=== PATIENT | male | born 1945 | race Caucasian/White ===

== ENCOUNTER → 2016-11-17 | Outpatient (REF) | payer MEDICARE ==
[~2016-11-17] MED LIST: ATOR1TAB21 PO; CIPR25SS OR; NORV5TAB OR; VITA1CAP40 PO; ZEST20TA OR; ZOLO50TA OR; ZYPR15TA OR
[2016-11-17 16:14] LABS: ALBUMIN 3.8 GM/DL (3.2-5.2); ALBUMIN/GLOBULIN RATIO 1.12 (1.00-1.93); BILIRUBIN,TOTAL 0.4 MG/DL (0.2-1.0); CALCIUM LEVEL 9.4 MG/DL (8.8-10.2); CREATININE FOR GFR 1.28 MG/DL (0.70-1.30); GLOMERULAR FILTRATION RATE 59.1 (>42); POTASSIUM SERUM 4.9 MEQ/L (3.5-5.1); TOTAL PROTEIN 7.2 GM/DL (6.4-8.2)
== END ==
LOC: M LAB REF 11:52
PROVIDERS: ATTEND Family Medicine Addiction Medicine
DX: I10 Essential (primary) hypertension (principal); E78.5 Hyperlipidemia, unspecified

== ENCOUNTER → 2017-05-31 | Outpatient (REF) | payer MEDICARE ==
[2017-05-31 13:39] LABS: ALBUMIN 4.1 GM/DL (3.2-5.2); ALBUMIN/GLOBULIN RATIO 1.14 (1.00-1.93); ALKALINE PHOSPHATASE 69 U/L (45-117); ALT/SGPT 19 U/L (12-78); ANION GAP 4 MEQ/L (8-16); AST/SGOT 21 U/L (7-37); BILIRUBIN,TOTAL 0.4 MG/DL (0.2-1.0); BLOOD UREA NITROGEN 16 MG/DL (7-18); CALCIUM LEVEL 9.2 MG/DL (8.8-10.2); CARBON DIOXIDE LEVEL 32 MEQ/L (21-32); CHLORIDE LEVEL 98 MEQ/L (98-107); CHOLESTEROL LEVEL 160 MG/DL (<200); CHOLESTEROL RISK RATIO 2.424 (<5); CREATININE FOR GFR 1.16 MG/DL (0.70-1.30); GLOMERULAR FILTRATION RATE > 60.0 (>42); GLUCOSE, FASTING 76 MG/DL (70-100); HDL CHOLESTEROL 66 MG/DL (>40); LDL CHOLESTEROL 73.8 MG/DL (<100); NON-HDL-C 94 MG/DL; SODIUM LEVEL 134 MEQ/L (136-145); THYROID STIMULATING HORMONE 0.539 uIU/ML (0.358-3.740); TOTAL PROTEIN 7.7 GM/DL (6.4-8.2); TRIGLYCERIDES LEVEL 101 MG/DL (<150)
== END ==
LOC: M LAB REF 11:56
DX: I10 Essential (primary) hypertension (principal)
CPT/HCPCS: 84443

== ENCOUNTER → 2018-06-23 | Outpatient (REF) | payer MEDICARE ==
[~2018-06-23] MED LIST changes: -VITA1CAP40 PO; +VITA50005 PO
[2018-06-23 13:07] LABS: BASO % 0.7 % (0.0-1.0); EOS # 0.1 10^3/uL (0.0-0.50); EOS % 1.2 % (0.0-3.0); HEMATOCRIT 43.5 % (42.0-52.0); HEMOGLOBIN 14.4 g/dl (13.5-17.5); LYMPH # 0.9 10^3/uL (1.5-4.5); LYMPH % 15.9 % (24.0-44.0); MEAN CORPUSCULAR HEMOGLOBIN 32.5 pg (27.0-33.0); MEAN CORPUSCULAR HGB CONC 33.1 g/dl (32.0-36.5); MEAN CORPUSCULAR VOLUME 98.2 fl (80.0-96.0); MONO # 0.4 10^3/uL (0.0-0.8); MONO % 6.7 % (0.0-5.0); NEUTROPHILS # 4.3 10^3/uL (1.8-7.7); PLATELET COUNT, AUTOMATED 291 10^3/uL (150-450); RED BLOOD COUNT 4.43 10^6/uL (4.30-6.10); WHITE BLOOD COUNT 5.7 10^3/uL (4.0-10.0)
[2018-06-23 13:29] LABS: APPEARANCE, URINE CLEAR (CLEAR); BACTERIA, URINE AUTO NEGATIVE (NEGATIVE); BILIRUBIN, URINE AUTO NEGATIVE (NEGATIVE); BLOOD, URINE BLOOD NEGATIVE (NEGATIVE); COLOR, URINE YELLOW (YELLOW); GLUCOSE, URINE (UA) AUTO NEGATIVE (NEGATIVE); KETONE, URINE AUTO NEGATIVE (NEGATIVE); LEUKOCYTE ESTERASE, URINE AUTO NEGATIVE (NEGATIVE); NITRITE, URINE AUTO NEGATIVE (NEGATIVE); PROTEIN, URINE AUTO NEGATIVE (NEGATIVE); RBC, URINE AUTO 0 /HPF (0-3); SPECIFIC GRAVITY URINE AUTO 1.008 (1.002-1.035); SQUAMOUS EPITHELIAL CELL UR AU 0 /HPF (0-6); UROBILINOGEN, URINE AUTO 0.2 mg/dL (0.0-2.0); WBC, URINE AUTO 0 /HPF (0-3)
[2018-06-23 13:41] LABS: ALBUMIN 3.9 GM/DL (3.2-5.2); ALT/SGPT 19 U/L (12-78); BILIRUBIN,TOTAL 0.3 MG/DL (0.2-1.0); BLOOD UREA NITROGEN 23 MG/DL (7-18); CALCIUM LEVEL 8.9 MG/DL (8.8-10.2); CARBON DIOXIDE LEVEL 34 MEQ/L (21-32); CHLORIDE LEVEL 99 MEQ/L (98-107); CHOLESTEROL LEVEL 160 MG/DL (<200); CHOLESTEROL RISK RATIO 2.388 (<5); CREATININE FOR GFR 1.04 MG/DL (0.70-1.30); GLOMERULAR FILTRATION RATE > 60.0 (>42); GLUCOSE, FASTING 117 MG/DL (70-100); HDL CHOLESTEROL 67 MG/DL (>40); LDL CHOLESTEROL 81 MG/DL (<100); NON-HDL-C 93 MG/DL; POTASSIUM SERUM 4.8 MEQ/L (3.5-5.1); SODIUM LEVEL 137 MEQ/L (136-145); THYROID STIMULATING HORMONE 0.484 uIU/ML (0.358-3.740); TOTAL PROTEIN 7.2 GM/DL (6.4-8.2); TRIGLYCERIDES LEVEL 59 MG/DL (<150)
[2018-06-23 14:11] LABS: TOTAL 25(OH) VITAMIN D 9.6 NG/ML (30.0-100.0)
[2018-06-23 16:12] LABS: HEMOGLOBIN A1c 5.9 %
[2018-06-24 18:47] LABS: Lyme Disease IgG/IgM Antibodie <0.91 ISR (0.00-0.90); Lyme Disease IgM Ab Quantitati <0.80 index (0.00-0.79)
== END ==
LOC: M LAB REF 12:28
PROVIDERS: ATTEND Family Medicine
DX: Z12.5 Encounter for screening for malignant neoplasm of prostate (principal); Z13.228 Encounter for screening for other metabolic disorders; Z79.899 Other long term (current) drug therapy
CPT/HCPCS: 80053; 80061; 81001; 82306; 83036; 84439; 84443; 85025; 86617; G0103

== ENCOUNTER → 2018-10-28 | Outpatient (REF) | payer MEDICARE ==
[~2018-10-28] MED LIST changes: +FLUT1BLS5; +PRED20TA PO; +SPIR1CAP; +VENTAER INH
[2018-10-28 13:12] LABS: HEMOGLOBIN A1c 5.8 %
[2018-10-28 13:45] LABS: ALBUMIN 3.7 GM/DL (3.2-5.2); ALT/SGPT 49 U/L (12-78); BILIRUBIN,TOTAL 0.4 MG/DL (0.2-1.0); BLOOD UREA NITROGEN 17 MG/DL (7-18); CALCIUM LEVEL 9.5 MG/DL (8.8-10.2); CARBON DIOXIDE LEVEL 34 MEQ/L (21-32); CHLORIDE LEVEL 89 MEQ/L (98-107); CREATININE FOR GFR 0.97 MG/DL (0.70-1.30); GLOMERULAR FILTRATION RATE > 60.0 (>42); GLUCOSE, FASTING 91 MG/DL (70-100); POTASSIUM SERUM 4.6 MEQ/L (3.5-5.1); SODIUM LEVEL 129 MEQ/L (136-145); TOTAL PROTEIN 6.7 GM/DL (6.4-8.2)
== END ==
LOC: M LAB REF 12:38
PROVIDERS: ATTEND Family Medicine
DX: R73.03 Prediabetes (principal)

== ENCOUNTER 2018-10-31 19:44 | Emergency (ER) | payer MEDICARE ==
[~2018-10-31] VITALS: Ht 167.6 cm; Wt 68.2 kg
[~2018-10-31 19:44] MED LIST changes: -FLUT1BLS5; -PRED20TA PO; -SPIR1CAP; -VENTAER INH
[2018-10-31] MEDS ORDERED: FLUT1BLS5 (20:07)
[2018-10-31] MEDS ORDERED: SPIR1CAP (20:07)
[2018-10-31] MEDS ORDERED: ALBUTEROL SULFATE 2.5 MG/0.5 ML INH NEB SOLN INH ONE (20:15)
[2018-10-31] MEDS ORDERED: IPRATROPIUM 0.5MG/ALBUTEROL 2.5MG INH SOL UD 3ML (DUONEB)(J7620) NEB ONE (20:15)
[2018-10-31 20:28] LABS: BASO % 0.6 % (0.0-1.0); EOS # 0.1 10^3/uL (0.0-0.5); EOS % 1.3 % (0.0-3.0); LYMPH # 1.3 10^3/uL (1.5-5.0); MEAN CORPUSCULAR HEMOGLOBIN 33.2 pg (27.0-33.0); MEAN CORPUSCULAR HGB CONC 34.2 g/dl (32.0-36.5); MEAN CORPUSCULAR VOLUME 96.9 fl (80.0-96.0); MONO # 0.6 10^3/uL (0.0-0.8); MONO % 8.4 % (0.0-5.0); NEUTROPHILS # 4.9 10^3/uL (1.5-8.5); NEUTROPHILS % 70.4 % (36.0-66.0); PLATELET COUNT, AUTOMATED 220 10^3/uL (150-450); RED BLOOD COUNT 3.92 10^6/uL (4.30-6.10); WHITE BLOOD COUNT 6.9 10^3/uL (4.0-10.0)
[2018-10-31 20:38] LABS: INR 0.9; PROTHROMBIN TIME 11.9 SECONDS (11.8-14.0)
[2018-10-31 20:39] LABS: PARTIAL THROMBOPLASTIN TIME 27.9 SECONDS (25.0-38.4)
[2018-10-31 20:55] LABS: ALBUMIN 3.4 GM/DL (3.2-5.2); ALT/SGPT 41 U/L (12-78); BILIRUBIN,DIRECT 0.1 MG/DL (0.0-0.2); BILIRUBIN,TOTAL 0.3 MG/DL (0.2-1.0); BLOOD UREA NITROGEN 24 MG/DL (7-18); CALCIUM LEVEL 8.9 MG/DL (8.8-10.2); CARBON DIOXIDE LEVEL 33 MEQ/L (21-32); CHLORIDE LEVEL 95 MEQ/L (98-107); CK-MB VALUE MASS 4.5 NG/ML (<3.6); CPK CREATINE PHOSPHOKINASE 304 U/L (39-308); CREATININE FOR GFR 0.94 MG/DL (0.70-1.30); GLOMERULAR FILTRATION RATE > 60.0 (>42); GLUCOSE, FASTING 88 MG/DL (70-100); LIPASE 148 U/L (73-393); MB/CK RELATIVE INDEX 1.48 (< OR =4); NT-PRO BNP 256 PG/ML (<125); POTASSIUM SERUM 4.5 MEQ/L (3.5-5.1); SODIUM LEVEL 132 MEQ/L (136-145); TOTAL PROTEIN 6.4 GM/DL (6.4-8.2); TROPONIN I < 0.02 NG/ML (< 0.10)
[2018-10-31] MEDS ORDERED: dexameTHASONE 20 MG/5 ML VIAL (J1100) IV ONE (22:45)
[2018-10-31] MEDS ORDERED: PRED20TA PO (22:59)
[2018-10-31] MEDS ORDERED: VENTAER INH (22:59)
[2018-10-31 23:00] VITALS: BP 141/69
--- NOTE | 2018-11-01 05:03 | ECGEPIP ---
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
--- NOTE | 2018-11-01 07:19 | REP ---
Portable chest, 08:35 p.m., single AP view with the patient upright: Comparison is the PA and lateral chest dated 01/02/2011. There are small scattered nodular densities throughout the lung bullock as an interval change. The There is mild interstitial coarsening as an interval change. There are no focal infiltrates or pleural effusions. Cardiac size is normal. There is mild thoracic scoliosis convex left. The quincy, mediastinum, skeletal structures are otherwise unremarkable. Impression: Small nodular densities and a mild interstitial coarsening as interval changes. Chest CT might be considered for further evaluation. Electronically Signed by Nader Moe MD 11/01/2018 07:11 A
== END 2018-10-31 23:18 | disposition home or self-care (01) ==
LOC: M ED 19:44
DX: J44.1 Chronic obstructive pulmonary disease with (acute) exacerbation (principal); Z99.81 Dependence on supplemental oxygen; F20.9 Schizophrenia, unspecified; F17.200 Nicotine dependence, unspecified, uncomplicated; Z79.82 Long term (current) use of aspirin; Z79.899 Other long term (current) drug therapy
CPT/HCPCS: 71045; 80048; 80076; 82550; 82553; 83690; 83880; 84443; 84484; 85025; 85610; 85730; 93005; 93041; 94640; 94760; 96374; 99285; J1100

== ENCOUNTER 2019-01-03 09:36 | Emergency (ER) | payer MEDICARE ==
[~2019-01-03] VITALS: Ht 167.6 cm; Wt 77.3 kg
[~2019-01-03 09:36] MED LIST changes: +FLUT1BLS5; +PRED20TA PO; +SPIR1CAP; +VENTAER INH
[2019-01-03 12:41] LABS: BASO % 0.5 % (0.0-1.0); EOS % 0.2 % (0.0-3.0); HEMATOCRIT 44.1 % (42.0-52.0); HEMOGLOBIN 13.6 g/dl (13.5-17.5); LYMPH # 0.7 10^3/uL (1.5-5.0); LYMPH % 8.6 % (24.0-44.0); MEAN CORPUSCULAR HEMOGLOBIN 32.6 pg (27.0-33.0); MEAN CORPUSCULAR HGB CONC 30.8 g/dl (32.0-36.5); MEAN CORPUSCULAR VOLUME 105.8 fl (80.0-96.0); MONO # 0.5 10^3/uL (0.0-0.8); MONO % 5.7 % (0.0-5.0); NEUTROPHILS # 6.9 10^3/uL (1.5-8.5); NEUTROPHILS % 84.6 % (36.0-66.0); PLATELET COUNT, AUTOMATED 299 10^3/uL (150-450); RED BLOOD COUNT 4.17 10^6/uL (4.30-6.10); WHITE BLOOD COUNT 8.1 10^3/uL (4.0-10.0)
[2019-01-03 13:00] LABS: ALBUMIN 3.5 GM/DL (3.2-5.2); ALT/SGPT 35 U/L (12-78); BILIRUBIN,DIRECT < 0.1 MG/DL (0.0-0.2); BILIRUBIN,TOTAL 0.4 MG/DL (0.2-1.0); BLOOD UREA NITROGEN 17 MG/DL (7-18); CALCIUM LEVEL 9.2 MG/DL (8.8-10.2); CARBON DIOXIDE LEVEL 34 MEQ/L (21-32); CHLORIDE LEVEL 101 MEQ/L (98-107); CK-MB VALUE MASS 4.7 NG/ML (<3.6); CPK CREATINE PHOSPHOKINASE 188 U/L (39-308); CREATININE FOR GFR 0.88 MG/DL (0.70-1.30); GLOMERULAR FILTRATION RATE > 60.0 (>42); GLUCOSE, FASTING 89 MG/DL (70-100); NT-PRO BNP 1713 PG/ML (<125); POTASSIUM SERUM 4.3 MEQ/L (3.5-5.1); SODIUM LEVEL 137 MEQ/L (136-145); TOTAL PROTEIN 7.6 GM/DL (6.4-8.2); TROPONIN I < 0.02 NG/ML (< 0.10)
--- NOTE | 2019-01-03 13:27 | REP ---
Chest x-ray: Two views. History: Lower extremity edema. Shortness of breath. Comparison study: October 31, 2018. Findings: The lungs are hyperinflated as before but clear. Pleural angles are sharp. Heart size is borderline. Cardiothoracic ratio on the frontal view is 44.6%. The aorta is calcific and somewhat tortuous. Pulmonary vasculature is not increased. There are degenerative changes in the thoracic spine. Impression: Hyperinflation. Borderline heart size. Otherwise no acute disease. Electronically Signed by Bonilla Covington MD 01/03/2019 03:37 P
[2019-01-03] MEDS ORDERED: FUROSEMIDE 40 MG/4 ML VIAL (J1940) IV ONE (13:30)
[2019-01-03 13:52] LABS: APPEARANCE, URINE CLEAR (CLEAR); BACTERIA, URINE AUTO NEGATIVE (NEGATIVE); BILIRUBIN, URINE AUTO NEGATIVE (NEGATIVE); BLOOD, URINE BLOOD NEGATIVE (NEGATIVE); COLOR, URINE YELLOW (YELLOW); GLUCOSE, URINE (UA) AUTO NEGATIVE (NEGATIVE); KETONE, URINE AUTO NEGATIVE (NEGATIVE); LEUKOCYTE ESTERASE, URINE AUTO NEGATIVE (NEGATIVE); MUCUS, URINE SMALL (NEGATIVE); NITRITE, URINE AUTO NEGATIVE (NEGATIVE); PROTEIN, URINE AUTO NEGATIVE (NEGATIVE); RBC, URINE AUTO 3 /HPF (0-3); SPECIFIC GRAVITY URINE AUTO 1.012 (1.002-1.035); SQUAMOUS EPITHELIAL CELL UR AU 0 /HPF (0-6); UROBILINOGEN, URINE AUTO 0.2 mg/dL (0.0-2.0); WBC, URINE AUTO 1 /HPF (0-3)
[2019-01-03] MEDS ORDERED: TORS10TA3 PO (14:22)
[2019-01-03 14:27] VITALS: BP 180/95
--- NOTE | 2019-01-03 23:45 | ECGEPIP ---
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 Order Number: [id number] Reading MD: Felipe Coates Measurements Intervals [place] Rate: 76 P: 71 [place]: 135 QRS: 111 QRSD: 110 T: 63 QT: 359 QTc: 404 Interpretive Statements SINUS RHYTHM WITH SINUS ARRHYTHMIA INDETERMINATE AXIS RIGHT BUNDLE BRANCH BLOCK SIMILAR TO 10/31/18 Electronically Signed on 01-03-2019 23:45:40 EST by Felipe Coates
== END 2019-01-03 14:47 | disposition home or self-care (01) ==
LOC: M ED 09:36
DX: I50.9 Heart failure, unspecified (principal); M79.89 Other specified soft tissue disorders; I49.9 Cardiac arrhythmia, unspecified; I45.10 Unspecified right bundle-branch block; I11.0 Hypertensive heart disease with heart failure; F17.210 Nicotine dependence, cigarettes, uncomplicated; Z79.899 Other long term (current) drug therapy; Z79.51 Long term (current) use of inhaled steroids
CPT/HCPCS: 71046; 80048; 80076; 81001; 82550; 82553; 83880; 84484; 85025; 93005; 96374; 99284; J1940

== ENCOUNTER 2019-03-08 15:35 | Observation (INO) | payer MEDICARE ==
[~2019-03-08] VITALS: Ht 167.6 cm; Wt 58.2 kg
[~2019-03-08 15:35] MED LIST changes: +D-10TAB3 PO; -FLUT1BLS5; +FLUT1BLS5 PO; +LISI-538 PO; +OLAN15TA PO; +PANT40TA3 PO; +SERT-141 PO; -SPIR1CAP; +SPIR1CAP INH; +TOPR25TA PO; +TORS10TA3 PO
--- NOTE | 2019-03-08 16:27 | REP ---
No chest, 04:15 p.m., single AP view with the patient sitting: Comparisons are 02/25/2018 and 02/26/2019. The small left pleural effusion identified on 02/26/2019 has resolved. The The lung bullock otherwise clear but are again hyperinflated. Cardiac size is normal. The quincy, mediastinum, skeletal structures are unremarkable. Impression: Hyperinflation. The previous small left pleural effusion has resolved. Electronically Signed by Nader Moe MD 03/08/2019 04:19 P
[2019-03-08 16:30] LABS: BASO % 0.3 % (0.0-1.0); EOS % 0.3 % (0.0-3.0); HEMATOCRIT 34.4 % (42.0-52.0); HEMOGLOBIN 10.5 g/dl (13.5-17.5); LYMPH # 0.5 10^3/uL (1.5-5.0); LYMPH % 6.9 % (24.0-44.0); MEAN CORPUSCULAR HEMOGLOBIN 30.9 pg (27.0-33.0); MEAN CORPUSCULAR HGB CONC 30.5 g/dl (32.0-36.5); MEAN CORPUSCULAR VOLUME 101.2 fl (80.0-96.0); MONO # 0.4 10^3/uL (0.0-0.8); MONO % 5.4 % (0.0-5.0); NEUTROPHILS # 6.7 10^3/uL (1.5-8.5); NEUTROPHILS % 86.7 % (36.0-66.0); PLATELET COUNT, AUTOMATED 278 10^3/uL (150-450); WHITE BLOOD COUNT 7.7 10^3/uL (4.0-10.0)
--- NOTE | 2019-03-08 16:39 | REP ---
CT brain without contrast: History: Altered mental status. No comparison brain imaging. CT findings: Digital preliminary concrete precast moulder radiograph demonstrates that the patient is edentulous. Bone window settings show an intact bony calvarium. There is vascular calcification in the distal carotid and distal vertebral artery distribution. Visualized paranasal sinuses are clear. No intraorbital abnormality is seen. There is mild generalized volume loss. Physiologic calcification is seen in the basal ganglia bilaterally. There is no evidence of intracranial hemorrhage. No infarct, mass, extra-axial fluid collection, or midline shift is seen. Impression: Vascular calcification and mild diffuse atrophy. No acute intracranial abnormality. Electronically Signed by Bonilla Covington MD 03/08/2019 07:07 P
[2019-03-08 16:41] LABS: INR 0.95; PROTHROMBIN TIME 12.4 SECONDS (11.8-14.0)
[2019-03-08 17:04] LABS: ALBUMIN 3.2 GM/DL (3.2-5.2); ALT/SGPT 84 U/L (12-78); BILIRUBIN,DIRECT 0.1 MG/DL (0.0-0.2); BILIRUBIN,TOTAL 0.3 MG/DL (0.2-1.0); BLOOD UREA NITROGEN 25 MG/DL (7-18); CALCIUM LEVEL 8.4 MG/DL (8.8-10.2); CARBON DIOXIDE LEVEL 34 MEQ/L (21-32); CHLORIDE LEVEL 95 MEQ/L (98-107); CK-MB VALUE MASS 6.9 NG/ML (<3.6); CPK CREATINE PHOSPHOKINASE 206 U/L (39-308); CREATININE FOR GFR 0.81 MG/DL (0.70-1.30); ETHYL ALCOHOL (ETHANOL) < 0.003 % (0.000-0.010); GLOMERULAR FILTRATION RATE > 60.0 (>42); GLUCOSE, FASTING 91 MG/DL (70-100); LIPASE 130 U/L (73-393); MB/CK RELATIVE INDEX 3.35 (< OR =4); NT-PRO BNP 7349 PG/ML (<125); POTASSIUM SERUM 4.9 MEQ/L (3.5-5.1); SODIUM LEVEL 135 MEQ/L (136-145); TOTAL PROTEIN 6.7 GM/DL (6.4-8.2); TROPONIN I 0.03 NG/ML (< 0.10)
[2019-03-08] MEDS ORDERED: METO1TAB32 PO (17:14)
[2019-03-08] MEDS ORDERED: LISI-538 PO (17:14)
[2019-03-08] MEDS ORDERED: VITA100054 PO (17:14)
[2019-03-08] MEDS ORDERED: PANT-23 PO (17:14)
[2019-03-08] MEDS ORDERED: ACETAMINOPHEN TAB 650MG DOSE (2X325MG) PO PRN (18:15)
--- NOTE | 2019-03-08 20:08 | ECGEPIP ---
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
--- NOTE | 2019-03-08 22:12 | HPEPDOC ---
General Date of Admission Mar 08, 2019 at 15:36 Date of Service: Mar 08, 2019 Chief Complaint The patient is a 73-year-old male admitted with a reason for visit of Edema, Lower Extremity, Encephalopathy. Source: Family Exam Limitations: Mild cognitive slowing Timing/Duration: Unsure Severity: Mild History of Present Illness 73 year old male just discharged on March 02 with resolved diastolic CHF exacerbation and stable lower GI bleed--he had already been scheduled for outpatient endoscopy. Was brought in by family after being found down confused and incontinent of stool and urine. This appeared to have gone on for a few days--patient lives alone. Daughter had come by to take him to a oim consultant a ppointment. Patient was unable to give any other history, states he simply "had lost control". Family concerned he is not taking his meds. Home Medications Scheduled Atorvastatin Calcium (Atorvastatin Calcium) 20 Mg Tab, 20 MG PO QHS, (Reported) Cholecalciferol (Vitamin D3) (Vitamin D3) 1,000 Unit Capsule, 1,000 UNIT PO DA GILDA, (Reported) Fluticasone Propion/Salmeterol (Fluticasone-Salmeterol 250-50) 1 Each Blst.w.dev, 1 PUFF PO BID, (Reported) Lisinopril (Lisinopril) 20 Mg Tablet, 10 MG PO DAILY, (Reported) MEDICATION WAS RECENTLY CHANGED FROM 20MG DAILY TO 10MG DAILY (1/2 TAB). PATIENT HAS NOT BEEN CUTTING THIS MEDICATION IN HALF Metoprolol Succinate (Metoprolol Succinate) 25 Mg Tab.er.24h, 25 MG PO QHS, (Reported) Olanzapine (Olanzapine) 15 Mg Tablet, 15 MG PO QHS, (Reported) Pantoprazole Sodium (Pantoprazole Sodium) 40 Mg Tablet.dr, 40 MG PO DAILY, (Reported) Sertraline Hcl (Sertraline HCl) 50 Mg Tablet, 50 MG PO DAILY, (Reported) Tiotropium [place] (Spiriva) 18 Mcg Cap.w.dev, 1 CAP INH DAILY, (Reported) Torsemide (Torsemide) 10 Mg Tablet, 10 MG PO DAILY, (Reported) Scheduled PRN Albuterol Sulfate (Ventolin Hfa) 18 Gm Hfa.aer.ad, 2 PUFF INH Q4H PRN for wheezing, (Reported) Allergies Coded Allergies: No Known Allergies (Unverified , 10/31/18) Past Medical History Medical History COPD with oxygen use at night, anemia due to GI blood loss, dyslipidemia, essential hypertension, chronic diastolic CHF, pulmonary hypertension, reported schizophrenia Surgical History multiple ortho surgeries Family History Unable to obtain from patient due to his mental status Social History * Smoker: current smoker Alcohol: Denies Drugs: denies Psychosocial History: Schizophrenia retired, lives alone, reported alcohol dependency but no documentation A-FIB/CHADSVASC A-FIB History Current/History of A-Fib/PAF?: No Current PO Anticoag Therapy: No Review of Systems Other systems 10 system review otherwise negative except as stated in the HPI. Physical Examination General Exam: Positive: Cooperative Eye Exam: Positive: PERRLA, Conjunctiva & lids normal ENT Exam: Positive: Atraumatic, Mucous membr. moist/pink Neck Exam: Positive: Supple; Negative: JVD, thyromegaly Chest Exam: Positive: Clear to auscultation, Normal air movement Heart Exam: Positive: Rate Normal, Regular Rhythm, Normal S1, Normal S2; Negative: Murmurs, Rubs Telemetry: Positive: No significant arrhythmia, Sinus Abdomen Exam: Positive: Normal bowel sounds, Soft; Negative: Tenderness, Hepatospenomegaly Extremity Exam: Positive: Edema Skin Exam: Positive: Nl turgor and temperature Neuro Exam: Positive: Cranial Nerves 3-12 NL Psych Exam: Positive: Mood NL Other physical findings Patient had been covered in stool but was cleaned up by ER nurses, scleral injection, was socially appropriate but vague with answering questions Vital Signs Vital Signs Date Time Temp Pulse Resp B/P (MAP) Pulse Ox O2 Delivery O2 Flow Rate FiO2 03/08/19 21:50 76 20 110/56 (74) 99 Nasal Cannula 3.0 03/08/19 15:35 97.7 Laboratory Data Labs 24H Laboratory Tests 2 03/08/19 16:14: Immature Granulocyte % (Auto) 0.4, Neutrophils (%) (Auto) 86.7H, Lymphocytes (%) (Auto) 6.9L, Monocytes (%) (Auto) 5.4H, Eosinophils (%) (Auto) 0.3, Basophils (%) (Auto) 0.3, Neutrophils # (Auto) 6.7, Lymphocytes # (Auto) 0.5L, Monocytes # (Auto) 0.4, Eosinophils # (Auto) 0.0, Basophils # (Auto) 0.0, Nucleated Red Blood Cells % (auto) 0.0, Prothrombin Time 12.4, Prothromb Time International Ratio 0.95, Anion Gap 6L, Glomerular Filtration Rate > 60.0, Calcium Level 8.4L, Total Bilirubin 0.3, Direct Bilirubin 0.1, Aspartate Amino Transf (AST/SGOT) 54H, Alanine Aminotransferase (ALT/SGPT) 84H, Alkaline Phosphatase 96, Ammonia < 10, Total Creatine Kinase 206, Creatine Kinase MB 6.9H, Creatine Kinase MB Rela tive Index 3.35, Troponin I 0.03, OG-Lrn-S-Type Natriuretic Peptide 7349H, Total Protein 6.7, Albumin 3.2, Albumin/Globulin Ratio 0.91L, Lipase 130, Thyroid Stimulating Hormone (TSH) 3.930H, Ethyl Alcohol Level < 0.003 CBC/BMP Laboratory Tests 03/08/19 16:14 Assessment/Plan 1. Diastolic CHF exacerbation Had some lower extremity swelling but otherwise no respiratory distress. Restore to his medication regimen. 2. Acute on chronic anemia with recent GI blood loss Had received transfusion with last hospital stay. No manoj blood loss or drop in hemoglobin. Already scheduled with outpatient endoscopy but will discuss with GI service 3. Metabolic encephalopathy Ammonia and alcohol levels negative. Head CT negative for any infarct or other lesion. Etiology unclear and already appears more alert. Will monitor. Also as recently discharged from hospital will have him assessed by PT/OT services. May need home care versus placement. 4. Tobacco dependency Nicotine patch 5. DVT prophylaxis Lovenox Patient placed observation status. Plan / VTE VTE Prophylaxis Ordered?: Yes Plan Diet: Continue Current Activity: Encourage Ambulation Therapy: PT, OT Diagnostics: Repeat Labs in AM Anticipated Discharge: Home With Services, Sub Acute Rehab JAMILAH ROSADO MD Mar 08, 2019 22:12
[2019-03-08] MEDS ORDERED: NICOTINE 14 MG/24 HR TRANSDERMAL TD ONE (22:30)
[2019-03-08] MEDS: ATORVASTATIN 20 MG TAB PO SCH (23:03)
[2019-03-08] MEDS: METOPROLOL SUCC *XL* 25MG TAB (TopROL *XL*) PO SCH (23:03)
[2019-03-08] MEDS: OLANZapine 5 MG TAB PO SCH (23:03)
[2019-03-09] MEDS ORDERED: METAL LOCK LOOP XX ONE ×2 (02:52→05:18)
[2019-03-09 08:15] LABS: HEMOGLOBIN 9.9 g/dl (13.5-17.5); MEAN CORPUSCULAR HEMOGLOBIN 30.7 pg (27.0-33.0); MEAN CORPUSCULAR VOLUME 102.2 fl (80.0-96.0); PLATELET COUNT, AUTOMATED 260 10^3/uL (150-450); RED BLOOD COUNT 3.23 10^6/uL (4.30-6.10); WHITE BLOOD COUNT 7.2 10^3/uL (4.0-10.0)
[2019-03-09 08:42] LABS: ALBUMIN 2.6 GM/DL (3.2-5.2); ALT/SGPT 62 U/L (12-78); BILIRUBIN,TOTAL 0.3 MG/DL (0.2-1.0); BLOOD UREA NITROGEN 20 MG/DL (7-18); CALCIUM LEVEL 8.1 MG/DL (8.8-10.2); CARBON DIOXIDE LEVEL 36 MEQ/L (21-32); CHLORIDE LEVEL 99 MEQ/L (98-107); CREATININE FOR GFR 0.79 MG/DL (0.70-1.30); GLOMERULAR FILTRATION RATE > 60.0 (>42); GLUCOSE, FASTING 75 MG/DL (70-100); POTASSIUM SERUM 4.7 MEQ/L (3.5-5.1); SODIUM LEVEL 137 MEQ/L (136-145); TOTAL PROTEIN 6.1 GM/DL (6.4-8.2)
[2019-03-09] MEDS ORDERED: NICOTINE 14 MG/24 HR TRANSDERMAL TD SCH ×3 (09:00→23:00)
[2019-03-09] MEDS: lisinopriL 10 MG TAB PO SCH (09:07)
[2019-03-09] MEDS: VITAMIN D 1,000 INTERNATIONAL UNITS TABLET PO SCH (09:07)
[2019-03-09] MEDS: PANTOPRAZOLE 40MG TAB (PROTONIX) PO SCH (09:08)
[2019-03-09] MEDS: SERTRALINE HCL 50 MG TAB PO SCH (09:08)
[2019-03-09] MEDS: ENOXAPARIN 40 MG/0.4 ML SYRINGE (J1650) SC SCH (09:09)
[2019-03-09] MEDS: TIOTROPIUM INHALER/CAPSULE (SPIRIVA) INH SCH (10:57)
[2019-03-09] MEDS: TORSEMIDE 10 MG TABLET PO SCH (11:18)
[2019-03-09] MEDS: METOPROLOL SUCC *XL* 25MG TAB (TopROL *XL*) PO SCH (20:39)
[2019-03-09] MEDS: ATORVASTATIN 20 MG TAB PO SCH (20:39)
[2019-03-09] MEDS: OLANZapine 5 MG TAB PO SCH (20:39)
[2019-03-09 20:43] VITALS: BP 108/53
--- NOTE | 2019-03-09 21:12 | IPNPDOC ---
Text Note Date of Service The patient was seen on 03/09/19. NOTE SUBJECTIVE Patient is remarkably awake, alert, conversant and appropriate today. He has not had any further incontinence. Patient was admitted with encephalopathy and concern for possible CHF exacerbation. OBJECTIVE please see vital signs below Physical Exam: General: Remains kempt after cleanup by nurses HEENT: neck is supple with no adenopathy or thyromegaly CV: RRR, no murmur CHEST: good air movement ABD: soft, nontender, non-distended EXT: trace edema to ankles ASSESSMENT/PLAN: 1. Metabolic encephalopathy Seems resolved. Pending PT/OT eval to assess for home needs. 2. Chronic diastolic CHF Recent diagnosis, maintained on medication regimen, no acute exacerbation. 3. Anemia of chronic disease Recent lower GI bleed, patient remains hemodynamically stable, HGB stable, no manoj bleeding. Will discuss with GI service whether there is need for urgent endoscopy. VS,Fishbone, I+O VS, Fishbone, I+O Laboratory Tests 03/09/19 07:51 Vital Signs Date Time Temp Pulse Resp B/P (MAP) Pulse Ox O2 Delivery O2 Flow Rate FiO2 03/09/19 20:43 72 20 108/53 (71) 93 Room Air 03/09/19 20:42 96.4 03/09/19 13:30 3.0 I&O- Last 24 Hours up to 6 AM 03/09/19 06:00 Output Total 300 ml Balance -300 ml JAMILAH ROSADO MD Mar 09, 2019 21:12
[2019-03-10 06:33] VITALS: BP 165/73
[2019-03-10] MEDS: TIOTROPIUM INHALER/CAPSULE (SPIRIVA) INH SCH (07:55)
[2019-03-10 08:38] VITALS: BP 165/73
[2019-03-10] MEDS: PANTOPRAZOLE 40MG TAB (PROTONIX) PO SCH (08:38)
[2019-03-10] MEDS: SERTRALINE HCL 50 MG TAB PO SCH (08:38)
[2019-03-10] MEDS: lisinopriL 10 MG TAB PO SCH (08:38)
[2019-03-10] MEDS: VITAMIN D 1,000 INTERNATIONAL UNITS TABLET PO SCH (08:39)
[2019-03-10] MEDS: TORSEMIDE 10 MG TABLET PO SCH (08:39)
[2019-03-10] MEDS: ENOXAPARIN 40 MG/0.4 ML SYRINGE (J1650) SC SCH (08:39)
--- NOTE | 2019-03-10 19:40 | DS.PDOC ---
Discharge Summary General Date of Admission Mar 08, 2019 at 15:36 Date of Discharge March 10, 2019 Discharge Summary PROCEDURES PERFORMED DURING STAY: [None]. ADMITTING DIAGNOSES: 1. [Metabolic encephalopathy]. DISCHARGE DIAGNOSES: 1. [Metabolic encephalopathy resolved, anemia of chronic disease, chronic diastolic CHF, ]. COMPLICATIONS/CHIEF COMPLAINT: Edema, Lower Extremity, Encephalopathy. HISTORY OF PRESENT ILLNESS/HOSPITAL COURSE: [73 year old male discharged from hospital March 02 with diagnoses of lower GI bleed and diastolic CHF. Returned to hospital by family after being found down confused and incontinent. Patient ruled out for acute cardiac or brain event. His apparent metabolic encephalopathy resolved and he was coherent. Bowel/bladder incontinence did not recur. Assessment by PT/OT did not reveal any care needs; patient politely refused any home care services. Chronic anemia eval was discussed with GI service. As he was hemodynamically stable with no active bleeding and hemoglobin had not dropped since discharge he was to proceed with outpatient endoscopy as planned. ]. DISCHARGE MEDICATIONS: Please see below. ALLERGIES: Please see below. PHYSICAL EXAMINATION ON DISCHARGE: VITAL SIGNS: Please see below. HEENT: neck is supple with no adenopathy or thyromegaly CV: RRR, no murmur CHEST: good air movement ABD: soft, nontender, non-distended EXT: trace edema to ankles LABORATORY DATA: Please see below. IMAGING: HEAD CT [Impression: Vascular calcification and mild diffuse atrophy. No acute intracranial abnormality. Electronically Signed by Bonilla Covington MD 03/08/2019 07:07 P] PROGNOSIS: ACTIVITY: [As tolerated]. DIET: [heart health] DISCHARGE PLAN: [Determined stable for discharge to home; no PT/OT needs identified and patient declines home health services. Will follow up with Drs. Sales or Kizzy for outpatient endoscopy as arranged.] DISPOSITION: Home, Self-Care. DISCHARGE INSTRUCTIONS: 1. . ITEMS TO FOLLOWUP ON ON OUTPATIENT: 1. . DISCHARGE CONDITION: [Stable]. TIME SPENT ON DISCHARGE: [35] minutes. Vital Signs/I&Os Vital Signs Date Time Temp Pulse Resp B/P (MAP) Pulse Ox O2 Delivery O2 Flow Rate FiO2 03/10/19 08:40 3.0 03/10/19 08:38 165/73 03/10/19 06:33 97.9 60 18 95 Nasal Cannula I&O- Last 24 Hours up to 6 AM 03/10/19 06:00 Intake Total 1500 ml Output Total 450 ml Balance 1050 ml Discharge Medications Scheduled Atorvastatin Calcium (Atorvastatin Calcium) 20 Mg Tab, 20 MG PO QHS, (Reported) Cholecalciferol (Vitamin D3) (Vitamin D3) 1,000 Unit Capsule, 1,000 UNIT PO DAILY, (Reported) Fluticasone Propion/Salmeterol (Fluticasone-Salmeterol 250-50) 1 Each Blst.w.dev, 1 PUFF PO BID, (Reported) Lisinopril (Lisinopril) 20 Mg Tablet, 10 MG PO DAILY, (Reported) MEDICATION WAS RECENTLY CHANGED FROM 20MG DAILY TO 10MG DAILY (/2 TAB). PATIENT HAS NOT BEEN CUTTING THIS MEDICATION IN HALF Metoprolol Succinate (Metoprolol Succinate) 25 Mg Tab.er.24h, 25 MG PO QHS, (Reported) Olanzapine (Olanzapine) 15 Mg Tablet, 15 MG PO QHS, (Reported) Pantoprazole Sodium (Pantoprazole Sodium) 40 Mg Tablet.dr, 40 MG PO DAILY, (Reported) Sertraline Hcl (Sertraline HCl) 50 Mg Tablet, 50 MG PO DAILY, (Reported) Tiotropium [place] (Spiriva) 18 Mcg Cap.w.dev, 1 CAP INH DAILY, (Reported) Torsemide (Torsemide) 10 Mg Tablet, 10 MG PO DAILY, (Reported) Scheduled PRN Albuterol Sulfate (Ventolin Hfa) 18 Gm Hfa.aer.ad, 2 PUFF INH Q4H PRN for wheezing, (Reported) Allergies Coded Allergies: No Known Allergies (Unverified , 10/31/18) JAMILAH ROSADO MD Mar 10, 2019 19:40
== END 2019-03-10 13:30 | disposition home or self-care (01) ==
LOC: M ED 15:35 → M ED INP 15:36 → ENRESERVDT 20:39 → ENRESERVTM 20:39 → CANRESERV 21:12 → ENRESERV 03-09 12:22 → M MS5PR 03-09 13:10
PROVIDERS: ADMIT Internal Medicine; ATTEND Internal Medicine
DX: G93.41 Metabolic encephalopathy (principal); D50.0 Iron deficiency anemia secondary to blood loss (chronic); I50.32 Chronic diastolic (congestive) heart failure; R15.9 Full incontinence of feces; R32 Unspecified urinary incontinence; G31.1 Senile degeneration of brain, not elsewhere classified; I67.2 Cerebral atherosclerosis; J44.9 Chronic obstructive pulmonary disease, unspecified; Z99.81 Dependence on supplemental oxygen; E78.5 Hyperlipidemia, unspecified; I11.0 Hypertensive heart disease with heart failure; I27.20 Pulmonary hypertension, unspecified; I48.92 Unspecified atrial flutter; F20.9 Schizophrenia, unspecified; Z79.899 Other long term (current) drug therapy; Z79.51 Long term (current) use of inhaled steroids; F17.200 Nicotine dependence, unspecified, uncomplicated
CPT/HCPCS: 36415; 70450; 71045; 80048; 80053; 80076; 82140; 82550; 82553; 83690; 83880; 84443; 84484; 85025; 85027; 85610; 86850; 86900; 86901; 93005; 93041; 94640; 94760; 96372; 97161; 97165; 99285; G0378; G0480; J1650

== ENCOUNTER → 2019-03-14 | Outpatient (REF) | payer MEDICARE ==
[~2019-03-14] MED LIST changes: +METO1TAB32 PO; +PANT-23 PO; +VITA100054 PO
[2019-03-14 20:39] LABS: ALBUMIN 3.2 GM/DL (3.2-5.2); ALT/SGPT 138 U/L (12-78); BILIRUBIN,TOTAL 0.3 MG/DL (0.2-1.0); BLOOD UREA NITROGEN 25 MG/DL (7-18); CALCIUM LEVEL 8.9 MG/DL (8.8-10.2); CARBON DIOXIDE LEVEL 35 MEQ/L (21-32); CHLORIDE LEVEL 98 MEQ/L (98-107); CREATININE FOR GFR 0.89 MG/DL (0.70-1.30); GLOMERULAR FILTRATION RATE > 60.0 (>42); GLUCOSE, FASTING 80 MG/DL (70-100); POTASSIUM SERUM 4.7 MEQ/L (3.5-5.1); SODIUM LEVEL 137 MEQ/L (136-145); TOTAL PROTEIN 6.5 GM/DL (6.4-8.2)
[2019-03-14 20:51] LABS: BASO % 0.2 % (0.0-1.0); EOS % 0.2 % (0.0-3.0); HEMATOCRIT 32.1 % (42.0-52.0); HEMOGLOBIN 10.3 g/dl (13.5-17.5); LYMPH # 0.6 10^3/uL (1.5-5.0); LYMPH % 13.2 % (24.0-44.0); MEAN CORPUSCULAR HGB CONC 32.1 g/dl (32.0-36.5); MEAN CORPUSCULAR VOLUME 96.7 fl (80.0-96.0); MONO # 0.3 10^3/uL (0.0-0.8); MONO % 7.2 % (0.0-5.0); NEUTROPHILS # 3.7 10^3/uL (1.5-8.5); NEUTROPHILS % 78.8 % (36.0-66.0); PLATELET COUNT, AUTOMATED 297 10^3/uL (150-450); RED BLOOD COUNT 3.32 10^6/uL (4.30-6.10); WHITE BLOOD COUNT 4.7 10^3/uL (4.0-10.0)
== END ==
LOC: M LAB REF 14:50
PROVIDERS: ATTEND Nurse Practitioner Family
DX: I50.9 Heart failure, unspecified (principal); K92.2 Gastrointestinal hemorrhage, unspecified

== ENCOUNTER 2019-04-08 20:17 | Inpatient (IN) | payer MEDICARE ==
[~2019-04-08] VITALS: Ht 167.6 cm; Wt 57.0 kg
[2019-04-08] MEDS ORDERED: NS 1,000 ML IV ONE (21:00)
[2019-04-08 21:13] LABS: INR 1.04; PARTIAL THROMBOPLASTIN TIME 25.2 SECONDS (25.0-38.4); PROTHROMBIN TIME 13.3 SECONDS (11.8-14.0)
[2019-04-08 21:18] LABS: HEMATOCRIT 35.4 % (42.0-52.0); HEMOGLOBIN 10.8 g/dl (13.5-17.5); MEAN CORPUSCULAR HGB CONC 30.5 g/dl (32.0-36.5); MEAN CORPUSCULAR VOLUME 95.2 fl (80.0-96.0); PLATELET COUNT, AUTOMATED 155 10^3/uL (150-450); RED BLOOD COUNT 3.72 10^6/uL (4.30-6.10)
[2019-04-08 21:34] LABS: ALBUMIN 2.5 GM/DL (3.2-5.2); ALT/SGPT 104 U/L (12-78); BILIRUBIN,DIRECT < 0.1 MG/DL (0.0-0.2); BILIRUBIN,TOTAL 0.4 MG/DL (0.2-1.0); CK-MB VALUE MASS 12.1 NG/ML (<3.6); CPK CREATINE PHOSPHOKINASE 238 U/L (39-308); ETHYL ALCOHOL (ETHANOL) < 0.003 % (0.000-0.010); LIPASE 111 U/L (73-393); MB/CK RELATIVE INDEX 5.08 (< OR =4); TOTAL PROTEIN 5.5 GM/DL (6.4-8.2); TROPONIN I < 0.02 NG/ML (< 0.10)
[2019-04-08 21:37] LABS: WHITE BLOOD COUNT 1.3 10^3/uL (4.0-10.0)
[2019-04-08] MEDS ORDERED: ISOVUE-370 76% 100ML VIAL (Q9967) As Ordered ONE (21:46)
[2019-04-08 22:09] LABS: LYMPHOCYTES 19 % (16-44); MONOCYTES 1 % (0-5); NEUTROPHILS 78 % (28-66)
[2019-04-08 22:10] LABS: ANISOCYTOSIS 1+; HYPOCHROMASIA 1+; PLATELET ESTIMATE NORMAL (NORMAL)
[2019-04-08 22:13] LABS: POIKILOCYTOSIS 1+
--- NOTE | 2019-04-08 22:18 | REPVR ---
PROCEDURE INFORMATION: Exam: CT Head Without Contrast Exam date and time: 04/08/2019 9:51 PM Age: 74 years old Clinical indication: Altered mental status/memory loss; Additional info: AMS, gi bleed TECHNIQUE: Imaging protocol: Computed tomography of the head without contrast. Radiation optimization: All CT scans at this facility use at least one of these dose optimization techniques: automated exposure control; mA and/or kV adjustment per patient size (includes targeted exams where dose is matched to clinical indication); or iterative reconstruction. COMPARISON: CT Head without contrast 03/08/2019 4:18 PM FINDINGS: Brain: Mild decreased attenuation of the supratentorial white matter is likely secondary to chronic microvascular ischemia. No acute intracranial hemorrhage. Ventricles: Ventricular and subarachnoid spaces are age appropriate. Bones/joints: Unremarkable. No acute fracture. Sinuses: Visualized sinuses are unremarkable. No fluid levels. Mastoid air cells: Visualized mastoid air cells are well aerated. Soft tissues: Unremarkable. Vasculature: Intracranial vascular calcification. IMPRESSION: No acute intracranial abnormality. Electronically signed by: Anderson Galindo On 04/08/2019 22:17:38 PM
--- NOTE | 2019-04-08 22:21 | REPVR ---
PROCEDURE INFORMATION: Exam: CT Chest With Contrast Exam date and time: 04/08/2019 9:51 PM Age: 74 years old Clinical indication: Other: Gi bleed; Additional info: AMS, gi bleed TECHNIQUE: Imaging protocol: Computed tomography of the chest with intravenous contrast. Radiation optimization: All CT scans at this facility use at least one of these dose optimization techniques: automated exposure control; mA and/or kV adjustment per patient size (includes targeted exams where dose is matched to clinical indication); or iterative reconstruction. Contrast material: ISOVUE 370; Contrast volume: 100 ml; Contrast route: IV; COMPARISON: CR PORTABLE CHEST X-RAY 03/08/2019 3:54 PM FINDINGS: Lungs: Emphysema with upper lobe predominance. Left lower lobe compressive atelectasis. Mild atelectasis at the left upper lobe along the fissure. No consolidation to indicate pneumonia. Left upper lobe pulmonary nodule measures 7 mm. Pleural space: Small right and small to moderate left pleural effusions. Heart: Coronary artery calcification. Aorta: Calcification involving the thoracic aorta without aneurysm or dissection. Lymph nodes: Unremarkable. No enlarged lymph nodes. Bones/joints: There are degenerative changes involving the spine. Soft tissues: Anasarca. Other findings: Patient is cachectic. IMPRESSION: 1. Small right and small to moderate left pleural effusions. 2. 7 mm left upper lobe pulmonary nodule. For patients at low risk (minimal or absent history of smoking and of other known risk factors), recommend CT at 6-12 months, then consider CT at 18-24 months. For patients at high risk (history of smoking or of other known risk factors), recommend CT at 6-12 months, then CT at 18-24 months. (kentrell Church., Fleischner Society, 2017) Electronically signed by: Anderson Galindo On 04/08/2019 22:21:00 PM
--- NOTE | 2019-04-08 22:28 | REPVR ---
PROCEDURE INFORMATION: Exam: CT Abdomen And Pelvis With Contrast Exam date and time: 04/08/2019 9:51 PM Age: 74 years old Clinical indication: Other: Gi bleed; Additional info: AMS, gi bleed TECHNIQUE: Imaging protocol: Computed tomography of the abdomen and pelvis with intravenous contrast. Radiation optimization: All CT scans at this facility use at least one of these dose optimization techniques: automated exposure control; mA and/or kV adjustment per patient size (includes targeted exams where dose is matched to clinical indication); or iterative reconstruction. Contrast material: ISOVUE 370; Contrast volume: 100 ml; Contrast route: IV; COMPARISON: No relevant prior studies available. FINDINGS: Liver: Normal. No mass. Gallbladder and bile ducts: Normal. No calcified stones. No ductal dilation. Pancreas: Minimal prominence of the pancreatic duct. Spleen: Normal. No splenomegaly. Adrenals: Normal. No mass. Kidneys and ureters: There are innumerable bilateral renal cysts. Stomach and bowel: Extensive diverticulosis. No gross evidence of diverticulitis, however ever evaluation is suboptimal. Appendix: No evidence of appendicitis. Intraperitoneal space: Small volume of free intraperitoneal air. There is ascites with diffuse infiltration of the mesenteric fat planes. Vasculature: There are vascular calcifications. Aneurysm of the infrarenal abdominal aorta measures up to 3.1 centimetres. Lymph nodes: Unremarkable. No enlarged lymph nodes. Bladder: Unremarkable as visualized. Reproductive: Unremarkable as visualized. Bones/joints: There are degenerative changes involving the spine. Soft tissues: Anasarca. Anasarca. Other findings: Patient is cachectic. IMPRESSION: 1. There is a small amount of free intraperitoneal air, origin uncertain. Finding raises concern for perforated viscus. 2. Ascites with anasarca and diffuse infiltration of the mesenteric fat planes which markedly limits evaluation for superimposed acute inflammatory change. 3. Extensive diverticulosis, poor evaluation for diverticulitis as above. Electronically signed by: Anderson Galindo On 04/08/2019 22:28:24 PM
[2019-04-08] MEDS ORDERED: PIPERACILLIN/TAZOBACTAM SOD 3.375 GM in D5W MINI-BAG PLUS 50 ML IV ONE (22:45)
[2019-04-08] MEDS ORDERED: DEXTROSE 50% 50 ML SYRINGE As Ordered ONE ×2 (23:01→23:02)
[2019-04-08] MEDS ORDERED: DEXTROSE 50% 50 ML SYRINGE IV STA (23:01)
[2019-04-08] MEDS ORDERED: NS 1,650 ML in IV 1 EA IV ONE (23:15)
[2019-04-08] MEDS ORDERED: ONDANSETRON 4MG/2ML VIAL (J2405) As Ordered ONE (23:53)
[2019-04-08] MEDS ORDERED: dexameTHASONE 4 MG/ML 1ML VIAL (J1100) As Ordered ONE (23:53)
[2019-04-08] MEDS ORDERED: propofoL 200 MG/20 ML VIAL As Ordered ONE (23:53)
[2019-04-08] MEDS ORDERED: ROCURONIUM BROMIDE 50 MG/5 ML VIAL As Ordered ONE (23:53)
[2019-04-08] MEDS ORDERED: fentaNYL 100 MCG/2 ML INJECTION (J3010) As Ordered ONE (23:53)
[2019-04-08] MEDS ORDERED: LIDOCAINE 2% INJ 100 MG/5 ML SDV (FOR ANES.) As Ordered ONE (23:53)
[2019-04-08] MEDS ORDERED: SUCCINYLCHOLINE 100 MG/5 ML SYRINGE (J0330) As Ordered ONE (23:54)
[2019-04-09] VITALS (100 sets, daily range): BP systolic 67–145; BP diastolic 36–72; O2SAT 99–100
[2019-04-09] MEDS ORDERED: MIDAZOLAM INJ 2 MG/2 ML VIAL (J2250) As Ordered ONE ×4 (00:10→03:24)
[2019-04-09] MEDS ORDERED: LEVALBUTEROL 1.25 MG/0.5 ML CONCENTRATE NEB INH PRN (00:45)
[2019-04-09] MEDS ORDERED: DEXTROSE 50% 50 ML VIAL As Ordered ONE (00:48)
[2019-04-09] MEDS ORDERED: ePHEDrine SULFATE 25 MG/5 ML(5MG/ML) SYRINGE As Ordered ONE ×2 (00:57→00:59)
[2019-04-09 01:10] LABS: BLOOD UREA NITROGEN 41 MG/DL (7-18); CALCIUM LEVEL 8.2 MG/DL (8.8-10.2); CARBON DIOXIDE LEVEL 37 MEQ/L (21-32); CHLORIDE LEVEL 104 MEQ/L (98-107); CREATININE FOR GFR 0.71 MG/DL (0.70-1.30); GLOMERULAR FILTRATION RATE > 60.0 (>42); GLUCOSE, FASTING 43 MG/DL (70-100); POTASSIUM SERUM 5.2 MEQ/L (3.5-5.1); SODIUM LEVEL 142 MEQ/L (136-145)
[2019-04-09] MEDS ORDERED: CALCIUM CHLORIDE 10% 1 GM/10 ML SYR As Ordered ONE (01:15)
[2019-04-09] MEDS ORDERED: ACETAMINOPHEN 1000MG 100ML IV BTL (OFIRMEV) (J0131 PER 10MG) As Ordered ONE (01:19)
[2019-04-09] MEDS ORDERED: SUGAMMADEX SODIUM 500 MG/5 ML VIAL (BRIDION) As Ordered ONE (01:22)
[2019-04-09] MEDS ORDERED: MORPHINE 2 MG/ML 1ML VIAL (J2270) IV PRN (02:00)
[2019-04-09] MEDS ORDERED: SUCRALFATE 1 GM TAB PO ONE (02:00)
[2019-04-09] MEDS ORDERED: FLUCONAZOLE 200 MG in IV 1 EA IV ONE (02:00)
[2019-04-09] MEDS ORDERED: KETOROLAC 30 MG/ML VIAL (J1885) IV PRN (02:00)
[2019-04-09] MEDS ORDERED: ALBUTEROL 90 MCG/ACT 8GM HFA INHALER INH PRN (02:00)
[2019-04-09] MEDS ORDERED: NORCO, ANEXSIA 5/325MG TABLET (HYDROcodone/ACETAMINOPHEN) PO PRN (02:00)
[2019-04-09] MEDS ORDERED: ONDANSETRON 4MG/2ML VIAL (J2405) IV PRN (02:00)
[2019-04-09] MEDS: LR 1,000 ML IV SCH ×2 (02:08→11:27)
[2019-04-09] MEDS ORDERED: ALBUTEROL SULFATE 2.5 MG/0.5 ML INH NEB SOLN INH ONE (02:15)
[2019-04-09] MEDS: MIDAZOLAM INJ 2 MG/2 ML VIAL (J2250) IV PRN ×5 (02:15→03:27)
[2019-04-09 02:56] LABS: ABG BASE EXCESS 4.9 (-2.0-2.0); ABG FIO2 50; ABG HCO3 31.6 MEQ/L (22.0-26.0); ABG MODE OF VENT PRVC; ABG O2 SATURATION 98.8 % (95.0-99.0); ABG PARTIAL PRESSURE CO2 58.7 mmHg (35.0-45.0); ABG PATIENT RESP RATE 16 /MIN; ABG PEEP 5; ABG STANDARD HCO3 28.9 MEQ/L (22.0-26.0); ABG TIDAL VOLUME 420 cc; ABG TOTAL CO2 33.4 MEQ/L (23.0-31.0); ABG pH (ARTERIAL) 7.349 UNITS (7.350-7.450)
[2019-04-09] MEDS ORDERED: fentaNYL 100 MCG/2 ML INJECTION (J3010) As Ordered ONE (02:58)
[2019-04-09] MEDS: fentaNYL 100 MCG/2 ML INJECTION (J3010) IV PRN ×2 (03:01→03:24)
--- NOTE | 2019-04-09 03:31 | REPVR ---
PROCEDURE INFORMATION: Exam: XR Chest, 1 View Exam date and time: 04/09/2019 3:13 AM Age: 74 years old Clinical indication: Device placement; Other: Intubated PT TECHNIQUE: Imaging protocol: XR of the chest Views: 1 view. COMPARISON: CR PORTABLE CHEST X-RAY 03/08/2019 3:54 PM FINDINGS: Tubes, catheters and devices: Endotracheal tube terminates 5 cm above the lovely. Esophagogastric tube terminates within the proximal stomach near the GE junction may be advanced. Lungs: There are chronic interstitial markings. No consolidation. Pleural space: Small left-sided pleural effusion. Heart/Mediastinum: Cardiac silhouette is upper limits of normal for portable technique. Vasculature: Aortic calcification. Bones/joints: Unremarkable. IMPRESSION: 1. Endotracheal tube terminates 5 cm above the lovely. 2. Esophagogastric tube terminates within the proximal stomach near the GE junction and may be advanced. Electronically signed by: Anderson Galindo On 04/09/2019 03:30:45 AM
[2019-04-09] MEDS ORDERED: fentaNYL 100 MCG/2 ML INJECTION (J3010) IV PRN (03:45)
[2019-04-09] MEDS ORDERED: MIDAZOLAM INJ 2 MG/2 ML VIAL (J2250) IV PRN (03:45)
[2019-04-09] MEDS: dexmedeTOMidine 200 MCG in IV 1 EA IV SCH ×2 (04:21→21:50)
[2019-04-09] MEDS: PIPERACILLIN/TAZOBACTAM SOD 3.375 GM in D5W MINI-BAG PLUS 50 ML IV SCH ×3 (04:23→18:11)
[2019-04-09] MEDS: LEVALBUTEROL 1.25 MG/0.5 ML CONCENTRATE NEB INH SCH ×5 (04:30→20:04)
[2019-04-09 05:17] LABS: HEMATOCRIT 30.6 % (42.0-52.0); HEMOGLOBIN 9.4 g/dl (13.5-17.5); MEAN CORPUSCULAR HEMOGLOBIN 28.7 pg (27.0-33.0); MEAN CORPUSCULAR HGB CONC 30.7 g/dl (32.0-36.5); MEAN CORPUSCULAR VOLUME 93.6 fl (80.0-96.0); PLATELET COUNT, AUTOMATED 112 10^3/uL (150-450); RED BLOOD COUNT 3.27 10^6/uL (4.30-6.10); WHITE BLOOD COUNT 5.9 10^3/uL (4.0-10.0)
[2019-04-09 05:38] LABS: ALBUMIN 2.1 GM/DL (3.2-5.2); ALT/SGPT 75 U/L (12-78); BILIRUBIN,TOTAL 0.4 MG/DL (0.2-1.0); BLOOD UREA NITROGEN 37 MG/DL (7-18); CALCIUM LEVEL 7.8 MG/DL (8.8-10.2); CARBON DIOXIDE LEVEL 35 MEQ/L (21-32); CHLORIDE LEVEL 109 MEQ/L (98-107); CREATININE FOR GFR 0.61 MG/DL (0.70-1.30); GLOMERULAR FILTRATION RATE > 60.0 (>42); GLUCOSE, FASTING 71 MG/DL (70-100); SODIUM LEVEL 145 MEQ/L (136-145); TOTAL PROTEIN 4.5 GM/DL (6.4-8.2)
[2019-04-09 05:42] LABS: ANISOCYTOSIS 1+; LYMPHOCYTES 2 % (16-44); METAMYELOCYTES 7 % (0-0); NEUTROPHILS 75 % (28-66); PLATELET ESTIMATE DECREASED (NORMAL)
[2019-04-09 05:43] LABS: HYPOCHROMASIA 1+
[2019-04-09 05:50] LABS: ABG BASE EXCESS 7.5 (-2.0-2.0); ABG HCO3 33.7 MEQ/L (22.0-26.0); ABG O2 SATURATION 96.9 % (95.0-99.0); ABG PARTIAL PRESSURE CO2 56.8 mmHg (35.0-45.0); ABG PARTIAL PRESSURE O2 88.1 mmHg (75.0-100.0); ABG STANDARD HCO3 31.3 MEQ/L (22.0-26.0); ABG TOTAL CO2 35.4 MEQ/L (23.0-31.0); ABG pH (ARTERIAL) 7.391 UNITS (7.350-7.450)
[2019-04-09] MEDS ORDERED: IPRATROPIUM 0.5MG/ALBUTEROL 2.5MG INH SOL UD 3ML (DUONEB)(J7620) NEB PRN (06:00)
[2019-04-09] MEDS ORDERED: DEXTROSE 50% 50 ML SYRINGE IV STA ×2 (06:17→17:59)
[2019-04-09] MEDS ORDERED: GLUCAGON FOR INJ 1 MG VIAL (J1610) SC PRN (06:30)
[2019-04-09] MEDS ORDERED: DEXTROSE 50% 50 ML SYRINGE IV PRN (06:30)
[2019-04-09] MEDS ORDERED: GLUCOSE 4 GM CHEW TABLET PO PRN (06:30)
[2019-04-09] MEDS: SUCRALFATE 1 GM TAB PO SCH ×4 (07:30→21:51)
[2019-04-09] MEDS: TIOTROPIUM INHALER/CAPSULE (SPIRIVA) INH SCH (07:45)
[2019-04-09] MEDS ORDERED: LR 1,000 ML IV ONE ×2 (08:00→12:15)
--- NOTE | 2019-04-09 08:44 | CR ---
DATE OF CONSULTATION: 04/09/2019 REFERRING PHYSICIAN: Dr. Nader Gonzales REASON FOR CONSULTATION: Medical management. HISTORY OF PRESENT ILLNESS: This is a 74-year-old male who was in his usual state of health until today when he had intractable abdominal pain, nausea and vomiting six times. According to the patient, he has been having on and off abdominal discomfort for the last 2 weeks but it has usually abated, today was much more persistent when he woke up this morning, unable to keep his food down with a low grade temperature and chills at home. The patient describes the pain as diffuse across the abdomen with worsening abdominal distention. Despite this, he did have a bowel movement this morning with a trace amount of blood and he did have a little bit of blood tinged vomitus this morning. Despite taking Tylenol, the patient has had no improvement, prompting him to come to the emergency room. In the emergency room, he was found to be hypothermic at 96, leukopenic with a white count of 1.3, lactic acid was normal at 1.6, CT of the abdomen and pelvis however showed perforated viscus with a small amount of free intraperitoneal air, ascites, and anasarca. Chest CT shows small to moderate left pleural effusion, 7 mm left upper lobe pulmonary nodule. The patient was emergently brought to the operating room for exploratory laparotomy. He was kept nothing by mouth, typed and screened, placed on intravenous fluids. PAST MEDICAL HISTORY: 1. Chronic obstructive pulmonary disease (COPD) on 2 liters of oxygen, still smoking. 2. Hypertension. 3. Diastolic heart failure. 4. Schizophrenia. 5. Symptomatic anemia. 6. Gastrointestinal bleed. 7. Hypertension. 8. Hyperlipidemia. 9. Depression. PAST SURGICAL HISTORY: 1. Left shoulder surgery. 2. Right knee surgery. 3. Left rib fracture. SOCIAL HISTORY: The patient lives alone, . Still smoking cigarettes. Walks independently without a cane or walker. Healthcare proxy is his daughter. ALLERGIES: No known drug allergies. HOME MEDICATIONS: - albuterol two puffs inhaled every 4 hours - atorvastatin 20 mg at night - Lisinopril 10 mg daily - metoprolol 25 mg at night - olanzapine 15 mg at night - Protonix 40 mg daily - sertraline 50 mg daily - Spiriva one inhalation daily - torsemide 10 mg daily REVIEW OF SYSTEMS: As per history of present illness. 12-point system otherwise negative. FAMILY HISTORY: Noncontributory due to age. PHYSICAL EXAMINATION: VITAL SIGNS: Temperature 96.6, pulse 57, respiratory rate 20, blood pressure 78/50, pulse oximetry 85% on room air. ASSESSMENT AND PLAN: This is a 74-year-old man with a history of diastolic congestive heart failure (CHF), active smoker, chronic obstructive pulmonary disease (COPD) on home oxygen 2 liters of oxygen, chronic hypoxic respiratory failure, actively smoking, severe pulmonary hypertension, severe LVH due to hypertensive heart disease and hypertrophic cardiomyopathy, symptomatic anemia due to chronic gastrointestinal bleed, paroxysmal atrial flutter, schizophrenia, hypertension, hyperlipidemia, who presents with a 2 week history of abdominal pain with acute onset of abdominal distention, six episodes of emesis with perforated viscus. IMPRESSION: 1. Preoperative medical clearance. The patient emergently was brought into the operating room due to perforated viscus. He is high risk in light of the heart failure and severe pulmonary hypertension, but family is aware of overall poor prognosis if surgical intervention is not pursued. 2. Perforated viscus. Dr. Gonzales has admitted the patient into his primary service. He has been given intravenous antibiotics, kept nothing by mouth with intravenous fluids and currently en route to the operating room for exploratory laparotomy regarding perforated viscus. 3. History of diastolic congestive heart failure (CHF), appears to be compensated at this time. The patient is to be managed in the progressive care unit (PCU) postoperatively for strict input and output, daily weights. He will most likely become fluid overloaded after the stressor surgery and intravenous fluids given. We will monitor in progressive care unit (PCU), if not intensive care unit (ICU) depending on outcome. 4. Severe pulmonary hypertension complicating his care. If needed, he may need cardiovascular specialist consultation for help and management if he continues to have respiratory distress postoperatively. 5. History of chronic obstructive pulmonary disease (COPD), currently compensated with no wheezing on examination. Continue with inhaled Spiriva, nebulizer treatments with Xopenex every 4 hours postoperatively and every 2 hours as needed. 6. Chronic hypoxic respiratory failure secondary to chronic obstructive pulmonary disease (COPD) and severe pulmonary hypertension. Keep saturations above 88% to 92%. 7. History of schizophrenia. Due to perforated viscus, all psychiatric medications will need to be held temporarily. 8. History of paroxysmal atrial flutter. Continue on telemetry monitoring postoperatively as the patient may develop decompensated heart failure and atrial flutter with rapid ventricular response. 9. History of symptomatic anemia due to chronic gastrointestinal blood loss. The patient has been typed, crossed and transfuse for a hemoglobin less than 8. 10. Hypertrophic cardiomyopathy. The patient will be monitored in telemetry. 11. Deep vein thrombosis (DVT) prophylaxis with compression stockings. The patient is going to the operating room at this time. CODE STATUS: Currently a FULL CODE. MTDD
[2019-04-09] MEDS: lisinopriL 10 MG TAB PO SCH (09:00)
[2019-04-09] MEDS: TORSEMIDE 10 MG TABLET PO SCH (09:00)
[2019-04-09] MEDS ORDERED: LORazepam 2 MG TAB PO PRN (10:30)
[2019-04-09] MEDS: PANTOPRAZOLE 40MG INJ (PROTONIX) (C9113) IV SCH ×2 (10:32→21:48)
[2019-04-09] MEDS: NICOTINE 14 MG/24 HR TRANSDERMAL TD PRN (10:32)
[2019-04-09] MEDS: ENOXAPARIN 40 MG/0.4 ML SYRINGE (J1650) SC SCH (10:32)
[2019-04-09] MEDS: SERTRALINE HCL 50 MG TAB PO SCH (10:33)
[2019-04-09] MEDS: SENOKOT S TAB PO SCH ×2 (10:33→21:49)
--- NOTE | 2019-04-09 10:39 | IPNPDOC ---
Text Note Date of Service The patient was seen on 04/09/19. NOTE No acute events overnight. He is currently extubated, and much more alert and appropriate this am. Pain is much improved from pre-op. No complaints. VSSAF NAD abd - soft, slightly distended, tender to palpation appropriate, dressing c/d/i, drain in the LLQ is serosanguinous labs - below A) 74y/o male s/p ex lap with washout for suspected posterior duodenal perforation P) NGT NPO with sips and chips amb in [place] PPN ABX, diflucan lovenox carafate, PPI will plan on UGI Wednesday AM prior to starting a diet Ashu Gonzales DO VS,Fishbone, I+O VS, Fishbone, I+O Laboratory Tests 04/08/19 20:46 04/08/19 20:47 04/09/19 04:46 Vital Signs Date Time Temp Pulse Resp B/P (MAP) Pulse Ox O2 Delivery O2 Flow Rate FiO2 04/09/19 08:04 99.3 67 17 107/51 (70) 96 Ventilator 40 98/53 (68) I&O- Last 24 Hours up to 6 AM 04/09/19 06:00 Intake Total 2634 ml Output Total 915 ml Balance 1719 ml IVANNA GONZALES DO Apr 09, 2019 10:39
[2019-04-09] MEDS ORDERED: LR 500 ML IV ONE ×2 (11:30→16:30)
[2019-04-09] MEDS: MULTIVITAMINS/MINERALS THERAP 1 TAB PO SCH (12:45)
[2019-04-09] MEDS: THIAMINE 100 MG TAB PO SCH ×2 (12:45→21:48)
[2019-04-09] MEDS: FOLIC ACID 1 MG TAB PO SCH (12:45)
[2019-04-09 17:10] LABS: HEMATOCRIT 31.3 % (42.0-52.0); HEMOGLOBIN 9.3 g/dl (13.5-17.5); MEAN CORPUSCULAR HEMOGLOBIN 28.4 pg (27.0-33.0); MEAN CORPUSCULAR HGB CONC 29.7 g/dl (32.0-36.5); MEAN CORPUSCULAR VOLUME 95.4 fl (80.0-96.0); PLATELET COUNT, AUTOMATED 106 10^3/uL (150-450); RED BLOOD COUNT 3.28 10^6/uL (4.30-6.10); WHITE BLOOD COUNT 11.7 10^3/uL (4.0-10.0)
[2019-04-09] MEDS ORDERED: D5W/0.45% SODIUM CHLORIDE 1,000 ML IV SCH (18:00)
[2019-04-09] MEDS ORDERED: FAT EMULSION IV 20% 500 ML IV SCH (18:00)
[2019-04-09] MEDS: AMINO AC/ELECTROLYTE/DEX/CALC 1,000 ML IV SCH (18:35)
--- NOTE | 2019-04-09 20:53 | ECGEPIP ---
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
[2019-04-09] MEDS: OLANZapine 5 MG TAB PO SCH (21:48)
[2019-04-09] MEDS: ATORVASTATIN 20 MG TAB PO SCH (21:49)
[2019-04-09] MEDS: METOPROLOL SUCC *XL* 25MG TAB (TopROL *XL*) PO SCH (21:50)
[2019-04-09] MEDS: FLUCONAZOLE 200 MG in IV 1 EA IV SCH ×2 (21:50→22:00)
[2019-04-09] MEDS ORDERED: FLUCONAZOLE 100 MG in IV 1 EA IV SCH (22:00)
--- NOTE | 2019-04-09 22:48 | CR.PDOC ---
General Date of Consultation: Apr 09, 2019 Referring Provider: IVANNA SALEH DO Consultation REASON FOR CONSULTATION/CHIEF COMPLAINT: Ventilator management. HISTORY OF PRESENT ILLNESS: Patient is a 74-year-old male who presented to the emergency department on 04/08/2019 with complaint of abdominal pain family is wi th patient at bedside and supplements the history. Patient with several week history of abdominal pain, decreased appetite, and several pound weight loss. Patient also with reported frequent loose stools which were murdered in color. Per daughter patient was also noted recently to have blood noted on his pillow in the area of his mouth concerning for hematemesis. Patient underwent a CT of the abdomen in the ER which was significant for small amount of free intraperitoneal air. Patient was taken to the OR emergently overnight for ex- lap. Findings discussed with surgeon. There was no bowel perforation identified. Given surgical and CT findings patient was suspected posterior duodenal perforation. After surgery patient was lethargic and unable to be weaned from the ventilator and therefore is transferred to the ICU. Critical care was consult said with ventilator management. Of note patient has no history of diabetes however in the emergency department was found to be hypoglycemic. This morning, patient awake and alert following commands on the ventilator. Patient was started on CPAP trial and decision was made to extubate. Patient does have a history of chronic respiratory failure requiring oxygen at home due to severe COPD. Patient was extubated to nasal cannula. He reports he is feeling significantly better than prior to arrival in the emergency department. At this time he denies headache dizziness shortness of breath or cough. He states his abdominal pain is well-controlled and he has no complaints of nausea. ALLERGIES: Please see below. HOME MEDICATIONS: Please see below. PAST MEDICAL HISTORY: 1. Chronic respiratory failure due to COPD on 2 L of O2 at home continuously 2. Hypertension 3. Diastolic heart failure 4. Hyperlipidemia. PAST SURGICAL HISTORY: 1. Left shoulder surgery 2. Right knee surgery FAMILY HISTORY: Patient unable to contribute to family history. Daughter and granddaughter at bedside report they are well without medical conditions SOCIAL HISTORY: Patient lives at home alone, however daughter (Shira) visits the house daily and provides food. Patient reportedly still driving. He is a daily drinker however unable to quantify his normal of alcohol intake. He states he takes a "drab every once in a while". Granddaughter reports that he drinks daily and was recently found by police intoxicated. Patient is a heavy smoker smoking daily. He is currently requesting a nicotine patch. REVIEW OF SYSTEMS: CONSTITUTIONAL: Denies fevers,chills. HEENT: Denies headache, dizziness, changes in vision, runny nose. Patient does report a mild sore throat status post extubation CARDIOVASCULAR: Denies chest pain, palpitations. RESPIRATORY: Denies shortness of breath, cough. GENITOURINARY: Diaz catheter in place. MUSCULOSKELETAL: Denies generalized weakness. GASTROINTESTINAL: Reports improvement in abdominal pain. Denies nausea, vomiting. PHYSICAL EXAMINATION: VITAL SIGNS: Please see below. GENERAL: Alert and oriented, in no acute distress. Patient appears cachectic. HENT: Normocephalic, atraumatic, temporal muscle wasting noted EYES: Pupils equal round and reactive to light, no scleral icterus CARDIOVASCULAR: Regular rate and rhythm, no lower extremity edema RESPIRATORY: Decreased air movement throughout, however no wheezing noted ABDOMINAL: Abdominal bandages in place with minimal strikethrough noted, RAJESH drain on right side of abdomen with serosanguineous fluid output, no bowel sounds heard, abdomen is soft and nondistended EXTREMITIES: Normal range of motion and strength of all 4 extremities NEUROLOGICAL: Alert and oriented 3 without focal deficits noted SKIN: Warm and dry LABORATORY DATA: Please see below. ASSESSMENT/PLAN: #Acute on chronic hypoxic respiratory failure - Likely secondary to underlying severe COPD - Unable to extubate as expected following surgery - Patient extubated this morning to nasal cannula - We'll monitor closely in the ICU for the next 24 hours - Titrate O2 to keep SPO2 greater than 90% - Patient chronically on 2 L O2 via nasal cannula at home #Suspected posterior duodenal perforation - Status post exploratory laparoscopy with washout on 04/09/2019 -Nothing by mouth with sips and ice chips - Continue NG tube to low intermittent suction -Protonix IV twice a day, Carafate - Incentive spirometer, out of bed, encourage ambulation - Given underlining malnutrition will start PPN and transition to TPN following central line placement - We'll plan for upper GI on Wednesday morning prior to initiation of an oral diet - Gen. surgery following, discussed at length with surgeon #Sepsis - Likely secondary to suspected duodenal perforation - Await blood cultures, will also send fungal cultures - We'll send cultures of RAJESH fluid including fungal studies - We'll start broad-spectrum antibiotics and antifungals with Zosyn. We'll change Diflucan to micafungin in light of initiation of TPN #Clinical dehydration with hypotension -Patient with poor by mouth intake for several weeks and appears clinically dry -We'll give additional IV fluid bolus to rehydrate - Anticipate improvement with fluid hydration however if patient is adequately rehydrated and remains hypotensive we'll consider pressor therapy for suspected septic shock #Hypoglycemia - No known history of diabetes, may be related to poor by mouth intake but more likely related to underlying infection - We will check glucose every 2-4 hours - Dextrose 50% when necessary -Expected hypoglycemic episodes to improve with initiation of PPN however if hypoglycemia continues we'll start [id number] #COPD without exacerbation - DuoNeb every 6 #Diastolic heart failure - Grade 1 diastolic heart failure noted on echocardiogram in February 2019 - This particular echo study was done in the inpatient setting. Will likely need repeat echocardiogram as outpatient with an acute illness is over as diastolic heart dysfunction to be inaccurately assess during the acutely ill state - We'll monitor closely for signs of fluid overload #Pulmonary nodule - 7 mm left upper lung nodule incidentally noted on CT of the chest, given significant smoking history will require outpatient follow-up and repeat CT scan in 6-12 months #Alcohol use - [facility] protocol - Thiamine daily, folate - Will encourage alcohol cessation prior to discharge #Tobacco use - Nicotine patch #Severe protein calorie malnutrition - Family reporting significant weight loss over the last month or which brand- new clothes no longer fit, patient with poor by mouth intake, cachectic appearing with notable temporal wasting - Getting malnutrition at time of admission and suspected prolonged nothing by mouth status, we will initiate PPN. Plan for PICC line placement tomorrow with TPN to start tomorrow - If able will perform an upper GI on 04/11/2019 to evaluate for potential by mouth intake at that point Diet: Nothing by mouth, platelets are PPN DVT/GI prophylaxis. Lovenox subcutaneous to start in the morning, Protonix twice a day for suspected duodenal perforation L/T/D: Left Radial Arterial line (anticipate discontinuation today)Joe (04/09/2019) Drips: D5/0.45% @50cc/hr until start of PPN Code Status: Full Code. Daughter (Shira) to be surrogate-decision maker. Verfied with patient this morning following extubation. Dispo: Will monitor in the ICU overnight given recent extubation, hypotension, and potential for worsening sepsis Critical Care Time: 40 mintues. Time spent at bedside or immediately available weaning ventilator settings and monitor respiratory status following extubation. [place] Vital Signs/I&O Vital Signs Date Time Temp Pulse Resp B/P (MAP) Pulse Ox O2 Delivery O2 Flow Rate FiO2 04/09/19 21:50 62 119/57 04/09/19 18:00 21 90 Nasal Cannula 2.0 04/09/19 16:00 97.1 04/09/19 09:00 40 I&O- Last 24 Hours up to 6 AM 04/09/19 06:00 Intake Total 2634 ml Output Total 915 ml Balance 1719 ml Laboratory Data Labs 24H Laboratory Tests 2 04/08/19 23:00: Bedside Glucose (Misc Panel) 23*L 04/08/19 23:31: Bedside Glucose (Misc Panel) 104 04/09/19 00:41: POC pH (Misc Panel) 7.374, POC Base Excess (Misc Panel) 7.0H, POC Saturated Percent O2 (Misc) 100H, POC pO2 (Misc Panel) 218.0H, POC pCO2 (Misc Panel) 54.8H, POC HCO3 (Misc Panel) 32.0H, POC Glucose (Misc Panel) 66L, POC Sodium (Misc Panel) 140, POC Potassium (Misc Panel) 4.3, POC Total CO2 (Misc Panel) 34.0H, POC Ionized Calcium (Misc Panel) 4.4L, POC Hemoglobin (Calculated)(Misc) 8.8L, POC Hematocrit (Misc Panel) 26.0L 04/09/19 01:29: POC pH (Misc Panel) 7.366, POC Base Excess (Misc Panel) 7.0H, POC Saturated Percent O2 (Misc) 99H, POC pO2 (Misc Panel) 174.0H, POC pCO2 (Misc Panel) 56.5H, POC HCO3 (Misc Panel) 32.4H, POC Glucose (Misc Panel) 170H, POC Sodium (Misc Panel) 140, POC Potassium (Misc Panel) 3.6, POC Total CO2 (Misc Panel) 34.0H, POC Ionized Calcium (Misc Panel) 6.0H, POC Hemoglobin (Calculated)(Misc) 8.2L, POC Hematocrit (Misc Panel) 24.0L 04/09/19 02:26: Bedside Glucose (Misc Panel) 91 04/09/19 02:40: Blood Gas Bicarbonate Standard 28.9H, Arterial Blood pH 7.349L, Arterial Blood Partial Pressure CO2 58.7H, Arterial Blood Partial Pressure O2 141.0H, Arterial Blood Total CO2 33.4H, Arterial Blood HCO3 31.6H, Arterial Blood Base Excess 4.9H, Arterial Blood Oxygen Saturation 98.8, Arterial Blood Gas Vent Mode PRVC, Arterial Blood Gas Tidal Volume 420, Arterial Blood Gas Respiration Rate 16, Arterial Blood Gas PEEP 5, Arterial Blood Gas FiO2 50, Oxygen Delivery Device MECHAN. VENT, Lactic Acid Level 1.3 04/09/19 02:42: Bedside Glucose (Misc Panel) 95 04/09/19 04:46: Neutrophils (%) (Auto) , Lymphocytes # (Auto) , Nucleated Red Blood Cells % (auto) 0.3H, Neutrophils 75H, Band Neutrophils 16H, Lymphocytes (Manual) 2L, Metamyelocytes 7H, Hypochromasia 1+, Anisocytosis 1+, Platelet Estimate DECREASED, Anion Gap 1L, Glomerular Filtration Rate > 60.0, Calcium Level 7.8L, Total Bilirubin 0.4, Aspartate Amino Transf (AST/SGOT) 82H, Alanine Aminotransferase (ALT/SGPT) 75, Alkaline Phosphatase 93, Total Protein 4.5L, Albumin 2.1L, Albumin/Globulin Ratio 0.88L 04/09/19 05:35: Blood Gas Bicarbonate Standard 31.3H, Arterial Blood pH 7.391, Arterial Blood Partial Pressure CO2 56.8H, Arterial Blood Partial Pressure O2 88.1, Arterial Blood Total CO2 35.4H, Arterial Blood HCO3 33.7H, Arterial Blood Base Excess 7.5H, Arterial Blood Oxygen Saturation 96.9 04/09/19 06:14: Bedside Glucose (Misc Panel) 68L 04/09/19 06:44: Bedside Glucose (Misc Panel) 124H 04/09/19 12:00: Bedside Glucose (Misc Panel) 69L 04/09/19 13:22: Lactic Acid Level 1.1 04/09/19 15:19: Bedside Glucose (Misc Panel) 64L 04/09/19 16:57: Nucleated Red Blood Cells % (auto) 0.2H 04/09/19 17:57: Bedside Glucose (Misc Panel) 21*L 04/09/19 17:58: Bedside Glucose (Misc Panel) 25*L 04/09/19 18:16: 04/09/19 18:39: Bedside Glucose (Misc Panel) 102 04/09/19 21:56: Bedside Glucose (Misc Panel) 88 CBC/BMP Laboratory Tests 04/09/19 04:46 04/09/19 16:57 Microbiology Microbiology 04/09/19 Fungal Smear, Received Pending 04/09/19 Fungal Culture, Received Pending 04/09/19 Gram Stain - Final, Resulted 04/09/19 Body Fluid Culture, Resulted Pending 04/09/19 Blood Culture, Received Pending 04/09/19 Blood Culture, Received Pending Allergies Coded Allergies: No Known Allergies (Unverified , 10/31/18) Home Medications Scheduled Atorvastatin Calcium (Atorvastatin Calcium) 20 Mg Tab, 20 MG PO QHS, (Reported) Fluticasone Propion/Salmeterol (Fluticasone-Salmeterol 250-50) 1 Each Blst.w.dev, 1 PUFF PO BID, (Reported) Lisinopril (Lisinopril) 20 Mg Tablet, 10 MG PO DAILY, (Reported) Metoprolol Succinate (Metoprolol Succinate) 25 Mg Tab.er.24h, 25 MG PO QHS, (Reported) Olanzapine (Olanzapine) 15 Mg Tablet, 15 MG PO QHS, (Reported) Pantoprazole Sodium (Pantoprazole Sodium) 40 Mg Tablet.dr, 40 MG PO DAILY, (Reported) Sertraline Hcl (Sertraline HCl) 50 Mg Tablet, 50 MG PO DAILY, (Reported) Tiotropium [place] (Spiriva) 18 Mcg Cap.w.dev, 1 CAP INH DAILY, (Reported) Torsemide (Torsemide) 10 Mg Tablet, 10 MG PO DAILY, (Reported) Scheduled PRN Albuterol Sulfate (Ventolin Hfa) 18 Gm Hfa.aer.ad, 2 PUFF INH Q4H PRN for wheezing, (Reported) SHANIKA WELLS DO Apr 09, 2019 22:09
[2019-04-09] MEDS: IPRATROPIUM 0.5MG/ALBUTEROL 2.5MG INH SOL UD 3ML (DUONEB)(J7620) NEB SCH (23:37)
[2019-04-10] VITALS (66 sets, daily range): BP systolic 66–142; BP diastolic 34–61
[2019-04-10] MEDS: MICAFUNGIN SODIUM 100 MG in D5W MINI-BAG PLUS 100 ML IV SCH ×2 (00:35→23:33)
[2019-04-10] MEDS: PIPERACILLIN/TAZOBACTAM SOD 3.375 GM in D5W MINI-BAG PLUS 50 ML IV SCH ×5 (00:35→23:33)
[2019-04-10 05:07] LABS: HEMATOCRIT 30.9 % (42.0-52.0); HEMOGLOBIN 9.2 g/dl (13.5-17.5); MEAN CORPUSCULAR HEMOGLOBIN 28.9 pg (27.0-33.0); MEAN CORPUSCULAR HGB CONC 29.8 g/dl (32.0-36.5); MEAN CORPUSCULAR VOLUME 97.2 fl (80.0-96.0); RED BLOOD COUNT 3.18 10^6/uL (4.30-6.10); WHITE BLOOD COUNT 10.2 10^3/uL (4.0-10.0)
[2019-04-10 05:26] LABS: ALBUMIN 1.7 GM/DL (3.2-5.2); ALT/SGPT 64 U/L (12-78); BILIRUBIN,DIRECT 0.1 MG/DL (0.0-0.2); BILIRUBIN,TOTAL 0.2 MG/DL (0.2-1.0); BLOOD UREA NITROGEN 39 MG/DL (7-18); CALCIUM LEVEL 7.5 MG/DL (8.8-10.2); CARBON DIOXIDE LEVEL 30 MEQ/L (21-32); CHLORIDE LEVEL 110 MEQ/L (98-107); GLOMERULAR FILTRATION RATE > 60.0 (>42); GLUCOSE, FASTING 111 MG/DL (70-100); MAGNESIUM LEVEL 1.9 MG/DL (1.8-2.4); POTASSIUM SERUM 5.3 MEQ/L (3.5-5.1); SODIUM LEVEL 141 MEQ/L (136-145); TOTAL PROTEIN 4.7 GM/DL (6.4-8.2)
[2019-04-10 05:32] LABS: PLATELET COUNT, AUTOMATED 83 10^3/uL (150-450)
[2019-04-10 05:35] LABS: LYMPHOCYTES 4 % (16-44); MONOCYTES 6 % (0-5); NEUTROPHILS 86 % (28-66)
[2019-04-10 05:36] LABS: HYPOCHROMASIA 1+; PLATELET ESTIMATE DECREASED (NORMAL)
[2019-04-10 05:37] LABS: ANISOCYTOSIS 1+; SCHISTOCYTES 1+
[2019-04-10 05:39] LABS: CRENATED RBC 1+; POIKILOCYTOSIS 1+
[2019-04-10 05:50] LABS: HEMOGLOBIN A1c 5.8 %
[2019-04-10] MEDS: SUCRALFATE 1 GM TAB PO SCH ×4 (07:30→21:23)
[2019-04-10] MEDS: IPRATROPIUM 0.5MG/ALBUTEROL 2.5MG INH SOL UD 3ML (DUONEB)(J7620) NEB SCH ×3 (07:41→19:35)
[2019-04-10] MEDS: TIOTROPIUM INHALER/CAPSULE (SPIRIVA) INH SCH (07:41)
[2019-04-10] MEDS: TORSEMIDE 10 MG TABLET PO SCH (08:18)
[2019-04-10] MEDS: FOLIC ACID 1 MG TAB PO SCH (08:35)
[2019-04-10] MEDS: THIAMINE 100 MG TAB PO SCH ×2 (08:37→21:23)
[2019-04-10] MEDS: SENOKOT S TAB PO SCH ×2 (08:37→21:24)
[2019-04-10] MEDS: lisinopriL 10 MG TAB PO SCH (08:37)
[2019-04-10] MEDS: MULTIVITAMINS/MINERALS THERAP 1 TAB PO SCH (08:37)
[2019-04-10] MEDS: PANTOPRAZOLE 40MG INJ (PROTONIX) (C9113) IV SCH ×2 (08:39→21:26)
[2019-04-10] MEDS: ENOXAPARIN 40 MG/0.4 ML SYRINGE (J1650) SC SCH (08:39)
[2019-04-10] MEDS: SERTRALINE HCL 50 MG TAB PO SCH (08:40)
[2019-04-10] MEDS ORDERED: LR 1,000 ML IV SCH (09:00)
[2019-04-10] MEDS: AMINO AC/ELECTROLYTE/DEX/CALC 1,000 ML IV SCH (09:40)
--- NOTE | 2019-04-10 16:20 | IPNPDOC ---
Date Seen The patient was seen on 04/10/19. Progress Note SUBJECTIVE: Patient seen and examined. Overnight patient with mild hypotension requiring fluid bolus with subsequent improvement in blood pressure. This morning patient reports he is feeling better and that he would "like a manual". He states that he is hungry. He denies chest pain, shortness breath, abdominal pain, nausea. This morning the patient medically appears better than the day prior. Patient sitting in bedside chair talking with family. With prompted attempts to utilize incentive spirometer, he is able to achieve a volume of 500. Brief Hospital Course: Patient is a 74-year-old male who presented to the emergency department on 04/08/2019 with complaint of abdominal pain. CT of the abdomen in the ER which was significant for small amount of free intraperitoneal air. Patient was taken to the OR emergently overnight for ex-lap, however, no bowel perforation identified. Given surgical and CT findings patient was suspected posterior duod enal perforation. After surgery patient was lethargic and unable to be weaned from the ventilator and therefore is transferred to the ICU. Patient was successfully extubated on the morning of 04/09/2019. Patient with hypoglycemia requiring supplementation with glucose and clinical dehydration requiring IV fluid. REVIEW OF SYSTEMS: CONSTITUTIONAL: Denies fevers,chills. HEENT: Denies headache, dizziness, changes in vision, runny nose, sore throat CARDIOVASCULAR: Denies chest pain, palpitations. RESPIRATORY: Denies shortness of breath, cough. GENITOURINARY: Diaz catheter in place. MUSCULOSKELETAL: Denies generalized weakness. GASTROINTESTINAL: Denies abdominal pain, nausea, vomiting. PHYSICAL EXAMINATION: VITAL SIGNS: Please see below. GENERAL: Alert and oriented, in no acute distress. Patient appears cachectic. HENT: Normocephalic, atraumatic, temporal muscle wasting noted, NG tube in place EYES: Pupils equal round and reactive to light, no scleral icterus CARDIOVASCULAR: Regular rate and rhythm, no lower extremity edema RESPIRATORY: Decreased air movement throughout, however no wheezing noted, non labored breathing on nasal cannula ABDOMINAL: Abdominal bandages, RAJESH drain on right side of abdomen with serosanguinous fluid output, no bowel sounds heard, abdomen is soft and nondistended EXTREMITIES: Normal range of motion and strength of all 4 extremities NEUROLOGICAL: Alert and oriented 3 without focal deficits noted SKIN: Warm and dry LABORATORY DATA: Please see below. ASSESSMENT/PLAN: #Acute on chronic hypoxic respiratory failure - Likely secondary to underlying severe COPD, acute process now resolved - Currently on Nasalc cannula - Patient chronically on 2 L O2 via nasal cannula at home - Titrate O2 to keep SPO2 greater than 90% #Suspected posterior duodenal perforation - Status post exploratory laparoscopy with washout on 04/09/2019, POD 1 - Continue antibiotics/antifungals with Zosyn (04/09-present) and Micafungin (04/09-present), await cultures - Nothing by mouth with sips and ice chips - Continue NG tube to low intermittent suction - Protonix IV twice a day, Carafate - Incentive spirometer, out of bed, encourage ambulation - Given underlining malnutrition will start PPN and transition to TPN following central line placement - We'll plan for upper GI on Wednesday morning prior to initiation of an oral diet - Gen. surgery following, discussed with surgeon #Sepsis - Likely secondary to suspected duodenal perforation - Await blood cultures,fungal cultures, cultures of RAJESH fluid including fungal studies - Continue antibiotics/antifungals #Clinical dehydration with hypotension -Improved Patient with poor by mouth intake for several weeks and appears clinically dry -We'll give additional IV fluid bolus to rehydrate - Anticipate improvement with fluid hydration however if patient is adequately rehydrated and remains hypotensive we'll consider pressor therapy for suspected septic shock #Thrombocytopenia - Likely 2/2 poor nutritional status which worsened with dilution effect in combination with critical illness - Monitor closely for bleeding - Hold Lovenox if plt < 50 #Hyperkalemia - Mild, will hold lisinopril and increase IVF hydrations - No EKG changes - Adjust PPN and TPN order to reflect potassium # Elevated LFTs - 2/2 EtOH use, improving #Hypoglycemia, improved - No known history of diabetes, may be related to poor by mouth intake but more likely related to underlying infection, A1C = 5.8% - We will check glucose every 2-4 hours - Dextrose 50% when necessary - Expected hypoglycemic episodes to improve with initiation of PPN however if hypoglycemia continues we'll start [id number] #COPD without exacerbation - DuoNeb every 6 #Diastolic heart failure - Grade 1 diastolic heart failure noted on echocardiogram in February 2019 - This particular echo study was done in the inpatient setting. Will likely need repeat echocardiogram as outpatient with an acute illness is over as diastolic heart dysfunction to be inaccurately assess during the acutely ill state - We'll monitor closely for signs of fluid overload #Pulmonary nodule - 7 mm left upper lung nodule incidentally noted on CT of the chest, given significant smoking history will require outpatient follow-up and repeat CT scan in 6-12 months #Alcohol use - [facility] protocol - Thiamine daily, folate - Will encourage alcohol cessation prior to discharge #Tobacco use - Nicotine patch #Severe protein calorie malnutrition - Family reporting significant weight loss over the last month or which brand- new clothes no longer fit, patient with poor by mouth intake, cachectic appearing with notable temporal wasting - Getting malnutrition at time of admission and suspected prolonged nothing by mouth status, we will initiate PPN. Plan for PICC line placement tomorrow with TPN to start tomorrow - If able will perform an upper GI on 04/11/2019 to evaluate for potential by mouth intake at that point Diet: Nothing by mouth except meds, platelets are PPN DVT/GI prophylaxis. Lovenox subcutaneous, Protonix twice a day for suspected duodenal perforation L/T/D: Left Radial Arterial line (04/09-04/10), Diaz (04/09-), NG tube (04/09), RAJESH drain (04/09) Drips: PPN, LR @50cc/hr Code Status: Full Code. Daughter (Shira) to be surrogate-decision maker. Verfied with patient this morning following extubation. Dispo: Will transfer to med/surg given resolution of hypotension. Primary care per general surgery, Dr. Gonzales. Further medical consultation per hospital service. Billin VS, I&O, 24H, [facility] Vital Signs/I&O Vital Signs Date Time Temp Pulse Resp B/P (MAP) Pulse Ox O2 Delivery O2 Flow Rate FiO2 04/10/19 04:00 98.2 54 18 99/43 100 04/10/19 04:00 2.0 04/09/19 18:00 Nasal Cannula 04/09/19 09:00 40 I&O- Last 24 Hours up to 6 AM 04/10/19 06:00 Intake Total 3240 ml Output Total 1990 ml Balance 1250 ml Laboratory Data 24H LABS Laboratory Tests 2 04/09/19 15:19: Bedside Glucose (Misc Panel) 64L 04/09/19 16:57: Nucleated Red Blood Cells % (auto) 0.2H 04/09/19 17:57: Bedside Glucose (Misc Panel) 21*L 04/09/19 17:58: Bedside Glucose (Misc Panel) 25*L 04/09/19 18:16: 04/09/19 18:39: Bedside Glucose (Misc Panel) 102 04/09/19 21:56: Bedside Glucose (Misc Panel) 88 04/09/19 23:27: Bedside Glucose (Misc Panel) 91 04/10/19 01:06: Bedside Glucose (Misc Panel) 135H 04/10/19 03:33: Bedside Glucose (Misc Panel) 104 04/10/19 04:43: Neutrophils (%) (Auto) , Nucleated Red Blood Cells % (auto) 0.4H, Neutrophils 86H, Band Neutrophils 4, Lymphocytes (Manual) 4L, Monocytes (Manual) 6H, Hypochromasia 1+, Poikilocytosis 1+, Anisocytosis 1+, Schistocytes 1+, Crenated Cell 1+, Platelet Estimate DECREASED, Immature Platelet Fraction 8.1, Anion Gap 1L, Glomerular Filtration Rate > 60.0, Estimated Mean Plasma Glucose 120H, Hemoglobin A1c 5.8, Calcium Level 7.5L, Magnesium Level 1.9, Total Bilirubin 0.2, Direct Bilirubin 0.1, Aspartate Amino Transf (AST/SGOT) 56H, Alanine Aminotransferase (ALT/SGPT) 64, Alkaline Phosphatase 72, Total Protein 4.7L, Albumin 1.7L, Albumin/Globulin Ratio 0.57L 04/10/19 08:55: Bedside Glucose (Misc Panel) 106 04/10/19 12:49: Bedside Glucose (Misc Panel) 90 CBC/BMP Laboratory Tests 04/09/19 16:57 04/10/19 04:43 Microbiology Microbiology 04/09/19 Fungal Smear, Received Pending 04/09/19 Fungal Culture, Received Pending 04/09/19 Gram Stain - Final, Resulted 04/09/19 Body Fluid Culture, Resulted Pending 04/09/19 Blood Culture - Preliminary, Resulted No growth after 24 hours . All specim... 04/09/19 Blood Culture - Preliminary, Resulted No growth after 24 hours . All specim... SHANIKA WELLS DO Apr 10, 2019 14:58
[2019-04-10] MEDS ORDERED: LIDOCAINE 1% MDV 20ML VIAL As Ordered ONE (16:32)
[2019-04-10] MEDS ORDERED: AMINO AC/ELECTROLYTE/DEX/CALC 2,000 ML IV SCH (18:00)
[2019-04-10] MEDS ORDERED: FAT EMULSION IV 20% 500 ML IV SCH (18:00)
--- NOTE | 2019-04-10 18:47 | REP ---
PICC line insertion under ultrasound guidance. The procedure was performed by ELVIRA Villalobos, under the direct supervision of Dr. Covington. The risks and benefits of the procedure were explained to the patient and informed consent was obtained both verbally and written. Directly prior to the start of the procedure, a formal timeout was completed in the procedure room. The right lateral brachial vein was localized using ultrasound guidance. The skin was prepped and draped in the sterile fashion. 1 ml 1% lidocaine 10 mg/ml was used as a local anesthetic. Using ultrasound guidance the right lateral brachial vein was cannulated and a 0.018 guidewire was inserted and advanced to the SVC using fluoroscopic guidance. The needle was removed and a 5.5 Bulgarian dilator and peel-away sheath was inserted over the guidewire. A 5.5 Bulgarian dual lumen catheter was cut to the length of 35 cm. The dilator was removed and the catheter was inserted over the guide wire with the tip ending in the SVC. The peel-away sheath was removed and the catheter was flushed with heparinized saline as per hospital protocol. The catheter was affixed to the skin and a sterile dressing was applied. The patient tolerated the procedure well and there were no immediate complications. 0.1 minutes of fluoroscopy time was utilized for this procedure. Some fluoroscopic images are performed with last image hold technology. These images require no additional radiation. Reviewed by ELVIRA Decker 04/10/2019 06:02 P Electronically Signed by Bonilla Covington MD 04/10/2019 06:38 P
--- NOTE | 2019-04-10 19:39 | IPNPDOC ---
Text Note Date of Service The patient was seen on 04/10/19. NOTE No acute events overnight. Pain is much improved. No complaints. He has been up ambulating. No flatus or BM. VSSAF NAD abd - soft, slightly distended, tender to palpation appropriate, dressing c/d/i, drain in the LLQ is serosanguinous labs - below A) 74y/o male s/p ex lap with washout for suspected posterior duodenal perforation P) NGT to LIS NPO with sips and chips amb in [place] PICC placement today and then TPN ABX, antifungal lovenox carafate, PPI will plan on UGI Wednesday AM prior to starting a diet Ashu Gonzales DO VS,Fishbone, I+O VS, Fishbone, I+O Laboratory Tests 04/10/19 04:43 Vital Signs Date Time Temp Pulse Resp B/P (MAP) Pulse Ox O2 Delivery O2 Flow Rate FiO2 04/10/19 18:35 2.0 04/10/19 18:05 98.1 56 18 110/56 (74) 95 Nasal Cannula 04/09/19 09:00 40 I&O- Last 24 Hours up to 6 AM 04/10/19 05:59 Intake Total 3794 ml Output Total 1990 ml Balance 1804 ml IVANNA GONZALES DO Apr 10, 2019 19:39
[2019-04-10] MEDS: OLANZapine 5 MG TAB PO SCH (21:24)
[2019-04-10] MEDS: ATORVASTATIN 20 MG TAB PO SCH (21:24)
[2019-04-10] MEDS: METOPROLOL SUCC *XL* 25MG TAB (TopROL *XL*) PO SCH (21:26)
--- NOTE | 2019-04-10 21:36 | RO ---
DATE OF PROCEDURE: 04/09/2019 PREOPERATIVE DIAGNOSIS: Perforated viscus. POSTOPERATIVE DIAGNOSIS: Negative with suspected perforated posterior duodenal ulcer. PROCEDURE: Exploratory laparotomy with abdominal washout and mobilization of the duodenum. SURGEON: Dr. Nader Gonzales SQUAD SERGEANT: None. ANESTHESIA: General. ESTIMATED BLOOD LOSS: 10 mL. COMPLICATIONS: None. INDICATION FOR PROCEDURE: The patient is a 74-year-old male who presented to the emergency room with abdominal pains, melenic stools for 2 weeks, hypotension, hypothermia, hypoglycemia and leukopenia. CT scan showed signs of extensive free fluid in the abdomen, as well as a couple small air bubbles in the upper abdomen. On exam, patient was peritoneal; that coupled with the CT scan findings, history and vitals, recommendation was to proceed with exploratory laparotomy. Risks and benefits of procedure not limited to but including bleeding, infection, hernia formation, damage to surrounding structures and need for further surgery were discussed in detail with the patient. Informed consent was obtained and procedure was planned. DESCRIPTION OF PROCEDURE: The patient was brought back to operating room three after sufficient sedation and the abdomen was sterilely prepped and draped with chlorhexidine. Next, a time-out was done to confirm proper patient, proper procedure. Following that, a midline incision was made superior to the umbilicus in the midline. The incision was carried down through the fascia and the abdomen was entered revealing thin, mildly cloudy fluid. The incision was then carried superiorly and then inferiorly. The abdomen was examined. The entire small bowel was run from the ligament of Treitz all the way to the terminal ileum, and no signs of any injury whatsoever. There was some edema of the small bowel proximally but no signs of any perforations, masses or ischemia. The large intestine was then run from the terminal ileum all the way to the rectum. There was extensive diverticulosis but no signs of any inflammation, thickening or perforations. The stomach was then examined anteriorly. No palpable masses. No signs of any leaks. The duodenum was then Kocherized. It felt slightly thickened posteriorly, but there was no erythema and no obvious perforations anywhere that could be identified. When this was done, the abdomen was completely irrigated with warm saline due to the hypothermia. Once that was done and the irrigation was removed, a 19-Filipino Yaron drain was placed down the pelvis, brought out in the left lower quadrant. The abdomen was then closed with a running looped PDS suture. Skin was closed with vidal. The abdomen was cleaned and dried, 4x4 and tape were applied, thus ending procedure.
[2019-04-11] VITALS (8 sets, daily range): BP systolic 90–130; BP diastolic 57–66
[2019-04-11] MEDS: IPRATROPIUM 0.5MG/ALBUTEROL 2.5MG INH SOL UD 3ML (DUONEB)(J7620) NEB SCH ×4 (00:56→19:36)
[2019-04-11] MEDS ORDERED: SODIUM CHLORIDE NASAL 0.65% SPRAY BTL (OCEAN) PRN (04:15)
[2019-04-11] MEDS: PIPERACILLIN/TAZOBACTAM SOD 3.375 GM in D5W MINI-BAG PLUS 50 ML IV SCH ×4 (05:39→22:25)
[2019-04-11] MEDS: SODIUM CHLORIDE 0.9% INJ 10 ML SYR IV SCH ×2 (05:41→18:18)
[2019-04-11 05:50] LABS: HEMATOCRIT 30.1 % (42.0-52.0); HEMOGLOBIN 9.1 g/dl (13.5-17.5); MEAN CORPUSCULAR HEMOGLOBIN 29.2 pg (27.0-33.0); MEAN CORPUSCULAR HGB CONC 30.2 g/dl (32.0-36.5); MEAN CORPUSCULAR VOLUME 96.5 fl (80.0-96.0); RED BLOOD COUNT 3.12 10^6/uL (4.30-6.10); WHITE BLOOD COUNT 11.2 10^3/uL (4.0-10.0)
[2019-04-11 06:00] LABS: PLATELET COUNT, AUTOMATED 71 10^3/uL (150-450)
[2019-04-11 06:07] LABS: ALBUMIN 1.8 GM/DL (3.2-5.2); BLOOD UREA NITROGEN 38 MG/DL (7-18); CALCIUM LEVEL 7.9 MG/DL (8.8-10.2); CARBON DIOXIDE LEVEL 34 MEQ/L (21-32); CHLORIDE LEVEL 105 MEQ/L (98-107); CHOLESTEROL LEVEL 68 MG/DL (<200); CHOLESTEROL RISK RATIO 1.416 (<5); CREATININE FOR GFR 0.82 MG/DL (0.70-1.30); GLOMERULAR FILTRATION RATE > 60.0 (>42); GLUCOSE, FASTING 155 MG/DL (70-100); HDL CHOLESTEROL 48 MG/DL (>40); LDL CHOLESTEROL 2 MG/DL (<100); NON-HDL-C 20 MG/DL; PHOSPHORUS LEVEL 3.6 MG/DL (2.5-4.9); POTASSIUM SERUM 4.7 MEQ/L (3.5-5.1); SODIUM LEVEL 141 MEQ/L (136-145); TRIGLYCERIDES LEVEL 92 MG/DL (<150)
--- NOTE | 2019-04-11 07:20 | REP ---
Portable chest, 06:41 a.m., single AP view with the patient upright: Comparison is 04/09/2019. The costophrenic angles are effaced suggestive of bilateral pleural effusions. Lung bullock otherwise clear. Cardiac size is upper normal. The quincy, mediastinum, skeletal structures are unremarkable. There is a nasogastric tube with the tip terminating in the upper abdomen. The endotracheal tube has been removed. Impression: Bilateral pleural effusions. Endotracheal tube has been removed. Nasogastric tube tip is in the upper abdomen. Electronically Signed by Nader Moe MD 04/11/2019 07:12 A
[2019-04-11] MEDS: SENOKOT S TAB PO SCH ×2 (07:56→22:26)
[2019-04-11] MEDS: MULTIVITAMINS/MINERALS THERAP 1 TAB PO SCH (07:56)
[2019-04-11] MEDS: SUCRALFATE 1 GM TAB PO SCH ×4 (07:56→22:26)
[2019-04-11] MEDS: lisinopriL 10 MG TAB PO SCH (07:57)
[2019-04-11] MEDS: SERTRALINE HCL 50 MG TAB PO SCH (07:57)
[2019-04-11] MEDS: THIAMINE 100 MG TAB PO SCH ×2 (07:57→22:26)
[2019-04-11] MEDS: ENOXAPARIN 40 MG/0.4 ML SYRINGE (J1650) SC SCH (07:57)
[2019-04-11] MEDS: FOLIC ACID 1 MG TAB PO SCH (07:57)
[2019-04-11] MEDS: PANTOPRAZOLE 40MG INJ (PROTONIX) (C9113) IV SCH ×2 (07:58→22:25)
--- NOTE | 2019-04-11 08:12 | REP ---
Portable abdomen, AP supine view, 07:55 a.m. for NG tube placement: Comparison is the portable chest performed at the 06:41 a.m. earlier today. The tip of the nasogastric tube and the gastric tube side hole are beneath the left hemidiaphragm in the upper abdomen, likely in the stomach. There is no gastric air to outline the stomach. There is a surgical drain transversely across the lower abdomen. There are midline longitudinal skin vidal. The bowel gas pattern is normal. Impression: The distal tip of the nasogastric tube and the nasogastric tube side hole are beneath the left hemidiaphragm in the upper abdomen, likely in the stomach. Electronically Signed by Nader Moe MD 04/11/2019 08:03 A
[2019-04-11] MEDS ORDERED: GASTROGRAFIN SOLUTION 30ML (Q9963) As Ordered ONE (09:17)
--- NOTE | 2019-04-11 14:28 | IPNPDOC ---
Text Note Date of Service The patient was seen on 04/11/19. NOTE Subjective: Patient is seen and examined at bedside. He states that he feels great this morning. He has been passing flatus. He says that he has had a bowel movement, though there is no nursing documentation of this. He denies chest pain, shortness of breath, abdominal pain, or nausea. Objective: Vitals: See below General: Cachectic appearing elderly male, who does appear stated age. HEENT: NG tube in place. Mucous membranes are moist. Sclerae are anicteric Neck: Supple, no masses, no JVD Lungs: Clear to auscultation bilaterally, though breath sounds are faint; no wheezes, rhonchi, or rales. Heart: Regular rate and rhythm; at the apex there is a soft 2/6 systolic blowing murmur, heard best with the porter of the stethoscope. No other gallops or rubs appreciated. Abdomen: Dressing in place over the midline; dry, clean and intact. Soft. Slightly distended and appropriately tender to palpation. RAJESH drain in the left lower quadrant draining serosanguineous fluid. Extremities: 3+ pitting dependent edema bilaterally to the knees. No clubbing or cyanosis Neuro: Answers questions appropriately, alert and oriented 3, no asterixis or tremors. Psych: Affect full, mood normal. Assessment: 74-year-old male who presented to the emergency department with intractable abdominal pain, nausea, and vomiting; subsequently taken to the operating room the night of 04/08/[address] Gonzales for suspected bowel perforation. Postop day 2, antibiotics day #2. Plan: 1. Suspected posterior duodenal perforation. Status post exploratory laparotomy the night of 04/08/[address] Gonzales, postoperative day #2. Small bowel follow-through scheduled for today. On antibiotics and antifungals. Diet and TPN per general surgery. 2. Acute on chronic hypoxic respiratory failure, status post intubation with successful extubation. After exploratory laparotomy, patient was unable to be weaned from the ventilator and was therefore transferred to the ICU with critical care consult. He was able to be successfully weaned off the ventilator and extubated on 04/09/2019. Currently on home oxygen requirements, 2 L via nasal cannula. 3. Sepsis. Secondary to bowel perforation. Resolved. Empiric antibiotic and antifungal coverage, pending cultures for de-escalation. Beta-(1,3)-D-Glucan pending. 4. Thrombocytopenia. Platelets 155,000 on admission, now 71,000. Peripheral smear and heparin-induced platelet antibodies ordered. 5. Hyperkalemia. Resolved. 6. Transaminitis. Cholestatic pattern on presentation. May have been secondary to bowel perforation. Transaminases trending down. 7. History of COPD. On home oxygen requirement, 2 L via nasal cannula. Should have outpatient pulmonary follow-up for medical optimization and pulmonary function testing. 8. Grade 1 diastolic congestive heart failure, per echocardiogram February 2019. Continue to monitor 9. Pulmonary nodule. 7 mm left upper lung nodule incidentally noted on CT of the chest. Outpatient follow-up with pulmonology 10. History of alcoholism. Per family, and the patient, he drinks alcohol daily. CIWA protocol in place. Thiamine and folate daily. 11. Tobacco dependence. History of heavy smoking. Continue with nicotine patch. Smoking cessation counseling given 12. Protein calorie malnutrition, severe. Per documentation, the family had reported significant weight loss over the last month (example: Brand-new close no longer fitting). He allegedly had poor oral intake and is notably cachectic with temporal wasting on exam. Currently on TPN via PICC line managed by general surgery. 13. History of schizophrenia per the medical record. No abnormalities on psych exam. 13. DVT prophylaxis: Lovenox being held in the setting of potential HIT Disposition: Pending clinical improvement, recommendations from general surgery. Thank you for this consultation, we will follow him along with you Dania GUERRERO, I+O VSDania, I+O Laboratory Tests 04/11/19 05:03 Vital Signs Date Time Temp Pulse Resp B/P (MAP) Pulse Ox O2 Delivery O2 Flow Rate FiO2 04/11/19 10:18 116/61 (79) 04/11/19 09:00 2.0 04/11/19 06:33 63 04/11/19 06:25 96.9 16 91 Room Air 04/09/19 09:00 40 I&O- Last 24 Hours up to 6 AM 04/11/19 06:00 Intake Total 1722.5 ml Output Total 1710 ml Balance 12.5 ml GME ATTESTATION GME ATTESTATION My faculty preceptor for this patient encounter was physically present during the encounter and was fully available. All aspects of the patient interview, examination, medical decision making process, and medical care plan development were reviewed and approved by the faculty preceptor. The faculty preceptor is aware and concurs with the plan as stated in the body of this note and will attest to such by his/her cosignature. BERTHA MALOEN D.O. Apr 11, 2019 14:28
[2019-04-11] MEDS: HumaLOG INSULIN (NovoLOG) PER UNIT SC SCH (17:35)
--- NOTE | 2019-04-11 17:52 | REP ---
Upper GI Air Contrast with SBFT The procedure was performed by ELVIRA Villalobos, under the the direct supervision of Dr. Covington. The images were reviewed with Dr. Covington. This is a limited study to evaluate for postsurgical anastomotic leak. 120 ml of a 50/50 solution of Gastrografin and water was injected in to the nasogastric tube in order to perform the study. The stomach durham are normally outlined. The duodenal durham are normally outlined. The mucosal folds are smooth and regular. There is no evidence of an anastomotic leak. The visualized portion of the proximal small bowel appears normal in course and caliber. Impression: 1. No evidence for an anastomotic leak. 0.4 minutes of fluoroscopy time was utilized for this procedure. Some fluoroscopic images are performed with last image hold technology. These images require no additional radiation. Reviewed by ELVIRA Decker 04/11/2019 01:26 P Electronically Signed by Bonilla Covington MD 04/11/2019 05:43 P
[2019-04-11] MEDS ORDERED: FAT EMULSION IV 20% 500 ML IV SCH (18:00)
[2019-04-11] MEDS ORDERED: AMINO AC/ELECTROLYTE/DEX/CALC 2,000 ML IV SCH (18:00)
--- NOTE | 2019-04-11 20:36 | IPNPDOC ---
Text Note Date of Service The patient was seen on 04/11/19. NOTE No acute events overnight. No complaints. He has been up ambulating. Passing flatus, but no BM yet. VSSAF NAD abd - soft, slightly distended, tender to palpation appropriate, dressing c/d/i, drain in the LLQ is serosanguinous labs - below UGI - no leak A) 74y/o male s/p ex lap with washout for suspected posterior duodenal perforation P) clamp NGT flq diet amb in [place] TPN ABX, antifungal lovenox carafate, PPI monitor labs Ashu Gonzales DO VS,Fishbone, I+O VS, Fishbone, I+O Laboratory Tests 04/11/19 05:03 Vital Signs Date Time Temp Pulse Resp B/P (MAP) Pulse Ox O2 Delivery O2 Flow Rate FiO2 04/11/19 14:00 98.2 62 18 120/66 (84) 95 Room Air 04/11/19 09:00 2.0 04/09/19 09:00 40 I&O- Last 24 Hours up to 6 AM 04/11/19 06:00 Intake Total 1722.5 ml Output Total 1710 ml Balance 12.5 ml IVANNA GONZALES DO Apr 11, 2019 20:36
[2019-04-11] MEDS: OLANZapine 5 MG TAB PO SCH (22:25)
[2019-04-11] MEDS: ATORVASTATIN 20 MG TAB PO SCH (22:26)
[2019-04-11] MEDS: METOPROLOL SUCC *XL* 25MG TAB (TopROL *XL*) PO SCH (22:26)
--- NOTE | 2019-04-11 22:35 | HPE ---
DATE OF ADMISSION: 04/08/2019 Date of history and physical is 04/09/2019. HISTORY OF PRESENT ILLNESS: The patient is a 74-year-old male who came into the hospital late in the evening on 04/08/2019 due to a couple week history of melenic stools. He was planning an outpatient endoscopy. However, he was having persistent bleeding and started to have abdominal distension and pain and called his sister because he just was not feeling very well. He was brought to the emergency room. In the emergency room (ER), he was found to have hypotension, hypothermia, hypoglycemia, as well as CT findings of free air in the abdomen and a large amount of free fluid. Because of this I was called to evaluate. On exam, the patient complains of pain everywhere in his abdomen. He is distended. No nausea or vomiting. No fevers. Slightly poor historian, had a hard time really explaining to me his history. However, he was still awake and oriented. After review of his CT scan and physical exam, the plan was to proceed with emergent operation. PAST MEDICAL HISTORY: Chronic obstructive pulmonary disease (COPD). Hypertension. Diastolic heart failure. Schizophrenia. Gastrointestinal (GI) bleeding. Hyperlipidemia. Depression. PAST SURGICAL HISTORY: Left shoulder surgery. Right knee surgery. Left rib fracture. SOCIAL HISTORY: The patient lives alone. Smokes cigarettes. Denies drugs. Family claims that he does use alcohol. ALLERGIES: None. HOME MEDICATIONS: Please see med rec. REVIEW OF SYSTEMS: Pertinent positives and negatives as stated in the history of the present illness. PHYSICAL EXAMINATION: Patient is awake and oriented to person, place and time. Vital signs: Temperature 96.1, pulse 51, respirations 16, blood pressure 99/51, pulse oximetry 88%. HEENT: Pupils equal, round, reactive to light and accommodation. Heart: S1, S2, regular rate and rhythm. Lungs: Clear to auscultation bilaterally. Abdomen: Soft, distended, tender to palpation diffusely. There was rebound throughout the entire abdomen and involuntary guarding. Extremities: No clubbing, cyanosis or edema. LABORATORY DATA: White count was 1.3, hemoglobin 10.8, platelets 155, neutrophils 78, lactic acid 1.6, potassium 5.2, AST 127, ALT 104, alkaline phosphatase 119. IMAGING: CT abdomen and pelvis was reviewed by myself. There is extensive fluid throughout the entire abdomen, small amount of intraperitoneal air under the diaphragm, concerning for the perforated viscus, extensive diverticulosis but no signs of any diverticulitis. ASSESSMENT AND PLAN: The patient is a 74-year-old male with peritonitis, leukopenia, hypoglycemia, hypotension, hypothermia, likely all secondary to perforated viscus. With his history of tobacco and alcohol usage and melenic stools, this could be secondary to ischemic bowel versus duodenal or gastric ulcers and possibly even perforated diverticulum. Recommendation at this time is to proceed with exploratory laparotomy. Risks were explained in detail with him and his sister. They all agreed. He was taken the operating room for emergent operation and postoperatively will be admitted to the floor for further care. KERON
[2019-04-12] MEDS: MICAFUNGIN SODIUM 100 MG in D5W MINI-BAG PLUS 100 ML IV SCH ×2 (00:11→22:50)
[2019-04-12] MEDS: HumaLOG INSULIN (NovoLOG) PER UNIT SC SCH ×4 (00:12→18:16)
[2019-04-12] MEDS: IPRATROPIUM 0.5MG/ALBUTEROL 2.5MG INH SOL UD 3ML (DUONEB)(J7620) NEB SCH ×4 (02:13→20:20)
[2019-04-12] MEDS: PIPERACILLIN/TAZOBACTAM SOD 3.375 GM in D5W MINI-BAG PLUS 50 ML IV SCH ×4 (05:45→22:51)
[2019-04-12 05:48] VITALS: BP 115/61
[2019-04-12 06:00] VITALS: BP 115/61
[2019-04-12] MEDS: SODIUM CHLORIDE 0.9% INJ 10 ML SYR IV SCH ×2 (06:19→18:03)
[2019-04-12 06:46] LABS: HEMATOCRIT 29.6 % (42.0-52.0); MEAN CORPUSCULAR HGB CONC 30.4 g/dl (32.0-36.5); MEAN CORPUSCULAR VOLUME 95.5 fl (80.0-96.0); WHITE BLOOD COUNT 14.3 10^3/uL (4.0-10.0)
[2019-04-12 06:47] LABS: PLATELET COUNT, AUTOMATED 64 10^3/uL (150-450)
[2019-04-12 06:55] LABS: BLOOD UREA NITROGEN 31 MG/DL (7-18); CALCIUM LEVEL 8.1 MG/DL (8.8-10.2); CARBON DIOXIDE LEVEL 35 MEQ/L (21-32); CHLORIDE LEVEL 105 MEQ/L (98-107); CREATININE FOR GFR 0.56 MG/DL (0.70-1.30); GLOMERULAR FILTRATION RATE > 60.0 (>42); GLUCOSE, FASTING 107 MG/DL (70-100); MAGNESIUM LEVEL 2.1 MG/DL (1.8-2.4); POTASSIUM SERUM 4.3 MEQ/L (3.5-5.1); SODIUM LEVEL 140 MEQ/L (136-145)
[2019-04-12 07:08] LABS: ANISOCYTOSIS 1+; HYPOCHROMASIA 1+; LYMPHOCYTES 2 % (16-44); METAMYELOCYTES 1 % (0-0); MONOCYTES 3 % (0-5); MYELOCYTES 1 % (0-0); NEUTROPHILS 89 % (28-66); POIKILOCYTOSIS 2+
[2019-04-12 07:09] LABS: PLATELET ESTIMATE MARKED DECREASE (NORMAL)
--- NOTE | 2019-04-12 07:32 | IPNPDOC ---
Text Note Date of Service The patient was seen on 04/12/19. NOTE No acute events overnight. No complaints. He has been up ambulating. Passing flatus, and had a small BM. VSSAF NAD abd - soft, slightly distended, tender to palpation appropriate, dressing c/d/i, drain in the LLQ is serous labs - below wbc - 11.2>14.3 UGI - no leak A) 74y/o male s/p ex lap with washout for suspected posterior duodenal perforation P) d/c NGT flq diet, ensure amb in sequeira continue TPN ABX, antifungal lovenox carafate, PPI monitor labs Ashu Gonzales DO VS,Fishbone, I+O VS, Fishbone, I+O Laboratory Tests 04/12/19 06:22 Vital Signs Date Time Temp Pulse Resp B/P (MAP) Pulse Ox O2 Delivery O2 Flow Rate FiO2 04/12/19 06:00 98.3 66 20 115/61 (79) 91 Nasal Cannula 2.0 04/09/19 09:00 40 I&O- Last 24 Hours up to 6 AM 04/12/19 06:00 Intake Total 240 ml Output Total 2325 ml Balance -2085 ml IVANNA GONZALES DO Apr 12, 2019 07:32
[2019-04-12 08:00] VITALS: BP 115/64
[2019-04-12] MEDS: FOLIC ACID 1 MG TAB PO SCH (08:42)
[2019-04-12] MEDS: PANTOPRAZOLE 40MG INJ (PROTONIX) (C9113) IV SCH ×2 (08:42→22:15)
[2019-04-12] MEDS: MULTIVITAMINS/MINERALS THERAP 1 TAB PO SCH (08:43)
[2019-04-12] MEDS: lisinopriL 10 MG TAB PO SCH (08:43)
[2019-04-12] MEDS: SENOKOT S TAB PO SCH ×2 (08:43→22:16)
[2019-04-12] MEDS: SUCRALFATE 1 GM TAB PO SCH ×4 (08:43→22:15)
[2019-04-12] MEDS: SERTRALINE HCL 50 MG TAB PO SCH (08:43)
[2019-04-12] MEDS: ENOXAPARIN 40 MG/0.4 ML SYRINGE (J1650) SC SCH (08:56)
[2019-04-12 14:00] VITALS: BP_SYST 114; BP_SYST 118; BP_DIAS 58; BP_DIAS 70
[2019-04-12] MEDS ORDERED: FAT EMULSION IV 20% 500 ML IV SCH (18:00)
[2019-04-12] MEDS ORDERED: MULTIVITAMIN -ADULT INJECTION 10 ML, CR/CU/SE/MN/ZN INJ 1 ML in AMINO AC/ELECTROLYTE/DE... IV SCH (18:00)
--- NOTE | 2019-04-12 18:38 | IPNPDOC ---
Subjective Date Seen The patient was seen on 04/12/19. Subjective Chief Complaint/HPI Had some oozing at site of picc. No formal complaints. Objective Physical Examination General Exam: Positive: Alert Eye Exam: Positive: PERRLA; Negative: Sclera icteric ENT Exam: Positive: Pharynx Normal Neck Exam: Negative: JVD, thyromegaly Chest Exam: Positive: Clear to auscultation Heart Exam: Positive: Rate Normal Abdomen Exam: Positive: Soft; Negative: Normal bowel sounds Extremity Exam: Negative: Edema Neuro Exam: Positive: Normal Speech Psych Exam: Positive: Mood NL; Negative: Anxiety Assessment /Plan Assessment 1. Suspected posterior duodenal perforation. Status post exploratory laparotomy the night of 04/08/[address] Gonzales, postoperative day #4 . - mgmt per gen surgery 2. Acute on chronic hypoxic respiratory failure, status post intubation with successful extubation. After exploratory laparotomy, patient was unable to be weaned from the ventilator and was therefore transferred to the ICU with critical care consult. He was able to be successfully weaned off the ventilator and extubated on 04/09/2019. Currently on home oxygen requirements, 2 L via nasal cannula. 3. Sepsis. Secondary to bowel perforation. Resolved. Empiric antibiotic and antifungal coverage, pending cultures for de-escalation. Beta-(1,3)-D-Glucan pending. 4. Thrombocytopenia. Platelets 155,000 on admission, now 71,000. Peripheral smear and heparin-induced platelet antibodies ordered. 5. Hyperkalemia. Resolved. 6. Transaminitis. Cholestatic pattern on presentation. May have been secondary to bowel perforation. Transaminases trending down. 7. History of COPD. On home oxygen requirement, 2 L via nasal cannula. Should have outpatient pulmonary follow-up for medical optimization and pulmonary function testing. 8. Grade 1 diastolic congestive heart failure, per echocardiogram February 2019. Continue to monitor 9. Pulmonary nodule. 7 mm left upper lung nodule incidentally noted on CT of the chest. Outpatient follow-up with pulmonology 10. History of alcoholism. Per family, and the patient, he drinks alcohol daily. CIWA protocol in place. Thiamine and folate daily. 11. Tobacco dependence. History of heavy smoking. Continue with nicotine patch. Smoking cessation counseling given 12. Protein calorie malnutrition, severe. Per documentation, the family had reported significant weight loss over the last month (example: Brand-new close no longer fitting). He allegedly had poor oral intake and is notably cachectic with temporal wasting on exam. Currently on TPN via PICC line managed by general surgery. 13. History of schizophrenia per the medical record. No abnormalities on psych exam. 13. DVT prophylaxis: Lovenox being held in the setting of potential HIT Plan/VTE VTE Prophylaxis Ordered?: Yes VTE Exclusion Mechanical Proph: N/A:VTE Prophy Ordered VTE Exclusion Pharmacological: Thrombocytopenia VS, I&O, 24H, Fishbone Vital Signs/I&O Vital Signs Date Time Temp Pulse Resp B/P (MAP) Pulse Ox O2 Delivery O2 Flow Rate FiO2 04/12/19 14:00 98.3 75 18 114/58 (76) 95 Nasal Cannula 2.0 04/09/19 09:00 40 I&O- Last 24 Hours up to 6 AM 04/12/19 06:00 Intake Total 240 ml Output Total 2325 ml Balance -2085 ml Laboratory Data 24H LABS Laboratory Tests 2 04/12/19 00:04: Bedside Glucose (Misc Panel) 119H 04/12/19 06:08: Bedside Glucose (Misc Panel) 104 04/12/19 06:22: Neutrophils (%) (Auto) , Lymphocytes # (Auto) , Nucleated Red Blood Cells % (auto) 0.3H, Neutrophils 89H, Band Neutrophils 4, Lymphocytes (Manual) 2L, Monocytes (Manual) 3, Metamyelocytes 1H, Myelocytes 1H, Hypochromasia 1+, Poikilocytosis 2+, Anisocytosis 1+, Platelet Estimate MARKED DECREASE, Differential Slide Review Report, Immature Platelet Fraction 10.8, Peripheral Blood Smear Path Consult PERIPHERAL SMEAR, Anion Gap 0L, Glomerular Filtration Rate > 60.0, Calcium Level 8.1L, Magnesium Level 2.1 04/12/19 11:35: Bedside Glucose (Misc Panel) 168H 04/12/19 17:36: Bedside Glucose (Misc Panel) 142H CBC/BMP Laboratory Tests 04/12/19 06:22 Microbiology Microbiology 04/09/19 Fungal Smear, Received Pending 04/09/19 Fungal Culture, Received Pending 04/09/19 Gram Stain - Final, Complete 04/09/19 Body Fluid Culture - Final, Complete Citrobacter Freundii Escherichia Coli 04/09/19 Blood Culture - Preliminary, Resulted No Growth after 72 hours. All specime... 04/09/19 Blood Culture - Preliminary, Resulted No Growth after 72 hours. All specime... SHIMA ANDRADE MD Apr 12, 2019 18:38
[2019-04-12 22:00] VITALS: BP_SYST 101; BP_SYST 121; BP_DIAS 48; BP_DIAS 58
[2019-04-12] MEDS: SODIUM CHLORIDE 0.9% INJ 10 ML SYR IV PRN (22:15)
[2019-04-12] MEDS: OLANZapine 5 MG TAB PO SCH (22:16)
[2019-04-12] MEDS: ATORVASTATIN 20 MG TAB PO SCH (22:16)
[2019-04-12] MEDS: METOPROLOL SUCC *XL* 25MG TAB (TopROL *XL*) PO SCH (22:17)
[2019-04-13] VITALS (20 sets, daily range): BP systolic 80–123; BP diastolic 50–92; O2SAT 96–98
[2019-04-13] MEDS: HumaLOG INSULIN (NovoLOG) PER UNIT SC SCH ×5 (00:30→23:26)
[2019-04-13] MEDS: IPRATROPIUM 0.5MG/ALBUTEROL 2.5MG INH SOL UD 3ML (DUONEB)(J7620) NEB SCH ×4 (01:40→19:51)
[2019-04-13] MEDS ORDERED: NS 500 ML IV ONE (04:30)
[2019-04-13 05:14] LABS: HEMATOCRIT 28.9 % (42.0-52.0); HEMOGLOBIN 8.5 g/dl (13.5-17.5); MEAN CORPUSCULAR HEMOGLOBIN 28.5 pg (27.0-33.0); MEAN CORPUSCULAR HGB CONC 29.4 g/dl (32.0-36.5); RED BLOOD COUNT 2.98 10^6/uL (4.30-6.10)
[2019-04-13 05:30] LABS: PLATELET COUNT, AUTOMATED 48 10^3/uL (150-450)
[2019-04-13 05:32] LABS: ABG BASE EXCESS 4.7 (-2.0-2.0); ABG HCO3 33.5 MEQ/L (22.0-26.0); ABG O2 SATURATION 99.1 % (95.0-99.0); ABG PARTIAL PRESSURE O2 140.6 mmHg (75.0-100.0); ABG STANDARD HCO3 28.7 MEQ/L (22.0-26.0); ABG TOTAL CO2 35.9 MEQ/L (23.0-31.0)
[2019-04-13 05:33] LABS: ANISOCYTOSIS 1+; HYPOCHROMASIA 1+; LYMPHOCYTES 2 % (16-44); METAMYELOCYTES 1 % (0-0); NEUTROPHILS 95 % (28-66); PLATELET ESTIMATE MARKED DECREASE (NORMAL)
[2019-04-13] MEDS: PIPERACILLIN/TAZOBACTAM SOD 3.375 GM in D5W MINI-BAG PLUS 50 ML IV SCH ×3 (05:33→20:11)
[2019-04-13 05:34] LABS: ABG PARTIAL PRESSURE CO2 79.9 mmHg (35.0-45.0)
[2019-04-13 05:34] LABS: GIANT PLATELETS 1+
[2019-04-13 05:43] LABS: BLOOD UREA NITROGEN 32 MG/DL (7-18); CALCIUM LEVEL 7.9 MG/DL (8.8-10.2); CARBON DIOXIDE LEVEL 35 MEQ/L (21-32); CHLORIDE LEVEL 105 MEQ/L (98-107); CREATININE FOR GFR 0.58 MG/DL (0.70-1.30); GLOMERULAR FILTRATION RATE > 60.0 (>42); GLUCOSE, FASTING 117 MG/DL (70-100); MAGNESIUM LEVEL 1.9 MG/DL (1.8-2.4); NT-PRO BNP 3686 PG/ML (<125); POTASSIUM SERUM 3.8 MEQ/L (3.5-5.1); SODIUM LEVEL 141 MEQ/L (136-145)
[2019-04-13] MEDS: SODIUM CHLORIDE 0.9% INJ 10 ML SYR IV SCH ×2 (06:00→17:29)
[2019-04-13 07:09] LABS: INFLUENZA A AMPLIFICATION NEGATIVE (NEGATIVE); INFLUENZA B AMPLIFICATION NEGATIVE (NEGATIVE)
--- NOTE | 2019-04-13 07:42 | IPNPDOC ---
Text Note Date of Service The patient was seen on 04/13/19. NOTE I was called urgently to the bedside of the patient at 04:39 as the patient b ecame hypotensive with blood pressure 80/40. Patient was placed in Trendelenburg position and a 500 mL bolus was given. Patient's blood pressure responded however, patient still appeared obtunded. Patient had difficulty maintaining oxygen saturations between 88-92% with just nasal cannula oxygen. ABG, CBC, BMP, BNP, lactic acid were ordered. Patient will switch to a Ventimask which was a without the patient's oxygen saturation. On exam, patient was alert and oriented 3 but would fall asleep easily. Patient was using accessory muscles to breathe. Patient's heart was regular rate and rhythm lungs were diminished bilaterally with no rhonchi, rales, wheezes. ABG came back with a pH of 7.24 and a PCO2 of 79.9. Patient was transferred to the intensive care unit at this time for noninvasive positive pressure ventilation. Patient was started on noninvasive positive pressure ventilation with settings of 14/6. Customer Success Representative consult was placed. Patient was alert and oriented 3 and was more comfortable appearing after noninvasive positive pressure ventilation was started. VS,Fishbone, I+O VS, Fishbone, I+O Laboratory Tests 04/13/19 05:04 Vital Signs Date Time Temp Pulse Resp B/P (MAP) Pulse Ox O2 Delivery O2 Flow Rate FiO2 04/13/19 06:30 71 101/57 (72) 96 NIPPV (BIPAP/CPAP) 35 04/13/19 06:17 21 04/13/19 06:05 96.1 04/13/19 04:35 4.0 I&O- Last 24 Hours up to 6 AM 04/13/19 05:59 Intake Total 2200 ml Output Total 1450 ml Balance 750 ml AMARILIS BETH DO Apr 13, 2019 07:42
--- NOTE | 2019-04-13 07:46 | REP ---
Portable chest, 06:55 a.m., single AP view with the patient semi upright: Comparison is 04/11/2019. The mediastinum is shifted to the left. The patient is not rotated. The left hemidiaphragm and left costophrenic angle are obscured. The constellation of findings may represent left lower lobe collapse. There is a left upper lobe infiltrate as an interval change. The right lung is clear. The right costophrenic angle is mildly effaced suggestive of a small right pleural effusion. This is unchanged. The nasogastric tube has been removed. Cardiac size is normal. Impression: Constellation of findings suggests left lower lobe collapse. Additionally there is a left upper lobe infiltrate. Small right pleural effusion. Electronically Signed by Nader Moe MD 04/13/2019 07:37 A
[2019-04-13] MEDS ORDERED: LEVALBUTEROL 1.25 MG/0.5 ML CONCENTRATE NEB INH SCH (08:00)
[2019-04-13] MEDS: SENOKOT S TAB PO SCH ×2 (08:34→20:19)
[2019-04-13] MEDS: FOLIC ACID 1 MG TAB PO SCH (08:34)
[2019-04-13] MEDS: PANTOPRAZOLE 40MG INJ (PROTONIX) (C9113) IV SCH ×2 (08:34→20:19)
[2019-04-13] MEDS: SUCRALFATE 1 GM TAB PO SCH ×4 (08:34→20:18)
[2019-04-13] MEDS: MULTIVITAMINS/MINERALS THERAP 1 TAB PO SCH (08:34)
[2019-04-13] MEDS: SERTRALINE HCL 50 MG TAB PO SCH (08:34)
[2019-04-13] MEDS: ENOXAPARIN 40 MG/0.4 ML SYRINGE (J1650) SC SCH ×3 (08:35→09:40)
[2019-04-13] MEDS: lisinopriL 10 MG TAB PO SCH (08:36)
[2019-04-13] MEDS: NICOTINE 14 MG/24 HR TRANSDERMAL TD PRN (08:45)
--- NOTE | 2019-04-13 09:35 | IPNPDOC ---
Text Note Date of Service The patient was seen on 04/13/19. NOTE Overnight he developed hypotension and was transferred to the ICU. Xrays show possible atelectasis and pneumonia. This am he denies any problems. He is up in the chair having breakfast. Denies any abd pains, nausea, or emesis. No cough or shortness of breath. VSSAF NAD abd - soft, slightly distended, non tender, dressing c/d/i, drain in the LLQ is serous labs - below UGI - no leak A) 74y/o male s/p ex lap with washout for suspected posterior duodenal perforation leukocytosis thrombocytopenia P) reg diet, ensure amb in sequeira continue TPN ABX, antifungal lovenox carafate, PPI monitor labs ID consult Ashu Gonzales DO VS,Dania, I+O VS, Dania, I+O Laboratory Tests 04/13/19 05:04 Vital Signs Date Time Temp Pulse Resp B/P (MAP) Pulse Ox O2 Delivery O2 Flow Rate FiO2 04/13/19 06:30 71 101/57 (72) 96 NIPPV (BIPAP/CPAP) 35 04/13/19 06:17 21 04/13/19 06:05 96.1 04/13/19 04:35 4.0 l I&O- Last 24 Hours up to 6 AM 04/13/19 05:59 Intake Total 2700 ml Output Total 1450 ml Balance 1250 ml IVANNA GONZALES DO Apr 13, 2019 09:35
--- NOTE | 2019-04-13 14:21 | IPNPDOC ---
Date Seen The patient was seen on 04/13/19. Progress Note SUBJECTIVE: Patient seen and examined. Overnight patient became hypotensive however blood pressure improved with fluid bolus. At that time patient also was noted to have increased work of breathing utilizing accessory muscles and increased lethargy. ABG noting hypercapnic respiratory failure with a pH = 7.24, PCO2 = 79.9. X-ray shows partial collapse of the left lower lobe. Patient was transferred back to the intensive care unit for BiPAP. Patient on BiPAP through the remainder of the night. On examination this morning, patient awake alert and oriented, without respiratory distress on BiPAP. With BiPAP removed, patient intermittently desaturating into the 80s, therefore nasal cannula switched Vapotherm. Patient appears comfortable on Vapotherm without any respiratory distress and no critical signs of hypercapnia. Patient given Lasix for diuresis without any urine output. Patient was bladder scanned which was noted to have more than 600 mL of fluid suspected. Indwelling Diaz catheter was reinserted with more than 1 L of fluid drained. Brief Hospital Course: Patient is a 74-year-old male who presented to the emergency department on 03/19 with complaint of abdominal pain. CT of the abdomen in the ER which was significant for small amount of free intraperitoneal air. Patient was taken to the OR emergently overnight for ex-lap, however, no bowel perforation identified. Given surgical and CT findings patient was suspected posterior duodenal perforation. After surgery patient was lethargic and unable to be weaned from the ventilator and therefore is transferred to the ICU. Patient was successfully extubated on the morning of 04/09/2019. Patient also noted to be hypoglycemia requiring supplementation with glucose and clinical dehydration requiring IV fluid, however this resolved shortly after admission. Patient was started on TPN on 04/09/2021 due to baseline severe protein calorie malnutrition. Patient was initially transferred to the floor on 04/10/2019 with progression of his care, diet advanced to full liquid diet, and NG tube discontinued. On the morning of 04/13/2019 patient with mild hypotension responsive to IV fluids and acute on chronic hypercapnic hypoxic respiratory failure requiring transfer to the ICU with need for BiPAP. Patient was transitioned from BiPAP to Vapotherm. He was also noted to have urinary retention and Diaz was subsequently reinserted. REVIEW OF SYSTEMS: CONSTITUTIONAL: Denies fevers,chills. HEENT: Denies headache, dizziness, changes in vision, runny nose, sore throat CARDIOVASCULAR: Denies chest pain, palpitations. RESPIRATORY: Denies shortness of breath, cough. GENITOURINARY: Denies difficulty with urination MUSCULOSKELETAL: Denies generalized weakness. GASTROINTESTINAL: Denies abdominal pain, nausea, vomiting. PHYSICAL EXAMINATION: VITAL SIGNS: Please see below. GENERAL: Alert and oriented, in no acute distress. Patient appears cachectic. HENT: Normocephalic, atraumatic, temporal muscle wasting noted, NG tube in place EYES: Pupils equal round and reactive to light, no scleral icterus CARDIOVASCULAR: Regular rate and rhythm, 3+ lower extremity pitting edema RESPIRATORY: Decreased air movement throughout, however no wheezing noted, non labored breathing on nasal cannula ABDOMINAL: Soft, nontender, hypoactive bowel sounds, bandages in place, RAJESH turning in place EXTREMITIES: Normal range of motion and strength of all 4 extremities NEUROLOGICAL: Alert and oriented 3 without focal deficits noted SKIN: Warm and dry LABORATORY DATA: Please see below. IMAGING: Independently visualize chest x-ray which shows partial left lower lobe collapse. ASSESSMENT/PLAN: #Acute on chronic hypoxic hypercapnic respiratory failure - Likely secondary to underlying severe COPD with mucous plugging resulting in left lower lobe lung collapse improved - BiPAP when necessary only, will use Vapotherm and titrate to keep SPO2 greater than 88% - DuoNeb nebs every 6 hours, chest PT - Sputum culture if able - Patient chronically on 2 L O2 via nasal cannula at home #Suspected posterior duodenal perforation - Status post exploratory laparoscopy with washout on 04/09/2019, POD 4 - Peritoneal fluid cultures equal Citrobacter, Escherichia coli - Continue antibiotics with Zosyn (04/09-present), discontinue Micafungin (04/09- 04/13) - Protonix IV twice a day, Carafate - Incentive spirometer, out of bed, encourage ambulation - Full liquid diet with additional advancement per surgery, given malnutrition C ontinue TPN -we will a chest rate - Gen. surgery following, discussed with surgeon #Sepsis - Likely secondary to suspected duodenal perforation, improving -Continue Zosyn, discontinue micafungin - ID following, discuss with ID #Thrombocytopenia, worsening - Likely 2/2 poor nutritional status which worsened with dilution effect in combination with critical illness - Hit pending, however unlikely to be hit given decrease in platelets prior to start of Lovenox - Monitor closely for bleeding - Hold Lovenox if plt < 50 #Urinary retention - Upon placement of Diaz and immediate drainage of 1.1 L of clear yellow urine was noted -This likely resulted in an increase leukocytosis - Obtain UA to rule out UTI - Start him to tamsulosin 0.4 mg daily #Hypertension - Continue lisinopril 10 mg daily, metoprolol 25 mg nightly, hold for SBP less than 110 #COPD without exacerbation - DuoNeb every 6 #Diastolic heart failure - Grade 1 diastolic heart failure noted on echocardiogram in February 2019 - This particular echo study was done in the inpatient setting. Will likely need repeat echocardiogram as outpatient with an acute illness is over as diastolic heart dysfunction to be inaccurately assess during the acutely ill state -Monitor closely for signs of fluid overload #Pulmonary nodule - 7 mm left upper lung nodule incidentally noted on CT of the chest, given significant smoking history will require outpatient follow-up and repeat CT scan in 6-12 months #Alcohol use - [facility] protocol - Thiamine daily, folate - Will encourage alcohol cessation prior to discharge #Tobacco use - Nicotine patch #Severe protein calorie malnutrition - Family reporting significant weight loss over the last month or which brand- new clothes no longer fit, patient with poor by mouth intake, cachectic appearing with notable temporal wasting -Continue TPN Resolved Hospital Problems: Clinical dehydration with hypotension Hyperkalemia Elevated LFTs Hypoglycemia Diet: Full liquid diet with supplemental TPN @60 mL per hour. Decreed fat emulsion to 10 mL per hour given full liquid diet intake DVT/GI prophylaxis. Lovenox subcutaneous, Protonix twice a day for suspected duodenal perforation L/T/D: RAJESH drain (04/09), Diaz reinserted (04/13) Drips: TPN@60 mL per hour Code Status: Full Code. Daughter (Shira) to be surrogate-decision maker. Dispo: Continue to monitor in the ICU overnight. Titrate Vapotherm to keep SPO2 greater than 80%. We'll transfer her further care to hospitalist service. Will reevaluate at your request. Please reconsult if BiPAP as necessary, for worsenin g clinical status, labs are values. Billin VS, I&O, 24H, Fishbone Vital Signs/I&O Vital Signs Date Time Temp Pulse Resp B/P (MAP) Pulse Ox O2 Delivery O2 Flow Rate FiO2 04/13/19 10:00 74 104/57 (73) 80 HVNI-Vapotherm 25.0 40 04/13/19 08:01 96.7 20 I&O- Last 24 Hours up to 6 AM 04/13/19 06:00 Intake Total 2700 ml Output Total 1450 ml Balance 1250 ml Laboratory Data 24H LABS Laboratory Tests 2 04/12/19 17:36: Bedside Glucose (Misc Panel) 142H 04/13/19 00:10: Bedside Glucose (Misc Panel) 147H 04/13/19 05:04: Neutrophils (%) (Auto) , Lymphocytes # (Auto) , Nucleated Red Blood Cells % (auto) 0.2H, Neutrophils 95H, Band Neutrophils 2, Lymphocytes (Manual) 2L, Metamyelocytes 1H, Hypochromasia 1+, Anisocytosis 1+, Giant Platelets 1+, Platelet Estimate MARKED DECREASE, Anion Gap 1L, Glomerular Filtration Rate > 60.0, Lactic Acid Level 1.4, Calcium Level 7.9L, Magnesium Level 1.9, TJ-Van-V-Type Natriuretic Peptide 3686H 04/13/19 05:11: Blood Gas Bicarbonate Standard 28.7H, Arterial Blood pH 7.240*L, Arterial Blood Partial Pressure CO2 79.9*H, Arterial Blood Partial Pressure O2 140.6H, Arterial Blood Total CO2 35.9H, Arterial Blood HCO3 33.5H, Arterial Blood Base Excess 4.7H, Arterial Blood Oxygen Saturation 99.1H 04/13/19 06:30: Influenza Type A (RT-PCR) NEGATIVE, Influenza Type B (RT-PCR) NEGATIVE 04/13/19 12:34: Bedside Glucose (Misc Panel) 128H CBC/BMP Laboratory Tests 04/13/19 05:04 Microbiology Microbiology 04/09/19 Fungal Smear, Received Pending 04/09/19 Fungal Culture, Received Pending 04/09/19 Gram Stain - Final, Complete 04/09/19 Body Fluid Culture - Final, Complete Citrobacter Freundii Escherichia Coli 04/09/19 Blood Culture - Preliminary, Resulted No Growth after 72 hours. All specime... 04/09/19 Blood Culture - Preliminary, Resulted No Growth after 72 hours. All specime... SHANIKA WELLS DO Apr 13, 2019 14:20
[2019-04-13] MEDS ORDERED: FUROSEMIDE 20 MG/2 ML VIAL (J1940) IV ONE (15:45)
[2019-04-13] MEDS ORDERED: FAT EMULSION IV 20% 500 ML IV SCH (18:00)
[2019-04-13] MEDS ORDERED: FUROSEMIDE 100 MG/10 ML VIAL (J1940) IV SCH (18:00)
[2019-04-13] MEDS ORDERED: AMINO AC/ELECTROLYTE/DEX/CALC 2,000 ML IV SCH (18:00)
[2019-04-13] MEDS: ACETAMINOPHEN TAB 650MG DOSE (2X325MG) PO PRN (18:04)
--- NOTE | 2019-04-13 18:20 | IPNPDOC ---
Subjective Date Seen The patient was seen on 04/13/19. Subjective Chief Complaint/HPI Dustin was transferred overnight to the ICU for NIPPV due to worsen hypercarbic respiratory failure. He has been transitioned to nc oxygen. Objective Physical Examination General Exam: Positive: Alert Eye Exam: Positive: PERRLA; Negative: Sclera icteric ENT Exam: Positive: Pharynx Normal Neck Exam: Negative: JVD, thyromegaly Chest Exam: Positive: Clear to auscultation Heart Exam: Positive: Rate Normal Abdomen Exam: Positive: Soft; Negative: Normal bowel sounds Extremity Exam: Negative: Edema Neuro Exam: Positive: Normal Speech Psych Exam: Positive: Mood NL; Negative: Anxiety Assessment /Plan Assessment # Suspected posterior duodenal perforation. Status post exploratory laparotomy the night of 04/08/[address] Gonzales, postoperative day #5. - mgmt per gen surgery # Acute on chronic hypercarbic and hypoxic respiratory failure, status post intubation with successful extubation. # Chronic COPD on Home oxygen - returned to ICU last night for recurrent hypercarbia, mgt per pulmonary # Sepsis. Secondary to bowel perforation. - Resolved. - Empiric antibiotic and antifungal coverage, - Beta-(1,3)-D-Glucan pending - cx + citrobacter and e.coli # Acute Thrombocytopenia. - heparin-induced platelet antibodies pending - heparin discontinued # Pulmonary nodule. 7 mm left upper lung nodule - Outpatient follow-up with pulmonology # Chronic alcoholism - [facility] protocol # Protein calorie malnutrition, severe. - Currently on TPN via PICC line managed by general surgery. # DVT prophylaxis: Lovenox being held in the setting of potential HIT Plan/VTE VTE Prophylaxis Ordered?: Yes VTE Exclusion Mechanical Proph: N/A:VTE Prophy Ordered VTE Exclusion Pharmacological: Thrombocytopenia VS, I&O, 24H, Fishbone Vital Signs/I&O Vital Signs Date Time Temp Pulse Resp B/P (MAP) Pulse Ox O2 Delivery O2 Flow Rate FiO2 04/13/19 15:33 70 20 123/67 (85) 87 HVNI-Vapotherm 25.0 40 04/13/19 12:01 97.0 I&O- Last 24 Hours up to 6 AM 04/13/19 06:00 Intake Total 2700 ml Output Total 1450 ml Balance 1250 ml Laboratory Data 24H LABS Laboratory Tests 2 04/13/19 00:10: Bedside Glucose (Misc Panel) 147H 04/13/19 05:04: Neutrophils (%) (Auto) , Lymphocytes # (Auto) , Nucleated Red Blood Cells % (auto) 0.2H, Neutrophils 95H, Band Neutrophils 2, Lymphocytes (Manual) 2L, Metamyelocytes 1H, Hypochromasia 1+, Anisocytosis 1+, Giant Platelets 1+, Platelet Estimate MARKED DECREASE, Anion Gap 1L, Glomerular Filtration Rate > 60.0, Lactic Acid Level 1.4, Calcium Level 7.9L, Magnesium Level 1.9, LU-Snv-M-Type Natriuretic Peptide 3686H 04/13/19 05:11: Blood Gas Bicarbonate Standard 28.7H, Arterial Blood pH 7.240*L, Arterial Blood Partial Pressure CO2 79.9*H, Arterial Blood Partial Pressure O2 140.6H, Arterial Blood Total CO2 35.9H, Arterial Blood HCO3 33.5H, Arterial Blood Base Excess 4.7H, Arterial Blood Oxygen Saturation 99.1H 04/13/19 06:30: Influenza Type A (RT-PCR) NEGATIVE, Influenza Type B (RT-PCR) NEGATIVE 04/13/19 12:34: Bedside Glucose (Misc Panel) 128H 04/13/19 17:38: Bedside Glucose (Misc Panel) 110 04/13/19 17:56: CBC/BMP Laboratory Tests 04/13/19 05:04 Microbiology Microbiology 04/09/19 Fungal Smear, Received Pending 04/09/19 Fungal Culture, Received Pending 04/09/19 Gram Stain - Final, Complete 04/09/19 Body Fluid Culture - Final, Complete Citrobacter Freundii Escherichia Coli 04/09/19 Blood Culture - Preliminary, Resulted No Growth after 72 hours. All specime... 04/09/19 Blood Culture - Preliminary, Resulted No Growth after 72 hours. All specime... SHIMA ANDRADE MD Apr 13, 2019 18:20
[2019-04-13] MEDS: FUROSEMIDE 40 MG/4 ML VIAL (J1940) IV SCH (19:25)
[2019-04-13] MEDS: ATORVASTATIN 20 MG TAB PO SCH (20:18)
[2019-04-13] MEDS: TAMSULOSIN 0.4 MG CAP PO SCH (20:19)
[2019-04-13] MEDS: OLANZapine 5 MG TAB PO SCH (20:19)
[2019-04-13] MEDS: METOPROLOL SUCC *XL* 25MG TAB (TopROL *XL*) PO SCH (20:19)
--- NOTE | 2019-04-13 21:53 | CR ---
DATE OF CONSULTATION: 04/13/2019 HISTORY OF THE PRESENT ILLNESS: Dustin Salas is a 74-year-old man who first presented to [facility] Emergency Room (ER) on 04/08/2019 complaining of abdominal pain, nausea and vomiting several times. According to the patient, he had been in his usual state of health but slowly declined over a 2-week time period where he got worsening abdominal pain and distention. The morning that he reported to the ER, he had a very large bowel movement that was blood tinged. He had no improvement of his pain, which prompted him to report to the emergency room. Once he reported to the emergency room, he underwent a CT of the abdomen and pelvis and a chest CT, which showed a perforated viscus and a small amount of intraperitoneal air, as well as a left pleural effusion and a left upper lobe pulmonary nodule. He was immediately taken into surgery by Dr. Nader Gonzales for exploratory laparotomy where it was presumed that he had posterior duodenal perforation. Today, he is postoperative day #6, and he is currently in the intensive care unit (ICU) being taken care of by the hospitalist service and the critical care service and surgical service. The infectious disease team was called for consult for antibiotic management in the patient in his postoperative course. Today, the patient reports he is eating and drinking well. He is not experiencing any shortness of breath or abdominal pain. He is having normal bowel movements. Of note, critical care team notes that the patient is still requiring high flow oxygen at 25 liters with his home dose of only 2 liters. He is coughing and producing only whitish sputum. Otherwise he has no complaints on our exam today. PAST MEDICAL HISTORY: Significant for; 1. Chronic obstructive pulmonary disease, on 2 liters of oxygen at home. 2. Hypertension. 3. Diastolic heart failure. 4. Schizophrenia. 5. Symptomatic anemia. 6. History of gastrointestinal (GI) bleed. 7. Hypertension. 8. Hyperlipidemia. 9. Depression. PAST SURGICAL HISTORY: 1. Left shoulder surgery. 2. Right knee surgery. 3. Left rib fracture. SOCIAL HISTORY: The patient lives alone. He is . He still smokes cigarettes. He walks independently without a cane or a walker, and his healthcare proxy is his daughter. ALLERGIES: He has no known drug allergies. CURRENT MEDICATIONS DURING HOSPITALIZATION: - acetaminophen 650 mg every 4 hours as needed - [place] one tablet by mouth every 6 hours as needed for pain - DuoNebs 3 mL as needed for shortness of breath - He is receiving total parenteral nutrition (TPN). - atorvastatin 20 mg by mouth nightly - docusate/Senna one tablet by mouth twice a day - Lovenox 40 mg subcu daily - folic acid 1 mg by mouth daily - Lasix IV 40 mg every 12 hours - Toradol 30 mg IV every 6 hours as needed for pain - lisinopril 10 mg by mouth daily - Ativan 2 mg by mouth per Clinical [place] Withdrawal Assessment (CIWA) protocol - metoprolol succinate 25 mg by mouth nightly - Zyprexa 15 mg by mouth nightly - Protonix 40 mg IV twice a day - Zosyn 3.375 grams IV every 6 hours - sertraline 50 mg daily - Carafate 1 gram by mouth before food and nightly - Flomax 0.4 mg by mouth nightly FAMILY HISTORY: Noncontributory. PHYSICAL EXAMINATION: Vital Signs: At this time are temperature of 97.3, pulse of 60, respiratory rate of 20, blood pressure of 103/55, pulse oximetry is 99% on 40% FiO2, 25 liter flow rate of Vapotherm. Generally, the patient is laying in bed. He is calm. He is in no acute distress. He is very pleasant. HEENT: His head is normocephalic, atraumatic. His extraocular movements are intact. His pupils are equally round and reactive to light. Neck: Supple with no thyromegaly and no lymphadenopathy. Chest: He has even chest rise. Lungs: He has rhonchi throughout the right upper and middle lobe with some rales and some crackles in bilateral lower lobes. Cardiovascular Exam: He is regular rate and rhythm with no murmurs, rubs, or gallops. Normal S1, normal S2. Abdomen: Surgical site is clean, dry and intact with vidal in place underneath a clean, dry and intact bandage. He is soft and nontender to palpation. He has positive bowel sounds. He has no masses. No organomegaly. Extremities: He has 2+ pitting edema up to his thighs bilaterally. He has no clubbing or cyanosis in his extremities. Neurologic Exam: Cranial nerves II-XII are intact with no obvious focal deficits. Psychiatric: He is awake, alert, and oriented times three with normal mood and normal affect. Skin: He has no new rashes or lesions. Lymphatics: He has no enlarged lymph nodes in the posterior auricular, cervical or femoral chain. LABORATORY: CBC demonstrates a white blood cell count of 16 from 14.3 yesterday, a hemoglobin of 8.5, a hematocrit of 28.9, a platelet count of 48. His chemistries demonstrate a sodium of 141, potassium of 3.8, chloride of 105, carbon dioxide of 35, BUN of 32, and a creatinine of 0.58. His calcium was 7.9. His BNP was 3686. His albumin is low at 1.8. His most recent blood gas was found to be 7.240, 79 and 140. A UA was drawn today, which was essentially negative for infection. A Beta-D Glucan was ordered on 04/09/2019 which was found to be less than 80 , which is normal. Microbiology: Two blood cultures have been drawn and no growth after 72 hours. A gram-stain of the peritoneal fluid has grown Citrobacter freundii and Escherichia (E) coli. A fungal smear and fungal culture of the peritoneal fluid are both pending. A peripheral smear was drawn on 04/12/2019, which showed leukocytosis consistent with clinical history of perforated viscus, normochromic, normocytic anemia, and thrombocytopenia. In addition, he had a chest x-ray done this morning, 04/13/2019, which demonstrated mediastinum shifted to the left. The patient is not rotated. His left hemidiaphragm and his left costophrenic angle are obscured, and the constellation of findings may represent left lower lobe collapse. Additionally, there is a left upper lobe infiltrate and a small right pleural effusion. ASSESSMENT: This is a 74-year-old man with a history of GI bleed and chronic obstructive pulmonary disease (COPD) who presented with severe abdominal pain, found to have perforated viscus. He is status post exploratory laparotomy, now with positive peritoneal fluid culture for Citrobacter and Escherichia (E) coli. Postoperative care has been complicated by episodes of hypotension and increasing oxygen requirements requiring a longer stay in the ICU. PLAN: 1. Perforated viscus. The patient was previously on Micafungin, but this has been stopped and it is less likely that it is fungal in nature. We agree with the antibiotic choice of Zosyn. The question about his increased white blood cell count at this time is most likely reactive. Should it continue to increase, we would recommend getting imaging via CT of his abdomen and pelvis to assess for any new abscesses that may have developed after surgery. We will wait to see the results of the fungal smear and culture and will treat accordingly. 2. Hypoxia. Likely secondary to mucous plugging. This is less likely a pneumonia. The patient does not have any fevers at this time. Continue aggressive pulmonary toilet including incentive spirometry, which has been ordered and Acapella as per respiratory therapy. Thank you for this consultation. We are happy to answer any questions that should arise in this patient's care. KERON
[2019-04-14] VITALS (15 sets, daily range): BP systolic 74–111; BP diastolic 42–61; O2SAT 89–99
[2019-04-14] MEDS ORDERED: NS 500 ML IV ONE (00:15)
[2019-04-14] MEDS: PIPERACILLIN/TAZOBACTAM SOD 3.375 GM in D5W MINI-BAG PLUS 50 ML IV SCH ×4 (01:38→20:30)
[2019-04-14] MEDS: IPRATROPIUM 0.5MG/ALBUTEROL 2.5MG INH SOL UD 3ML (DUONEB)(J7620) NEB SCH ×4 (04:58→19:47)
[2019-04-14 05:01] LABS: BASO % 0.1 % (0.0-1.0); HEMATOCRIT 26.8 % (42.0-52.0); LYMPH # 0.2 10^3/uL (1.5-5.0); LYMPH % 1.4 % (24.0-44.0); MEAN CORPUSCULAR HEMOGLOBIN 27.9 pg (27.0-33.0); MEAN CORPUSCULAR HGB CONC 29.9 g/dl (32.0-36.5); MEAN CORPUSCULAR VOLUME 93.4 fl (80.0-96.0); MONO # 0.4 10^3/uL (0.0-0.8); MONO % 3.5 % (0.0-5.0); NEUTROPHILS # 11.3 10^3/uL (1.5-8.5); NEUTROPHILS % 94.2 % (36.0-66.0); PLATELET COUNT, AUTOMATED 40 10^3/uL (150-450); RED BLOOD COUNT 2.87 10^6/uL (4.30-6.10)
[2019-04-14] MEDS: FUROSEMIDE 40 MG/4 ML VIAL (J1940) IV SCH ×2 (05:13→18:41)
[2019-04-14 05:18] LABS: BLOOD UREA NITROGEN 32 MG/DL (7-18); CALCIUM LEVEL 7.5 MG/DL (8.8-10.2); CARBON DIOXIDE LEVEL 35 MEQ/L (21-32); CHLORIDE LEVEL 105 MEQ/L (98-107); CREATININE FOR GFR 0.55 MG/DL (0.70-1.30); GLOMERULAR FILTRATION RATE > 60.0 (>42); GLUCOSE, FASTING 88 MG/DL (70-100); MAGNESIUM LEVEL 1.8 MG/DL (1.8-2.4); POTASSIUM SERUM 3.6 MEQ/L (3.5-5.1); SODIUM LEVEL 144 MEQ/L (136-145)
[2019-04-14] MEDS: HumaLOG INSULIN (NovoLOG) PER UNIT SC SCH ×3 (05:22→18:41)
[2019-04-14] MEDS: SODIUM CHLORIDE 0.9% INJ 10 ML SYR IV SCH ×2 (05:23→18:41)
[2019-04-14] MEDS: SUCRALFATE 1 GM TAB PO SCH ×4 (07:30→20:49)
[2019-04-14] MEDS: SENOKOT S TAB PO SCH ×2 (09:00→21:00)
[2019-04-14] MEDS: lisinopriL 10 MG TAB PO SCH (09:00)
[2019-04-14] MEDS: SERTRALINE HCL 50 MG TAB PO SCH (09:53)
[2019-04-14] MEDS: FOLIC ACID 1 MG TAB PO SCH (09:53)
[2019-04-14] MEDS: ENOXAPARIN 40 MG/0.4 ML SYRINGE (J1650) SC SCH (09:53)
[2019-04-14] MEDS: PANTOPRAZOLE 40MG TAB (PROTONIX) PO SCH ×2 (09:53→20:49)
[2019-04-14] MEDS: MULTIVITAMINS/MINERALS THERAP 1 TAB PO SCH (09:53)
--- NOTE | 2019-04-14 11:44 | IPN ---
DATE: 04/13/2019 The patient is status post laparotomy with exploration of abdominal cavity. He has had some chronic ascites fluid that is been draining since his operation and overall he is presenting now with a new pneumonia yesterday. He is being treated for this. His white count came down to 12,000 today, and he states that his respiratory status is much better today than it was yesterday. He says he is eating. He is on a full liquid diet but does not sound as though he is eating all that much. He has been on some TPN. Otherwise, he has been relatively stable from a surgical standpoint. Limiting his examination to his abdomen, given the multiple consultants involved, his abdomen is soft, nontender, nondistended. His incision is clean, dry, healing without any erythema, drainage or discharge. His RAJESH drain is serous and does not appear purulent or have any enteric fluid. IMPRESSION AND PLAN: From a GI standpoint, I do feel that we can progress his diet as tolerated. From a nutrition standpoint, we can either proceed with a calorie count or just possibly decrease/discontinue his TPN. I will defer to the hospitalist who has been evaluating him and ordering this, but I do feel that he can probably either have his TPN decreased at least today and possibly discontinued tomorrow or discontinued if he seems to be doing well with his breakfast / lunch. Otherwise, continue with supportive care. I anticipate if we have continued improvement, possibly we will transfer over to the medicine service over the next 24 to 48 hours. KERON
[2019-04-14] MEDS: SODIUM CHLORIDE HYPERTONIC 3% 15ML NEB SOL INH SCH ×2 (13:43→19:47)
--- NOTE | 2019-04-14 15:09 | IPN ---
DATE: 04/14/2019 Mr. Salas was seen and examined at the bedside this morning. He had issue overnight with hypotension with excessive diuresis and critical care team felt that it was difficult to diurese him overnight and therefore they backed off on his Lasix. Otherwise, the patient reports that he is breathing well. He is currently using the BiPAP as his saturations were low this morning. He reports that he is eating and drinking well. Urinating well and having normal bowel movements. PHYSICAL EXAMINATION: VITAL SIGNS: Temperature is 97.5, pulse 60, respiratory rate 16, blood pressure 104/55. He is saturating 90% on 25 liters of Vapotherm with 80% FiO2. His input and output overnight, he is net negative 2 liters. He has about 2100 mL yesterday and 2700 mL of urine output between those two days. GENERAL: He is laying in bed, using the BiPAP. He is calm, cooperative and in no acute distress. Head is normocephalic, atraumatic. HEENT: Pupils are equal, round and reactive to light. His extraocular movements are intact. Mucous membranes are moist. NECK: Supple with no thyromegaly and no lymphadenopathy. CHEST: He has even chest rise. LUNGS: He has decreased breath sounds bilaterally. Possibly some crackles heard at the bases bilaterally. Otherwise, no other adventitious breath sounds appreciated. CARDIOVASCULAR: Regular rate and rhythm with no murmurs, rubs or gallops. Normal S1, S2. ABDOMEN: Soft, nontender to palpation with positive bowel sounds. Surgical scar with vidal and is clean, dry and intact. No signs of infection or erythema. He has no masses. No organomegaly. EXTREMITIES: He has no clubbing, cyanosis or edema in his lower and upper extremities. SKIN: He has no new lesions. LYMPHATICS: He has no enlarged lymph nodes. PSYCHIATRIC: He is awake, alert, oriented times three with normal mood and normal affect. NEUROLOGIC: Cranial nerves II through XII are intact with no obvious focal deficits. LABORATORIES: Today his CBC demonstrates a white blood cell count of 12.0, down from 16 yesterday, hemoglobin of 8, hematocrit 26.8, and a platelet count of 40, down from 48 yesterday. Chemistries demonstrate a sodium of 144, potassium 3.6, carbon dioxide of 35, BUN 32, and creatinine 0.55. His calcium is low at 7.5. C-reactive protein is 7.9. Heparin induced thrombocytopenia (HIT) antibody was drawn and was found to be 0.143, which is within the normal range. Stool occult blood was done, which was found to be positive. The patient has no other imaging or laboratories done. ASSESSMENT: This is a 74-year-old man with a history of gastrointestinal bleed and chronic obstructive pulmonary disease (COPD), who presented with severe abdominal pain and was found to have perforated viscus. He is status post exploratory laparotomy, postoperative day #7, now with a positive peritoneal culture for Citrobacter and Escherichia (E) coli . Postoperative care has been complicated by hypotension and increasing oxygen requirements with difficulty with diuresis and requiring a longer stay in the intensive care unit (ICU). PLAN: 1. Perforated viscus. Continue Zosyn. It appears his white count has gone down today. We will continue to wait to see the results of fungal smear and culture and we will treat accordingly. 2. Hypoxia with increased oxygen requirement. Would recommend to this patient to continue with diuresis, as it does appear that he is fluid overloaded. Also, would suggest aggressive pulmonary toilet with incentive spirometry and Acapella as per respiratory therapy. Thank you for this consultation. We are happy to answer any questions that arise in this patient's care. KERON
--- NOTE | 2019-04-14 15:31 | IPNPDOC ---
Date Seen The patient was seen on 04/14/19. Progress Note SUBJECTIVE: Patient seen and examined at bedside, per hospitalist team he continues to his oxygen saturations continue to desaturate off of bipap even with vapotherm. He had another episode of hypotension that improved following a fluid bolus overnight. He has been intermittently placed on bipap and vapotherm in the last 24 hours, CXR showing possible pleural effusion, infiltrate, and collapse of left lower lobe, patient is continued in the ICU for possible bipap consideration and use. Patient is awake and alert. Has some desaturation on vapotherm and oxygenation improves when lying with left side up. Brief Hospital Course: Patient is a 74-year-old male who presented to the emergency department on 04/08/2019 with complaint of abdominal pain. CT of the abdomen in the ER which was significant for small amount of free intraperitoneal air. Patient was taken to the OR emergently overnight for ex-lap, however, no bowel perforation identified. Given surgical and CT findings patient was suspected posterior duodenal perforation. After surgery patient was lethargic and unable to be weaned from the ventilator and therefore is transferred to the ICU. Patient was successfully extubated on the morning of 04/09/2019. Patient also noted to be hypoglycemia requiring supplementation with glucose and clinical dehydration requiring IV fluid, however this resolved shortly after admission. Patient was started on TPN on 04/09/2021 due to baseline severe protein calorie malnutrition. Patient was initially transferred to the floor on 04/10/2019 with progression of his care, diet advanced to full liquid diet, and NG tube discontinued. On the morning of 04/13/2019 patient with mild hypotension responsive to IV fluids and acute on chronic hypercapnic hypoxic respiratory failure requiring transfer to the ICU with need for BiPAP. Patient was transitioned from BiPAP to Vapotherm. He was also noted to have urinary retention and Diaz was subsequently reinserted. OBJECTIVE: PHYSICAL EXAMINATION: VITAL SIGNS: Please see below. GENERAL: Alert and oriented, in no acute distress. Patient appears cachectic. HENT: Normocephalic, atraumatic, temporal muscle wasting. EYES: PERRL, no scleral icterus CARDIOVASCULAR: RRR, normal S1+S2, 3+ pitting edema in bilateral lower extremities RESPIRATORY: Diminished breath sounds bilaterally, no wheezes, non labored breathing on vapotherm, scattered rhonchi throughout. ABDOMINAL: Soft, nontender, hypoactive bowel sounds, bandages in place, RAJESH turning in place EXTREMITIES: ROM normal, no extremity cyanosis, edema as noted above. NEUROLOGICAL: No focal deficits noted, patient is AOx3 SKIN: Warm and dry LABORATORY DATA: Please see below. IMAGING: Independently visualize chest x-ray which shows partial left lower lobe collapse. ASSESSMENT/PLAN: #Acute on chronic hypoxic hypercapnic respiratory failure - hx severe COPD with chronic hypoxemic respiratory failure. Worsening hypoxemia due to possible pneumonia with atelectasis and mucous plugging resulting in left lower lobe lung collapse - BiPAP when necessary or QHS, will use Vapotherm and titrate to keep SPO2 greater than 88%. Will attempt to maintain patient on vapotherm during the day to facilitate mucous clearance - DuoNeb nebs with added hypertonic saline every 6 hours, continue chest PT with percussion vest if tolerated for mucous clearance - will check ABG later today. - Sputum culture if able #Suspected posterior duodenal perforation - Status post exploratory laparoscopy with washout on 04/09/2019 - Peritoneal fluid cultures equal Citrobacter, Escherichia coli - Continue antibiotics with Zosyn (04/09-present) - Protonix IV twice a day, Carafate - Incentive spirometer - Patient receiving TPN - Gen. surgery following, recommendations appreciated #Sepsis - Likely secondary to suspected duodenal perforation, improving. - Patient with new infiltrate in JANESSA and atelectasis/consolidation in LLL, possible pneumonia vs mucous plugging - Continue Zosyn per ID recommendations - will check sputum culture #Thrombocytopenia, worsening - Likely 2/2 poor nutritional status, infection, and antibiotics producing platelet lowering effect. - Hit Ab negative - Monitor closely for bleeding - Plt count<50, lovenox on hold. #Diastolic heart failure - Grade 1 diastolic heart failure noted on echocardiogram in February 2019 (performed outpatient). - Patient is net negative 2L so far today, he continues to have 3+ pitting edema, we have discontinued his other antihypertensives in light of his hypotensive episodes, despite his TPN he is still pretty malnourished and may require albumin in the future to assist with further diuresis. #Urinary retention - Diaz cather in place - UA negative - Continue tamsulosin 0.4 mg daily #COPD without exacerbation - DuoNeb every 6 hours with hypertonic saline now added, continue chest PT, #Pulmonary nodule - 7 mm left upper lung nodule incidentally noted on CT of the chest, given significant smoking history will require outpatient follow-up and repeat CT scan in 6-12 months Diet: Full liquid diet with supplemental TPN @60 mL per hour. Decreased fat emulsion to 10 mL per hour given full liquid diet intake DVT/GI prophylaxis. Lovenox subcutaneous on hold for low platelet count, Protonix twice a day for suspected duodenal perforation L/T/D: RAJESH drain (04/09), Diaz reinserted (04/13) Drips: TPN@60 mL per hour Code Status: Full Code. Daughter (Shira) to be surrogate-decision maker. Dispo: Continue to monitor in the ICU overnight. Titrate Vapotherm to keep SPO2 greater than 88%. VS, I&O, 24H, Fishbone Vital Signs/I&O Vital Signs Date Time Temp Pulse Resp B/P (MAP) Pulse Ox O2 Delivery O2 Flow Rate FiO2 04/14/19 13:44 62 04/14/19 13:20 90 HVNI-Vapotherm 25.0 80 04/14/19 12:01 97.5 16 104/55 (71) I&O- Last 24 Hours up to 6 AM 04/14/19 06:00 Intake Total 2965 ml Output Total 3990 ml Balance -1025 ml Laboratory Data 24H LABS Laboratory Tests 2 04/13/19 17:38: Bedside Glucose (Misc Panel) 110 04/13/19 17:56: Urine Color YELLOW, Urine Appearance CLEAR, Urine pH 5.0, Urine Specific [place] 1.010, Urine Protein NEGATIVE, Urine Glucose (UA) NEGATIVE, Urine Ketones NEGATIVE, Urine Blood NEGATIVE, Urine Nitrite NEGATIVE, Urine Bilirubin NEGATIVE, Urine Urobilinogen 0.2, Urine Leukocyte Esterase NEGATIVE, Urine WBC (Auto) 1, Urine RBC (Auto) 4H, Urine Hyaline Casts (Auto) 3, Urine Bacteria (Auto) 1+H, Urine Squamous Epithelial Cells 0, Urine Mucus (Auto) SMALL, Urine Sperm (Auto) 04/13/19 23:23: Bedside Glucose (Misc Panel) 86 04/14/19 04:17: Immature Granulocyte % (Auto) 0.8, Neutrophils (%) (Auto) 94.2H, Lymphocytes (%) (Auto) 1.4L, Monocytes (%) (Auto) 3.5, Eosinophils (%) (Auto) 0.0, Basophils (%) (Auto) 0.1, Neutrophils # (Auto) 11.3H, Lymphocytes # (Auto) 0.2L, Monocytes # (Auto) 0.4, Eosinophils # (Auto) 0.0, Basophils # (Auto) 0.0, Nucleated Red Blood Cells % (auto) 0.2H, Immature Platelet Fraction 15.0H, Anion Gap 4L, Glomerular Filtration Rate > 60.0, Calcium Level 7.5L, Magnesium Level 1.8, C- Reactive Protein, Quantitative 7.90H 04/14/19 05:16: Bedside Glucose (Misc Panel) 122H 04/14/19 13:17: Bedside Glucose (Misc Panel) 93 CBC/BMP Laboratory Tests 04/14/19 04:17 Microbiology Microbiology 04/14/19 Stool Occult Blood (GEOVANNA) - Final, Complete 04/09/19 Fungal Smear, Received Pending 04/09/19 Fungal Culture, Received Pending 04/09/19 Gram Stain - Final, Complete 04/09/19 Body Fluid Culture - Final, Complete Citrobacter Freundii Escherichia Coli 04/09/19 Blood Culture - Final, Complete NO GROWTH AFTER 5 DAYS 04/09/19 Blood Culture - Final, Complete NO GROWTH AFTER 5 DAYS GME ATTESTATION GME ATTESTATION My faculty preceptor for this patient encounter was physically present during the encounter and was fully available. All aspects of the patient interview, examination, medical decision making process, and medical care plan development were reviewed and approved by the faculty preceptor. The faculty preceptor is aware and concurs with the plan as stated in the body of this note and will attest to such by his/her cosignature. ATTENDING NOTE I, Brayan Vigil, have conducted independent examination and history of the patient and agree with the plan as detailed above. YNES RITTER DO Apr 14, 2019 15:31 BRAYAN VIGIL MD Apr 15, 2019 18:04
--- NOTE | 2019-04-14 16:33 | IPNPDOC ---
Subjective Date Seen The patient was seen on 04/14/19. Subjective Chief Complaint/HPI Required bipap overnight due to hypoxia. Black stools this am, lovenox stopped. Alert this morning. No complaints. Objective Physical Examination General Exam: Positive: Alert, Cooperative, No Acute Distress Eye Exam: Positive: PERRLA; Negative: Sclera icteric ENT Exam: Positive: Mucous membr. moist/pink, Pharynx Normal Neck Exam: Negative: JVD, thyromegaly Chest Exam: Positive: Clear to auscultation Heart Exam: Positive: Rate Normal Abdomen Exam: Positive: Soft; Negative: Normal bowel sounds, Tenderness Extremity Exam: Negative: Edema Skin Exam: Negative: Rash Neuro Exam: Positive: Normal Speech Psych Exam: Positive: Mood NL; Negative: Anxiety Assessment /Plan Assessment # Suspected posterior duodenal perforation. Status post exploratory laparotomy the night of 04/08/[address] Gonzales, postoperative day #5. - mgmt per gen surgery # Acute on chronic hypercarbic and hypoxic respiratory failure, status post intubation with successful extubation. # Chronic COPD on Home oxygen - fluctuating b/w hi-isaias and bipap # GI bleed - tx if hgb drops further - lovenox stopped' - not candidate for GI eval at this time with respiratory issues. # Sepsis. Secondary to bowel perforation. - Resolved. - Empiric zosyn, ID note reviewed. - Beta-(1,3)-D-Glucan 39 - cx + citrobacter and e.coli # Acute Thrombocytopenia (2/2 acute illness) - heparin-induced platelet antibodies are normal - may resume lovenox when platelet counts rebound # Pulmonary nodule. 7 mm left upper lung nodule - Outpatient follow-up with pulmonology # Chronic alcoholism - [facility] protocol # Protein calorie malnutrition, severe. - Currently on TPN via PICC line managed by general surgery. # DVT prophylaxis: Lovenox held due to low platelets Plan/VTE VTE Prophylaxis Ordered?: Yes VTE Exclusion Mechanical Proph: N/A:VTE Prophy Ordered VTE Exclusion Pharmacological: Thrombocytopenia VS, I&O, 24H, Fishbone Vital Signs/I&O Vital Signs Date Time Temp Pulse Resp B/P (MAP) Pulse Ox O2 Delivery O2 Flow Rate FiO2 04/14/19 16:00 97.3 66 20 90/53 (65) 98 HVNI-Vapotherm 25.0 50 I&O- Last 24 Hours up to 6 AM 2/28/20 06:00 Intake Total 2965 ml Output Total 3990 ml Balance -1025 ml Laboratory Data 24H LABS Laboratory Tests 2 04/13/19 17:38: Bedside Glucose (Misc Panel) 110 04/13/19 17:56: Urine Color YELLOW, Urine Appearance CLEAR, Urine pH 5.0, Urine Specific [place] 1.010, Urine Protein NEGATIVE, Urine Glucose (UA) NEGATIVE, Urine Ketones NEGATIVE, Urine Blood NEGATIVE, Urine Nitrite NEGATIVE, Urine Bilirubin NEGATIVE, Urine Urobilinogen 0.2, Urine Leukocyte Esterase NEGATIVE, Urine WBC (Auto) 1, Urine RBC (Auto) 4H, Urine Hyaline Casts (Auto) 3, Urine Bacteria (Auto) 1+H, Urine Squamous Epithelial Cells 0, Urine Mucus (Auto) SMALL, Urine Sperm (Auto) 04/13/19 23:23: Bedside Glucose (Misc Panel) 86 04/14/19 04:17: Immature Granulocyte % (Auto) 0.8, Neutrophils (%) (Auto) 94.2H, Lymphocytes (%) (Auto) 1.4L, Monocytes (%) (Auto) 3.5, Eosinophils (%) (Auto) 0.0, Basophils (%) (Auto) 0.1, Neutrophils # (Auto) 11.3H, Lymphocytes # (Auto) 0.2L, Monocytes # (Auto) 0.4, Eosinophils # (Auto) 0.0, Basophils # (Auto) 0.0, Nucleated Red Blood Cells % (auto) 0.2H, Immature Platelet Fraction 15.0H, Anion Gap 4L, Glomerular Filtration Rate > 60.0, Calcium Level 7.5L, Magnesium Level 1.8, C- Reactive Protein, Quantitative 7.90H 04/14/19 05:16: Bedside Glucose (Misc Panel) 122H 04/14/19 13:17: Bedside Glucose (Misc Panel) 93 CBC/BMP Laboratory Tests 04/14/19 04:17 Microbiology Microbiology 04/14/19 Stool Occult Blood (GEOVANNA) - Final, Complete 04/09/19 Fungal Smear, Received Pending 04/09/19 Fungal Culture, Received Pending 04/09/19 Gram Stain - Final, Complete 04/09/19 Body Fluid Culture - Final, Complete Citrobacter Freundii Escherichia Coli 04/09/19 Blood Culture - Final, Complete NO GROWTH AFTER 5 DAYS 04/09/19 Blood Culture - Final, Complete NO GROWTH AFTER 5 DAYS SHIMA ANDRADE MD Apr 14, 2019 16:23
[2019-04-14 17:19] LABS: ABG BASE EXCESS 10.8 (-2.0-2.0); ABG PARTIAL PRESSURE O2 53.5 mmHg (75.0-100.0); ABG STANDARD HCO3 34.3 MEQ/L (22.0-26.0); ABG TOTAL CO2 40.1 MEQ/L (23.0-31.0); ABG pH (ARTERIAL) 7.359 UNITS (7.350-7.450)
[2019-04-14 17:22] LABS: ABG PARTIAL PRESSURE CO2 68.9 mmHg (35.0-45.0)
[2019-04-14] MEDS ORDERED: AMINO AC/ELECTROLYTE/DEX/CALC 2,000 ML IV SCH (18:00)
[2019-04-14] MEDS ORDERED: FAT EMULSION IV 20% 500 ML IV SCH (18:00)
[2019-04-14] MEDS: OLANZapine 5 MG TAB PO SCH (20:49)
[2019-04-14] MEDS: TAMSULOSIN 0.4 MG CAP PO SCH (20:50)
[2019-04-14] MEDS: ATORVASTATIN 20 MG TAB PO SCH (20:50)
[2019-04-15] VITALS (19 sets, daily range): BP systolic 77–152; BP diastolic 48–73
[2019-04-15] MEDS: IPRATROPIUM 0.5MG/ALBUTEROL 2.5MG INH SOL UD 3ML (DUONEB)(J7620) NEB SCH ×4 (02:09→19:45)
[2019-04-15] MEDS: SODIUM CHLORIDE HYPERTONIC 3% 15ML NEB SOL INH SCH ×4 (02:10→19:45)
[2019-04-15] MEDS: PIPERACILLIN/TAZOBACTAM SOD 3.375 GM in D5W MINI-BAG PLUS 50 ML IV SCH ×4 (02:55→21:22)
[2019-04-15 04:50] LABS: HEMATOCRIT 25.9 % (42.0-52.0); MEAN CORPUSCULAR HEMOGLOBIN 28.2 pg (27.0-33.0); MEAN CORPUSCULAR HGB CONC 30.9 g/dl (32.0-36.5); MEAN CORPUSCULAR VOLUME 91.2 fl (80.0-96.0); RED BLOOD COUNT 2.84 10^6/uL (4.30-6.10); WHITE BLOOD COUNT 9.1 10^3/uL (4.0-10.0)
[2019-04-15 04:51] LABS: PLATELET COUNT, AUTOMATED 42 10^3/uL (150-450)
[2019-04-15 05:08] LABS: BLOOD UREA NITROGEN 28 MG/DL (7-18); CALCIUM LEVEL 7.6 MG/DL (8.8-10.2); CARBON DIOXIDE LEVEL 42 MEQ/L (21-32); CHLORIDE LEVEL 101 MEQ/L (98-107); GLOMERULAR FILTRATION RATE > 60.0 (>42); GLUCOSE, FASTING 104 MG/DL (70-100); MAGNESIUM LEVEL 1.4 MG/DL (1.8-2.4); SODIUM LEVEL 145 MEQ/L (136-145)
[2019-04-15 05:17] LABS: LYMPHOCYTES 5 % (16-44); MONOCYTES 1 % (0-5); NEUTROPHILS 94 % (28-66); PLATELET ESTIMATE MARKED DECREASE (NORMAL)
[2019-04-15 05:46] LABS: ABG HCO3 43.6 MEQ/L (22.0-26.0); ABG O2 SATURATION 98.4 % (95.0-99.0); ABG PARTIAL PRESSURE O2 111.1 mmHg (75.0-100.0); ABG STANDARD HCO3 39.7 MEQ/L (22.0-26.0); ABG pH (ARTERIAL) 7.371 UNITS (7.350-7.450)
[2019-04-15] MEDS: SODIUM CHLORIDE 0.9% INJ 10 ML SYR IV SCH ×2 (06:00→17:25)
[2019-04-15] MEDS ORDERED: MAG SULF 1GM/100ML (MAG RUN) 1 GM in IV 1 EA IV ONE (06:00)
[2019-04-15] MEDS: FUROSEMIDE 40 MG/4 ML VIAL (J1940) IV SCH (06:00)
[2019-04-15] MEDS ORDERED: POTASSIUM CHLORIDE 10 MEQ SR TABLET PO ONE ×2 (06:00→09:00)
[2019-04-15] MEDS: HumaLOG INSULIN (NovoLOG) PER UNIT SC SCH ×4 (07:22→18:00)
[2019-04-15] MEDS: SENOKOT S TAB PO SCH ×2 (09:00→21:00)
[2019-04-15] MEDS: FOLIC ACID 1 MG TAB PO SCH (09:52)
[2019-04-15] MEDS: MAGNESIUM OXIDE 400 MG TAB (MAG-OX) PO SCH ×2 (09:52→21:25)
[2019-04-15] MEDS: SUCRALFATE 1 GM TAB PO SCH ×4 (09:53→21:26)
[2019-04-15] MEDS: SERTRALINE HCL 50 MG TAB PO SCH (09:53)
[2019-04-15] MEDS: PANTOPRAZOLE 40MG TAB (PROTONIX) PO SCH ×2 (09:53→21:25)
[2019-04-15] MEDS: MULTIVITAMINS/MINERALS THERAP 1 TAB PO SCH (09:53)
--- NOTE | 2019-04-15 11:27 | IPNPDOC ---
Date Seen The patient was seen on 04/15/19. Progress Note SUBJECTIVE: Patient seen and examined at bedside, no acute events overnight, patient declined wearing vapotherm last night and did fine with his bipap and left it on throughout the night. This morning he is seen wearing his vapotherm without complaint though. He continues to be alert and oriented as he did yesterday and is seen in a chair at bed side. He has no complaints at this time. Brief Hospital Course: Patient is a 74-year-old male who presented to the emergency department on 04/08/2019 with complaint of abdominal pain. CT of the abdomen in the ER which was significant for small amount of free intraperitoneal air. Patient was taken to the OR emergently overnight for ex-lap, however, no bowel perforation identified. Given surgical and CT findings patient was suspected posterior duodenal perforation. After surgery patient was lethargic and unable to be weaned from the ventilator and therefore is transferred to the ICU. Patient was successfully extubated on the morning of 04/09/2019. Patient also noted to be hypoglycemia requiring supplementation with glucose and clinical dehydration requiring IV fluid, however this resolved shortly after admission. Patient was started on TPN on 04/09/2021 due to baseline severe protein calorie malnu trition. Patient was initially transferred to the floor on 04/10/2019 with progression of his care, diet advanced to full liquid diet, and NG tube discontinued. On the morning of 04/13/2019 patient with mild hypotension responsive to IV fluids and acute on chronic hypercapnic hypoxic respiratory failure requiring transfer to the ICU with need for BiPAP. Patient was transitioned from BiPAP to Vapotherm. He was also noted to have urinary retention and Diaz was subsequently reinserted. OBJECTIVE: PHYSICAL EXAMINATION: VITAL SIGNS: Please see below. GENERAL: Alert and oriented, in no acute distress. Patient appears cachectic. HENT: Normocephalic, atraumatic, temporal muscle wasting. EYES: PERRL, no scleral icterus CARDIOVASCULAR: RRR, normal S1+S2, 1+ pitting edema in bilateral lower extremities, significantly improved from day prior. RESPIRATORY: Diminished breath sounds bilaterally, no wheezes, non labored breathing on vapotherm, scattered rhonchi throughout. No use of accessory respiratory muscles. ABDOMINAL: Soft, nontender, hypoactive bowel sounds, bandages in place, RAJESH turning in place EXTREMITIES: ROM normal, no extremity cyanosis, edema as noted above. NEUROLOGICAL: No focal deficits noted, patient is AOx3 SKIN: Warm and dry LABORATORY DATA: Please see below. IMAGING: Independently visualize chest x-ray which shows partial left lower lobe collapse. ASSESSMENT/PLAN: #Acute on chronic hypoxic hypercapnic respiratory failure - severe COPD with chronic hypoxemic respiratory failure with acute worsening likely due to possible pneumonia vs atelectasis with mucous plugging resulting in left lower lobe lung collapse and pulmonary edema. - BiPAP when necessary or QHS, repeat ABG this AM showing mixed respiratory aci dosis with metabolic alkalosis likely 2/2 diuresis, patient is net negative ~3.5 liters in the past 24 hours, will hold todays lasix doses; will continue using Vapotherm and titrate to keep SPO2 greater than 88%. cont to wean down FiO2 - cont to encourage mucous clearance with acapella and nebulizer treatments. will keep patient right side down when possible. - cont with DuoNeb nebs with hypertonic saline every 6 hours, continue chest PT with percussion vest as tolerated - OOB to chair - Sputum culture if able #Suspected posterior duodenal perforation - Status post exploratory laparoscopy with washout on 04/09/2019 - Peritoneal fluid cultures equal Citrobacter, Escherichia coli - Continue antibiotics with Zosyn (04/09-present) - Protonix IV twice a day, Carafate - Incentive spirometer - Patient receiving TPN - Gen. surgery following, recommendations appreciated. advanced diet #Sepsis - Likely secondary to suspected duodenal perforation, improving - Continue Zosyn per ID recommendations - CXR with new infiltrate in JANESSA and atelectasis/consolidation in LLL. will repeat CXR in AM. repeat procalcitonin #Thrombocytopenia, worsening - Likely 2/2 poor nutritional status, infection, and antibiotics producing p latelet lowering effect. - Hit Ab negative - Monitor closely for bleeding - Plt count<50, continue holding lovenox #Diastolic heart failure - Grade 1 diastolic heart failure noted on echocardiogram in February 2019 (performed outpatient). -Patient diuresed well over past 24 hours and his edema is significantly improved, will hold lasix doses today so we don't dry him out. #Urinary retention - Diaz cather in place - UA negative - Continue tamsulosin 0.4 mg daily #COPD without exacerbation - DuoNeb Q6H with hypertonic saline, continue chest PT, #Pulmonary nodule - 7 mm left upper lung nodule incidentally noted on CT of the chest, given significant smoking history will require outpatient follow-up and repeat CT scan in 6-12 months Diet: diet advanced, cont with supplemental TPN and reduce to 50 mL per hour. will cont to reduce if improved oral intake. DVT/GI prophylaxis. Lovenox subcutaneous on hold for low platelet count, Proton ix twice a day for suspected duodenal perforation L/T/D: RAJESH drain (04/09), Diaz reinserted (04/13) Code Status: Full Code. Daughter (Shira) to be surrogate-decision maker. Dispo: Continue to monitor in the ICU overnight. Titrate Vapotherm to keep SPO2 greater than 88%. VS, I&O, 24H, Fishbone Vital Signs/I&O Vital Signs Date Time Temp Pulse Resp B/P (MAP) Pulse Ox O2 Delivery O2 Flow Rate FiO2 04/15/19 08:00 50 04/15/19 07:45 65 04/15/19 03:00 111/63 (79) 100 NIPPV (BIPAP/CPAP) 04/15/19 01:00 25.0 04/15/19 00:00 97.9 20 I&O- Last 24 Hours up to 6 AM 04/15/19 06:00 Intake Total 1820 ml Output Total 4565 ml Balance -2745 ml Laboratory Data 24H LABS Laboratory Tests 2 04/14/19 13:17: Bedside Glucose (Misc Panel) 93 04/14/19 17:00: Blood Gas Bicarbonate Standard 34.3H, Arterial Blood pH 7.359, Arterial Blood Partial Pressure CO2 68.9*H, Arterial Blood Partial Pressure O2 53.5L, Arterial Blood Total CO2 40.1H, Arterial Blood HCO3 38.0H, Arterial Blood Base Excess 10.8H, Arterial Blood Oxygen Saturation 87.0L 04/14/19 17:57: Bedside Glucose (Misc Panel) 113H 04/15/19 01:30: Bedside Glucose (Misc Panel) 96 04/15/19 04:18: Neutrophils (%) (Auto) , Lymphocytes # (Auto) , Nucleated Red Blood Cells % (auto) 0.0, Neutrophils 94H, Lymphocytes (Manual) 5L, Monocytes (Manual) 1, Platelet Estimate MARKED DECREASE, Immature Platelet Fraction 14.9H, Anion Gap 2L, Glomerular Filtration Rate > 60.0, Calcium Level 7.6L, Magnesium Level 1.4L 04/15/19 05:22: Blood Gas Bicarbonate Standard 39.7H, Arterial Blood pH 7.371, Arterial Blood Partial Pressure CO2 77.0*H, Arterial Blood Partial Pressure O2 111.1H, Arterial Blood Total CO2 46.0H, Arterial Blood HCO3 43.6H, Arterial Blood Base Excess 16.0H, Arterial Blood Oxygen Saturation 98.4 04/15/19 06:51: Bedside Glucose (Misc Panel) 126H CBC/BMP Laboratory Tests 04/15/19 04:18 Microbiology Microbiology 04/14/19 Stool Occult Blood (GEOVANNA) - Final, Complete 04/09/19 Fungal Smear, Received Pending 04/09/19 Fungal Culture, Received Pending 04/09/19 Gram Stain - Final, Complete 04/09/19 Body Fluid Culture - Final, Complete Citrobacter Freundii Escherichia Coli 04/09/19 Blood Culture - Final, Complete NO GROWTH AFTER 5 DAYS 04/09/19 Blood Culture - Final, Complete NO GROWTH AFTER 5 DAYS GME ATTESTATION GME ATTESTATION My faculty preceptor for this patient encounter was physically present during the encounter and was fully available. All aspects of the patient interview, examination, medical decision making process, and medical care plan development were reviewed and approved by the faculty preceptor. The faculty preceptor is aware and concurs with the plan as stated in the body of this note and will attest to such by his/her cosignature. ATTENDING NOTE I, Brayan Vigil, have conducted an independent examination of the patient and agree with the plan as detailed above. YNES RITTER DO Apr 15, 2019 11:27 BRAYAN VIGIL MD Apr 15, 2019 18:21
--- NOTE | 2019-04-15 11:40 | IPNPDOC ---
Subjective Date Seen The patient was seen on 04/15/19. Subjective Chief Complaint/HPI Alert and oriented, presently on Hi-flow nasal cannula, did desat overnight, felt to be due to positioning. No further dark stools. BP soft overnight, lasix stopped. Objective Physical Examination General Exam: Positive: Alert, Cooperative, No Acute Distress Eye Exam: Positive: PERRLA; Negative: Sclera icteric ENT Exam: Positive: Mucous membr. moist/pink, Pharynx Normal Neck Exam: Negative: JVD, thyromegaly Chest Exam: Positive: Clear to auscultation Heart Exam: Positive: Rate Normal Abdomen Exam: Positive: Soft; Negative: Normal bowel sounds, Tenderness Extremity Exam: Negative: Edema Skin Exam: Negative: Rash Neuro Exam: Positive: Normal Speech Psych Exam: Positive: Mood NL; Negative: Anxiety Assessment /Plan Assessment # Suspected posterior duodenal perforation. Status post exploratory laparotomy the night of 04/08/[address] Gonzales, postoperative day #5. - mgmt per gen surgery # Acute on chronic hypercarbic and hypoxic respiratory failure, status post intubation with successful extubation. # Chronic COPD on Home oxygen - fluctuating b/w hi-isaias and bipap # GI bleed - tx if hgb drops further - lovenox stopped - not candidate for GI eval at this time with respiratory issues. - IV protonix bid # Sepsis. Secondary to bowel perforation. - Resolved. - Empiric zosyn, ID note reviewed. - Beta-(1,3)-D-Glucan 39 - cx + citrobacter and e.coli # Acute Thrombocytopenia (2/2 acute illness) - heparin-induced platelet antibodies are normal - may resume lovenox when platelet counts rebound - Plts marginally higher today # Pulmonary nodule. 7 mm left upper lung nodule - Outpatient follow-up with pulmonology # Chronic alcoholism - [facility] protocol # Protein calorie malnutrition, severe. - Currently on TPN via PICC line managed by general surgery. # DVT prophylaxis: Lovenox held due to low platelets Plan/VTE VTE Prophylaxis Ordered?: Yes VTE Exclusion Mechanical Proph: N/A:VTE Prophy Ordered VTE Exclusion Pharmacological: Thrombocytopenia VS, I&O, 24H, Fishbone Vital Signs/I&O Vital Signs Date Time Temp Pulse Resp B/P (MAP) Pulse Ox O2 Delivery O2 Flow Rate FiO2 04/15/19 08:00 50 04/15/19 07:45 65 04/15/19 03:00 111/63 (79) 100 NIPPV (BIPAP/CPAP) 04/15/19 01:00 25.0 04/15/19 00:00 97.9 20 I&O- Last 24 Hours up to 6 AM 04/15/19 06:00 Intake Total 1820 ml Output Total 4565 ml Balance -2745 ml Laboratory Data 24H LABS Laboratory Tests 2 04/14/19 13:17: Bedside Glucose (Misc Panel) 93 04/14/19 17:00: Blood Gas Bicarbonate Standard 34.3H, Arterial Blood pH 7.359, Arterial Blood Partial Pressure CO2 68.9*H, Arterial Blood Partial Pressure O2 53.5L, Arterial Blood Total CO2 40.1H, Arterial Blood HCO3 38.0H, Arterial Blood Base Excess 10.8H, Arterial Blood Oxygen Saturation 87.0L 04/14/19 17:57: Bedside Glucose (Misc Panel) 113H 04/15/19 01:30: Bedside Glucose (Misc Panel) 96 04/15/19 04:18: Neutrophils (%) (Auto) , Lymphocytes # (Auto) , Nucleated Red Blood Cells % (auto) 0.0, Neutrophils 94H, Lymphocytes (Manual) 5L, Monocytes (Manual) 1, Platelet Estimate MARKED DECREASE, Immature Platelet Fraction 14.9H, Anion Gap 2L, Glomerular Filtration Rate > 60.0, Calcium Level 7.6L, Magnesium Level 1.4L 04/15/19 05:22: Blood Gas Bicarbonate Standard 39.7H, Arterial Blood pH 7.371, Arterial Blood Partial Pressure CO2 77.0*H, Arterial Blood Partial Pressure O2 111.1H, Arterial Blood Total CO2 46.0H, Arterial Blood HCO3 43.6H, Arterial Blood Base Excess 16.0H, Arterial Blood Oxygen Saturation 98.4 04/15/19 06:51: Bedside Glucose (Misc Panel) 126H CBC/BMP Laboratory Tests 04/15/19 04:18 Microbiology Microbiology 04/14/19 Stool Occult Blood (GEOVANNA) - Final, Complete 04/09/19 Fungal Smear, Received Pending 04/09/19 Fungal Culture, Received Pending 04/09/19 Gram Stain - Final, Complete 04/09/19 Body Fluid Culture - Final, Complete Citrobacter Freundii Escherichia Coli 04/09/19 Blood Culture - Final, Complete NO GROWTH AFTER 5 DAYS 04/09/19 Blood Culture - Final, Complete NO GROWTH AFTER 5 DAYS SHIMA ANDRADE MD Apr 15, 2019 11:40
[2019-04-15] MEDS ORDERED: FAT EMULSION IV 20% 500 ML IV SCH (18:00)
[2019-04-15] MEDS ORDERED: AMINO AC/ELECTROLYTE/DEX/CALC 2,000 ML IV SCH (18:00)
[2019-04-15] MEDS: ATORVASTATIN 20 MG TAB PO SCH (21:25)
[2019-04-15] MEDS: TAMSULOSIN 0.4 MG CAP PO SCH (21:25)
[2019-04-15] MEDS: OLANZapine 5 MG TAB PO SCH (21:26)
[2019-04-16] VITALS (19 sets, daily range): BP systolic 88–132; BP diastolic 50–83; O2SAT 81–96
[2019-04-16] MEDS: SODIUM CHLORIDE HYPERTONIC 3% 15ML NEB SOL INH SCH ×4 (01:54→21:13)
[2019-04-16] MEDS: IPRATROPIUM 0.5MG/ALBUTEROL 2.5MG INH SOL UD 3ML (DUONEB)(J7620) NEB SCH ×4 (01:54→21:13)
[2019-04-16] MEDS: PIPERACILLIN/TAZOBACTAM SOD 3.375 GM in D5W MINI-BAG PLUS 50 ML IV SCH ×4 (02:48→21:43)
[2019-04-16 05:59] LABS: EOS % 0.1 % (0.0-3.0); HEMATOCRIT 25.3 % (42.0-52.0); HEMOGLOBIN 7.9 g/dl (13.5-17.5); LYMPH # 0.3 10^3/uL (1.5-5.0); LYMPH % 4.9 % (24.0-44.0); MEAN CORPUSCULAR HEMOGLOBIN 28.8 pg (27.0-33.0); MEAN CORPUSCULAR HGB CONC 31.2 g/dl (32.0-36.5); MEAN CORPUSCULAR VOLUME 92.3 fl (80.0-96.0); MONO # 0.4 10^3/uL (0.0-0.8); MONO % 5.7 % (0.0-5.0); NEUTROPHILS % 88.7 % (36.0-66.0); RED BLOOD COUNT 2.74 10^6/uL (4.30-6.10); WHITE BLOOD COUNT 6.8 10^3/uL (4.0-10.0)
[2019-04-16] MEDS: HumaLOG INSULIN (NovoLOG) PER UNIT SC SCH ×4 (06:00→17:43)
[2019-04-16 06:05] LABS: PLATELET COUNT, AUTOMATED 45 10^3/uL (150-450)
--- NOTE | 2019-04-16 06:40 | IPN ---
DATE: 04/15/2019 Patient overall has been relatively stable. His white count has come down nicely. He is still not really eating all that well, but he is being moved to a chair at this time when I am in to see him in the intensive care unit with some significant assist. His Cachorro-Infante drain is still draining a bunch of serous drainage. He had some incontinent bowel movements, but otherwise not complaining of any abdominal pain and from a respiratory standpoint he states that his breathing is much better. On his physical exam his abdomen is soft, nondistended, nontender. IMPRESSION AND PLAN: The patient is status post laparotomy with exploration and drainage of the peritoneal cavity. He is doing well from a general surgery standpoint. Advancing his diet as tolerated is reasonable and I do feel that if he is adequately taking p.o. today we can discontinue his total parenteral nutrition (TPN) and once he has stopped draining a significant amount of RAJESH drainage, serous drainage from his abdominal drain will plan on removing that, but at this point, will keep in place. Will continue supportive care and we will continue as per medicine, pulmonary etc.
[2019-04-16 06:43] LABS: BLOOD UREA NITROGEN 24 MG/DL (7-18); CARBON DIOXIDE LEVEL 43 MEQ/L (21-32); CHLORIDE LEVEL 101 MEQ/L (98-107); CREATININE FOR GFR 0.51 MG/DL (0.70-1.30); GLOMERULAR FILTRATION RATE > 60.0 (>42); GLUCOSE, FASTING 100 MG/DL (70-100); MAGNESIUM LEVEL 1.8 MG/DL (1.8-2.4); POTASSIUM SERUM 3.8 MEQ/L (3.5-5.1); SODIUM LEVEL 144 MEQ/L (136-145)
[2019-04-16] MEDS: FUROSEMIDE 40 MG/4 ML VIAL (J1940) IV SCH (06:57)
[2019-04-16] MEDS: SODIUM CHLORIDE 0.9% INJ 10 ML SYR IV SCH ×2 (07:00→17:45)
[2019-04-16] MEDS: SENOKOT S TAB PO SCH ×2 (09:00→21:43)
[2019-04-16] MEDS: PANTOPRAZOLE 40MG TAB (PROTONIX) PO SCH ×2 (09:01→21:43)
[2019-04-16] MEDS: MAGNESIUM OXIDE 400 MG TAB (MAG-OX) PO SCH ×2 (09:02→21:42)
[2019-04-16] MEDS: SERTRALINE HCL 50 MG TAB PO SCH (09:02)
[2019-04-16] MEDS: SUCRALFATE 1 GM TAB PO SCH ×4 (09:02→21:42)
[2019-04-16] MEDS: MULTIVITAMINS/MINERALS THERAP 1 TAB PO SCH (09:02)
[2019-04-16] MEDS: FOLIC ACID 1 MG TAB PO SCH (09:02)
--- NOTE | 2019-04-16 10:22 | REP ---
CHEST, SINGLE VIEW: Single view of the chest is performed and compared with prior study of 04/13/2019. There is new mild pleural fluid in the right minor fissure. Mild hazy opacity in the right lung base is unchanged. Previously noted left upper lobe infiltrate has significantly improved. There is persistent left lower lobe consolidation, but this has improved. Right arm PICC line is noted, and the tip appears to be in the superior vena cava. Heart is not significantly enlarged. There is calcification of the thoracic aorta. Electronically Signed by Nader Robertson MD 04/16/2019 06:32 P
--- NOTE | 2019-04-16 12:01 | IPNPDOC ---
Subjective Date Seen The patient was seen on 04/16/19. Subjective Chief Complaint/HPI pulling at his abdominal vidal this morning with some superficial bleeding. Breathing improved. On nasal cannula Objective Physical Examination General Exam: Positive: Alert, No Acute Distress Eye Exam: Positive: PERRLA; Negative: Sclera icteric ENT Exam: Positive: Mucous membr. moist/pink, Pharynx Normal Neck Exam: Negative: JVD, thyromegaly Chest Exam: Positive: Clear to auscultation Heart Exam: Positive: Rate Normal Abdomen Exam: Positive: Soft; Negative: Normal bowel sounds, Tenderness Extremity Exam: Negative: Clubbing, Cyanosis, Edema Skin Exam: Negative: Rash Neuro Exam: Positive: Normal Speech Psych Exam: Positive: Mood NL; Negative: Anxiety Assessment /Plan Assessment # Suspected posterior duodenal perforation. Status post exploratory laparotomy the night of 04/08/[address] Gonzales, postoperative day #5. - mgmt per gen surgery # Acute on chronic hypercarbic and hypoxic respiratory failure, status post intubation with successful extubation. # Chronic COPD on Home oxygen - cxr improved # GI bleed - tx if hgb drops further - lovenox stopped - not candidate for GI eval at this time with respiratory issues. - IV protonix bid # Sepsis. Secondary to bowel perforation. - Resolved. - Empiric zosyn - Beta-(1,3)-D-Glucan 39 - cx + citrobacter and e.coli # Acute Thrombocytopenia (2/2 acute illness) - heparin-induced platelet antibodies are normal - may resume lovenox when platelet counts rebound - looks to be improving # Pulmonary nodule. 7 mm left upper lung nodule - Outpatient follow-up with pulmonology # Chronic alcoholism - [facility] protocol # Protein calorie malnutrition, severe. - Currently on TPN via PICC line managed by general surgery. # DVT prophylaxis: Lovenox held due to low platelets Plan/VTE VTE Prophylaxis Ordered?: Yes VTE Exclusion Mechanical Proph: N/A:VTE Prophy Ordered VTE Exclusion Pharmacological: Thrombocytopenia VS, I&O, 24H, Fishbone Vital Signs/I&O Vital Signs Date Time Temp Pulse Resp B/P (MAP) Pulse Ox O2 Delivery O2 Flow Rate FiO2 04/16/19 11:00 68 20 101/53 (69) 89 Nasal Cannula 6.0 04/16/19 08:00 97.2 04/16/19 00:26 40 I&O- Last 24 Hours up to 6 AM 04/16/19 06:00 Intake Total 2680 ml Output Total 2425 ml Balance 255 ml Laboratory Data 24H LABS Laboratory Tests 2 04/15/19 12:12: Bedside Glucose (Misc Panel) 87 04/15/19 18:21: Bedside Glucose (Misc Panel) 117H 04/16/19 00:07: Bedside Glucose (Misc Panel) 108 04/16/19 05:40: Immature Granulocyte % (Auto) 0.6, Neutrophils (%) (Auto) 88.7H, Lymphocytes (%) (Auto) 4.9L, Monocytes (%) (Auto) 5.7H, Eosinophils (%) (Auto) 0.1, Basophils (%) (Auto) 0.0, Neutrophils # (Auto) 6.0, Lymphocytes # (Auto) 0.3L, Monocytes # (Auto) 0.4, Eosinophils # (Auto) 0.0, Basophils # (Auto) 0.0, Nucleated Red Blo od Cells % (auto) 0.0, Immature Platelet Fraction 13.1H, Anion Gap 0L, Glomerular Filtration Rate > 60.0, Calcium Level 8.0L, Magnesium Level 1.8 CBC/BMP Laboratory Tests 04/16/19 05:40 Microbiology Microbiology 04/14/19 Stool Occult Blood (GEOVANNA) - Final, Complete 04/09/19 Fungal Smear, Received Pending 04/09/19 Fungal Culture, Received Pending 04/09/19 Gram Stain - Final, Complete 04/09/19 Body Fluid Culture - Final, Complete Citrobacter Freundii Escherichia Coli 04/09/19 Blood Culture - Final, Complete NO GROWTH AFTER 5 DAYS 04/09/19 Blood Culture - Final, Complete NO GROWTH AFTER 5 DAYS SHIMA ANDRADE MD Apr 16, 2019 12:01
--- NOTE | 2019-04-16 15:32 | CCN ---
DATE: 04/16/2019 The patient was seen, examined this morning during bedside rounds. Yesterday during the afternoon, the patient was able to be weaned off of the Vapotherm to regular high-flow nasal cannula oxygen supplementation. He was on bilevel positive airway pressure (BiPAP) overnight. This morning, he feels his breathing has improved. He does continue to have some occasional cough which is sometimes productive of mucus, which he has been able to orally suction himself using the Yankauer. He has not had any fevers or chills overnight. He denies any abdominal pain or nausea or vomiting. He was somewhat slightly agitated earlier today and was picking at his wound and caused some bleeding, but he is redirectable. PHYSICAL EXAMINATION: Temperature is 98, pulse 65, respirations 20, blood pressure 114/60, oxygen saturation 96% on BiPAP. INPUT ANT OUTPUT: Input 2.5 liters, output 2.3 liters. GENERAL: The patient is a cachectic male who is lying in bed in no acute distress. He is not using any accessory muscles for respiration. He is awake and alert and oriented. HEENT: Normocephalic, atraumatic. Mucous membranes are moist and neck is supple. No palpable cervical adenopathy. CARDIOVASCULAR: Regular rate and rhythm. Normal S1, S2. RESPIRATORY: There are diminished breath sounds bilaterally, more on the left base. Some improved breath sounds noted on the left side, with some coarse scattered crackles and rhonchi, but no wheezing. ABDOMEN: Soft, nontender, nondistended. There is a bandage in place with some bleeding. There is a Cachorro-Infante (RAJESH) drain in place. EXTREMITIES: There is some mild trace pitting edema in the lower extremities bilaterally. LABORATORY DATA: WBC 6.8, hemoglobin is 7.9, platelets of 45. Chemistry: Sodium is 144, potassium 2.8, chloride 101, bicarbonate is 43, BUN 24, creatinine 0.51, glucose is 110, magnesium is 1.8. IMAGING: Chest x-ray showed improvement in the left upper lobe opacity as well in the left lower lobe atelectasis with return in the mediastinal shift to center. There are some small effusions likely bilaterally. ASSESSMENT AND PLAN: Patient with a history of chronic obstructive pulmonary disease (COPD), with chronic hypoxemic respiratory failure, hypertension, who had initially presented with concern for a possible bowel perforation and is status post exploratory laparotomy. The patient's postop course was complicated with acute on chronic hypercapnic and hypoxemic respiratory failure requiring Vapotherm as well as BiPAP. The patient was found to have atelectasis and mucus plugging more in the left lung, likely contributing to his worsening hypoxemia. He has since had improvement in his hypoxemia and was able to be weaned down from Vapotherm to nasal cannula oxygen yesterday and continue with BiPAP overnight. 1.. Acute on chronic hypoxemic and hypercapnic respiratory failure. The patient has a history of COPD on chronic nasal cannula oxygen supplementation. Had acute worsening likely due to atelectasis and mucus plugging, with possible pneumonia. - The patient's hypoxemia has been improving. He was weaned off of the Vapotherm to nasal cannula oxygen supplementation during the day, which she has been tolerating. Will continue wean down his FiO2 as tolerated and maintain an oxygen saturation of 88-92%. Can continue with BiPAP at bedtime and will change him to a tabletop BiPAP . - Continue with encouraging mucus clearance with Acapella and nebulizer treatments with hypertonic saline nebulizers and chest PT. - Out of bed to chair. - History of a 7 mm left upper lobe lung nodule incidentally noted on the CT of the chest. He will need repeat a CT scan in 6 months and outpatient followup with pulmonary for it. 2. Sepsis with a previous history of possible perforation and peritoneal fluid cultures which were positive for Escherichia (E) coli and Citrobacter. The patient has been on Zosyn and infectious disease (ID) has been following. His chest x-ray had shown new infiltrate in the left upper lobe as well as some atelectasis and consolidation in the left lower lobe. Repeat x-ray today showed improvement in the opacity and atelectasis on left side - Will continue with Zosyn and follow up the repeat procalcitonin to building carpenter helper in de-escalation of antibiotics. 3. Diastolic heart failure with some component of third spacing and fluid overload with hypoalbuminemia. - The patient has been on intravenous (IV) Lasix for diuresis and has had improvement in his edema. His Lasix yesterday was held, but was resumed today and will continue with just 40 mg IV daily instead of twice a day and continue to monitor his input and output. - He does have some metabolic alkalosis and so we will have to monitor that closely and adjust his diuretics as needed. 4. Thrombocytopenia. Likely secondary to infection as well as from antibiotics. - HIT Antibody was negative. - Continue to hold Lovenox if platelet count is less than 50. Would restart when platelets are above 50. Continue with thromboembolitic deterrents (TEDs) and sequential compression devices (SCDs) for deep venous thrombosis (DVT) prophylaxis. 5. Diet. The patient is on total parenteral nutrition (TPN) as well as oral diet. Will continue to reduce TPN based on his oral intake. He does have poor nutritional status currently. 6. DVT prophylaxis. TEDs and SCDs. 7. Gastrointestinal (GI) prophylaxis. Protonix. 8. CODE STATUS: FULL CODE. Please do not hesitate to call for any further questions or concerns MTDD
[2019-04-16] MEDS ORDERED: DEX IV SCH (18:00)
[2019-04-16] MEDS ORDERED: POTASSIUM CHLORIDE IV SCH (18:00)
[2019-04-16] MEDS ORDERED: AMINO AC IV SCH (18:00)
[2019-04-16] MEDS ORDERED: FAT EMULSION IV 20% 500 ML IV SCH (18:00)
[2019-04-16] MEDS ORDERED: CALC IV SCH (18:00)
[2019-04-16] MEDS ORDERED: ELECTROLYTE IV SCH (18:00)
[2019-04-16 21:14] LABS: ABG BASE EXCESS 21.5 (-2.0-2.0); ABG HCO3 48.6 MEQ/L (22.0-26.0); ABG O2 SATURATION 89.6 % (95.0-99.0); ABG STANDARD HCO3 45.5 MEQ/L (22.0-26.0); ABG TOTAL CO2 50.9 MEQ/L (23.0-31.0); ABG pH (ARTERIAL) 7.433 UNITS (7.350-7.450)
[2019-04-16 21:20] LABS: ABG PARTIAL PRESSURE CO2 74.4 mmHg (35.0-45.0)
[2019-04-16] MEDS: OLANZapine 5 MG TAB PO SCH (21:42)
[2019-04-16] MEDS: TAMSULOSIN 0.4 MG CAP PO SCH (21:42)
[2019-04-16] MEDS: ATORVASTATIN 20 MG TAB PO SCH (21:43)
--- NOTE | 2019-04-16 22:12 | REPVR ---
PROCEDURE INFORMATION: Exam: XR Chest, 1 View Exam date and time: 04/16/2019 9:24 PM Age: 74 years old Clinical indication: Other: Hypoxia TECHNIQUE: Imaging protocol: XR of the chest Views: 1 view. COMPARISON: CR PORTABLE CHEST X-RAY 04/16/2019 6:34 AM FINDINGS: Tubes, catheters and devices: Right PICC line lies in the right subclavian artery and is unchanged. Lungs: Persistent atelectasis in the right middle lobe. Right lung is hyperinflated and there is volume loss in the left hemithorax with displacement of the mediastinum to the left. Pleural space: Trace pleural effusions. No pneumothorax. Heart/Mediastinum: Stable heart size. Mediastinum is increasingly displaced to the left. Bones/joints: Unremarkable. IMPRESSION: 1. Hyperinflated right lung with increasing leftward mediastinal displacement suggesting air trapping or bronchial obstruction. Short-term follow-up is recommended or consider chest CT or bronchoscopy if clinically indicated. 2. Right PICC line in the subclavian artery. Electronically signed by: Rick Young On 04/16/2019 22:11:58 PM
[2019-04-17] VITALS (24 sets, daily range): BP systolic 114–133; BP diastolic 60–67; O2SAT 82–98
[2019-04-17] MEDS: PIPERACILLIN/TAZOBACTAM SOD 3.375 GM in D5W MINI-BAG PLUS 50 ML IV SCH ×4 (02:18→20:09)
[2019-04-17] MEDS: SODIUM CHLORIDE HYPERTONIC 3% 15ML NEB SOL INH SCH ×4 (02:58→21:08)
[2019-04-17] MEDS: IPRATROPIUM 0.5MG/ALBUTEROL 2.5MG INH SOL UD 3ML (DUONEB)(J7620) NEB SCH ×4 (02:58→21:07)
[2019-04-17] MEDS: HumaLOG INSULIN (NovoLOG) PER UNIT SC SCH ×4 (06:00→17:52)
[2019-04-17 06:37] LABS: BASO % 0.1 % (0.0-1.0); EOS % 0.1 % (0.0-3.0); HEMATOCRIT 26.3 % (42.0-52.0); HEMOGLOBIN 8.2 g/dl (13.5-17.5); LYMPH # 0.4 10^3/uL (1.5-5.0); LYMPH % 4.6 % (24.0-44.0); MEAN CORPUSCULAR HEMOGLOBIN 29.1 pg (27.0-33.0); MEAN CORPUSCULAR HGB CONC 31.2 g/dl (32.0-36.5); MEAN CORPUSCULAR VOLUME 93.3 fl (80.0-96.0); MONO # 0.4 10^3/uL (0.0-0.8); NEUTROPHILS % 90.7 % (36.0-66.0); RED BLOOD COUNT 2.82 10^6/uL (4.30-6.10); WHITE BLOOD COUNT 8.8 10^3/uL (4.0-10.0)
[2019-04-17 06:39] LABS: PLATELET COUNT, AUTOMATED 48 10^3/uL (150-450)
[2019-04-17] MEDS: SODIUM CHLORIDE 0.9% INJ 10 ML SYR IV SCH ×2 (06:54→17:53)
[2019-04-17] MEDS: SENOKOT S TAB PO SCH ×2 (08:03→20:10)
[2019-04-17] MEDS: MAGNESIUM OXIDE 400 MG TAB (MAG-OX) PO SCH ×2 (08:03→20:09)
[2019-04-17] MEDS: MULTIVITAMINS/MINERALS THERAP 1 TAB PO SCH (08:03)
[2019-04-17] MEDS: SUCRALFATE 1 GM TAB PO SCH ×4 (08:03→20:09)
[2019-04-17] MEDS: FOLIC ACID 1 MG TAB PO SCH (08:03)
[2019-04-17] MEDS: PANTOPRAZOLE 40MG TAB (PROTONIX) PO SCH ×2 (08:03→20:10)
[2019-04-17] MEDS: SERTRALINE HCL 50 MG TAB PO SCH (08:03)
[2019-04-17] MEDS: ENOXAPARIN 40 MG/0.4 ML SYRINGE (J1650) SC SCH (08:06)
[2019-04-17 08:11] LABS: BLOOD UREA NITROGEN 22 MG/DL (7-18); CARBON DIOXIDE LEVEL 47 MEQ/L (21-32); CHLORIDE LEVEL 98 MEQ/L (98-107); GLOMERULAR FILTRATION RATE > 60.0 (>42); GLUCOSE, FASTING 105 MG/DL (70-100); MAGNESIUM LEVEL 1.9 MG/DL (1.8-2.4); POTASSIUM SERUM 3.6 MEQ/L (3.5-5.1); SODIUM LEVEL 144 MEQ/L (136-145)
--- NOTE | 2019-04-17 08:33 | IPNPDOC ---
Text Note Date of Service The patient was seen on 04/17/19. NOTE No acute events over the weekend. He does keep developing mucus plugging and a telectasis. Denies any abd pains, nausea, or emesis, and he is having normal BMs. I discussed his case with pulmonary, and she is concerned about his COPD. VSSAF NAD abd - soft, non distended, non tender, incision c/d/i, drain in the LLQ is serous labs - below A) 74y/o male s/p ex lap with washout for suspected posterior duodenal perforation leukocytosis resolved thrombocytopenia COPD P) reg diet, ensure amb in sequeira ABX lovenox carafate, PPI monitor labs stable from surgical standpoint. I discussed his case with the hospitalist, and I will transfer primary care to him. Ashu Gonzales DO VS,Dania, I+O VS, Dania, I+O Laboratory Tests 04/17/19 06:19 Vital Signs Date Time Temp Pulse Resp B/P (MAP) Pulse Ox O2 Delivery O2 Flow Rate FiO2 04/17/19 04:44 89 NIPPV (BIPAP/CPAP) 5.0 04/17/19 04:00 97.4 77 20 119/64 (82) 04/16/19 21:13 70 I&O- Last 24 Hours up to 6 AM 04/17/19 06:00 Intake Total 660 ml Output Total 3555 ml Balance -2895 ml IVANNA GONZALES DO Apr 17, 2019 08:33
[2019-04-17] MEDS ORDERED: FUROSEMIDE 40 MG/4 ML VIAL (J1940) IV SCH (09:00)
--- NOTE | 2019-04-17 09:22 | IPN ---
DATE: 04/16/2019 This is a 74-year-old male who is status post exploratory laparotomy on 04/08/2019 who has a history of acute on chronic hypercarbic and hypoxic respiratory failure, who had been initially intubated and then extubated. He had been on BiPAP, has been on Vapotherm. He had been weaned off of it to high flow nasal oxygen. He has been transferred to the progressive care unit (PCU). I was called by nursing to come and see him as his respiratory status had started to deteriorate. He had been placed on Vapotherm 40/70, respirations prior to my arrival I was told were 30 to 40. His oxygen saturation had dropped to 78 to 81. He was given a respiratory treatment and placed on the Vapotherm at 40/30. Stat chest x-ray was ordered. Blood gases were ordered. The patient did not complain of any pain. He was able to cough but not expectorate. Yankauer was used for oral suctioning of secretions. LABORATORY STUDIES: Blood gas showed an ABG pH 7.43, pCO2 of 74.4, pO2 of 56, HCO 348.6, total CO2 50.9, O2 saturation 89.6%. Settings were changed to 40/60. Stat chest x-ray showed hyperinflated right lung with increasing leftward mediastinal displacement suggesting air trapping or bronchial obstruction. Discussed with Dr. Vigil. The patient will be placed on the tabletop BiPAP as already ordered with setting of 14/6. We will continue with chest PT and respiratory therapy. We will do chest PT now. Continue respiratory treatments, keep the head of the bed elevated, keep the left lung up. Reassessment after being on the BiPAP for about 20 minutes. Respirations were 24. O2 saturation was 93%. He was tolerating it. OBJECTIVE: VITAL SIGNS: Blood pressure currently 112/60, pulse 80, respirations 24, oxygen saturation 93%. The patient is alert and oriented. BiPAP mask in place. NECK: Supple without lymphadenopathy, thyromegaly or goiter. CHEST: Severely decreased breath sounds. Respirations currently 24 per minute without retractions. HEART: Regular. ABDOMEN: Benign. Bowel sounds positive. GENITOURINARY/RECTAL: Not done. EXTREMITIES: No clubbing, cyanosis. Trace edema. IMPRESSION/PLAN: 1. Acute on chronic hypoxemia, hypercapnia. 2. History of chronic obstructive pulmonary disease (COPD) with worsening again probable mucus plugging. Placed on BiPAP, tabletop 30/07. Continue respiratory treatments, chest PT. Monitor oxygen saturation to maintain greater than 90%. He had his bed elevated. Other treatments without change. MTDD
--- NOTE | 2019-04-17 13:38 | IPNPDOC ---
Subjective Date Seen The patient was seen on 04/17/19. Subjective Chief Complaint/HPI Dropped sats overnight on hi-isaias nc, and needed to be placed on bipap therapy. Alert and oriented this morning, breathing non-labored. Hypoglycemic last night, sliding scale discontinued. Objective Physical Examination General Exam: Positive: Alert, Cooperative, No Acute Distress Eye Exam: Positive: PERRLA, EOMI; Negative: Sclera icteric ENT Exam: Positive: Other ENT (wearing bipap mask) Neck Exam: Negative: JVD, thyromegaly Chest Exam: Positive: Clear to auscultation Heart Exam: Positive: Rate Normal Abdomen Exam: Positive: Soft; Negative: Normal bowel sounds, Tenderness Extremity Exam: Negative: Clubbing, Cyanosis, Edema Skin Exam: Negative: Rash Neuro Exam: Positive: Normal Speech Psych Exam: Positive: Mood NL; Negative: Anxiety Assessment /Plan Assessment # Suspected posterior duodenal perforation. Status post exploratory laparotomy the night of 04/08/[address] Gonzales, postoperative day #5. - surgical issues are stable, d/w Dr. Gonzales, hospitalist service will assume attending role # Acute on chronic hypercarbic and hypoxic respiratory failure, status post intubation with successful extubation. # Chronic COPD on Home oxygen - cxr improved - d/w Pulmonary, will continue with chest PT and bipap # GI bleed - tx if hgb drops further - lovenox stopped - not candidate for GI eval at this time with respiratory issues. - IV protonix bid # Sepsis. Secondary to bowel perforation. - Resolved. - Empiric zosyn - Beta-(1,3)-D-Glucan 39 - cx + citrobacter and e.coli # Acute Thrombocytopenia (2/2 acute illness) - heparin-induced platelet antibodies are normal - may resume lovenox when platelet counts rebound - gradually trending higher # Pulmonary nodule. 7 mm left upper lung nodule - Outpatient follow-up with pulmonology # Chronic alcoholism - [facility] protocol # Protein calorie malnutrition, severe. - Currently on TPN via PICC line managed by general surgery. # DVT prophylaxis: Lovenox held due to low platelets Plan/VTE VTE Prophylaxis Ordered?: Yes VTE Exclusion Mechanical Proph: N/A:VTE Prophy Ordered VTE Exclusion Pharmacological: Thrombocytopenia VS, I&O, 24H, Fishbone Vital Signs/I&O Vital Signs Date Time Temp Pulse Resp B/P (MAP) Pulse Ox O2 Delivery O2 Flow Rate FiO2 04/17/19 12:00 40.0 95 04/17/19 12:00 97.2 78 20 116/62 (80) 91 NIPPV (BIPAP/CPAP) I&O- Last 24 Hours up to 6 AM 04/17/19 06:00 Intake Total 660 ml Output Total 3555 ml Balance -2895 ml Laboratory Data 24H LABS Laboratory Tests 2 04/16/19 17:03: Bedside Glucose (Misc Panel) 112H 04/16/19 21:08: Blood Gas Bicarbonate Standard 45.5H, Arterial Blood pH 7.433, Arterial Blood Partial Pressure CO2 74.4*H, Arterial Blood Partial Pressure O2 56.0L, Arterial Blood Total CO2 50.9H, Arterial Blood HCO3 48.6H, Arterial Blood Base Excess 21.5H, Arterial Blood Oxygen Saturation 89.6L 04/17/19 00:07: Bedside Glucose (Misc Panel) 76L 04/17/19 06:06: Bedside Glucose (Misc Panel) 111H 04/17/19 06:19: Immature Granulocyte % (Auto) 0.5, Neutrophils (%) (Auto) 90.7H, Lymphocytes (%) (Auto) 4.6L, Monocytes (%) (Auto) 4.0, Eosinophils (%) (Auto) 0.1, Basophils (%) (Auto) 0.1, Neutrophils # (Auto) 8.0, Lymphocytes # (Auto) 0.4L, Monocytes # (Auto) 0.4, Eosinophils # (Auto) 0.0, Basophils # (Auto) 0.0, Nucleated Red Blood Cells % (auto) 0.0, Immature Platelet Fraction 13.3H, Anion Gap , Glomerular Filtration Rate > 60.0, Calcium Level 8.0L, Magnesium Level 1.9 04/17/19 11:42: Bedside Glucose (Misc Panel) 138H CBC/BMP Laboratory Tests 04/17/19 06:19 Microbiology Microbiology 04/14/19 Stool Occult Blood (GEOVANNA) - Final, Complete 04/09/19 Fungal Smear, Received Pending 04/09/19 Fungal Culture, Received Pending 04/09/19 Gram Stain - Final, Complete 04/09/19 Body Fluid Culture - Final, Complete Citrobacter Freundii Escherichia Coli 04/09/19 Blood Culture - Final, Complete NO GROWTH AFTER 5 DAYS 04/09/19 Blood Culture - Final, Complete NO GROWTH AFTER 5 DAYS SHIMA ANDRADE MD Apr 17, 2019 13:38
[2019-04-17] MEDS ORDERED: METOPROLOL TART 12.5 MG PER 1/2 TAB PO ONE (17:45)
--- NOTE | 2019-04-17 19:49 | IPN ---
DATE: 04/17/2019 The patient is seen and examined this morning during bedside rounds. Overnight, the patient experienced an episode of desaturation and on-call critical care attending was contacted, who advised the patient be put back on BiPAP, as per the order settings. He did well on the BiPAP overnight. He presently denies any chief complaints. He states that he continues to have a productive cough of mucus. He denies any fevers, chills, chest pain, difficulty breathing, nausea or vomiting. PHYSICAL EXAMINATION: VITAL SIGNS: Temperature 97.8, pulse 72, respiratory rate 18, blood pressure 117/65, saturating 92% on BiPAP. Input and output: Intake 1070, output 3260 with a net negative 2190 in the last 24 hours. PHYSICAL EXAMINATION: GENERAL: The patient is alert, oriented, elderly-appearing male in no acute distress. The patient is cachectic. HEENT: Head is normocephalic, atraumatic. Mucous membranes are moist. Neck is full. No cervical adenopathy. Trachea is midline. CARDIOVASCULAR: Regular rate and rhythm. Normal S1, S2. No murmurs, gallops or rubs. RESPIRATORY: Diminished breath sounds bilaterally, more so in the left base still. No crackles or rhonchi appreciated. No wheezing. ABDOMEN: Soft, nontender, nondistended. Bandage in place. Cachorro-Infante drain in place. EXTREMITIES: 1+ pitting edema in bilateral lower extremities. LABORATORY DATA: White blood cell count of 8.8, hemoglobin 8.2, hematocrit of 26.3, platelet count of 48. Sodium 144, potassium 3.6, chloride 98, CO2 of 47, BUN 22, creatinine 0.5, glucose 105, magnesium 1.9. IMAGING: No chest x-ray ordered for this morning. ASSESSMENT AND PLAN: The patient has a history of chronic obstructive pulmonary disease (COPD) with chronic hypoxemic respiratory failure, hypertension, who initially presented with concern for possible bowel perforation and is status post exploratory laparotomy. The patient's postoperative course complicated by acute on chronic hypercapnic and hypoxemic respiratory failure requiring Vapotherm, as well as BiPAP. The patient was found to have atelectasis and mucus plugging, more in the left lung, likely contributing to worsening hypoxemia. He has had improvement in his hypoxemia and previously was able to be weaned down to Vapotherm, but continues to require BiPAP intermittently. Moreover, his chest x-ray had improved but it seems as though last night he seems to have recollapsed the part of his lung that had previously expanded. 1. Acute on chronic hypoxemic and hypercapnic respiratory failure. The patient has a history of chronic obstructive pulmonary disease (COPD) and on chronic nasal cannula oxygen supplementation with acute worsening, likely due to atelectasis, mucus plugging and possible pneumonia. The patient's hypoxemia had been improving and we suspect that overnight he had an episode where the left side of his lung recollapsed. We will need to continue with aggressive chest PT, getting him in a chair more frequently. We will continue to wean down his FiO2 as tolerated to maintain saturations between 88 to 92%. Continue him on tabletop BiPAP. Continue with Acapella and hypertonic saline nebulizers. The patient also has a history of 7 mm left upper lung lobe nodule incidentally noted on CT of the chest. He will need repeat CT scan in 6 months and outpatient followup with pulmonary. 2. Sepsis with a previous history of possible perforation. Peritoneal fluid cultures were positive for Escherichia (E) coli and Citrobacter. The patient has been on Zosyn and infectious disease has been following. His chest x-ray had previously shown infiltrate in the left upper lobe, as well as some atelectasis and consolidation in the left lower lobe. We will continue to follow along with this and may consider ordering a repeat chest x-ray tomorrow. For the time being, continue Zosyn. Repeat procalcitonin was 0.37 on 04/16/2019. 3. Diastolic heart failure with some component of third spacing and fluid overload with hypoalbuminemia. The patient has been on IV Lasix for diuresis and has had improvement in his edema. We will hold his Lasix again today and continue to monitor his input and output. 4. Thrombocytopenia. Likely secondary to infection as well as from his antibiotics and antibody negative. We will continue to hold Lovenox since his platelet count is less than 50. Can restart when it is above 50. Continue with thromboembolic compression stockings (TEDS) and sequentials for deep vein thrombosis (DVT) prophylaxis. 5. Diet. The patient is on TPN and oral diet. We will continue to reduce TPN based on how well he does with oral intake. 6. Gastrointestinal prophylaxis. On Protonix. 7. Code status. FULL CODE. I, Zenaida Vigil, conducted an independent examination and history of the patient and agree with the plan as detailed above by the resident and discussed during rounds Total critical care time not including procedures approx 35mins MTDD
[2019-04-17] MEDS: OLANZapine 5 MG TAB PO SCH (20:09)
[2019-04-17] MEDS: TAMSULOSIN 0.4 MG CAP PO SCH (20:10)
[2019-04-17] MEDS: ATORVASTATIN 20 MG TAB PO SCH (20:10)
[2019-04-18] VITALS (24 sets, daily range): BP systolic 90–134; BP diastolic 57–73; O2SAT 87–100
[2019-04-18] MEDS: HumaLOG INSULIN (NovoLOG) PER UNIT SC SCH ×4 (00:21→17:41)
[2019-04-18] MEDS: SODIUM CHLORIDE HYPERTONIC 3% 15ML NEB SOL INH SCH ×4 (01:19→20:28)
[2019-04-18] MEDS: IPRATROPIUM 0.5MG/ALBUTEROL 2.5MG INH SOL UD 3ML (DUONEB)(J7620) NEB SCH ×4 (01:19→20:28)
[2019-04-18] MEDS: SODIUM CHLORIDE 0.9% INJ 10 ML SYR IV SCH ×2 (06:00→17:41)
[2019-04-18 06:01] LABS: HEMATOCRIT 25.8 % (42.0-52.0); HEMOGLOBIN 7.8 g/dl (13.5-17.5); MEAN CORPUSCULAR HEMOGLOBIN 28.1 pg (27.0-33.0); MEAN CORPUSCULAR HGB CONC 30.2 g/dl (32.0-36.5); MEAN CORPUSCULAR VOLUME 92.8 fl (80.0-96.0); RED BLOOD COUNT 2.78 10^6/uL (4.30-6.10); WHITE BLOOD COUNT 10.9 10^3/uL (4.0-10.0)
[2019-04-18 06:03] LABS: PLATELET COUNT, AUTOMATED 57 10^3/uL (150-450)
[2019-04-18 06:39] LABS: ALBUMIN 1.6 GM/DL (3.2-5.2); ALT/SGPT 45 U/L (12-78); BILIRUBIN,TOTAL 0.5 MG/DL (0.2-1.0); BLOOD UREA NITROGEN 22 MG/DL (7-18); C REACTIVE PROTEIN QUANTITATIV 6.39 MG/DL (0.00-0.30); CALCIUM LEVEL 7.7 MG/DL (8.8-10.2); CARBON DIOXIDE LEVEL 48 MEQ/L (21-32); CHLORIDE LEVEL 94 MEQ/L (98-107); CREATININE FOR GFR 0.45 MG/DL (0.70-1.30); GLOMERULAR FILTRATION RATE > 60.0 (>42); POTASSIUM SERUM 3.6 MEQ/L (3.5-5.1); SODIUM LEVEL 141 MEQ/L (136-145); TOTAL PROTEIN 4.7 GM/DL (6.4-8.2)
[2019-04-18] MEDS ORDERED: METOPROLOL TART 12.5 MG PER 1/2 TAB PO ONE (06:45)
[2019-04-18 06:49] LABS: GLUCOSE, FASTING 24 MG/DL (70-100)
[2019-04-18] MEDS: SUCRALFATE 1 GM TAB PO SCH ×4 (07:01→21:05)
[2019-04-18] MEDS ORDERED: AMIODARONE HCL 150 MG in IV 1 EA IV STA (07:11)
[2019-04-18 08:00] LABS: THYROID STIMULATING HORMONE 10.5 uIU/ML (0.358-3.740)
[2019-04-18] MEDS: MAGNESIUM OXIDE 400 MG TAB (MAG-OX) PO SCH ×2 (08:37→21:05)
[2019-04-18] MEDS: SENOKOT S TAB PO SCH ×2 (08:37→21:05)
[2019-04-18] MEDS: MULTIVITAMINS/MINERALS THERAP 1 TAB PO SCH (08:37)
[2019-04-18] MEDS: FOLIC ACID 1 MG TAB PO SCH (08:37)
[2019-04-18] MEDS: SERTRALINE HCL 50 MG TAB PO SCH (08:37)
[2019-04-18] MEDS: PANTOPRAZOLE 40MG TAB (PROTONIX) PO SCH ×2 (08:37→21:05)
--- NOTE | 2019-04-18 08:37 | REP ---
Portable chest x-ray: Single view. History: Shortness of breath. Comparison chest x-ray: April 16, 2019 at 9:[address] study April 08, 2019. Findings: There is volume loss again noted in the left hemithorax although this is improved slightly. Findings suggest lobar atelectasis left lower lobe. Possibly some atelectasis in the left upper lobe. There is some pleural opacity at the left base indicating small left pleural effusion. Left hilar fullness is noted. Recent CT study shows a left-sided superior vena cava which may be exaggerating the left hilar silhouette. Prominent central pulmonary arteries and pulmonary hypertension is a possibility. Right heart border is difficult to perceive. The heart does not appear to be enlarged. There is a diffuse interstitial prominence in the right lung more so than on yesterday's radiograph suggesting developing pulmonary edema. There is no evidence of pneumothorax. Oxygen delivery tubing and EKG monitoring electrodes are seen. Impression: Volume loss left hemithorax question lobar atelectasis left lower lobe. Possibly left upper lobe atelectasis. Small left effusion. Prominent left hilus. Mild interstitial edema pattern. Electronically Signed by Bonilla Covington MD 04/18/2019 08:40 A
[2019-04-18 08:42] LABS: ABG HCO3 46.8 MEQ/L (22.0-26.0)
[2019-04-18 08:44] LABS: ABG BASE EXCESS 20.1 (-2.0-2.0); ABG O2 SATURATION 92.6 % (95.0-99.0); ABG PARTIAL PRESSURE O2 64.6 mmHg (75.0-100.0); ABG pH (ARTERIAL) 7.439 UNITS (7.350-7.450)
[2019-04-18 08:47] LABS: ABG PARTIAL PRESSURE CO2 70.7 mmHg (35.0-45.0)
--- NOTE | 2019-04-18 10:00 | IPN ---
DATE: 04/17/2019 Mr. Salas was a little irritable tonight. He was having dinner and did not want to answer questions. He denies any nausea, vomiting or diarrhea. He ate half his supper. He has had no fever or chills. No abdominal pain. He is still on total parenteral nutrition (TPN). LABORATORY DATA: White count is 8.8, hemoglobin 8.2, hematocrit 26.3, platelets 48 down from 155 on admission, 90% neutrophils, 5% lymphocytes, 4% monocytes. Sodium 144, potassium 3.6, chloride 98, bicarb 47, BUN 22, creatinine 0.5, glucose 105, calcium 8, magnesium 1.9. B-d-glucan was 39. He continued having episodes of respiratory distress with mucous plugging and he is still on BiPap. Temperature is 98.5, pulse 144, blood pressure 104/64, O2 sat 97% on FIO2 of 45%. Heart: Normal S1, S2. Tachycardiac. Lungs: Exterior rhonchi bilaterally. Abdomen: Soft, nontender. No visceromegaly. Xu in place. Extremities: +1 pitting edema bilaterally. IMPRESSION: 1. Bowel perforation with secondary peritonitis with culture positive for Citrobacter and E-coli. The patient has been on 10 days of IV Zosyn. He has no abdominal discomfort. His white count is normal and he is afebrile. IV Zosyn will be discontinued. 2. Acute on chronic respiratory failure. Patient on high-flow oxygen and BiPap intermittently. Sputum is productive of mostly whitish phlegm. Will continue to encourage use of Acapella and chest PT. PLAN: Discontinue IV Zosyn, the patient has finished. Continue to monitor respiratory status. If cough becomes productive and his respiratory status decompensates, will obtain sputum gram stain and culture.
[2019-04-18] MEDS ORDERED: HEPARIN SOD (PORCINE) 5000 UNITS/ML VIAL (J1644 PER 1000UNITS) SQ SCH (14:00)
--- NOTE | 2019-04-18 14:40 | IPN ---
DATE: 04/18/2019 Patient is seen and examined this morning during bedside rounds. There were no acute events overnight. Patient continues to tolerate BiPAP at night or while resting and Vapotherm during other times of the day. He continues to have a productive cough of yellow-jaimes sputum. But denies any fevers, chills, chest pain, difficulty breathing, abdominal pain, nausea or vomiting. OBJECTIVE: VITALS: Maximum temperature (T-max) 98.5, pulse 130, blood pressure 90/62 saturating 96% on 35% FiO2. Input and output. Urine output 928 mg fluid in, 3168 mL fluid out. GENERAL: Patient is an awake, alert, oriented male in no acute distress. Cachectic appearing. HEENT: Head is normocephalic, atraumatic. Mucous membranes are moist. No cervical lymphadenopathy. Trachea is midline. CARDIOVASCULAR: Regular rate and rhythm. Normal S1 and S2. No murmurs, gallops or rubs. RESPIRATORY: Diminished breath sounds bilaterally. Increased aeration in the left side of the lungs compared to prior examinations. No wheezes, crackles or rhonchi appreciated on exam. ABDOMEN: Soft, nontender, nondistended. Bandage in place. Cachorro-Infante (ARJESH) drain in place. EXTREMITIES: Mild pitting edema in bilateral lower extremities. LABORATORY DATA: White blood cell count of 10.9, hemoglobin 7,8, hematocrit 25.8, platelet count 57. Sodium 141, potassium 3.6, chloride 94, bicarbonate of 48, BUN 22, creatinine 0.45, glucose of 91, calcium 7.7, AST 48, ALT 45, alkaline phos 86, CRP 6.39, albumin 1.6. IMAGING: Chest x-ray showing decreased atelectasis and left middle and upper lobe compared to prior study. There is no longer a shift in the trachea which was also apparent compared to prior studies. Pleural angles are visualized. Left pleural angle is slightly less sharp than opposite side. ASSESSMENT/PLAN: Patient has a history of COPD with chronic hypoxemic respiratory failure, hypertension who initially presented with concern for possible bowel perforation and is status post exploratory laparotomy. Patient's postop course was complicated by acute on chronic hypercapnic and hypoxemic respiratory failure requiring BiPAP and Vapotherm. Patient was found to have atelectasis and mucous plugging more so in the left lung, which likely contributed to worsening hypoxemia. He has had improvements in his hypoxemia and was able to be weaned down to Vapotherm with intermittent BiPAP use. His chest x-ray similarly has improved as he has been sitting more upright and engaging more with chest PT and using acapella more. 1. Acute on chronic hypoxemic and hypercapnic respiratory failure: Patient has a history of chronic obstructive pulmonary disease (COPD) and is on chronic nasal cannula oxygen supplementation with acute worsening likely due to atelectasis, mucous plugging and possible pneumonia. Patient's hypoxemia seems to have improve with the Vapotherm and the intermittent BiPAP use and the left-sided lung seems to have re-expanded now as his interval chest x-ray looks significantly improved. Advised continuing with aggressive chest PT and having him sit upright in the chair. He is maintaining saturations on relatively low FiO2. It is okay to maintain saturations between 80-92%. It is okay to continue on tabletop BiPAP as well as acapella and hypertonic saline nebulizers. 2. Sepsis with prior history of possible perforation: Peritoneal fluid culture is positive for E Coli and Citrobacter. Patient had previously been on Zosyn and infectious disease (ID) has been following along. His chest x-ray had previously shown infiltrate in the left upper lobe as well as atelectasis and consolidation left lower lobe. This seems to have resolved. 3. Diastolic heart failure with some component of third spacing and fluid overload with hypoalbuminemia. Patient's Lasix has been held and he has been diuresis very well without it as he is net negative 2.2 liters in the last 24 hours. 4. Thrombocytopenia: His platelet count is now above 50. It is at 57. We will restart heparin three times a day and continued to monitor his platelet count. 5. Code status: A discussion was had by Dr. Chowdary as well as the pulmonary service regarding his code status. He now wishes to be DO NOT RESUSCITATE, DO NOT INTUBATE. At this point, the pulmonary service will sign off on this patient. Please do not hesitate to re-consult us with any questions or concerns you may have. I, Zenaida Vigil, conducted an independent examination and history of the patient and agree with the plan as detailed above by the resident and discussed during rounds Total critical care time spent not including any procedures approx 40mins MTDD
--- NOTE | 2019-04-18 15:13 | ECGEPIP ---
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
--- NOTE | 2019-04-18 16:06 | IPN ---
DATE: 04/18/2019 SUBJECTIVE: Registered nurse called regarding atrial flutter with a ventricular rate of 134 this morning, blood pressure 90 systolic. The patient was given one dose of intravenous amiodarone. The patient refused to keep his Vapotherm on with arterial blood gas showing a pH of 7.4, CO2 of 70.7. The patient had presumed gastrointestinal bleed, currently with hemoglobin of 7.8, hematocrit of 25.8. He is confused and disoriented. Family at the bedside, agree with DO NOT RESUSCITATE, DO NOT INTUBATE due to severe emphysema, inability to manage his secretions. Daughter and the patient's sister are at the bedside, who are the healthcare proxies. PHYSICAL EXAMINATION: VITAL SIGNS: Temperature 97.6, pulse 134, respiratory rate 24, blood pressure 90/62, pulse oximetry 96% on Vapotherm 40% FiO2. GENERAL: The patient is in moderate distress. Slight pallor. Positive use of respiratory accessory muscles, four to five word conversational dyspnea, abdominal retractions. LUNGS: Diminished. Coarse rhonchi and crackles in bilateral bases. HEART: S1, S2. Irregularly irregular. ABDOMEN: Soft, nontender, nondistended. Positive bowel sounds times four quadrants. EXTREMITIES: No pitting edema. LABORATORY DATA: White count 10.9, hemoglobin 7.8, hematocrit 25, platelet count 57, admission platelet count of 155 off Lovenox. Sodium 141, potassium 3.6, chloride 94, bicarbonate 48, BUN 22, creatinine 0.45, glucose of 24. IMPRESSION: 1. Acute metabolic encephalopathy secondary to hypoglycemia, chronic hypercapnia, secondary peritonitis with Citrobacter and Escherichia (E) coli . Currently on no antibiotics, as the patient has completed 10 days of intravenous Zosyn. Afebrile. Slight increase in white count. We will continue to monitor. 2. Acute on chronic hypoxic and hypercapnic respiratory failure with underlying severe emphysema and pulmonary nodule. Per Dr. Vigil, the patient is unable to effectively clear his secretions and at risk for chronic hypoxia. Currently, on Vapotherm. Per the family, who are healthcare proxy, daughter Cassie Francis and the patient's sister, the patient is appropriate for DO NOT RESUSCITATE, DO NOT INTUBATE knowing his chronic conditions, such as severe emphysema, pulmonary nodule, chronic hypercapnia and hypoxia. Acapella and pulmonary toilet. 3. Suspected perforated viscus, status post exploratory laparotomy, on oral diet per surgery and Ensure for supplemental nutrition. 4. Protein calorie malnutrition. Body Mass Index (BMI) of 19.1. Sterile Supervisor consulted. 5. Depression. On chronic Zoloft. 6. Presumed gastrointestinal bleed with hemoglobin of 7.8. Repeat hemoglobin and hematocrit every 6 hours and transfuse as needed for symptomatic anemia. 7. Atrial flutter with rapid ventricular response. The patient's blood pressure was 90, was given intravenous amiodarone. Monitor patient's electrolytes. Check an echo. No anticoagulation due to presumed gastrointestinal bleed. 8. Diet. Regular diet with Ensure supplement. 9. Sepsis secondary to suspected posterior duodenal perforation, status post exploratory laparotomy on 04/08/2019. Resolved. Status post 10 days of empiric Zosyn. 10. Acute thrombocytopenia. Heparin induced thrombocytopenia (HIT) antibodies assay normal. Discontinue Lovenox. 11. Pulmonary nodule, 7 mm. Outpatient followup if wanted. 12. Chronic alcoholism. Clinical Burket Withdrawal Assessment (CIWA) protocol. 13. Deep vein thrombosis (DVT) prophylaxis. Compression stockings. Lovenox discontinued due to low platelets. CODE STATUS: DO NOT RESUSCITATE, DO NOT INTUBATE. MTDD
--- NOTE | 2019-04-18 19:14 | ECHO ---
DATE OF PROCEDURE: 04/18/2019 REFERRING PHYSICIAN: Dr. Chowdary INDICATION: Atrial fibrillation. Height 168 cm, weight 54 kg. DIMENSIONS: IVS: 2.4 LV: 4.2 LVPW: 1.8 LA: 3.8 Aorta: 3.8 IVC: 1.9 Mitral E wave velocity: 52 A wave: 97 Tissue Doppler velocities of mitral annulus were not recorded. Study is of excellent technical quality. The patient is in sinus rhythm. Left ventricle is of normal size. There is normal contractility with estimated left ventricular ejection fraction (LVEF) around 60-65%. Global severe left ventricular hypertrophy is present. Right ventricle is dilated and hypokinetic. There is severe right atrial enlargement. Left atrium appears normal. Aortic valve is minimally sclerotic but mobility of leaflets is preserved. There are also mild degenerative abnormalities of mitral valve but mobility of leaflets is preserved as well. Tricuspid valve appears grossly normal. Pulmonic valve also appears normal. Pulmonary artery and RVOT appears enlarged. There is small noncompressive pericardial effusion. Inferior vena cava is normal size and collapses with inspiration indicative of likely normal central venous pressure. Aortic root appears normal. Aortic arch and abdominal aorta were not well seen. Left pleural effusion is visualized. Doppler interrogation of aortic valve reveals no stenosis and mild insufficiency. There is also mild mitral insufficiency. There is severe tricuspid insufficiency. Calculated pulmonary artery pressure is in 60s corresponding to moderately severe pulmonary hypertension. Mitral inflow pattern is indicative of grade 1 diastolic dysfunction. CONCLUSIONS: 1. Study is of good technical quality. The patient is in sinus rhythm. 2. Normal left ventricular (LV) size with severe left ventricular hypertrophy and normal LV systolic function. Likely grade 1 diastolic dysfunction. 3. Dilated hypokinetic right ventricle. 4. Aortic sclerosis with no stenosis and mild insufficiency. 5. Mild mitral and pulmonic insufficiency. 6. Severe tricuspid insufficiency. 7. Probably normal central venous pressure. 8. At least moderately severe pulmonary hypertension. 9. Small noncompressive pericardial effusion. 10. Left pleural effusion. COMMENT: Study is suggestive of severe hypertensive heart disease or possibly hypertrophic cardiomyopathy with probably secondary pulmonary hypertension.
--- NOTE | 2019-04-18 20:34 | IPN ---
DATE: 04/18/2019 Mr. Salas is seen and examined at the bedside this evening. His is calm, very cooperative, very pleasant, and his daughter is seated at the bedside next to him. He denies any complaints, including no abdominal pain. He is eating most of his meals, and he continues to require high-flow oxygen. He denies any shortness of breath or any cough. His daughter reports that he has been using his Acapella, and he has not had any new changes overnight. OBJECTIVE: VITAL SIGNS: Temperature 97.4, pulse 66, respiratory rate 16, blood pressure 111/57, pulse oximetry 95%, and he is 40% FiO2 on the Vapotherm at 35 liters. GENERAL: He is lying in bed. He is calm, cooperative. No acute distress. He is very pleasant. HEAD: Normocephalic, atraumatic. EENT: Extraocular movements are intact, and his pupils are equally round and reactive to light. His mucous membranes are moist. His neck is supple with no thyromegaly. No lymphadenopathy. CHEST: He has even chest rise. LUNGS: He has decreased breath sounds bilaterally. Otherwise, no adventitious breath sounds can be appreciated. CARDIOVASCULAR: He is regular rate and rhythm with no murmurs, rubs, or gallops. ABDOMEN: Soft and nontender to palpation with positive bowel sounds and no masses and no organomegaly. Surgical site is clean, dry, and intact with vidal in place echymosis along vidal. No evidence of erythema or infection. EXTREMITIES: No clubbing, cyanosis, or edema. LYMPHATICS: He has no enlarged lymph nodes in the posterior auricular, cervical, supraclavicular, or femoral chains. SKIN: He has no new rashes or lesions. Warm and well perfused. LABORATORY DATA: CBC demonstrates a white blood cell count of 10.9, hemoglobin 7.8, hemoglobin 25.8, platelet count of 57. Chemistries show sodium 141, potassium 3.6, carbon dioxide 48, BUN 22, and creatinine 0.45. He did have a fasting glucose of 24 that was documented. His AST is down to 48 from 56 prior. CRP is 6.39 from 7.9 last week. His TSH was found to be 10.5. He did have a chest x-ray done this morning and is read as volume loss. Left hemithorax. Question lobar atelectasis. Left lower lobe. Possibly left upper lobe atelectasis. Small left effusion. Prominent left hilus. Mild interstitial edema pattern. IMPRESSION: 1. Bowel perforation with secondary peritonitis with culture positive for Citrobacter and Escherichia (E) coli. The patient completed 10 days of intravenous (IV) Zosyn, and he is no longer on it. He has no abdominal pain white count is normal. 2. Acute on chronic respiratory failure. Patient is on high-flow oxygen and bilevel positive airway pressure (BiPAP) intermittently. Sputum is productive Mostly whitish phlegm. Continue to encourage the use of Acapella and chest physical therapy (PT). PLAN: The patient no longer needs any antibiotics, and he is eating well. No signs of abdominal infection. We recommend to continue with aggressive chest PT with Acapella and incentive spirometry to clear his mucous plugging in his lungs. His history of lung disease probably complicated his care in terms of his mucus plugging, but at this time we will sign off on the patient, as we feel he no longer needs any infectious disease monitoring. Should you have any questions, feel free to call us. ANNIED
[2019-04-18] MEDS: ATORVASTATIN 20 MG TAB PO SCH (21:05)
[2019-04-18] MEDS: TAMSULOSIN 0.4 MG CAP PO SCH (21:05)
[2019-04-18] MEDS: OLANZapine 5 MG TAB PO SCH (21:05)
[2019-04-19] VITALS (21 sets, daily range): BP systolic 106–122; BP diastolic 54–70; O2SAT 79–100
[2019-04-19] MEDS: SODIUM CHLORIDE HYPERTONIC 3% 15ML NEB SOL INH SCH ×4 (01:12→20:00)
[2019-04-19] MEDS: IPRATROPIUM 0.5MG/ALBUTEROL 2.5MG INH SOL UD 3ML (DUONEB)(J7620) NEB SCH ×4 (01:12→20:00)
[2019-04-19] MEDS: HumaLOG INSULIN (NovoLOG) PER UNIT SC SCH ×4 (05:45→17:53)
[2019-04-19 05:46] LABS: HEMATOCRIT 24.3 % (42.0-52.0); HEMOGLOBIN 7.4 g/dl (13.5-17.5); MEAN CORPUSCULAR HEMOGLOBIN 28.2 pg (27.0-33.0); MEAN CORPUSCULAR HGB CONC 30.5 g/dl (32.0-36.5); MEAN CORPUSCULAR VOLUME 92.7 fl (80.0-96.0); RED BLOOD COUNT 2.62 10^6/uL (4.30-6.10); WHITE BLOOD COUNT 9.6 10^3/uL (4.0-10.0)
[2019-04-19] MEDS: SODIUM CHLORIDE 0.9% INJ 10 ML SYR IV SCH ×2 (05:46→18:01)
[2019-04-19 05:48] LABS: PLATELET COUNT, AUTOMATED 73 10^3/uL (150-450)
[2019-04-19] MEDS: SUCRALFATE 1 GM TAB PO SCH ×4 (06:58→22:01)
[2019-04-19] MEDS ORDERED: FUROSEMIDE 20 MG/2 ML VIAL (J1940) IV ONE ×2 (09:00→10:00)
[2019-04-19 09:19] LABS: BLOOD UREA NITROGEN 17 MG/DL (7-18); CALCIUM LEVEL 7.7 MG/DL (8.8-10.2); CARBON DIOXIDE LEVEL 48 MEQ/L (21-32); CHLORIDE LEVEL 93 MEQ/L (98-107); GLOMERULAR FILTRATION RATE > 60.0 (>42); GLUCOSE, FASTING 75 MG/DL (70-100); SODIUM LEVEL 139 MEQ/L (136-145)
[2019-04-19] MEDS: PANTOPRAZOLE 40MG TAB (PROTONIX) PO SCH ×2 (09:40→22:01)
[2019-04-19] MEDS: SENOKOT S TAB PO SCH ×2 (09:52→22:01)
[2019-04-19] MEDS: MULTIVITAMINS/MINERALS THERAP 1 TAB PO SCH (09:52)
[2019-04-19] MEDS: FOLIC ACID 1 MG TAB PO SCH (09:52)
[2019-04-19] MEDS: SERTRALINE HCL 50 MG TAB PO SCH (09:52)
[2019-04-19] MEDS: MAGNESIUM OXIDE 400 MG TAB (MAG-OX) PO SCH ×2 (09:52→22:01)
[2019-04-19 17:37] LABS: HEMATOCRIT 34.1 % (42.0-52.0)
[2019-04-19 17:50] LABS: HEMOGLOBIN 10.6 g/dl (13.5-17.5)
--- NOTE | 2019-04-19 19:49 | IPN ---
DATE: 04/19/2019 The patient is sitting and eating his breakfast at the bedside. He says that his breathing is unchanged. No chest pain, pressure or tightness, lightheadedness or dizziness. No fever or chills. The patient continues to cough with white-yellow productive sputum, improved from a few days ago. PHYSICAL EXAMINATION: VITAL SIGNS: Temperature 96. He remains disoriented. Only able to state his name. Does not know where he is or the date. Pulse 62, respiratory rate 20, blood pressure 122/61, 98% on 15 liters high flow nasal cannula. GENERAL: The patient is awake, alert, oriented to himself only. He does have some mild conversational dyspnea, about four to five words. No jugular venous distention (JVD). No thyromegaly. Dry mucous membranes. Pupils are round and reactive. Extraocular muscles are intact. LUNGS: Diminished with bilateral crackles. HEART: S1, S2. Sinus rhythm. ABDOMEN: Soft, nontender, nondistended. Positive bowel sounds. EXTREMITIES: No pitting edema. LABORATORY DATA: White count 9.6, hemoglobin 7.4, hematocrit 24, platelet count 73. Previous hemoglobin 7.8, hematocrit 25.8. Previous platelet count of 57. Sodium 139, potassium 4, chloride 93, bicarbonate 48, BUN 17, creatinine 0.4, glucose 75, calcium 7.7. Microbiology: Citrobacter Escherichia (E) coli in the peritoneal fluid. ASSESSMENT AND PLAN: This is a 74-year-old male admitted for presumed perforated bowel, status post exploratory and subsequent peritonitis with Citrobacter Escherichia (E) coli complicated by acute on chronic hypercarbic and hypoxic respiratory failure due to severe emphysema and severe pulmonary hypertension with difficulty clearing his secretions. Still requiring high flow oxygen and Vapotherm. CURRENT ACTIVE ISSUES: 1. Perforated viscus status post exploratory laparotomy. Tolerating an oral diet. Completed a full course of antibiotics. Infectious disease has signed off. The patient has a normal white count, afebrile, tolerating his diet well. 2. Acute encephalopathy secondary to hyperglycemia, chronic hypercapnia, peritonitis with Citrobacter Escherichia (E) coli. Completed a full course of antibiotics with intravenous Zosyn. Afebrile. No white count. Tolerating his diet well. Frequent orientation. 3. Acute on chronic hypoxic, hypercapnic respiratory failure with underlying severe emphysema, severe pulmonary hypertension, severe tricuspid regurgitation with subsequent cor pulmonale and diastolic heart failure. THe patient had been on intravenous Lasix while he was on TPN. He is currently on Vapotherm to be titrated to an oxygen saturation of 88 to 92%. He is currently DO NOT RESUSCITATE, DO NOT INTUBATE. 4. Presumed gastrointestinal bleed. Hemoglobin is 7.4. The patient is unstable and not cleared to undergo esophagogastroduodenoscopy (EGD) or colonoscopy at this time. He is off of any anticoagulation or antiplatelet medications. He is being transfused 2 red blood cells with repeat hemoglobin and hematocrit. 5. Protein calorie malnutrition. Body Mass Index (BMI) of 19. Belt Brander consulted. 6. Depression. On chronic Zoloft. 7. Atrial flutter with rapid ventricular response, status post one dose of IV amiodarone, currently sinus rhythm. No anticoagulation due to presumed gastrointestinal bleed. 8. Diet. Currently on regular diet with Ensure supplement. 9. Acute thrombocytopenia. Heparin induced thrombocytopenia (HIT) antibodies was negative. We have discontinued Lovenox. 10. Pulmonary nodular. Outpatient followup. 11. Chronic alcoholism. Clinical [place] Withdrawal Assessment (CIWA) protocol. 12. Deep vein thrombosis (DVT) prophylaxis. Compression stockings.
[2019-04-19] MEDS: TAMSULOSIN 0.4 MG CAP PO SCH (22:00)
[2019-04-19] MEDS: ATORVASTATIN 20 MG TAB PO SCH (22:01)
[2019-04-19] MEDS: OLANZapine 5 MG TAB PO SCH (22:01)
[2019-04-20] MEDS: HumaLOG INSULIN (NovoLOG) PER UNIT SC SCH
[2019-04-20 03:19] VITALS: O2SAT 100
[2019-04-20] MEDS: IPRATROPIUM 0.5MG/ALBUTEROL 2.5MG INH SOL UD 3ML (DUONEB)(J7620) NEB SCH ×4 (03:19→23:48)
[2019-04-20] MEDS: SODIUM CHLORIDE HYPERTONIC 3% 15ML NEB SOL INH SCH ×4 (03:19→23:48)
[2019-04-20 03:29] VITALS: O2SAT 99
[2019-04-20 05:51] LABS: HEMATOCRIT 31.8 % (42.0-52.0); HEMOGLOBIN 9.9 g/dl (13.5-17.5); MEAN CORPUSCULAR HEMOGLOBIN 28.9 pg (27.0-33.0); MEAN CORPUSCULAR HGB CONC 31.1 g/dl (32.0-36.5); RED BLOOD COUNT 3.42 10^6/uL (4.30-6.10); WHITE BLOOD COUNT 9.5 10^3/uL (4.0-10.0)
[2019-04-20 05:52] LABS: PLATELET COUNT, AUTOMATED 88 10^3/uL (150-450)
[2019-04-20 06:00] VITALS: BP 106/55
[2019-04-20] MEDS: SODIUM CHLORIDE 0.9% INJ 10 ML SYR IV SCH ×2 (06:00→17:24)
[2019-04-20 09:00] VITALS: O2SAT 95
[2019-04-20] MEDS: SENOKOT S TAB PO SCH ×2 (09:00→20:18)
[2019-04-20] MEDS: MULTIVITAMINS/MINERALS THERAP 1 TAB PO SCH (10:41)
[2019-04-20] MEDS: MAGNESIUM OXIDE 400 MG TAB (MAG-OX) PO SCH ×2 (10:41→20:48)
[2019-04-20] MEDS: PANTOPRAZOLE 40MG TAB (PROTONIX) PO SCH ×2 (10:41→20:48)
[2019-04-20] MEDS: SERTRALINE HCL 50 MG TAB PO SCH (10:42)
[2019-04-20] MEDS: FOLIC ACID 1 MG TAB PO SCH (10:42)
[2019-04-20] MEDS: SUCRALFATE 1 GM TAB PO SCH ×4 (10:42→20:48)
[2019-04-20] MEDS ORDERED: FUROSEMIDE 20 MG TAB PO ONE (12:00)
[2019-04-20 14:00] VITALS: BP 106/56
--- NOTE | 2019-04-20 15:53 | REP ---
CHEST, PORTABLE: AP portable view of the chest is performed and compared to a prior study of 04/18/2019. Right lung is clear. Parenchymal opacity along the left diaphragm is stable. Heart and mediastinum are unchanged. IMPRESSION: No change left lung opacity. Electronically Signed by Nader Robertson MD 04/21/2019 04:58 P
[2019-04-20] MEDS: FUROSEMIDE 20 MG TAB PO SCH (17:24)
[2019-04-20] MEDS: OLANZapine 5 MG TAB PO SCH (20:47)
[2019-04-20] MEDS: TAMSULOSIN 0.4 MG CAP PO SCH (20:48)
[2019-04-20] MEDS: ATORVASTATIN 20 MG TAB PO SCH (20:51)
[2019-04-20 22:00] VITALS: BP 100/52
[2019-04-21] MEDS: IPRATROPIUM 0.5MG/ALBUTEROL 2.5MG INH SOL UD 3ML (DUONEB)(J7620) NEB SCH ×4 (03:29→18:41)
[2019-04-21] MEDS: SODIUM CHLORIDE HYPERTONIC 3% 15ML NEB SOL INH SCH ×4 (03:29→18:42)
[2019-04-21 06:00] VITALS: BP 122/61
[2019-04-21] MEDS: SODIUM CHLORIDE 0.9% INJ 10 ML SYR IV SCH ×2 (06:35→11:04)
[2019-04-21 07:35] LABS: HEMATOCRIT 33.5 % (42.0-52.0); HEMOGLOBIN 10.3 g/dl (13.5-17.5); MEAN CORPUSCULAR HEMOGLOBIN 28.6 pg (27.0-33.0); MEAN CORPUSCULAR HGB CONC 30.7 g/dl (32.0-36.5); MEAN CORPUSCULAR VOLUME 93.1 fl (80.0-96.0); PLATELET COUNT, AUTOMATED 123 10^3/uL (150-450); WHITE BLOOD COUNT 9.1 10^3/uL (4.0-10.0)
[2019-04-21 08:00] VITALS: BP 122/65
[2019-04-21] MEDS: SENOKOT S TAB PO SCH ×2 (09:00→22:08)
[2019-04-21] MEDS: FOLIC ACID 1 MG TAB PO SCH (09:14)
[2019-04-21] MEDS: SUCRALFATE 1 GM TAB PO SCH ×4 (09:14→22:08)
[2019-04-21] MEDS: PANTOPRAZOLE 40MG TAB (PROTONIX) PO SCH ×2 (09:15→22:08)
[2019-04-21] MEDS: FUROSEMIDE 20 MG TAB PO SCH ×2 (09:15→16:43)
[2019-04-21] MEDS: SERTRALINE HCL 50 MG TAB PO SCH (09:15)
[2019-04-21] MEDS: MAGNESIUM OXIDE 400 MG TAB (MAG-OX) PO SCH ×2 (09:15→22:08)
[2019-04-21] MEDS: MULTIVITAMINS/MINERALS THERAP 1 TAB PO SCH (09:15)
--- NOTE | 2019-04-21 09:55 | IPN ---
DATE: 04/20/2019 The patient is still dyspneic while ambulating 3-5 feet, trying to get to the commode at the bedside, requiring one person assistance. We were able to titrate down his oxygen, off of the Vapotherm currently, and participating with physical therapy. The patient denies any fever or chills. He is tolerating his diet without nausea, vomiting, or abdominal pain. He currently complains of shortness of breath when he walks and even with sitting down. Chest x-ray on 04/18/2019 shows atelectasis in the left lower lobe as well as a small left effusion, mild interstitial edema. The patient was given Lasix. Output was 700 yesterday, 565 this morning. Current weight is 54 kg from peak weight of 61.5 kg. The patient otherwise denies any dizziness, lightheadedness, or near syncopal episodes. Glucose yesterday at 06:00 p.m. was 61. He is only on a sliding scale insulin, not eating very much with decrease in oral intake, but no vomiting. The patient said that he has had bowel movements, four bowel movements yesterday. The patient had a low hemoglobin yesterday of 7.4, transfused two units red blood cells (RBCs) with current hemoglobin of 10.6, platelet count is increasing to 88 from previous platelet count of 40. PHYSICAL EXAMINATION: VITAL SIGNS: Temperature 97.5, pulse 72, respiratory rate 19, blood pressure 106/55, 91% on four liters nasal cannula, 36% FiO2. GENERAL: The patient has moderate respiratory distress. He does have use of respiratory accessory muscles, abdominal retractions. No tracheal deviation. No cyanosis. No stridor. LUNGS: Diminished, bilateral crackles. HEART: S1, S2, sinus rhythm. ABDOMEN: Distended. Clean mid surgical scar. Some tenderness on deep palpation. No rebound or guarding. Positive bowel sounds. No serous or sanguinous drainage. No purulence. EXTREMITIES: No pitting edema. LABORATORY DATA: White count 9.5, hemoglobin 9.9, hematocrit 31.8, platelet count of 88. Sodium 139, potassium 4, chloride 93, bicarbonate 48, BUN 17, creatinine 0.4, glucose of 75, calcium of 7.7, TSH of 10.5, procalcitonin 0.37. Body fluid: Citrobacter and E. coli. Hemoccult stool 04/14/2019 positive. ASSESSMENT AND PLAN: A 74-year-old male admitted under surgical services for presumed perforated bowel, status post exploratory laparotomy with peritonitis, complicated by acute on chronic hypercarbic and hypoxic respiratory failure due to severe emphysema and pulmonary hypertension and difficulty clearing his secretions. The patient has had some difficulty being weaned off the Vapotherm. CURRENT ISSUES: 1. Peritonitis secondary to bowel perforation, positive Citrobacter and Escherichia (E) coli on peritoneal fluid, completed 10 days of intravenous Zosyn with normal white count, afebrile and tolerating his diet well. 2. Acute on chronic hypoxic and hypercarbic respiratory failure due to severe emphysema and pulmonary hypertension, complicated by sepsis from peritonitis secondary to bowel perforation. He continues to complain of a cough productive of white sputum and hypoxia. We will recheck a chest x-ray to rule out pulmonary edema. The patient had been on daily intravenous Lasix prior to stopping the total parenteral nutrition (TPN), is still requiring a significant amount of oxygen, currently at six liters nasal cannula with previous x-ray on 04/18/2019 showing mild interstitial edema. Quite hypoxic as he ambulated three feet from the bed today. Continue with gentle diuresis with Lasix 20 mg twice a day. Ejection fraction of 60% to 65% on prior echocardiogram with severe left ventricular hypertrophy (LVH), dilated right ventricle, and hypokinesis with grade 1 diastolic dysfunction. 3. Moderately severe pulmonary hypertension due to end-stage chronic obstructive pulmonary disease (COPD) and severe emphysema, complicating his care with severe pulmonary hypertension. 4. Severe tricuspid insufficiency, secondary to moderately severe pulmonary hypertension from emphysema. Not a surgical candidate. He will continue with supportive care with strict intake and output, daily weights, fluid restriction, and Lasix diuresis if blood pressure permits. 5. Protein calorie malnutrition, body mass index (BMI) of 19.2. Tolerating his diet for now, avoiding fluid excess.
[2019-04-21 14:00] VITALS: BP 116/52
[2019-04-21] MEDS: ACETAMINOPHEN TAB 650MG DOSE (2X325MG) PO PRN (15:36)
[2019-04-21] MEDS: NICOTINE 14 MG/24 HR TRANSDERMAL TD PRN (17:12)
[2019-04-21 22:00] VITALS: BP 127/73
[2019-04-21] MEDS: TAMSULOSIN 0.4 MG CAP PO SCH (22:08)
[2019-04-21] MEDS: ATORVASTATIN 20 MG TAB PO SCH (22:08)
[2019-04-21] MEDS: OLANZapine 5 MG TAB PO SCH (22:12)
[2019-04-22] MEDS: SODIUM CHLORIDE HYPERTONIC 3% 15ML NEB SOL INH SCH ×4 (01:44→18:22)
[2019-04-22] MEDS: IPRATROPIUM 0.5MG/ALBUTEROL 2.5MG INH SOL UD 3ML (DUONEB)(J7620) NEB SCH ×4 (01:44→18:22)
[2019-04-22 06:00] VITALS: BP 139/76
[2019-04-22 06:12] LABS: HEMATOCRIT 30.9 % (42.0-52.0); HEMOGLOBIN 9.5 g/dl (13.5-17.5); MEAN CORPUSCULAR HEMOGLOBIN 28.6 pg (27.0-33.0); MEAN CORPUSCULAR HGB CONC 30.7 g/dl (32.0-36.5); MEAN CORPUSCULAR VOLUME 93.1 fl (80.0-96.0); PLATELET COUNT, AUTOMATED 154 10^3/uL (150-450); RED BLOOD COUNT 3.32 10^6/uL (4.30-6.10); WHITE BLOOD COUNT 8.1 10^3/uL (4.0-10.0)
[2019-04-22] MEDS: SODIUM CHLORIDE 0.9% INJ 10 ML SYR IV SCH ×2 (06:20→17:07)
[2019-04-22] MEDS: SUCRALFATE 1 GM TAB PO SCH ×4 (09:30→21:27)
[2019-04-22] MEDS: PANTOPRAZOLE 40MG TAB (PROTONIX) PO SCH ×2 (09:30→21:26)
[2019-04-22] MEDS: FOLIC ACID 1 MG TAB PO SCH (09:30)
[2019-04-22] MEDS: SENOKOT S TAB PO SCH ×2 (09:31→21:26)
[2019-04-22] MEDS: SERTRALINE HCL 50 MG TAB PO SCH (09:31)
[2019-04-22] MEDS: MAGNESIUM OXIDE 400 MG TAB (MAG-OX) PO SCH ×2 (09:31→21:26)
[2019-04-22] MEDS: MULTIVITAMINS/MINERALS THERAP 1 TAB PO SCH (09:31)
[2019-04-22] MEDS: FUROSEMIDE 20 MG TAB PO SCH ×2 (09:31→17:07)
[2019-04-22 14:00] VITALS: BP 105/59
[2019-04-22 21:00] VITALS: O2SAT 97
[2019-04-22] MEDS: NICOTINE 14 MG/24 HR TRANSDERMAL TD SCH (21:00)
[2019-04-22] MEDS: TAMSULOSIN 0.4 MG CAP PO SCH (21:26)
[2019-04-22] MEDS: ATORVASTATIN 20 MG TAB PO SCH (21:26)
[2019-04-22] MEDS: OLANZapine 5 MG TAB PO SCH (21:31)
[2019-04-22 22:00] VITALS: BP 139/69
[2019-04-23] VITALS (15 sets, daily range): BP systolic 82–136; BP diastolic 43–77
[2019-04-23] MEDS ORDERED: NS 250 ML IV ONE (01:15)
[2019-04-23] MEDS: IPRATROPIUM 0.5MG/ALBUTEROL 2.5MG INH SOL UD 3ML (DUONEB)(J7620) NEB SCH ×4 (01:34→21:00)
[2019-04-23] MEDS: SODIUM CHLORIDE HYPERTONIC 3% 15ML NEB SOL INH SCH ×4 (01:34→20:59)
[2019-04-23] MEDS: SODIUM CHLORIDE 0.9% INJ 10 ML SYR IV SCH ×2 (03:00→18:16)
[2019-04-23 06:03] LABS: BASO % 0.1 % (0.0-1.0); HEMATOCRIT 29.4 % (42.0-52.0); LYMPH # 0.4 10^3/uL (1.5-5.0); LYMPH % 5.8 % (24.0-44.0); MEAN CORPUSCULAR HEMOGLOBIN 28.3 pg (27.0-33.0); MEAN CORPUSCULAR HGB CONC 30.6 g/dl (32.0-36.5); MEAN CORPUSCULAR VOLUME 92.5 fl (80.0-96.0); MONO # 0.4 10^3/uL (0.0-0.8); MONO % 5.2 % (0.0-5.0); NEUTROPHILS # 6.5 10^3/uL (1.5-8.5); NEUTROPHILS % 88.5 % (36.0-66.0); PLATELET COUNT, AUTOMATED 187 10^3/uL (150-450); RED BLOOD COUNT 3.18 10^6/uL (4.30-6.10); WHITE BLOOD COUNT 7.4 10^3/uL (4.0-10.0)
[2019-04-23 06:44] LABS: BLOOD UREA NITROGEN 19 MG/DL (7-18); CALCIUM LEVEL 7.8 MG/DL (8.8-10.2); CARBON DIOXIDE LEVEL 44 MEQ/L (21-32); CHLORIDE LEVEL 92 MEQ/L (98-107); CREATININE FOR GFR 0.44 MG/DL (0.70-1.30); GLOMERULAR FILTRATION RATE > 60.0 (>42); GLUCOSE, FASTING 66 MG/DL (70-100); POTASSIUM SERUM 4.7 MEQ/L (3.5-5.1); SODIUM LEVEL 138 MEQ/L (136-145)
[2019-04-23] MEDS ORDERED: FUROSEMIDE 20 MG/2 ML VIAL (J1940) IV SCH (07:45)
[2019-04-23] MEDS ORDERED: PANTOPRAZOLE SODIUM 40 MG in D5W 50 ML IV SCH (08:00)
[2019-04-23] MEDS ORDERED: PANTOPRAZOLE 40MG INJ (PROTONIX) (C9113) IV ONE (08:00)
[2019-04-23] MEDS: FOLIC ACID 1 MG TAB PO SCH (09:52)
[2019-04-23] MEDS: MAGNESIUM OXIDE 400 MG TAB (MAG-OX) PO SCH ×2 (09:52→20:01)
[2019-04-23] MEDS: MULTIVITAMINS/MINERALS THERAP 1 TAB PO SCH (09:53)
[2019-04-23] MEDS: NICOTINE 14 MG/24 HR TRANSDERMAL TD SCH (09:53)
[2019-04-23] MEDS: SERTRALINE HCL 50 MG TAB PO SCH (09:53)
[2019-04-23] MEDS: SENOKOT S TAB PO SCH ×2 (09:53→20:02)
[2019-04-23] MEDS: SUCRALFATE 1 GM TAB PO SCH ×4 (09:53→20:01)
[2019-04-23] MEDS ORDERED: METOPROLOL TART 50 MG TAB PO ONE (11:15)
--- NOTE | 2019-04-23 11:33 | IPNPDOC ---
Date Seen The patient was seen on 04/23/19. Progress Note Changed to acute status due to bloody BM last night, drop in Hgb, and Afib with RVR 150bpm plan: transfer to PCU IV cardizem 20 mg iv bolus, 5mg/hr if hypotensive, ns 500ml iv bolus vs. iv amiodarone 150 mg iv x 1. protonix iv rbc transfusion serial hgb VS, I&O, 24H, Fishbone Vital Signs/I&O Vital Signs Date Time Temp Pulse Resp B/P (MAP) Pulse Ox O2 Delivery O2 Flow Rate FiO2 04/23/19 11:22 96.4 110 20 110/64 98 Venturi Mask 15.0 40 I&O- Last 24 Hours up to 6 AM 04/23/19 06:00 Intake Total 460 ml Output Total 1925 ml Balance -1465 ml Laboratory Data 24H LABS Laboratory Tests 2 04/22/19 17:50: Bedside Glucose (Misc Panel) 64L 04/23/19 05:37: Immature Granulocyte % (Auto) 0.4, Neutrophils (%) (Auto) 88.5H, Lymphocytes (%) (Auto) 5.8L, Monocytes (%) (Auto) 5.2H, Eosinophils (%) (Auto) 0.0, Basophils (%) (Auto) 0.1, Neutrophils # (Auto) 6.5, Lymphocytes # (Auto) 0.4L, Monocytes # (Auto) 0.4, Eosinophils # (Auto) 0.0, Basophils # (Auto) 0.0, Nucleated Red Blood Cells % (auto) 0.0, Anion Gap 2L, Glomerular Filtration Rate > 60.0, Calcium Level 7.8L 04/23/19 11:14: CBC/BMP Laboratory Tests 04/23/19 00:00 04/23/19 05:37 Microbiology Microbiology 04/14/19 Stool Occult Blood (GEOVANNA) - Final, Complete JYOTI TYSON MD Apr 23, 2019 11:32
[2019-04-23 11:53] LABS: CK-MB VALUE MASS 1.7 NG/ML (<3.6); CPK CREATINE PHOSPHOKINASE 25 U/L (39-308); TROPONIN I < 0.02 NG/ML (< 0.10)
[2019-04-23] MEDS ORDERED: diltiaZEM 125 MG in NS 100 ML IV SCH (12:30)
--- NOTE | 2019-04-23 13:19 | IPN ---
DATE: 04/23/2019 Overnight, the patient has large, maroon-colored stool, complained of some dizziness and worsening shortness of breath, with drop in hemoglobin from 10.3 on 04/21/2019 to 8.5 today. Patient is kept nothing by mouth and Protonix drip, given 2 units red blood cell transfusion. Oxygen saturation decreased, currently on Hernandez mask at 4 liters nasal cannula, saturating 94%. Patient was orthostatic at 1:00 a.m. Systolic pressure of 118 supine and standing of 82. VITAL SIGNS: Temperature 97.6, pulse 92, respiratory rate 17, blood pressure 127/66, 94% on Hernandez mask 4 liters nasal cannula. GENERAL: Patient has light pallor, no icterus or jaundice. Dry mucous membranes. Cachectic appearing with bitemporal wheezing. LUNGS: Diminished with bilateral crackles. HEART: S1, S2. Sinus rhythm. ABDOMEN: Midabdominal surgical scars well-healed. No purulence. No tenderness. Positive bowel sounds all four quadrants. EXTREMITIES: No cyanosis, clubbing or any pitting edema. LABORATORY DATA: White count 7.4, hemoglobin 9, hematocrit 29, platelet count 187. Sodium 138, potassium 4.7, chloride 92, bicarbonate 44, BUN 19, creatinine 0.44, glucose of 66. ASSESSMENT AND PLAN: This is a 74-year-old male initially admitted for perforated bowel status post exploratory laparotomy with peritonitis complicated by acute on chronic hypercarbic respiratory failure due to severe emphysema and pulmonary hypertension with persistent mucous plugs, remains chronically hypoxic. ACTIVE ISSUES: 1. Acute gastrointestinal (GI) bleed with bloody, maroon stool. Patient recently treated for perforated ulcer. He will be kept nothing by mouth, put on Protonix drip, as well as heparin flushes will be held. Reconsult surgery. Patient is a poor candidate for repeat esophagogastroduodenoscopy (EGD) and colonoscopy due to persistent hypoxemia and severe pulmonary hypertension. 2. Peritonitis secondary to bowel perforation. Positive Citrobacter Escherichia (E) coli. Patient had completed 10 days of intravenous (IV) Zosyn. 3. Acute on chronic hypercarbic hypoxic respiratory failure due to severe emphysema, pulmonary hypertension and sepsis from peritonitis secondary to bowel perforation. He continues to have significant issues with mucous plugging and is currently undergoing chest physiotherapy and was able to come off of the Vapotherm. Due to acute anemia, patient will be transfused red blood cells in order to increase his oxygen carrying capacity. 4. Moderately severe pulmonary hypertension due to end-stage COPD and severe emphysema. Appears to be complicated his care due to severe pulmonary hypertension. 5. Severe tricuspid insufficiency secondary to moderately severe pulmonary hypertension from emphysema. Patient is kept with strict intake and output (I and O), daily weights, with restriction and Lasix diuresis. 6. Protein calorie malnutrition. Body mass index (BMI) is 19. Tolerating his diet, but needs to be kept nothing by mouth for now due to acute blood loss.
[2019-04-23 19:54] LABS: HEMOGLOBIN 11.6 g/dl (13.5-17.5)
[2019-04-23] MEDS: OLANZapine 5 MG TAB PO SCH (20:01)
[2019-04-23] MEDS: PANTOPRAZOLE 40MG INJ (PROTONIX) (C9113) IV SCH (20:01)
[2019-04-23] MEDS: TAMSULOSIN 0.4 MG CAP PO SCH (20:01)
[2019-04-23] MEDS: ATORVASTATIN 20 MG TAB PO SCH (20:02)
--- NOTE | 2019-04-23 21:23 | IPN ---
DATE: 04/21/2019 The patient is currently getting physiotherapy, says that he is able to handle secretions a little better, breathing is better, his appetite is still pretty low, not eating more than 50% of his food. He still appears cachectic, open to drinking Ensure. No chest pain, pressure, tightness or lightheadedness, fevers, still with a cough productive of white yellow sputum, afebrile, temperature 97, pulse 67, respiratory rate 20, blood pressure 122/65, 94% on 4 liters hypo-canula. General: The patient appears cachectic, older than his stated age, disheveled appearing with dry mucous membranes and poor dentition. No jugular venous distension (JVD) or thyromegaly or cervical lymphadenopathy. Lungs: Diminished with fine crackles at the bases. Faint expiratory wheezing. Diminished breath sounds. Heart: S1, S2, sinus rhythm. Abdomen: Soft, nontender, nondistended. Midline incision appears clean and dry. No serosanguineous drainage. Extremities: No cyanosis, clubbing or pitting edema. Some muscle atrophy. LABORATORY DATA: White count 9.1, hemoglobin 10, hematocrit 33, platelet count 123. Sodium 139, potassium 4, chloride 93, bicarbonate 48, BUN 17, creatinine 0.4, glucose of 75. Body fluid- Citrobacter and Escherichia coli. ASSESSMENT AND PLAN: This is a 74-year-old male, admitted on the surgical services due to recent perforated bowel, status post exploratory laparotomy with peritonitis complicated by acute on chronic hypercarbic, hypoxic respiratory failure due to severe emphysema and moderately severe pulmonary hypertension. Difficulty clearing secretions and having difficulty with having recurrent mucous plugs. CURRENT ISSUES: 1. Peritenontitis secondary to bowel perforation, possible for Citrobacter Escherichia coli in peritoneal fluid. Completed 10 days of IV Zosyn. Normal white count and afebrile, tolerating his diet, this has resolved. 2. Acute on chronic hypoxic hypercarbic respiratory failure due to severe emphysema with moderately severe pulmonary hypertension, complicated by sepsis from peritonitis due to bowel perforation. The patient is unable to clear his secretions. Currently, he is on physiotherapy. He will need subacute rehabilitation and placement down the line. 3. Moderately severe pulmonary hypertension due to end-stage chronic obstructive pulmonary disease (COPD) and severe emphysema complicating his care. He is currently, DO NOT RESUSCITATE, DO NOT INTUBATE. 4. Severe tricuspid insufficiency. Not a surgical candidate, continue with supportive care with supplement oxygen. 5. Hypoxic respiratory failure secondary to severe emphysema, now oxygen dependent. 6. Protein calorie malnutrition. Tolerating his diet for now. Nutrition consulted for failure to thrive. Body mass index (BMI) is 19.
[2019-04-24] VITALS (20 sets, daily range): BP systolic 94–158; BP diastolic 66–90; O2SAT 83–99
--- NOTE | 2019-04-24 00:32 | ECGEPIP ---
[facility] Test Date: 2019-04-23 Pat Name: REAL HICKS Department: Room: [place] [address] Gender: Male Correspondence Clerk: BLADIMIR : 1945 Requested By: JYOTI Rueda Order Number: [id number] Reading MD: Jermaine Arriaza Measurements Intervals [place] Rate: 121 P: MD: 0 QRS: 83 QRSD: 125 T: 77 QT: 307 QTc: 436 Interpretive Statements ATRIAL FIBRILLATION WITH RAPID VENTRICULAR RESPONSE INDETERMINATE AXIS RIGHT BUNDLE BRANCH BLOCK More irregular than tracing done 04-18-19 Electronically Signed on 04-24-2019 0:32:07 EDT by Jermaine Arriaza
[2019-04-24 01:03] LABS: HEMATOCRIT 35.4 % (42.0-52.0); HEMOGLOBIN 11.3 g/dl (13.5-17.5)
[2019-04-24] MEDS: IPRATROPIUM 0.5MG/ALBUTEROL 2.5MG INH SOL UD 3ML (DUONEB)(J7620) NEB SCH (02:11)
[2019-04-24] MEDS: SODIUM CHLORIDE HYPERTONIC 3% 15ML NEB SOL INH SCH ×4 (02:11→20:28)
[2019-04-24 03:48] LABS: HEMATOCRIT 34.5 % (42.0-52.0); HEMOGLOBIN 11.1 g/dl (13.5-17.5)
[2019-04-24] MEDS: SODIUM CHLORIDE 0.9% INJ 10 ML SYR IV SCH ×2 (05:24→18:42)
[2019-04-24] MEDS: SUCRALFATE 1 GM TAB PO SCH ×4 (07:30→20:53)
[2019-04-24] MEDS ORDERED: LEVALBUTEROL 1.25 MG/0.5 ML CONCENTRATE NEB NEB ONE (07:30)
[2019-04-24 07:39] LABS: HEMATOCRIT 36.9 % (42.0-52.0); HEMOGLOBIN 11.7 g/dl (13.5-17.5); MEAN CORPUSCULAR HEMOGLOBIN 28.7 pg (27.0-33.0); MEAN CORPUSCULAR HGB CONC 31.7 g/dl (32.0-36.5); MEAN CORPUSCULAR VOLUME 90.7 fl (80.0-96.0); PLATELET COUNT, AUTOMATED 215 10^3/uL (150-450); RED BLOOD COUNT 4.07 10^6/uL (4.30-6.10); WHITE BLOOD COUNT 6.2 10^3/uL (4.0-10.0)
--- NOTE | 2019-04-24 07:46 | REP ---
Portable chest, 07:24 a.m., single AP view with the patient sitting: Comparisons are the portable chest of 04/20/[address] of 05/07/2019. The left hemidiaphragm is obscured. This may be from the left pleural effusion identified on the comparison CT. There is focal infiltrate/atelectasis along the left cardiac border, unchanged from the comparison portable chest study. The right lung is clear. Cardiac size normal. 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 On plain films, this results in the artifactual exaggeration of the left hilus. Impression: No significant interval change from 04/20/2019. Electronically Signed by Nader Moe MD 04/24/2019 07:38 A
[2019-04-24 08:32] LABS: BLOOD UREA NITROGEN 25 MG/DL (7-18); CALCIUM LEVEL 8.9 MG/DL (8.8-10.2); CARBON DIOXIDE LEVEL 46 MEQ/L (21-32); CHLORIDE LEVEL 92 MEQ/L (98-107); CK-MB VALUE MASS 1.6 NG/ML (<3.6); CPK CREATINE PHOSPHOKINASE 25 U/L (39-308); CREATININE FOR GFR 0.49 MG/DL (0.70-1.30); GLOMERULAR FILTRATION RATE > 60.0 (>42); GLUCOSE, FASTING 73 MG/DL (70-100); NT-PRO BNP 7533 PG/ML (<125); POTASSIUM SERUM 3.6 MEQ/L (3.5-5.1); SODIUM LEVEL 139 MEQ/L (136-145); TROPONIN I < 0.02 NG/ML (< 0.10)
[2019-04-24] MEDS: SERTRALINE HCL 50 MG TAB PO SCH (10:01)
[2019-04-24] MEDS: SENOKOT S TAB PO SCH ×2 (10:01→20:53)
[2019-04-24] MEDS: MAGNESIUM OXIDE 400 MG TAB (MAG-OX) PO SCH ×2 (10:01→20:53)
[2019-04-24] MEDS: MULTIVITAMINS/MINERALS THERAP 1 TAB PO SCH (10:01)
[2019-04-24] MEDS: FOLIC ACID 1 MG TAB PO SCH (10:01)
[2019-04-24] MEDS: NICOTINE 14 MG/24 HR TRANSDERMAL TD SCH (10:02)
[2019-04-24] MEDS: PANTOPRAZOLE 40MG INJ (PROTONIX) (C9113) IV SCH ×2 (10:02→20:54)
[2019-04-24] MEDS: LEVALBUTEROL 1.25 MG/0.5 ML CONCENTRATE NEB INH SCH ×4 (11:31→23:58)
[2019-04-24 12:31] LABS: HEMOGLOBIN 11.4 g/dl (13.5-17.5)
--- NOTE | 2019-04-24 14:08 | IPNPDOC ---
Date Seen The patient was seen on 04/24/19. Progress Note SUBJECTIVE: denies cp, pressure, tightness. Tele: sinus. 3moderate sized maroon stools overnight. s/p rbc transfusion with hgb 10. still hypoxic on face mask not stable for EGD. npo with TPN. no abd pain,nausea, vomiting, or hematemesis. PHYSICAL EXAMINATION: VITALS: PLS SEE BELOW General: The patient appears cachectic, older than his stated age, disheveled appearing with dry mucous membranes and poor dentition. No jugular venous distension (JVD) or thyromegaly or cervical lymphadenopathy. Lungs: Diminished with fine crackles at the bases. Faint expiratory wheezing. Diminished breath sounds. Heart: S1, S2, sinus rhythm. Abdomen: Soft, nontender, nondistended. Midline incision appears clean and dry. No serosanguineous drainage. Extremities: No cyanosis, clubbing or pitting edema. Some muscle atrophy. LABORATORY DATA/MICROBIOLOGY: PLS SEE BELOW ASSESSMENT AND PLAN: This is a 74-year-old male, admitted on the surgical services due to recent perforated bowel, status post exploratory laparotomy with peritonitis complicated by acute on chronic hypercarbic, hypoxic respiratory failure due to severe emphysema and moderately severe pulmonary hypertension. Difficulty clearing secretions and having difficulty with having recurrent mucous plugs. CURRENT ISSUES: Acute blood loss anemia with 3 maroon stools overnight requiring blood transfusion. still hemodynamically stable, but on full supportive care, and was transfused rbc and maintaining hemoglobin. PPI IV bid. serial hct monitoring. unable to scope due to poor respiratory status requiring face mask. Active GI bleed. unable to scope due to respiratory failure. will need to stabilize respiratory status prior to evaluation. will need to optimize hgb and avoid antiplatelet or anticoagulants. npo . back on tpn Failure to thrive with bmi 19. severe protein calorie malnutrition tpn due npo status . air antisubmarine officer consulted . Paroxysmal Atrial Fibrillation: transferred to PCU yesterday due to rate of 150 which resolved without cardizem. cannot be anticoagulated due to active GI bleed. Peritonitis secondary to bowel perforation, with Citrobacter Escherichia coli in peritoneal fluid. Completed 10 days of IV Zosyn. Normal white count and afebrile, tolerating his diet, this has resolved. Acute on chronic hypoxic hypercarbic respiratory failure due to severe emphysema with moderately severe pulmonary hypertension, complicated by sepsis from peritonitis due to bowel perforation. The patient is unable to clear his secretions. Currently, he is on physiotherapy. He will need subacute rehabilitation and placement down the line. Moderately severe pulmonary hypertension due to end-stage chronic obstructive pulmonary disease (COPD) and severe emphysema complicating his care. He is currently, DO NOT RESUSCITATE, DO NOT INTUBATE. Severe tricuspid insufficiency. Not a surgical candidate, continue with supportive care with supplement oxygen. mucus plugging unable to clear secretions. chest physiotherapy. diet; npo codestatus: dnr dni prognosis: grim. VS, I&O, 24H, Fishbone Vital Signs/I&O Vital Signs Date Time Temp Pulse Resp B/P (MAP) Pulse Ox O2 Delivery O2 Flow Rate FiO2 04/24/19 12:00 97.1 80 18 141/71 (94) 97 Aerosol Mask 04/24/19 10:55 98 04/24/19 09:00 10.0 I&O- Last 24 Hours up to 6 AM 04/24/19 06:00 Intake Total 1340 ml Output Total 1300 ml Balance 40 ml Laboratory Data 24H LABS Laboratory Tests 2 04/23/19 18:19: Bedside Glucose (Misc Panel) 159H 04/24/19 00:23: Bedside Glucose (Misc Panel) 78L 04/24/19 06:24: Bedside Glucose (Misc Panel) 87 04/24/19 07:22: Nucleated Red Blood Cells % (auto) 0.0, Anion Gap 1L, Glomerular Filtration Rate > 60.0, Lactic Acid Level 0.6, Calcium Level 8.9, Total Creatine Kinase 25L, Creatine Kinase MB 1.6, Creatine Kinase MB Relative Index 6.40H, Troponin I < 0.02, [id number]-[id number]-Type Natriuretic Peptide 7533H, Thyroid Stimulating Hormone (TSH) 10.300H 04/24/19 12:47: Bedside Glucose (Misc Panel) 116H CBC/BMP Laboratory Tests 04/23/19 19:36 04/24/19 00:24 04/24/19 03:41 04/24/19 07:22 04/24/19 12:15 Microbiology Microbiology 04/23/19 Stool Occult Blood (GEOVANNA) - Final, Complete 04/14/19 Stool Occult Blood (GEOVANNA) - Final, Complete JYOTI TYSON MD Apr 24, 2019 14:08
[2019-04-24] MEDS: NS 1,000 ML IV SCH (14:50)
[2019-04-24] MEDS ORDERED: MULTIVITAMIN -ADULT INJECTION 10 ML, CR/CU/SE/MN/ZN INJ 1 ML in AMINO AC/ELECTROLYTE/DE... IV SCH (18:00)
[2019-04-24] MEDS ORDERED: FAT EMULSION IV 20% 500 ML IV SCH (18:00)
[2019-04-24 18:09] LABS: HEMATOCRIT 38.8 % (42.0-52.0); HEMOGLOBIN 12.2 g/dl (13.5-17.5)
[2019-04-24] MEDS: TAMSULOSIN 0.4 MG CAP PO SCH (20:53)
[2019-04-24] MEDS: ATORVASTATIN 20 MG TAB PO SCH (20:53)
[2019-04-24] MEDS: OLANZapine 5 MG TAB PO SCH (20:53)
[2019-04-24] MEDS ORDERED: NS 500 ML IV ONE (23:15)
[2019-04-24 23:42] LABS: HEMATOCRIT 38.4 % (42.0-52.0); HEMOGLOBIN 12.2 g/dl (13.5-17.5)
[2019-04-25] VITALS (14 sets, daily range): BP systolic 140–160; BP diastolic 73–92; O2SAT 88–100
[2019-04-25] MEDS: LEVALBUTEROL 1.25 MG/0.5 ML CONCENTRATE NEB INH SCH ×5 (04:21→20:44)
[2019-04-25] MEDS: SODIUM CHLORIDE HYPERTONIC 3% 15ML NEB SOL INH SCH ×4 (04:21→20:44)
[2019-04-25] MEDS: NS 1,000 ML IV SCH ×2 (05:11→23:22)
[2019-04-25] MEDS: SODIUM CHLORIDE 0.9% INJ 10 ML SYR IV SCH ×2 (05:11→18:02)
[2019-04-25 05:14] LABS: HEMATOCRIT 35.3 % (42.0-52.0); HEMOGLOBIN 11.1 g/dl (13.5-17.5); MEAN CORPUSCULAR HEMOGLOBIN 29.1 pg (27.0-33.0); MEAN CORPUSCULAR HGB CONC 31.4 g/dl (32.0-36.5); MEAN CORPUSCULAR VOLUME 92.7 fl (80.0-96.0); PLATELET COUNT, AUTOMATED 226 10^3/uL (150-450); RED BLOOD COUNT 3.81 10^6/uL (4.30-6.10); WHITE BLOOD COUNT 5.7 10^3/uL (4.0-10.0)
[2019-04-25 05:39] LABS: MB/CK RELATIVE INDEX 4.76 (< OR =4); TROPONIN I 0.02 NG/ML (< 0.10)
[2019-04-25 05:48] LABS: BLOOD UREA NITROGEN 23 MG/DL (7-18); CALCIUM LEVEL 8.2 MG/DL (8.8-10.2); CARBON DIOXIDE LEVEL 48 MEQ/L (21-32); CHLORIDE LEVEL 95 MEQ/L (98-107); GLOMERULAR FILTRATION RATE > 60.0 (>42); GLUCOSE, FASTING 152 MG/DL (70-100); POTASSIUM SERUM 3.6 MEQ/L (3.5-5.1); SODIUM LEVEL 142 MEQ/L (136-145)
--- NOTE | 2019-04-25 06:56 | ECGEPIP ---
[facility] Test Date: 2019-04-24 Pat Name: REAL HICKS Department: Room: [place] [address] Gender: Male Scarfer Operator: MELISA : 1945 Requested By: CARL CARNEY Order Number: [id number] Reading MD: Cecilia Castaneda Measurements Intervals [place] Rate: 151 P: 265 AK: 102 QRS: 117 QRSD: 122 T: -47 QT: 293 QTc: 466 Interpretive Statements UNDETERMINED RHYTHM INCREASED RATE POSSIBLE A FLUTTER PRIOR WITH AFIB RIGHT AXIS DEVIATION NEW RIGHT BUNDLE BRANCH BLOCK ST DEPRESSION, CONSIDER SUBENDOCARDIAL INJURY C/W 04/21/19 Electronically Signed on 04-25-2019 6:55:33 EDT by Cecilia Castaneda
--- NOTE | 2019-04-25 07:00 | ECGEPIP ---
[facility] Test Date: 2019-04-25 Pat Name: RAEL HICKS Department: Room: [place] [address] Gender: Male Beam Dyer Operator: MELISA : 1945 Requested By: GABRIEL MCCLURE Order Number: [id number] Reading MD: Cecilia Castaneda Measurements Intervals [place] Rate: 80 P: 72 ND: 151 QRS: 89 QRSD: 134 T: 79 QT: 369 QTc: 427 Interpretive Statements SINUS RHYTHM WITH OCCASIONAL SUPRAVENTRICULAR PREMATURE COMPLEXES INDETERMINATE AXIS RIGHT BUNDLE BRANCH BLOCK SINUS RHYTHM RESTORED IMPROVED ST ABN AXIS CHANGE FROM RT REYEZ ON PRIOR Electronically Signed on 04-25-2019 6:59:56 EDT by Cecilia Castaneda
[2019-04-25] MEDS: PANTOPRAZOLE 40MG INJ (PROTONIX) (C9113) IV SCH ×2 (08:22→20:12)
[2019-04-25] MEDS: NICOTINE 14 MG/24 HR TRANSDERMAL TD SCH (08:23)
[2019-04-25] MEDS: FOLIC ACID 1 MG TAB PO SCH (08:23)
[2019-04-25] MEDS: MULTIVITAMINS/MINERALS THERAP 1 TAB PO SCH (08:23)
[2019-04-25] MEDS: SUCRALFATE 1 GM TAB PO SCH ×4 (08:23→20:13)
[2019-04-25] MEDS: SENOKOT S TAB PO SCH ×2 (08:23→20:13)
[2019-04-25] MEDS: MAGNESIUM OXIDE 400 MG TAB (MAG-OX) PO SCH ×2 (08:23→20:12)
[2019-04-25] MEDS: SERTRALINE HCL 50 MG TAB PO SCH (08:23)
[2019-04-25 12:45] LABS: HEMATOCRIT 35.1 % (42.0-52.0); HEMOGLOBIN 11.1 g/dl (13.5-17.5)
--- NOTE | 2019-04-25 16:17 | IPN ---
DATE: 04/25/2019 Patient had no recurrent episodes of bloody stools. Patient hemoglobin remains steady. He continues to be severely hypoxic, requiring 40% FiO2 on 10 liters by aerosol mask. This morning patient was extremely confused, wanted to get out of bed. He had another bowel movement, which was blood tinged. He is afebrile, blood pressures maintained at 140-160 systolic. He had an episode of tachycardia yesterday, 150 rate, thought to have been atrial flutter. Patient had no intervention and reverted back to sinus rhythm of 60-80. Patient could not be anticoagulated due to recent gastrointestinal (GI) bleed. Unable to be scoped due to severe hypoxia, requiring 40% FiO2 by aerosol mask. Patient otherwise denies any nausea, vomiting. Required a sitter overnight due to increased agitation. He denies any chest pain or pressure. No abdominal pain this morning. No hematemesis. Temperature 97.4, pulse 86, respiratory rate 18, blood pressure 140/73, 96% on 10 liters aerosol mask, 40% FiO2. General: Patient is confused, disoriented to time and place. He does answer questions, though, but per nursing has been hit or miss. This morning he was able to answer appropriate questions for me. HE does have conversational dyspnea, unable to complete 5-word sentences and does use his face mask. No jugular venous distention (JVD). No thyromegaly. No cervical lymphadenopathy. Lungs are diminished with coarse rhonchi. Heart: S1, S2, sinus rhythm. Abdomen has postoperative changes, well healed. Nontender, nondistended. Positive bowel sounds times four quadrants without any rebound. Extremities: No cyanosis, clubbing, or pitting edema. Muscle atrophy and bitemporal wasting. White count 5, hemoglobin 11, hematocrit 35, previous hemoglobin of 12, hematocrit of 38, platelet count 226. Sodium 142, potassium 3.6, chloride 95, bicarbonate 48, BUN 23, creatinine 0.5, glucose 152. Troponin 0.02. Microbiology has been reviewed. IMAGING STUDY: Chest x-ray 04/24/2019: No interval change. Focal infiltrate along the left cardiac border. Right lung is clear. Left pleural effusion. ASSESSMENT AND PLAN: A 74-year-old male with severe emphysema, pulmonary hypertension, admitted to surgical service initially for perforated bowel and subsequent peritonitis, status post laparotomy, complicated by acute on chronic hypoxic and hypercapnic respiratory failure due to severe emphysema, mucous plugging, difficulty clearing secretions, moderate to severe pulmonary hypertension, and mucous plugging. Patient continued to have active gastrointestinal (GI) bleed. Resumed back on the total parenteral nutrition (TPN) nothing by mouth status. ACUTE ISSUES: 1. Acute blood loss anemia. Patient had three maroon-colored stools this past weekend, none overnight. He has been placed on intravenous (IV) Protonix twice a day, blood transfusion, and serial hemoglobin and hematocrit monitoring, which has been stable. No bloody stools from last night. 2. Acute metabolic encephalopathy due to GI bleed. 3. Persistent hypoxia from severe emphysema, mucous plugging, and severe pulmonary hypertension. Patient is requiring a sitter, as he was jumping out of bed this morning and was trying to pull on his mask. He did not want to keep his oxygen mask on. 4. Acute hypoxic hypercarbic respiratory failure due to persistent mucous plugging. Patient had a repeat chest x-ray, which showed a small pleural effusion. He is currently on TPN. We will try to keep to a net-negative balance. 5. Peritonitis secondary to bowel perforation. Culture showing Citrobacter and Escherichia (E) coli in peritoneal fluid. He completed 10 days of IV Zosyn. Currently afebrile with no white count. Diet has been held due to recent acute GI bleed. 6. Actyve GI bleed. Unable to scope due to respiratory failure, so requiring 40% FiO2 of oxygen via face mask. Patient cannot be anticoagulated due to active blood loss secondary to GI bleed despite paroxysmal atrial flutter. 7. Paroxysmal atrial flutter, ventricular rate of 150 last evening, currently stable with sinus rhythm of 60-80 beats per minute. He cannot be anticoagulated due to acute GI bleed requiring blood transfusion. 8. Failure to thrive. Body mass index (BMI) of 41 with severe protein calorie malnutrition. TPN due to nothing by mouth status. Keep to net-negative balance. 9. Acute on chronic hypoxic and hypercarbic respiratory failure, on supplemental oxygen. Patient is still awake and alert, oriented to himself. If patient were to worsen, where he becomes much more obtunded, will check an arterial blood gas (ABG) and may need continuous positive airway pressure (CPAP) back on. 10. Moderate to severe pulmonary hypertension due to end-stage COPD and severe emphysema. Has been complicating his care. We are unable to remove him from full support. He is DO NOT RESUSCITATE, DO NOT INTUBATE. 11. Severe tricuspid insufficiency due to moderately severe pulmonary hypertension. Not a surgical candidate. Continue with supportive care. 12. Mucous plugging. Unable to clear his secretions. Continue with chest physiotherapy. 13. Diet. Nothing by mouth on TPN due to active GI bleed. Unable to scope due to respiratory status. 14. Code status is DO NOT RESUSCITATE/DO NOT INTUBATE.
[2019-04-25] MEDS ORDERED: AMINO AC/ELECTROLYTE/DEX/CALC 2,000 ML IV SCH (18:00)
[2019-04-25] MEDS ORDERED: FAT EMULSION IV 20% 500 ML IV SCH (18:00)
[2019-04-25] MEDS: TAMSULOSIN 0.4 MG CAP PO SCH (20:12)
[2019-04-25] MEDS: OLANZapine 5 MG TAB PO SCH (20:13)
[2019-04-25] MEDS: ATORVASTATIN 20 MG TAB PO SCH (20:13)
[2019-04-26] VITALS (15 sets, daily range): BP systolic 130–146; BP diastolic 66–76; O2SAT 89–98
[2019-04-26] MEDS: LEVALBUTEROL 1.25 MG/0.5 ML CONCENTRATE NEB INH SCH ×6 (00:05→20:11)
[2019-04-26 00:16] LABS: HEMATOCRIT 33.4 % (42.0-52.0); HEMOGLOBIN 10.6 g/dl (13.5-17.5)
[2019-04-26] MEDS: SODIUM CHLORIDE HYPERTONIC 3% 15ML NEB SOL INH SCH ×4 (04:08→20:11)
[2019-04-26] MEDS: SODIUM CHLORIDE 0.9% INJ 10 ML SYR IV SCH ×2 (05:01→16:50)
[2019-04-26 05:33] LABS: HEMATOCRIT 34.1 % (42.0-52.0); HEMOGLOBIN 10.8 g/dl (13.5-17.5); MEAN CORPUSCULAR HEMOGLOBIN 29.2 pg (27.0-33.0); MEAN CORPUSCULAR HGB CONC 31.7 g/dl (32.0-36.5); MEAN CORPUSCULAR VOLUME 92.2 fl (80.0-96.0); PLATELET COUNT, AUTOMATED 213 10^3/uL (150-450); WHITE BLOOD COUNT 7.7 10^3/uL (4.0-10.0)
[2019-04-26 05:52] LABS: BLOOD UREA NITROGEN 18 MG/DL (7-18); CALCIUM LEVEL 7.8 MG/DL (8.8-10.2); CARBON DIOXIDE LEVEL 42 MEQ/L (21-32); CHLORIDE LEVEL 99 MEQ/L (98-107); CREATININE FOR GFR 0.49 MG/DL (0.70-1.30); GLOMERULAR FILTRATION RATE > 60.0 (>42); GLUCOSE, FASTING 128 MG/DL (70-100); SODIUM LEVEL 144 MEQ/L (136-145)
[2019-04-26] MEDS ORDERED: POTASSIUM CHLORIDE 10 MEQ SR TABLET PO ONE (06:15)
[2019-04-26] MEDS: SUCRALFATE 1 GM TAB PO SCH ×4 (07:30→20:25)
[2019-04-26] MEDS: MULTIVITAMINS/MINERALS THERAP 1 TAB PO SCH (09:00)
[2019-04-26] MEDS: SENOKOT S TAB PO SCH ×2 (09:00→20:26)
[2019-04-26] MEDS: MAGNESIUM OXIDE 400 MG TAB (MAG-OX) PO SCH ×2 (09:00→20:25)
[2019-04-26] MEDS: FOLIC ACID 1 MG TAB PO SCH (09:00)
[2019-04-26] MEDS: NICOTINE 14 MG/24 HR TRANSDERMAL TD SCH (10:43)
[2019-04-26] MEDS: PANTOPRAZOLE 40MG INJ (PROTONIX) (C9113) IV SCH ×2 (10:43→20:24)
[2019-04-26] MEDS: SERTRALINE HCL 50 MG TAB PO SCH (12:49)
--- NOTE | 2019-04-26 16:46 | IPNPDOC ---
Subjective Date Seen The patient was seen on 04/26/19. Subjective Chief Complaint/HPI Dustin was up all night and has slept through most of the morning. He ate the majority of his lunch, and his oxygen needs have been titrated down. His stools are brown. Objective Physical Examination General Exam: Positive: Alert, Cooperative, No Acute Distress Eye Exam: Positive: PERRLA, EOMI; Negative: Sclera icteric ENT Exam: Positive: Other ENT (wearing bipap mask) Neck Exam: Negative: JVD, thyromegaly Chest Exam: Positive: Clear to auscultation Heart Exam: Positive: Rate Normal Abdomen Exam: Positive: Soft; Negative: Normal bowel sounds, Tenderness Extremity Exam: Negative: Clubbing, Cyanosis, Edema Skin Exam: Negative: Rash Neuro Exam: Positive: Normal Speech Psych Exam: Positive: Mood NL; Negative: Anxiety Assessment /Plan Assessment # Acute blood loss anemia due to GIB - unable to scope due to respiratory status - protonix bid - hgb stable # Acute metabolic encephalopathy due to GI bleed - improved, seems to have resolved, but still exhibiting impulsive behavior # Acute on chronic hypoxic and hypercarbic respiratory failure # Mucous plugging # COPD with moderate to severe pulmonary hypertension # Severe TR (not operative candidate) - improved - continue sitter # Severe protein calorie malnutrition - stop TPN - continue with diet . # Acute Peritonitis secondary to bowel perforation - Culture + for Citrobacter and E.coli in the peritoneal fluid - s/p IV Zosyn x 10/10 days. # PAF with RVR - rate controlled - not candidate for anticoagulation due to GIB Plan/VTE VTE Prophylaxis Ordered?: Yes VTE Exclusion Mechanical Proph: N/A:VTE Prophy Ordered VTE Exclusion Pharmacological: Thrombocytopenia VS, I&O, 24H, Fishbone Vital Signs/I&O Vital Signs Date Time Temp Pulse Resp B/P (MAP) Pulse Ox O2 Delivery O2 Flow Rate FiO2 04/26/19 14:32 97 High Flow Cannula 3.0 04/26/19 12:52 86 04/26/19 09:44 28 04/26/19 08:11 20 04/26/19 08:00 98.8 146/66 (92) I&O- Last 24 Hours up to 6 AM 04/26/19 05:59 Intake Total 720 ml Output Total 1750 ml Balance -1030 ml Laboratory Data 24H LABS Laboratory Tests 2 04/26/19 00:12: Bedside Glucose (Misc Panel) 143H 04/26/19 05:17: Nucleated Red Blood Cells % (auto) 0.0, Anion Gap 3L, Glomerular Filtration Rate > 60.0, Calcium Level 7.8L CBC/BMP Laboratory Tests 04/25/19 17:49 04/25/19 23:48 04/26/19 05:17 Microbiology Microbiology 04/23/19 Stool Occult Blood (GEOVANNA) - Final, Complete SHIMA ANDRADE MD Apr 26, 2019 16:46
[2019-04-26] MEDS: ATORVASTATIN 20 MG TAB PO SCH (20:24)
[2019-04-26] MEDS: TAMSULOSIN 0.4 MG CAP PO SCH (20:25)
[2019-04-26] MEDS: OLANZapine 5 MG TAB PO SCH (20:26)
[2019-04-27] VITALS (23 sets, daily range): BP systolic 104–148; BP diastolic 62–82; O2SAT 80–99
[2019-04-27] MEDS: LEVALBUTEROL 1.25 MG/0.5 ML CONCENTRATE NEB INH SCH ×7 (00:45→23:58)
[2019-04-27] MEDS: SODIUM CHLORIDE HYPERTONIC 3% 15ML NEB SOL INH SCH ×4 (00:45→20:32)
[2019-04-27] MEDS: SODIUM CHLORIDE 0.9% INJ 10 ML SYR IV SCH ×2 (05:58→18:32)
[2019-04-27 06:14] LABS: HEMATOCRIT 33.6 % (42.0-52.0); HEMOGLOBIN 10.4 g/dl (13.5-17.5); MEAN CORPUSCULAR HEMOGLOBIN 28.8 pg (27.0-33.0); MEAN CORPUSCULAR VOLUME 93.1 fl (80.0-96.0); PLATELET COUNT, AUTOMATED 198 10^3/uL (150-450); RED BLOOD COUNT 3.61 10^6/uL (4.30-6.10); WHITE BLOOD COUNT 6.9 10^3/uL (4.0-10.0)
[2019-04-27 06:42] LABS: BLOOD UREA NITROGEN 17 MG/DL (7-18); CALCIUM LEVEL 7.9 MG/DL (8.8-10.2); CARBON DIOXIDE LEVEL 43 MEQ/L (21-32); CHLORIDE LEVEL 100 MEQ/L (98-107); CREATININE FOR GFR 0.41 MG/DL (0.70-1.30); GLOMERULAR FILTRATION RATE > 60.0 (>42); GLUCOSE, FASTING 72 MG/DL (70-100); POTASSIUM SERUM 3.5 MEQ/L (3.5-5.1); SODIUM LEVEL 143 MEQ/L (136-145)
[2019-04-27] MEDS: SUCRALFATE 1 GM TAB PO SCH ×4 (07:30→20:59)
[2019-04-27] MEDS: SERTRALINE HCL 50 MG TAB PO SCH (08:22)
[2019-04-27] MEDS: MAGNESIUM OXIDE 400 MG TAB (MAG-OX) PO SCH ×2 (08:23→20:59)
[2019-04-27] MEDS: MULTIVITAMINS/MINERALS THERAP 1 TAB PO SCH ×2 (08:23→08:35)
[2019-04-27] MEDS: FOLIC ACID 1 MG TAB PO SCH (08:23)
[2019-04-27] MEDS: PANTOPRAZOLE 40MG INJ (PROTONIX) (C9113) IV SCH ×2 (08:24→21:00)
[2019-04-27] MEDS: NICOTINE 14 MG/24 HR TRANSDERMAL TD SCH (08:26)
[2019-04-27] MEDS: SENOKOT S TAB PO SCH ×2 (08:27→20:59)
[2019-04-27] MEDS ORDERED: LORazepam 2 MG/ML VIAL (J2060) IV STA (09:37)
[2019-04-27] MEDS ORDERED: LORazepam 2 MG/ML VIAL (J2060) As Ordered ONE (09:38)
[2019-04-27] MEDS ORDERED: levETIRAcetam INJection 500 MG in D5W MINI-BAG PLUS 100 ML IV SCH (10:00)
--- NOTE | 2019-04-27 10:18 | REP ---
CT brain without contrast: History: Seizure. Comparison head CT study April 08, 2019. CT findings: Digital preliminary electronic scale tester radiograph is unremarkable. The patient is edentulous. Bony calvarium is intact. There is heavy vascular calcification in the distal vertebral and distal carotid arteries. The visualized paranasal sinuses are clear. No intraorbital abnormality is appreciated. On soft tissue window settings, there is mild generalized atrophy. There are punctate physiologic calcification of the basal ganglia again noted unchanged. There is no evidence of intracranial hemorrhage, extra-axial fluid collection, mass, or midline shift. Impression: Vascular calcification and mild diffuse atrophy. No acute intracranial abnormality. Electronically Signed by Bonilla Covington MD 04/27/2019 10:09 A
[2019-04-27 10:37] LABS: ABG BASE EXCESS 14.3 (-2.0-2.0); ABG HCO3 41.1 MEQ/L (22.0-26.0); ABG O2 SATURATION 94.4 % (95.0-99.0); ABG PARTIAL PRESSURE O2 70.5 mmHg (75.0-100.0); ABG pH (ARTERIAL) 7.426 UNITS (7.350-7.450)
[2019-04-27 10:42] LABS: ABG PARTIAL PRESSURE CO2 63.9 mmHg (35.0-45.0)
[2019-04-27 11:25] LABS: PHOSPHORUS LEVEL 2.9 MG/DL (2.5-4.9)
--- NOTE | 2019-04-27 13:16 | IPNPDOC ---
Subjective Date Seen The patient was seen on 04/27/19. Subjective Chief Complaint/HPI Camacho is experiencing what the staff describe as absence seizures, he has had a couple episodes this morning. Where his eyes roll back and be comes unresponsive for a brief period of time, he is not post-ictal. No arrhythmias are noted on tele during these episodes. His vitals are quite stable. He has not received any new medications. Repeat ABG looks relatively great. Mag and phos level are stable. CT head does not show and hemorrhage. He was given keppra IV 500 mg bid. EEG is pending Objective Physical Examination General Exam: Positive: Alert, Cooperative, No Acute Distress Eye Exam: Positive: PERRLA, Conjunctiva & lids normal, EOMI; Negative: Sclera icteric ENT Exam: Positive: Other ENT (wearing bipap mask) Neck Exam: Negative: JVD, thyromegaly Chest Exam: Positive: Clear to auscultation Heart Exam: Positive: Rate Normal Abdomen Exam: Positive: Soft; Negative: Normal bowel sounds, Tenderness Extremity Exam: Negative: Clubbing, Cyanosis, Edema Skin Exam: Negative: Rash Neuro Exam: Positive: Normal Speech, Strength at 5/5 X4 ext, Normal Tone, Sensation Intact, Cranial Nerves 3-12 NL Psych Exam: Positive: Mood NL; Negative: Anxiety Assessment /Plan Assessment # Acute blood loss anemia due to GIB - unable to scope due to respiratory status - protonix bid - hgb stable # Altered mental status r/o absence seizure - consult neurology - empiric keppra IV 500 mg bid - EEG pending - MRI brain # Acute metabolic encephalopathy due to GI bleed - improved, seems to have resolved, but still exhibiting impulsive behavior # Acute on chronic hypoxic and hypercarbic respiratory failure # Mucous plugging # COPD with moderate to severe pulmonary hypertension # Severe TR (not operative candidate) - improved - continue sitter # Severe protein calorie malnutrition - stopped TPN - continue with diet . # Acute Peritonitis secondary to bowel perforation - Culture + for Citrobacter and E.coli in the peritoneal fluid - s/p IV Zosyn x 10/10 days. # PAF with RVR - rate controlled - not candidate for anticoagulation due to GIB Plan/VTE VTE Prophylaxis Ordered?: Yes VTE Exclusion Mechanical Proph: N/A:VTE Prophy Ordered VTE Exclusion Pharmacological: Thrombocytopenia VS, I&O, 24H, Fishbone Vital Signs/I&O Vital Signs Date Time Temp Pulse Resp B/P (MAP) Pulse Ox O2 Delivery O2 Flow Rate FiO2 04/27/19 12:00 97.1 70 20 129/67 (87) 85 High Flow Cannula 3.0 04/26/19 16:05 40 I&O- Last 24 Hours up to 6 AM 04/27/19 06:00 Intake Total 2070 ml Output Total 3425 ml Balance -1355 ml Laboratory Data 24H LABS Laboratory Tests 2 04/27/19 05:55: Nucleated Red Blood Cells % (auto) 0.0, Anion Gap 0L, Glomerular Filtration Rate > 60.0, Calcium Level 7.9L, Phosphorus Level 2.9, Magnesium Level 2.0 04/27/19 08:37: Bedside Glucose (Misc Panel) 182H 04/27/19 10:26: Blood Gas Bicarbonate Standard 38.0H, Arterial Blood pH 7.426, Arterial Blood Partial Pressure CO2 63.9*H, Arterial Blood Partial Pressure O2 70.5L, Arterial Blood Total CO2 43.0H, Arterial Blood HCO3 41.1H, Arterial Blood Base Excess 14.3H, Arterial Blood Oxygen Saturation 94.4L CBC/BMP Laboratory Tests 04/27/19 05:55 Microbiology Microbiology 04/23/19 Stool Occult Blood (GEOVANNA) - Final, Complete SHIMA ANDRADE MD Apr 27, 2019 13:15
--- NOTE | 2019-04-27 17:33 | REP ---
MRI brain without contrast: History: Altered mental status, rule out mass causing seizure. Comparison made with today's CT study. Technique: Axial and sagittal imaging planes are utilized for T1 and T2-weighted scans. Sequences include spin-echo, fast spin echo, FLAIR, and diffusion weighted sequences. MRI findings: There is some motion artifact on initial FLAIR sequence. This was repeated. No bony calvarial lesion is seen. No intraorbital abnormality is seen. There is some filling of the mastoid sinuses bilaterally, mild in degree. No other paranasal sinus disease is seen. On diffusion weighted scans, there is no evidence of restricted diffusion to suggest acute ischemia or abscess. There is no evidence of intracranial hemorrhage. Minimal small vessel changes are noted. No mass or midline shift is seen. Impression: No acute intracranial abnormality. Electronically Signed by Bonilla Covington MD 04/27/2019 06:02 P
[2019-04-27] MEDS: TAMSULOSIN 0.4 MG CAP PO SCH (20:59)
[2019-04-27] MEDS: ATORVASTATIN 20 MG TAB PO SCH (20:59)
[2019-04-27] MEDS: OLANZapine 5 MG TAB PO SCH (21:00)
[2019-04-27] MEDS: levETIRAcetam INJection 500 MG in D5W MINI-BAG PLUS 100 ML IV SCH (22:18)
[2019-04-28] VITALS (23 sets, daily range): BP systolic 122–159; BP diastolic 67–86; O2SAT 76–100
[2019-04-28] MEDS: SODIUM CHLORIDE HYPERTONIC 3% 15ML NEB SOL INH SCH ×5 (05:17→20:04)
[2019-04-28] MEDS: LEVALBUTEROL 1.25 MG/0.5 ML CONCENTRATE NEB INH SCH ×6 (05:17→20:04)
[2019-04-28] MEDS: SODIUM CHLORIDE 0.9% INJ 10 ML SYR IV SCH ×2 (05:25→17:10)
[2019-04-28 06:07] LABS: HEMATOCRIT 32.9 % (42.0-52.0); HEMOGLOBIN 10.1 g/dl (13.5-17.5); MEAN CORPUSCULAR HGB CONC 30.7 g/dl (32.0-36.5); MEAN CORPUSCULAR VOLUME 94.5 fl (80.0-96.0); PLATELET COUNT, AUTOMATED 213 10^3/uL (150-450); RED BLOOD COUNT 3.48 10^6/uL (4.30-6.10); WHITE BLOOD COUNT 5.1 10^3/uL (4.0-10.0)
[2019-04-28 06:29] LABS: BLOOD UREA NITROGEN 20 MG/DL (7-18); CALCIUM LEVEL 8.1 MG/DL (8.8-10.2); CARBON DIOXIDE LEVEL 40 MEQ/L (21-32); CHLORIDE LEVEL 105 MEQ/L (98-107); CREATININE FOR GFR 0.46 MG/DL (0.70-1.30); GLOMERULAR FILTRATION RATE > 60.0 (>42); GLUCOSE, FASTING 67 MG/DL (70-100); POTASSIUM SERUM 3.6 MEQ/L (3.5-5.1); SODIUM LEVEL 146 MEQ/L (136-145)
[2019-04-28] MEDS: PANTOPRAZOLE 40MG INJ (PROTONIX) (C9113) IV SCH ×2 (08:08→20:00)
[2019-04-28] MEDS: MAGNESIUM OXIDE 400 MG TAB (MAG-OX) PO SCH ×2 (08:09→20:00)
[2019-04-28] MEDS: SENOKOT S TAB PO SCH ×2 (08:09→20:00)
[2019-04-28] MEDS: FOLIC ACID 1 MG TAB PO SCH (08:09)
[2019-04-28] MEDS: MULTIVITAMINS/MINERALS THERAP 1 TAB PO SCH (08:09)
[2019-04-28] MEDS: SUCRALFATE 1 GM TAB PO SCH ×4 (08:09→20:00)
[2019-04-28] MEDS: SERTRALINE HCL 50 MG TAB PO SCH (08:09)
[2019-04-28] MEDS: NICOTINE 14 MG/24 HR TRANSDERMAL TD SCH (08:10)
--- NOTE | 2019-04-28 10:20 | CR ---
DATE OF CONSULTATION: 04/28/2019 REFERRING PROVIDER: Dr. Prosper Caceres. REASON FOR THE CONSULTATION: Suspected seizures. The patient is a 74-year-old male who was admitted to [facility] with findings of perforated posterior diverticulum, free air in the bowel requiring emergency exploratory laparotomy and surgical repair. During this complex hospitalization, the patient was noted in the morning of 04/27/2019 to have two episodes of unresponsiveness. The patient was in conversation suddenly became unresponsive. His eyes rolled back to his head. The patient was not noted to have any tonic or clonic activity. He was unable to be engaged for at least 1-2 minutes it seems. When the symptoms were over, the patient was back to baseline without any postictal state. He was unaware of the event happening. Soon after, another event occurred where the nursing staff stated it lasted much longer but could not quantitate time. The patient subsequently was started on levetiracetam 500 mg twice a day and in the afternoon has not had any further episodes of seizure-like activity. EEG has been ordered and is pending. An MRI of the brain has been completed, which is negative for any acute stroke. The patient does not have any prior history of seizures. It is quite possible that due to the underlying medical complications and conditions he is during his seizure threshold was compromised. He appears to have had clinically what sounds to be a complex partial seizure. For now he will remain on antiseizure medications due to these two events. PAST MEDICAL HISTORY: Chronic obstructive pulmonary disease. Hypertension. Diastolic heart failure. Schizophrenia. Gastrointestinal bleeding. Hyperlipidemia. Depression. PAST SURGICAL HISTORY: Left shoulder surgery. Right knee surgery. Left rib fracture. The patient reports neck surgery as anterior cervical scar. He is quite weak in his upper extremities. I suspect he may have had cervical spine surgery. Exploratory laparotomy 04/08/2019. FAMILY HISTORY: Noncontributory. SOCIAL HISTORY: Patient is a tobacco smoker. Denies use of any illicit drugs. The patient does drink alcohol. ALLERGIES: NO KNOWN DRUG ALLERGIES. HOME MEDICATIONS: Please see HPI. HOSPITAL MEDICATIONS: - tamsulosin 0.4 mg by mouth nightly - sodium chloride 10 mL peripherally inserted central catheter (PICC) line IV, sodium chloride 10 mL as needed IV - atorvastatin 20 mg by mouth nightly - olanzapine 50 mg daily at bedtime - sertraline 50 mg by mouth nightly - senna one tablet by mouth twice a day - folic acid 1 mg daily - multivitamin by mouth daily - sucralfate 1 gram by mouth nightly - ondansetron 4 mg IV every 4 hours as needed nausea, vomiting - acetaminophen 650 mg as needed temperature greater than 101 or pain. REVIEW OF SYSTEMS: 12-point review of systems obtained is negative except as per history of present illness (HPI). PHYSICAL EXAMINATION: Blood pressure is 129/67, pulse rate 70, respiratory rate is 20, temperature is 97.1 degrees Fahrenheit, oxygenation is 85% on 3 liters nasal cannula. The patient is awake, alert, oriented to his name and location. The patient is able to follow all commands. Pupils are 2.5 mm, round, reactive to light. Extraocular movements are intact in all directions without nystagmus. Sensation V1, V2-V3 is intact to light touch. No facial asymmetry to activation. Palate elevates symmetrically. Tongue is midline. No weakness of sternocleidomastoids bilaterally. Hearing is subjectively equal to finger rub. There is no pronator drift. Strength is 5/5 involving his tibialis anterior. Quadriceps appear to be 5-, iliopsoas appear to be 5-, deltoids are 4+, biceps are 4/5, triceps are 4/5. Sensory is intact to light touch in all four extremities. Coordination: There does not appear to be any gross ataxia, dysmetria. ASSESSMENT: Two episodes of impaired consciousness lasting greater than 1-2 minutes without any postictal state suspect complex partial seizure. No evidence of telemetry changes to suspect transient hypotension syncope. Blood pressure was reported normal by nursing staff during these events. No MRI evidence to identify any stroke at this time. PLAN: 1. Agree with continuation of Keppra 5 mg by mouth twice a day. 2. Agree with EEG. 3. Seizure precautions. 4. Continue supportive medical care.
[2019-04-28] MEDS: levETIRAcetam INJection 500 MG in D5W MINI-BAG PLUS 100 ML IV SCH (11:34)
--- NOTE | 2019-04-28 11:47 | IPNPDOC ---
Subjective Date Seen The patient was seen on 04/28/19. Subjective Chief Complaint/HPI Awake and alert. No further changes in mental status observed by staff since starting keppra Objective Physical Examination General Exam: Positive: Alert, Cooperative, No Acute Distress Eye Exam: Positive: PERRLA, Conjunctiva & lids normal, EOMI; Negative: Sclera icteric ENT Exam: Positive: Mucous membr. moist/pink Neck Exam: Negative: JVD, thyromegaly Chest Exam: Positive: Clear to auscultation Heart Exam: Positive: Rate Normal Abdomen Exam: Positive: Soft; Negative: Normal bowel sounds, Tenderness Extremity Exam: Negative: Clubbing, Cyanosis, Edema Skin Exam: Negative: Rash Neuro Exam: Positive: Normal Speech, Strength at 5/5 X4 ext, Cranial Nerves 3- 12 NL Psych Exam: Positive: Mood NL; Negative: Anxiety Assessment /Plan Assessment # Acute blood loss anemia due to GIB - unable to scope due to respiratory status - protonix bid - hgb stable # Generalized weakness due to acute illness - resume PT/OT # Altered mental status r/o absence seizure - neuro consult reviewed - change to oral keppra - EEG pending - MRI brain is normal # Acute metabolic encephalopathy due to GI bleed - improved, seems to have resolved, but still exhibiting impulsive behavior # Acute on chronic hypoxic and hypercarbic respiratory failure # Mucous plugging # COPD with moderate to severe pulmonary hypertension # Severe TR (not operative candidate) - improved - continue sitter # Severe protein calorie malnutrition - stopped TPN - continue with diet . # Acute Peritonitis secondary to bowel perforation - Culture + for Citrobacter and E.coli in the peritoneal fluid - s/p IV Zosyn x 10/10 days. # PAF with RVR - rate controlled - not candidate for anticoagulation due to GIB Plan/VTE VTE Prophylaxis Ordered?: Yes VTE Exclusion Mechanical Proph: N/A:VTE Prophy Ordered VTE Exclusion Pharmacological: Thrombocytopenia VS, I&O, 24H, Fishbone Vital Signs/I&O Vital Signs Date Time Temp Pulse Resp B/P (MAP) Pulse Ox O2 Delivery O2 Flow Rate FiO2 04/28/19 08:17 97.6 75 20 124/86 (99) 99 Nasal Cannula 8.0 04/28/19 01:00 28 I&O- Last 24 Hours up to 6 AM 04/28/19 06:00 Intake Total 945 ml Output Total 1650 ml Balance -705 ml Laboratory Data 24H LABS Laboratory Tests 2 04/28/19 05:53: Nucleated Red Blood Cells % (auto) 0.0, Anion Gap 1L, Glomerular Filtration Rate > 60.0, Calcium Level 8.1L CBC/BMP Laboratory Tests 04/28/19 05:53 Microbiology Microbiology 04/23/19 Stool Occult Blood (GEOVANNA) - Final, Complete SHIMA ANDRADE MD Apr 28, 2019 11:47
[2019-04-28] MEDS: levETIRAcetam 250MG TABLET (KEPPRA) PO SCH (20:00)
[2019-04-28] MEDS: TAMSULOSIN 0.4 MG CAP PO SCH (20:00)
[2019-04-28] MEDS: ATORVASTATIN 20 MG TAB PO SCH (20:00)
[2019-04-28] MEDS: OLANZapine 5 MG TAB PO SCH (20:01)
[2019-04-29] VITALS (26 sets, daily range): BP systolic 108–166; BP diastolic 58–90; O2SAT 89–100
[2019-04-29] MEDS: LEVALBUTEROL 1.25 MG/0.5 ML CONCENTRATE NEB INH SCH ×6 (00:06→19:53)
[2019-04-29] MEDS: SODIUM CHLORIDE HYPERTONIC 3% 15ML NEB SOL INH SCH ×4 (00:07→19:53)
--- NOTE | 2019-04-29 00:34 | EEG ---
DATE OF PROCEDURE: 04/28/2019 REFERRING PHYSICIAN: Dr. Nader Gonzales DIAGNOSIS: Altered mental status, possible absence seizures. EEG NUMBER: [id number] HISTORY: The patient is a 74-year-old man who was admitted at [facility] and had two episodes of unresponsiveness without shaking. This EEG was done to rule out epileptic potential. He is currently taking Zoloft, sucralfate, Zyprexa, folic acid, multivitamin, Flomax, Keppra. TECHNICAL DESCRIPTION: This digital EEG was recorded by 21 scalp, ear and two EKG electrodes and was reviewed in bipolar and referential montages following reformatting in 10-20 international electrode placement system. INTERPRETATION: The patient was noted to be in awake and drowsy states during this EEG. Resting background rhythm consisted of 3-4 Hz theta activity and delta activity. Frontal intermittent rhythmic delta activity was noted bilaterally on a few occasions. No clear sleep stages were identified. Hyperventilation could not be performed. Photic stimulation remained unremarkable. EKG revealed normal sinus rhythm. No focal, lateralizing or epileptiform abnormalities were seen. No relevant clinical activity was noted. CONCLUSION: This EEG in awake, drowsy states is abnormal due to presence of generalized slowing and disorganization of background and frontal intermittent rhythmic delta activity/FIRDA consistent with nonspecific diffuse cerebral dysfunction such as seen in encephalopathy due to multiple potential causes including toxic, metabolic, infectious, medication related, multifocal structural brain abnormalities. No epileptiform abnormalities were seen. Clinical correlation is recommended.
[2019-04-29 05:24] LABS: HEMATOCRIT 35.4 % (42.0-52.0); HEMOGLOBIN 10.6 g/dl (13.5-17.5); MEAN CORPUSCULAR HEMOGLOBIN 28.8 pg (27.0-33.0); MEAN CORPUSCULAR HGB CONC 29.9 g/dl (32.0-36.5); MEAN CORPUSCULAR VOLUME 96.2 fl (80.0-96.0); PLATELET COUNT, AUTOMATED 229 10^3/uL (150-450); RED BLOOD COUNT 3.68 10^6/uL (4.30-6.10); WHITE BLOOD COUNT 4.4 10^3/uL (4.0-10.0)
[2019-04-29 05:48] LABS: BLOOD UREA NITROGEN 20 MG/DL (7-18); CALCIUM LEVEL 8.2 MG/DL (8.8-10.2); CARBON DIOXIDE LEVEL 44 MEQ/L (21-32); CHLORIDE LEVEL 101 MEQ/L (98-107); GLOMERULAR FILTRATION RATE > 60.0 (>42); GLUCOSE, FASTING 65 MG/DL (70-100); POTASSIUM SERUM 3.8 MEQ/L (3.5-5.1); SODIUM LEVEL 143 MEQ/L (136-145)
[2019-04-29] MEDS: SODIUM CHLORIDE 0.9% INJ 10 ML SYR IV SCH ×2 (06:01→17:11)
[2019-04-29] MEDS ORDERED: AMIODARONE 200 MG TAB (PACERONE) PO ONE (06:30)
[2019-04-29] MEDS: SENOKOT S TAB PO SCH ×2 (08:32→21:46)
[2019-04-29] MEDS: levETIRAcetam 250MG TABLET (KEPPRA) PO SCH ×2 (08:32→21:44)
[2019-04-29] MEDS: PANTOPRAZOLE 40MG INJ (PROTONIX) (C9113) IV SCH ×2 (08:33→21:44)
[2019-04-29] MEDS: SERTRALINE HCL 50 MG TAB PO SCH (08:33)
[2019-04-29] MEDS: SUCRALFATE 1 GM TAB PO SCH ×4 (08:33→21:45)
[2019-04-29] MEDS: FOLIC ACID 1 MG TAB PO SCH (08:33)
[2019-04-29] MEDS: MAGNESIUM OXIDE 400 MG TAB (MAG-OX) PO SCH ×2 (08:33→21:45)
[2019-04-29] MEDS: MULTIVITAMINS/MINERALS THERAP 1 TAB PO SCH (08:33)
[2019-04-29] MEDS: NICOTINE 14 MG/24 HR TRANSDERMAL TD SCH (08:34)
--- NOTE | 2019-04-29 10:54 | IPNPDOC ---
Subjective Date Seen The patient was seen on 04/29/19. Subjective Chief Complaint/HPI Camacho is awake and alert this morning, he's sitting up in bed consuming his breakfast, and on nc oxygen. [employer] sign out states he was having a.fib with rvr, but tele reviewed this morning and only shows artifact Objective Physical Examination General Exam: Positive: Alert, Cooperative, No Acute Distress Eye Exam: Positive: PERRLA, Conjunctiva & lids normal, EOMI; Negative: Sclera icteric ENT Exam: Positive: Mucous membr. moist/pink Neck Exam: Negative: JVD, thyromegaly Chest Exam: Positive: Clear to auscultation Heart Exam: Positive: Rate Normal Abdomen Exam: Positive: Soft; Negative: Normal bowel sounds, Tenderness Extremity Exam: Negative: Clubbing, Cyanosis, Edema Skin Exam: Negative: Rash Neuro Exam: Positive: Normal Speech, Strength at 5/5 X4 ext, Cranial Nerves 3- 12 NL Psych Exam: Positive: Mood NL; Negative: Anxiety Assessment /Plan Assessment # Acute blood loss anemia due to GIB - unable to scope due to respiratory status - protonix bid - hgb stable # Generalized weakness due to acute illness - PT/OT - agreeable to placement # Altered mental status r/o absence seizure - neuro consult reviewed - change to oral keppra - EEG shows no seizure activity - MRI brain is normal # Acute metabolic encephalopathy due to GI bleed - improved, seems to have resolved, but still exhibiting impulsive behavior # Acute on chronic hypoxic and hypercarbic respiratory failure # Mucous plugging # COPD with moderate to severe pulmonary hypertension # Severe TR (not operative candidate) - improved - continue sitter - wean oxygen as tolerated # Severe protein calorie malnutrition - stopped TPN - continue with diet . # Acute Peritonitis secondary to bowel perforation - Culture + for Citrobacter and E.coli in the peritoneal fluid - s/p IV Zosyn x 10/10 days. # PAF with RVR - rate controlled - not candidate for anticoagulation due to GIB Dispo: - SNF when bed available Plan/VTE VTE Prophylaxis Ordered?: Yes VTE Exclusion Mechanical Proph: N/A:VTE Prophy Ordered VTE Exclusion Pharmacological: Thrombocytopenia VS, I&O, 24H, Fishbone Vital Signs/I&O Vital Signs Date Time Temp Pulse Resp B/P (MAP) Pulse Ox O2 Delivery O2 Flow Rate FiO2 04/29/19 08:00 97.8 65 18 110/67 (81) 98 Nasal Cannula 04/29/19 08:00 5.0 04/28/19 01:00 28 I&O- Last 24 Hours up to 6 AM 04/29/19 06:00 Intake Total 1660 ml Output Total 1425 ml Balance 235 ml Laboratory Data 24H LABS Laboratory Tests 2 04/29/19 05:02: Nucleated Red Blood Cells % (auto) 0.0, Anion Gap , Glomerular Filtration Rate > 60.0, Calcium Level 8.2L CBC/BMP Laboratory Tests 04/29/19 05:02 Microbiology Microbiology 04/23/19 Stool Occult Blood (GE[facility]NA) - Final, Complete SHIMA ANDRADE MD Apr 29, 2019 10:54
[2019-04-29] MEDS: TAMSULOSIN 0.4 MG CAP PO SCH (21:44)
[2019-04-29] MEDS: OLANZapine 5 MG TAB PO SCH (21:46)
[2019-04-29] MEDS: ATORVASTATIN 20 MG TAB PO SCH (21:46)
[2019-04-30] VITALS (24 sets, daily range): BP systolic 112–145; BP diastolic 56–78; O2SAT 86–100
[2019-04-30] MEDS: SODIUM CHLORIDE HYPERTONIC 3% 15ML NEB SOL INH SCH ×4 (02:00→19:49)
[2019-04-30] MEDS: LEVALBUTEROL 1.25 MG/0.5 ML CONCENTRATE NEB INH SCH ×6 (03:19→19:48)
[2019-04-30] MEDS: SODIUM CHLORIDE 0.9% INJ 10 ML SYR IV SCH ×2 (04:49→17:36)
[2019-04-30 06:28] LABS: HEMATOCRIT 34.8 % (42.0-52.0); HEMOGLOBIN 10.4 g/dl (13.5-17.5); MEAN CORPUSCULAR HEMOGLOBIN 28.7 pg (27.0-33.0); MEAN CORPUSCULAR HGB CONC 29.9 g/dl (32.0-36.5); MEAN CORPUSCULAR VOLUME 95.9 fl (80.0-96.0); PLATELET COUNT, AUTOMATED 228 10^3/uL (150-450); RED BLOOD COUNT 3.63 10^6/uL (4.30-6.10); WHITE BLOOD COUNT 5.3 10^3/uL (4.0-10.0)
[2019-04-30 06:56] LABS: BLOOD UREA NITROGEN 18 MG/DL (7-18); CARBON DIOXIDE LEVEL 43 MEQ/L (21-32); CHLORIDE LEVEL 103 MEQ/L (98-107); GLOMERULAR FILTRATION RATE > 60.0 (>42); GLUCOSE, FASTING 71 MG/DL (70-100); POTASSIUM SERUM 3.8 MEQ/L (3.5-5.1); SODIUM LEVEL 144 MEQ/L (136-145)
[2019-04-30] MEDS: PANTOPRAZOLE 40MG INJ (PROTONIX) (C9113) IV SCH ×2 (08:40→20:42)
[2019-04-30] MEDS: SENOKOT S TAB PO SCH ×2 (08:41→20:41)
[2019-04-30] MEDS: NICOTINE 14 MG/24 HR TRANSDERMAL TD SCH (08:41)
[2019-04-30] MEDS: levETIRAcetam 250MG TABLET (KEPPRA) PO SCH ×2 (08:41→20:41)
[2019-04-30] MEDS: SERTRALINE HCL 50 MG TAB PO SCH (08:41)
[2019-04-30] MEDS: MAGNESIUM OXIDE 400 MG TAB (MAG-OX) PO SCH ×2 (08:41→20:39)
[2019-04-30] MEDS: FOLIC ACID 1 MG TAB PO SCH (08:41)
[2019-04-30] MEDS: MULTIVITAMINS/MINERALS THERAP 1 TAB PO SCH (08:41)
[2019-04-30] MEDS: SUCRALFATE 1 GM TAB PO SCH ×4 (08:41→20:41)
--- NOTE | 2019-04-30 12:07 | IPNPDOC ---
Subjective Date Seen The patient was seen on 04/30/19. Subjective Chief Complaint/HPI Camacho is sitting in bed doing leg exercises. He declines any complaints this morning. Sitter at bedside. Objective Physical Examination General Exam: Positive: No Acute Distress Eye Exam: Positive: PERRLA, EOMI; Negative: Sclera icteric ENT Exam: Positive: Atraumatic, Pharynx Normal Neck Exam: Negative: JVD, thyromegaly Chest Exam: Positive: Clear to auscultation Heart Exam: Positive: Rate Normal Abdomen Exam: Positive: Soft; Negative: Normal bowel sounds, Tenderness Extremity Exam: Negative: Clubbing, Cyanosis, Edema Skin Exam: Negative: Rash Psych Exam: Positive: Mental status NL; Negative: Anxiety Assessment /Plan Assessment # Acute blood loss anemia due to GIB - unable to scope due to respiratory status - protonix bid - hgb stable # Generalized weakness due to acute illness - PT/OT - agreeable to placement # Altered mental status r/o absence seizure - neuro consult reviewed - change to oral keppra - EEG shows no seizure activity - MRI brain is normal - no further episodes of altered mental status since starting keppra, will continue # Acute metabolic encephalopathy due to GI bleed - improved, seems to have resolved, but still exhibiting impulsive behavior # Acute on chronic hypoxic and hypercarbic respiratory failure # Mucous plugging # COPD with moderate to severe pulmonary hypertension # Severe TR (not operative candidate) - improved - continue sitter - wean oxygen as tolerated - will likely need bipap qhs # Severe protein calorie malnutrition - stopped TPN - continue with diet . # Acute Peritonitis secondary to bowel perforation - Culture + for Citrobacter and E.coli in the peritoneal fluid - s/p IV Zosyn x 10/10 days. # PAF with RVR - rate controlled - not candidate for anticoagulation due to GIB Dispo: - SNF when bed available Plan/VTE VTE Prophylaxis Ordered?: Yes VTE Exclusion Mechanical Proph: N/A:VTE Prophy Ordered VTE Exclusion Pharmacological: Thrombocytopenia VS, I&O, 24H, Fishbone Vital Signs/I&O Vital Signs Date Time Temp Pulse Resp B/P (MAP) Pulse Ox O2 Delivery O2 Flow Rate FiO2 04/30/19 11:58 97.3 70 18 112/56 (35) 88 High Flow Cannula 2.0 04/28/19 01:00 28 I&O- Last 24 Hours up to 6 AM 04/30/19 06:00 Intake Total 1140 ml Output Total 950 ml Balance 190 ml Laboratory Data 24H LABS Laboratory Tests 2 04/30/19 05:45: Nucleated Red Blood Cells % (auto) 0.0, Anion Gap , Glomerular Filtration Rate > 60.0, Calcium Level 8.0L CBC/BMP Laboratory Tests 04/30/19 05:45 Microbiology Microbiology 04/23/19 Stool Occult Blood ([facility]NA) - Final, Complete SHIMA ANDRADE MD Apr 30, 2019 12:07
[2019-04-30] MEDS: OLANZapine 5 MG TAB PO SCH (20:40)
[2019-04-30] MEDS: TAMSULOSIN 0.4 MG CAP PO SCH (20:40)
[2019-04-30] MEDS: ATORVASTATIN 20 MG TAB PO SCH (20:42)
[2019-05-01] VITALS (22 sets, daily range): BP systolic 100–149; BP diastolic 52–75; O2SAT 84–100
[2019-05-01] MEDS: LEVALBUTEROL 1.25 MG/0.5 ML CONCENTRATE NEB INH SCH ×6 (04:00→19:49)
[2019-05-01] MEDS: SODIUM CHLORIDE HYPERTONIC 3% 15ML NEB SOL INH SCH ×4 (04:14→19:49)
[2019-05-01] MEDS: SODIUM CHLORIDE 0.9% INJ 10 ML SYR IV SCH ×2 (05:17→18:08)
[2019-05-01 05:37] LABS: HEMATOCRIT 33.3 % (42.0-52.0); MEAN CORPUSCULAR HEMOGLOBIN 28.7 pg (27.0-33.0); MEAN CORPUSCULAR VOLUME 95.7 fl (80.0-96.0); PLATELET COUNT, AUTOMATED 250 10^3/uL (150-450); RED BLOOD COUNT 3.48 10^6/uL (4.30-6.10); WHITE BLOOD COUNT 5.7 10^3/uL (4.0-10.0)
[2019-05-01 06:04] LABS: BLOOD UREA NITROGEN 19 MG/DL (7-18); CALCIUM LEVEL 7.9 MG/DL (8.8-10.2); CARBON DIOXIDE LEVEL 42 MEQ/L (21-32); CHLORIDE LEVEL 103 MEQ/L (98-107); CREATININE FOR GFR 0.53 MG/DL (0.70-1.30); GLOMERULAR FILTRATION RATE > 60.0 (>42); GLUCOSE, FASTING 71 MG/DL (70-100); SODIUM LEVEL 144 MEQ/L (136-145)
[2019-05-01] MEDS: PANTOPRAZOLE 40MG INJ (PROTONIX) (C9113) IV SCH ×2 (08:01→21:35)
[2019-05-01] MEDS: levETIRAcetam 250MG TABLET (KEPPRA) PO SCH ×2 (08:01→21:36)
[2019-05-01] MEDS: MULTIVITAMINS/MINERALS THERAP 1 TAB PO SCH (08:02)
[2019-05-01] MEDS: MAGNESIUM OXIDE 400 MG TAB (MAG-OX) PO SCH ×2 (08:02→21:36)
[2019-05-01] MEDS: SUCRALFATE 1 GM TAB PO SCH ×4 (08:02→21:39)
[2019-05-01] MEDS: FOLIC ACID 1 MG TAB PO SCH (08:02)
[2019-05-01] MEDS: SERTRALINE HCL 50 MG TAB PO SCH (08:02)
[2019-05-01] MEDS: SENOKOT S TAB PO SCH ×2 (08:02→21:00)
[2019-05-01] MEDS: NICOTINE 14 MG/24 HR TRANSDERMAL TD SCH (08:03)
[2019-05-01] MEDS: LEVALBUTEROL 1.25 MG/0.5 ML CONCENTRATE NEB INH PRN (08:50)
--- NOTE | 2019-05-01 12:02 | IPNPDOC ---
Subjective Date Seen The patient was seen on 05/01/19. Subjective Chief Complaint/HPI Camacho has an uneventful night. Oxygen needs remained stable at 2-3 lpm nc, he's alert and awake, and sitting up on the edge of the bed eating breakfast Objective Physical Examination General Exam: Positive: Cooperative Eye Exam: Positive: PERRLA, EOMI; Negative: Sclera icteric ENT Exam: Positive: Atraumatic, Pharynx Normal Neck Exam: Negative: JVD, thyromegaly Chest Exam: Positive: Clear to auscultation, Other (non-labored) Heart Exam: Positive: Rate Normal Abdomen Exam: Positive: Soft; Negative: Normal bowel sounds, Tenderness Extremity Exam: Negative: Clubbing, Cyanosis, Edema Skin Exam: Negative: Rash Neuro Exam: Positive: Normal Speech Psych Exam: Positive: Mental status NL; Negative: Anxiety Assessment /Plan Assessment # Acute blood loss anemia due to GIB - unable to scope due to respiratory status - protonix bid - hgb stable # Generalized weakness due to acute illness - PT/OT - agreeable to placement - remove enriquez at discharge # Altered mental status r/o absence seizure - neuro consult reviewed - oral keppra 500 mg bid - EEG shows no seizure activity - MRI brain is normal - no further episodes of altered mental status since starting keppra, will continue # Acute metabolic encephalopathy due to GI bleed - resolved # Acute on chronic hypoxic and hypercarbic respiratory failure # Mucous plugging # COPD with moderate to severe pulmonary hypertension # Severe TR (not operative candidate) - improved - continue sitter - wean oxygen as tolerated # Severe protein calorie malnutrition - stopped TPN - continue with diet . # Acute Peritonitis secondary to bowel perforation - Culture + for Citrobacter and E.coli in the peritoneal fluid - s/p IV Zosyn x 10/10 days. # PAF with RVR - rate controlled - not candidate for anticoagulation due to GIB Dispo: - SNF when bed available Plan/VTE VTE Prophylaxis Ordered?: Yes VTE Exclusion Mechanical Proph: N/A:VTE Prophy Ordered VTE Exclusion Pharmacological: Thrombocytopenia VS, I&O, 24H, Fishbone Vital Signs/I&O Vital Signs Date Time Temp Pulse Resp B/P (MAP) Pulse Ox O2 Delivery O2 Flow Rate FiO2 05/01/19 10:00 98 Nasal Cannula 2.0 05/01/19 08:00 96.8 71 22 130/69 (89) 04/28/19 01:00 28 I&O- Last 24 Hours up to 6 AM 05/01/19 06:00 Intake Total 760 ml Output Total 1400 ml Balance -640 ml Laboratory Data 24H LABS Laboratory Tests 2 05/01/19 05:14: Nucleated Red Blood Cells % (auto) 0.0, Anion Gap , Glomerular Filtration Rate > 60.0, Calcium Level 7.9L CBC/BMP Laboratory Tests 05/01/19 00:09 05/01/19 05:14 Microbiology Microbiology 04/23/19 Stool Occult Blood ([facility]NA) - Final, Complete SHIMA ANDRADE MD May 01, 2019 11:58
[2019-05-01] MEDS: OLANZapine 5 MG TAB PO SCH (21:37)
[2019-05-01] MEDS: ATORVASTATIN 20 MG TAB PO SCH (21:38)
[2019-05-01] MEDS: TAMSULOSIN 0.4 MG CAP PO SCH (21:38)
[2019-05-02] VITALS (10 sets, daily range): BP systolic 114–133; BP diastolic 61–69; O2SAT 80–99
[2019-05-02] MEDS: LEVALBUTEROL 1.25 MG/0.5 ML CONCENTRATE NEB INH SCH ×6 (00:23→19:50)
[2019-05-02] MEDS: SODIUM CHLORIDE HYPERTONIC 3% 15ML NEB SOL INH SCH ×4 (04:41→19:50)
[2019-05-02 05:07] LABS: HEMATOCRIT 32.8 % (42.0-52.0); HEMOGLOBIN 9.9 g/dl (13.5-17.5); MEAN CORPUSCULAR HEMOGLOBIN 28.9 pg (27.0-33.0); MEAN CORPUSCULAR HGB CONC 30.2 g/dl (32.0-36.5); MEAN CORPUSCULAR VOLUME 95.6 fl (80.0-96.0); PLATELET COUNT, AUTOMATED 281 10^3/uL (150-450); RED BLOOD COUNT 3.43 10^6/uL (4.30-6.10); WHITE BLOOD COUNT 5.9 10^3/uL (4.0-10.0)
[2019-05-02] MEDS: SODIUM CHLORIDE 0.9% INJ 10 ML SYR IV SCH ×2 (05:19→17:09)
[2019-05-02 05:26] LABS: BLOOD UREA NITROGEN 18 MG/DL (7-18); CALCIUM LEVEL 7.6 MG/DL (8.8-10.2); CARBON DIOXIDE LEVEL 41 MEQ/L (21-32); CHLORIDE LEVEL 103 MEQ/L (98-107); CREATININE FOR GFR 0.41 MG/DL (0.70-1.30); GLOMERULAR FILTRATION RATE > 60.0 (>42); GLUCOSE, FASTING 77 MG/DL (70-100); POTASSIUM SERUM 4.1 MEQ/L (3.5-5.1); SODIUM LEVEL 144 MEQ/L (136-145)
[2019-05-02] MEDS: MAGNESIUM OXIDE 400 MG TAB (MAG-OX) PO SCH ×2 (08:09→20:31)
[2019-05-02] MEDS: PANTOPRAZOLE 40MG INJ (PROTONIX) (C9113) IV SCH ×2 (08:09→20:31)
[2019-05-02] MEDS: SENOKOT S TAB PO SCH ×2 (08:09→20:31)
[2019-05-02] MEDS: SERTRALINE HCL 50 MG TAB PO SCH (08:09)
[2019-05-02] MEDS: levETIRAcetam 250MG TABLET (KEPPRA) PO SCH ×2 (08:09→20:31)
[2019-05-02] MEDS: NICOTINE 14 MG/24 HR TRANSDERMAL TD SCH ×2 (08:10→08:52)
[2019-05-02] MEDS: MULTIVITAMINS/MINERALS THERAP 1 TAB PO SCH (08:10)
[2019-05-02] MEDS: FOLIC ACID 1 MG TAB PO SCH (08:10)
[2019-05-02] MEDS: SUCRALFATE 1 GM TAB PO SCH ×4 (08:10→20:31)
--- NOTE | 2019-05-02 10:38 | IPNPDOC ---
Text Note Date of Service The patient was seen on 05/02/19. NOTE S: Patient seen and examined at bedside. Sitter at bedside. No acute overnight events reported. O: General Exam: Positive: Cooperative Eye Exam: Positive: PERRLA, EOMI; Negative: Sclera icteric ENT Exam: Positive: Atraumatic, Pharynx Normal Neck Exam: Negative: JVD, thyromegaly Chest Exam: Positive: Clear to auscultation, Other (non-labored) Heart Exam: Positive: Rate Normal Abdomen Exam: Positive: Soft; Negative: Normal bowel sounds, Tenderness Extremity Exam: Negative: Clubbing, Cyanosis, Edema Skin Exam: Negative: Rash Neuro Exam: Positive: Normal Speech Psych Exam: Positive: Mental status NL; Negative: Anxiety A/P: # Acute blood loss anemia due to GIB - unable to scope due to respiratory status - protonix bid - hgb stable # Generalized weakness due to acute illness - PT/OT - agreeable to placement - remove enriquez at discharge # Altered mental status r/o absence seizure - neuro consult reviewed - oral keppra 500 mg bid - EEG shows no seizure activity - MRI brain is normal - no further episodes of altered mental status since starting keppra, will continue - continue sitter # Acute metabolic encephalopathy due to GI bleed - resolved # Acute on chronic hypoxic and hypercarbic respiratory failure # Mucous plugging # COPD with moderate to severe pulmonary hypertension # Severe TR (not operative candidate) - improved - continue sitter - wean oxygen as tolerated # Severe protein calorie malnutrition - continue with diet # Acute Peritonitis secondary to bowel perforation - Culture + for Citrobacter and E.coli in the peritoneal fluid - s/p IV Zosyn, completed 10 days. # PAF with RVR - rate controlled - not candidate for anticoagulation due to GIB Dispo: - SNF when bed available VS,Fishbone, I+O VS, Fishbone, I+O Laboratory Tests 05/02/19 04:53 Vital Signs Date Time Temp Pulse Resp B/P (MAP) Pulse Ox O2 Delivery O2 Flow Rate FiO2 05/02/19 08:00 97.3 74 20 114/61 (78) 98 Aerosol Mask 5.0 28 I&O- Last 24 Hours up to 6 AM 05/02/19 06:00 Intake Total 720 ml Output Total 975 ml Balance -255 ml EBONIE SWEENEY MD May 02, 2019 10:38
[2019-05-02] MEDS: OLANZapine 5 MG TAB PO SCH (20:30)
[2019-05-02] MEDS: SODIUM CHLORIDE 0.9% INJ 10 ML SYR IV PRN (20:31)
[2019-05-02] MEDS: TAMSULOSIN 0.4 MG CAP PO SCH (20:31)
[2019-05-02] MEDS: ATORVASTATIN 20 MG TAB PO SCH (20:31)
[2019-05-03] VITALS (10 sets, daily range): BP systolic 113–139; BP diastolic 61–70; O2SAT 83–91
[2019-05-03] MEDS: LEVALBUTEROL 1.25 MG/0.5 ML CONCENTRATE NEB INH SCH ×6 (01:59→20:01)
[2019-05-03] MEDS: SODIUM CHLORIDE HYPERTONIC 3% 15ML NEB SOL INH SCH ×4 (02:00→20:01)
[2019-05-03] MEDS: SODIUM CHLORIDE 0.9% INJ 10 ML SYR IV SCH ×2 (05:10→17:37)
[2019-05-03 05:30] LABS: HEMATOCRIT 31.9 % (42.0-52.0); HEMOGLOBIN 9.5 g/dl (13.5-17.5); MEAN CORPUSCULAR HEMOGLOBIN 28.7 pg (27.0-33.0); MEAN CORPUSCULAR HGB CONC 29.8 g/dl (32.0-36.5); MEAN CORPUSCULAR VOLUME 96.4 fl (80.0-96.0); PLATELET COUNT, AUTOMATED 289 10^3/uL (150-450); RED BLOOD COUNT 3.31 10^6/uL (4.30-6.10); WHITE BLOOD COUNT 5.8 10^3/uL (4.0-10.0)
[2019-05-03 05:52] LABS: BLOOD UREA NITROGEN 20 MG/DL (7-18); CARBON DIOXIDE LEVEL 44 MEQ/L (21-32); CHLORIDE LEVEL 103 MEQ/L (98-107); CREATININE FOR GFR 0.47 MG/DL (0.70-1.30); GLOMERULAR FILTRATION RATE > 60.0 (>42); GLUCOSE, FASTING 69 MG/DL (70-100); POTASSIUM SERUM 4.5 MEQ/L (3.5-5.1); SODIUM LEVEL 145 MEQ/L (136-145)
[2019-05-03] MEDS: MAGNESIUM OXIDE 400 MG TAB (MAG-OX) PO SCH ×2 (09:12→20:25)
[2019-05-03] MEDS: FOLIC ACID 1 MG TAB PO SCH (09:12)
[2019-05-03] MEDS: SUCRALFATE 1 GM TAB PO SCH ×4 (09:12→20:26)
[2019-05-03] MEDS: PANTOPRAZOLE 40MG INJ (PROTONIX) (C9113) IV SCH ×2 (09:12→20:26)
[2019-05-03] MEDS: SERTRALINE HCL 50 MG TAB PO SCH (09:13)
[2019-05-03] MEDS: MULTIVITAMINS/MINERALS THERAP 1 TAB PO SCH (09:13)
[2019-05-03] MEDS: SENOKOT S TAB PO SCH ×2 (09:13→20:25)
[2019-05-03] MEDS: levETIRAcetam 250MG TABLET (KEPPRA) PO SCH ×2 (09:13→20:25)
[2019-05-03] MEDS: NICOTINE 14 MG/24 HR TRANSDERMAL TD SCH (09:13)
[2019-05-03] MEDS: TAMSULOSIN 0.4 MG CAP PO SCH (20:25)
[2019-05-03] MEDS: OLANZapine 5 MG TAB PO SCH (20:26)
[2019-05-03] MEDS: ATORVASTATIN 20 MG TAB PO SCH (20:26)
[2019-05-04] VITALS (24 sets, daily range): BP systolic 106–125; BP diastolic 56–69; O2SAT 80–100
[2019-05-04] MEDS: SODIUM CHLORIDE HYPERTONIC 3% 15ML NEB SOL INH SCH ×4 (00:52→19:45)
[2019-05-04] MEDS: LEVALBUTEROL 1.25 MG/0.5 ML CONCENTRATE NEB INH SCH ×7 (00:52→23:53)
[2019-05-04] MEDS: SODIUM CHLORIDE 0.9% INJ 10 ML SYR IV SCH ×2 (05:05→17:41)
[2019-05-04 08:49] LABS: HEMATOCRIT 31.1 % (42.0-52.0); HEMOGLOBIN 9.3 g/dl (13.5-17.5); MEAN CORPUSCULAR HEMOGLOBIN 28.9 pg (27.0-33.0); MEAN CORPUSCULAR HGB CONC 29.9 g/dl (32.0-36.5); MEAN CORPUSCULAR VOLUME 96.6 fl (80.0-96.0); PLATELET COUNT, AUTOMATED 302 10^3/uL (150-450); RED BLOOD COUNT 3.22 10^6/uL (4.30-6.10); WHITE BLOOD COUNT 6.6 10^3/uL (4.0-10.0)
[2019-05-04] MEDS: SENOKOT S TAB PO SCH ×2 (09:02→20:24)
[2019-05-04] MEDS: SERTRALINE HCL 50 MG TAB PO SCH (09:02)
[2019-05-04] MEDS: FOLIC ACID 1 MG TAB PO SCH (09:03)
[2019-05-04] MEDS: SUCRALFATE 1 GM TAB PO SCH ×4 (09:03→20:23)
[2019-05-04] MEDS: MULTIVITAMINS/MINERALS THERAP 1 TAB PO SCH (09:03)
[2019-05-04] MEDS: MAGNESIUM OXIDE 400 MG TAB (MAG-OX) PO SCH ×2 (09:03→20:23)
[2019-05-04] MEDS: PANTOPRAZOLE 40MG INJ (PROTONIX) (C9113) IV SCH ×2 (09:03→20:24)
[2019-05-04] MEDS: levETIRAcetam 250MG TABLET (KEPPRA) PO SCH ×2 (09:03→20:23)
[2019-05-04] MEDS: NICOTINE 14 MG/24 HR TRANSDERMAL TD SCH (09:03)
[2019-05-04 09:12] LABS: BLOOD UREA NITROGEN 21 MG/DL (7-18); CALCIUM LEVEL 8.1 MG/DL (8.8-10.2); CARBON DIOXIDE LEVEL 44 MEQ/L (21-32); CHLORIDE LEVEL 103 MEQ/L (98-107); CREATININE FOR GFR 0.44 MG/DL (0.70-1.30); GLOMERULAR FILTRATION RATE > 60.0 (>42); GLUCOSE, FASTING 73 MG/DL (70-100); POTASSIUM SERUM 4.2 MEQ/L (3.5-5.1); SODIUM LEVEL 144 MEQ/L (136-145)
--- NOTE | 2019-05-04 11:36 | IPNPDOC ---
Text Note Date of Service The patient was seen on 05/03/19. NOTE S: Patient seen and examined at bedside. No new medical complaints. No acute overnight events reported. O: General Exam: Positive: Cooperative Eye Exam: Positive: PERRLA, EOMI; Negative: Sclera icteric ENT Exam: Positive: Atraumatic, Pharynx Normal Neck Exam: Negative: JVD, thyromegaly Chest Exam: Positive: Clear to auscultation, Other (non-labored) Heart Exam: Positive: Rate Normal Abdomen Exam: Positive: Soft; Negative: Normal bowel sounds, Tenderness Extremity Exam: Negative: Clubbing, Cyanosis, Edema Skin Exam: Negative: Rash Neuro Exam: Positive: Normal Speech Psych Exam: Positive: Mental status NL; Negative: Anxiety A/P: # Acute blood loss anemia due to GIB - unable to scope due to respiratory status - protonix bid - hgb stable # Generalized weakness due to acute illness - PT/OT - agreeable to placement - remove enriquez at discharge # Altered mental status r/o absence seizure - neuro consult reviewed - oral keppra 500 mg bid - EEG shows no seizure activity - MRI brain is normal - no further episodes of altered mental status since starting keppra, will continue - continue sitter # Acute metabolic encephalopathy due to GI bleed - resolved # Acute on chronic hypoxic and hypercarbic respiratory failure # Mucous plugging # COPD with moderate to severe pulmonary hypertension # Severe TR (not operative candidate) - improved - continue sitter - wean oxygen as tolerated # Severe protein calorie malnutrition - continue with diet # Acute Peritonitis secondary to bowel perforation - Culture + for Citrobacter and E.coli in the peritoneal fluid - s/p IV Zosyn, completed 10 days. # PAF with RVR - rate controlled - not candidate for anticoagulation due to GIB Dispo: - SNF when bed available VS,Fishbone, I+O VS, Fishbone, I+O Laboratory Tests 05/04/19 08:34 Vital Signs Date Time Temp Pulse Resp B/P (MAP) Pulse Ox O2 Delivery O2 Flow Rate FiO2 05/04/19 08:00 3.0 05/04/19 07:51 95 Nasal Cannula 05/04/19 04:00 97.1 60 16 107/56 (73) 05/02/19 16:00 28 I&O- Last 24 Hours up to 6 AM 05/04/19 06:00 Intake Total 960 ml Output Total 1375 ml Balance -415 ml EBONIE SWEENEY MD May 04, 2019 11:36
--- NOTE | 2019-05-04 11:37 | IPNPDOC ---
Text Note Date of Service The patient was seen on 05/04/19. NOTE S: Patient seen and examined at bedside. No new medical complaints. No acute overnight events reported. Patient states he feels better today. O: General Exam: NAD, lying comfortably in bed, chronically ill appearing HEENT: NC/AT Lungs: CTA B/L Heart: +S1S2, RRR Abd: soft, NT, +BS Ext: no edema A/P: # Acute blood loss anemia due to GIB - unable to scope due to respiratory status - protonix bid - hgb stable # Generalized weakness due to acute illness - PT/OT - agreeable to placement - remove enriquez at discharge # Altered mental status r/o absence seizure - neuro consult reviewed - oral keppra 500 mg bid - EEG shows no seizure activity - MRI brain is normal - no further episodes of altered mental status since starting keppra, will continue - continue sitter # Acute metabolic encephalopathy due to GI bleed - resolved # Acute on chronic hypoxic and hypercarbic respiratory failure # Mucous plugging # COPD with moderate to severe pulmonary hypertension # Severe TR (not operative candidate) - improved - continue sitter - wean oxygen as tolerated # Severe protein calorie malnutrition - continue with diet # Acute Peritonitis secondary to bowel perforation - Culture + for Citrobacter and E.coli in the peritoneal fluid - s/p IV Zosyn, completed 10 days. # PAF with RVR - rate controlled - not candidate for anticoagulation due to GIB Dispo: - SNF when bed available VS,Fishbone, I+O VS, Fishbone, I+O Laboratory Tests 05/04/19 08:34 Vital Signs Date Time Temp Pulse Resp B/P (MAP) Pulse Ox O2 Delivery O2 Flow Rate FiO2 05/04/19 08:00 3.0 05/04/19 07:51 95 Nasal Cannula 05/04/19 04:00 97.1 60 16 107/56 (73) 05/02/19 16:00 28 I&O- Last 24 Hours up to 6 AM 05/04/19 06:00 Intake Total 960 ml Output Total 1375 ml Balance -415 ml EBONIE SWEENEY MD May 04, 2019 11:37
[2019-05-04] MEDS: ATORVASTATIN 20 MG TAB PO SCH (20:23)
[2019-05-04] MEDS: TAMSULOSIN 0.4 MG CAP PO SCH (20:23)
[2019-05-04] MEDS: OLANZapine 5 MG TAB PO SCH (20:24)
[2019-05-05] VITALS (22 sets, daily range): BP systolic 114–146; BP diastolic 57–70; O2SAT 86–100
[2019-05-05 00:46] LABS: HEMATOCRIT 29.4 % (42.0-52.0); HEMOGLOBIN 8.9 g/dl (13.5-17.5)
[2019-05-05] MEDS: SODIUM CHLORIDE HYPERTONIC 3% 15ML NEB SOL INH SCH ×4 (02:02→19:42)
[2019-05-05] MEDS: LEVALBUTEROL 1.25 MG/0.5 ML CONCENTRATE NEB INH SCH ×5 (02:02→19:42)
[2019-05-05] MEDS: SODIUM CHLORIDE 0.9% INJ 10 ML SYR IV SCH ×2 (04:40→18:12)
[2019-05-05 04:56] LABS: HEMATOCRIT 30.3 % (42.0-52.0); MEAN CORPUSCULAR HEMOGLOBIN 28.8 pg (27.0-33.0); MEAN CORPUSCULAR HGB CONC 29.7 g/dl (32.0-36.5); MEAN CORPUSCULAR VOLUME 96.8 fl (80.0-96.0); PLATELET COUNT, AUTOMATED 305 10^3/uL (150-450); RED BLOOD COUNT 3.13 10^6/uL (4.30-6.10); WHITE BLOOD COUNT 8.5 10^3/uL (4.0-10.0)
[2019-05-05 05:19] LABS: BLOOD UREA NITROGEN 20 MG/DL (7-18); CALCIUM LEVEL 7.9 MG/DL (8.8-10.2); CARBON DIOXIDE LEVEL 41 MEQ/L (21-32); CHLORIDE LEVEL 101 MEQ/L (98-107); CREATININE FOR GFR 0.53 MG/DL (0.70-1.30); GLOMERULAR FILTRATION RATE > 60.0 (>42); GLUCOSE, FASTING 110 MG/DL (70-100); SODIUM LEVEL 143 MEQ/L (136-145)
[2019-05-05] MEDS: SENOKOT S TAB PO SCH ×2 (09:00→20:32)
[2019-05-05] MEDS: MULTIVITAMINS/MINERALS THERAP 1 TAB PO SCH (09:30)
[2019-05-05] MEDS: MAGNESIUM OXIDE 400 MG TAB (MAG-OX) PO SCH ×2 (09:30→20:32)
[2019-05-05] MEDS: SERTRALINE HCL 50 MG TAB PO SCH (09:30)
[2019-05-05] MEDS: SUCRALFATE 1 GM TAB PO SCH ×4 (09:30→20:32)
[2019-05-05] MEDS: levETIRAcetam 250MG TABLET (KEPPRA) PO SCH ×2 (09:30→20:32)
[2019-05-05] MEDS: FOLIC ACID 1 MG TAB PO SCH (09:31)
[2019-05-05] MEDS: NICOTINE 14 MG/24 HR TRANSDERMAL TD SCH (09:31)
[2019-05-05] MEDS: PANTOPRAZOLE 40MG INJ (PROTONIX) (C9113) IV SCH ×2 (09:31→20:31)
--- NOTE | 2019-05-05 10:19 | IPNPDOC ---
Text Note Date of Service The patient was seen on 05/05/19. NOTE S: Patient seen and examined at bedside. No new medical complaints. Some blood in bowel movement reported. Patient has no new medical complaints. O: General Exam: NAD, lying comfortably in bed, chronically ill appearing HEENT: NC/AT Lungs: CTA B/L Heart: +S1S2, RRR Abd: soft, NT, +BS Ext: no edema A/P: # Acute blood loss anemia due to GIB - monitor BM for further bleeding - unable to scope due to respiratory status - protonix bid - hgb stable # Generalized weakness due to acute illness - PT/OT - agreeable to placement - remove enriquez at discharge # Altered mental status r/o absence seizure - neuro consult reviewed - oral keppra 500 mg bid - EEG shows no seizure activity - MRI brain is normal - no further episodes of altered mental status since starting keppra, will continue - continue sitter # Acute metabolic encephalopathy due to GI bleed - resolved # Acute on chronic hypoxic and hypercarbic respiratory failure # Mucous plugging # COPD with moderate to severe pulmonary hypertension # Severe TR (not operative candidate) - improved - continue sitter - wean oxygen as tolerated # Severe protein calorie malnutrition - continue with diet # Acute Peritonitis secondary to bowel perforation - Culture + for Citrobacter and E.coli in the peritoneal fluid - s/p IV Zosyn, completed 10 days. # PAF with RVR - rate controlled - not candidate for anticoagulation due to GIB Dispo: - SNF when bed available VS,Fishbone, I+O VS, Fishbone, I+O Laboratory Tests 05/05/19 00:30 05/05/19 04:40 Vital Signs Date Time Temp Pulse Resp B/P (MAP) Pulse Ox O2 Delivery O2 Flow Rate FiO2 05/05/19 09:00 88 Nasal Cannula 4.0 05/05/19 08:00 97.4 19 18 114/57 (76) 05/02/19 16:00 28 I&O- Last 24 Hours up to 6 AM 05/05/19 06:00 Intake Total 600 ml Output Total 1200 ml Balance -600 ml EBONIE SWEENEY MD May 05, 2019 10:19
[2019-05-05] MEDS: TAMSULOSIN 0.4 MG CAP PO SCH (20:32)
[2019-05-05] MEDS: OLANZapine 5 MG TAB PO SCH (20:32)
[2019-05-05] MEDS: ATORVASTATIN 20 MG TAB PO SCH (20:32)
[2019-05-06] VITALS (24 sets, daily range): BP systolic 127–159; BP diastolic 62–77; O2SAT 84–100
[2019-05-06] MEDS: LEVALBUTEROL 1.25 MG/0.5 ML CONCENTRATE NEB INH SCH ×7 (01:42→23:44)
[2019-05-06] MEDS: SODIUM CHLORIDE HYPERTONIC 3% 15ML NEB SOL INH SCH ×5 (01:42→23:44)
[2019-05-06] MEDS: SODIUM CHLORIDE 0.9% INJ 10 ML SYR IV SCH ×2 (04:36→17:55)
[2019-05-06 05:06] LABS: HEMATOCRIT 29.3 % (42.0-52.0); HEMOGLOBIN 8.9 g/dl (13.5-17.5); MEAN CORPUSCULAR HGB CONC 30.4 g/dl (32.0-36.5); MEAN CORPUSCULAR VOLUME 95.4 fl (80.0-96.0); PLATELET COUNT, AUTOMATED 318 10^3/uL (150-450); RED BLOOD COUNT 3.07 10^6/uL (4.30-6.10); WHITE BLOOD COUNT 9.5 10^3/uL (4.0-10.0)
[2019-05-06 05:31] LABS: BLOOD UREA NITROGEN 19 MG/DL (7-18); CARBON DIOXIDE LEVEL 43 MEQ/L (21-32); CHLORIDE LEVEL 102 MEQ/L (98-107); CREATININE FOR GFR 0.43 MG/DL (0.70-1.30); GLOMERULAR FILTRATION RATE > 60.0 (>42); GLUCOSE, FASTING 75 MG/DL (70-100); POTASSIUM SERUM 3.8 MEQ/L (3.5-5.1); SODIUM LEVEL 142 MEQ/L (136-145)
--- NOTE | 2019-05-06 07:43 | IPNPDOC ---
Text Note Date of Service The patient was seen on 05/06/19. NOTE S: Patient seen and examined at bedside. No new medical complaints. Reported to be agitated overnight, sitter in place. Patient has no new medical complaints. O: General Exam: NAD, lying comfortably in bed, eating breakfast, chronically ill appearing HEENT: NC/AT, edentulous Lungs: CTA B/L Heart: +S1S2, RRR Abd: soft, NT, +BS Ext: no edema A/P: # Acute blood loss anemia due to GIB - unable to scope due to respiratory status - protonix bid - hgb stable # Generalized weakness due to acute illness - PT/OT - agreeable to placement - remove enriquez at discharge # Altered mental status r/o absence seizure - neuro consult reviewed - oral keppra 500 mg bid - EEG shows no seizure activity - MRI brain is normal - no further episodes of altered mental status since starting keppra, will continue - continue sitter # Acute metabolic encephalopathy due to GI bleed - resolved # Acute on chronic hypoxic and hypercarbic respiratory failure # Mucous plugging # COPD with moderate to severe pulmonary hypertension # Severe TR (not operative candidate) - improved - continue sitter - wean oxygen as tolerated # Severe protein calorie malnutrition - continue with diet # Acute Peritonitis secondary to bowel perforation - Culture + for Citrobacter and E.coli in the peritoneal fluid - s/p IV Zosyn, completed 10 days. # PAF with RVR - rate controlled - not candidate for anticoagulation due to GIB Dispo: - SNF when bed available, transfer to floor VS,Shune, I+O VS, Fishbone, I+O Laboratory Tests 05/06/19 04:29 05/06/19 04:42 Vital Signs Date Time Temp Pulse Resp B/P (MAP) Pulse Ox O2 Delivery O2 Flow Rate FiO2 05/06/19 06:10 92 Nasal Cannula 10.0 05/06/19 04:00 97.8 90 16 127/77 (94) 05/02/19 16:00 28 I&O- Last 24 Hours up to 6 AM 05/06/19 06:00 Intake Total 180 ml Output Total 1200 ml Balance -1020 ml EBONIE SWEENEY MD May 06, 2019 07:43
[2019-05-06] MEDS: SERTRALINE HCL 50 MG TAB PO SCH (08:33)
[2019-05-06] MEDS: PANTOPRAZOLE 40MG INJ (PROTONIX) (C9113) IV SCH ×2 (08:33→20:52)
[2019-05-06] MEDS: SENOKOT S TAB PO SCH ×2 (08:33→20:52)
[2019-05-06] MEDS: MULTIVITAMINS/MINERALS THERAP 1 TAB PO SCH (08:33)
[2019-05-06] MEDS: MAGNESIUM OXIDE 400 MG TAB (MAG-OX) PO SCH ×2 (08:34→20:52)
[2019-05-06] MEDS: FOLIC ACID 1 MG TAB PO SCH (08:34)
[2019-05-06] MEDS: levETIRAcetam 250MG TABLET (KEPPRA) PO SCH ×2 (08:34→20:52)
[2019-05-06] MEDS: SUCRALFATE 1 GM TAB PO SCH ×4 (08:34→20:52)
[2019-05-06] MEDS: NICOTINE 14 MG/24 HR TRANSDERMAL TD SCH (08:35)
--- NOTE | 2019-05-06 12:42 | REP ---
Clinical: Shortness of breath. Comparison: 04/24/2019. Findings: Examination is limited by portable technique and rotation. There is evidence for left-sided consolidations/elements of pulmonary collapse and left pleural effusion along with associated ipsilateral volume loss. The right hemithorax demonstrates diffuse chronic-appearing interstitial changes and possible right basilar atelectasis and small right pleural reaction. The mediastinum and cardiac silhouette are poorly evaluated due to rotation and overlying opacities. Skeletal structures demonstrate stable age related osteopenia and degenerative changes. Impression: Limited examination demonstrating left-sided volume loss with underlying elements of consolidation/partial collapse, and pleural effusion. Electronically Signed by Dayton Mcgowan MD 05/06/2019 12:34 P
[2019-05-06] MEDS: LEVALBUTEROL 1.25 MG/0.5 ML CONCENTRATE NEB INH PRN (14:40)
[2019-05-06] MEDS: TAMSULOSIN 0.4 MG CAP PO SCH (20:52)
[2019-05-06] MEDS: ATORVASTATIN 20 MG TAB PO SCH (20:52)
[2019-05-06] MEDS: OLANZapine 5 MG TAB PO SCH (20:52)
[2019-05-07] VITALS (18 sets, daily range): BP systolic 114–150; BP diastolic 57–74; O2SAT 81–99
[2019-05-07] MEDS: LEVALBUTEROL 1.25 MG/0.5 ML CONCENTRATE NEB INH SCH ×5 (04:02→22:32)
[2019-05-07] MEDS: SODIUM CHLORIDE 0.9% INJ 10 ML SYR IV SCH ×2 (04:34→18:23)
[2019-05-07 04:52] LABS: HEMATOCRIT 27.2 % (42.0-52.0); HEMOGLOBIN 8.3 g/dl (13.5-17.5); MEAN CORPUSCULAR HEMOGLOBIN 28.7 pg (27.0-33.0); MEAN CORPUSCULAR HGB CONC 30.5 g/dl (32.0-36.5); MEAN CORPUSCULAR VOLUME 94.1 fl (80.0-96.0); PLATELET COUNT, AUTOMATED 306 10^3/uL (150-450); RED BLOOD COUNT 2.89 10^6/uL (4.30-6.10); WHITE BLOOD COUNT 10.7 10^3/uL (4.0-10.0)
[2019-05-07 05:00] LABS: BLOOD UREA NITROGEN 19 MG/DL (7-18); CALCIUM LEVEL 7.8 MG/DL (8.8-10.2); CARBON DIOXIDE LEVEL 43 MEQ/L (21-32); CHLORIDE LEVEL 103 MEQ/L (98-107); CREATININE FOR GFR 0.44 MG/DL (0.70-1.30); GLOMERULAR FILTRATION RATE > 60.0 (>42); GLUCOSE, FASTING 75 MG/DL (70-100); SODIUM LEVEL 144 MEQ/L (136-145)
[2019-05-07] MEDS: SODIUM CHLORIDE HYPERTONIC 3% 15ML NEB SOL INH SCH ×3 (07:36→22:32)
[2019-05-07] MEDS: PANTOPRAZOLE 40MG INJ (PROTONIX) (C9113) IV SCH ×2 (08:12→21:49)
[2019-05-07] MEDS: MAGNESIUM OXIDE 400 MG TAB (MAG-OX) PO SCH ×2 (08:12→21:50)
[2019-05-07] MEDS: SENOKOT S TAB PO SCH ×2 (08:12→21:00)
[2019-05-07] MEDS: levETIRAcetam 250MG TABLET (KEPPRA) PO SCH ×2 (08:13→21:50)
[2019-05-07] MEDS: NICOTINE 14 MG/24 HR TRANSDERMAL TD SCH (08:13)
[2019-05-07] MEDS: FOLIC ACID 1 MG TAB PO SCH (08:13)
[2019-05-07] MEDS: SERTRALINE HCL 50 MG TAB PO SCH (08:13)
[2019-05-07] MEDS: SUCRALFATE 1 GM TAB PO SCH ×4 (08:13→21:50)
[2019-05-07] MEDS: MULTIVITAMINS/MINERALS THERAP 1 TAB PO SCH (08:13)
[2019-05-07] MEDS: OLANZapine 5 MG TAB PO SCH (21:50)
[2019-05-07] MEDS: ATORVASTATIN 20 MG TAB PO SCH (21:50)
[2019-05-07] MEDS: TAMSULOSIN 0.4 MG CAP PO SCH (21:50)
[2019-05-08] MEDS: SODIUM CHLORIDE HYPERTONIC 3% 15ML NEB SOL INH SCH ×4 (00:12→20:06)
[2019-05-08] MEDS: LEVALBUTEROL 1.25 MG/0.5 ML CONCENTRATE NEB INH SCH ×5 (00:12→20:06)
--- NOTE | 2019-05-08 05:35 | IPNPDOC ---
Text Note Date of Service The patient was seen on 05/08/19. NOTE Minor Progress Note: RN notified me that patient was desaturating on high flow and switched to 31% venti mask. I evaluated patient at bedside. Pt reports feeling short of breath but was still feeling ok. He had no other complaints noted at time of interview . On exam, pt noted to have crackles more present on R lower lobe compared to L. CXR ordered as well as chest PT. Pt has had this occur multiple times through the admission as per respiratory therapist due to mucous plugging. - will follow up CXR - chest PT q6hrs for now - supplemental O2 to maintain sat >88% and wean down as tolerated. VS,Fishbone, I+O VS, Fishbone, I+O Vital Signs Date Time Temp Pulse Resp B/P (MAP) Pulse Ox O2 Delivery O2 Flow Rate FiO2 05/07/19 22:00 97.9 80 26 147/74 (98) 90 High Flow Cannula 6.0 05/02/19 16:00 28 I&O- Last 24 Hours up to 6 AM 05/08/19 06:00 Intake Total 740 ml Output Total 500 ml Balance 240 ml JOYCE ABERNATHY MD May 08, 2019 05:35
[2019-05-08] MEDS: SODIUM CHLORIDE 0.9% INJ 10 ML SYR IV SCH ×2 (05:39→17:47)
--- NOTE | 2019-05-08 06:03 | REPVR ---
PROCEDURE INFORMATION: Exam: XR Chest, 1 View Exam date and time: 05/08/2019 5:53 AM Age: 74 years old Clinical indication: Shortness of breath and tachypnea; Additional info: Shortness of breath, tachypnea, desat TECHNIQUE: Imaging protocol: XR of the chest Views: 1 view. COMPARISON: [facility] PORTABLE CHEST X-RAY 05/06/2019 12:21 PM FINDINGS: Tubes, catheters and devices: Right arm PICC line seen with its tip in the distal subclavian vein likely proximal to the junction with the right IJV. Lungs: There is improved aeration of the left lung field as compared to the prior exam with resolution of mediastinal shift to the left. There is retrocardiac atelectasis versus infiltrates. There is right infrahilar/basilar atelectasis and or infiltrates. There is diffuse bilateral increased interstitial markings likely due to chronic emphysema and or interstitial lung process. Pleural space: Unremarkable. No pleural effusion. No pneumothorax. Heart/Mediastinum: Unremarkable. No cardiomegaly. Vasculature: There is aortic knob calcifications. Bones/joints: Unremarkable. IMPRESSION: 1. As compared to May 06, 2019, there is interval improved aeration of the left lung field with resolution of the mediastinal shift to the left. Now noted is right infrahilar infiltrate and retrocardiac atelectasis vs infiltrates. Trace underlying effusions cannot be excluded. 2. Right arm PICC line seen with its tip in the distal subclavian vein likely at or just proximal to the junction with the IJV. Electronically signed by: Cesario Valverde On 05/08/2019 06:02:53 AM
[2019-05-08 06:25] LABS: HEMATOCRIT 29.5 % (42.0-52.0); MEAN CORPUSCULAR HEMOGLOBIN 28.6 pg (27.0-33.0); MEAN CORPUSCULAR HGB CONC 30.5 g/dl (32.0-36.5); MEAN CORPUSCULAR VOLUME 93.7 fl (80.0-96.0); PLATELET COUNT, AUTOMATED 339 10^3/uL (150-450); RED BLOOD COUNT 3.15 10^6/uL (4.30-6.10); WHITE BLOOD COUNT 11.1 10^3/uL (4.0-10.0)
[2019-05-08 06:26] VITALS: O2SAT 94
[2019-05-08 06:44] LABS: BLOOD UREA NITROGEN 21 MG/DL (7-18); CALCIUM LEVEL 8.4 MG/DL (8.8-10.2); CARBON DIOXIDE LEVEL 41 MEQ/L (21-32); CHLORIDE LEVEL 101 MEQ/L (98-107); CREATININE FOR GFR 0.47 MG/DL (0.70-1.30); GLOMERULAR FILTRATION RATE > 60.0 (>42); GLUCOSE, FASTING 72 MG/DL (70-100); POTASSIUM SERUM 4.1 MEQ/L (3.5-5.1); SODIUM LEVEL 142 MEQ/L (136-145)
[2019-05-08 09:15] VITALS: O2SAT 96
--- NOTE | 2019-05-08 09:32 | IPNPDOC ---
Text Note Date of Service The patient was seen on 05/08/19. NOTE S: Patient seen and examined at bedside. No new medical complaints. Overnight he had some worsening shortness of breath, requiring increased supplemental oxygen. This appears to have resolved. O: General Exam: NAD, lying comfortably in bed, chronically ill appearing HEENT: NC/AT, edentulous Lungs: CTA B/L Heart: +S1S2, RRR Abd: soft, NT, +BS Ext: no edema A/P: #chronic hypoxic respiratory failure - CXR reviewed - improved aeration on left, possible infiltrate/effusion on right - patient has completed 10 days of zosyn already - procalcitonin pending, WBC is slowly increasing - hold off on antibiotics for now - continual issues with mucous plugging - further complicated with COPD with moderate to severe pulmonary hypertension # Acute blood loss anemia due to GIB - unable to scope due to respiratory status - protonix bid - hgb stable # Generalized weakness due to acute illness - PT/OT - agreeable to placement - remove enriquez at discharge # Altered mental status r/o absence seizure - neuro consult reviewed - oral keppra 500 mg bid - EEG shows no seizure activity - MRI brain is normal - no further episodes of altered mental status since starting keppra, will continue - continue sitter Acute metabolic encephalopathy due to GI bleed - resolved # Severe TR (not operative candidate) - improved - continue sitter - wean oxygen as tolerated # Severe protein calorie malnutrition - continue with diet # Acute Peritonitis secondary to bowel perforation - Culture + for Citrobacter and E.coli in the peritoneal fluid - s/p IV Zosyn, completed 10 days. # PAF with RVR - rate controlled - not candidate for anticoagulation due to GIB Dispo: - SNF when bed available, transfer to floor VS,Fishbone, I+O VS, Fishbone, I+O Laboratory Tests 05/08/19 05:31 Vital Signs Date Time Temp Pulse Resp B/P (MAP) Pulse Ox O2 Delivery O2 Flow Rate FiO2 05/08/19 06:26 94 Venturi Mask 40 05/08/19 05:10 10.0 05/07/19 22:00 97.9 80 26 147/74 (98) I&O- Last 24 Hours up to 6 AM 05/08/19 05:59 Intake Total 860 ml Output Total 1000 ml Balance -140 ml EBONIE SWEENEY MD May 08, 2019 09:32
[2019-05-08] MEDS: PANTOPRAZOLE 40MG INJ (PROTONIX) (C9113) IV SCH ×2 (09:35→21:54)
[2019-05-08] MEDS: SERTRALINE HCL 50 MG TAB PO SCH (09:36)
[2019-05-08] MEDS: NICOTINE 14 MG/24 HR TRANSDERMAL TD SCH (09:36)
[2019-05-08] MEDS: MAGNESIUM OXIDE 400 MG TAB (MAG-OX) PO SCH ×2 (09:36→21:55)
[2019-05-08] MEDS: levETIRAcetam 250MG TABLET (KEPPRA) PO SCH ×2 (09:36→21:54)
[2019-05-08] MEDS: SUCRALFATE 1 GM TAB PO SCH ×4 (09:36→21:55)
[2019-05-08] MEDS: MULTIVITAMINS/MINERALS THERAP 1 TAB PO SCH (09:36)
[2019-05-08] MEDS: FOLIC ACID 1 MG TAB PO SCH (09:37)
[2019-05-08] MEDS: SENOKOT S TAB PO SCH ×2 (09:37→21:55)
[2019-05-08 14:00] VITALS: BP 123/66
[2019-05-08] MEDS: ATORVASTATIN 20 MG TAB PO SCH (21:55)
[2019-05-08] MEDS: TAMSULOSIN 0.4 MG CAP PO SCH (21:55)
[2019-05-08] MEDS: OLANZapine 5 MG TAB PO SCH (21:55)
[2019-05-08 22:00] VITALS: BP 132/68
[2019-05-09] MEDS: LEVALBUTEROL 1.25 MG/0.5 ML CONCENTRATE NEB INH SCH ×6 (02:03→20:24)
[2019-05-09] MEDS: SODIUM CHLORIDE HYPERTONIC 3% 15ML NEB SOL INH SCH ×4 (02:03→20:24)
[2019-05-09 05:52] LABS: HEMATOCRIT 26.8 % (42.0-52.0); HEMOGLOBIN 8.1 g/dl (13.5-17.5); MEAN CORPUSCULAR HEMOGLOBIN 28.7 pg (27.0-33.0); MEAN CORPUSCULAR HGB CONC 30.2 g/dl (32.0-36.5); PLATELET COUNT, AUTOMATED 291 10^3/uL (150-450); RED BLOOD COUNT 2.82 10^6/uL (4.30-6.10); WHITE BLOOD COUNT 9.3 10^3/uL (4.0-10.0)
[2019-05-09 06:00] VITALS: BP 128/68
[2019-05-09] MEDS: SODIUM CHLORIDE 0.9% INJ 10 ML SYR IV SCH (06:05)
[2019-05-09 06:17] LABS: BLOOD UREA NITROGEN 21 MG/DL (7-18); CALCIUM LEVEL 7.9 MG/DL (8.8-10.2); CARBON DIOXIDE LEVEL 43 MEQ/L (21-32); CHLORIDE LEVEL 104 MEQ/L (98-107); GLOMERULAR FILTRATION RATE > 60.0 (>42); GLUCOSE, FASTING 76 MG/DL (70-100); POTASSIUM SERUM 3.8 MEQ/L (3.5-5.1); SODIUM LEVEL 146 MEQ/L (136-145)
[2019-05-09] MEDS: SUCRALFATE 1 GM TAB PO SCH ×4 (09:54→21:52)
[2019-05-09] MEDS: SERTRALINE HCL 50 MG TAB PO SCH (09:54)
[2019-05-09] MEDS: SENOKOT S TAB PO SCH ×2 (09:54→21:52)
[2019-05-09] MEDS: levETIRAcetam 250MG TABLET (KEPPRA) PO SCH ×2 (09:55→21:53)
[2019-05-09] MEDS: MULTIVITAMINS/MINERALS THERAP 1 TAB PO SCH (09:55)
[2019-05-09] MEDS: MAGNESIUM OXIDE 400 MG TAB (MAG-OX) PO SCH ×2 (09:55→21:52)
[2019-05-09] MEDS: NICOTINE 14 MG/24 HR TRANSDERMAL TD SCH (09:55)
[2019-05-09] MEDS: FOLIC ACID 1 MG TAB PO SCH (09:55)
[2019-05-09] MEDS: PANTOPRAZOLE 40MG INJ (PROTONIX) (C9113) IV SCH (09:56)
[2019-05-09 14:00] VITALS: BP 125/61
[2019-05-09 15:46] VITALS: O2SAT 99
[2019-05-09] MEDS: ATORVASTATIN 20 MG TAB PO SCH (21:52)
[2019-05-09] MEDS: PANTOPRAZOLE 40MG TAB (PROTONIX) PO SCH (21:52)
[2019-05-09] MEDS: TAMSULOSIN 0.4 MG CAP PO SCH (21:53)
[2019-05-09] MEDS: OLANZapine 5 MG TAB PO SCH (21:54)
[2019-05-09 22:00] VITALS: BP 128/68
[2019-05-10] VITALS (9 sets, daily range): BP systolic 128–144; BP diastolic 68–81; O2SAT 84–100
[2019-05-10] MEDS: LEVALBUTEROL 1.25 MG/0.5 ML CONCENTRATE NEB INH SCH ×6 (01:42→20:35)
[2019-05-10] MEDS: SODIUM CHLORIDE HYPERTONIC 3% 15ML NEB SOL INH SCH ×4 (01:43→20:35)
[2019-05-10] MEDS: FOLIC ACID 1 MG TAB PO SCH (08:00)
[2019-05-10] MEDS: SERTRALINE HCL 50 MG TAB PO SCH (08:00)
[2019-05-10] MEDS: MULTIVITAMINS/MINERALS THERAP 1 TAB PO SCH (08:00)
[2019-05-10] MEDS: MAGNESIUM OXIDE 400 MG TAB (MAG-OX) PO SCH ×2 (08:00→20:15)
[2019-05-10] MEDS: levETIRAcetam 250MG TABLET (KEPPRA) PO SCH ×2 (08:00→20:15)
[2019-05-10] MEDS: SENOKOT S TAB PO SCH ×2 (08:00→20:05)
[2019-05-10] MEDS: SUCRALFATE 1 GM TAB PO SCH ×4 (08:00→20:15)
[2019-05-10] MEDS: PANTOPRAZOLE 40MG TAB (PROTONIX) PO SCH ×2 (08:00→20:15)
[2019-05-10] MEDS: NICOTINE 14 MG/24 HR TRANSDERMAL TD SCH (08:01)
--- NOTE | 2019-05-10 16:01 | IPNPDOC ---
Subjective Date Seen The patient was seen on 05/10/19. Subjective Chief Complaint/HPI Camacho is well this am, no reports of dropping his oxygen levels overnight. He has no complaints. Objective Physical Examination General Exam: Positive: Alert, Cooperative, No Acute Distress Eye Exam: Positive: PERRLA, EOMI; Negative: Sclera icteric ENT Exam: Positive: Atraumatic, Pharynx Normal Neck Exam: Negative: JVD, thyromegaly Chest Exam: Positive: Clear to auscultation, Other (non-labored) Heart Exam: Positive: Rate Normal, Normal S1, Normal S2 Abdomen Exam: Positive: Soft; Negative: Normal bowel sounds, Tenderness Extremity Exam: Negative: Clubbing, Cyanosis, Edema Skin Exam: Negative: Rash Neuro Exam: Positive: Normal Speech Psych Exam: Positive: Mental status NL; Negative: Anxiety Assessment /Plan Assessment # Acute blood loss anemia due to GIB - unable to scope due to respiratory status - protonix bid, may change to oral # Generalized weakness due to acute illness - PT/OT - agreeable to placement # Urinary retention - remove enriquez at discharge # Altered mental status r/o absence seizure - neuro consult reviewed - oral keppra 500 mg bid - EEG shows no seizure activity - MRI brain is normal - no further episodes of altered mental status since starting keppra, will continue # Acute metabolic encephalopathy due to GI bleed - resolved # Acute on chronic hypoxic and hypercarbic respiratory failure # Mucous plugging # COPD with moderate to severe pulmonary hypertension # Severe TR (not operative candidate) - improved - continue sitter - wean oxygen as tolerated # Severe protein calorie malnutrition - stopped TPN - continue with diet . # Acute Peritonitis secondary to bowel perforation - Culture + for Citrobacter and E.coli in the peritoneal fluid - s/p IV Zosyn x 10/10 days. # PAF with RVR - rate controlled - not candidate for anticoagulation due to GIB Dispo: - SNF when bed available Plan/VTE VTE Prophylaxis Ordered?: Yes VTE Exclusion Mechanical Proph: N/A:VTE Prophy Ordered VTE Exclusion Pharmacological: Thrombocytopenia VS, I&O, 24H, Fishbone Vital Signs/I&O Vital Signs Date Time Temp Pulse Resp B/P (MAP) Pulse Ox O2 Delivery O2 Flow Rate FiO2 05/10/19 14:00 98.3 81 17 130/70 (90) 87 Venturi Mask 8.0 31 I&O- Last 24 Hours up to 6 AM 05/10/19 06:00 Intake Total 1651 ml Output Total 1650 ml Balance 1 ml SHIMA ANDRADE MD May 10, 2019 16:01
[2019-05-10] MEDS: ATORVASTATIN 20 MG TAB PO SCH (20:15)
[2019-05-10] MEDS: OLANZapine 5 MG TAB PO SCH (20:15)
[2019-05-10] MEDS: TAMSULOSIN 0.4 MG CAP PO SCH (20:15)
[2019-05-11] MEDS: LEVALBUTEROL 1.25 MG/0.5 ML CONCENTRATE NEB INH SCH ×6 (01:15→20:36)
[2019-05-11] MEDS: SODIUM CHLORIDE HYPERTONIC 3% 15ML NEB SOL INH SCH ×4 (01:15→20:36)
[2019-05-11 01:16] VITALS: O2SAT 91
[2019-05-11 04:28] VITALS: O2SAT 93
[2019-05-11 06:20] LABS: BASO % 0.2 % (0.0-1.0); EOS % 0.4 % (0.0-3.0); HEMATOCRIT 26.1 % (42.0-52.0); HEMOGLOBIN 7.9 g/dl (13.5-17.5); LYMPH # 0.7 10^3/uL (1.5-5.0); LYMPH % 8.7 % (24.0-44.0); MEAN CORPUSCULAR HEMOGLOBIN 28.6 pg (27.0-33.0); MEAN CORPUSCULAR HGB CONC 30.3 g/dl (32.0-36.5); MEAN CORPUSCULAR VOLUME 94.6 fl (80.0-96.0); MONO # 0.4 10^3/uL (0.0-0.8); MONO % 5.2 % (0.0-5.0); NEUTROPHILS % 85.1 % (36.0-66.0); PLATELET COUNT, AUTOMATED 259 10^3/uL (150-450); RED BLOOD COUNT 2.76 10^6/uL (4.30-6.10); WHITE BLOOD COUNT 8.3 10^3/uL (4.0-10.0)
[2019-05-11 06:39] LABS: BLOOD UREA NITROGEN 19 MG/DL (7-18); CALCIUM LEVEL 8.4 MG/DL (8.8-10.2); CARBON DIOXIDE LEVEL 41 MEQ/L (21-32); CHLORIDE LEVEL 102 MEQ/L (98-107); CREATININE FOR GFR 0.42 MG/DL (0.70-1.30); GLOMERULAR FILTRATION RATE > 60.0 (>42); GLUCOSE, FASTING 74 MG/DL (70-100); POTASSIUM SERUM 3.6 MEQ/L (3.5-5.1); SODIUM LEVEL 144 MEQ/L (136-145)
[2019-05-11] MEDS: SUCRALFATE 1 GM TAB PO SCH ×4 (07:46→21:37)
[2019-05-11 08:50] LABS: FERRITIN 171 NG/ML (26-388); IRON (FE) 34 UG/DL (65-175); PERCENT SATURATION 15.8 % (19.7-50.0); TOTAL IRON BINDING CAPACITY 215 UG/DL (250-450)
[2019-05-11 08:56] LABS: FOLATE > 24.0 NG/ML (>5.4); VITAMIN B12 LEVEL 1272 PG/ML (247-911)
[2019-05-11] MEDS: NICOTINE 14 MG/24 HR TRANSDERMAL TD SCH (08:58)
[2019-05-11] MEDS: SERTRALINE HCL 50 MG TAB PO SCH (08:59)
[2019-05-11] MEDS: MULTIVITAMINS/MINERALS THERAP 1 TAB PO SCH (08:59)
[2019-05-11] MEDS: PANTOPRAZOLE 40MG TAB (PROTONIX) PO SCH ×2 (08:59→21:37)
[2019-05-11] MEDS: MAGNESIUM OXIDE 400 MG TAB (MAG-OX) PO SCH ×2 (08:59→21:37)
[2019-05-11] MEDS: FOLIC ACID 1 MG TAB PO SCH (08:59)
[2019-05-11] MEDS: FERROUS SULFATE 325MG TAB PO SCH (08:59)
[2019-05-11] MEDS: levETIRAcetam 250MG TABLET (KEPPRA) PO SCH ×2 (09:00→21:37)
[2019-05-11] MEDS: SENOKOT S TAB PO SCH ×2 (09:00→21:37)
--- NOTE | 2019-05-11 10:18 | REP ---
CHEST, TWO VIEWS: Two views of the chest are performed. Comparison is made with a prior study of 05/08/2019. There is shift of the heart and mediastinal structures to the left, which is new with scattered consolidative opacity mainly in the left lower lobe representing atelectasis and possible underlying infiltrate. There is blunting of the costophrenic angles suspicious for small effusions. No infiltrate is seen on the right. There is calcification of the thoracic aorta. There are mild degenerative changes of the spine. Electronically Signed by Nader Robertson MD 05/11/2019 04:50 P
--- NOTE | 2019-05-11 12:31 | IPNPDOC ---
Subjective Date Seen The patient was seen on 05/11/19. Subjective Chief Complaint/HPI Camacho is doing well, no issues with impulsive behavior since discontinuing bedside sitter 24 hours ago Objective Physical Examination General Exam: Positive: Alert, Cooperative, No Acute Distress Eye Exam: Positive: PERRLA, EOMI; Negative: Sclera icteric ENT Exam: Positive: Atraumatic, Pharynx Normal Neck Exam: Negative: JVD, thyromegaly Chest Exam: Positive: Clear to auscultation, Other (non-labored) Heart Exam: Positive: Rate Normal, Normal S1, Normal S2 Abdomen Exam: Positive: Soft; Negative: Normal bowel sounds, Tenderness Extremity Exam: Negative: Clubbing, Cyanosis, Edema Skin Exam: Negative: Rash Neuro Exam: Positive: Normal Speech Psych Exam: Positive: Mental status NL; Negative: Anxiety Assessment /Plan Assessment # Acute blood loss anemia due to GIB - iron tabs - check iron panel - unable to scope due to respiratory status - protonix bid, may change to oral # Generalized weakness due to acute illness - PT/OT - agreeable to placement # Urinary retention - remove enriquez at discharge # Altered mental status r/o absence seizure - neuro consult reviewed - oral keppra 500 mg bid - EEG shows no seizure activity - MRI brain is normal - no further episodes of altered mental status since starting keppra, will continue # Acute metabolic encephalopathy due to GI bleed - resolved # Acute on chronic hypoxic and hypercarbic respiratory failure # Mucous plugging # COPD with moderate to severe pulmonary hypertension # Severe TR (not operative candidate) - improved - wean oxygen as tolerated - CXR 05/10 shows LLL atelectasis, continue CPT # Severe protein calorie malnutrition - stopped TPN - continue with diet . # Acute Peritonitis secondary to bowel perforation - Culture + for Citrobacter and E.coli in the peritoneal fluid - s/p IV Zosyn x 10/10 days. # PAF with RVR - rate controlled - not candidate for anticoagulation due to GIB Dispo: - SNF when bed available Plan/VTE VTE Prophylaxis Ordered?: Yes VTE Exclusion Mechanical Proph: N/A:VTE Prophy Ordered VTE Exclusion Pharmacological: Thrombocytopenia VS, I&O, 24H, Fishbone Vital Signs/I&O Vital Signs Date Time Temp Pulse Resp B/P (MAP) Pulse Ox O2 Delivery O2 Flow Rate FiO2 05/11/19 04:28 93 Venturi Mask 6.0 28 3/25/20 22:00 98.0 78 17 144/81 (102) I&O- Last 24 Hours up to 6 AM 05/11/19 06:00 Intake Total 750 ml Output Total 1300 ml Balance -550 ml Laboratory Data 24H LABS Laboratory Tests 2 05/11/19 05:18: Immature Granulocyte % (Auto) 0.4, Neutrophils (%) (Auto) 85.1H, Lymphocytes (%) (Auto) 8.7L, Monocytes (%) (Auto) 5.2H, Eosinophils (%) (Auto) 0.4, Basophils (%) (Auto) 0.2, Neutrophils # (Auto) 7.0, Lymphocytes # (Auto) 0.7L, Monocytes # (Auto) 0.4, Eosinophils # (Auto) 0.0, Basophils # (Auto) 0.0, Nucleated Red Blood Cells % (auto) 0.0, Anion Gap 1L, Glomerular Filtration Rate > 60.0, Calcium Level 8.4L 05/11/19 07:57: Iron Level 34L, Total Iron Binding Capacity 215L, Transferrin % Saturation 15.8L, Ferritin 171, Vitamin B12 Level 1272H, Folate > 24.0 CBC/BMP Laboratory Tests 05/11/19 05:18 SHIMA ANDRADE MD May 11, 2019 12:31
[2019-05-11 14:00] VITALS: BP 122/65
[2019-05-11 21:00] VITALS: O2SAT 100
[2019-05-11] MEDS: OLANZapine 5 MG TAB PO SCH (21:37)
[2019-05-11] MEDS: ATORVASTATIN 20 MG TAB PO SCH (21:37)
[2019-05-11] MEDS: TAMSULOSIN 0.4 MG CAP PO SCH (21:37)
[2019-05-11 22:00] VITALS: BP 125/60
[2019-05-12] VITALS (8 sets, daily range): BP systolic 104–157; BP diastolic 50–77; O2SAT 94–100
[2019-05-12] MEDS: SODIUM CHLORIDE HYPERTONIC 3% 15ML NEB SOL INH SCH ×4 (02:21→20:07)
[2019-05-12] MEDS: LEVALBUTEROL 1.25 MG/0.5 ML CONCENTRATE NEB INH SCH ×6 (02:21→20:07)
[2019-05-12 06:06] LABS: HEMATOCRIT 24.8 % (42.0-52.0); HEMOGLOBIN 7.4 g/dl (13.5-17.5); MEAN CORPUSCULAR HEMOGLOBIN 28.2 pg (27.0-33.0); MEAN CORPUSCULAR HGB CONC 29.8 g/dl (32.0-36.5); MEAN CORPUSCULAR VOLUME 94.7 fl (80.0-96.0); PLATELET COUNT, AUTOMATED 245 10^3/uL (150-450); RED BLOOD COUNT 2.62 10^6/uL (4.30-6.10); WHITE BLOOD COUNT 8.4 10^3/uL (4.0-10.0)
[2019-05-12] MEDS: FOLIC ACID 1 MG TAB PO SCH (08:21)
[2019-05-12] MEDS: SENOKOT S TAB PO SCH ×2 (08:21→20:36)
[2019-05-12] MEDS: FERROUS SULFATE 325MG TAB PO SCH (08:21)
[2019-05-12] MEDS: NICOTINE 14 MG/24 HR TRANSDERMAL TD SCH (08:22)
[2019-05-12] MEDS: levETIRAcetam 250MG TABLET (KEPPRA) PO SCH ×2 (08:22→20:36)
[2019-05-12] MEDS: MAGNESIUM OXIDE 400 MG TAB (MAG-OX) PO SCH ×2 (08:22→20:36)
[2019-05-12] MEDS: MULTIVITAMINS/MINERALS THERAP 1 TAB PO SCH (08:26)
[2019-05-12] MEDS: PANTOPRAZOLE 40MG TAB (PROTONIX) PO SCH ×2 (08:26→20:37)
[2019-05-12] MEDS: SERTRALINE HCL 50 MG TAB PO SCH (08:26)
[2019-05-12] MEDS: SUCRALFATE 1 GM TAB PO SCH ×4 (08:27→20:36)
[2019-05-12] MEDS ORDERED: NS 1,000 ML IV SCH ×2 (09:00→09:20)
--- NOTE | 2019-05-12 12:44 | IPNPDOC ---
Subjective Date Seen The patient was seen on 05/12/19. Subjective Chief Complaint/HPI Camacho did not require VM overnight. He's alert this morning and using 8 liters, he mouths breath during sleep and drops his stats overnight, I have reduced him to 5 liters and his stats are still 100%. Continues to do well without bedside sitter, no overnight events of falls noted Objective Physical Examination General Exam: Positive: Alert, No Acute Distress Eye Exam: Positive: PERRLA, EOMI; Negative: Sclera icteric ENT Exam: Positive: Atraumatic, Pharynx Normal Neck Exam: Negative: JVD, thyromegaly Chest Exam: Positive: Clear to auscultation, Other (non-labored on 5 liters) Heart Exam: Positive: Rate Normal, Normal S1, Normal S2 Abdomen Exam: Positive: Soft; Negative: Normal bowel sounds, Tenderness Extremity Exam: Negative: Clubbing, Cyanosis, Edema Skin Exam: Negative: Rash Neuro Exam: Positive: Normal Speech Psych Exam: Positive: Mental status NL; Negative: Anxiety Assessment /Plan Assessment # Acute blood loss anemia due to GIB - iron tabs - iron panel reviewed - unable to scope due to respiratory status - protonix bid, may change to oral - hgb down today, will give 1unit PRBCs # Generalized weakness due to acute illness - PT/OT - agreeable to placement # Urinary retention - remove enriquez at discharge # Altered mental status r/o absence seizure - neuro consult reviewed - oral keppra 500 mg bid - EEG shows no seizure activity - MRI brain is normal - no further episodes of altered mental status since starting keppra, will continue # Acute metabolic encephalopathy due to GI bleed - resolved # Acute on chronic hypoxic and hypercarbic respiratory failure # Mucous plugging # COPD with moderate to severe pulmonary hypertension # Severe TR (not operative candidate) - improved - wean oxygen as tolerated - CXR 05/10 shows LLL atelectasis, continue CPT and IS # Severe protein calorie malnutrition - stopped TPN - continue with diet . # Acute Peritonitis secondary to bowel perforation - Culture + for Citrobacter and E.coli in the peritoneal fluid - s/p IV Zosyn x 10/10 days. # PAF with RVR - rate controlled - not candidate for anticoagulation due to GIB Dispo: - SNF when bed available Plan/VTE VTE Prophylaxis Ordered?: Yes VTE Exclusion Mechanical Proph: N/A:VTE Prophy Ordered VTE Exclusion Pharmacological: Thrombocytopenia VS, I&O, 24H, Fishbone Vital Signs/I&O Vital Signs Date Time Temp Pulse Resp B/P (MAP) Pulse Ox O2 Delivery O2 Flow Rate FiO2 05/12/19 12:00 97.8 65 16 104/67 94 Nasal Cannula 5.0 05/11/19 14:00 28 I&O- Last 24 Hours up to 6 AM 05/12/19 06:00 Intake Total 500 ml Output Total 1300 ml Balance -800 ml Laboratory Data 24H LABS Laboratory Tests 2 05/12/19 05:23: Nucleated Red Blood Cells % (auto) 0.0 CBC/BMP Laboratory Tests 05/12/19 05:23 SHIMA ANDRADE MD May 12, 2019 12:44
[2019-05-12] MEDS: OLANZapine 5 MG TAB PO SCH (20:36)
[2019-05-12] MEDS: ATORVASTATIN 20 MG TAB PO SCH (20:37)
[2019-05-12] MEDS: TAMSULOSIN 0.4 MG CAP PO SCH (20:37)
[2019-05-13] VITALS (8 sets, daily range): BP systolic 110–133; BP diastolic 57–75; O2SAT 98–100
[2019-05-13] MEDS: LEVALBUTEROL 1.25 MG/0.5 ML CONCENTRATE NEB INH SCH ×5 (01:43→20:20)
[2019-05-13] MEDS: SODIUM CHLORIDE HYPERTONIC 3% 15ML NEB SOL INH SCH ×2 (01:43→07:32)
[2019-05-13 06:05] LABS: HEMATOCRIT 24.5 % (42.0-52.0); HEMOGLOBIN 7.6 g/dl (13.5-17.5); MEAN CORPUSCULAR HEMOGLOBIN 29.6 pg (27.0-33.0); MEAN CORPUSCULAR VOLUME 95.3 fl (80.0-96.0); PLATELET COUNT, AUTOMATED 222 10^3/uL (150-450); RED BLOOD COUNT 2.57 10^6/uL (4.30-6.10); WHITE BLOOD COUNT 7.1 10^3/uL (4.0-10.0)
[2019-05-13] MEDS: SUCRALFATE 1 GM TAB PO SCH ×4 (08:05→20:14)
[2019-05-13] MEDS: NICOTINE 14 MG/24 HR TRANSDERMAL TD SCH (08:05)
[2019-05-13] MEDS: MAGNESIUM OXIDE 400 MG TAB (MAG-OX) PO SCH ×2 (08:05→20:13)
[2019-05-13] MEDS: FOLIC ACID 1 MG TAB PO SCH (08:06)
[2019-05-13] MEDS: PANTOPRAZOLE 40MG TAB (PROTONIX) PO SCH ×2 (08:06→20:14)
[2019-05-13] MEDS: SENOKOT S TAB PO SCH ×2 (08:06→20:15)
[2019-05-13] MEDS: SERTRALINE HCL 50 MG TAB PO SCH (08:06)
[2019-05-13] MEDS: FERROUS SULFATE 325MG TAB PO SCH (08:06)
[2019-05-13] MEDS: levETIRAcetam 250MG TABLET (KEPPRA) PO SCH ×2 (08:06→20:14)
[2019-05-13] MEDS: MULTIVITAMINS/MINERALS THERAP 1 TAB PO SCH (08:06)
--- NOTE | 2019-05-13 10:14 | IPNPDOC ---
Subjective Date Seen The patient was seen on 05/13/19. Subjective Chief Complaint/HPI Acmacho is resting in bed. He remains on hiflow oxygen. He denies any respiratory complaints. He reports that his stools are normal in color Objective Physical Examination General Exam: Positive: Alert, No Acute Distress Eye Exam: Positive: PERRLA, EOMI; Negative: Sclera icteric ENT Exam: Positive: Mucous membr. moist/pink Neck Exam: Negative: JVD, thyromegaly Chest Exam: Positive: Clear to auscultation; Negative: Rales, Rhonchi, Wheezing Heart Exam: Positive: Rate Normal, Normal S1, Normal S2 Abdomen Exam: Positive: Soft; Negative: Normal bowel sounds, Tenderness Extremity Exam: Negative: Clubbing, Cyanosis, Edema Skin Exam: Negative: Rash Neuro Exam: Positive: Normal Speech Psych Exam: Positive: Mental status NL; Negative: Anxiety Assessment /Plan Assessment # Acute blood loss anemia due to GIB - iron tabs - iron panel reviewed - unable to scope due to respiratory status - protonix bid, may change to oral - hgb only 7.6 gm/dl following tx, will give additional 1 unit today # Generalized weakness due to acute illness - PT/OT - agreeable to placement # Urinary retention - remove enriquez at discharge # Altered mental status r/o absence seizure - neuro consult reviewed - oral keppra 500 mg bid - EEG shows no seizure activity - MRI brain is normal - no further episodes of altered mental status since starting keppra, will continue # Acute metabolic encephalopathy due to GI bleed - resolved # Acute on chronic hypoxic and hypercarbic respiratory failure # Mucous plugging # COPD with moderate to severe pulmonary hypertension # Severe TR (not operative candidate) - improved - wean oxygen as tolerated - CXR 05/10 shows LLL atelectasis, continue CPT and IS # Severe protein calorie malnutrition - stopped TPN - continue with diet . # Acute Peritonitis secondary to bowel perforation - Culture + for Citrobacter and E.coli in the peritoneal fluid - s/p IV Zosyn x 10/10 days. # PAF with RVR - rate controlled - not candidate for anticoagulation due to GIB Dispo: - SNF when bed available Plan/VTE VTE Prophylaxis Ordered?: Yes VTE Exclusion Mechanical Proph: N/A:VTE Prophy Ordered VTE Exclusion Pharmacological: Thrombocytopenia VS, I&O, 24H, Fishbone Vital Signs/I&O Vital Signs Date Time Temp Pulse Resp B/P (MAP) Pulse Ox O2 Delivery O2 Flow Rate FiO2 05/13/19 08:00 6.0 05/13/19 06:00 97.2 75 19 123/68 (86) 88 High Flow Cannula 05/11/19 14:00 28 I&O- Last 24 Hours up to 6 AM 05/13/19 06:00 Intake Total 1410 ml Output Total 1475 ml Balance -65 ml Laboratory Data 24H LABS Laboratory Tests 2 05/13/19 05:54: Nucleated Red Blood Cells % (auto) 0.0 CBC/BMP Laboratory Tests 05/13/19 05:54 SHIMA ANDRADE MD May 13, 2019 10:14
[2019-05-13] MEDS ORDERED: NS 1,000 ML IV SCH (10:15)
[2019-05-13] MEDS: OLANZapine 5 MG TAB PO SCH (20:13)
[2019-05-13] MEDS: ATORVASTATIN 20 MG TAB PO SCH (20:14)
[2019-05-13] MEDS: TAMSULOSIN 0.4 MG CAP PO SCH (20:14)
[2019-05-14] MEDS: LEVALBUTEROL 1.25 MG/0.5 ML CONCENTRATE NEB INH SCH ×7 (01:19→23:48)
[2019-05-14 06:00] VITALS: BP 147/82
[2019-05-14 07:14] VITALS: O2SAT 97
[2019-05-14] MEDS: FERROUS SULFATE 325MG TAB PO SCH (08:05)
[2019-05-14] MEDS: SUCRALFATE 1 GM TAB PO SCH ×4 (08:05→20:32)
[2019-05-14] MEDS: PANTOPRAZOLE 40MG TAB (PROTONIX) PO SCH ×2 (08:05→20:32)
[2019-05-14] MEDS: SENOKOT S TAB PO SCH ×2 (08:05→20:32)
[2019-05-14] MEDS: MULTIVITAMINS/MINERALS THERAP 1 TAB PO SCH (08:05)
[2019-05-14] MEDS: NICOTINE 14 MG/24 HR TRANSDERMAL TD SCH (08:05)
[2019-05-14] MEDS: SERTRALINE HCL 50 MG TAB PO SCH (08:05)
[2019-05-14] MEDS: FOLIC ACID 1 MG TAB PO SCH (08:05)
[2019-05-14] MEDS: MAGNESIUM OXIDE 400 MG TAB (MAG-OX) PO SCH ×2 (08:05→20:32)
[2019-05-14] MEDS: levETIRAcetam 250MG TABLET (KEPPRA) PO SCH ×2 (08:05→20:31)
[2019-05-14 09:15] LABS: BASO % 0.3 % (0.0-1.0); EOS % 0.4 % (0.0-3.0); HEMATOCRIT 28.4 % (42.0-52.0); HEMOGLOBIN 8.7 g/dl (13.5-17.5); LYMPH # 0.7 10^3/uL (1.5-5.0); LYMPH % 9.2 % (24.0-44.0); MEAN CORPUSCULAR HEMOGLOBIN 28.9 pg (27.0-33.0); MEAN CORPUSCULAR HGB CONC 30.6 g/dl (32.0-36.5); MEAN CORPUSCULAR VOLUME 94.4 fl (80.0-96.0); MONO # 0.4 10^3/uL (0.0-0.8); MONO % 5.7 % (0.0-5.0); NEUTROPHILS % 83.8 % (36.0-66.0); PLATELET COUNT, AUTOMATED 222 10^3/uL (150-450); RED BLOOD COUNT 3.01 10^6/uL (4.30-6.10); WHITE BLOOD COUNT 7.2 10^3/uL (4.0-10.0)
[2019-05-14 10:00] VITALS: O2SAT 96
--- NOTE | 2019-05-14 11:21 | IPNPDOC ---
Subjective Date Seen The patient was seen on 05/14/19. Subjective Chief Complaint/HPI Camacho has had maroon stools overnight. Nothing this morning. Hgb levels are improved following transfusion. Oxygen needs are stable. Objective Physical Examination General Exam: Positive: Alert, Cooperative, No Acute Distress Eye Exam: Positive: PERRLA, EOMI; Negative: Sclera icteric ENT Exam: Positive: Mucous membr. moist/pink Neck Exam: Negative: JVD, thyromegaly Chest Exam: Positive: Clear to auscultation; Negative: Rales, Rhonchi, Wheezing Heart Exam: Positive: Rate Normal, Normal S1, Normal S2 Telemetry: Positive: Sinus Abdomen Exam: Positive: Soft; Negative: Normal bowel sounds, Tenderness Extremity Exam: Negative: Clubbing, Cyanosis, Edema Skin Exam: Negative: Rash Neuro Exam: Positive: Normal Speech Psych Exam: Positive: Mental status NL, Mood NL; Negative: Anxiety Assessment /Plan Assessment # Acute blood loss anemia due to GIB - iron tabs - iron panel reviewed - unable to scope due to respiratory status - protonix bid - hgb improved from 7.6 to 8.7 g/dl # Generalized weakness due to acute illness - PT/OT - agreeable to placement # Urinary retention - remove enriquez at discharge # Altered mental status r/o absence seizure - neuro consult reviewed - oral keppra 500 mg bid - EEG shows no seizure activity - MRI brain is normal - no further episodes of altered mental status since starting keppra, will continue # Acute metabolic encephalopathy due to GI bleed - resolved # Acute on chronic hypoxic and hypercarbic respiratory failure # Mucous plugging # COPD with moderate to severe pulmonary hypertension # Severe TR (not operative candidate) - improved - wean oxygen as tolerated - CXR 05/10 shows LLL atelectasis, continue CPT and IS # Severe protein calorie malnutrition - stopped TPN - continue with diet . # Acute Peritonitis secondary to bowel perforation - Culture + for Citrobacter and E.coli in the peritoneal fluid - s/p IV Zosyn x 10/10 days. # PAF with RVR - rate controlled - not candidate for anticoagulation due to GIB Dispo: - SNF when bed available Plan/VTE VTE Prophylaxis Ordered?: Yes VTE Exclusion Mechanical Proph: N/A:VTE Prophy Ordered VTE Exclusion Pharmacological: Thrombocytopenia VS, I&O, 24H, Fishbone Vital Signs/I&O Vital Signs Date Time Temp Pulse Resp B/P (MAP) Pulse Ox O2 Delivery O2 Flow Rate FiO2 05/14/19 10:00 96 Nasal Cannula 6.0 05/14/19 06:00 98.2 70 16 147/82 (103) 05/13/19 14:15 100 I&O- Last 24 Hours up to 6 AM 05/14/19 06:00 Intake Total 625 ml Output Total 1150 ml Balance -525 ml Laboratory Data 24H LABS Laboratory Tests 2 05/14/19 09:08: Immature Granulocyte % (Auto) 0.6, Neutrophils (%) (Auto) 83.8H, Lymphocytes (%) (Auto) 9.2L, Monocytes (%) (Auto) 5.7H, Eosinophils (%) (Auto) 0.4, Basophils (%) (Auto) 0.3, Neutrophils # (Auto) 6.0, Lymphocytes # (Auto) 0.7L, Monocytes # (Auto) 0.4, Eosinophils # (Auto) 0.0, Basophils # (Auto) 0.0, Nucleated Red Blood Cells % (auto) 0.0 CBC/BMP Laboratory Tests 05/14/19 09:08 SHIMA ANDRADE MD May 14, 2019 11:21
[2019-05-14 14:00] VITALS: BP 142/80
[2019-05-14] MEDS: OLANZapine 5 MG TAB PO SCH (20:31)
[2019-05-14] MEDS: ATORVASTATIN 20 MG TAB PO SCH (20:32)
[2019-05-14] MEDS: TAMSULOSIN 0.4 MG CAP PO SCH (20:32)
[2019-05-14 21:00] VITALS: O2SAT 100
[2019-05-14 22:00] VITALS: BP 142/78
[2019-05-15] MEDS: LEVALBUTEROL 1.25 MG/0.5 ML CONCENTRATE NEB INH SCH ×3 (03:41→11:38)
[2019-05-15 06:00] VITALS: BP 146/74
[2019-05-15 06:24] LABS: BASO % 0.4 % (0.0-1.0); EOS % 0.6 % (0.0-3.0); HEMATOCRIT 27.2 % (42.0-52.0); HEMOGLOBIN 8.1 g/dl (13.5-17.5); LYMPH # 0.7 10^3/uL (1.5-5.0); LYMPH % 9.9 % (24.0-44.0); MEAN CORPUSCULAR HEMOGLOBIN 28.1 pg (27.0-33.0); MEAN CORPUSCULAR HGB CONC 29.8 g/dl (32.0-36.5); MEAN CORPUSCULAR VOLUME 94.4 fl (80.0-96.0); MONO # 0.5 10^3/uL (0.0-0.8); MONO % 6.8 % (0.0-5.0); NEUTROPHILS # 5.9 10^3/uL (1.5-8.5); NEUTROPHILS % 81.6 % (36.0-66.0); PLATELET COUNT, AUTOMATED 219 10^3/uL (150-450); RED BLOOD COUNT 2.88 10^6/uL (4.30-6.10); WHITE BLOOD COUNT 7.2 10^3/uL (4.0-10.0)
[2019-05-15] MEDS: MAGNESIUM OXIDE 400 MG TAB (MAG-OX) PO SCH (09:02)
[2019-05-15] MEDS: SENOKOT S TAB PO SCH (09:02)
[2019-05-15] MEDS: FOLIC ACID 1 MG TAB PO SCH (09:02)
[2019-05-15] MEDS: levETIRAcetam 250MG TABLET (KEPPRA) PO SCH (09:02)
[2019-05-15] MEDS: PANTOPRAZOLE 40MG TAB (PROTONIX) PO SCH (09:02)
[2019-05-15] MEDS: FERROUS SULFATE 325MG TAB PO SCH (09:02)
[2019-05-15] MEDS: SERTRALINE HCL 50 MG TAB PO SCH (09:02)
[2019-05-15] MEDS: MULTIVITAMINS/MINERALS THERAP 1 TAB PO SCH (09:02)
[2019-05-15] MEDS: SUCRALFATE 1 GM TAB PO SCH (09:03)
[2019-05-15] MEDS: NICOTINE 14 MG/24 HR TRANSDERMAL TD SCH (09:03)
[2019-05-15] MEDS ORDERED: NICO14PA TD (10:20)
[2019-05-15] MEDS ORDERED: KEPP250T5 PO (10:20)
[2019-05-15] MEDS ORDERED: SUCR1TA PO (10:20)
[2019-05-15] MEDS ORDERED: FLOM0.4C39 PO (10:20)
[2019-05-15] MEDS ORDERED: FERR325T18 PO (10:20)
[2019-05-15] MEDS ORDERED: PANT40TA3 PO (10:20)
[2019-05-15] MEDS ORDERED: FOLI1TAB11 PO (10:20)
[2019-05-15] MEDS ORDERED: VITMTA PO (10:20)
[2019-05-15] MEDS ORDERED: MAG400TA PO (10:20)
[2019-05-15] MEDS ORDERED: LEVA12INH INH (10:20)
[2019-05-15] MEDS ORDERED: LEVO50TA5 PO (11:05)
--- NOTE | 2019-05-15 12:27 | DSES ---
DATE OF ADMISSION: 04/08/2019 DATE OF DISCHARGE: 05/15/2019 DISCHARGE DIAGNOSES: 1. Acute peritonitis secondary to suspected posterior duodenal perforation. 2. Acute peritonitis with intra-abdominal cultures positive for E. coli and Citrobacter. 3. Status post exploratory laparotomy during this hospitalization. 4. Elective endotracheal intubation and subsequent extubation during this hospitalization. 5. Acute on chronic hypoxic and hypercarbic respiratory failure. 6. Acute on chronic diastolic congestive heart failure (CHF). 7. Sepsis secondary to suspected duodenal perforation. 8. Hypoglycemia due to acute illness. 9. Chronic respiratory failure secondary to chronic obstructive pulmonary disease (COPD) exacerbation. 10. Severe protein calorie malnutrition. 11. Possible complex partial seizures. 12. Acute blood loss anemia secondary to gastrointestinal (GI) bleed requiring transfusion of 6 units of packed red blood cells during this hospitalization. 13. Paroxysmal atrial fibrillation with rapid ventricular rate. 14. Acute thrombocytopenia secondary to acute blood loss anemia and acute illness from sepsis. 15. Acute metabolic encephalopathy due to acute illness. 16. Urinary retention requiring indwelling Diaz catheter. 17. Generalized weakness secondary to deconditioning from acute illness and prolonged hospital stay. 18. Scattered linear left upper lobe pulmonary nodule, which will need followup CT in six months time. CONSULTANTS ON THE CASE: 1. Internal medicine, hospitalist service Dr. Chowdary. 2. Dr. Ambrose of pulmonary critical care. 3. Dr. Tran of infectious disease. 4. Neurology, Dr. Fleming. 5. General surgery, Dr. Gonzales, who initially admitted the patient but transferred service to the hospitalist service once his surgical issues were stable. PROCEDURES PERFORMING DURING HOSPITALIZATION: 1. Exploratory laparotomy with abdominal washout and mobilization of the duodenum. 2. Right arm PICC line placement. 3. Elective endotracheal intubation with subsequent endotracheal extubation. DISPOSITION: The patient will be discharged to [facility] today. CONDITION AT DISCHARGE: Stable with temperature of 98.1, pulse of 81 and regular, respirations of 20, blood pressure 146/74, and requires 5 liters of nasal cannula. DISCHARGE INSTRUCTIONS: 1. The patient is instructed to followup with his primary care provider. He is to have a repeat CT of his chest in approximately 6 months to evaluate a nodule that was noted. 2. The patient is to followup with neurology in 4 weeks, Dr. Fleming. 3. Followup with urology in approximately 2 weeks time for evaluation of his urinary retention. RELEVANT LABS: Intra-abdominal cultures grew Citrobacter Freundii and E. Coli. Blood cultures obtained during this hospitalization did not show any growth. Intra-abdominal fungal cultures did not grow any fungus. The patient did have stool that was positive for occult blood. Influenza A and B are negative. Beta-(1-3)-D-Glucan is 39. Heparin-induced thrombocytopenia (HIT) was 0.143. Ethyl alcohol on admission was less than 0.003. Urinalysis was unremarkable. INR 1.04, PTT 25.2, PT was 13.3. Iron level was 34, TIBC was 215, ferritin 171, vitamin B12 was 1272, folate greater than 24, procalcitonin 0.10, peak was 0.37 this hospitalization. TSH was 10.5. Sodium 144, potassium 3.6, chloride 102, bicarb 41, anion gap 1, BUN 19, creatinine 0.42, calcium 8.4. Serial troponin markers were negative. NT-proBNP was 7533. Hemoglobin A1c was 5.8. Ammonia level was 25, lipase level was 111, albumin 2.5, total protein 5.5, AST 127, ALT 104, alkaline phosphatase 119, lactic acid 1.6. IMAGING: The patient has had serial chest x-rays. Please reference individual reports for details. The most recent one done no 05/11/2019 showed the shift of the heart and mediastinal structures to the left, which is new, with scattered consolidative opacity in the left lower lobe representing atelectasis with possible underlying infiltrate. There is blunting of the costophrenic angle suspicious for small effusion. No infiltrate was seen on the right. Here was calcification of the thoracic aorta. There are mild degenerative changes of the spine. MRI of the brain showed no acute intracranial pathology. EEG showed no active seizure wave pattern. Upper gastrointestinal with small bowel through showed no evidence for anastomotic leak. CT of the chest showed small right and moderate left pleural effusion, 7 mm left upper lobe pulmonary nodule. Initial CT of the abdomen and pelvis showed small amount of free intraperitoneal air, origin uncertain. Finding raises concern for perforated viscus. Ascites with anasarca and diffuse infiltration of the mesenteric fat planes which markedly limited evaluation for superimposed acute inflammatory change. Extensive diverticulosis, poor evaluation for diverticulitis as above. DISCHARGE MEDICATIONS: - ferrous sulfate 225 mg by mouth daily - folic acid 1 mg daily - Xopenex 1.25 mg every 4 hours as needed - Keppra 500 mg twice a day - Synthroid 50 mcg daily - magnesium oxide 400 mg twice a day - multivitamin one tablet daily - nicotine patch daily - Protonix 40 mg twice a day - Carafate 1 gram at bedtime - Flomax 0.4 mg at bedtime - atorvastatin 20 mg at bedtime - albuterol inhaler every 4 hours as needed - Advair one puff twice a day - olanzapine 15 mg at bedtime - sertraline 50 mg daily - senna one capsule daily Medications that have been presently stopped but will need to be resume once the patient's blood pressure and overall health have improved are his lisinopril, 10 mg by mouth daily, metoprolol 25 mg at bedtime, torsemide 10 mg by mouth daily. These are the medications he was taking for his hypertension as well as for his chronic diastolic congestive heart failure. His blood pressure has been stable and he has been adequately diuresed and did not need to be place on maintenance medications at this time because he is not noted to have any worsening chronic diastolic congestive heart failure. HOSPITAL COURSE: Mr. Salas is a 74-year-old gentleman with a host of comorbid medical conditions which include chronic respiratory failure, significant COPD, he had been using 3 liters of oxygen at home. He was also an active smoker. The patient had presented to the hospital on 04/08/19 with complaints of abdominal pain, nausea, vomiting and having bloody stools. CT of the abdomen and pelvis done in the ER department was concerning for perforated viscus. He was taken to the operating room by Dr. Gonzales who performed and exploratory laparotomy. No source of the peritoneal air was noted after running the bowel. He suspected that he could have had a posterior duodenal perforation that was not visualized. Postprocedure, the patient could not be extubated from the vent. He was transferred to the ICU. Dr. Ambrose of critical care was consulted. The patient was successfully extubated the following day, however he continued to have issues with acute on chronic respiratory failure associated with hypoxia and hypercarbia and required BiPAP monitoring in the ICU. The patient was treated with intravenous antibiotic consisting of Zosyn on admission to the hospital. He was initially admitted to the surgical service and was ultimately transferred to the hospitalist service once his surgical conditions were stabilized. The patient was kept nothing by mouth for a period of time. He was noted to be severely malnourished. He was placed on TPN. This was eventually discontinued with continuation of diet. He was noted to have acute thrombocytopenia. Heparin antibodies were checked. These came back as being negative. His platelet counts did rebound. He did not receive heparin for a significant amount of time. The patient was noted to have ongoing bloody stools. He required a total of 6 units of packed red blood cells to be transfused during this hospitalization. GI was not consulted and due to the patient's tenuous respiratory status he was not a candidate for any GI procedure requiring sedation. The patient was managed conservatively with IV transfusions as well as IV Protonix. His hemoglobin levels stabilized, relatively speaking. The patient was ultimately transferred to the floor where he was noted to have urinary retention. A Diaz catheter was placed and this unsuccessful in being weaned of. He was noted to have paroxysmal atrial fibrillation with rapid ventricular rate on telemetry. This initially was managed with metoprolol, however with drop in his blood pressures it was discontinued. The patient was not a candidate for anticoagulation due to his ongoing GI bleed at the time. While on the floor, the patient was noted to have a period of loss of consciousness. There was concern whether he could be having complex partial seizures. He was empirically placed on Keppra with resolution of his symptoms and EEG did not show any seizure activity. He was seen by Dr. Fleming in consultation who recommended continuing the Keppra. An MRI of the brain failed to show any structural lesions. The patient had grown Citrobacter as well as E. coli in his peritoneal fluid cultures. Infectious disease was consulted who recommended continuing Zosyn. No fungal organisms grew on the fungal cultures, and therefore, he was not treated with any antifungal agents. Clinically patient has continued to improved. He has been by physical therapy/occupational therapy (PT/OT) and respiratory therapy weaned him down to 5 liters nasal cannula. He has continued to progress and is looking forward to rehabilitation and will be discharged to [facility] in stable condition today. A total of 40 minutes was spent completing discharge paperwork.
== END 2019-05-15 12:35 | DRG 853 ==
LOC: M ED 20:17 → M ED INP 23:25 → M ICU 04-09 03:40 → M MSPAV 04-10 18:02 → M ICU 04-13 05:59 → M PCU 04-16 15:40 → M MSPAV 04-19 16:15 → M PCU 04-23 12:20 → M MSPAV 05-07 16:02
PROVIDERS: ADMIT Surgery; ATTEND Internal Medicine
PROC: 02HV33Z Insertion of Infusion Device into Superior Vena Cava, Percutaneous Approach (ICD-10-PCS; 2019-04-09)
PROC: 3E0436Z Introduction of Nutritional Substance into Central Vein, Percutaneous Approach (ICD-10-PCS; 2019-04-09)
PROC: 3E1M38Z Irrigation of Peritoneal Cavity using Irrigating Substance, Percutaneous Approach (ICD-10-PCS; 2019-04-09)
PROC: 0WJG0ZZ Inspection of Peritoneal Cavity, Open Approach (ICD-10-PCS; principal; 2019-04-09 00:10)
PROC: 30233N1 Transfusion of Nonautologous Red Blood Cells into Peripheral Vein, Percutaneous Approach (ICD-10-PCS; 2019-04-19)
DX: A41.9 Sepsis, unspecified organism (principal); J96.21 Acute and chronic respiratory failure with hypoxia; E43 Unspecified severe protein-calorie malnutrition; J96.22 Acute and chronic respiratory failure with hypercapnia; K65.9 Peritonitis, unspecified; K26.5 Chronic or unspecified duodenal ulcer with perforation; G93.41 Metabolic encephalopathy; I50.33 Acute on chronic diastolic (congestive) heart failure; I48.92 Unspecified atrial flutter; I42.2 Other hypertrophic cardiomyopathy; K92.0 Hematemesis; K92.1 Melena; Z68.1 Body mass index [BMI] 19.9 or less, adult; R64 Cachexia; D62 Acute posthemorrhagic anemia; G40.A09 Absence epileptic syndrome, not intractable, without status epilepticus; Z66 Do not resuscitate; J43.9 Emphysema, unspecified; I11.0 Hypertensive heart disease with heart failure; F20.9 Schizophrenia, unspecified; E78.5 Hyperlipidemia, unspecified; E16.2 Hypoglycemia, unspecified; I36.1 Nonrheumatic tricuspid (valve) insufficiency; R91.1 Solitary pulmonary nodule; E86.0 Dehydration; R68.0 Hypothermia, not associated with low environmental temperature; F32.9 Major depressive disorder, single episode, unspecified; D72.819 Decreased white blood cell count, unspecified; B96.89 Other specified bacterial agents as the cause of diseases classified elsewhere; B96.20 Unspecified Escherichia coli [E. coli] as the cause of diseases classified elsewhere; R33.9 Retention of urine, unspecified; D69.6 Thrombocytopenia, unspecified; F10.20 Alcohol dependence, uncomplicated; R74.0 Nonspecific elevation of levels of transaminase and lactic acid dehydrogenase [LDH]; E87.5 Hyperkalemia; I27.20 Pulmonary hypertension, unspecified; F17.210 Nicotine dependence, cigarettes, uncomplicated; Z87.81 Personal history of (healed) traumatic fracture; Z79.899 Other long term (current) drug therapy; Z99.81 Dependence on supplemental oxygen

== ENCOUNTER 2019-05-25 13:28 | Inpatient (IN) | payer MEDICARE ==
[~2019-05-25] VITALS: Ht 167.6 cm; Wt 50.0 kg
[~2019-05-25 13:28] MED LIST changes: +FERR325T18 PO; +FLOM0.4C39 PO; +FOLI1TAB11 PO; +KEPP250T5 PO; +LEVA12INH INH; +LEVO50TA5 PO; +MAG400TA PO; +NICO14PA TD; +SUCR1TA PO; +VITMTA PO
[2019-05-25 14:57] VITALS: BP 140/54
[2019-05-25 16:00] VITALS: BP 138/62
[2019-05-25 16:27] LABS: HEMATOCRIT 23.9 % (42.0-52.0); HEMOGLOBIN 7.2 g/dl (13.5-17.5); MEAN CORPUSCULAR HEMOGLOBIN 29.1 pg (27.0-33.0); MEAN CORPUSCULAR HGB CONC 30.1 g/dl (32.0-36.5); MEAN CORPUSCULAR VOLUME 96.8 fl (80.0-96.0); PLATELET COUNT, AUTOMATED 274 10^3/uL (150-450); RED BLOOD COUNT 2.47 10^6/uL (4.30-6.10); WHITE BLOOD COUNT 9.1 10^3/uL (4.0-10.0)
[2019-05-25 16:46] LABS: ALT/SGPT 41 U/L (12-78); BILIRUBIN,TOTAL 0.2 MG/DL (0.2-1.0); BLOOD UREA NITROGEN 18 MG/DL (7-18); CALCIUM LEVEL 8.1 MG/DL (8.8-10.2); CARBON DIOXIDE LEVEL 40 MEQ/L (21-32); CHLORIDE LEVEL 103 MEQ/L (98-107); CREATININE FOR GFR 0.55 MG/DL (0.70-1.30); GLOMERULAR FILTRATION RATE > 60.0 (>42); GLUCOSE, FASTING 88 MG/DL (70-100); SODIUM LEVEL 143 MEQ/L (136-145); TOTAL PROTEIN 5.8 GM/DL (6.4-8.2)
[2019-05-25] MEDS ORDERED: GLUC1LIQ7 PO (17:29)
[2019-05-25] MEDS ORDERED: FOLI1TAB11 PO (17:38)
[2019-05-25] MEDS ORDERED: LEVO25TA5 PO (17:38)
[2019-05-25] MEDS ORDERED: NICO14DI6 TD (17:38)
[2019-05-25] MEDS ORDERED: FERR325T18 PO (17:38)
[2019-05-25] MEDS ORDERED: PANT-23 PO (17:38)
[2019-05-25] MEDS ORDERED: LEVE250T5 PO (17:38)
[2019-05-25] MEDS ORDERED: LEVA1.2519 INH (17:38)
[2019-05-25] MEDS ORDERED: THERTAB68 PO (17:43)
[2019-05-25] MEDS ORDERED: SUCR1TAB56 PO (17:43)
[2019-05-25] MEDS ORDERED: MAGN400T2 PO (17:43)
[2019-05-25] MEDS ORDERED: FLOM0.4C39 PO (17:43)
[2019-05-25] MEDS ORDERED: DULC10SU2 PR (17:50)
[2019-05-25] MEDS ORDERED: MILKSUS3 PO (17:50)
[2019-05-25] MEDS ORDERED: FUROSEMIDE 40MG/4ML VIAL (J1940) IV ONE (18:00)
[2019-05-25] MEDS: ADVAIR HFA 230/21MCG INHALER INH SCH (19:51)
[2019-05-25] MEDS: LEVALBUTEROL 1.25 MG/0.5 ML CONCENTRATE NEB INH SCH (19:52)
[2019-05-25 20:00] VITALS: BP 120/58
[2019-05-25 20:29] LABS: FERRITIN 190 NG/ML (26-388)
[2019-05-25 21:20] VITALS: BP 143/72
[2019-05-25] MEDS: PANTOPRAZOLE 40MG INJ (PROTONIX) (C9113) IV SCH (21:34)
[2019-05-25] MEDS: ATORVASTATIN 20 MG TAB PO SCH (21:35)
[2019-05-25] MEDS: FERROUS SULFATE 325MG TAB PO SCH (21:35)
[2019-05-25] MEDS: OLANZapine 5 MG TAB PO SCH (21:35)
[2019-05-25] MEDS: SUCRALFATE 1 GM TAB PO SCH (21:35)
[2019-05-25] MEDS: MAGNESIUM OXIDE 400 MG TAB (MAG-OX) PO SCH (21:35)
[2019-05-25] MEDS: levETIRAcetam 250MG TABLET (KEPPRA) PO SCH (21:35)
[2019-05-25 21:45] VITALS: BP 134/69
--- NOTE | 2019-05-25 22:16 | HPEPDOC ---
General Date of Admission May 25, 2019 at 15:18 Date of Service: May 25, 2019 Chief Complaint The patient is a 74-year-old male admitted with a reason for visit of Gi Bleed. History of Present Illness 74 year old male with PMH of COPD with chronic respiratory failure with hypoxia and hypercarbia, Chronic anemia from Feb 2019, GI bleeding felt to be due to duodenal ulcer however no recent EGD or colonoscopy, prolonged hospitalization from 04/08/19 to 05/15 19 at [facility] for suspected perforated posterior duodenal ulcer with peritonitis complicated by acute respiratory failure , copd exacerbation, sepsis, acute urinary retension now has a chronic enriquez was discharged to [facility] on 04/3019. Patient had a CBC done today and found to have an HH so was sent to the [facility] from the [facility] for blood transfusion. Hb at [facility] was 6.8, fecal occult blood was positive. Because of his recen t prolonged hospitalization and surgery here he was transferred here for Acute on chronic anemia and possible chronic GIB. Patient denied any black tarry stools after discharge from hospital. He denied any abdominal pain, nausea or vomiting. However as per records from [facility] patient apparently had black stools on 05/24/19 at the [facility] so HH was sent which was found to be low so was sent to the ED. Patient was admitted for acute on chronic anemia and GIB possibly acute on chronic. Home Medications Scheduled Atorvastatin Calcium (Atorvastatin Calcium) 20 Mg Tab, 20 MG PO QHS, (Reported) Ferrous Sulfate (Ferrous Sulfate) 325 Mg Tablet, 325 MG PO BID, (Reported) Fluticasone Propion/Salmeterol (Fluticasone-Salmeterol 250-50) 1 Each Blst.w.dev, 1 PUFF PO BID, (Reported) Folic Acid (Folic Acid) 1 Mg Tablet, 1 MG PO DAILY, (Reported) Levalbuterol HCl (Levalbuterol HCl) 1.25 Mg/3 Ml Vial.neb, 1.25 MG INH Q4H, (Reported) Levetiracetam (Levetiracetam) 250 Mg Tablet, 250 MG PO BID, (Reported) Levothyroxine Sodium (Levothyroxine Sodium) 25 Mcg Tablet, 25 MCG PO QAM, (Reported) Magnesium Oxide (Magnesium Oxide) 400 Mg Tablet, 400 MG PO BID, (Reported) Multivit,Calc,Mins/Iron/Folic (Thera-Tabs M Caplet) 1 Each Tablet, 1 TAB PO DAILY, (Reported) Nicotine (Nicotine Patch) 14 Mg Patch.td24, 14 MG TD DAILY, (Reported) LEFT ARM Olanzapine (Olanzapine) 15 Mg Tablet, 15 MG PO QHS, (Reported) Pantoprazole Sodium (Pantoprazole Sodium) 40 Mg Tablet.dr, 40 MG PO BID, (Reported) Sertraline Hcl (Sertraline HCl) 50 Mg Tablet, 50 MG PO DAILY, (Reported) Sucralfate (Sucralfate) 1 Gm Tablet, 1 GM PO ACHS, (Reported) Tamsulosin HCl (Flomax) 0.4 Mg Capsule, 0.4 MG PO DAILY, (Reported) Tiotropium [place] (Spiriva) 18 Mcg Cap.w.dev, 1 CAP INH DAILY, (Reported) Scheduled PRN Albuterol Sulfate (Ventolin Hfa) 18 Gm Hfa.aer.ad, 2 PUFF INH Q4H PRN for wheezing, (Reported) Bisacodyl (Dulcolax) 10 Mg Supp.rect, 10 MG NE DAILY PRN for CONSTIPATION, (Reported) Magnesium Hydroxide (Milk of Magnesia) 400 Mg/5 Ml Oral.susp, 30 ML PO DAILY PRN for CONSTIPATION, (Reported) Allergies Coded Allergies: No Known Allergies (Unverified , 10/31/18) Past Medical History Medical History Chronic anemia since feb 2019 GI bleeding from Peptic ulcer disease most likely from duodenal ulcer Chronic diastolic congestive heart failure (CHF). Chronic respiratory failure with hypoxia and hypercarbia COPD Schizophrenia. Hyperlipidemia. Depression. Hypertension with severe hypertensive heart disease or possibly hypertrophic cardiomyopathy with probably secondary pulmonary hypertension Severe protein calorie malnutrition. Possible complex partial seizures. Paroxysmal atrial fibrillation with rapid ventricular rate. BPH Hypothyroid H/O Alcohol abuse Urinary retention with chronic indwelling Enriquez catheter. AAA 3.1 cm H/O Acute peritonitis and sepsis secondary to suspected posterior duodenal perforation intra-abdominal cultures positive for E. coli and Citrobacter in Mar 2019 Status post exploratory laparotomy in march 2019 which did not reveal any perforation thought to have closed spontaneously Elective endotracheal intubation and subsequent extubation in april post surgery. Acute on chronic hypoxic and hypercarbic respiratory failure in last admission H/o Acute blood loss anemia secondary to gastrointestinal (GI) bleed Generalized weakness secondary to deconditioning from acute illness and prolonged hospital stay. Scattered linear left upper lobe pulmonary nodule, which will need followup CT in six months time. The patient reports neck surgery has anterior cervical scar. I suspect he may have had cervical spine surgery. Family History Significant Family History: No pertinent family hx (discussed with patient) Social History * Smoker: former Smoker Alcohol: sober (used ot be a heavy drinker preor to admission on 04/08) Drugs: denies A-FIB/CHADSVASC A-FIB History Current/History of A-Fib/PAF?: Yes Current PO Anticoag Therapy: No Review of Systems Constitutional: Denies: Chills, Fever, Night Sweats Eyes: Denies: Pain, Vision change ENT: Denies: Head Aches, Ear Pain, Dysphagia Skin: Denies: Rash, Lesions, Breakdown Pulmonary: Denies: Dyspnea, Cough Cardiovascular: Denies: Chest Pain, Palpitations, Orthopnea, Paroxysmal Noc. Dyspnea, Lt Headedness Gastrointestinal: Denies: Nausea, Vomiting, Abdominal Pain, Diarrhea Genitourinary: Reports: Retention Musculoskeletal: Reports: Back Pain Psych: Reports: Depression Physical Examination General Exam: Positive: Alert, Cooperative, No Acute Distress Eye Exam: Positive: PERRLA, Conjunctiva & lids normal, EOMI; Negative: Sclera icteric ENT Exam: Positive: Atraumatic, Mucous membr. moist/pink, Pharynx Normal Neck Exam: Positive: Supple; Negative: JVD, thyromegaly Chest Exam: Positive: Diminished, Other (diffuse crackles at the bases) Heart Exam: Positive: Rate Normal, Regular Rhythm, Normal S1, Normal S2; Negative: Murmurs, Rubs Abdomen Exam: Positive: Normal bowel sounds, Soft; Negative: Tenderness, Hepatospenomegaly Extremity Exam: Negative: Clubbing, Cyanosis, Edema Vital Signs Vital Signs Date Time Temp Pulse Resp B/P (MAP) Pulse Ox O2 Delivery O2 Flow Rate FiO2 05/25/19 16:00 138/62 (87) Nasal Cannula 5.0 05/25/19 14:57 97.5 75 20 96 Laboratory Data Labs 24H Laboratory Tests 2 05/25/19 16:13: Nucleated Red Blood Cells % (auto) 0.0, Anion Gap 0L, Glomerular Filtration Rate > 60.0, Calcium Level 8.1L, Total Bilirubin 0.2, Aspartate Amino Transf (AST/SGOT) 28, Alanine Aminotransferase (ALT/SGPT) 41, Alkaline Phosphatase 76, Total Protein 5.8L, Albumin 2.0L, Albumin/Globulin Ratio 0.53L CBC/BMP Laboratory Tests 05/25/19 16:13 Assessment/Plan 74 year old male with PMH of COPD with chronic respiratory failure with hypoxia and hypercarbia, Chronic anemia from Feb 2019, GI bleeding felt to be due to duodenal ulcer however no recent EGD or colonoscopy, prolonged hospitalization from 04/08/19 to 05/15 19 at [facility] for suspected perforated posterior duodenal ulcer with peritonitis complicated by acute respiratory failure , copd exacerb ation, sepsis, acute urinary retension now has a chronic enriquez was [facility] on 04[facility]. Patient had a CBC done today and found to have an HH so was sent to the [facility] from the [facility] for blood transfusion. Hb at [facility] was 6.8, fecal occult blood was positive. Because of his recent prolonged hospitalization and surgery here he was transferred here for Acute on chronic anemia and possible chronic GIB. Patient denied any black tarry stools after discharge from hospital. He denied any abdominal pain, nausea or vomiting. However as per records from [facility] patient apparently had black stools on 05/24/19 at the [facility] so HH was sent which was found to be low so was sent to the ED. Patient was admitted for acute on chronic anemia and GIB possibly acute on chronic. Acute on chronic Anemia due to GIB ? cause now. Had duodenal ulcer in mar 2019 however has been on appropriate treatment so should have been healed Last received PRBC on 05/11-05/12. During the last hospitalization he has received several units when there was a slow down trending during the course of hospitalization 04/18 x2 , 04/22 x2, 05/11. 05/12 has not had any recent EGD or colonoscopy No overt bleeding noted today will transfuse 2 units of PRBC, monitor HH, If continues to drop will consult surgery/ GI for EGD/colonoscopy Duodenal ulcer/ peptic ulcer disease continue pantoprazole and sucralfate. patient has been on on treatment for more than 6 weeks so the ulcer should be healed by now Iron deficiency anemia on supplements Ferritin level OK. No vit B12 or folate deficiency from GIB chronic and acute on chronic felt to be from peptic ulcer disease specifically duodenal ulcer COPD with chronic respiratory failure with hypoxia and hypercarbia no exacerbation at present continue advair, spiriva, albuterol, xopenex, oxygen supplementation Hypertension with hypertensive heart disease continue home meds Diastolic CHF and moderate to severe pulmonary hypertension not in any exacerbation at present monitor for fluid overload. Lasix prn. Complex partial seizure keppra Schichophrenia, depression sertraline, olanzapine BPH with chronic urinary retension flomax, cont enriquez care. Protein calorie malnutrition albumin of 2.0, BMI of 19, bitemporal wasting. Hypothyroid synthroid Hyperlipidemia statin AAA infrarenal 3.1 cm. Plan / VTE VTE Prophylaxis Ordered?: Yes ELIAS MORROW MD May 25, 2019 20:05
[2019-05-25 22:30] VITALS: BP 138/74
[2019-05-26] VITALS (8 sets, daily range): BP systolic 111–138; BP diastolic 56–71
[2019-05-26] MEDS: LEVALBUTEROL 1.25 MG/0.5 ML CONCENTRATE NEB INH SCH ×4 (02:11→19:57)
[2019-05-26 04:57] LABS: BASO % 0.4 % (0.0-1.0); EOS # 0.1 10^3/uL (0.0-0.5); EOS % 1.4 % (0.0-3.0); LYMPH # 0.9 10^3/uL (1.5-5.0); LYMPH % 10.3 % (24.0-44.0); MEAN CORPUSCULAR HEMOGLOBIN 29.7 pg (27.0-33.0); MEAN CORPUSCULAR VOLUME 92.9 fl (80.0-96.0); MONO # 0.5 10^3/uL (0.0-0.8); MONO % 5.6 % (0.0-5.0); NEUTROPHILS # 7.4 10^3/uL (1.5-8.5); NEUTROPHILS % 81.1 % (36.0-66.0); PLATELET COUNT, AUTOMATED 264 10^3/uL (150-450); RED BLOOD COUNT 3.23 10^6/uL (4.30-6.10); WHITE BLOOD COUNT 9.1 10^3/uL (4.0-10.0)
[2019-05-26 05:03] LABS: HEMOGLOBIN 9.6 g/dl (13.5-17.5)
[2019-05-26 05:26] LABS: BLOOD UREA NITROGEN 17 MG/DL (7-18); CALCIUM LEVEL 8.6 MG/DL (8.8-10.2); CARBON DIOXIDE LEVEL 40 MEQ/L (21-32); CHLORIDE LEVEL 101 MEQ/L (98-107); CREATININE FOR GFR 0.56 MG/DL (0.70-1.30); GLOMERULAR FILTRATION RATE > 60.0 (>42); GLUCOSE, FASTING 75 MG/DL (70-100); POTASSIUM SERUM 4.1 MEQ/L (3.5-5.1); SODIUM LEVEL 144 MEQ/L (136-145)
[2019-05-26] MEDS: SUCRALFATE 1 GM TAB PO SCH ×4 (06:10→20:50)
[2019-05-26] MEDS: LEVOTHYROXINE 25MCG TABLET (0.025MG) PO SCH (06:10)
[2019-05-26] MEDS: ADVAIR HFA 230/21MCG INHALER INH SCH ×2 (07:27→19:56)
[2019-05-26] MEDS: TIOTROPIUM INHALER/CAPSULE (SPIRIVA) INH SCH (07:29)
[2019-05-26] MEDS: levETIRAcetam 250MG TABLET (KEPPRA) PO SCH ×2 (09:53→20:49)
[2019-05-26] MEDS: PANTOPRAZOLE 40MG INJ (PROTONIX) (C9113) IV SCH ×2 (09:53→20:50)
[2019-05-26] MEDS: SERTRALINE HCL 50 MG TAB PO SCH (09:53)
[2019-05-26] MEDS: MAGNESIUM OXIDE 400 MG TAB (MAG-OX) PO SCH ×2 (09:53→20:49)
[2019-05-26] MEDS: NICOTINE 14 MG/24 HR TRANSDERMAL TD SCH (09:53)
[2019-05-26] MEDS: FOLIC ACID 1 MG TAB PO SCH (09:53)
[2019-05-26] MEDS: TAMSULOSIN 0.4 MG CAP PO SCH (09:53)
[2019-05-26] MEDS: FERROUS SULFATE 325MG TAB PO SCH ×2 (09:53→20:50)
--- NOTE | 2019-05-26 10:05 | REP ---
REASON: Pain and swelling. TECHNIQUE: Multiple ultrasonographic images of the deep venous structures of the right upper extremity were obtained to rule out deep venous thrombosis. FINDINGS: There is no abnormal echogenic material seen in any of the visualized deep venous structures of the right upper extremity. Coaptation where applicable is appropriate throughout. Augmentation shows an expected response throughout. The technologist noted an IV at the cephalic vein site antecubital fossa and due to the artifact created by the IV evaluation of the region is difficult. IMPRESSION: Negative exam. Electronically Signed by Kade Velazquez DO 05/26/2019 11:36 A
[2019-05-26] MEDS ORDERED: SLF 3 ML SYR IV PRN (11:30)
--- NOTE | 2019-05-26 11:52 | IPNPDOC ---
Text Note Date of Service The patient was seen on 05/26/19. NOTE Subjective: No complaints this morning. asking for solid food. HH responded a ppropriately to PRBC transfusion, no octavio or hematochesia. Right arm was red so had a RUE US which was negative for any DVT. PHYSICAL EXAM: Vitals: As below General Exam: Positive: Alert, Cooperative, No Acute Distress Eye Exam: Positive: PERRLA, Conjunctiva & lids normal, EOMI; Negative: Sclera icteric ENT Exam: Positive: Atraumatic, Mucous membr. moist/pink, Pharynx Normal Neck Exam: Positive: Supple; Negative: JVD, thyromegaly Chest Exam: Positive: Diminished, Other (diffuse crackles at the bases) Heart Exam: Positive: Rate Normal, Regular Rhythm, Normal S1, Normal S2; Negative: Murmurs, Rubs Abdomen Exam: Positive: Normal bowel sounds, Soft; Negative: Tenderness, Hepatospenomegaly Extremity Exam: Negative: Clubbing, Cyanosis, Edema, right upper extremity red discoloration after blood transfusion Labs and Radiology Reviewed. Assessment and Plan: 74 year old male with PMH of COPD with chronic respiratory failure with hypoxia and hypercarbia, Chronic anemia from Feb 2019, GI bleeding felt to be due to duodenal ulcer however no recent EGD or colonoscopy, prolonged hospitalization from 04/08/19 to 05/15 19 at [facility] for suspected perforated posterior duodenal ulcer with peritonitis complicated by acute respiratory failure , copd exacerbation, sepsis, acute urinary retension now has a chronic enriquez was discharged to [facility] on 04/3019. Patient had a CBC done today and found to have an HH so was sent to the [facility] from the [place] for blood transfusion. Hb at [facility] was 6.8, fecal occult blood was positive. Because of his recent prolonged hospitalization and surgery here he was transferred here for Acute on chronic anemia and possible chronic GIB. Patient denied any black tarry stools after discharge from hospital. He denied any abdominal pain, nausea or vomiting. However as per records from [facility] patient apparently had black stools on 05/24/19 at the [place] so HH was sent which was found to be low so was sent to the ED. Patient was admitted for acute on chronic anemia and GIB possibly acute on chronic. Acute on chronic Anemia due to GIB ? cause now. Had duodenal ulcer in mar 2019 however has been on appropriate treatment so should have been healed Last received PRBC on 05/11-05/12. During the last hospitalization he has received several units when there was a slow down trending during the course of hospitalization 04/18 x2 , 04/22 x2, 05/11. 05/12 has not had any recent EGD or colonoscopy No overt bleeding noted today transfused 2 units of PRBC, monitor HH, If continues to drop will consult surgery/ GI for EGD/colonoscopy CBC in the PM. Duodenal ulcer/ peptic ulcer disease continue pantoprazole and sucralfate. patient has been on on treatment for more than 6 weeks so the ulcer should be healed by now Iron deficiency anemia on supplements Ferritin level OK. No vit B12 or folate deficiency from GIB chronic and acute on chronic felt to be from peptic ulcer disease specifically duodenal ulcer COPD with chronic respiratory failure with hypoxia and hypercarbia no exacerbation at present continue advair, spiriva, albuterol, xopenex, oxygen supplementation Hypertension with hypertensive heart disease continue home meds Diastolic CHF and moderate to severe pulmonary hypertension not in any exacerbation at present monitor for fluid overload. Lasix prn. Complex partial seizure keppra Schichophrenia, depression sertraline, olanzapine BPH with chronic urinary retension flomax, cont enriquez care. Protein calorie malnutrition albumin of 2.0, BMI of 19, bitemporal wasting. Hypothyroid synthroid Hyperlipidemia statin AAA infrarenal 3.1 cm. VS,Fishbone, I+O VS, Fishbone, I+O Laboratory Tests 05/25/19 16:13 05/26/19 04:34 Vital Signs Date Time Temp Pulse Resp B/P (MAP) Pulse Ox O2 Delivery O2 Flow Rate FiO2 05/26/19 08:00 3.0 05/26/19 08:00 97.4 79 18 111/59 (76) 95 Nasal Cannula I&O- Last 24 Hours up to 6 AM 05/26/19 06:00 Intake Total 1300 ml Output Total 5400 ml Balance -4100 ml ELIAS MORROW MD May 26, 2019 11:52
[2019-05-26] MEDS: SLF 3 ML SYR IV SCH ×2 (14:43→20:51)
[2019-05-26 18:39] LABS: HEMATOCRIT 30.8 % (42.0-52.0); HEMOGLOBIN 9.9 g/dl (13.5-17.5); MEAN CORPUSCULAR HEMOGLOBIN 29.8 pg (27.0-33.0); MEAN CORPUSCULAR HGB CONC 32.1 g/dl (32.0-36.5); MEAN CORPUSCULAR VOLUME 92.8 fl (80.0-96.0); PLATELET COUNT, AUTOMATED 284 10^3/uL (150-450); RED BLOOD COUNT 3.32 10^6/uL (4.30-6.10); WHITE BLOOD COUNT 13.5 10^3/uL (4.0-10.0)
[2019-05-26] MEDS: ATORVASTATIN 20 MG TAB PO SCH (20:50)
[2019-05-26] MEDS: OLANZapine 5 MG TAB PO SCH (20:51)
[2019-05-27] MEDS: LEVALBUTEROL 1.25 MG/0.5 ML CONCENTRATE NEB INH SCH ×4 (00:37→19:42)
[2019-05-27] MEDS: LEVOTHYROXINE 25MCG TABLET (0.025MG) PO SCH (05:49)
[2019-05-27] MEDS: SLF 3 ML SYR IV SCH ×3 (05:49→20:06)
[2019-05-27 05:57] VITALS: BP 117/69
[2019-05-27 06:31] LABS: BASO % 0.2 % (0.0-1.0); EOS # 0.1 10^3/uL (0.0-0.5); EOS % 0.7 % (0.0-3.0); HEMATOCRIT 30.3 % (42.0-52.0); HEMOGLOBIN 9.7 g/dl (13.5-17.5); LYMPH # 0.7 10^3/uL (1.5-5.0); LYMPH % 6.2 % (24.0-44.0); MEAN CORPUSCULAR HEMOGLOBIN 29.6 pg (27.0-33.0); MEAN CORPUSCULAR VOLUME 92.4 fl (80.0-96.0); MONO # 0.6 10^3/uL (0.0-0.8); NEUTROPHILS # 9.6 10^3/uL (1.5-8.5); NEUTROPHILS % 87.3 % (36.0-66.0); PLATELET COUNT, AUTOMATED 287 10^3/uL (150-450); RED BLOOD COUNT 3.28 10^6/uL (4.30-6.10)
[2019-05-27 06:51] LABS: BLOOD UREA NITROGEN 17 MG/DL (7-18); CALCIUM LEVEL 8.3 MG/DL (8.8-10.2); CARBON DIOXIDE LEVEL 38 MEQ/L (21-32); CHLORIDE LEVEL 101 MEQ/L (98-107); CREATININE FOR GFR 0.55 MG/DL (0.70-1.30); GLOMERULAR FILTRATION RATE > 60.0 (>42); GLUCOSE, FASTING 81 MG/DL (70-100); SODIUM LEVEL 141 MEQ/L (136-145)
[2019-05-27] MEDS: ADVAIR HFA 230/21MCG INHALER INH SCH ×2 (08:06→19:42)
[2019-05-27] MEDS: TIOTROPIUM INHALER/CAPSULE (SPIRIVA) INH SCH (08:06)
[2019-05-27] MEDS: MAGNESIUM OXIDE 400 MG TAB (MAG-OX) PO SCH ×2 (08:23→20:06)
[2019-05-27] MEDS: levETIRAcetam 250MG TABLET (KEPPRA) PO SCH ×2 (08:23→20:06)
[2019-05-27] MEDS: TAMSULOSIN 0.4 MG CAP PO SCH (08:23)
[2019-05-27] MEDS: SUCRALFATE 1 GM TAB PO SCH ×4 (08:23→20:06)
[2019-05-27] MEDS: SERTRALINE HCL 50 MG TAB PO SCH (08:23)
[2019-05-27] MEDS: FOLIC ACID 1 MG TAB PO SCH (08:24)
[2019-05-27] MEDS: PANTOPRAZOLE 40MG INJ (PROTONIX) (C9113) IV SCH ×2 (08:24→20:05)
[2019-05-27] MEDS: NICOTINE 14 MG/24 HR TRANSDERMAL TD SCH (08:24)
[2019-05-27] MEDS: FERROUS SULFATE 325MG TAB PO SCH ×2 (08:24→20:06)
[2019-05-27 14:00] VITALS: BP 121/68
--- NOTE | 2019-05-27 14:58 | IPNPDOC ---
Text Note Date of Service The patient was seen on 05/27/19. NOTE Subjective: No acute events. Pt denies any chest pain, palpitations. Patient continues to have shortness of breath. Objective:VITAL SIGNS: Please see below. GENERAL: awake, alert, NAD HEENT: NCAT, anicteric sclera, PERRLA NECK: supple, no JVD CARDIOVASCULAR EXAMINATION: NS1S2 RESPIRATORY EXAMINATION: CTA b/l, no wheezes/rales/rhonchi ABDOMINAL EXAMINATION: positive bowel sounds x 4, NT EXTREMITIES: no cyanosis, clubbing, edema SKIN: warm, no rashes. NEUROLOGICAL EXAMINATION: AAO x 3, no motor/sensory deficits PSYCHIATRIC EXAMINATION: calm, normal affect Assessment and plan: Patient is 74 years old male with past medical history of COPD on oxygen 2 L at home, chronic anemia, history of GI bleed due to duodenal ulcer presented hospital with acute anemia secondary to acute GI bleed Acute on chronic anemia Secondary to GI bleed Patient has a history of duodenal ulcer in March 2019 Patient received blood transfusion. Hemoglobin stable H&H every 6 hours Patient will need colonoscopy and EGD in the outpatient settings Duodenal ulcer/ peptic ulcer disease continue pantoprazole and sucralfate. Iron deficiency anemia Most likely secondary to GI bleed Continue iron supplementation B12 and folate within normal limit COPD Not in acute exacerbation Hypertension Blood pressures under control Diastolic CHF Not in acute exacerbation Continue home meds Complex partial seizure keppra Schichophrenia, depression sertraline, olanzapine BPH with chronic urinary retention flomax, cont enriquez care. Protein calorie malnutrition albumin of 2.0, BMI of 19, bitemporal wasting. Hypothyroid synthroid Hyperlipidemia statin AAA infrarenal 3.1 cm. VS,Fishbone, I+O VS, Fishbone, I+O Laboratory Tests 05/26/19 18:19 05/27/19 06:13 Vital Signs Date Time Temp Pulse Resp B/P (MAP) Pulse Ox O2 Delivery O2 Flow Rate FiO2 05/27/19 09:00 2.0 05/27/19 05:57 97.1 82 20 117/69 (85) 94 Nasal Cannula I&O- Last 24 Hours up to 6 AM 05/27/19 06:00 Intake Total 1800 ml Output Total 2700 ml Balance -900 ml TRUDI ADAMS DO May 27, 2019 14:58
[2019-05-27] MEDS: ACETAMINOPHEN TAB 650MG DOSE (2X325MG) PO PRN ×2 (14:59→20:07)
[2019-05-27 15:19] LABS: HEMATOCRIT 27.9 % (42.0-52.0)
[2019-05-27 16:19] VITALS: BP 134/72
--- NOTE | 2019-05-27 17:56 | REPVR ---
PROCEDURE INFORMATION: Exam: CT Head Without Contrast Exam date and time: 05/27/2019 5:24 PM Age: 74 years old Clinical indication: Injury or trauma; Fall; Initial encounter; Blunt trauma (contusions or hematomas); Additional info: Mechanical fall TECHNIQUE: Imaging protocol: Computed tomography of the head without contrast. Axial and coronal reformatted images were created and reviewed. Radiation optimization: All CT scans at this facility use at least one of these dose optimization techniques: automated exposure control; mA and/or kV adjustment per patient size (includes targeted exams where dose is matched to clinical indication); or iterative reconstruction. COMPARISON: CT Head without contrast 04/27/2019 9:55 AM FINDINGS: Brain: Patchy areas of hypoattenuation in the periventricular and subcortical white matter, consistent with chronic small vessel ischemic disease. No CT evidence of acute intracranial hemorrhage or acute territorial infarction. No significant mass effect or midline shift. Basal cisterns patent. Ventricles: Prominence of the cortical sulci, cisterns and ventricular system, consistent with cerebral and cerebellar volume loss. Bones/joints: No acute osseous abnormality. Sinuses: Grossly unremarkable. Mastoid air cells: Partial opacification of the bilateral mastoid air cells. Soft tissues: Grossly unremarkable. Vasculature: Calcific atherosclerotic disease in the cavernous internal carotid arteries, as well as the vertebro-basilar system. IMPRESSION: 1. No CT evidence of acute intracranial pathology. 2. Additional findings, as above. Electronically signed by: Eric Strange On 05/27/2019 17:55:33 PM
[2019-05-27] MEDS: OLANZapine 5 MG TAB PO SCH (20:06)
[2019-05-27] MEDS: ATORVASTATIN 20 MG TAB PO SCH (20:06)
[2019-05-27 20:21] VITALS: BP 130/69
[2019-05-27 21:34] LABS: HEMATOCRIT 26.6 % (42.0-52.0); HEMOGLOBIN 8.5 g/dl (13.5-17.5)
[2019-05-27] MEDS: NITROFURANTOIN (MACROBID) 100 MG CAP PO SCH (21:52)
[2019-05-28] MEDS: LEVALBUTEROL 1.25 MG/0.5 ML CONCENTRATE NEB INH SCH ×4 (00:31→19:39)
[2019-05-28 03:05] LABS: HEMATOCRIT 27.3 % (42.0-52.0); HEMOGLOBIN 8.6 g/dl (13.5-17.5)
[2019-05-28 06:00] VITALS: BP 122/69
[2019-05-28] MEDS: LEVOTHYROXINE 25MCG TABLET (0.025MG) PO SCH (06:08)
[2019-05-28] MEDS: SLF 3 ML SYR IV SCH ×3 (06:10→20:26)
[2019-05-28 06:22] LABS: BASO % 0.1 % (0.0-1.0); EOS # 0.1 10^3/uL (0.0-0.5); EOS % 0.7 % (0.0-3.0); HEMATOCRIT 28.6 % (42.0-52.0); HEMOGLOBIN 8.9 g/dl (13.5-17.5); LYMPH # 0.6 10^3/uL (1.5-5.0); LYMPH % 5.5 % (24.0-44.0); MEAN CORPUSCULAR HEMOGLOBIN 29.4 pg (27.0-33.0); MEAN CORPUSCULAR HGB CONC 31.1 g/dl (32.0-36.5); MEAN CORPUSCULAR VOLUME 94.4 fl (80.0-96.0); MONO # 0.7 10^3/uL (0.0-0.8); MONO % 6.4 % (0.0-5.0); NEUTROPHILS % 86.5 % (36.0-66.0); PLATELET COUNT, AUTOMATED 266 10^3/uL (150-450); RED BLOOD COUNT 3.03 10^6/uL (4.30-6.10); WHITE BLOOD COUNT 10.4 10^3/uL (4.0-10.0)
[2019-05-28 06:52] LABS: BLOOD UREA NITROGEN 16 MG/DL (7-18); CALCIUM LEVEL 8.1 MG/DL (8.8-10.2); CARBON DIOXIDE LEVEL 36 MEQ/L (21-32); CHLORIDE LEVEL 105 MEQ/L (98-107); CREATININE FOR GFR 0.61 MG/DL (0.70-1.30); GLOMERULAR FILTRATION RATE > 60.0 (>42); GLUCOSE, FASTING 83 MG/DL (70-100); POTASSIUM SERUM 4.1 MEQ/L (3.5-5.1); SODIUM LEVEL 144 MEQ/L (136-145)
[2019-05-28] MEDS: ADVAIR HFA 230/21MCG INHALER INH SCH ×2 (07:30→19:38)
[2019-05-28] MEDS: TIOTROPIUM INHALER/CAPSULE (SPIRIVA) INH SCH (07:30)
[2019-05-28] MEDS: SERTRALINE HCL 50 MG TAB PO SCH (08:00)
[2019-05-28] MEDS: MAGNESIUM OXIDE 400 MG TAB (MAG-OX) PO SCH ×2 (08:01→20:25)
[2019-05-28] MEDS: FOLIC ACID 1 MG TAB PO SCH (08:01)
[2019-05-28] MEDS: SUCRALFATE 1 GM TAB PO SCH ×4 (08:01→20:25)
[2019-05-28] MEDS: NITROFURANTOIN (MACROBID) 100 MG CAP PO SCH ×2 (08:01→20:25)
[2019-05-28] MEDS: levETIRAcetam 250MG TABLET (KEPPRA) PO SCH ×2 (08:02→20:25)
[2019-05-28] MEDS: FERROUS SULFATE 325MG TAB PO SCH ×2 (08:02→20:25)
[2019-05-28] MEDS: TAMSULOSIN 0.4 MG CAP PO SCH (08:02)
[2019-05-28] MEDS: PANTOPRAZOLE 40MG INJ (PROTONIX) (C9113) IV SCH ×2 (08:03→20:26)
[2019-05-28] MEDS: NICOTINE 14 MG/24 HR TRANSDERMAL TD SCH ×2 (08:03→08:07)
[2019-05-28 08:47] LABS: HEMATOCRIT 28.8 % (42.0-52.0); HEMOGLOBIN 9.1 g/dl (13.5-17.5)
--- NOTE | 2019-05-28 11:35 | IPNPDOC ---
Text Note Date of Service The patient was seen on 05/28/19. NOTE Subjective: No acute events. Patient has a good appetite Pt denies any chest pain, palpitations. Shortness of breath markedly improved Objective:VITAL SIGNS: Please see below. GENERAL: awake, alert, NAD HEENT: NCAT, anicteric sclera, PERRLA NECK: supple, no JVD CARDIOVASCULAR EXAMINATION: NS1S2 RESPIRATORY EXAMINATION: CTA b/l, no wheezes/rales/rhonchi ABDOMINAL EXAMINATION: positive bowel sounds x 4, NT EXTREMITIES: no cyanosis, clubbing, edema SKIN: warm, no rashes. NEUROLOGICAL EXAMINATION: AAO x 3, no motor/sensory deficits PSYCHIATRIC EXAMINATION: calm, normal affect Assessment and plan: Patient is 74 years old male with past medical history of COPD on oxygen 2 L at home, chronic anemia, history of GI bleed due to duodenal ulcer presented hospital with acute anemia secondary to acute GI bleed Acute on chronic anemia Secondary to GI bleed Patient has a history of duodenal ulcer in March 2019 Patient received blood transfusion. Hemoglobin stable H&H every 6 hours Patient will need colonoscopy and EGD in the outpatient settings Duodenal ulcer/ peptic ulcer disease continue pantoprazole and sucralfate. Iron deficiency anemia Most likely secondary to GI bleed Continue iron supplementation B12 and folate within normal limit COPD Not in acute exacerbation Hypertension Blood pressures under control Diastolic CHF Not in acute exacerbation Continue home meds Complex partial seizure keppra Schichophrenia, depression sertraline, olanzapine BPH with chronic urinary retention flomax, cont enriquez care. Protein calorie malnutrition albumin of 2.0, BMI of 19, bitemporal wasting. Hypothyroid synthroid Hyperlipidemia statin AAA infrarenal 3.1 cm. Follow-up with PCP in the outpatient settings Deconditioning PT OT evaluation VS,Fishbone, I+O VS, Fishbone, I+O Laboratory Tests 05/27/19 15:07 05/27/19 21:07 05/28/19 02:57 05/28/19 06:11 05/28/19 08:36 Vital Signs Date Time Temp Pulse Resp B/P (MAP) Pulse Ox O2 Delivery O2 Flow Rate FiO2 05/28/19 07:32 2.0 05/28/19 06:00 97.0 83 20 122/69 (86) 94 Nasal Cannula I&O- Last 24 Hours up to 6 AM 05/28/19 05:59 Intake Total 810 ml Output Total 1550 ml Balance -740 ml TRUDI ADAMS DO May 28, 2019 11:35
[2019-05-28 14:00] VITALS: BP 100/56
[2019-05-28 14:56] LABS: HEMATOCRIT 28.5 % (42.0-52.0); HEMOGLOBIN 8.8 g/dl (13.5-17.5)
[2019-05-28] MEDS: OLANZapine 5 MG TAB PO SCH (20:25)
[2019-05-28] MEDS: ATORVASTATIN 20 MG TAB PO SCH (20:25)
[2019-05-28] MEDS: ACETAMINOPHEN TAB 650MG DOSE (2X325MG) PO PRN (20:26)
[2019-05-28 20:36] VITALS: BP 122/61
[2019-05-28 20:58] LABS: HEMATOCRIT 26.8 % (42.0-52.0); HEMOGLOBIN 8.2 g/dl (13.5-17.5)
[2019-05-29] MEDS: LEVALBUTEROL 1.25 MG/0.5 ML CONCENTRATE NEB INH SCH ×4 (00:18→20:20)
[2019-05-29 05:33] VITALS: BP 121/60
[2019-05-29] MEDS: LEVOTHYROXINE 25MCG TABLET (0.025MG) PO SCH (05:58)
[2019-05-29] MEDS: SLF 3 ML SYR IV SCH ×3 (05:58→20:26)
[2019-05-29 07:26] LABS: BASO % 0.2 % (0.0-1.0); EOS # 0.1 10^3/uL (0.0-0.5); EOS % 0.5 % (0.0-3.0); HEMATOCRIT 30.6 % (42.0-52.0); HEMOGLOBIN 9.3 g/dl (13.5-17.5); LYMPH # 0.7 10^3/uL (1.5-5.0); MEAN CORPUSCULAR HEMOGLOBIN 29.1 pg (27.0-33.0); MEAN CORPUSCULAR HGB CONC 30.4 g/dl (32.0-36.5); MEAN CORPUSCULAR VOLUME 95.6 fl (80.0-96.0); MONO # 0.5 10^3/uL (0.0-0.8); NEUTROPHILS # 8.3 10^3/uL (1.5-8.5); NEUTROPHILS % 86.6 % (36.0-66.0); PLATELET COUNT, AUTOMATED 306 10^3/uL (150-450); WHITE BLOOD COUNT 9.6 10^3/uL (4.0-10.0)
[2019-05-29] MEDS: TIOTROPIUM INHALER/CAPSULE (SPIRIVA) INH SCH (07:47)
[2019-05-29] MEDS: ADVAIR HFA 230/21MCG INHALER INH SCH ×2 (07:47→20:20)
[2019-05-29 07:55] LABS: BLOOD UREA NITROGEN 16 MG/DL (7-18); CALCIUM LEVEL 8.6 MG/DL (8.8-10.2); CARBON DIOXIDE LEVEL 35 MEQ/L (21-32); CHLORIDE LEVEL 103 MEQ/L (98-107); CREATININE FOR GFR 0.57 MG/DL (0.70-1.30); GLOMERULAR FILTRATION RATE > 60.0 (>42); GLUCOSE, FASTING 84 MG/DL (70-100); POTASSIUM SERUM 4.1 MEQ/L (3.5-5.1); SODIUM LEVEL 141 MEQ/L (136-145)
[2019-05-29] MEDS: SERTRALINE HCL 50 MG TAB PO SCH (08:24)
[2019-05-29] MEDS: TAMSULOSIN 0.4 MG CAP PO SCH (08:24)
[2019-05-29] MEDS: FOLIC ACID 1 MG TAB PO SCH (08:24)
[2019-05-29] MEDS: SUCRALFATE 1 GM TAB PO SCH ×4 (08:24→20:25)
[2019-05-29] MEDS: levETIRAcetam 250MG TABLET (KEPPRA) PO SCH ×2 (08:25→20:25)
[2019-05-29] MEDS: NITROFURANTOIN (MACROBID) 100 MG CAP PO SCH ×2 (08:25→20:25)
[2019-05-29] MEDS: FERROUS SULFATE 325MG TAB PO SCH ×2 (08:25→20:25)
[2019-05-29] MEDS: MAGNESIUM OXIDE 400 MG TAB (MAG-OX) PO SCH ×2 (08:26→20:25)
[2019-05-29] MEDS: NICOTINE 14 MG/24 HR TRANSDERMAL TD SCH (08:28)
[2019-05-29] MEDS: PANTOPRAZOLE 40MG INJ (PROTONIX) (C9113) IV SCH (08:45)
[2019-05-29 14:00] VITALS: BP 130/70
[2019-05-29] MEDS: OLANZapine 5 MG TAB PO SCH (20:25)
[2019-05-29] MEDS: ATORVASTATIN 20 MG TAB PO SCH (20:25)
[2019-05-29] MEDS: PANTOPRAZOLE 40MG TAB (PROTONIX) PO SCH (20:25)
[2019-05-29] MEDS: ACETAMINOPHEN TAB 650MG DOSE (2X325MG) PO PRN (20:26)
[2019-05-29 22:00] VITALS: BP 125/67
[2019-05-30] MEDS: LEVALBUTEROL 1.25 MG/0.5 ML CONCENTRATE NEB INH SCH ×4 (01:31→20:00)
[2019-05-30 06:00] VITALS: BP 136/65
[2019-05-30] MEDS: LEVOTHYROXINE 25MCG TABLET (0.025MG) PO SCH (06:18)
[2019-05-30] MEDS: SLF 3 ML SYR IV SCH ×3 (06:19→20:03)
[2019-05-30 06:27] LABS: BASO % 0.2 % (0.0-1.0); EOS # 0.1 10^3/uL (0.0-0.5); EOS % 1.2 % (0.0-3.0); HEMATOCRIT 27.1 % (42.0-52.0); HEMOGLOBIN 8.3 g/dl (13.5-17.5); LYMPH # 0.7 10^3/uL (1.5-5.0); LYMPH % 7.8 % (24.0-44.0); MEAN CORPUSCULAR HEMOGLOBIN 29.5 pg (27.0-33.0); MEAN CORPUSCULAR HGB CONC 30.6 g/dl (32.0-36.5); MEAN CORPUSCULAR VOLUME 96.4 fl (80.0-96.0); MONO # 0.6 10^3/uL (0.0-0.8); MONO % 6.9 % (0.0-5.0); NEUTROPHILS # 7.6 10^3/uL (1.5-8.5); NEUTROPHILS % 83.2 % (36.0-66.0); PLATELET COUNT, AUTOMATED 304 10^3/uL (150-450); RED BLOOD COUNT 2.81 10^6/uL (4.30-6.10); WHITE BLOOD COUNT 9.2 10^3/uL (4.0-10.0)
[2019-05-30 06:51] LABS: BLOOD UREA NITROGEN 17 MG/DL (7-18); CALCIUM LEVEL 8.4 MG/DL (8.8-10.2); CARBON DIOXIDE LEVEL 37 MEQ/L (21-32); CHLORIDE LEVEL 105 MEQ/L (98-107); CREATININE FOR GFR 0.52 MG/DL (0.70-1.30); GLOMERULAR FILTRATION RATE > 60.0 (>42); GLUCOSE, FASTING 84 MG/DL (70-100); POTASSIUM SERUM 4.4 MEQ/L (3.5-5.1); SODIUM LEVEL 143 MEQ/L (136-145)
[2019-05-30] MEDS: ADVAIR HFA 230/21MCG INHALER INH SCH ×2 (07:55→21:05)
[2019-05-30] MEDS: TIOTROPIUM INHALER/CAPSULE (SPIRIVA) INH SCH (07:55)
[2019-05-30] MEDS: FERROUS SULFATE 325MG TAB PO SCH ×2 (08:15→20:02)
[2019-05-30] MEDS: NICOTINE 14 MG/24 HR TRANSDERMAL TD SCH (08:15)
[2019-05-30] MEDS: PANTOPRAZOLE 40MG TAB (PROTONIX) PO SCH ×2 (08:15→20:02)
[2019-05-30] MEDS: FOLIC ACID 1 MG TAB PO SCH (08:15)
[2019-05-30] MEDS: SERTRALINE HCL 50 MG TAB PO SCH (08:15)
[2019-05-30] MEDS: SUCRALFATE 1 GM TAB PO SCH ×4 (08:15→20:02)
[2019-05-30] MEDS: levETIRAcetam 250MG TABLET (KEPPRA) PO SCH ×2 (08:15→20:02)
[2019-05-30] MEDS: TAMSULOSIN 0.4 MG CAP PO SCH (08:15)
[2019-05-30] MEDS: MAGNESIUM OXIDE 400 MG TAB (MAG-OX) PO SCH ×2 (08:15→20:03)
[2019-05-30] MEDS: NITROFURANTOIN (MACROBID) 100 MG CAP PO SCH ×2 (08:16→20:02)
[2019-05-30] MEDS: ATORVASTATIN 20 MG TAB PO SCH (20:02)
[2019-05-30] MEDS: OLANZapine 5 MG TAB PO SCH (20:02)
[2019-05-30] MEDS: ACETAMINOPHEN TAB 650MG DOSE (2X325MG) PO PRN (20:03)
[2019-05-30 22:00] VITALS: BP 132/65
[2019-05-31] MEDS: LEVALBUTEROL 1.25 MG/0.5 ML CONCENTRATE NEB INH SCH ×2 (00:44→08:00)
[2019-05-31] MEDS: LEVOTHYROXINE 25MCG TABLET (0.025MG) PO SCH (05:31)
[2019-05-31] MEDS: SLF 3 ML SYR IV SCH (05:32)
[2019-05-31 06:00] VITALS: BP 117/77
[2019-05-31 06:31] LABS: BASO # 0.1 10^3/uL (0.0-0.2); BASO % 0.5 % (0.0-1.0); EOS # 0.1 10^3/uL (0.0-0.5); EOS % 1.1 % (0.0-3.0); HEMATOCRIT 27.5 % (42.0-52.0); HEMOGLOBIN 8.5 g/dl (13.5-17.5); LYMPH # 0.8 10^3/uL (1.5-5.0); LYMPH % 8.2 % (24.0-44.0); MEAN CORPUSCULAR HEMOGLOBIN 29.8 pg (27.0-33.0); MEAN CORPUSCULAR HGB CONC 30.9 g/dl (32.0-36.5); MEAN CORPUSCULAR VOLUME 96.5 fl (80.0-96.0); MONO # 0.6 10^3/uL (0.0-0.8); MONO % 6.4 % (0.0-5.0); NEUTROPHILS # 8.3 10^3/uL (1.5-8.5); NEUTROPHILS % 83.2 % (36.0-66.0); PLATELET COUNT, AUTOMATED 299 10^3/uL (150-450); RED BLOOD COUNT 2.85 10^6/uL (4.30-6.10)
[2019-05-31 06:46] LABS: BLOOD UREA NITROGEN 17 MG/DL (7-18); CALCIUM LEVEL 8.4 MG/DL (8.8-10.2); CARBON DIOXIDE LEVEL 35 MEQ/L (21-32); CHLORIDE LEVEL 104 MEQ/L (98-107); CREATININE FOR GFR 0.52 MG/DL (0.70-1.30); GLOMERULAR FILTRATION RATE > 60.0 (>42); GLUCOSE, FASTING 86 MG/DL (70-100); POTASSIUM SERUM 4.1 MEQ/L (3.5-5.1); SODIUM LEVEL 141 MEQ/L (136-145)
[2019-05-31] MEDS: TIOTROPIUM INHALER/CAPSULE (SPIRIVA) INH SCH (08:00)
[2019-05-31] MEDS: ADVAIR HFA 230/21MCG INHALER INH SCH (08:01)
[2019-05-31] MEDS: MAGNESIUM OXIDE 400 MG TAB (MAG-OX) PO SCH (08:05)
[2019-05-31] MEDS: FOLIC ACID 1 MG TAB PO SCH (08:05)
[2019-05-31] MEDS: NITROFURANTOIN (MACROBID) 100 MG CAP PO SCH (08:05)
[2019-05-31] MEDS: FERROUS SULFATE 325MG TAB PO SCH (08:05)
[2019-05-31] MEDS: levETIRAcetam 250MG TABLET (KEPPRA) PO SCH (08:06)
[2019-05-31] MEDS: NICOTINE 14 MG/24 HR TRANSDERMAL TD SCH (09:00)
[2019-05-31] MEDS: TAMSULOSIN 0.4 MG CAP PO SCH (09:27)
[2019-05-31] MEDS: SUCRALFATE 1 GM TAB PO SCH (09:27)
[2019-05-31] MEDS: PANTOPRAZOLE 40MG TAB (PROTONIX) PO SCH (09:27)
[2019-05-31] MEDS: SERTRALINE HCL 50 MG TAB PO SCH (09:27)
--- NOTE | 2019-05-31 17:54 | DS.PDOC ---
Discharge Summary General Date of Admission May 25, 2019 at 15:18 Date of Discharge 05/31/19 Discharge Summary PROCEDURES PERFORMED DURING STAY: [None]. ADMITTING DIAGNOSES: Acute on chronic Anemia Duodenal ulcer/ peptic ulcer disease COPD with chronic respiratory failure with hypoxia and hypercarbia Iron deficiency anemia Hypertension with hypertensive heart disease Diastolic CHF and moderate to severe pulmonary hypertension Complex partial seizure BPH with chronic urinary retention Schizophrenia, depression Protein calorie malnutrition Hypothyroid AAA Hyperlipidemia DISCHARGE DIAGNOSES: Acute on chronic Anemia Duodenal ulcer/ peptic ulcer disease COPD with chronic respiratory failure with hypoxia and hypercarbia Iron deficiency anemia Hypertension with hypertensive heart disease Diastolic CHF and moderate to severe pulmonary hypertension Complex partial seizure BPH with chronic urinary retention Schizophrenia, depression Protein calorie malnutrition Hypothyroid AAA Hyperlipidemia COMPLICATIONS/CHIEF COMPLAINT: Gi Bleed. HISTORY OF PRESENT ILLNESS: 74 year old male with PMH of COPD with chronic respiratory failure with hypoxia and hypercarbia, Chronic anemia from Feb 2019, GI bleeding felt to be due to duodenal ulcer however no recent EGD or colonoscopy, prolonged hospitalization from 04/08/19 to 05/15 19 at [facility] for suspected perforated posterior duodenal ulcer with peritonitis complicated by acute respiratory failure , copd exacerbation, sepsis, acute urinary retension now has a chronic enriquez was discharged to [facility] on 04/3019. Patient had a CBC done today and found to have an HH so was sent to the [place] [facility] from the [place] for blood transfusion. Hb at [facility] ED was 6.8, fecal occult blood was positive. Because of his recent prolonged hospitalization and surgery here he was transferred here for Acute on chronic anemia and possible chronic GIB. Patient denied any black tarry stools after discharge from hospital. He denied any abdominal pain, nausea or vomiting. However as per records from [facility] patient apparently had black stools on 05/24/19 at the [place] so HH was sent which was found to be low so was sent to the ED. Patient was admitted for acute on chronic anemia and GIB possibly acute on chronic. HOSPITAL COURSE: During hospital stay Acute on chronic anemia Secondary to GI bleed Patient has a history of duodenal ulcer in March 2019 Patient received blood transfusion. Hemoglobin stable Patient will need colonoscopy and EGD in the outpatient settings Duodenal ulcer/ peptic ulcer disease continue pantoprazole and sucralfate. Iron deficiency anemia Most likely secondary to GI bleed Continue iron supplementation B12 and folate within normal limit COPD Not in acute exacerbation Hypertension Blood pressures under control Diastolic CHF Not in acute exacerbation Continue home meds Complex partial seizure keppra Schichophrenia, depression sertraline, olanzapine BPH with chronic urinary retention flomax, cont enriquez care. Protein calorie malnutrition albumin of 2.0, BMI of 19, bitemporal wasting. Hypothyroid synthroid Hyperlipidemia statin AAA infrarenal 3.1 cm. Follow-up with PCP in the outpatient settings Deconditioning PT OT evaluation DISCHARGE MEDICATIONS: Please see below. ALLERGIES: Please see below. PHYSICAL EXAMINATION ON DISCHARGE: Objective:VITAL SIGNS: Please see below. GENERAL: awake, alert, NAD HEENT: NCAT, anicteric sclera, PERRLA NECK: supple, no JVD CARDIOVASCULAR EXAMINATION: NS1S2 RESPIRATORY EXAMINATION: CTA b/l, no wheezes/rales/rhonchi ABDOMINAL EXAMINATION: positive bowel sounds x 4, NT EXTREMITIES: no cyanosis, clubbing, edema SKIN: warm, no rashes. NEUROLOGICAL EXAMINATION: AAO x 3, no motor/sensory deficits PSYCHIATRIC EXAMINATION: calm, normal affect LABORATORY DATA: Please see below. IMAGING: TECHNIQUE: Imaging protocol: Computed tomography of the head without contrast. Axial and coronal reformatted images were created and reviewed. Radiation optimization: All CT scans at this facility use at least one of these dose optimization techniques: automated exposure control; mA and/or kV adjustment per patient size (includes targeted exams where dose is matched to clinical indication); or iterative reconstruction. COMPARISON: CT Head without contrast 04/27/2019 9:55 AM FINDINGS: Brain: Patchy areas of hypoattenuation in the periventricular and subcortical white matter, consistent with chronic small vessel ischemic disease. No CT evidence of acute intracranial hemorrhage or acute territorial infarction. No significant mass effect or midline shift. Basal cisterns patent. Ventricles: Prominence of the cortical sulci, cisterns and ventricular system, consistent with cerebral and cerebellar volume loss. Bones/joints: No acute osseous abnormality. Sinuses: Grossly unremarkable. Mastoid air cells: Partial opacification of the bilateral mastoid air cells. Soft tissues: Grossly unremarkable. Vasculature: Calcific atherosclerotic disease in the cavernous internal carotid arteries, as well as the vertebro-basilar system. IMPRESSION: 1. No CT evidence of acute intracranial pathology. 2. Additional findings, as above. Electronically signed by: Eric Ledesma On 05/27/2019 17:55:33 PM DD: ERIC LEDESMA MD 05/27/19 [id number] DT: CAIO 05/27/191754 DS: SIM 05/27/191754 [~ rep ct labl] PROGNOSIS:fair ACTIVITY: [As tolerated]. DIET:cardiac DISCHARGE PLAN: ARU DISPOSITION: 70 Xfer Other. ITEMS TO FOLLOWUP ON ON OUTPATIENT: PCP, urologist, GI. DISCHARGE CONDITION: [Stable]. TIME SPENT ON DISCHARGE: Greater than 20 minutes. Vital Signs/I&Os Vital Signs Date Time Temp Pulse Resp B/P (MAP) Pulse Ox O2 Delivery O2 Flow Rate FiO2 05/31/19 13:00 2.0 05/31/19 08:03 99 05/31/19 06:00 99.6 19 117/77 (90) 93 Nasal Cannula I&O- Last 24 Hours up to 6 AM 05/31/19 06:00 Intake Total 1160 ml Output Total 2050 ml Balance -890 ml Laboratory Data Labs 24H Laboratory Tests 2 05/31/19 06:17: Immature Granulocyte % (Auto) 0.6, Neutrophils (%) (Auto) 83.2H, Lymphocytes (%) (Auto) 8.2L, Monocytes (%) (Auto) 6.4H, Eosinophils (%) (Auto) 1.1, Basophils (%) (Auto) 0.5, Neutrophils # (Auto) 8.3, Lymphocytes # (Auto) 0.8L, Monocytes # (Auto) 0.6, Eosinophils # (Auto) 0.1, Basophils # (Auto) 0.1, Nucleated Red Blood Cells % (auto) 0.0, Anion Gap 2L, Glomerular Filtration Rate > 60.0, Calcium Level 8.4L CBC/BMP Laboratory Tests 05/31/19 06:17 Microbiology Microbiology 05/27/19 Urine Culture - Final, Complete Escherichia Coli Discharge Medications Scheduled Atorvastatin Calcium (Atorvastatin Calcium) 20 Mg Tab, 20 MG PO QHS, (Reported) Ferrous Sulfate (Ferrous Sulfate) 325 Mg Tablet, 325 MG PO BID, (Reported) Fluticasone Propion/Salmeterol (Fluticasone-Salmeterol 250-50) 1 Each Blst.w.dev, 1 PUFF PO BID, (Reported) Folic Acid (Folic Acid) 1 Mg Tablet, 1 MG PO DAILY, (Reported) Levalbuterol HCl (Levalbuterol HCl) 1.25 Mg/3 Ml Vial.neb, 1.25 MG INH Q4H, (Reported) Levetiracetam (Levetiracetam) 250 Mg Tablet, 250 MG PO BID, (Reported) Levothyroxine Sodium (Levothyroxine Sodium) 25 Mcg Tablet, 25 MCG PO QAM, (Reported) Magnesium Oxide (Magnesium Oxide) 400 Mg Tablet, 400 MG PO BID, (Reported) Multivit,Calc,Mins/Iron/Folic (Thera-Tabs M Caplet) 1 Each Tablet, 1 TAB PO DAILY, (Reported) Nicotine (Nicotine Patch) 14 Mg Patch.td24, 14 MG TD DAILY, (Reported) LEFT ARM Olanzapine (Olanzapine) 15 Mg Tablet, 15 MG PO QHS, (Reported) Pantoprazole Sodium (Pantoprazole Sodium) 40 Mg Tablet.dr, 40 MG PO BID, (Reported) Sertraline Hcl (Sertraline HCl) 50 Mg Tablet, 50 MG PO DAILY, (Reported) Sucralfate (Sucralfate) 1 Gm Tablet, 1 GM PO ACHS, (Reported) Tamsulosin HCl (Flomax) 0.4 Mg Capsule, 0.4 MG PO DAILY, (Reported) Tiotropium [place] (Spiriva) 18 Mcg Cap.w.dev, 1 CAP INH DAILY, (Reported) Scheduled PRN Albuterol Sulfate (Ventolin Hfa) 18 Gm Hfa.aer.ad, 2 PUFF INH Q4H PRN for wheezing, (Reported) Bisacodyl (Dulcolax) 10 Mg Supp.rect, 10 MG [place] DAILY PRN for CONSTIPATION, (Reported) Magnesium Hydroxide (Milk of Magnesia) 400 Mg/5 Ml Oral.susp, 30 ML PO DAILY PRN for CONSTIPATION, (Reported) Allergies Coded Allergies: No Known Allergies (Unverified , 10/31/18) TRUDI ADAMS DO May 31, 2019 17:54
== END 2019-05-31 13:01 | DRG 378 ==
LOC: M PCU 15:18 → M MS5PR 05-26 13:00
PROVIDERS: ADMIT Internal Medicine; ATTEND Internal Medicine
PROC: 30233N1 Transfusion of Nonautologous Red Blood Cells into Peripheral Vein, Percutaneous Approach (ICD-10-PCS; principal; 2019-05-25)
DX: K92.2 Gastrointestinal hemorrhage, unspecified (principal); D62 Acute posthemorrhagic anemia; I50.32 Chronic diastolic (congestive) heart failure; J96.11 Chronic respiratory failure with hypoxia; J96.12 Chronic respiratory failure with hypercapnia; G40.209 Localization-related (focal) (partial) symptomatic epilepsy and epileptic syndromes with complex partial seizures, not intractable, without status epilepticus; E46 Unspecified protein-calorie malnutrition; J44.9 Chronic obstructive pulmonary disease, unspecified; F20.9 Schizophrenia, unspecified; Z66 Do not resuscitate; E78.5 Hyperlipidemia, unspecified; F32.9 Major depressive disorder, single episode, unspecified; K26.9 Duodenal ulcer, unspecified as acute or chronic, without hemorrhage or perforation; I48.0 Paroxysmal atrial fibrillation; D50.9 Iron deficiency anemia, unspecified; I11.0 Hypertensive heart disease with heart failure; I27.20 Pulmonary hypertension, unspecified; N40.1 Benign prostatic hyperplasia with lower urinary tract symptoms; R33.9 Retention of urine, unspecified; E03.9 Hypothyroidism, unspecified; I71.4 Abdominal aortic aneurysm, without rupture; Z87.891 Personal history of nicotine dependence; Z79.899 Other long term (current) drug therapy; Z99.81 Dependence on supplemental oxygen

== ENCOUNTER 2019-08-24 21:52 | Inpatient (IN) | payer MEDICARE ==
[~2019-08-24] VITALS: Ht 167.6 cm; Wt 58.0 kg
[~2019-08-24 21:52] MED LIST changes: +DULC10SU2 PR; +GLUC1LIQ7 PO; +LEVA1.2519 INH; +LEVE250T5 PO; +LEVO25TA5 PO; +MAGN400T2 PO; +MILKSUS3 PO; +NICO14DI6 TD; +SUCR1TAB56 PO; +THERTAB68 PO
[2019-08-24] MEDS: METOPROLOL 5 MG/5 ML VIAL IV SCH ×3 (22:40→23:30)
[2019-08-24 22:44] LABS: BASO % 0.1 % (0.0-1.0); EOS % 0.1 % (0.0-3.0); HEMATOCRIT 27.6 % (42.0-52.0); HEMOGLOBIN 8.5 g/dl (13.5-17.5); LYMPH # 0.8 10^3/uL (1.5-5.0); LYMPH % 8.3 % (24.0-44.0); MEAN CORPUSCULAR HEMOGLOBIN 29.4 pg (27.0-33.0); MEAN CORPUSCULAR HGB CONC 30.8 g/dl (32.0-36.5); MEAN CORPUSCULAR VOLUME 95.5 fl (80.0-96.0); MONO # 0.8 10^3/uL (0.0-0.8); MONO % 7.8 % (0.0-5.0); NEUTROPHILS # 8.1 10^3/uL (1.5-8.5); NEUTROPHILS % 82.7 % (36.0-66.0); PLATELET COUNT, AUTOMATED 296 10^3/uL (150-450); RED BLOOD COUNT 2.89 10^6/uL (4.30-6.10); WHITE BLOOD COUNT 9.8 10^3/uL (4.0-10.0)
[2019-08-24] MEDS ORDERED: FUROSEMIDE 100MG/10ML VIAL (J1940) IV ONE (23:30)
[2019-08-25] VITALS (10 sets, daily range): BP systolic 103–146; BP diastolic 55–97
[2019-08-25] MEDS ORDERED: DIGOXIN INJ 0.5 MG/2 ML AMP (J1160) IV ONE (00:15)
--- NOTE | 2019-08-25 00:53 | HPEPDOC ---
[facility] Medical History & Physical Date of Admission Aug 25, 2019 Date of Service: Aug 25, 2019 Other Provider Mayank David MD Attending Physician: CARL CARNEY MD History and Physical TIME OF SERVICE: 405 AM CHIEF COMPLAINT: Shortness of breath HISTORY OF PRESENT ILLNESS: This 74-year-old gentleman reported that he came to the hospital because he feels like his COPD is acting up. He as been feeling more short of breath for about 4 days and has been using his neb machine about 4 times per day. He came in to the hospital yesterday evening because "I panicked". In addition to feeling short of breath, he has been feeling dizzy, having palpitations and intermittent mid chest pain. He denies falling or losing consciousness having a runny nose or having any sick contacts. His chronic cough, which is usually dry, is now productive of green sputum. He has prior knowledge of his diagnosis of atrial fibrillation but was not able to nearly articulate why he is no longer taking rate control medications or anticoagulation; based on the discharge summary from May 14 of this ear, the metoprolol was discontinued because he was hypotensive and anticoagulation was discontinued because of ongoing GI bleed and anemia requiring PRBCs; he was discharged to [place] [facility], but returned in May 2019 for management of acute GI bleed. He received one dose of IV 5mg of metoprolol and digoxin 0.25 but is still tachycardic up to the 130s. REVIEW OF SYSTEMS: 12 point review of systems negative except as listed in HPI PAST MEDICAL/ SURGICAL HISTORY: COPD Chronic oxygen-dependent respiratory failure (3 L baseline) Chronic diastolic CHF Group 2 vs group 3 pulmonary hypertension Protein calorie malnutrition Paroxysmal atrial fibrillation Pulmonary nodule Chronic anemia Schizophrenia / Depression Hyperlipidemia Chronic HTN Possible complex partial seizures BPH / Urinary retention with chronic indwelling Diaz catheter Hypothyroidism AAA 3.1 cm Exp lap for peritonitis thought to be secondary to duodenal perforation that resolved spontaneously Mar 2019 Left Salter surgery Right knee surgery SOCIAL HISTORY: Former smoker Former alcoholic Lives alone Has 2 children and several grandchildren One of his daughters is healthcare proxy FAMILY HISTORY: Mother had diabetes Cancer ALLERGIES: Please see below. HOME MEDICATIONS: Please see below. PHYSICAL EXAMINATION: Vital Signs Date Time Temp Pulse Resp B/P (MAP) Pulse Ox O2 Delivery O2 Flow Rate FiO2 08/24/19 22:01 99.5 144 24 160/97 99 Nasal Cannula 2.0 GEN: Slim build/ well developed/ NAD INTEGUMENT: He doesn't have facial plethora HEENT:NCAT / lips are not cyanotic / he doesn't have pursed lip breathing / NC in place CVS: Heart rate irregularly irregular and tachycardic/ distant heart sounds LUNGS: He is not able to speak full sentences without stopping to take a breath / he is coughing / he is using accessory muscles / there is decreased respiratory expansion/ breath sounds are diminished ABDOMEN: Has a small epigastric abdominal hernia NEURO: CN 2-12 are grossly intact / speech is not dysarthric PSYCH: alert and oriented to person place and time/ able to understand and fo llow all commands LABORATORY DATA: 08/24/19 22:35 Immature Granulocyte % (Auto) 1.0, Neutrophils (%) (Auto) 82.7H, Lymphocytes (%) (Auto) 8.3L, Monocytes (%) (Auto) 7.8H, Eosinophils (%) (Auto) 0.1, Basophils (%) (Auto) 0.1, Neutrophils # (Auto) 8.1, Lymphocytes # (Auto) 0.8L, Monocytes # (Auto) 0.8, Eosinophils # (Auto) 0.0, Basophils # (Auto) 0.0, Nucleated Red Blood Cells % (auto) 0.3H, Lactic Acid Level 0.8, GB-Zup-[id number]-Type Natriuretic Peptide [id number] 08/24/19 22:50: POC Glucose (Misc Panel) 112H, POC Sodium (Misc Panel) 134L, POC Potassium (Misc Panel) 3.8, POC Chloride (Misc Panel) 88L, POC Total CO2 (Misc Panel) 36.0H, POC Blood Urea Nitrogen (Misc Panel 14, POC Ionized Calcium (Misc Panel) 4.7, POC Creatinine (Misc Panel) 0.7, POC Hematocrit (Misc Panel) 29.0L 08/24/19 22:51: POC Troponin I (Misc) 0.00 08/24/19 22:58: POC Total CO2 (Misc Panel) 41.0H, POC pH (Misc Panel) 7.319L, POC Base Excess (Misc Panel) 13.0H, POC Saturated Percent O2 (Misc) 99H, POC pO2 (Misc Panel) 145.0H, POC pCO2 (Misc Panel) 76.0*H, POC HCO3 (Misc Panel) 39.1H IMAGING: The chest x-ray shows flattening of the ribs and hyperinflation along with ground glass opacities on the right side and possible retrocardiac pneumonia, but the final read is pending. MICROBIOLOGY: 08/24/19 Blood Culture, Received Pending ASSESSMENT: Mr. Salas is a 74-year-old with a history of COPD, O2 dependent respiratory failure, diastolic CHF, pulmonary hypertension, paroxysmal atrial fibrillation, chronic anemia, schizophrenia, depression, dyslipidemia, HTN, BPH with chronic Diaz, hypothyroidism, and multiple surgeries, who will be admitted for management of rapid A. fib and acute COPD. PLAN: 1. Rapid Atrial Fibrillation Likely 2/2 acute COPD and excessive nebulizer use He doesn't appear to be in acute CHF or have an TN that could have triggered the rapid a fib. His BB was discontinued bc of low BP and his AC was discontinued bc of GI bleed and chronic anemia Last Echo was done in April 2019 with no mention of rheumatic mitral valve disease Plan: admit to PCU / telemetry / will give a second dose of digoxin 0.125mg / no AC bc of chronic anemia/ f/u serial trops, d-dimer and mag 2. Acute COPD Trigger may be viral infection or bacterial infection or pulmonary embolism ABG showed pH of 7.31 and PCO2 of 76 but he is alert therefore will hold of BIPAP for now Plan: supplemental O2 / continuous pulse oximetry / aspiration precautions / COPD diet / f/u respiratory panel w COVID, sputum cx / Dunebs Q6H, Levalbuterol Q2HP, Solumedrol now followed by Prednisone + PPI / will give Doxycycline because the patient has a (change in sputum color) will avoid Levofloxacin or Azithro bc of their QTC prolonging properties / continue Spiriva / f/u final chest x-ray report & repeat VBG in AM / [facility] Bullock / he will need a referal to [facility] for repeat PFTs and Pulmonary Rehab within 90 days of discharge which has been shown to reduce mortality 3. SIRS SIRS criteria include HR >90 / RR >20 Lactic acid <1 Plan: f/u final chest xray report and respiratory panel 4. Chronic diastolic CHF Euvolemic Plan: f/u Is and Os & daily weights 5. Chronic anemia / history of GI bleed Plan: Hold iron until infection has been ruled out, continue with Carafate 6. Schizophrenia / Depression Plan: Olanzapine, sertraline 7. Hyperlipidemia Plan: Atorvastatin 8. Chronic HTN Plan: hold BP meds bc BP is low 9. Possible complex partial seizures Plan: Keshannanra 10. BPH / Urinary retention with chronic indwelling Diaz catheter Plan: Tamsulosin DVT PROPHYLAXIS: lovenox DISPOSITION: home vs rehab after more than 2 midnights stay / PFS consult has been placed for placement & PT consult has been placed for early mobilization (he has a hx of deconditioning after hospitalizations) LATE ENTRY 505AM #Acute COPD 2/2/ Human Rhinovirus/Enterovirus Viral panel is positive Plan: c/w respiratory precautions #Sepsis 2/2 Human Rhinovirus/Enterovirus Plan: IVF / c/w abx, start IVF / acetaminophen PRN for fever #Elevated d-dimer Plan: f/u CTA to r/o PE LATE ENTRY 645AM Per phone d/w will start 150mg IV amiodarone followed by 150mg IV again if it doesnt work PLUS 200mg amiodarone PO QID / I will ask the day time team to reach out to Home Medications Scheduled Atorvastatin Calcium (Atorvastatin Calcium) 20 Mg Tab, 20 MG PO QHS Ferrous Sulfate (Ferrous Sulfate) 325 Mg Tablet, 325 MG PO DAILY Folic Acid (Folic Acid) 1 Mg Tablet, 1 MG PO DAILY Levalbuterol HCl (Levalbuterol HCl) 1.25 Mg/3 Ml Vial.neb, 1.25 MG INH Q4H Levetiracetam (Levetiracetam) 250 Mg Tablet, 250 MG PO BID Magnesium Oxide (Magnesium Oxide) 400 Mg Tablet, 400 MG PO BID Multivitamins (Thera M Plus Tablet) 1 Each Tablet, 1 TAB PO DAILY Olanzapine (Olanzapine) 15 Mg Tablet, 15 MG PO QHS Pantoprazole Sodium (Pantoprazole Sodium) 40 Mg Tablet.dr, 40 MG PO DAILY Sertraline Hcl (Sertraline HCl) 50 Mg Tablet, 50 MG PO DAILY Sucralfate (Sucralfate) 1 Gm Tablet, 1 GM PO ACHS Tamsulosin HCl (Flomax) 0.4 Mg Capsule, 0.4 MG PO DAILY Tiotropium [place] (Spiriva) 18 Mcg Cap.w.dev, 1 CAP INH DAILY Scheduled PRN Albuterol Sulfate (Ventolin Hfa) 18 Gm Hfa.aer.ad, 2 PUFF INH Q4H PRN for SHORTNESS OF BREATH Allergies Coded Allergies: No Known Allergies (Unverified , 10/31/18) A-FIB/CHADSVASC A-FIB History Current/History of A-Fib/PAF?: Yes Current PO Anticoag Therapy: No Treatment Treatment ordered: NONE Other reason anticoagulant not: chronic anemia CARL CARNEY MD Aug 25, 2019 00:53
[2019-08-25] MEDS ORDERED: methylPREDNISolone INJ 125 MG/2 ML VIAL (J2930) IV STA (00:56)
[2019-08-25] MEDS ORDERED: ACETAMINOPHEN TAB 650MG DOSE (2X325MG) PO PRN (01:00)
[2019-08-25] MEDS ORDERED: MOM 30ML SUSPENSION UDC PO PRN (01:00)
[2019-08-25] MEDS ORDERED: MAALOX 30 ML SUSP *UDC PO PRN (01:00)
[2019-08-25] MEDS ORDERED: VITMTA PO (01:09)
[2019-08-25] MEDS ORDERED: LEVALBUTEROL 1.25 MG/0.5 ML CONCENTRATE NEB NEB PRN (01:15)
[2019-08-25 01:35] LABS: CK-MB VALUE MASS 5.2 NG/ML (<3.6); MAGNESIUM LEVEL 1.9 MG/DL (1.8-2.4); MB/CK RELATIVE INDEX 8.67 (< OR =4); PERCENT SATURATION 6.4 % (19.7-50.0); THYROID STIMULATING HORMONE 0.303 uIU/ML (0.358-3.740); TROPONIN I 0.02 NG/ML (< 0.10)
[2019-08-25] MEDS ORDERED: DIGOXIN INJ 0.5 MG/2 ML AMP (J1160) IV SCH (03:45)
[2019-08-25] MEDS: IPRATROPIUM 0.5MG/ALBUTEROL 2.5MG INH SOL UD 3ML (DUONEB) NEB SCH ×4 (04:29→19:51)
[2019-08-25] MEDS ORDERED: ISOVUE-370 76% 100ML VIAL As Ordered ONE (05:17)
[2019-08-25] MEDS ORDERED: NS 1,000 ML IV SCH (05:30)
[2019-08-25] MEDS: DOXYCYCLINE HYCLATE 100 MG in D5W MINI-BAG PLUS 100 ML IV SCH ×2 (06:21→17:31)
--- NOTE | 2019-08-25 06:24 | REPVR ---
PROCEDURE INFORMATION: Exam: CT Angiography Chest With Contrast Exam date and time: 08/25/2019 5:42 AM Age: 74 years old Clinical indication: Abnormal findings; Abnormal diagnostic tests; Elevated d-dimer; Additional info: Acute chf and acute copd w elevated dimer R/O pe as trigger TECHNIQUE: Imaging protocol: Computed tomographic angiography of the chest with intravenous contrast. 3D rendering: MIP and/or 3D reconstructed images were created by the technologist. Radiation optimization: All CT scans at this facility use at least one of these dose optimization techniques: automated exposure control; mA and/or kV adjustment per patient size (includes targeted exams where dose is matched to clinical indication); or iterative reconstruction. Contrast material: ISOVUE 370; Contrast volume: 75 ml; Contrast route: INTRAVENOUS (IV); COMPARISON: CT Chest with contrast 04/08/2019 9:53 PM FINDINGS: Pulmonary arteries: The main pulmonary artery measures 32 mm. No central pulmonary embolism is identified. Aorta: The ascending thoracic aorta measures 35 mm. Inferior vena cava: Left-sided IVC which drains to the coronary sinus. Lungs: Mild diffuse bullous change with mild scattered atelectasis and scar and question of minimal scattered infiltrates. There is an irregular nodule in the anterior right lower lobe which is new since the prior study with stranding into the surrounding lung parenchyma and slight retraction of the adjacent major fissure measuring 9 x 10 x 11 mm. Although this morphologically appears suspicious, the finding is new since the prior recent study. Additional smaller pulmonary nodules are noted and include a nodule in the posterior right lower lobe measuring up to 7 mm. There is pulmonary hyperinflation. Pleural space: Unremarkable. No pneumothorax. No pleural effusion. Heart: Unremarkable. No cardiomegaly. No pericardial effusion. Lymph nodes: Unremarkable. No enlarged lymph nodes. Kidneys and ureters: Multiple bilateral renal cysts measuring up to 9.6 cm on the left which may reflect polycystic kidneys and are incompletely seen. Bones/joints: Mild anterior wedge configuration of T6 and T7 which are similar to the prior study. Soft tissues: Unremarkable. IMPRESSION: 1. Mild diffuse bullous change with mild scattered atelectasis and scar and question of minimal scattered infiltrates which may be new or increased since the prior study. There is resolution of pleural effusions with decreased atelectasis or consolidation of the left lower lobe. 2. New irregular pulmonary nodule in the anterior right lower lobe measuring 9 x 10 x 11 mm with an additional smaller less suspicious nodule in the posterior right lower lobe which are new. Highly suspicious nodule(s). Consider PET/CT, or tissue sampling.(Ranjit et al., Fleischner Society, 2017). 3. Left-sided IVC draining into the coronary sinus. 4. Multiple bilateral renal cysts which may reflect polycystic kidneys. 5. Otherwise negative CTA chest. No central pulmonary embolism is identified. Electronically signed by: Maurice London On 08/25/2019 06:24:08 AM
[2019-08-25] MEDS ORDERED: AMIODARONE 150MG/3ML INJ (J0282) IVP STA (06:39)
[2019-08-25] MEDS ORDERED: AMIODARONE HCL 150 MG in IV 1 EA IV ONE (07:00)
[2019-08-25] MEDS: TIOTROPIUM INHALER/CAPSULE (SPIRIVA) INH SCH (07:45)
--- NOTE | 2019-08-25 07:48 | ECGEPIP ---
[facility] Test Date: 2019-08-25 Pat Name: REAL HICKS Department: Room: [place] [address] Gender: Male Personnel Technician: SULLY PELAEZB: 1945 Requested By: CARL CARNEY Order Number: [id number] Reading MD: Cecilia Castaneda Measurements Intervals [place] Rate: 145 P: [place]: 0 QRS: 64 QRSD: 122 T: 26 QT: 284 QTc: 442 Interpretive Statements ATRIAL FLUTTER/TACHYCARDIA WITH RAPID VENTRICULAR RESPONSE RIGHT BUNDLE BRANCH BLOCK SIMILAR TO 08/24/19 PRIOR Electronically Signed on 08-25-2019 7:47:49 EDT by Cecilia Castaneda
[2019-08-25 08:11] LABS: VENOUS HCO3 39.3 MEQ/L (23.0-27.0); VENOUS O2 SATURATION 93.2 % (60.0-80.0); VENOUS PARTIAL PRESSURE CO2 76.7 mmHg (38.0-50.0); VENOUS PARTIAL PRESSURE O2 73.9 mmHg (30.0-50.0); VENOUS PH 7.327 UNITS (7.330-7.430); VENOUS STANDARD HCO3 34.6 MEQ/L; VENOUS TOTAL CO2 41.6 MEQ/L (24.0-28.0)
--- NOTE | 2019-08-25 08:27 | REP ---
REASON: Cough and dyspnea. COMPARISON: 05/25/2019 from an outside institution. The technique utilized in obtaining the radiograph has magnified the cardiac silhouette and accentuated the interstitial markings. Once again, the interstitial markings are diffusely increased, however, this appears to have increased from the prior exam. The left costophrenic angle is not included on the radiograph. There are no gross pleural effusions. There is no change in the osseous structures. IMPRESSION: Congestive heart failure. Electronically Signed by Kade Velazquez DO 08/25/2019 09:18 A
[2019-08-25] MEDS: levETIRAcetam 250MG TABLET (KEPPRA) PO SCH ×2 (08:38→20:04)
[2019-08-25] MEDS: predniSONE 20 MG TAB PO SCH (08:38)
[2019-08-25] MEDS: SUCRALFATE 1 GM TAB PO SCH ×4 (08:39→20:04)
[2019-08-25] MEDS: FOLIC ACID 1 MG TAB PO SCH (08:39)
[2019-08-25] MEDS: SERTRALINE HCL 50 MG TAB PO SCH (08:39)
[2019-08-25] MEDS: TAMSULOSIN 0.4 MG CAP PO SCH (08:39)
[2019-08-25] MEDS: PANTOPRAZOLE 40MG TAB (PROTONIX) PO SCH (08:40)
[2019-08-25] MEDS: BENZONATATE 100 MG CAP PO SCH ×3 (08:40→20:04)
[2019-08-25] MEDS: ENOXAPARIN 40MG/0.4ML SYRINGE (J1650 PER 10MG) SC SCH (08:40)
[2019-08-25 08:48] LABS: ALBUMIN 2.9 GM/DL (3.2-5.2); ALT/SGPT 41 U/L (12-78); BILIRUBIN,TOTAL 0.3 MG/DL (0.2-1.0); BLOOD UREA NITROGEN 14 MG/DL (7-18); CALCIUM LEVEL 8.5 MG/DL (8.8-10.2); CARBON DIOXIDE LEVEL 38 MEQ/L (21-32); CHLORIDE LEVEL 92 MEQ/L (98-107); CK-MB VALUE MASS 3.3 NG/ML (<3.6); CPK CREATINE PHOSPHOKINASE 45 U/L (39-308); CREATININE FOR GFR 0.73 MG/DL (0.70-1.30); GLOMERULAR FILTRATION RATE > 60.0 (>42); GLUCOSE, FASTING 164 MG/DL (70-100); MB/CK RELATIVE INDEX 7.33 (< OR =4); SODIUM LEVEL 137 MEQ/L (136-145); TOTAL PROTEIN 7.5 GM/DL (6.4-8.2); TROPONIN I 0.02 NG/ML (< 0.10)
[2019-08-25] MEDS ORDERED: atenoloL 50 MG TAB PO ONE (09:00)
[2019-08-25] MEDS ORDERED: AMIODARONE 200 MG TAB (PACERONE) PO SCH (09:00)
--- NOTE | 2019-08-25 10:36 | ECGEPIP ---
[facility] - ED Test Date: 2019-08-24 Pat Name: REAL HICKS Department: Room: [place] [address] Gender: Male Conference Concierge: LIZET : 1945 Requested By: Felipe Augustine Order Number: [id number] Reading MD: Nayely Tucker Measurements Intervals [place] Rate: 144 P: [place]: 0 QRS: 50 QRSD: 117 T: 38 QT: 288 QTc: 447 Interpretive Statements ATRIAL FLUTTER/TACHYCARDIA WITH RAPID VENTRICULAR RESPONSE RIGHT BUNDLE BRANCH BLOCK 04/25/19 SINUS RHYTHM Electronically Signed on 08-25-2019 10:36:18 EDT by Nayely Tucker
[2019-08-25] MEDS: AMIODARONE 200 MG TAB (PACERONE) PO SCH ×3 (12:59→20:03)
[2019-08-25 13:55] LABS: CK-MB VALUE MASS 2.9 NG/ML (<3.6); MB/CK RELATIVE INDEX 7.63 (< OR =4); TROPONIN I 0.03 NG/ML (< 0.10)
[2019-08-25] MEDS: atenoloL 50 MG TAB PO SCH (20:05)
[2019-08-25] MEDS: ATORVASTATIN 20 MG TAB PO SCH (20:05)
[2019-08-25] MEDS: OLANZapine 5 MG TAB PO SCH (20:06)
--- NOTE | 2019-08-25 22:30 | IPN ---
DATE: 08/25/2019 Overnight patient remains in atrial fibrillation with rapid ventricular rate of 120 to 144. Patient had been given IV amiodarone times one and placed on amiodarone 200 mg four times a day with no improvement. His blood pressure, however, is adequate at 126 to 134 systolic. Patient was given atenolol this morning 100 mg times one and 50 mg this evening. Patient appears to have responded after 2 hours with heart rate decreasing from 140 to about 120 at the bedside. He says that his breathing is significantly improved from yesterday. He is currently on IV doxycycline and was given IV Solu-Medrol yesterday. No other issues per nursing overnight. Denies any chest pain, pressure, tightness, lightheadedness, or dizziness. He has not gotten out of bed yet this morning, but says that he feels "all right." PHYSICAL EXAM: Temperature 98.2, pulse is irregular, atrial fibrillation - on telemetry, rate of 120 to 144, respiratory rate of 20, blood pressure 146/97, 95% on 3 liters nasal cannula. Generally, patient is awake, alert, oriented to himself, answering questions appropriately without any conversational dyspnea or use of respiratory accessory muscles. Trachea is midline. There is no jugular venous distention (JVD) or thyromegaly. Lungs are diminished with bilateral rhonchi. Air entry is equal. No crackles or rales noted. Heart: S1, S2, irregularly irregular and tachycardic. Abdomen: Soft, nontender, nondistended. Extremities: No pitting edema. Patient has significant muscle atrophy. LABORATORY DATA: CBC, metabolic panel have been reviewed. Notable for anemia, hemoglobin of 8.5 and troponin being 0.02, BNP is 18,982. IMAGING STUDIES: CT chest 08/25/2019 shows diffuse bullous formation, scattered atelectasis and scarring, resolution of pleural effusions with decreased atelectasis. There is a right lower lobe anterior irregular pulmonary nodule measuring 9 x 10 x 11 mm, suspicious nodule in posterior right lobe which are new, highly suspicious, consider PET scan or tissue sampling. Left-sided inferior vena cava (IVC) draining into the coronary sinus. Otherwise negative CT. No central pulmonary embolism is seen. ASSESSMENT AND PLAN: This is a 74-year-old male with a history of chronic atrial fibrillation, chronic diastolic heart failure, 3 liters home oxygen dependent, pulmonary hypertension, group 3, protein-calorie malnutrition, pulmonary nodules, schizophrenia and depression, complex partial seizures, BPH with chronic indwelling Diaz catheter, abdominal aortic aneurysm 3.1 cm, presents to the emergency room with worsening shortness of breath and was found to have acute chronic obstructive pulmonary disease (COPD) exacerbation along with atrial fibrillation with rapid ventricle response. Patient did not respond to IV metoprolol yesterday, along with IV amiodarone, had been placed on amiodarone 200 mg four times a day. Since the patient's blood pressure has improved, he has now been given atenolol. IMPRESSION: 1. Atrial fibrillation with rapid ventricular response (RVR). Currently on amiodarone 200 mg four times a day, failed on amiodarone and metoprolol IV yesterday. Resume back on his atenolol due to blood pressure being adequate at 134 systolic. Patient appears to be responding well and has decrease in heart rate from 144 to about 120 at the bedside. Feels well. Will continue with atenolol 50 mg this evening and slowly tapered amiodarone. It will be given at noontime if rate remains above 120. 2. Acute chronic obstructive pulmonary disease exacerbation. Patient continues to have rhonchi on examination, did receive Solu-Medrol 125 mg yesterday. He is continued on Xopenex 0.63 mg every 2 hours. We will discontinue patient's albuterol as he remains tachycardic. 3. History of seizure disorder. Continue on Keppra. 4. Chronic diastolic heart failure. Appears to be well compensated, euvolemic. Strict intake and output, daily weights. Resume on home dose of diuretics. 5. History of schizophrenia and depression. On olanzapine and sertraline. 6. Hyperlipidemia. Atorvastatin. 7. Hypertension. Currently adequately 120-140 systolic, currently on atenolol. 8. Dyslipidemia. Continue on Lipitor. MTDD
[2019-08-26] VITALS (7 sets, daily range): BP systolic 102–125; BP diastolic 51–71
[2019-08-26] MEDS: IPRATROPIUM 0.5MG/ALBUTEROL 2.5MG INH SOL UD 3ML (DUONEB) NEB SCH ×4 (02:00→20:22)
[2019-08-26 04:42] LABS: HEMATOCRIT 29.4 % (42.0-52.0); HEMOGLOBIN 8.6 g/dl (13.5-17.5); MEAN CORPUSCULAR HEMOGLOBIN 28.9 pg (27.0-33.0); MEAN CORPUSCULAR HGB CONC 29.3 g/dl (32.0-36.5); MEAN CORPUSCULAR VOLUME 98.7 fl (80.0-96.0); PLATELET COUNT, AUTOMATED 301 10^3/uL (150-450); RED BLOOD COUNT 2.98 10^6/uL (4.30-6.10); WHITE BLOOD COUNT 13.3 10^3/uL (4.0-10.0)
[2019-08-26 05:17] LABS: BLOOD UREA NITROGEN 25 MG/DL (7-18); CALCIUM LEVEL 8.5 MG/DL (8.8-10.2); CARBON DIOXIDE LEVEL 42 MEQ/L (21-32); CHLORIDE LEVEL 98 MEQ/L (98-107); CREATININE FOR GFR 0.81 MG/DL (0.70-1.30); GLOMERULAR FILTRATION RATE > 60.0 (>42); GLUCOSE, FASTING 95 MG/DL (70-100); POTASSIUM SERUM 4.2 MEQ/L (3.5-5.1); SODIUM LEVEL 140 MEQ/L (136-145)
[2019-08-26] MEDS: DOXYCYCLINE HYCLATE 100 MG in D5W MINI-BAG PLUS 100 ML IV SCH ×2 (05:53→17:31)
[2019-08-26] MEDS: SUCRALFATE 1 GM TAB PO SCH ×4 (07:26→20:46)
[2019-08-26 07:29] LABS: FREE T4 1.08 NG/DL (0.76-1.46); THYROID STIMULATING HORMONE 0.277 uIU/ML (0.358-3.740)
[2019-08-26] MEDS: TIOTROPIUM INHALER/CAPSULE (SPIRIVA) INH SCH (07:46)
[2019-08-26] MEDS: predniSONE 20 MG TAB PO SCH (08:09)
[2019-08-26] MEDS: AMIODARONE 200 MG TAB (PACERONE) PO SCH (08:09)
[2019-08-26] MEDS: BENZONATATE 100 MG CAP PO SCH ×3 (08:09→20:46)
[2019-08-26] MEDS: PANTOPRAZOLE 40MG TAB (PROTONIX) PO SCH (08:09)
[2019-08-26] MEDS: levETIRAcetam 250MG TABLET (KEPPRA) PO SCH ×2 (08:09→20:46)
[2019-08-26] MEDS: FOLIC ACID 1 MG TAB PO SCH (08:09)
[2019-08-26] MEDS: TAMSULOSIN 0.4 MG CAP PO SCH (08:09)
[2019-08-26] MEDS: SERTRALINE HCL 50 MG TAB PO SCH (08:10)
[2019-08-26] MEDS: atenoloL 50 MG TAB PO SCH ×2 (08:10→21:00)
[2019-08-26] MEDS: ENOXAPARIN 40MG/0.4ML SYRINGE (J1650 PER 10MG) SC SCH (08:10)
[2019-08-26] MEDS ORDERED: FUROSEMIDE 40MG/4ML VIAL (J1940) IV ONE (09:00)
--- NOTE | 2019-08-26 13:07 | IPNPDOC ---
Text Note Date of Service The patient was seen on 08/26/19. NOTE Subjective: Reports feeling much better GEN: NAD HEENT:NCAT, PERRLA, EOMI, MMM, nasal canula in place CVS: irregularly irregular, distant heart sounds with no noted m/r/g LUNGS: Decreased respiratory expansion, diminished, rhonchi are present, no manoj crackles, no wheezing ABDOMEN: Epigastric abdominal hernia, otherwise NTND, normoactive sounds and soft NEURO: CN 2-12 are grossly intact, speech is not dysarthric, moving all extremities PSYCH: AOx3 Labs: WBC 13.3 hgb 8.6 platelets 301 na 140 K 4.2 Cr 0.81 bicarb 42 CTA chest: 1. Mild diffuse bullous change with mild scattered atelectasis and scar and question of minimal scattered infiltrates which may be new or increased since the prior study. There is resolution of pleural effusions with decreased atelectasis or consolidation of the left lower lobe. 2. New irregular pulmonary nodule in the anterior right lower lobe measuring 9 x 10 x 11 mm with an additional smaller less suspicious nodule in the posterior right lower lobe which are new. Highly suspicious nodule(s). Consider PET/CT, or tissue sampling.(Ranjit et al., Fleischner Society, 2017). 3. Left-sided IVC draining into the coronary sinus. 4. Multiple bilateral renal cysts which may reflect polycystic kidneys. 5. Otherwise negative CTA chest. No central pulmonary embolism is identified. Respiratory PCR: Rhinovirus positive 74-year-old male with a history of chronic atrial fibrillation, chronic diastolic heart failure, COPD on 3 liters home oxygen, pulmonary hypertension group 3, protein-calorie malnutrition, pulmonary nodules, schizophrenia and depression, complex partial seizures, BPH with chronic indwelling Diaz catheter, abdominal aortic aneurysm 3.1 cm, who was admitted with worsening dyspnea and found to have acute chronic obstructive pulmonary disease exacerbation 2/2 rhinovirus along with atrial fibrillation with rapid ventricle response. IMPRESSION: 1. Atrial fibrillation with rapid ventricular response (RVR) in the setting of rhinovirus and possible superimposed bacterial pneumonia -Discontinue amiodarone 200 mg four times a day -continue atenolol 50 BID -attempted to consult Dr. Harper, declined and will give recommendations as needed 2. Acute chronic obstructive pulmonary disease exacerbation 2/2 Rhinovirus -s/p Solu-Medrol 125 mg in ED, now on pred 40 QD, will switch back to solumedrol 80 BID for one more day and as hypoxemia improves will return to PO pred -duonebs Q6H -supplemental O2, on high flow currently -continue Xopenex 0.63 mg every 2 hours as needed -continue tiotropium inhaler -Continue empiric doxycycline for now with pending sputum Cx and procalcitonin for potential superimposed bacterial PNA 3. History of seizure disorder. Continue on Keppra. 4. Acute on chronic diastolic heart failure. Appears to be well compensated, euvolemic however with significant pulmonary congestion and proBNP >18K - Strict intake and output, - daily weights - will give 40 IV lasix now and assess in 6 hours his output and if he needs BID dosing - fluid restrict to 1800cc/24h - daily BMP and Mag with electrolyte repletion 5. History of schizophrenia and depression. On olanzapine and sertraline. 6. Hyperlipidemia. Atorvastatin. 7. Hypertension. Continue atenolol. 8. Dyslipidemia. Continue on Lipitor. VS,Fishbone, I+O VS, Fishbone, I+O Laboratory Tests 08/26/19 04:28 Vital Signs Date Time Temp Pulse Resp B/P (MAP) Pulse Ox O2 Delivery O2 Flow Rate FiO2 08/26/19 08:00 96.9 91 22 125/64 (84) 92 High Flow Cannula 5.0 I&O- Last 24 Hours up to 6 AM 08/26/19 05:59 Intake Total 2660 ml Output Total 2650 ml Balance 10 ml BERT MCGOWAN MD Aug 26, 2019 08:34
[2019-08-26 16:41] LABS: FREE T3 1.4 PG/ML (2.2-4.0)
[2019-08-26] MEDS: ATORVASTATIN 20 MG TAB PO SCH (20:46)
[2019-08-26] MEDS: OLANZapine 5 MG TAB PO SCH (20:46)
[2019-08-26] MEDS: methylPREDNISolone INJ 125 MG/2 ML VIAL (J2930) IV SCH (20:47)
[2019-08-27] VITALS: BP 113/54
[2019-08-27] MEDS: IPRATROPIUM 0.5MG/ALBUTEROL 2.5MG INH SOL UD 3ML (DUONEB) NEB SCH ×4 (00:33→20:17)
[2019-08-27 04:00] VITALS: BP 112/62
[2019-08-27] MEDS: DOXYCYCLINE HYCLATE 100 MG in D5W MINI-BAG PLUS 100 ML IV SCH ×2 (05:40→17:05)
[2019-08-27] MEDS: TIOTROPIUM INHALER/CAPSULE (SPIRIVA) INH SCH (07:12)
[2019-08-27 08:00] VITALS: BP 141/65
[2019-08-27] MEDS: ENOXAPARIN 40MG/0.4ML SYRINGE (J1650 PER 10MG) SC SCH (08:19)
[2019-08-27] MEDS: BENZONATATE 100 MG CAP PO SCH ×3 (08:19→20:44)
[2019-08-27] MEDS: methylPREDNISolone INJ 125 MG/2 ML VIAL (J2930) IV SCH (08:19)
[2019-08-27] MEDS: levETIRAcetam 250MG TABLET (KEPPRA) PO SCH ×2 (08:20→20:43)
[2019-08-27] MEDS: TAMSULOSIN 0.4 MG CAP PO SCH (08:20)
[2019-08-27] MEDS: SERTRALINE HCL 50 MG TAB PO SCH (08:20)
[2019-08-27] MEDS: FOLIC ACID 1 MG TAB PO SCH (08:20)
[2019-08-27] MEDS: SUCRALFATE 1 GM TAB PO SCH ×4 (08:20→20:43)
[2019-08-27] MEDS: PANTOPRAZOLE 40MG TAB (PROTONIX) PO SCH (08:20)
[2019-08-27] MEDS: atenoloL 50 MG TAB PO SCH ×2 (08:20→20:44)
[2019-08-27 09:20] LABS: HEMATOCRIT 29.5 % (42.0-52.0); HEMOGLOBIN 8.3 g/dl (13.5-17.5); MEAN CORPUSCULAR HEMOGLOBIN 28.9 pg (27.0-33.0); MEAN CORPUSCULAR HGB CONC 28.1 g/dl (32.0-36.5); MEAN CORPUSCULAR VOLUME 102.8 fl (80.0-96.0); PLATELET COUNT, AUTOMATED 327 10^3/uL (150-450); RED BLOOD COUNT 2.87 10^6/uL (4.30-6.10)
[2019-08-27 09:42] LABS: BLOOD UREA NITROGEN 31 MG/DL (7-18); CALCIUM LEVEL 8.8 MG/DL (8.8-10.2); CARBON DIOXIDE LEVEL 40 MEQ/L (21-32); CHLORIDE LEVEL 97 MEQ/L (98-107); GLOMERULAR FILTRATION RATE > 60.0 (>42); GLUCOSE, FASTING 199 MG/DL (70-100); MAGNESIUM LEVEL 1.8 MG/DL (1.8-2.4); POTASSIUM SERUM 4.3 MEQ/L (3.5-5.1); SODIUM LEVEL 141 MEQ/L (136-145)
[2019-08-27 12:00] VITALS: BP 158/68
--- NOTE | 2019-08-27 12:01 | IPNPDOC ---
Text Note Date of Service The patient was seen on 08/27/19. NOTE Subjective: Continues to feel much better GEN: NAD HEENT:NCAT, PERRLA, EOMI, MMM, nasal canula in place CVS: irregularly irregular, distant heart sounds with no noted m/r/g LUNGS: Much improved aeration, clear , no manoj crackles, no wheezing ABDOMEN: Epigastric abdominal hernia, otherwise NTND, normoactive sounds and soft NEURO: CN 2-12 are grossly intact, speech is not dysarthric, moving all extremities PSYCH: AOx3 Labs: AM labs pending CTA chest: 1. Mild diffuse bullous change with mild scattered atelectasis and scar and question of minimal scattered infiltrates which may be new or increased since the prior study. There is resolution of pleural effusions with decreased atelectasis or consolidation of the left lower lobe. 2. New irregular pulmonary nodule in the anterior right lower lobe measuring 9 x 10 x 11 mm with an additional smaller less suspicious nodule in the posterior right lower lobe which are new. Highly suspicious nodule(s). Consider PET/CT, or tissue sampling.(Ranjit et al., Fleischner Society, 2017). 3. Left-sided IVC draining into the coronary sinus. 4. Multiple bilateral renal cysts which may reflect polycystic kidneys. 5. Otherwise negative CTA chest. No central pulmonary embolism is identified. Respiratory PCR: Rhinovirus positive 74-year-old male with a history of chronic atrial fibrillation, chronic diastolic heart failure, COPD on 3 liters home oxygen, pulmonary hypertension group 3, protein-calorie malnutrition, pulmonary nodules, schizophrenia and depression, complex partial seizures, BPH with chronic indwelling Diaz catheter, abdominal aortic aneurysm 3.1 cm, who was admitted with worsening dyspnea and found to have acute chronic obstructive pulmonary disease exacerbation 2/2 rhinovirus along with atrial fibrillation with rapid ventricle response. IMPRESSION: 1. Atrial fibrillation with rapid ventricular response (RVR) in the setting of rhinovirus and possible superimposed bacterial pneumonia -continue atenolol 50 BID -attempted to consult Dr. Harper, declined consult as he is not within their practice but will give recommendations as needed. As of yesterday, agreed with discontinuing amiodarone now that persistent RVR had stopped and he was now rate controlled. With regard to anticoagulation, he mentioned candidacy for a Watchmen but that would have to be discussed with the patient's outpatient cardiology who is [place] based. 2. Acute chronic obstructive pulmonary disease exacerbation 2/2 Rhinovirus -s/p IV Solu-Medrol with much improvement, now transitioning to pred 40 QD -duonebs Q6H -supplemental O2, on high flow currently -continue Xopenex 0.63 mg every 2 hours as needed -continue tiotropium inhaler -Continue empiric doxycycline with pending sputum Cx and procalcitonin for potential superimposed bacterial PNA 3. History of seizure disorder. Continue on Keppra. 4. Acute on chronic diastolic heart failure. Appears to be well compensated, e uvolemic. - Strict intake and output, - daily weights - no diuretics today, he appears dry on examination and is back to 3L per home settings - fluid restrict to 1800cc/24h - daily BMP and Mag with electrolyte repletion 5. History of schizophrenia and depression. On olanzapine and sertraline. 6. Hyperlipidemia. Atorvastatin. 7. Hypertension. Continue atenolol. 8. Dyslipidemia. Continue on Lipitor. VS,Fishbone, I+O VS, Fishbone, I+O Vital Signs Date Time Temp Pulse Resp B/P (MAP) Pulse Ox O2 Delivery O2 Flow Rate FiO2 08/27/19 08:20 84 141/65 08/27/19 08:00 98.9 24 89 Nasal Cannula 3.0 I&O- Last 24 Hours up to 6 AM 08/27/19 06:00 Intake Total 2060 ml Output Total 1250 ml Balance 810 ml BERT MCGOWAN MD Aug 27, 2019 08:46
[2019-08-27] MEDS ORDERED: MAGNESIUM OXIDE 400 MG TAB (MAG-OX) PO ONE (13:00)
[2019-08-27 16:00] VITALS: BP 136/60
[2019-08-27 20:00] VITALS: BP 148/67
[2019-08-27] MEDS: ATORVASTATIN 20 MG TAB PO SCH (20:43)
[2019-08-27] MEDS: OLANZapine 5 MG TAB PO SCH (20:44)
[2019-08-28] MEDS: IPRATROPIUM 0.5MG/ALBUTEROL 2.5MG INH SOL UD 3ML (DUONEB) NEB SCH ×4 (02:00→19:14)
[2019-08-28 04:00] VITALS: BP 151/71
[2019-08-28] MEDS: DOXYCYCLINE HYCLATE 100 MG in D5W MINI-BAG PLUS 100 ML IV SCH (05:02)
[2019-08-28 05:21] LABS: HEMATOCRIT 29.1 % (42.0-52.0); HEMOGLOBIN 8.2 g/dl (13.5-17.5); MEAN CORPUSCULAR HEMOGLOBIN 29.1 pg (27.0-33.0); MEAN CORPUSCULAR HGB CONC 28.2 g/dl (32.0-36.5); MEAN CORPUSCULAR VOLUME 103.2 fl (80.0-96.0); PLATELET COUNT, AUTOMATED 307 10^3/uL (150-450); RED BLOOD COUNT 2.82 10^6/uL (4.30-6.10); WHITE BLOOD COUNT 12.7 10^3/uL (4.0-10.0)
[2019-08-28 05:51] LABS: BLOOD UREA NITROGEN 30 MG/DL (7-18); CALCIUM LEVEL 8.8 MG/DL (8.8-10.2); CARBON DIOXIDE LEVEL 43 MEQ/L (21-32); CHLORIDE LEVEL 101 MEQ/L (98-107); CREATININE FOR GFR 0.83 MG/DL (0.70-1.30); GLOMERULAR FILTRATION RATE > 60.0 (>42); GLUCOSE, FASTING 103 MG/DL (70-100); POTASSIUM SERUM 4.3 MEQ/L (3.5-5.1); SODIUM LEVEL 142 MEQ/L (136-145)
[2019-08-28] MEDS: TIOTROPIUM INHALER/CAPSULE (SPIRIVA) INH SCH (07:51)
[2019-08-28] MEDS: ENOXAPARIN 40MG/0.4ML SYRINGE (J1650 PER 10MG) SC SCH (08:39)
[2019-08-28] MEDS: FOLIC ACID 1 MG TAB PO SCH (08:40)
[2019-08-28] MEDS: SUCRALFATE 1 GM TAB PO SCH ×4 (08:40→21:18)
[2019-08-28] MEDS: SERTRALINE HCL 50 MG TAB PO SCH (08:40)
[2019-08-28] MEDS: atenoloL 50 MG TAB PO SCH ×2 (08:41→21:20)
[2019-08-28] MEDS: TAMSULOSIN 0.4 MG CAP PO SCH (08:41)
[2019-08-28] MEDS: BENZONATATE 100 MG CAP PO SCH ×3 (08:42→21:18)
[2019-08-28] MEDS: predniSONE 20 MG TAB PO SCH (08:42)
[2019-08-28] MEDS: levETIRAcetam 250MG TABLET (KEPPRA) PO SCH ×2 (08:42→21:18)
[2019-08-28] MEDS: PANTOPRAZOLE 40MG TAB (PROTONIX) PO SCH (08:42)
[2019-08-28] MEDS: MAGNESIUM OXIDE 400 MG TAB (MAG-OX) PO SCH ×2 (08:48→21:18)
--- NOTE | 2019-08-28 10:58 | IPNPDOC ---
Text Note Date of Service The patient was seen on 08/28/19. NOTE Subjective: No acute issues over the last 24h GEN: NAD HEENT:NCAT, PERRLA, EOMI, MMM, nasal canula in place CVS: irregularly irregular, distant heart sounds with no noted m/r/g LUNGS: Decreased respiratory expansion, diminished, rhonchi are present, no manoj crackles, no wheezing ABDOMEN: Epigastric abdominal hernia, otherwise NTND, normoactive sounds and soft NEURO: CN 2-12 are grossly intact, speech is not dysarthric, moving all extremities PSYCH: AOx3 Labs: WBC 12.7 hgb 8.2 platelets 307 Cr 0.83 bicarb 43 CTA chest: 1. Mild diffuse bullous change with mild scattered atelectasis and scar and question of minimal scattered infiltrates which may be new or increased since the prior study. There is resolution of pleural effusions with decreased atelectasis or consolidation of the left lower lobe. 2. New irregular pulmonary nodule in the anterior right lower lobe measuring 9 x 10 x 11 mm with an additional smaller less suspicious nodule in the posterior right lower lobe which are new. Highly suspicious nodule(s). Consider PET/CT, or tissue sampling.(Ranjit et al., Fleischner Society, 2017). 3. Left-sided IVC draining into the coronary sinus. 4. Multiple bilateral renal cysts which may reflect polycystic kidneys. 5. Otherwise negative CTA chest. No central pulmonary embolism is identified. Respiratory PCR: Rhinovirus positive Sputum culture with E.coli and some yeast Assessment: 74-year-old M with a history of chronic atrial fibrillation, chronic diastolic heart failure, COPD on 3 liters home oxygen, pulmonary hypertension group 3, protein-calorie malnutrition, pulmonary nodules, schizophrenia and depression, complex partial seizures, BPH with chronic indwelling Diaz catheter, abdominal aortic aneurysm 3.1 cm, who was admitted with worsening dyspnea and found to have acute chronic obstructive pulmonary disease exacerbation 2/2 rhinovirus along with atrial fibrillation with rapid ventricle response. IMPRESSION: 1. Atrial fibrillation with rapid ventricular response (RVR) in the setting of rhinovirus and possible superimposed bacterial pneumonia -continue atenolol 50 BID -attempted to consult Dr. Harper, declined and will give recommendations as needed. Currently stable 2. Acute chronic obstructive pulmonary disease exacerbation 2/2 Rhinovirus -s/p Solu-Medrol 125 mg in ED, now on pred 40 QD, day 2 -duonebs Q6H -supplemental O2, on high flow currently -continue Xopenex 0.63 mg every 2 hours as needed -continue tiotropium inhaler -Switch IV doxycycline to PO levaquin for E.coli PNA 3. History of seizure disorder. Continue on Keppra. 4. Acute on chronic diastolic heart failure. Appears to be well compensated, euv olemic despite elevated proBNP at admission - Strict intake and output, - daily weights - fluid restrict to 1800cc/24h - daily BMP and Mag with electrolyte repletion 5. History of schizophrenia and depression. On olanzapine and sertraline. 6. Hyperlipidemia. Atorvastatin. 7. Hypertension. Continue atenolol. 8. Dyslipidemia. Continue on Lipitor. VS,Fishbone, I+O VS, Fishbone, I+O Laboratory Tests 08/27/19 08:58 08/28/19 04:49 Vital Signs Date Time Temp Pulse Resp B/P (MAP) Pulse Ox O2 Delivery O2 Flow Rate FiO2 08/28/19 04:00 3.0 08/28/19 04:00 97.5 79 18 151/71 (97) 91 High Flow Cannula I&O- Last 24 Hours up to 6 AM 08/28/19 05:59 Intake Total 1940 ml Output Total 975 ml Balance 965 ml BERT MCGOWAN MD Aug 28, 2019 08:45
[2019-08-28] MEDS: LevoFLOXacin 750 MG TABLET PO SCH (11:11)
[2019-08-28] MEDS: guaiFENesin ER 600 MG TAB PO SCH ×2 (11:11→21:18)
[2019-08-28 12:00] VITALS: BP 137/75
[2019-08-28 20:00] VITALS: BP 158/77
[2019-08-28] MEDS: ATORVASTATIN 20 MG TAB PO SCH (21:18)
[2019-08-28] MEDS: OLANZapine 5 MG TAB PO SCH (21:18)
[2019-08-29] MEDS: IPRATROPIUM 0.5MG/ALBUTEROL 2.5MG INH SOL UD 3ML (DUONEB) NEB SCH ×3 (02:04→13:35)
[2019-08-29 04:00] VITALS: BP 154/70
[2019-08-29] MEDS: LevoFLOXacin 750 MG TABLET PO SCH (05:18)
[2019-08-29 06:15] LABS: HEMATOCRIT 28.1 % (42.0-52.0); MEAN CORPUSCULAR HGB CONC 28.5 g/dl (32.0-36.5); MEAN CORPUSCULAR VOLUME 101.8 fl (80.0-96.0); PLATELET COUNT, AUTOMATED 298 10^3/uL (150-450); RED BLOOD COUNT 2.76 10^6/uL (4.30-6.10); WHITE BLOOD COUNT 8.8 10^3/uL (4.0-10.0)
[2019-08-29 06:33] LABS: BLOOD UREA NITROGEN 30 MG/DL (7-18); CARBON DIOXIDE LEVEL 44 MEQ/L (21-32); CHLORIDE LEVEL 100 MEQ/L (98-107); CREATININE FOR GFR 0.64 MG/DL (0.70-1.30); GLOMERULAR FILTRATION RATE > 60.0 (>42); GLUCOSE, FASTING 89 MG/DL (70-100); POTASSIUM SERUM 4.8 MEQ/L (3.5-5.1); SODIUM LEVEL 145 MEQ/L (136-145)
[2019-08-29] MEDS: TIOTROPIUM INHALER/CAPSULE (SPIRIVA) INH SCH (07:10)
[2019-08-29 08:00] VITALS: BP 146/68
[2019-08-29] MEDS: TAMSULOSIN 0.4 MG CAP PO SCH (09:15)
[2019-08-29] MEDS: SERTRALINE HCL 50 MG TAB PO SCH (09:15)
[2019-08-29] MEDS: predniSONE 20 MG TAB PO SCH (09:15)
[2019-08-29] MEDS: ENOXAPARIN 40MG/0.4ML SYRINGE (J1650 PER 10MG) SC SCH (09:15)
[2019-08-29] MEDS: PANTOPRAZOLE 40MG TAB (PROTONIX) PO SCH (09:16)
[2019-08-29] MEDS: BENZONATATE 100 MG CAP PO SCH (09:16)
[2019-08-29] MEDS: MAGNESIUM OXIDE 400 MG TAB (MAG-OX) PO SCH (09:16)
[2019-08-29] MEDS: FOLIC ACID 1 MG TAB PO SCH (09:16)
[2019-08-29] MEDS: levETIRAcetam 250MG TABLET (KEPPRA) PO SCH (09:16)
[2019-08-29] MEDS: guaiFENesin ER 600 MG TAB PO SCH (09:16)
[2019-08-29] MEDS: SUCRALFATE 1 GM TAB PO SCH ×2 (09:16→11:54)
[2019-08-29 09:17] VITALS: BP 146/68
[2019-08-29] MEDS: atenoloL 50 MG TAB PO SCH (09:17)
[2019-08-29] MEDS ORDERED: PRED10TA2 PO (12:13)
[2019-08-29] MEDS ORDERED: BENZ-18 PO (12:13)
[2019-08-29] MEDS ORDERED: COLA100C5 PO (12:13)
[2019-08-29] MEDS ORDERED: FERR325T18 PO (12:13)
[2019-08-29] MEDS ORDERED: LEVA750T7 PO (12:13)
[2019-08-29] MEDS ORDERED: ATEN50TA2 PO (12:13)
[2019-08-29] MEDS ORDERED: IRON SUCROSE 300 MG in NS 250 ML IV ONE (14:00)
[2019-08-29 16:16] LABS: TOTAL PROTEIN 7.1 GM/DL (6.4-8.2)
[2019-08-29 16:17] LABS: ALBUMIN 3.1 GM/DL (3.2-5.2); BILIRUBIN,DIRECT 0.1 MG/DL (0.0-0.2); BILIRUBIN,TOTAL 0.3 MG/DL (0.2-1.0); TOTAL PROTEIN 7.3 GM/DL (6.4-8.2)
[2019-08-31 13:12] LABS: ALBUMIN % 50.6 % (55.8-66.1); ALPHA-1-GLOBULIN % 5.7 % (2.9-4.9); ALPHA-2-GLOBULINS % 9.9 % (7.1-11.8); BETA-1-GLOBULINS % 6.2 % (4.7-7.2); BETA-2-GLOBULINS % 5.2 % (3.2-6.5)
[2019-08-31 13:13] LABS: ALBUMIN 3.59 GM/DL (3.29-5.55); BETA-1-GLOBULINS 0.44 GM/DL (0.28-0.60); BETA-2-GLOBULINS 0.37 GM/DL (0.19-0.55); GAMMA GLOBULIN % 22.4 % (11.1-18.8); GAMMA GLOBULINS 1.59 GM/DL (0.65-1.58)
[2019-08-31 17:09] LABS: FREE KAPPA LIGHT CHAINS SERUM 34.1 mg/L (3.3-19.4); FREE LAMBDA LIGHT CHAINS SERUM 26.1 mg/L (5.7-26.3); KAPPA/LAMBDA RATIO SERUM 1.31 (0.26-1.65)
== END 2019-08-29 16:09 | disposition home health service (06) | DRG 177 ==
LOC: M ED 21:52 → M ED INP 08-25 00:56 → ENRESERV 08-25 04:32 → M PCU 08-25 05:15 → M ICU 08-25 05:58 → M PCU 08-26 21:35
PROVIDERS: ADMIT Internal Medicine; ATTEND Internal Medicine
DX: J15.5 Pneumonia due to Escherichia coli (principal); I50.33 Acute on chronic diastolic (congestive) heart failure; J44.1 Chronic obstructive pulmonary disease with (acute) exacerbation; J96.10 Chronic respiratory failure, unspecified whether with hypoxia or hypercapnia; E46 Unspecified protein-calorie malnutrition; I48.20 Chronic atrial fibrillation, unspecified; J44.0 Chronic obstructive pulmonary disease with (acute) lower respiratory infection; G40.209 Localization-related (focal) (partial) symptomatic epilepsy and epileptic syndromes with complex partial seizures, not intractable, without status epilepticus; I27.20 Pulmonary hypertension, unspecified; D64.9 Anemia, unspecified; Z66 Do not resuscitate; R91.1 Solitary pulmonary nodule; F10.21 Alcohol dependence, in remission; F20.9 Schizophrenia, unspecified; F32.9 Major depressive disorder, single episode, unspecified; E78.5 Hyperlipidemia, unspecified; I11.0 Hypertensive heart disease with heart failure; N40.1 Benign prostatic hyperplasia with lower urinary tract symptoms; R33.9 Retention of urine, unspecified; E03.9 Hypothyroidism, unspecified; I71.4 Abdominal aortic aneurysm, without rupture; Z87.891 Personal history of nicotine dependence; Z11.59 Encounter for screening for other viral diseases; Z99.81 Dependence on supplemental oxygen; Z79.899 Other long term (current) drug therapy

== ENCOUNTER 2019-09-13 13:00 | Day surgery (SDC) | payer MEDICARE ==
[~2019-09-13] VITALS: Ht 167.6 cm; Wt 59.0 kg
[~2019-09-13 13:00] MED LIST changes: +ATEN50TA2 PO; +BENZ-18 PO; +COLA100C5 PO; +LEVA750T7 PO; +LIDOCAINE 2% 100MG/5ML SDV (FOR ANES.) As Ordered ONE; +NS 1,000 ML IV ONE; +PANT40TA29 PO; -PANT40TA3 PO; +PRED10TA2 PO; +propofoL 200 MG/20 ML VIAL As Ordered ONE
[2019-09-13] MEDS ORDERED: ALBUTEROL SULFATE 2.5 MG/0.5 ML INH NEB SOLN As Ordered ONE (14:30)
--- NOTE | 2019-10-25 11:26 | ROOR ---
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 Procedure: Pre-Anesthesia Assessment: - The heart rate, respiratory rate, oxygen saturations, blood pressure, adequacy of pulmonary ventilation, and response to care were monitored throughout the procedure. The Colonoscope was introduced through the anus and advanced to the sigmoid colon. The colonoscopy was performed without difficulty. The patient tolerated the procedure well. The quality of the bowel preparation was inadequate. Findings: The digital rectal exam revealed a firm rectal mass. A sessile partially obstructing large mass was found in the rectum. The mass was partially circumferential (involving one-third of the lumen circumference). The mass measured five cm in length. No bleeding was present. This was biopsied with a cold forceps for histology. Multiple small and large-mouthed diverticula were found in the recto-sigmoid colon. A large amount of stool was found in the recto-sigmoid colon, precluding visualization. The exam was otherwise without abnormality. Impression: - Preparation of the colon was inadequate. - Rectal mass. - Rule out malignancy, partially obstructing tumor in the rectum. Biopsied. - Diverticulosis in the recto-sigmoid colon. - Stool in the recto-sigmoid colon. - The examination was otherwise normal. - The exam was suboptimal due to patient preparation. - Malignant-appearing tumor in the colon. Biopsied. - The examination was otherwise normal. Recommendation: - Patient has a contact number available for emergencies. The signs and symptoms of potential delayed complications were discussed with the patient. Return to normal activities tomorrow. Written discharge instructions were provided to the patient. - Discharge patient to home. - Continue present medications. - Await pathology results. - Telephone GI clinic for pathology results in 1 week. - Refer to a surgeon. - The findings and recommendations were discussed with the patient. Korey Sales MD Korey Sales MD 09/13/2019 1:56:15 PM Electronically signed by Korey Sales MD Number of Addenda: 0 Note Initiated On: 09/13/2019 1:26 PM Estimated Blood Loss: Estimated blood loss: none.
--- NOTE | 2019-10-25 11:26 | ROOR ---
Patient Name: Dustin Salas Procedure Date: 09/13/2019 1:28 PM Date of : 1945 Age: 74 Room: [facility] Gender: Male Note Status: Finalized Procedure: Upper Endoscopy + Biopsies Indications: Unexplained iron deficiency anemia Providers: Korey Sales MD Referring MD: Dwayne David Md Requesting Provider: Medicines: Monitored Anesthesia Care Complications: No immediate complications. Procedure: Pre-Anesthesia Assessment: - The heart rate, respiratory rate, oxygen saturations, blood pressure, adequacy of pulmonary ventilation, and response to care were monitored throughout the procedure. The Endoscope was introduced through the mouth, and advanced to the second part of duodenum. The upper GI endoscopy was accomplished without difficulty. The patient tolerated the procedure well. Findings: The Z-line was regular and was found 35 cm from the incisors. Multiple biopsies were obtained with cold forceps for evaluation to rule out Chan's Esophagus randomly at the gastroesophageal junction. A large hiatal hernia was present. No other significant abnormalities were identified in a careful examination of the stomach. Biopsies were taken with a cold forceps in the gastric antrum for Helicobacter pylori testing. Diffuse mildly erythematous mucosa without active bleeding and with no stigmata of bleeding was found in the first portion of the duodenum. The exam was otherwise without abnormality. Impression: - Z-line regular, 35 cm from the incisors. - Large hiatal hernia. - Erythematous duodenopathy. - The examination was otherwise normal. - Multiple biopsies were obtained at the gastroesophageal junction. - Biopsies were taken with a cold forceps for Helicobacter pylori testing. - The examination was otherwise normal. Recommendation: - Patient has a contact number available for emergencies. The signs and symptoms of potential delayed complications were discussed with the patient. Return to normal activities tomorrow. Written discharge instructions were provided to the patient. - Discharge patient to home. - Follow an antireflux regimen. - Continue present medications. - Await pathology results. - Telephone GI clinic for pathology results in 1 week. - Return to referring physician. - The findings and recommendations were discussed with the patient. Korey Sales MD Korey Sales MD 09/13/2019 1:40:00 PM Number of Addenda: 0 Note Initiated On: 09/13/2019 1:28 PM Estimated Blood Loss: Estimated blood loss: none.
== END 2019-09-13 15:10 | disposition home or self-care (01) ==
LOC: M OPP 13:00
PROVIDERS: ATTEND Internal Medicine Gastroenterology
DX: K62.89 Other specified diseases of anus and rectum (principal); D49.0 Neoplasm of unspecified behavior of digestive system; K56.690 Other partial intestinal obstruction; D50.9 Iron deficiency anemia, unspecified; K57.30 Diverticulosis of large intestine without perforation or abscess without bleeding; R93.3 Abnormal findings on diagnostic imaging of other parts of digestive tract; K44.9 Diaphragmatic hernia without obstruction or gangrene; K31.89 Other diseases of stomach and duodenum; F17.210 Nicotine dependence, cigarettes, uncomplicated; Z79.82 Long term (current) use of aspirin; Z79.899 Other long term (current) drug therapy

== ENCOUNTER → 2019-09-18 | Outpatient (REF) | payer MEDICARE ==
[~2019-09-18] MED LIST changes: +ALBU83IN INH; +AMIO200T3 PO; +ATEN25TA PO; +ATOR1TAB19 PO; +CEFP500T PO; +DIGO0.123 PO; +FERR325T3 PO; +FURO20TA2 PO; +KLOR10TA76 PO; +LASI20TA3 PO; -LIDOCAINE 2% 100MG/5ML SDV (FOR ANES.) As Ordered ONE; +MUCI600T31 PO; -NS 1,000 ML IV ONE; +OLAN7.5T PO; +[UNRECOGNIZED DRUG - CODE] PO; -propofoL 200 MG/20 ML VIAL As Ordered ONE
[2019-10-16 00:57] LABS: BASO % 0.2 % (0.0-1.0); EOS % 0.5 % (0.0-3.0); HEMATOCRIT 41.2 % (42.0-52.0); HEMOGLOBIN 11.6 g/dl (13.5-17.5); LYMPH # 0.7 10^3/uL (1.5-5.0); LYMPH % 11.2 % (24.0-44.0); MEAN CORPUSCULAR HEMOGLOBIN 29.9 pg (27.0-33.0); MEAN CORPUSCULAR HGB CONC 28.2 g/dl (32.0-36.5); MEAN CORPUSCULAR VOLUME 106.2 fl (80.0-96.0); MONO # 0.3 10^3/uL (0.0-0.8); MONO % 5.1 % (0.0-5.0); NEUTROPHILS # 5.3 10^3/uL (1.5-8.5); NEUTROPHILS % 82.2 % (36.0-66.0); PLATELET COUNT, AUTOMATED 226 10^3/uL (150-450); RED BLOOD COUNT 3.88 10^6/uL (4.30-6.10); WHITE BLOOD COUNT 6.4 10^3/uL (4.0-10.0)
[2019-10-30 10:47] LABS: IRON (FE) 64 UG/DL (65-175); VITAMIN B12 LEVEL 1440 PG/ML (247-911)
== END ==
LOC: M LAB REF 08:12
PROVIDERS: ATTEND Family Medicine Addiction Medicine
DX: D50.0 Iron deficiency anemia secondary to blood loss (chronic) (principal)

== ENCOUNTER 2019-09-29 10:37 | Inpatient (IN) | payer MEDICARE ==
[~2019-09-29 10:37] MED LIST changes: -ALBU83IN INH; -AMIO200T3 PO; -ATEN25TA PO; -ATOR1TAB19 PO; -CEFP500T PO; -DIGO0.123 PO; -FERR325T3 PO; -FURO20TA2 PO; -KLOR10TA76 PO; -LASI20TA3 PO; -MUCI600T31 PO; -OLAN7.5T PO; -[UNRECOGNIZED DRUG - CODE] PO
[2019-09-29] MEDS ORDERED: ALBUTEROL SULFATE 2.5 MG/0.5 ML INH NEB SOLN ONE (20:00)
[2019-09-29] MEDS ORDERED: TAMSULOSIN 0.4 MG CAP As Ordered ONE (22:00)
[2019-09-29] MEDS ORDERED: DOCUSATE SODIUM 100 MG CAP As Ordered ONE (22:00)
[2019-09-29] MEDS ORDERED: FUROSEMIDE 20MG/2ML VIAL (J1940) As Ordered ONE (22:01)
[2019-09-29] MEDS ORDERED: atenoloL 50 MG TAB As Ordered ONE (22:01)
[2019-09-30] MEDS ORDERED: ZOSYN 3.375GM VIAL (J2543) As Ordered ONE ×5 (00:39→23:13)
[2019-09-30] MEDS ORDERED: methylPREDNISolone 40MG 1ML VIAL As Ordered ONE ×5 (01:18→23:14)
[2019-09-30] MEDS ORDERED: levETIRAcetam 250MG TABLET (KEPPRA) As Ordered ONE ×3 (01:40→19:43)
[2019-09-30] MEDS ORDERED: DEXTROSE 50% 50 ML SYRINGE As Ordered ONE (06:40)
[2019-09-30] MEDS ORDERED: atenoloL 50 MG TAB As Ordered ONE ×2 (08:04→19:44)
[2019-09-30] MEDS ORDERED: MAGNESIUM OXIDE 400 MG TAB (MAG-OX) As Ordered ONE (08:26)
[2019-09-30] MEDS ORDERED: DOCUSATE SODIUM 100 MG CAP As Ordered ONE (08:26)
[2019-09-30] MEDS ORDERED: PANTOPRAZOLE 40MG TAB (PROTONIX) As Ordered ONE (08:26)
[2019-09-30] MEDS ORDERED: SERTRALINE HCL 50 MG TAB As Ordered ONE (08:27)
[2019-09-30] MEDS ORDERED: FERROUS SULFATE 325MG TAB As Ordered ONE (08:27)
[2019-09-30] MEDS ORDERED: FOLIC ACID 1 MG TAB As Ordered ONE (08:27)
[2019-09-30] MEDS ORDERED: FUROSEMIDE 20 MG TAB As Ordered ONE ×2 (08:27→19:44)
[2019-09-30] MEDS ORDERED: ENOXAPARIN 40MG/0.4ML SYRINGE (J1650 PER 10MG) As Ordered ONE (11:17)
[2019-09-30] MEDS ORDERED: DIGOXIN INJ 0.5 MG/2 ML AMP (J1160) As Ordered ONE (14:21)
[2019-09-30] MEDS ORDERED: TAMSULOSIN 0.4 MG CAP As Ordered ONE (19:43)
[2019-09-30] MEDS ORDERED: ALBUTEROL SULFATE 2.5 MG/0.5 ML INH NEB SOLN ONE (20:00)
[2019-09-30] MEDS ORDERED: OLANZapine 5 MG TAB ONE (22:00)
[2019-10-01] MEDS ORDERED: ZOSYN 3.375GM VIAL (J2543) As Ordered ONE ×4 (05:49→17:03)
[2019-10-01] MEDS ORDERED: methylPREDNISolone 40MG 1ML VIAL As Ordered ONE ×2 (05:49→17:04)
[2019-10-01] MEDS ORDERED: levETIRAcetam 250MG TABLET (KEPPRA) As Ordered ONE ×2 (10:09→21:58)
[2019-10-01] MEDS ORDERED: ENOXAPARIN 40MG/0.4ML SYRINGE (J1650 PER 10MG) As Ordered ONE (10:09)
[2019-10-01] MEDS ORDERED: FUROSEMIDE 20 MG TAB As Ordered ONE ×2 (10:09→21:59)
[2019-10-01] MEDS ORDERED: MAGNESIUM OXIDE 400 MG TAB (MAG-OX) As Ordered ONE (10:09)
[2019-10-01] MEDS ORDERED: FOLIC ACID 1 MG TAB As Ordered ONE (10:10)
[2019-10-01] MEDS ORDERED: FERROUS SULFATE 325MG TAB As Ordered ONE (10:10)
[2019-10-01] MEDS ORDERED: SERTRALINE HCL 50 MG TAB As Ordered ONE (10:10)
[2019-10-01] MEDS ORDERED: PANTOPRAZOLE 40MG TAB (PROTONIX) As Ordered ONE (10:11)
[2019-10-01] MEDS ORDERED: ALBUTEROL SULFATE 2.5 MG/0.5 ML INH NEB SOLN ONE (20:00)
[2019-10-01] MEDS ORDERED: TAMSULOSIN 0.4 MG CAP As Ordered ONE (21:58)
[2019-10-01] MEDS ORDERED: DOCUSATE SODIUM 100 MG CAP As Ordered ONE (21:58)
[2019-10-02] MEDS ORDERED: ZOSYN 3.375GM VIAL (J2543) As Ordered ONE ×5 (00:35→23:38)
[2019-10-02] MEDS ORDERED: methylPREDNISolone 40MG 1ML VIAL As Ordered ONE ×2 (06:08→17:47)
[2019-10-02] MEDS ORDERED: DOCUSATE SODIUM 100 MG CAP As Ordered ONE ×2 (09:40→20:55)
[2019-10-02] MEDS ORDERED: levETIRAcetam 250MG TABLET (KEPPRA) As Ordered ONE ×2 (09:40→20:55)
[2019-10-02] MEDS ORDERED: PANTOPRAZOLE 40MG TAB (PROTONIX) As Ordered ONE ×2 (09:40→20:55)
[2019-10-02] MEDS ORDERED: ENOXAPARIN 40MG/0.4ML SYRINGE (J1650 PER 10MG) As Ordered ONE (09:40)
[2019-10-02] MEDS ORDERED: QUEtiapine FUMARATE 25 MG TAB As Ordered ONE (09:40)
[2019-10-02] MEDS ORDERED: MAGNESIUM OXIDE 400 MG TAB (MAG-OX) As Ordered ONE (09:41)
[2019-10-02] MEDS ORDERED: atenoloL 50 MG TAB As Ordered ONE ×2 (09:41→20:56)
[2019-10-02] MEDS ORDERED: FOLIC ACID 1 MG TAB As Ordered ONE (09:41)
[2019-10-02] MEDS ORDERED: FERROUS SULFATE 325MG TAB As Ordered ONE (09:42)
[2019-10-02] MEDS ORDERED: FUROSEMIDE 20 MG TAB As Ordered ONE ×2 (09:42→20:56)
[2019-10-02] MEDS ORDERED: OLANZapine 5 MG TAB ONE (13:00)
[2019-10-02] MEDS ORDERED: ALBUTEROL SULFATE 2.5 MG/0.5 ML INH NEB SOLN ONE (20:00)
[2019-10-02] MEDS ORDERED: TAMSULOSIN 0.4 MG CAP As Ordered ONE (20:55)
[2019-10-03] MEDS ORDERED: ZOSYN 3.375GM VIAL (J2543) As Ordered ONE ×3 (05:34→16:58)
[2019-10-03] MEDS ORDERED: methylPREDNISolone 40MG 1ML VIAL As Ordered ONE (05:34)
[2019-10-03] MEDS ORDERED: SERTRALINE HCL 50 MG TAB As Ordered ONE (09:14)
[2019-10-03] MEDS ORDERED: PANTOPRAZOLE 40MG TAB (PROTONIX) As Ordered ONE (09:14)
[2019-10-03] MEDS ORDERED: DOCUSATE SODIUM 100 MG CAP As Ordered ONE (09:14)
[2019-10-03] MEDS ORDERED: ENOXAPARIN 40MG/0.4ML SYRINGE (J1650 PER 10MG) As Ordered ONE (09:15)
[2019-10-03] MEDS ORDERED: atenoloL 50 MG TAB As Ordered ONE ×2 (09:15→14:26)
[2019-10-03] MEDS ORDERED: levETIRAcetam 250MG TABLET (KEPPRA) As Ordered ONE (09:15)
[2019-10-03] MEDS ORDERED: FUROSEMIDE 20 MG TAB As Ordered ONE (09:15)
[2019-10-03] MEDS ORDERED: FOLIC ACID 1 MG TAB As Ordered ONE (09:15)
[2019-10-03] MEDS ORDERED: MAGNESIUM OXIDE 400 MG TAB (MAG-OX) As Ordered ONE (09:15)
[2019-10-03] MEDS ORDERED: FERROUS SULFATE 325MG TAB As Ordered ONE (09:16)
[2019-10-03] MEDS ORDERED: PILL CUTTER 1 EACH XX PRN (12:45)
[2019-10-03] MEDS ORDERED: ONDANSETRON 4MG/2ML VIAL IV PRN (13:15)
[2019-10-03] MEDS ORDERED: ACETAMINOPHEN TAB 650MG DOSE (2X325MG) PO PRN (13:15)
[2019-10-03] MEDS ORDERED: ALBUTEROL SULFATE 2.5 MG/0.5 ML INH NEB SOLN INH PRN (13:15)
[2019-10-03] MEDS ORDERED: ALBU83IN INH (13:41)
[2019-10-03] MEDS ORDERED: ATEN50TA2 PO (13:41)
[2019-10-03 20:00] VITALS: BP 123/60
[2019-10-03] MEDS: ALBUTEROL SULFATE 2.5 MG/0.5 ML INH NEB SOLN INH SCH (20:00)
[2019-10-03] MEDS: ADVAIR HFA 230/21MCG INHALER INH SCH (20:23)
[2019-10-03] MEDS: levETIRAcetam 250MG TABLET (KEPPRA) PO SCH (20:24)
[2019-10-03] MEDS: DOCUSATE SODIUM 100 MG CAP PO SCH (20:24)
[2019-10-03] MEDS: TAMSULOSIN 0.4 MG CAP PO SCH (20:24)
[2019-10-03] MEDS ORDERED: FUROSEMIDE 20 MG TAB PO SCH (21:00)
[2019-10-03] MEDS ORDERED: PANTOPRAZOLE 40MG TAB (PROTONIX) PO SCH (21:00)
[2019-10-03 21:07] LABS: BASO % 0.2 % (0.0-1.0); EOS % 0.2 % (0.0-3.0); HEMATOCRIT 37.9 % (42.0-52.0); HEMOGLOBIN 10.9 g/dl (13.5-17.5); LYMPH # 0.6 10^3/uL (1.5-5.0); LYMPH % 8.7 % (24.0-44.0); MEAN CORPUSCULAR HEMOGLOBIN 29.6 pg (27.0-33.0); MEAN CORPUSCULAR HGB CONC 28.8 g/dl (32.0-36.5); MONO # 0.5 10^3/uL (0.0-0.8); MONO % 8.3 % (0.0-5.0); NEUTROPHILS # 5.4 10^3/uL (1.5-8.5); NEUTROPHILS % 82.3 % (36.0-66.0); PLATELET COUNT, AUTOMATED 159 10^3/uL (150-450); RED BLOOD COUNT 3.68 10^6/uL (4.30-6.10); WHITE BLOOD COUNT 6.5 10^3/uL (4.0-10.0)
[2019-10-03] MEDS: atenoloL 50 MG TAB PO SCH (22:09)
[2019-10-03] MEDS: OLANZapine 10 MG TAB PO SCH (22:22)
[2019-10-04] VITALS (7 sets, daily range): BP systolic 114–140; BP diastolic 55–92
[2019-10-04] MEDS: ALBUTEROL SULFATE 2.5 MG/0.5 ML INH NEB SOLN INH SCH ×3 (00:43→14:00)
[2019-10-04] MEDS: PIPERACILLIN/TAZOBACTAM SOD 3.375 GM in D5W MINI-BAG PLUS 50 ML IV SCH ×3 (01:00→12:45)
[2019-10-04] MEDS ORDERED: methylPREDNISolone 125MG 2ML VIAL IV SCH (06:00)
[2019-10-04 06:13] LABS: EOS % 0.7 % (0.0-3.0); HEMATOCRIT 36.8 % (42.0-52.0); HEMOGLOBIN 10.6 g/dl (13.5-17.5); LYMPH # 0.7 10^3/uL (1.5-5.0); LYMPH % 12.7 % (24.0-44.0); MEAN CORPUSCULAR HEMOGLOBIN 29.6 pg (27.0-33.0); MEAN CORPUSCULAR HGB CONC 28.8 g/dl (32.0-36.5); MEAN CORPUSCULAR VOLUME 102.8 fl (80.0-96.0); MONO # 0.5 10^3/uL (0.0-0.8); MONO % 8.3 % (0.0-5.0); NEUTROPHILS # 4.3 10^3/uL (1.5-8.5); NEUTROPHILS % 77.9 % (36.0-66.0); PLATELET COUNT, AUTOMATED 146 10^3/uL (150-450); RED BLOOD COUNT 3.58 10^6/uL (4.30-6.10); WHITE BLOOD COUNT 5.5 10^3/uL (4.0-10.0)
[2019-10-04 06:27] LABS: ABG BASE EXCESS 28.7 (-2.0-2.0); ABG HCO3 58.9 MEQ/L (22.0-26.0); ABG O2 SATURATION 94.1 % (95.0-99.0); ABG PARTIAL PRESSURE CO2 96.9 mmHg (35.0-45.0); ABG STANDARD HCO3 54.3 MEQ/L (22.0-26.0); ABG TOTAL CO2 61.9 MEQ/L (23.0-31.0); ABG pH (ARTERIAL) 7.402 UNITS (7.350-7.450)
[2019-10-04] MEDS: atenoloL 50 MG TAB PO SCH ×2 (06:36→20:41)
[2019-10-04 06:53] LABS: BLOOD UREA NITROGEN 19 MG/DL (7-18); CHLORIDE LEVEL 87 MEQ/L (98-107); CREATININE FOR GFR 0.72 MG/DL (0.70-1.30); GLOMERULAR FILTRATION RATE > 60.0 (>42); GLUCOSE, FASTING 77 MG/DL (70-100); POTASSIUM SERUM 3.8 MEQ/L (3.5-5.1); SODIUM LEVEL 145 MEQ/L (136-145)
[2019-10-04 07:02] LABS: CARBON DIOXIDE LEVEL 64 MEQ/L (21-32)
[2019-10-04] MEDS: TIOTROPIUM INHALER/CAPSULE (SPIRIVA) INH SCH (08:28)
[2019-10-04] MEDS: ADVAIR HFA 230/21MCG INHALER INH SCH ×2 (08:29→19:40)
[2019-10-04] MEDS: levETIRAcetam 250MG TABLET (KEPPRA) PO SCH ×2 (08:48→20:41)
[2019-10-04] MEDS: SERTRALINE HCL 50 MG TAB PO SCH (08:48)
[2019-10-04] MEDS: FOLIC ACID 1 MG TAB PO SCH (08:48)
[2019-10-04] MEDS: PANTOPRAZOLE 40MG TAB (PROTONIX) PO SCH (08:48)
[2019-10-04] MEDS: predniSONE 20 MG TAB PO SCH (08:48)
[2019-10-04] MEDS: FERROUS SULFATE 325MG TAB PO SCH (08:48)
[2019-10-04] MEDS: MAGNESIUM OXIDE 400 MG TAB (MAG-OX) PO SCH (08:48)
[2019-10-04] MEDS: ENOXAPARIN 40MG/0.4ML SYRINGE (J1650 PER 10MG) SC SCH (08:49)
[2019-10-04] MEDS: DOCUSATE SODIUM 100 MG CAP PO SCH ×2 (08:51→20:40)
[2019-10-04] MEDS ORDERED: FUROSEMIDE 20 MG TAB PO SCH (09:00)
[2019-10-04] MEDS ORDERED: SLF 3 ML SYR IV PRN (12:00)
[2019-10-04] MEDS: SLF 3 ML SYR IV SCH ×2 (12:45→20:41)
--- NOTE | 2019-10-04 15:31 | IPNPDOC ---
Subjective Date Seen The patient was seen on 10/04/19. Subjective Chief Complaint/HPI 74 y.o M with PMH of CHFpEF, COPD, HTN, chronic urinary retention presented for concerns of SOB and was managed for acute on chronic respiratory failure Events since last encounter no overnight events. on 3L NC this AM - resting comfortably General: Reports: Normal Appetite; Denies: Chills, Night Sweats, Fatigue, Malaise Constitutional: Denies: Chills, Fever, Night Sweats Eyes: Denies: Pain, Vision change ENT: Denies: Head Aches, Ear Pain, Dysphagia Skin: Denies: Rash, Lesions, Breakdown Pulmonary: Denies: Dyspnea, Cough Cardiovascular: Denies: Chest Pain, Palpitations, Orthopnea, Paroxysmal Noc. Dyspnea, Lt Headedness Gastrointestinal: Denies: Nausea, Vomiting, Abdominal Pain, Diarrhea, Constipation Genitourinary: Denies: Dysuria, Frequency, Incontinence, Retention Hematologic: Denies: Bruising, Bleeding Excessively Musculoskeletal: Denies: Neck Pain, Back Pain, Joint Pain, Muscle Pain, Spasms Neurological: Denies: Weakness, Numbness, Change in speech, Confusion Psych: Reports: Mood Normal; Denies: Depression, Memory Issues Objective Physical Examination General Exam: Positive: Alert, No Acute Distress Eye Exam: Positive: PERRLA, Conjunctiva & lids normal, EOMI; Negative: Sclera icteric ENT Exam: Positive: Atraumatic, Mucous membr. moist/pink, Pharynx Normal Neck Exam: Positive: Supple; Negative: JVD, thyromegaly Chest Exam: Positive: Clear to auscultation, Normal air movement Heart Exam: Positive: Rate Normal, Regular Rhythm, Normal S1, Normal S2; Negative: Murmurs, Rubs Telemetry: Positive: No significant arrhythmia Abdomen Exam: Positive: Normal bowel sounds, Soft; Negative: Tenderness, Hepatospenomegaly Male Exam: Positive: Normal Genital Exam Extremity Exam: Positive: Normal pulses; Negative: Clubbing, Cyanosis, Edema Skin Exam: Positive: Nl turgor and temperature; Negative: Rash, Breakdown Neuro Exam: Positive: Normal Gait, Normal Speech, Cranial Nerves 3-12 NL, Reflexes 2+ Psych Exam: Positive: Mental status NL, Mood NL, Oriented x 3 RAD Interpretation STUDY: CT Chest Rad Actions: Report Reviewed Assessment /Plan Assessment 74 y/o M with PMH of COPD admitted for acute on chronic respiratory failure. respiratory status not optimized 1. Acute on chronic respiratory faiure - AM ABG reviewed. hypercarbia present- chronic; compensating - will reassess home o2 needs; suspecting will need home that 3L. -Continue BiPAP as tolerated during the day and at night 2. Left lobar pneumonia -will deescalate antibiotics to rocephin and azithromycin 3. COPD exacerbation -continue prednisone 40mg daily; pneumonia tx as above 4. Urinary retention - continue regimen 5. Hx of seizure disorder -continue home keppra Plan/VTE VTE Prophylaxis Ordered?: Yes Plan IVF: Discontinue Diet: Continue Current Activity: Continue Current Therapy: PT, OT, Other Therapy (home oxygen assessment) Respiratory: Increase Oxygen Anticipated Discharge: Home With Services, Other Anticipated D/C (Pulmonary rehab or PT/OT for COPD needs) VS, I&O, 24H, Fishbone Vital Signs/I&O Vital Signs Date Time Temp Pulse Resp B/P (MAP) Pulse Ox O2 Delivery O2 Flow Rate FiO2 10/04/19 14:00 Nasal Cannula 4.0 10/04/19 12:00 97.5 61 20 140/92 (108) 98 I&O- Last 24 Hours up to 6 AM 10/04/19 06:00 Intake Total 360 ml Output Total 1425 ml Balance -1065 ml Laboratory Data 24H LABS Laboratory Tests 2 10/04/19 05:42: Immature Granulocyte % (Auto) 0.4, Neutrophils (%) (Auto) 77.9H, Lymphocytes (%) (Auto) 12.7L, Monocytes (%) (Auto) 8.3H, Eosinophils (%) (Auto) 0.7, Basophils (%) (Auto) 0.0, Neutrophils # (Auto) 4.3, Lymphocytes # (Auto) 0.7L, Monocytes # (Auto) 0.5, Eosinophils # (Auto) 0.0, Basophils # (Auto) 0.0, Nucleated Red Blood Cells % (auto) 0.0, Anion Gap , Glomerular Filtration Rate > 60.0, Calcium Level 9.0 10/04/19 06:00: Blood Gas Bicarbonate Standard 54.3H, Arterial Blood pH 7.402, Arterial Blood Partial Pressure CO2 96.9*H, Arterial Blood Partial Pressure O2 70.0L, Arterial Blood Total CO2 61.9H, Arterial Blood HCO3 58.9H, Arterial Blood Base Excess 28.7H, Arterial Blood Oxygen Saturation 94.1L CBC/BMP Laboratory Tests 10/04/19 05:42 CATRACHO PEREZ DO Oct 04, 2019 15:07
[2019-10-04] MEDS: cefTRIAXone SOD 1 GM in D5W MINI-BAG PLUS 50 ML IV SCH (17:26)
[2019-10-04] MEDS: AZITHROMYCIN 250MG TABLET PO SCH (17:52)
[2019-10-04] MEDS: TAMSULOSIN 0.4 MG CAP PO SCH (20:40)
[2019-10-04] MEDS: guaiFENesin ER 600 MG TAB PO SCH (20:41)
[2019-10-04] MEDS: OLANZapine 10 MG TAB PO SCH (20:41)
[2019-10-05] VITALS: BP 120/58
[2019-10-05] MEDS: ALBUTEROL SULFATE 2.5 MG/0.5 ML INH NEB SOLN INH SCH ×4 (01:26→20:00)
[2019-10-05 04:00] VITALS: BP 146/78
[2019-10-05] MEDS: SLF 3 ML SYR IV SCH ×3 (06:04→20:17)
[2019-10-05] MEDS: TIOTROPIUM INHALER/CAPSULE (SPIRIVA) INH SCH (07:09)
[2019-10-05] MEDS: ADVAIR HFA 230/21MCG INHALER INH SCH ×2 (07:09→20:29)
[2019-10-05 08:00] VITALS: BP 130/61
[2019-10-05] MEDS: FOLIC ACID 1 MG TAB PO SCH (08:08)
[2019-10-05] MEDS: MAGNESIUM OXIDE 400 MG TAB (MAG-OX) PO SCH (08:08)
[2019-10-05] MEDS: atenoloL 50 MG TAB PO SCH ×2 (08:08→20:17)
[2019-10-05] MEDS: levETIRAcetam 250MG TABLET (KEPPRA) PO SCH ×2 (08:08→20:17)
[2019-10-05] MEDS: FERROUS SULFATE 325MG TAB PO SCH (08:08)
[2019-10-05] MEDS: DOCUSATE SODIUM 100 MG CAP PO SCH ×2 (08:09→20:16)
[2019-10-05] MEDS: PANTOPRAZOLE 40MG TAB (PROTONIX) PO SCH (08:09)
[2019-10-05] MEDS: predniSONE 20 MG TAB PO SCH (08:09)
[2019-10-05] MEDS: SERTRALINE HCL 50 MG TAB PO SCH (08:09)
[2019-10-05] MEDS: ENOXAPARIN 40MG/0.4ML SYRINGE (J1650 PER 10MG) SC SCH (08:09)
[2019-10-05] MEDS: guaiFENesin ER 600 MG TAB PO SCH ×2 (08:09→20:17)
[2019-10-05 08:28] LABS: HEMATOCRIT 35.4 % (42.0-52.0); HEMOGLOBIN 10.5 g/dl (13.5-17.5); LYMPH # 0.5 10^3/uL (1.5-5.0); LYMPH % 7.6 % (24.0-44.0); MEAN CORPUSCULAR HEMOGLOBIN 30.2 pg (27.0-33.0); MEAN CORPUSCULAR HGB CONC 29.7 g/dl (32.0-36.5); MEAN CORPUSCULAR VOLUME 101.7 fl (80.0-96.0); MONO # 0.5 10^3/uL (0.0-0.8); MONO % 7.4 % (0.0-5.0); NEUTROPHILS # 5.6 10^3/uL (1.5-8.5); NEUTROPHILS % 84.4 % (36.0-66.0); PLATELET COUNT, AUTOMATED 156 10^3/uL (150-450); RED BLOOD COUNT 3.48 10^6/uL (4.30-6.10); WHITE BLOOD COUNT 6.6 10^3/uL (4.0-10.0)
[2019-10-05] MEDS ORDERED: FUROSEMIDE 20MG/2ML VIAL (J1940) IV ONE (09:30)
[2019-10-05 12:00] VITALS: BP 148/70
[2019-10-05 12:25] LABS: BASO % 0.1 % (0.0-1.0); EOS % 0.3 % (0.0-3.0); HEMATOCRIT 38.3 % (42.0-52.0); LYMPH # 0.4 10^3/uL (1.5-5.0); LYMPH % 4.4 % (24.0-44.0); MEAN CORPUSCULAR HEMOGLOBIN 29.6 pg (27.0-33.0); MEAN CORPUSCULAR HGB CONC 28.7 g/dl (32.0-36.5); MONO # 0.2 10^3/uL (0.0-0.8); MONO % 2.8 % (0.0-5.0); NEUTROPHILS # 7.3 10^3/uL (1.5-8.5); PLATELET COUNT, AUTOMATED 160 10^3/uL (150-450); RED BLOOD COUNT 3.72 10^6/uL (4.30-6.10); WHITE BLOOD COUNT 7.9 10^3/uL (4.0-10.0)
[2019-10-05 13:05] LABS: BLOOD UREA NITROGEN 17 MG/DL (7-18); CALCIUM LEVEL 8.8 MG/DL (8.8-10.2); CHLORIDE LEVEL 87 MEQ/L (98-107); CREATININE FOR GFR 0.75 MG/DL (0.70-1.30); GLOMERULAR FILTRATION RATE > 60.0 (>42); GLUCOSE, FASTING 97 MG/DL (70-100); POTASSIUM SERUM 4.8 MEQ/L (3.5-5.1); SODIUM LEVEL 141 MEQ/L (136-145)
[2019-10-05 13:06] LABS: CARBON DIOXIDE LEVEL 61 mmol/L (20-29)
[2019-10-05 16:00] VITALS: BP 126/60
[2019-10-05] MEDS: cefTRIAXone SOD 1 GM in D5W MINI-BAG PLUS 50 ML IV SCH (16:59)
[2019-10-05] MEDS: AZITHROMYCIN 250MG TABLET PO SCH (16:59)
--- NOTE | 2019-10-05 17:04 | IPNPDOC ---
Subjective Date Seen The patient was seen on 10/05/19. Subjective Chief Complaint/HPI 74 y/o M with PMH of COPD admitted for acute on chronic respiratory failure. respiratory status not optimized Events since last encounter no overnight events. on NC 3L General: Reports: Normal Appetite; Denies: Chills, Night Sweats, Fatigue, Malaise Constitutional: Denies: Chills, Fever, Night Sweats Eyes: Denies: Pain, Vision change ENT: Denies: Head Aches, Ear Pain, Dysphagia Skin: Denies: Rash, Lesions, Breakdown Pulmonary: Reports: Dyspnea Cardiovascular: Denies: Chest Pain, Palpitations, Orthopnea, Paroxysmal Noc. Dyspnea, Lt Headedness Gastrointestinal: Denies: Nausea, Vomiting, Abdominal Pain, Diarrhea, Constipation Genitourinary: Denies: Dysuria, Frequency, Incontinence, Retention Hematologic: Denies: Bruising, Bleeding Excessively Musculoskeletal: Denies: Neck Pain, Back Pain, Joint Pain, Muscle Pain, Spasms Neurological: Denies: Weakness, Numbness, Change in speech, Confusion Psych: Reports: Mood Normal; Denies: Depression, Memory Issues Objective Physical Examination General Exam: Positive: Alert, No Acute Distress Eye Exam: Positive: PERRLA, Conjunctiva & lids normal, EOMI; Negative: Sclera icteric ENT Exam: Positive: Atraumatic, Mucous membr. moist/pink, Pharynx Normal Neck Exam: Positive: Supple; Negative: JVD, thyromegaly Chest Exam: Positive: Normal air movement, Rhonchi Heart Exam: Positive: Rate Normal, Regular Rhythm, Normal S1, Normal S2; Negative: Murmurs, Rubs Telemetry: Positive: No significant arrhythmia Abdomen Exam: Positive: Normal bowel sounds, Soft, Tenderness Male Exam: Positive: Normal Genital Exam Extremity Exam: Positive: Normal pulses; Negative: Clubbing, Cyanosis, Edema Skin Exam: Positive: Nl turgor and temperature; Negative: Rash, Breakdown Neuro Exam: Positive: Normal Gait, Normal Speech, Cranial Nerves 3-12 NL, Reflexes 2+ Psych Exam: Positive: Mental status NL, Mood NL, Oriented x 3 Assessment /Plan Assessment 74 y/o M with PMH of COPD admitted for acute on chronic respiratory failure. respiratory status not optimized 1. Acute on chronic respiratory faiure - will add lasix 20mg IV today and restart PO asix -Continue BiPAP as tolerated during the day and at night 2. Left lobar pneumonia -on rocephin and azithromycin 3. COPD exacerbation -continue prednisone 40mg daily; pneumonia tx as above 4. Urinary retention - continue regimen 5. Hx of seizure disorder -continue home keppra Plan/VTE VTE Prophylaxis Ordered?: Yes Plan IVF: Discontinue Diet: Continue Current Activity: Continue Current Therapy: PT, OT, Other Therapy (home oxygen assessment) Respiratory: Increase Oxygen Anticipated Discharge: Home With Services, Other Anticipated D/C (Pulmonary rehab or PT/OT for COPD needs) VS, I&O, 24H, Fishbone Vital Signs/I&O Vital Signs Date Time Temp Pulse Resp B/P (MAP) Pulse Ox O2 Delivery O2 Flow Rate FiO2 10/05/19 16:00 3.0 10/05/19 12:00 97.5 56 20 148/70 (96) 93 Nasal Cannula I&O- Last 24 Hours up to 6 AM 10/05/19 06:00 Intake Total 950 ml Output Total 1300 ml Balance -350 ml Laboratory Data 24H LABS Laboratory Tests 2 10/05/19 12:07: Immature Granulocyte % (Auto) 0.4, Neutrophils (%) (Auto) 92.0H, Lymphocytes (%) (Auto) 4.4L, Monocytes (%) (Auto) 2.8, Eosinophils (%) (Auto) 0.3, Basophils (%) (Auto) 0.1, Neutrophils # (Auto) 7.3, Lymphocytes # (Auto) 0.4L, Monocytes # (Auto) 0.2, Eosinophils # (Auto) 0.0, Basophils # (Auto) 0.0, Nucleated Red Blood Cells % (auto) 0.0, Anion Gap , Glomerular Filtration Rate > 60.0, Calcium Level 8.8 CBC/BMP Laboratory Tests 10/05/19 12:07 CATRACHO PEREZ DO Oct 05, 2019 17:04
[2019-10-05 20:00] VITALS: BP 118/74
[2019-10-05] MEDS: TAMSULOSIN 0.4 MG CAP PO SCH (20:17)
[2019-10-05] MEDS: OLANZapine 10 MG TAB PO SCH (20:17)
[2019-10-06] VITALS (8 sets, daily range): BP systolic 99–155; BP diastolic 49–70
[2019-10-06] MEDS: ALBUTEROL SULFATE 2.5 MG/0.5 ML INH NEB SOLN INH SCH ×4 (03:34→20:00)
[2019-10-06] MEDS: SLF 3 ML SYR IV SCH ×3 (06:03→22:00)
[2019-10-06] MEDS: TIOTROPIUM INHALER/CAPSULE (SPIRIVA) INH SCH (08:27)
[2019-10-06] MEDS: ADVAIR HFA 230/21MCG INHALER INH SCH ×2 (08:29→20:39)
[2019-10-06] MEDS: predniSONE 20 MG TAB PO SCH (09:08)
[2019-10-06] MEDS: FERROUS SULFATE 325MG TAB PO SCH (09:09)
[2019-10-06] MEDS: FOLIC ACID 1 MG TAB PO SCH (09:09)
[2019-10-06] MEDS: PANTOPRAZOLE 40MG TAB (PROTONIX) PO SCH (09:09)
[2019-10-06] MEDS: levETIRAcetam 250MG TABLET (KEPPRA) PO SCH ×2 (09:09→20:09)
[2019-10-06] MEDS: guaiFENesin ER 600 MG TAB PO SCH ×2 (09:09→20:09)
[2019-10-06] MEDS: SERTRALINE HCL 50 MG TAB PO SCH (09:09)
[2019-10-06] MEDS: DOCUSATE SODIUM 100 MG CAP PO SCH ×2 (09:09→20:08)
[2019-10-06] MEDS: MAGNESIUM OXIDE 400 MG TAB (MAG-OX) PO SCH (09:09)
[2019-10-06] MEDS: atenoloL 50 MG TAB PO SCH ×2 (09:12→20:09)
[2019-10-06] MEDS: ENOXAPARIN 40MG/0.4ML SYRINGE (J1650 PER 10MG) SC SCH (09:14)
[2019-10-06] MEDS ORDERED: [UNRECOGNIZED DRUG - CODE] PO (10:24)
[2019-10-06] MEDS ORDERED: FURO20TA2 PO (10:33)
[2019-10-06] MEDS ORDERED: FERR325T18 PO (10:33)
[2019-10-06] MEDS ORDERED: CEFP500T PO (10:37)
[2019-10-06] MEDS ORDERED: LASI20TA3 PO (10:42)
[2019-10-06] MEDS ORDERED: FERR325T3 PO (10:43)
--- NOTE | 2019-10-06 13:57 | IPNPDOC ---
Subjective Date Seen The patient was seen on 10/06/19. Subjective Chief Complaint/HPI SOB Events since last encounter dyspnea with exertion General: Reports: Normal Appetite; Denies: Chills, Night Sweats, Fatigue, Malaise Constitutional: Denies: Chills, Fever, Night Sweats Eyes: Denies: Pain, Vision change ENT: Denies: Head Aches, Ear Pain, Dysphagia Skin: Denies: Rash, Lesions, Breakdown Pulmonary: Reports: Dyspnea; Denies: Cough Cardiovascular: Denies: Chest Pain, Palpitations, Orthopnea, Paroxysmal Noc. Dyspnea, Lt Headedness Gastrointestinal: Denies: Nausea, Vomiting, Abdominal Pain, Diarrhea, Constipation Genitourinary: Denies: Dysuria, Frequency, Incontinence, Retention Hematologic: Denies: Bruising, Bleeding Excessively Musculoskeletal: Denies: Neck Pain, Back Pain, Joint Pain, Muscle Pain, Spasms Neurological: Denies: Weakness, Numbness, Change in speech, Confusion Psych: Reports: Mood Normal; Denies: Depression, Memory Issues Objective Physical Examination General Exam: Positive: Alert, No Acute Distress Eye Exam: Positive: PERRLA, Conjunctiva & lids normal, EOMI; Negative: Sclera icteric ENT Exam: Positive: Atraumatic, Mucous membr. moist/pink, Pharynx Normal Neck Exam: Positive: Supple; Negative: JVD, thyromegaly Chest Exam: Positive: Normal air movement, Rhonchi Heart Exam: Positive: Rate Normal, Regular Rhythm, Normal S1, Normal S2; Negative: Murmurs, Rubs Telemetry: Positive: No significant arrhythmia Abdomen Exam: Positive: Normal bowel sounds, Soft, Tenderness Male Exam: Positive: Normal Genital Exam Extremity Exam: Positive: Normal pulses; Negative: Clubbing, Cyanosis, Edema Skin Exam: Positive: Nl turgor and temperature; Negative: Rash, Breakdown Neuro Exam: Positive: Normal Gait, Normal Speech, Cranial Nerves 3-12 NL, Reflexes 2+ Psych Exam: Positive: Mental status NL, Mood NL, Oriented x 3 Assessment /Plan Assessment 74 y/o M with PMH of COPD admitted for acute on chronic respiratory failure. respiratory status not optimized 1. Acute on chronic respiratory faiure - continue lasix 20mg daily - will get CXR and pending results, will consider getting echo -Continue BiPAP as tolerated during the day and at night 2. Left lobar pneumonia -on rocephin and azithromycin 3. COPD exacerbation -continue prednisone 40mg daily; pneumonia tx as above 4. Urinary retention - continue regimen 5. Hx of seizure disorder -continue home keppra Plan/VTE VTE Prophylaxis Ordered?: Yes Plan IVF: Discontinue Diet: Continue Current Activity: Continue Current Therapy: PT, OT, Home Safety Eval, Other Therapy (home oxygen assessment) Respiratory: Increase Oxygen, Increase Therapy Anticipated Discharge: Home With Services, Other Anticipated D/C (Pulmonary rehab or PT/OT for COPD needs) VS, I&O, 24H, Fishbone Vital Signs/I&O Vital Signs Date Time Temp Pulse Resp B/P (MAP) Pulse Ox O2 Delivery O2 Flow Rate FiO2 10/06/19 12:00 96.7 54 18 155/69 (97) 95 Nasal Cannula 3.0 I&O- Last 24 Hours up to 6 AM 10/06/19 06:00 Intake Total 1670 ml Output Total 1000 ml Balance 670 ml CATRACHO PEREZ DO Oct 06, 2019 13:57
--- NOTE | 2019-10-06 15:03 | REPVR ---
PROCEDURE INFORMATION: Exam: XR Chest, 2 Views Exam date and time: 10/06/2019 2:26 PM Age: 74 years old Clinical indication: Shortness of breath TECHNIQUE: Imaging protocol: XR of the chest Views: 2 views. COMPARISON: CR PORTABLE CHEST X-RAY 08/24/2019 11:09 PM FINDINGS: Lungs: Emphysematous change, interstitial prominence, and trace basilar airspace disease. Pleural space: Small pleural effusions, left greater than right. Heart/Mediastinum: No cardiomegaly. Vasculature: Calcification of the thoracic aorta. Bones/joints: Osteopenia and degenerative change. IMPRESSION: 1. Emphysematous change, interstitial prominence, and trace basilar airspace disease. 2. Small pleural effusions, left greater than right. Electronically signed by: Torres Rainey On 10/06/2019 15:03:54 PM
[2019-10-06] MEDS: AZITHROMYCIN 250MG TABLET PO SCH (17:18)
[2019-10-06] MEDS: cefTRIAXone SOD 1 GM in D5W MINI-BAG PLUS 50 ML IV SCH (17:18)
[2019-10-06] MEDS: OLANZapine 10 MG TAB PO SCH (20:08)
[2019-10-06] MEDS: TAMSULOSIN 0.4 MG CAP PO SCH (20:09)
[2019-10-07] MEDS: SLF 3 ML SYR IV SCH ×3 (05:07→20:45)
[2019-10-07 06:00] VITALS: BP 109/53
[2019-10-07] MEDS: ENOXAPARIN 40MG/0.4ML SYRINGE (J1650 PER 10MG) SC SCH (07:56)
[2019-10-07] MEDS: SERTRALINE HCL 50 MG TAB PO SCH (07:57)
[2019-10-07] MEDS: MAGNESIUM OXIDE 400 MG TAB (MAG-OX) PO SCH (07:57)
[2019-10-07] MEDS: levETIRAcetam 250MG TABLET (KEPPRA) PO SCH ×2 (07:57→20:42)
[2019-10-07] MEDS: FERROUS SULFATE 325MG TAB PO SCH (07:57)
[2019-10-07] MEDS: DOCUSATE SODIUM 100 MG CAP PO SCH ×2 (07:57→20:42)
[2019-10-07] MEDS: PANTOPRAZOLE 40MG TAB (PROTONIX) PO SCH (07:58)
[2019-10-07] MEDS: predniSONE 20 MG TAB PO SCH (07:58)
[2019-10-07] MEDS: FUROSEMIDE 20 MG TAB PO SCH (07:58)
[2019-10-07] MEDS: FOLIC ACID 1 MG TAB PO SCH (07:58)
[2019-10-07] MEDS: guaiFENesin ER 600 MG TAB PO SCH ×2 (07:58→20:42)
[2019-10-07] MEDS: atenoloL 50 MG TAB PO SCH ×2 (07:59→20:43)
[2019-10-07] MEDS: ALBUTEROL SULFATE 2.5 MG/0.5 ML INH NEB SOLN INH SCH ×3 (08:00→20:00)
[2019-10-07] MEDS: TIOTROPIUM INHALER/CAPSULE (SPIRIVA) INH SCH (08:46)
[2019-10-07] MEDS: ADVAIR HFA 230/21MCG INHALER INH SCH ×2 (08:47→20:11)
[2019-10-07 14:00] VITALS: BP 140/70
[2019-10-07] MEDS: cefTRIAXone SOD 1 GM in D5W MINI-BAG PLUS 50 ML IV SCH (17:11)
[2019-10-07] MEDS: AZITHROMYCIN 250MG TABLET PO SCH (17:59)
[2019-10-07] MEDS: TAMSULOSIN 0.4 MG CAP PO SCH (20:42)
[2019-10-07] MEDS: OLANZapine 10 MG TAB PO SCH (20:43)
[2019-10-07 22:00] VITALS: BP 132/64
[2019-10-07 23:07] LABS: BLOOD UREA NITROGEN 18 MG/DL (7-18); CALCIUM LEVEL 8.4 MG/DL (8.8-10.2); CHLORIDE LEVEL 88 MEQ/L (98-107); CREATININE FOR GFR 0.85 MG/DL (0.70-1.30); GLOMERULAR FILTRATION RATE > 60.0 (>42); GLUCOSE, FASTING 75 MG/DL (70-100); POTASSIUM SERUM 3.8 MEQ/L (3.5-5.1); SODIUM LEVEL 144 MEQ/L (136-145)
[2019-10-07 23:12] LABS: CARBON DIOXIDE LEVEL 64 MEQ/L (21-32)
[2019-10-07 23:27] LABS: ABG pH (ARTERIAL) 7.338 UNITS (7.350-7.450)
[2019-10-07 23:28] LABS: ABG BASE EXCESS 28.8 (-2.0-2.0); ABG HCO3 60.8 MEQ/L (22.0-26.0); ABG PARTIAL PRESSURE CO2 115.8 mmHg (35.0-45.0); ABG PARTIAL PRESSURE O2 63.5 mmHg (75.0-100.0); ABG TOTAL CO2 64.3 MEQ/L (23.0-31.0)
[2019-10-07 23:29] LABS: ABG O2 SATURATION 91.9 % (95.0-99.0)
[2019-10-08] MEDS: ALBUTEROL SULFATE 2.5 MG/0.5 ML INH NEB SOLN INH SCH ×4 (00:40→19:44)
[2019-10-08] MEDS: SLF 3 ML SYR IV SCH ×3 (05:51→21:12)
[2019-10-08 06:00] VITALS: BP 138/65
[2019-10-08] MEDS: TIOTROPIUM INHALER/CAPSULE (SPIRIVA) INH SCH (08:08)
[2019-10-08] MEDS: ADVAIR HFA 230/21MCG INHALER INH SCH ×2 (08:08→19:43)
[2019-10-08] MEDS: PANTOPRAZOLE 40MG TAB (PROTONIX) PO SCH (08:47)
[2019-10-08] MEDS: SERTRALINE HCL 50 MG TAB PO SCH (08:47)
[2019-10-08] MEDS: FUROSEMIDE 20 MG TAB PO SCH (08:47)
[2019-10-08] MEDS: FERROUS SULFATE 325MG TAB PO SCH (08:47)
[2019-10-08] MEDS: ENOXAPARIN 40MG/0.4ML SYRINGE (J1650 PER 10MG) SC SCH (08:47)
[2019-10-08] MEDS: MAGNESIUM OXIDE 400 MG TAB (MAG-OX) PO SCH (08:47)
[2019-10-08] MEDS: FOLIC ACID 1 MG TAB PO SCH (08:48)
[2019-10-08] MEDS: DOCUSATE SODIUM 100 MG CAP PO SCH ×2 (08:48→21:10)
[2019-10-08] MEDS: levETIRAcetam 250MG TABLET (KEPPRA) PO SCH ×2 (08:48→21:10)
[2019-10-08] MEDS: atenoloL 50 MG TAB PO SCH ×2 (08:48→21:00)
[2019-10-08] MEDS: guaiFENesin ER 600 MG TAB PO SCH ×2 (08:48→21:10)
[2019-10-08] MEDS: TAMSULOSIN 0.4 MG CAP PO SCH (21:10)
[2019-10-08] MEDS: OLANZapine 10 MG TAB PO SCH (21:10)
[2019-10-08 22:00] VITALS: BP 120/59
[2019-10-09] MEDS: ALBUTEROL SULFATE 2.5 MG/0.5 ML INH NEB SOLN INH SCH ×4 (01:25→19:44)
[2019-10-09] MEDS: SLF 3 ML SYR IV SCH ×2 (05:23→15:43)
[2019-10-09 06:00] VITALS: BP 127/63
[2019-10-09] MEDS: TIOTROPIUM INHALER/CAPSULE (SPIRIVA) INH SCH (08:20)
[2019-10-09] MEDS: ADVAIR HFA 230/21MCG INHALER INH SCH ×2 (08:20→19:44)
[2019-10-09] MEDS: atenoloL 50 MG TAB PO SCH ×2 (09:00→21:05)
[2019-10-09] MEDS: FOLIC ACID 1 MG TAB PO SCH (09:48)
[2019-10-09] MEDS: PANTOPRAZOLE 40MG TAB (PROTONIX) PO SCH (09:48)
[2019-10-09] MEDS: ENOXAPARIN 40MG/0.4ML SYRINGE (J1650 PER 10MG) SC SCH (09:48)
[2019-10-09] MEDS: DOCUSATE SODIUM 100 MG CAP PO SCH ×2 (09:48→21:04)
[2019-10-09] MEDS: MAGNESIUM OXIDE 400 MG TAB (MAG-OX) PO SCH (09:48)
[2019-10-09] MEDS: SERTRALINE HCL 50 MG TAB PO SCH (09:48)
[2019-10-09] MEDS: guaiFENesin ER 600 MG TAB PO SCH ×2 (09:48→21:04)
[2019-10-09] MEDS: FERROUS SULFATE 325MG TAB PO SCH (09:48)
[2019-10-09] MEDS: levETIRAcetam 250MG TABLET (KEPPRA) PO SCH ×2 (09:48→21:04)
[2019-10-09] MEDS: FUROSEMIDE 20 MG TAB PO SCH (09:50)
[2019-10-09] MEDS: TAMSULOSIN 0.4 MG CAP PO SCH (21:04)
[2019-10-09] MEDS: OLANZapine 10 MG TAB PO SCH (21:05)
[2019-10-09 22:00] VITALS: BP 113/77
--- NOTE | 2019-10-09 23:04 | DS.PDOC ---
Discharge Summary General Date of Admission Sep 29, 2019 at 18:41 Date of Discharge 10/07/19 transfer to [facility] Discharge Summary Date of Admission: September 29, 2019 Date of discharge/transfer to [facility]: October 07, 2019 Attending Physician: Sandy Flood PCP: see below Admission Diagnosis: Acute Hypercarbic respiratory failure Discharge Diagnosis: Acute Hypercarbic respiratory failure Secondary Diagnoses: COPD exacerbation Procedures: none HPI: 74 y.o M with PMH of COPD on 3L home oxygen presented for respiratory failure 2/2 likely home BiPAP noncompliance Hospital Course: patients hypercardia stabalized on bipap initiall. during the hospital course, he expresed discomfort on CPAP and bipap mask. he was treated for COPD exacerbation with prednisone, azithromycin, and rocephin fpr 5 days. after completing pneumonia regimen, he desaturates with exertion. Clinical and PT/OT asssersment recommend further rehab for lung conservative techique. transfered to [facility] on 10/06 Physical Exam: Physical Exam: General: no acute distress HEENT: normocephalic Neck: supple Heart: no abnormal heart sound son supine ausultation Lungs: coarse crackles on auscultation - 3L NC GI: soft Neuro:midly response Psych: lethargic; mildly responsive vitals as below Pending Lab or Test Results: none Immunizations Given During Admission: none Discharge Disposition: per PT/OT Diet: regular Discharge Medications: see attached Follow-up Appointments:pcp within 1 week; recommend PCP to consider outpatient pulm rehab time spent on discharge more than 30min Vital Signs/I&Os Vital Signs Date Time Temp Pulse Resp B/P (MAP) Pulse Ox O2 Delivery O2 Flow Rate FiO2 10/09/19 22:00 98.2 129 18 113/77 (89) 93 Nasal Cannula 3.0 I&O- Last 24 Hours up to 6 AM 10/09/19 06:00 Intake Total 1740 ml Output Total 950 ml Balance 790 ml Discharge Medications Scheduled Albuterol Sulf (Albuterol Sulfate) 2.5 Mg/3 Ml Vial.neb, 2.5 MG INH QID, (Reported) Atenolol (Atenolol) 50 Mg Tablet, 50 MG PO DAILY, (Reported) Cefprozil (Cefprozil) 500 Mg Tablet, 1 TAB PO BID Ferrous Sulfate (Ferrous Sulfate) 325 Mg Tablet.dr, 1 TAB PO DAILY Folic Acid (Folic Acid) 1 Mg Tablet, 1 MG PO DAILY, (Reported) Furosemide (Lasix) 20 Mg Tablet, 20 MG PO DAILY Levetiracetam (Levetiracetam) 250 Mg Tablet, 250 MG PO BID, (Reported) Multivitamins (Thera M Plus Tablet) 1 Each Tablet, 1 TAB PO DAILY, (Reported) Olanzapine (Olanzapine) 15 Mg Tablet, 15 MG PO QHS, (Reported) Pantoprazole Sodium (Pantoprazole Sodium) 40 Mg Tablet.dr, 40 MG PO DAILY, (Reported) Sertraline Hcl (Sertraline HCl) 50 Mg Tablet, 50 MG PO DAILY, (Reported) Sucralfate (Sucralfate) 1 Gm Tablet, 1 GM PO AC, (Reported) Tamsulosin HCl (Flomax) 0.4 Mg Capsule, 0.4 MG PO DAILY, (Reported) Tiotropium Bryant (Spiriva) 18 Mcg Cap.w.dev, 1 INHALATION INH DAILY, (Report ed) Allergies Coded Allergies: No Known Allergies (Unverified , 10/31/18) SANDY FLOOD DO Oct 09, 2019 23:04
[2019-10-10] MEDS: ALBUTEROL SULFATE 2.5 MG/0.5 ML INH NEB SOLN INH SCH ×3 (01:06→13:45)
[2019-10-10] MEDS ORDERED: atenoloL 25 MG TAB PO ONE ×2 (03:00→06:00)
[2019-10-10 06:00] VITALS: BP 115/62
[2019-10-10] MEDS: ADVAIR HFA 230/21MCG INHALER INH SCH (07:59)
[2019-10-10] MEDS: TIOTROPIUM INHALER/CAPSULE (SPIRIVA) INH SCH (07:59)
[2019-10-10] MEDS: PANTOPRAZOLE 40MG TAB (PROTONIX) PO SCH (08:58)
[2019-10-10] MEDS: levETIRAcetam 250MG TABLET (KEPPRA) PO SCH (08:58)
[2019-10-10] MEDS: guaiFENesin ER 600 MG TAB PO SCH (08:58)
[2019-10-10] MEDS: FERROUS SULFATE 325MG TAB PO SCH (08:58)
[2019-10-10] MEDS: SERTRALINE HCL 50 MG TAB PO SCH (08:58)
[2019-10-10] MEDS: FUROSEMIDE 20 MG TAB PO SCH (08:58)
[2019-10-10] MEDS: MAGNESIUM OXIDE 400 MG TAB (MAG-OX) PO SCH (08:58)
[2019-10-10] MEDS: FOLIC ACID 1 MG TAB PO SCH (08:58)
[2019-10-10] MEDS: DOCUSATE SODIUM 100 MG CAP PO SCH (08:58)
[2019-10-10 08:59] VITALS: BP 110/73
[2019-10-10] MEDS: ENOXAPARIN 40MG/0.4ML SYRINGE (J1650 PER 10MG) SC SCH (08:59)
[2019-10-10] MEDS: atenoloL 50 MG TAB PO SCH (08:59)
--- NOTE | 2019-10-10 11:54 | DS.PDOC ---
Discharge Summary General Date of Admission Sep 29, 2019 at 18:41 Date of Discharge 10/10/19 Discharge Summary PROCEDURES PERFORMED DURING STAY: [None]. ADMITTING DIAGNOSES: 1. [acute hypercarbic resp failure]. DISCHARGE DIAGNOSES: 1. [acute hypercarbic resp failure,COPD, LLL PNA]. COMPLICATIONS/CHIEF COMPLAINT: Pneumonia. HISTORY OF PRESENT ILLNESS: [74 y/o M with PMH of COPD admitted for acute on chronic respiratory failure. respiratory status not optimized Pt was admitted with Acute on chronic respiratory failure, left lower PNA and exacerbation of COPD Pt was started on Rocephin,Zithromax. HOSPITAL COURSE: [patients hypercarbic respiratory failure was initially stabalized with BIPAP. Pt continued his Bipap treatment support. Pt was also treated for COPD exacerbation with prednisone, azithromycin, and rocephin fpr 5 days. after completing pneumonia regimen, he desaturates with exertion. Clinical and PT/OT asssersment recommend further rehab for lung conservative techique. transfered to [facility] on 10/06 Pt was cleared by PT for Dc today, he will be Dc home with home care on all current meds.]. DISCHARGE MEDICATIONS: Please see below. ALLERGIES: Please see below. PHYSICAL EXAMINATION ON DISCHARGE: VITAL SIGNS: Please see below. GENERAL: [WNL] HEENT: [INOCENTE/EOMI] NECK: [SUPPLE] CARDIOVASCULAR EXAMINATION: [S1S2 regular] RESPIRATORY EXAMINATION: [Clear to A&P] ABDOMINAL EXAMINATION: [Benign] EXTREMITIES: [no CCE] SKIN: [NL] NEUROLOGICAL EXAMINATION: [no focal motor/sensory deficit] PSYCHIATRIC EXAMINATION: [NL] LABORATORY DATA: Please see below. IMAGING: [See chart] PROGNOSIS: [Good] ACTIVITY: [As tolerated]. DIET: [as tolerated] DISCHARGE PLAN: [Dc home with home care] DISPOSITION: . DISCHARGE INSTRUCTIONS: 1. [as above]. ITEMS TO FOLLOWUP ON ON OUTPATIENT: 1. [as per instructions]. DISCHARGE CONDITION: [Stable]. TIME SPENT ON DISCHARGE: 38 minutes. Vital Signs/I&Os Vital Signs Date Time Temp Pulse Resp B/P (MAP) Pulse Ox O2 Delivery O2 Flow Rate FiO2 10/10/19 08:59 130 110/73 10/10/19 06:00 98.3 18 90 Nasal Cannula 3.0 I&O- Last 24 Hours up to 6 AM 10/10/19 05:59 Intake Total 1720 ml Output Total 1950 ml Balance -230 ml Discharge Medications Scheduled Albuterol Sulf (Albuterol Sulfate) 2.5 Mg/3 Ml Vial.neb, 2.5 MG INH QID, (Reported) Atenolol (Atenolol) 50 Mg Tablet, 50 MG PO DAILY, (Reported) Cefprozil (Cefprozil) 500 Mg Tablet, 1 TAB PO BID Ferrous Sulfate (Ferrous Sulfate) 325 Mg Tablet.dr, 1 TAB PO DAILY Folic Acid (Folic Acid) 1 Mg Tablet, 1 MG PO DAILY, (Reported) Furosemide (Lasix) 20 Mg Tablet, 20 MG PO DAILY Levetiracetam (Levetiracetam) 250 Mg Tablet, 250 MG PO BID, (Reported) Multivitamins (Thera M Plus Tablet) 1 Each Tablet, 1 TAB PO DAILY, (Reported) Olanzapine (Olanzapine) 15 Mg Tablet, 15 MG PO QHS, (Reported) Pantoprazole Sodium (Pantoprazole Sodium) 40 Mg Tablet.dr, 40 MG PO DAILY, (Reported) Sertraline Hcl (Sertraline HCl) 50 Mg Tablet, 50 MG PO DAILY, (Reported) Sucralfate (Sucralfate) 1 Gm Tablet, 1 GM PO AC, (Reported) Tamsulosin HCl (Flomax) 0.4 Mg Capsule, 0.4 MG PO DAILY, (Reported) Tiotropium [place] (Spiriva) 18 Mcg Cap.w.dev, 1 INHALATION INH DAILY, (Reported) Allergies Coded Allergies: No Known Allergies (Unverified , 10/31/18) RUPA CLINE MD Oct 10, 2019 11:54
[2019-10-10] MEDS ORDERED: ATEN50TA2 PO (12:05)
--- NOTE | 2019-10-17 17:17 | ECHO ---
DATE OF PROCEDURE: 10/09/2019 Age: 74 Gender: Height: Weight: REFERRING PHYSICIAN: Dr. Flood REASON FOR THE STUDY: Shortness of breath. MEASUREMENTS: 2D MEASUREMENTS: IVS 1.1 cm LV 3.8 cm LA 3.3 cm Aorta 3.6 cm IVC 1.6 cm DOPPLER MEASUREMENT Peak velocity across the aortic valve 1.7 meters per second. Peak gradient across the aortic valve 11 mmHg Peak velocity across the LVOT 1.2 m/s Mitral E 0.69 Mitral A 1.0 with a ratio of 0.7 Maximal velocity 3.8 m/s COMMENTS: 1. Normal left ventricular size with probably moderately increased left ventricular wall thickness; left ventricular systolic pressure is normal, hyperdynamic and estimated at 65-70% of the aorta. 2. Normal left atrium. The right atrium appeared to be mildly enlarged. Normal right ventricle. 3. The atrial septum appeared to be normal without evidence of defect or shunt. 4. Normal aortic root. 5. Trace pericardial effusion noted, no evidence of cardiac tamponade. 6. Mildly calcified aortic valve with normal leaflet function. 7. Normal mitral valve and tricuspid valve. The pulmonic valve also appeared to be normal. The proximal pulmonary artery branches were not well visualized. 8. The inferior vena cava was normal in size, intravenous pressure was most likely normal. DOPPLER: It detects mild aortic regurgitation, trace pulmonic regurgitation, and moderately severe tricuspid regurgitation. The calculated pulmonary artery systolic pressure was between 50-60 mmHg. Abnormal relaxation pattern was noted across the mitral valve leaflets as well as the mitral valve annulus consistent with features of grade 1 left ventricular diastolic dysfunction. IMPRESSION: 1. Normal left ventricular systolic pressure with probably moderate concentric left ventricular hypertrophy. There were some features of left ventricular diastolic dysfunction manifested by abnormal relaxation. 2. Aortic valve sclerosis with mild aortic regurgitation but no aortic stenosis. 3. Moderate to severe tricuspid regurgitation and moderate to severe pulmonary hypertension. The right atrium appeared to be enlarged. 4. Trace pericardial effusion. 5. The descending thoracic aortic appeared to be mildly enlarged, measuring 3.0 x 3.9 cm. 6. The patient was noted during the test to be mildly tachycardic at 125 beats per minute. MTDD
--- NOTE | 2019-11-01 14:20 | ECGEPIP ---
SINUS RHYTHM POSSIBLE RIGHT VENTRICULAR HYPERTROPHY ABNORMAL ECG SEE SCANNED DOWNTIME REPORT MTDD
--- NOTE | 2019-11-07 11:46 | ECGEPIP ---
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
[2019-11-13 11:42] LABS: BASO % 0.1 % (0.0-1.0); EOS % 0.1 % (0.0-3.0); HEMATOCRIT 40.1 % (42.0-52.0); HEMOGLOBIN 11.2 g/dl (13.5-17.5); LYMPH # 0.3 10^3/uL (1.5-5.0); LYMPH % 4.2 % (24.0-44.0); MEAN CORPUSCULAR HEMOGLOBIN 29.6 pg (27.0-33.0); MEAN CORPUSCULAR HGB CONC 27.9 g/dl (32.0-36.5); MEAN CORPUSCULAR VOLUME 105.8 fl (80.0-96.0); MONO # 0.4 10^3/uL (0.0-0.8); MONO % 4.8 % (0.0-5.0); NEUTROPHILS # 6.5 10^3/uL (1.5-8.5); NEUTROPHILS % 90.4 % (36.0-66.0); PLATELET COUNT, AUTOMATED 145 10^3/uL (150-450); RED BLOOD COUNT 3.79 10^6/uL (4.30-6.10); WHITE BLOOD COUNT 7.2 10^3/uL (4.0-10.0)
[2019-11-26 18:14] LABS: BASO % 0.2 % (0.0-1.0); EOS % 0.2 % (0.0-3.0); HEMATOCRIT 37.6 % (42.0-52.0); HEMOGLOBIN 11.2 g/dl (13.5-17.5); LYMPH # 0.2 10^3/uL (1.5-5.0); LYMPH % 3.6 % (24.0-44.0); MEAN CORPUSCULAR HGB CONC 29.8 g/dl (32.0-36.5); MEAN CORPUSCULAR VOLUME 100.8 fl (80.0-96.0); MONO # 0.2 10^3/uL (0.0-0.8); MONO % 2.9 % (0.0-5.0); NEUTROPHILS # 5.7 10^3/uL (1.5-8.5); NEUTROPHILS % 92.8 % (36.0-66.0); PLATELET COUNT, AUTOMATED 144 10^3/uL (150-450); RED BLOOD COUNT 3.73 10^6/uL (4.30-6.10); WHITE BLOOD COUNT 6.1 10^3/uL (4.0-10.0)
[2019-12-12 10:18] LABS: HEMATOCRIT 36.9 % (42.0-52.0); MEAN CORPUSCULAR HEMOGLOBIN 29.7 pg (27.0-33.0); MEAN CORPUSCULAR VOLUME 99.7 fl (80.0-96.0); WHITE BLOOD COUNT 7.1 10^3/uL (4.0-10.0)
[2019-12-12 10:19] LABS: LYMPH # 0.2 10^3/uL (1.5-5.0); LYMPH % 3.2 % (24.0-44.0); MEAN CORPUSCULAR HGB CONC 29.8 g/dl (32.0-36.5); MONO # 0.2 10^3/uL (0.0-0.8); MONO % 2.5 % (0.0-5.0); NEUTROPHILS # 6.6 10^3/uL (1.5-8.5); NEUTROPHILS % 93.2 % (36.0-66.0); PLATELET COUNT, AUTOMATED 163 10^3/uL (150-450)
[2019-12-17 09:40] LABS: BLOOD UREA NITROGEN 20 MG/DL (7-18); CARBON DIOXIDE LEVEL 58 MEQ/L (21-32); CHLORIDE LEVEL 93 MEQ/L (98-107); GLOMERULAR FILTRATION RATE > 60.0 (>42); GLUCOSE, FASTING 125 MG/DL (70-100); SODIUM LEVEL 144 MEQ/L (136-145)
[2019-12-17 09:41] LABS: ABG BASE EXCESS 24.7 (-2.0-2.0); ABG HCO3 55.1 MEQ/L (22.0-26.0); ABG O2 SATURATION 94.5 % (95.0-99.0); ABG PARTIAL PRESSURE CO2 97.5 mmHg (35.0-45.0); ABG PARTIAL PRESSURE O2 74.7 mmHg (75.0-100.0); ABG STANDARD HCO3 49.5 MEQ/L (22.0-26.0); ABG TOTAL CO2 58.1 MEQ/L (23.0-31.0)
[2019-12-22 12:52] LABS: ABG MODE OF VENT RA; ABG pH (ARTERIAL) 7.263 UNITS (7.350-7.450)
[2019-12-22 12:53] LABS: ABG BASE EXCESS 14.8 (-2.0-2.0); ABG HCO3 45.8 MEQ/L (22.0-26.0); ABG O2 SATURATION 87.9 % (95.0-99.0); ABG PARTIAL PRESSURE CO2 103.8 mmHg (35.0-45.0); ABG PARTIAL PRESSURE O2 55.5 mmHg (75.0-100.0); ABG STANDARD HCO3 38.4 MEQ/L (22.0-26.0)
[2019-12-22 12:55] LABS: ABG BASE EXCESS 12.9 (-2.0-2.0); ABG HCO3 43.7 MEQ/L (22.0-26.0); ABG MODE OF VENT RA; ABG PARTIAL PRESSURE CO2 99.3 mmHg (35.0-45.0); ABG PARTIAL PRESSURE O2 61.1 mmHg (75.0-100.0); ABG STANDARD HCO3 36.5 MEQ/L (22.0-26.0); ABG TOTAL CO2 46.7 MEQ/L (23.0-31.0); ABG pH (ARTERIAL) 7.261 UNITS (7.350-7.450)
[2019-12-22 12:56] LABS: ABG O2 SATURATION 90.8 % (95.0-99.0)
[2019-12-22 12:57] LABS: BLOOD UREA NITROGEN 21 MG/DL (7-18); CALCIUM LEVEL 8.5 MG/DL (8.8-10.2); CARBON DIOXIDE LEVEL 47 MEQ/L (21-32); CHLORIDE LEVEL 92 MEQ/L (98-107); CK-MB VALUE MASS 9.6 NG/ML (<3.6); CPK CREATINE PHOSPHOKINASE 62 U/L (39-308); CREATININE FOR GFR 0.93 MG/DL (0.70-1.30); GLOMERULAR FILTRATION RATE > 60.0 (>42); GLUCOSE, FASTING 90 MG/DL (70-100); MB/CK RELATIVE INDEX 15.48 (< OR =4); POTASSIUM SERUM 4.6 MEQ/L (3.5-5.1); SODIUM LEVEL 138 MEQ/L (136-145); TROPONIN I 0.03 NG/ML (< 0.10)
[2019-12-24 10:20] LABS: ABG pH (ARTERIAL) 7.312 UNITS (7.350-7.450)
[2019-12-24 10:21] LABS: ABG BASE EXCESS 13.6 (-2.0-2.0); ABG HCO3 43.4 MEQ/L (22.0-26.0); ABG O2 SATURATION 97.4 % (95.0-99.0); ABG PARTIAL PRESSURE CO2 87.7 mmHg (35.0-45.0); ABG PARTIAL PRESSURE O2 94.3 mmHg (75.0-100.0); ABG STANDARD HCO3 37.4 MEQ/L (22.0-26.0); ABG TOTAL CO2 46.1 MEQ/L (23.0-31.0)
[2019-12-24 10:22] LABS: ABG PARTIAL PRESSURE CO2 72.7 mmHg (35.0-45.0); ABG PARTIAL PRESSURE O2 85.6 mmHg (75.0-100.0); ABG pH (ARTERIAL) 7.392 UNITS (7.350-7.450)
[2019-12-24 10:23] LABS: ABG BASE EXCESS 15.1 (-2.0-2.0); ABG HCO3 43.2 MEQ/L (22.0-26.0); ABG O2 SATURATION 97.1 % (95.0-99.0); ABG STANDARD HCO3 38.9 MEQ/L (22.0-26.0); ABG TOTAL CO2 45.5 MEQ/L (23.0-31.0)
[2019-12-24 10:33] LABS: BLOOD UREA NITROGEN 19 MG/DL (7-18); CARBON DIOXIDE LEVEL 52 MEQ/L (21-32); CHLORIDE LEVEL 93 MEQ/L (98-107); CREATININE FOR GFR 0.62 MG/DL (0.70-1.30); GLOMERULAR FILTRATION RATE > 60.0 (>42); GLUCOSE, FASTING 56 MG/DL (70-100); POTASSIUM SERUM 4.4 MEQ/L (3.5-5.1); SODIUM LEVEL 140 MEQ/L (136-145)
[2019-12-24 10:34] LABS: ALBUMIN 2.5 GM/DL (3.2-5.2); CALCIUM LEVEL 8.2 MG/DL (8.8-10.2); MAGNESIUM LEVEL 1.8 MG/DL (1.8-2.4)
[2019-12-24 12:50] LABS: ABG PARTIAL PRESSURE CO2 93.4 mmHg (35.0-45.0); ABG PARTIAL PRESSURE O2 44.8 mmHg (75.0-100.0)
[2019-12-24 12:51] LABS: ABG BASE EXCESS 25.5 (-2.0-2.0); ABG HCO3 55.3 MEQ/L (22.0-26.0); ABG O2 SATURATION 80.4 % (95.0-99.0); ABG STANDARD HCO3 50.1 MEQ/L (22.0-26.0); ABG TOTAL CO2 58.1 MEQ/L (23.0-31.0)
[2019-12-24 13:02] LABS: BLOOD UREA NITROGEN 19 MG/DL (7-18); CALCIUM LEVEL 8.3 MG/DL (8.8-10.2); CARBON DIOXIDE LEVEL 59 MEQ/L (21-32); CHLORIDE LEVEL 92 MEQ/L (98-107); GLOMERULAR FILTRATION RATE > 60.0 (>42); GLUCOSE, FASTING 92 MG/DL (70-100); POTASSIUM SERUM 3.5 MEQ/L (3.5-5.1); SODIUM LEVEL 143 MEQ/L (136-145)
== END 2019-10-10 18:03 | disposition home or self-care (01) | DRG 189 ==
LOC: M ED 10:37 → M PCU 18:41 → M MSPAV 10-06 21:20
PROVIDERS: ADMIT Internal Medicine Nephrology; ATTEND Internal Medicine
DX: J96.22 Acute and chronic respiratory failure with hypercapnia (principal); J18.9 Pneumonia, unspecified organism; I50.33 Acute on chronic diastolic (congestive) heart failure; J44.0 Chronic obstructive pulmonary disease with (acute) lower respiratory infection; J44.1 Chronic obstructive pulmonary disease with (acute) exacerbation; C20 Malignant neoplasm of rectum; R33.9 Retention of urine, unspecified; G40.909 Epilepsy, unspecified, not intractable, without status epilepticus; F20.9 Schizophrenia, unspecified; F32.9 Major depressive disorder, single episode, unspecified; I48.0 Paroxysmal atrial fibrillation; Z79.899 Other long term (current) drug therapy

== ENCOUNTER 2019-10-31 00:50 | Inpatient (IN) | payer MEDICARE ==
[~2019-10-31] VITALS: Ht 167.6 cm; Wt 53.9 kg
[~2019-10-31 00:50] MED LIST changes: +ALBU83IN INH; +CEFP500T PO; +FERR325T3 PO; +FURO20TA2 PO; +LASI20TA3 PO; +[UNRECOGNIZED DRUG - CODE] PO
[2019-10-31] MEDS ORDERED: ATOR1TAB21 PO (01:06)
[2019-10-31] MEDS ORDERED: MAGN400T2 PO (01:06)
[2019-10-31] MEDS ORDERED: ASPIRIN 81 MG CHEW TABLET PO ONE (01:15)
[2019-10-31 01:19] LABS: BASO % 0.1 % (0.0-1.0); EOS % 0.1 % (0.0-3.0); HEMATOCRIT 40.9 % (42.0-52.0); HEMOGLOBIN 11.8 g/dl (13.5-17.5); LYMPH # 0.4 10^3/uL (1.5-5.0); LYMPH % 5.2 % (24.0-44.0); MEAN CORPUSCULAR HEMOGLOBIN 29.6 pg (27.0-33.0); MEAN CORPUSCULAR HGB CONC 28.9 g/dl (32.0-36.5); MEAN CORPUSCULAR VOLUME 102.8 fl (80.0-96.0); MONO # 0.4 10^3/uL (0.0-0.8); MONO % 6.5 % (0.0-5.0); NEUTROPHILS # 5.9 10^3/uL (1.5-8.5); NEUTROPHILS % 87.4 % (36.0-66.0); PLATELET COUNT, AUTOMATED 220 10^3/uL (150-450); RED BLOOD COUNT 3.98 10^6/uL (4.30-6.10); WHITE BLOOD COUNT 6.7 10^3/uL (4.0-10.0)
[2019-10-31 01:30] LABS: INR 1.01; PROTHROMBIN TIME 13.5 SECONDS (11.8-14.0)
[2019-10-31 01:31] LABS: PARTIAL THROMBOPLASTIN TIME 27.3 SECONDS (25.0-38.4)
[2019-10-31 01:45] LABS: ALBUMIN 2.7 GM/DL (3.2-5.2); ALT/SGPT 39 U/L (12-78); BILIRUBIN,DIRECT 0.2 MG/DL (0.0-0.2); BILIRUBIN,TOTAL 0.3 MG/DL (0.2-1.0); BLOOD UREA NITROGEN 36 MG/DL (7-18); CALCIUM LEVEL 8.3 MG/DL (8.8-10.2); CARBON DIOXIDE LEVEL 42 MEQ/L (21-32); CHLORIDE LEVEL 95 MEQ/L (98-107); CPK CREATINE PHOSPHOKINASE 46 U/L (39-308); CREATININE FOR GFR 1.08 MG/DL (0.70-1.30); FREE T4 0.59 NG/DL (0.76-1.46); GLOMERULAR FILTRATION RATE > 60.0 (>42); GLUCOSE, FASTING 109 MG/DL (70-100); LIPASE 41 U/L (73-393); MB/CK RELATIVE INDEX 15.22 (< OR =4); POTASSIUM SERUM 4.2 MEQ/L (3.5-5.1); SODIUM LEVEL 137 MEQ/L (136-145); TOTAL PROTEIN 5.8 GM/DL (6.4-8.2); TROPONIN I < 0.02 NG/ML (< 0.10)
[2019-10-31] MEDS ORDERED: NS 500 ML IV ONE ×2 (01:45→06:15)
[2019-10-31] MEDS ORDERED: ISOVUE-370 76% 100ML VIAL As Ordered ONE (02:05)
[2019-10-31] MEDS ORDERED: METAL LOCK LOOP XX ONE (02:19)
--- NOTE | 2019-10-31 02:59 | REPVR ---
PROCEDURE INFORMATION: Exam: CT Angiography Chest With Contrast Exam date and time: 10/31/2019 2:17 AM Age: 74 years old Clinical indication: Chest pain TECHNIQUE: Imaging protocol: Computed tomographic angiography of the chest with intravenous contrast. 3D rendering (Not supervised by radiologist): MIP and/or 3D reconstructed images were created by the technologist. Radiation optimization: All CT scans at this facility use at least one of these dose optimization techniques: automated exposure control; mA and/or kV adjustment per patient size (includes targeted exams where dose is matched to clinical indication); or iterative reconstruction. Contrast material: ISOVUE 370; Contrast volume: 75 ml; Contrast route: INTRAVENOUS (IV); COMPARISON: CT ANGIO CHEST 08/25/2019 5:36 AM FINDINGS: Pulmonary arteries: Filling defects involving segmental and subsegmental branches of the left lower lobe pulmonary artery concerning for acute pulmonary embolic disease. Aorta: Atherosclerotic disease of the thoracic aorta. Veins: Left superior vena cava. Lungs: Centrilobular and paraseptal emphysema. Dependent opacity in the left upper lobe. Diminished size of the right lower lobe pulmonary nodules. Mild mucoid impaction in the left lower lobe. Atelectasis or scarring at left base. Pleural space: Small bilateral pleural effusions. Heart: Atherosclerotic disease of the coronary arteries. Suggestion of right heart failure. Lymph nodes: Unremarkable. No enlarged lymph nodes. Kidneys and ureters: Multiple bilateral simple and hemorrhagic renal cysts. Intraperitoneal space: Ascites. Bones/joints: Multilevel degenerative disease of the thoracic spine. Soft tissues: Unremarkable. IMPRESSION: Filling defects involving segmental and subsegmental branches of the left lower lobe pulmonary artery concerning for acute pulmonary embolic disease. COMMENTS: Consistent with the [employer]'s Incidental Findings Committee white paper (J Am Steve Radiol 2018): Any incidental renal lesion less than 1 cm or classified as too small to characterize, or any incidental cystic renal lesion characterized as simple-appearing, is likely benign. No follow-up imaging is recommended for these lesions per consensus recommendations based on imaging criteria. Electronically signed by: Sheldon Romeo On 10/31/2019 02:58:33 AM
[2019-10-31] MEDS ORDERED: FERR325T3 PO (03:33)
[2019-10-31] MEDS ORDERED: ALBU83IN INH (03:33)
[2019-10-31] MEDS ORDERED: SPIR1CAP INH (03:33)
[2019-10-31] MEDS ORDERED: ATEN50TA2 PO (03:33)
[2019-10-31] MEDS ORDERED: FURO20TA2 PO (03:33)
--- NOTE | 2019-10-31 03:59 | HPEPDOC ---
[facility] Medical History & Physical Date of Admission Oct 31, 2019 Date of Service: Oct 31, 2019 Attending Physician: Tiana Burton MD History and Physical CHIEF COMPLAINT: Chest pain HISTORY OF PRESENT ILLNESS: Patient is a 74 year old male presenting with chief complaint of chest pain. He states he was at home and stood up to get out of bed when he became dizzy, developed sudden onset left sided chest pain, then fell to the floor, losing consciousness (he is unaware for how long or if it was w itnessed), he was found by his granddaughter who called EMS. He denies this ever happening previously and states the chest pain is still present but is less than it was prior. In the ED he was hypotensive with EKG demonstrating sinus tachycardia at a rate of 121 with unremarkable work-up but CT angiogram demonstrating left lower lobe segmental and subsegmental pulmonary emboli. Interval history: Patient was admitted to [facility] in February for CHF exacerbation and GI bleed with resolution s/p 2units PRBCs, was discharged home with decision to AC deferred once bleeding issue had resolved. He was readmitted in March for worsening anemia/abdominal pain and found to have a perforated duodenal ulc er, was taken to the OR for ex-lap and washout only for no perforation to be found. During that time he received 6 units PRBCs and the decision to anticoagulate was further put off. PAST MEDICAL HISTORY: H/o GI bleeding 2/2 PUD from duodenal ulcer perforation in 03/2019 s/p ex-lap and abdominal washout though perforation was not seen. Rectal mass suspicious for high-grade invasive carcinoma (biopsy from 09/14/2019) CHF w/pEF Moderate LVH Severe pulmonary hypertension Severe tricuspid regurgitation Chronic respiratory failure with hypoxia and hypercarbia COPD Schizophrenia. Hyperlipidemia. Depression. Hx of Hypertension Severe protein calorie malnutrition. Hx of seizure disorder? self DC'd by patient Paroxysmal atrial fibrillation BPH Hx of Alcohol abuse hx of Urinary retention with chronic indwelling Diaz catheter. AAA 3.1 cm H/O Acute peritonitis and sepsis secondary to suspected posterior duodenal perforation intra-abdominal cultures positive for E. coli and Citrobacter in Mar 2019. Hx of New irregular pulmonary nodule in the anterior right lower lobe will need PET/CT" New since MAR 2019 CT chest. Also a 7 mm nodule in the posterior right lower lobe. PAST SURGICAL HISTORY: Hx of neck surgery Ex-lap in 03/2019 w/ abdominal washout for presumed duodenal perforation L-shoulder surgery R-knee surgery L-wrist fx SOCIAL HISTORY: Former smoker (quit in February 2019), hx of alcohol abuse disorder (states he drinks a beer once in a while), denies illicit drug use. Lives alone. One of his daughters is HCP. FAMILY HISTORY: Mother had diabetes, throat cancer, schizophrenia Father with hx of COPD, CAD Sister with hx of skin cancer ALLERGIES: Please see below. REVIEW OF SYSTEMS: Constitutional: Denies fevers, chills, night sweats, or recent unexpected weight change HEENT: Denies Headaches, head trauma, No visual changes or eye pain, denies nose bleeds, or difficulty swallowing Cardiovascular: Denies palpitations, or orthopnea. Admits to chest pain. Respiratory: Denies cough, wheezing, or new onset shortness of breath GI: Denies nausea, vomiting, abdominal pain, diarrhea or constipation : Denies pain with urination or frequency Musculoskeletal: Denies joint pain or swelling Neuro / Psych: Denies muscle weakness or sensory loss. Admits to dizziness with position change. Skin: Denies skin rashes HOME MEDICATIONS: Please see below. PHYSICAL EXAMINATION: VITAL SIGNS: See below GENERAL: Elderly appearing male who appears older than stated age laying com fortably in his bed in no acute distress HEENT: NC, AT, EOMI, no scleral icterus, dry mucous membranes, no pharyngeal erythema. NECK: No cervical or supraclavicular lymphadenopathy. No JVD. CARDIOVASCULAR: Tachycardic rate, regular rhythm, normal S1 and S2. No murmurs, gallops, rubs. LUNGS: Diminished breath sounds with short insp/exp phases, no wheezes or crackles, end expiratory rhonchi present. ABDOMEN: Soft, non-tender, non-distended, bowel sounds present. No hepatosplenomegaly. No masses or eccymosis. No CVA tenderness. Umbilical hernia and midline incisional scar present. EXTREMITIES: 2+ pitting edema to the knees bilaterally. SKIN: No rashes or skin changes. NEUROLOGICAL: No focal or sensory deficits. CN II-XII grossly intact. A&Ox3 (person, place, year) PSYCHIATRIC: Normal mood and affect. LABORATORY DATA: See below. IMAGIN10/31/[address] angiogram: IMPRESSION: Filling defects involving segmental and subsegmental branches of the left lower lobe pulmonary artery concerning for acute pulmonary embolic disease. MICROBIOLOGY: Please see below. Assessment/Plan: 74 year old M presenting with chest pain and found to have left lower lobe pulmonary emboli #. left lower lobe Segmental/subsegmental Pulmonary Emboli -Given patient's history of chronic GI bleed resulting in multiple hospitalizations in the past that is still being worked up by Dr. Hutson with he me/onc, we will defer initiating anticoagulation after risks/benefits discussion with patient and patient's health care proxy until the day team arrives. This will be especially important as patient has a history of colorectal cancer that may not be operable per surgical report done in September by Dr. Curire, this cancer will be an ongoing risk factor for subsequent pulmonary embolic. Patient's initial hemodynamic instability more likely attributed to poor oral intake and dehydration based on physical exam and given the PE is segmental/subsegmental. -Will order bilateral duplex U/S to see if the PE came from a source, patient has a history of addis filter, but it is unclear whether this is still present or has been removed. #. Syncopal episode Patient is a poor historian so it is unclear whether this was witnessed, how long he lost consciousness for, and whether he hit his head, apparently patient's granddaughter found him, day team to reach out to family for better history in AM. -Ordering CT head, needs to be deferred to 0900 as patient already received contrast in ED. This is yet another reason to defer initiating anticoagulation. -Ordering Echo -trending troponins, no EKG changes -Orthostatic vital signs ordered #. Hypotension -Likely 2/2 dehydration as patient has features on exam and in his history (poor PO intake) to suggest intravascular depletion -Received 1 liter in ED, was fluid responsive -Given patient's peripheral edema, will gently hydrate @75 cc/hour #. Sinus tachycardia -multiple ECGs state atrial fib; however, on review, there are p waves, HR 120's -Likely 2/2 dehydration and possibly to PE as well -See hypotension above #. Hx of GI bleed -Day team to reach out to heme/onc to see what if anything was revealed or discussed in the work up. Given patient's complicated hx of cancer, pAfib, new onset PE, with hx of GI bleed resulting in severe morbidity everyone should be on the same page with the next best step moving forward. - 09/13/2019 colonoscopy w/ poor prep showing partially obstructing rectal mass, diverticulosis. Rectal mass biopsy showing high grade dysplasia suspicious for invasive carcinoma. - 09/13/2019 EGD showing large hiatal hernia, erythematous duodenopathy, otherwise normal. -continue home protonix and sucralfate #. Hx of paroxysmal Afib -Currently sinus tachycardic -Not on anticoagulation due to hx of GI bleed, see above -Continue atenolol with holding parameters #. Macrocytic anemia -Being followed by heme/onc, hgb currently at baseline. -Continue ferrous sulfate, folix acid #. CHF w/pEF -Continue home lasix with holding parameters -2 gram sodium diet -Not currently in exacerbation #. Chronic hypoxic hypercarbic respiratory failure -Wears 3L of oxygen at home, currently at 4L #. COPD -Maintain O2 sats between 88-92% -Continue home albuterol nebs and spiriva. #. Schizophrenia -Continue zyprexa #. BPH -Continue tamsulosin #. Hyperlipidemia -Continue home statin DVT prophylaxis: teds, seqs, defer further prophylaxis to day team CODE STATUS: patient has rescinded DNR/DNI, and is now FULL CODE. Vital Signs Vital Signs Date Time Temp Pulse Resp B/P (MAP) Pulse Ox O2 Delivery O2 Flow Rate FiO2 10/31/19 02:57 119 102/69 (80) 97 10/31/19 01:35 97.7 22 Nasal Cannula 4.0 Laboratory Data Labs 24H Laboratory Tests 2 10/31/19 01:07: Immature Granulocyte % (Auto) 0.7, Neutrophils (%) (Auto) 87.4H, Lymphocytes (%) (Auto) 5.2L, Monocytes (%) (Auto) 6.5H, Eosinophils (%) (Auto) 0.1, Basophils (%) (Auto) 0.1, Neutrophils # (Auto) 5.9, Lymphocytes # (Auto) 0.4L, Monocytes # (Auto) 0.4, Eosinophils # (Auto) 0.0, Basophils # (Auto) 0.0, Nucleated Red Blood Cells % (auto) 0.0, Prothrombin Time 13.5, Prothromb Time International Ratio 1.01, Activated Partial Thromboplast Time 27.3, Anion Gap 0L, Glomerular Filtration Rate > 60.0, Calcium Level 8.3L, Total Bilirubin 0.3, Direct B ilirubin 0.2, Aspartate Amino Transf (AST/SGOT) 18, Alanine Aminotransferase (ALT/SGPT) 39, Alkaline Phosphatase 145H, Total Creatine Kinase 46, Creatine Kinase MB 7.0H, Creatine Kinase MB Relative Index 15.22H, Troponin I < 0.02, Total Protein 5.8L, Albumin 2.7L, Albumin/Globulin Ratio 0.9, Lipase 41L, Thyroid Stimulating Hormone (TSH) 1.910, Free Thyroxine 0.59L CBC/BMP Laboratory Tests 10/31/19 01:07 Home Medications Scheduled Atenolol (Atenolol) 50 Mg Tablet, 50 MG PO BID Atorvastatin Calcium (Atorvastatin Calcium) 20 Mg Tablet, 20 MG PO QHS Ferrous Sulfate (Ferrous Sulfate) 325 Mg Tablet.dr, 325 MG PO DAILY Folic Acid (Folic Acid) 1 Mg Tablet, 1 MG PO DAILY Furosemide (Furosemide) 20 Mg Tablet, 20 MG PO DAILY Magnesium Oxide (Magnesium Oxide) 400 Mg Tablet, 400 MG PO DAILY Multivitamins (Thera M Plus Tablet) 1 Each Tablet, 1 TAB PO DAILY Olanzapine (Olanzapine) 15 Mg Tablet, 15 MG PO QHS Pantoprazole Sodium (Pantoprazole Sodium) 40 Mg Tablet.dr, 40 MG PO DAILY Sertraline Hcl (Sertraline HCl) 50 Mg Tablet, 50 MG PO DAILY Sucralfate (Sucralfate) 1 Gm Tablet, 1 GM PO ACHS Tamsulosin HCl (Flomax) 0.4 Mg Capsule, 0.4 MG PO DAILY Tiotropium [place] (Spiriva) 18 Mcg Cap.w.dev, 1 INHALATION INH QHS Scheduled PRN Albuterol Sulf (Albuterol Sulfate) 2.5 Mg/3 Ml Vial.neb, 2.5 MG INH Q4H PRN for WHEEZING Allergies Coded Allergies: No Known Allergies (Unverified , 10/31/18) GME ATTESTATION GME ATTESTATION My faculty preceptor for this patient encounter was physically present during the encounter and was fully available. All aspects of the patient interview, examination, medical decision making process, and medical care plan development were reviewed and approved by the faculty preceptor. The faculty preceptor is aware and concurs with the plan as stated in the body of this note and will attest to such by his/her cosignature. ATTENDING NOTE I, Tiana Burton, have independently examined this patient and performed my own physical exam, as well as reviewed the documentation and edited where necessary. I have discussed in detail with the resident / student the findings and plan of treatment as documented by the resident / student and edited their note. I agree with their findings and treatment plan and have edited their documentation. I will continue to follow the patient during this hospital stay. YNES RITTER DO Oct 31, 2019 03:59 Tiana Burton MD Oct 31, 2019 06:51
[2019-10-31] MEDS ORDERED: NS 1,000 ML IV SCH (04:00)
[2019-10-31] MEDS ORDERED: ACETAMINOPHEN TAB 650MG DOSE (2X325MG) PO PRN (04:00)
[2019-10-31] MEDS ORDERED: ALBUTEROL SULFATE 2.5 MG/0.5 ML INH NEB SOLN INH PRN (04:00)
[2019-10-31 05:15] VITALS: BP 104/70
--- NOTE | 2019-10-31 05:18 | REPVR ---
PROCEDURE INFORMATION: Exam: US Duplex Lower Extremity Veins, Bilateral Exam date and time: 10/31/2019 5:03 AM Age: 74 years old Clinical indication: Abnormal findings; Abnormal imaging study of limbs; Chest; CT angio; Additional info: Pe TECHNIQUE: Imaging protocol: Real-time duplex ultrasound of the extremities with 2-D ibrahim scale, color Doppler flow and spectral waveform analysis with image documentation. Complete exam focused on the bilateral lower extremity veins. COMPARISON: No relevant prior studies available. FINDINGS: Right deep veins: Unremarkable. The common femoral, femoral, proximal profunda femoral and popliteal veins are patent without thrombus. Normal Doppler waveforms. Normal compressibility and/or augmentation response. Right superficial veins: Saphenofemoral junction is patent without thrombus. Left deep veins: Unremarkable. The common femoral, femoral, proximal profunda femoral and popliteal veins are patent without thrombus. Normal Doppler waveforms. Normal compressibility and/or augmentation response. Left superficial veins: Saphenofemoral junction is patent without thrombus. Soft tissues: Unremarkable. IMPRESSION: No evidence of deep vein thrombosis. Electronically signed by: Sheldon Romeo On 10/31/2019 05:17:46 AM
[2019-10-31 06:37] LABS: HEMATOCRIT 41.6 % (42.0-52.0); HEMOGLOBIN 12.2 g/dl (13.5-17.5); MEAN CORPUSCULAR HEMOGLOBIN 29.8 pg (27.0-33.0); MEAN CORPUSCULAR HGB CONC 29.3 g/dl (32.0-36.5); MEAN CORPUSCULAR VOLUME 101.7 fl (80.0-96.0); PLATELET COUNT, AUTOMATED 220 10^3/uL (150-450); RED BLOOD COUNT 4.09 10^6/uL (4.30-6.10); WHITE BLOOD COUNT 7.9 10^3/uL (4.0-10.0)
[2019-10-31 07:04] LABS: BLOOD UREA NITROGEN 35 MG/DL (7-18); CALCIUM LEVEL 8.3 MG/DL (8.8-10.2); CARBON DIOXIDE LEVEL 36 MEQ/L (21-32); CHLORIDE LEVEL 98 MEQ/L (98-107); CK-MB VALUE MASS 7.3 NG/ML (<3.6); CPK CREATINE PHOSPHOKINASE 46 U/L (39-308); CREATININE FOR GFR 0.97 MG/DL (0.70-1.30); GLOMERULAR FILTRATION RATE > 60.0 (>42); GLUCOSE, FASTING 86 MG/DL (70-100); MB/CK RELATIVE INDEX 15.87 (< OR =4); NT-PRO BNP 11264 PG/ML (<125); SODIUM LEVEL 135 MEQ/L (136-145); TROPONIN I < 0.02 NG/ML (< 0.10)
[2019-10-31] MEDS: TIOTROPIUM INHALER/CAPSULE (SPIRIVA) INH SCH (07:34)
[2019-10-31 08:00] VITALS: BP 99/68
--- NOTE | 2019-10-31 08:01 | REPVR ---
PROCEDURE INFORMATION: Exam: XR Chest, 1 View Exam date and time: 10/31/2019 7:41 AM Age: 74 years old Clinical indication: Shortness of breath; Additional info: SOB TECHNIQUE: Imaging protocol: XR of the chest Views: 1 view. COMPARISON: CT ANGIO CHEST 10/31/2019 2:00 AM FINDINGS: Lungs: Emphysema. Pleural space: Unremarkable. No pleural effusion. No pneumothorax. Heart/Mediastinum: Cardiomegaly. Vasculature: Atherosclerotic disease of the thoracic aorta. Bones/joints: Unremarkable. IMPRESSION: Cardiomegaly. Emphysema. Electronically signed by: Sheldon Romeo On 10/31/2019 08:01:37 AM
[2019-10-31] MEDS ORDERED: HEPARIN DRIP 25,000 UNITS in IV 1 EA IV SCH ×2 (08:03→08:31)
[2019-10-31] MEDS ORDERED: HEPARIN SOD (PORCINE) 5000UNITS/ML 1ML VIAL/SYRINGE IV PRN ×2 (08:15→08:45)
[2019-10-31] MEDS: atenoloL 50 MG TAB PO SCH ×2 (08:21→20:59)
[2019-10-31] MEDS: FUROSEMIDE 20 MG TAB PO SCH (09:00)
--- NOTE | 2019-10-31 09:03 | IPNPDOC ---
Date Seen The patient was seen on 10/31/19. Progress Note code status: due to multiple co-morbid conditions, moderate to severe pulmonary htn, Afib, CHF diastolic dysfunction, unresectable rectal cancer, pulmonary embolism, hypotension, Afib with RVR/Aflutter, pt's HCP, Shira, pt's daughter, per pt's prior wishes requests DO NOT RESUSCITATE DO NOT INTUBATE Plan: code status-dnr dni pt's granddaughter bird corona and pt's hcp shira to discuss hospice client program manager. VS, I&O, 24H, Fishbone Vital Signs/I&O Vital Signs Date Time Temp Pulse Resp B/P (MAP) Pulse Ox O2 Delivery O2 Flow Rate FiO2 10/31/19 08:21 99/68 10/31/19 05:15 98.5 120 17 96 Nasal Cannula 3.0 I&O- Last 24 Hours up to 6 AM 10/31/19 05:59 Intake Total 500 ml Balance 500 ml Laboratory Data 24H LABS Laboratory Tests 2 10/31/19 01:07: Immature Granulocyte % (Auto) 0.7, Neutrophils (%) (Auto) 87.4H, Lymphocytes (%) (Auto) 5.2L, Monocytes (%) (Auto) 6.5H, Eosinophils (%) (Auto) 0.1, Basophils (%) (Auto) 0.1, Neutrophils # (Auto) 5.9, Lymphocytes # (Auto) 0.4L, Monocytes # (Auto) 0.4, Eosinophils # (Auto) 0.0, Basophils # (Auto) 0.0, Nucleated Red Blood Cells % (auto) 0.0, Prothrombin Time 13.5, Prothromb Time International Ratio 1.01, Activated Partial Thromboplast Time 27.3, Anion Gap 0L, Glomerular Filtration Rate > 60.0, Calcium Level 8.3L, Total Bilirubin 0.3, Direct Bilirubin 0.2, Aspartate Amino Transf (AST/SGOT) 18, Alanine Aminotransferase (ALT/SGPT) 39, Alkaline Phosphatase 145H, Total Creatine Kinase 46, Creatine Kinase MB 7.0H, Creatine Kinase MB Relative Index 15.22H, Troponin I < 0.02, Total Protein 5.8L, Albumin 2.7L, Albumin/Globulin Ratio 0.9, Lipase 41L, Thyroid Stimulating Hormone (TSH) 1.910, Free Thyroxine 0.59L 10/31/19 06:19: Nucleated Red Blood Cells % (auto) 0.0, Anion Gap 1L, Glomerular Filtration Rate > 60.0, Calcium Level 8.3L, Total Creatine Kinase 46, Creatine Kinase MB 7.3H, Creatine Kinase MB Relative Index 15.87H, Troponin I < 0.02, OL-[id number] Natriuretic Peptide 37945G CBC/BMP Laboratory Tests 10/31/19 01:07 10/31/19 06:19 JYOTI TYSON MD Oct 31, 2019 09:03
[2019-10-31] MEDS ORDERED: AMIODARONE HCL 150 MG in IV 1 EA IV ONE (09:30)
[2019-10-31] MEDS ORDERED: AMIODARONE HCL 360 MG in IV 1 EA IV SCH (09:30)
[2019-10-31] MEDS: MAGNESIUM OXIDE 400 MG TAB (MAG-OX) PO SCH (09:52)
[2019-10-31] MEDS: SUCRALFATE 1 GM TAB PO SCH ×4 (09:52→21:08)
[2019-10-31] MEDS: FOLIC ACID 1 MG TAB PO SCH (09:53)
[2019-10-31] MEDS: MULTIVITAMINS/MINERALS THERAP 1 TAB PO SCH (09:53)
[2019-10-31] MEDS: FERROUS SULFATE 325MG TAB PO SCH (09:53)
[2019-10-31] MEDS: PANTOPRAZOLE 40MG TAB (PROTONIX) PO SCH (09:55)
[2019-10-31] MEDS: SERTRALINE HCL 50 MG TAB PO SCH (09:55)
[2019-10-31] MEDS: TAMSULOSIN 0.4 MG CAP PO SCH (09:55)
[2019-10-31 12:00] VITALS: BP 103/75
[2019-10-31] MEDS ORDERED: LEVALBUTEROL 1.25 MG/0.5 ML CONCENTRATE NEB INH PRN (13:45)
[2019-10-31] MEDS ORDERED: methylPREDNISolone 125MG 2ML VIAL IV ONE (14:00)
[2019-10-31 14:03] LABS: CK-MB VALUE MASS 5.6 NG/ML (<3.6); CPK CREATINE PHOSPHOKINASE 40 U/L (39-308); TROPONIN I < 0.02 NG/ML (< 0.10)
--- NOTE | 2019-10-31 14:56 | IPN ---
DATE: 10/31/2019 SUBJECTIVE: The patient continues to have shortness of breath with atrial fibrillation with rapid ventricular response (RVR) rate of 120-121. Blood pressure is 99/60. He is on IV fluids. Denies any chest pain, pressure or tightness. Anticoagulation has been held due to a history of rectal cancer and very high risk of gastrointestinal (GI) bleeding. Per the daughter, the patient has been having red blood through his diaper at home. He says he has black stools at home due to his iron. Otherwise he denies any lightheadedness or dizziness. PHYSICAL EXAMINATION: Vital signs: Temperature 98.5, pulse 120, respiratory rate 17, blood pressure 99/68, 96% on 3 liters nasal cannula. Generally awake, alert, oriented to person only, garbled speech, pleasantly confused. Positive use of respiratory accessory muscles. No nasal flaring, tracheal deviation. No tripod positioning. Laying in bed. Lungs diminished. Crackles bilaterally and bilateral wheezing. Heart S1, S2, irregularly irregular and tachycardic. Abdomen is soft, nontender, nondistended. Positive bowel sounds. Extremities: No cyanosis or clubbing. Trace edema bilateral lower extremities. LABORATORY DATA: White count 7.9, hemoglobin 12, hematocrit 41, platelet count 20. Sodium 135, potassium 4, chloride 98, bicarb 36, BUN 35, creatinine 0.97, glucose 86. Total CK 46. MB fraction 7.3. Relative index 15.8. Troponin less than 0.02. BNP 11,264. ASSESSMENT AND PLAN: A 74-year-old, DO NOT RESUSCITATE, DO NOT INTUBATE, medical orders for life-sustaining treatment (MOLST) form signed with history of recent pneumonia, congestive heart failure with preserved ejection fraction, moderate pulmonary hypertension, PA pressure of 50-60 mmHg, grade 1 left ventricular diastolic dysfunction, moderately severe tricuspid regurgitation, mild aortic regurgitation, trace pulmonic regurgitation, descending thoracic aortic aneurysm measuring 3 x 3.9 cm, recent diagnosis of rectal cancer, GI bleed from duodenal ulcer perforation in March requiring abdominal washout, moderate left ventricular hypertrophy (LVH), chronic respiratory failure with chronic hypoxia and a chronic hypercarbia, 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 The patient is currently at high risk. The patient is currently hypotensive and therefore admitted and had been given IV fluids. IMPRESSION: 1. Atrial fibrillation with rapid ventricular rate. The patient is currently on Atenolol but blood pressure is less than 100. Therefore the patient will be given Amiodarone, IV drip in the ICU. IV fluids have been discontinued due to elevated BNP of 11,000 and shortness of breath. Repeat chest x-ray this morning. We are unable to anticoagulate due to history of rectal mass and increased risk of bleeding. Per the daughter the patient has been having red blood in his diaper. Obtain stool hemoccult. Venous Dopplers are negative for DVT. Unable to obtain inferior vena cava (IVC) filter at [facility] as we do not have Interventional Radiology services. Daughter had requested comfort measures only and hospice once the patient and the daughter who is the health care proxy have discussed it. For now, no anticoagulation has been given due to high risk of bleeding and no immediate plans for transfer to [place] for IVC filter placement. 2. [id number] hypoxic respiratory failure with chronic hypercarbic respiratory failure due to end-stage COPD and new diagnosis of pulmonary embolism. The patient cannot be anticoagulated due to rectal mass with high risk of bleeding. The patient's daughter says that he has red blood in his diapers at home and has been having black stools with prior history of duodenal ulcers and perforation requiring abdominal washout. He is continued on Protonix 40 daily. No plans for any anticoagulation due to a high risk of bleeding, supplemental oxygen to keep O2 saturation greater than 88-92%. 3. COPD in a patient with chronic hypoxic respiratory failure and chronic hypercarbia. The patient has moderate to severe tricuspid regurgitation with pulmonary hypertension with underlying COPD and now new onset atrial fibrillation with RVR with pulmonary embolism. The patient has severe multiple comorbidities and is not an optimal surgical candidate for rectal cancer resection. 4. Recent diagnosis of rectal cancer. The patient has severe comorbid conditions which would make him high risk for surgery per Dr. Currie. According to the daughter the patient is not a surgical candidate and at this time has pulmonary embolism and atrial fibrillation with RVR. Daughter is pushing to have hospice and comfort measures only. We will discuss this with the patient at the bedside. She had requested her daughter Ankita Francis to be able to come into the hospital before visiting hours to discuss comfort measures with the patient. 5. Congestive heart failure, decompensated with preserved systolic function. The patient is currently on Lasix. We will recheck a chest x-ray this morning. He has significant emphysema. Continue on home dose of Lasix. We will add Xopenex to decrease risk of tachycardia. 6. Code status: DO NOT RESUSCITATE, DO NOT INTUBATE. MTDD
[2019-10-31] MEDS: LEVALBUTEROL 1.25 MG/0.5 ML CONCENTRATE NEB INH SCH ×3 (15:21→23:05)
[2019-10-31 15:25] VITALS: BP 111/80
[2019-10-31] MEDS ORDERED: SLF 3 ML SYR IV PRN (15:45)
[2019-10-31 16:00] VITALS: BP 115/71
[2019-10-31] MEDS: AMIODARONE HCL 360 MG in IV 1 EA IV SCH (17:25)
[2019-10-31 20:00] VITALS: BP 106/68
--- NOTE | 2019-10-31 20:33 | ECGEPIP ---
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
[2019-10-31] MEDS: ATORVASTATIN 20 MG TAB PO SCH (21:08)
[2019-10-31] MEDS: SLF 3 ML SYR IV SCH (21:08)
[2019-10-31] MEDS: methylPREDNISolone 125MG 2ML VIAL IV SCH (21:08)
[2019-10-31] MEDS: OLANZapine 5 MG TAB PO SCH (23:50)
[2019-11-01] VITALS: BP 120/75
--- NOTE | 2019-11-01 00:34 | ECGEPIP ---
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
[2019-11-01] MEDS: LEVALBUTEROL 1.25 MG/0.5 ML CONCENTRATE NEB INH SCH ×6 (02:02→23:54)
[2019-11-01] MEDS: methylPREDNISolone 125MG 2ML VIAL IV SCH ×4 (03:32→22:13)
[2019-11-01 04:00] VITALS: BP 119/82
[2019-11-01] MEDS: AMIODARONE HCL 360 MG in IV 1 EA IV SCH (04:20)
[2019-11-01 06:11] LABS: HEMATOCRIT 35.2 % (42.0-52.0); HEMOGLOBIN 10.5 g/dl (13.5-17.5); MEAN CORPUSCULAR HEMOGLOBIN 30.5 pg (27.0-33.0); MEAN CORPUSCULAR HGB CONC 29.8 g/dl (32.0-36.5); MEAN CORPUSCULAR VOLUME 102.3 fl (80.0-96.0); PLATELET COUNT, AUTOMATED 164 10^3/uL (150-450); RED BLOOD COUNT 3.44 10^6/uL (4.30-6.10); WHITE BLOOD COUNT 4.6 10^3/uL (4.0-10.0)
[2019-11-01 06:34] LABS: BLOOD UREA NITROGEN 33 MG/DL (7-18); CALCIUM LEVEL 7.7 MG/DL (8.8-10.2); CARBON DIOXIDE LEVEL 35 MEQ/L (21-32); CHLORIDE LEVEL 97 MEQ/L (98-107); CREATININE FOR GFR 1.04 MG/DL (0.70-1.30); GLOMERULAR FILTRATION RATE > 60.0 (>42); GLUCOSE, FASTING 195 MG/DL (70-100); SODIUM LEVEL 136 MEQ/L (136-145)
[2019-11-01] MEDS: SLF 3 ML SYR IV SCH ×3 (06:35→22:15)
[2019-11-01] MEDS: TIOTROPIUM INHALER/CAPSULE (SPIRIVA) INH SCH (07:23)
[2019-11-01 07:36] VITALS: BP 134/69
[2019-11-01] MEDS: FERROUS SULFATE 325MG TAB PO SCH (08:35)
[2019-11-01] MEDS: MULTIVITAMINS/MINERALS THERAP 1 TAB PO SCH (08:35)
[2019-11-01] MEDS: PANTOPRAZOLE 40MG TAB (PROTONIX) PO SCH (08:35)
[2019-11-01] MEDS: SERTRALINE HCL 50 MG TAB PO SCH (08:35)
[2019-11-01] MEDS: SUCRALFATE 1 GM TAB PO SCH ×4 (08:35→22:13)
[2019-11-01] MEDS: atenoloL 50 MG TAB PO SCH ×2 (08:35→21:00)
[2019-11-01] MEDS: TAMSULOSIN 0.4 MG CAP PO SCH (08:35)
[2019-11-01] MEDS: FOLIC ACID 1 MG TAB PO SCH (08:35)
[2019-11-01] MEDS: MAGNESIUM OXIDE 400 MG TAB (MAG-OX) PO SCH (08:35)
[2019-11-01] MEDS: FUROSEMIDE 20 MG TAB PO SCH ×2 (09:00→10:02)
[2019-11-01] MEDS ORDERED: MORPHINE 2 MG/ML 1ML VIAL (J2270) IV ONE (09:45)
[2019-11-01] MEDS ORDERED: GI COCKTAIL 50ML BTL(HYOSCYAMINE/MAALOX/LIDOCAINE VISCOUS)(1:3:1) PO ONE (10:00)
[2019-11-01] MEDS ORDERED: GI COCKTAIL 50ML BTL(HYOSCYAMINE/MAALOX/LIDOCAINE VISCOUS)(1:3:1) PO PRN (10:00)
[2019-11-01] MEDS ORDERED: NITROGLYCERIN 0.4 MG SUBL TABLET SL SCH (10:00)
--- NOTE | 2019-11-01 10:19 | ECHO ---
DATE OF PROCEDURE: 10/31/2019 Age: 74 Gender: Male Height: 168 cm Weight: 59 kg REFERRING PHYSICIAN: Johnny Trivedi DO INDICATION: Syncope. MEASUREMENTS: 2D Measurements: Left atrium 2.8 cm Aortic root 3.2 cm Proximal ascending aorta 3.7 cm Intraventricular septum 1.61 cm Posterior wall 1.35 cm Inferior vena cava 2.7 cm with marked reduction of respiratory variation Doppler Measurements: No aortic stenosis No aortic regurgitation Aortic valve velocity 86.2 cm/s LVOT velocity 61.4 cm/s Very mild mitral regurgitation No mitral stenosis Mitral E velocity 90.8 cm/s Mitral A velocity 45.4 cm/s Mitral deceleration time 109 msec Severe tricuspid regurgitation Estimated right ventricle systolic pressure of at least 73 mmHg Estimated right atrial pressure of at least 20 mmHg No pulmonic regurgitation MITRAL ANNULAR TISSUE DOPPLER E prime septal 7.5 cm/s, E prime lateral 5.1 cm/s DESCRIPTION: Rhythm was sinus tachycardia. Image quality was fair. This was a 2D, M-mode, color flow Doppler, and pulsed wave Doppler examination including mitral annular tissue Doppler. CONCLUSIONS: 1. Suggestive of severe elevation of estimated right ventricle systolic pressure (at least 73 mmHg). Structurally normal appearing tricuspid leaflets. Severe tricuspid regurgitation. Mild right ventricle dilatation with right ventricle hypertrophy. Normal right ventricle systolic function. Severe atrial dilatation by visual estimate. Inferior vena cava plethora with marked reduction of respiratory variation consistent with severe elevation of estimated central venous pressure. Central venous pressure estimated to be at least 20 mmHg. 2. Mild-moderate concentric left ventricular hypertrophy. Normal regional LV wall motion and wall thickening. Normal LV systolic function. LVEF 70% by visual estimate. Restrictive diastolic LV filling pattern. 3. Appearance of at least moderate left atrial dilatation and quite possible severe left atrial dilatation by visual assessment. 4. No pericardial effusion. 5. Mild aortic valve sclerosis. No aortic regurgitation. 6. Presence of ascites around the liver. Hepatic venous congestion. MTDD
[2019-11-01 10:25] LABS: CK-MB VALUE MASS 3.7 NG/ML (<3.6); CPK CREATINE PHOSPHOKINASE 32 U/L (39-308); MB/CK RELATIVE INDEX 11.56 (< OR =4); TROPONIN I < 0.02 NG/ML (< 0.10)
--- NOTE | 2019-11-01 10:25 | REPVR ---
PROCEDURE INFORMATION: Exam: XR Chest, 1 View Exam date and time: 11/01/2019 9:58 AM Age: 74 years old Clinical indication: Chest pain TECHNIQUE: Imaging protocol: XR of the chest Views: 1 view. COMPARISON: CR PORTABLE CHEST X-RAY 10/31/2019 7:37 AM FINDINGS: Lungs: Increasing pulmonary vascular congestion and interstitial prominence with the interstitial markings being most pronounced at the lung bases. This likely represents a combination of mild edema and atelectasis. No consolidation. Pleural space: Mild blunting of the left costophrenic angle suggesting trace pleural fluid. No evidence of pneumothorax. Heart/Mediastinum: Stable cardiomegaly. Thoracic atherosclerosis. Bones/joints: Bones are stable. Osteopenia. Degenerative changes. IMPRESSION: Cardiomegaly with increasing pulmonary vascular congestion and interstitial prominence, likely a combination of interstitial edema and bibasilar atelectasis. Trace left pleural effusion. Electronically signed by: Dayton Crews On 11/01/2019 10:25:10 AM
[2019-11-01 11:31] VITALS: BP 103/70
--- NOTE | 2019-11-01 13:48 | IPN ---
DATE: 11/01/2019 SUBJECTIVE: Patient still complains of shortness of breath, improved from yesterday now that he is on Solu-Medrol and Xopenex. Remains tachycardic. Atrial fibrillation with rapid ventricular response (RVR) with rate of 81-117, much improved from 120-130 the day before. Currently on amiodarone intravenous drip. Patient denies any hemoptysis, bright red blood per rectum, melena, or black tarry stools. No complaints of headache, changes in vision, upper or lower extremity weakness or paresthesias. Despite not being anticoagulated due to rectal cancer and high risk of bleeding, patient has not had any adverse sequelae from his atrial fibrillation, without any stroke-like symptoms this morning, and despite having pulmonary embolism not being anticoagulated due to rectal cancer and high risk of bleeding, patient does not complain of worsening shortness of breath. Still with slight dyspnea on exertion but no weight gain. PHYSICAL EXAMINATION: Vital signs: Temperature 97.7, pulse 110-117, respiratory rate 18, blood pressure 112/82, 97% on four liters nasal cannula. Generally: Patient is awake, alert, oriented to himself. Patient continues to have conversational dyspnea, about 7-8 words. No use of respiratory accessory muscles. No nasal flare. No tracheal deviation. No tripod positioning. Patient is laying down at 30 degree angle without any jugular venous distension. He does have dry mucous membranes. Appears older than his stated age. Lungs: Diminished with bilateral wheezing. Air entry is improved from yesterday. No crackles, no rhonchi. Heart: S1, S2, tachycardic and irregularly irregular. Patient has a systolic ejection murmur at the left lower sternal border. Abdomen: Soft, nontender, nondistended. Positive bowel sounds. Extremities: Patient has multiple excoriations on the shins bilaterally. No signs of cellulitis. No open ulcers. No pitting edema. Input yesterday was 2135, output of 0, current weight is 61.5 kg. LABORATORY DATA: White count 4.6, hemoglobin 10, hematocrit 35, platelet count 164, sodium 136, potassium 5, chloride 97, bicarbonate 35, BUN 33, creatinine 1.04, glucose of 195. IMAGING STUDIES: Chest x-ray 10/31/2019: Emphysema, no pleural effusion, pneumothorax, cardiomegaly, atherosclerotic disease of the thoracic aorta. ASSESSMENT AND PLAN: This is a 74-year-old male with moderate pulmonary hypertension, moderate to severe tricuspid regurgitation, congestive heart failure, preserved systolic function, diastolic dysfunction, pulmonary artery (PA) pressure 50-60 mmHg, mild aortic regurgitation, trace pulmonic regurgitation, descending thoracic aortic aneurysm measuring 3 x 3.9 cm, and recent diagnosis of rectal carcinoma and gastrointestinal (GI) bleed for duodenal ulcer perforation in March requiring abdominal washout, and chronic hypoxic and hypercarbic respiratory failure, end-stage obstructive lung disease requiring supplemental oxygen, schizophrenia, dyslipidemia, hypertensive heart disease, paroxysmal atrial fibrillation not on anticoagulation due to recent duodenal perforation and rectal cancer, acute peritonitis with Escherichia (E) coli and Citrobacter in March and right lower lobe irregular pulmonary nodule which is new since the previous PET scan, presented to the emergency room with complaints of chest pain and shortness of breath, found to have atrial fibrillation with rapid ventricular response (RVR) and pulmonary embolism. Due to high risk of bleeding with rectal cancer that is untreated and unresectable and patient not being a surgical candidate, patient is currently not anticoagulated. IMPRESSION: 1. Atrial fibrillation with rapid ventricular rate. Patient is still tachycardic despite atenolol 50 twice a day. Patients rate remains at 81-117. Therefore, yesterday, due to systolic pressure of 90, he was given amiodarone intravenous drip for the next 36 hours. His brain natriuretic peptide (BNP) was elevated. IV fluids have been discontinued since the rate has improved. Patients blood pressure has increased satisfactorily to systolic of 100-117 at the bedside. Due to high risk of bleeding with a rectal cancer that is nonresectable in light of patients severe comorbid conditions, he is currently not anticoagulated. This has been explained at length to the patient that he is at risk of CVA as well as worsening hypoxia due to bilateral pulmonary embolism. Patients daughter, who is the healthcare proxy, had requested comfort measures only and hospice, but after a discussion with the patient yesterday he was not ready to do hospice care and wanted to be treated. He is, however, DO NOT RESUSCITATE/DO NOT INTUBATE. At this time, patient is still medically unstable to have an inferior vena cava (IVC) filter placed in [place] since we do not have interventional radiology services here at [facility] this entire week. 2. Acute on chronic hypoxic respiratory failure with chronic hypercarbia due to end-stage chronic obstructive pulmonary disease (COPD) with new diagnosis of pulmonary embolism. Currently, not anticoagulated due to high risk of bleeding from rectal mass that is nonsurgical due to significant comorbid conditions and acute atrial fibrillation with rapid ventricular response (RVR). Patient is being stabilized at this time. It has been discussed with the patient as well as the patients family that he is high risk for worsening hypoxia in light of not being anticoagulated. Inferior vena cava (IVC) was recommended and patients daughter as the healthcare proxy is requesting hospice but the patient is not ready for hospice and wanted active treatment. Once patients atrial fibrillation is rate controlled on amiodarone he may be transferred to [place] for inferior vena cava (IVC) filter placement which he gives permission for. 3. Acute chronic obstructive pulmonary disease (COPD) exacerbation with chronic hypoxic hypercarbic respiratory failure. At this time, patients oxygen saturation is maintained at 88-92%. Due to severe wheezing yesterday he was started on IV Solu-Medrol as well as Xopenex every 4 hours and every [address] has no infiltrate. 4. Recent diagnosis of rectal cancer. Patient had been evaluated by Dr. Herminio Currie, general surgeon, who feels that the patient is not a surgical candidate due to several comorbid conditions that are irreversible including moderate pulmonary hypertension, congestive heart failure, atrial fibrillation with rapid ventricular response (RVR), and acute pulmonary embolism. Patients daughter, who is the healthcare proxy, is requesting hospice and comfort measures but the patient would like to be actively treated. At this time, due to rectal cancer, he is unable to be anticoagulated for atrial fibrillation with recommendations for inferior vena cava (IVC) filter once the patients atrial fibrillation is rate controlled or chemically converts to sinus rhythm. Granddaughter, Ankita Francis, reiterated yesterday, after a long discussion with me at the bedside and the patient, that the patient wants to continue with full treatment but is agreeable to DO NOT RESUSCITATE/DO NOT INTUBATE. 5. Congestive heart failure with preserved systolic function, diastolic dysfunction. Patient had received Lasix initially. Remains in positive balance but chest x-ray shows no decompensation at this time with no pleural effusion or infiltrates. DISPOSITION: Patient is open to going to [place] for inferior vena cava (IVC) filter placement. Will place a call today. Once patients heart rate and bed is available he may be transferred at any time. CODE STATUS: DO NOT RESUSCITATE/DO NOT INTUBATE. MTDD
[2019-11-01 15:40] VITALS: BP 120/70
[2019-11-01 15:54] LABS: CK-MB VALUE MASS 3.2 NG/ML (<3.6); CPK CREATINE PHOSPHOKINASE 28 U/L (39-308); MB/CK RELATIVE INDEX 11.43 (< OR =4); TROPONIN I < 0.02 NG/ML (< 0.10)
--- NOTE | 2019-11-01 19:41 | ECGEPIP ---
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
[2019-11-01 20:00] VITALS: BP 108/86
[2019-11-01] MEDS: ATORVASTATIN 20 MG TAB PO SCH (22:13)
[2019-11-01] MEDS: OLANZapine 5 MG TAB PO SCH (22:14)
[2019-11-02] VITALS: BP 120/80
[2019-11-02] MEDS: methylPREDNISolone 125MG 2ML VIAL IV SCH ×2 (02:28→15:16)
[2019-11-02] MEDS: LEVALBUTEROL 1.25 MG/0.5 ML CONCENTRATE NEB INH SCH ×6 (03:46→23:47)
[2019-11-02 04:00] VITALS: BP 122/79
[2019-11-02 04:47] LABS: HEMATOCRIT 34.4 % (42.0-52.0); HEMOGLOBIN 10.3 g/dl (13.5-17.5); MEAN CORPUSCULAR HEMOGLOBIN 30.4 pg (27.0-33.0); MEAN CORPUSCULAR HGB CONC 29.9 g/dl (32.0-36.5); MEAN CORPUSCULAR VOLUME 101.5 fl (80.0-96.0); PLATELET COUNT, AUTOMATED 154 10^3/uL (150-450); RED BLOOD COUNT 3.39 10^6/uL (4.30-6.10); WHITE BLOOD COUNT 6.4 10^3/uL (4.0-10.0)
[2019-11-02 04:55] LABS: BLOOD UREA NITROGEN 31 MG/DL (7-18); CALCIUM LEVEL 8.4 MG/DL (8.8-10.2); CARBON DIOXIDE LEVEL 40 MEQ/L (21-32); CHLORIDE LEVEL 99 MEQ/L (98-107); CREATININE FOR GFR 0.92 MG/DL (0.70-1.30); GLOMERULAR FILTRATION RATE > 60.0 (>42); GLUCOSE, FASTING 131 MG/DL (70-100); POTASSIUM SERUM 4.3 MEQ/L (3.5-5.1); SODIUM LEVEL 139 MEQ/L (136-145)
[2019-11-02] MEDS: SLF 3 ML SYR IV SCH ×3 (05:39→21:04)
[2019-11-02 08:00] VITALS: BP 134/84
[2019-11-02] MEDS ORDERED: metOLazone 5 MG TAB PO ONE (08:00)
[2019-11-02] MEDS: SUCRALFATE 1 GM TAB PO SCH ×4 (08:25→20:59)
[2019-11-02] MEDS: MULTIVITAMINS/MINERALS THERAP 1 TAB PO SCH (08:25)
[2019-11-02] MEDS: FERROUS SULFATE 325MG TAB PO SCH ×3 (08:25→09:00)
[2019-11-02] MEDS: MAGNESIUM OXIDE 400 MG TAB (MAG-OX) PO SCH (08:25)
[2019-11-02] MEDS: PANTOPRAZOLE 40MG TAB (PROTONIX) PO SCH (08:25)
[2019-11-02] MEDS: TAMSULOSIN 0.4 MG CAP PO SCH (08:26)
[2019-11-02] MEDS: FOLIC ACID 1 MG TAB PO SCH (08:26)
[2019-11-02] MEDS: SERTRALINE HCL 50 MG TAB PO SCH (08:26)
[2019-11-02] MEDS ORDERED: atenoloL 50 MG TAB PO ONE (09:00)
--- NOTE | 2019-11-02 09:20 | IPN ---
DATE: 11/01/2019 Patient has opted not to be transferred to [place] for internal vena cava (IVC) filter placement despite risk of recurrent pulmonary embolism. Patient has a hypercoagulable state with a recent diagnosis of rectal cancer. He has abided by his prior wishes of DO NOT RESUSCITATE, DO NOT INTUBATE and would like to have his heart rate controlled for the atrial fibrillation and not have anticoagulation or IVC filter placement. This has been discussed with his daughter, who is the healthcare proxy, as well as his granddaughter yesterday. Therefore, transfer to [place] will be discontinued. Patient understands that without anticoagulation he is at risk of development further pulmonary embolism, which could progress on to respiratory failure and . He also understands that without anticoagulation his atrial fibrillation will increase his risk of stroke. PLAN: Discontinue transfer to [place]. Patient has refused IVC filter placement. He understands risk of bleeding with anticoagulation and has opted not to be anticoagulated, both for atrial fibrillation and pulmonary embolism. He is, however, not ready for comfort measures only and hospice. He wants to continue treatment for his atrial fibrillation/rate control. [facility]ITAL[facility]ahlia
[2019-11-02] MEDS: FUROSEMIDE 20MG/2ML VIAL (J1940) IV SCH ×3 (09:26→15:16)
[2019-11-02] MEDS ORDERED: NITROGLYCERIN 0.4 MG SUBL TABLET SL PRN (10:15)
[2019-11-02 12:00] VITALS: BP 122/65
[2019-11-02] MEDS ORDERED: atenoloL 25 MG TAB PO ONE (13:30)
[2019-11-02] MEDS ORDERED: DIGOXIN 0.125 MG TAB PO ONE (13:30)
[2019-11-02 15:06] VITALS: BP 117/85
[2019-11-02] MEDS: TIOTROPIUM INHALER/CAPSULE (SPIRIVA) INH SCH (19:18)
[2019-11-02] MEDS: OLANZapine 5 MG TAB PO SCH (20:58)
[2019-11-02] MEDS: ATORVASTATIN 20 MG TAB PO SCH (20:59)
[2019-11-02] MEDS ORDERED: atenoloL 50 MG TAB PO SCH (21:00)
[2019-11-02 22:00] VITALS: BP_SYST 118; BP_DIAS 45; BP_DIAS 85
[2019-11-03] MEDS: methylPREDNISolone 125MG 2ML VIAL IV SCH ×2 (03:27→14:54)
[2019-11-03] MEDS: LEVALBUTEROL 1.25 MG/0.5 ML CONCENTRATE NEB INH SCH ×5 (03:35→20:07)
[2019-11-03] MEDS: SLF 3 ML SYR IV SCH ×3 (05:17→21:55)
[2019-11-03 06:00] VITALS: BP 116/83
[2019-11-03 06:51] LABS: BLOOD UREA NITROGEN 33 MG/DL (7-18); CALCIUM LEVEL 8.4 MG/DL (8.8-10.2); CARBON DIOXIDE LEVEL 39 MEQ/L (21-32); CHLORIDE LEVEL 96 MEQ/L (98-107); CREATININE FOR GFR 0.91 MG/DL (0.70-1.30); DIGOXIN LEVEL 0.4 NG/ML (0.5-2.0); GLOMERULAR FILTRATION RATE > 60.0 (>42); GLUCOSE, FASTING 103 MG/DL (70-100); POTASSIUM SERUM 4.8 MEQ/L (3.5-5.1); SODIUM LEVEL 140 MEQ/L (136-145)
[2019-11-03] MEDS: TIOTROPIUM INHALER/CAPSULE (SPIRIVA) INH SCH (07:22)
[2019-11-03] MEDS ORDERED: DIGOXIN 0.125 MG TAB PO STA (07:37)
[2019-11-03] MEDS ORDERED: atenoloL 50 MG TAB PO ONE (07:45)
[2019-11-03 07:55] LABS: HEMATOCRIT 40.1 % (42.0-52.0); HEMOGLOBIN 11.6 g/dl (13.5-17.5); MEAN CORPUSCULAR HEMOGLOBIN 29.7 pg (27.0-33.0); MEAN CORPUSCULAR HGB CONC 28.9 g/dl (32.0-36.5); MEAN CORPUSCULAR VOLUME 102.8 fl (80.0-96.0); PLATELET COUNT, AUTOMATED 157 10^3/uL (150-450); WHITE BLOOD COUNT 9.1 10^3/uL (4.0-10.0)
[2019-11-03] MEDS: TAMSULOSIN 0.4 MG CAP PO SCH (09:42)
[2019-11-03] MEDS: PANTOPRAZOLE 40MG TAB (PROTONIX) PO SCH (09:42)
[2019-11-03] MEDS: SUCRALFATE 1 GM TAB PO SCH ×4 (09:42→21:54)
[2019-11-03] MEDS: MAGNESIUM OXIDE 400 MG TAB (MAG-OX) PO SCH (09:42)
[2019-11-03] MEDS: SERTRALINE HCL 50 MG TAB PO SCH (09:42)
[2019-11-03] MEDS: MULTIVITAMINS/MINERALS THERAP 1 TAB PO SCH (09:42)
[2019-11-03] MEDS: FOLIC ACID 1 MG TAB PO SCH (09:42)
[2019-11-03] MEDS: FERROUS SULFATE 325MG TAB PO SCH (09:42)
[2019-11-03] MEDS: METOPROLOL TART 50 MG TAB PO SCH ×2 (12:50→17:41)
[2019-11-03 14:00] VITALS: BP 128/76
[2019-11-03] MEDS ORDERED: atenoloL 50 MG TAB PO SCH (21:00)
[2019-11-03] MEDS: OLANZapine 5 MG TAB PO SCH (21:55)
[2019-11-03] MEDS: ATORVASTATIN 20 MG TAB PO SCH (21:55)
[2019-11-03 22:00] VITALS: BP 124/87
[2019-11-04] MEDS: LEVALBUTEROL 1.25 MG/0.5 ML CONCENTRATE NEB INH SCH ×7 (00:27→22:39)
[2019-11-04] MEDS: METOPROLOL TART 50 MG TAB PO SCH ×4 (00:50→17:08)
[2019-11-04] MEDS: methylPREDNISolone 125MG 2ML VIAL IV SCH (03:52)
[2019-11-04 06:00] VITALS: BP 128/72
[2019-11-04] MEDS: SLF 3 ML SYR IV SCH ×3 (06:26→20:35)
[2019-11-04] MEDS: TIOTROPIUM INHALER/CAPSULE (SPIRIVA) INH SCH (07:15)
[2019-11-04 07:53] LABS: HEMATOCRIT 38.1 % (42.0-52.0); HEMOGLOBIN 10.8 g/dl (13.5-17.5); MEAN CORPUSCULAR HEMOGLOBIN 29.6 pg (27.0-33.0); MEAN CORPUSCULAR HGB CONC 28.3 g/dl (32.0-36.5); MEAN CORPUSCULAR VOLUME 104.4 fl (80.0-96.0); PLATELET COUNT, AUTOMATED 146 10^3/uL (150-450); RED BLOOD COUNT 3.65 10^6/uL (4.30-6.10); WHITE BLOOD COUNT 9.5 10^3/uL (4.0-10.0)
[2019-11-04] MEDS: SUCRALFATE 1 GM TAB PO SCH ×4 (08:28→20:07)
[2019-11-04] MEDS: FOLIC ACID 1 MG TAB PO SCH (08:28)
[2019-11-04] MEDS: TAMSULOSIN 0.4 MG CAP PO SCH (08:28)
[2019-11-04] MEDS: SERTRALINE HCL 50 MG TAB PO SCH (08:28)
[2019-11-04] MEDS: PANTOPRAZOLE 40MG TAB (PROTONIX) PO SCH (08:28)
[2019-11-04] MEDS: FERROUS SULFATE 325MG TAB PO SCH (08:29)
[2019-11-04] MEDS: MAGNESIUM OXIDE 400 MG TAB (MAG-OX) PO SCH (08:29)
[2019-11-04] MEDS: MULTIVITAMINS/MINERALS THERAP 1 TAB PO SCH (08:29)
[2019-11-04 08:56] LABS: BLOOD UREA NITROGEN 34 MG/DL (7-18); CARBON DIOXIDE LEVEL 50 MEQ/L (21-32); CHLORIDE LEVEL 94 MEQ/L (98-107); CREATININE FOR GFR 0.87 MG/DL (0.70-1.30); DIGOXIN LEVEL 0.5 NG/ML (0.5-2.0); GLOMERULAR FILTRATION RATE > 60.0 (>42); GLUCOSE, FASTING 99 MG/DL (70-100); POTASSIUM SERUM 4.3 MEQ/L (3.5-5.1); SODIUM LEVEL 141 MEQ/L (136-145)
[2019-11-04] MEDS ORDERED: DIGOXIN 0.25 MG TAB PO ONE (11:00)
[2019-11-04] MEDS: predniSONE 20 MG TAB PO SCH (12:47)
[2019-11-04 14:00] VITALS: BP 129/81
[2019-11-04] MEDS ORDERED: guaiFENesin DM LIQ 10ML UD PO PRN (18:45)
[2019-11-04] MEDS ORDERED: FUROSEMIDE 20MG/2ML VIAL (J1940) IV ONE ×2 (19:00→20:00)
[2019-11-04] MEDS ORDERED: metOLazone 2.5 MG TAB PO ONE (19:30)
--- NOTE | 2019-11-04 20:05 | REPVR ---
PROCEDURE INFORMATION: Exam: XR Chest, 1 View Exam date and time: 11/04/2019 7:06 PM Age: 74 years old Clinical indication: Shortness of breath; Additional info: SOB R/O chf TECHNIQUE: Imaging protocol: XR of the chest Views: 1 view. COMPARISON: CR PORTABLE CHEST X-RAY 11/01/2019 9:50 AM FINDINGS: Lungs: Mild pulmonary vascular prominence. No pulmonary consolidation. Pleural space: No pleural effusion or pneumothorax. Heart/Mediastinum: The heart is enlarged. Bones/joints: No acute bone or joint abnormality. IMPRESSION: Cardiomegaly and mild pulmonary vascular congestion consistent with mild CHF. Electronically signed by: Dami Ortiz On 11/04/2019 20:05:09 PM
[2019-11-04] MEDS: OLANZapine 5 MG TAB PO SCH (20:07)
[2019-11-04] MEDS: ATORVASTATIN 20 MG TAB PO SCH (20:07)
[2019-11-04 22:00] VITALS: BP 134/90
[2019-11-05] MEDS: METOPROLOL TART 50 MG TAB PO SCH ×2 (01:07→05:27)
[2019-11-05] MEDS: LEVALBUTEROL 1.25 MG/0.5 ML CONCENTRATE NEB INH SCH ×5 (03:58→19:17)
[2019-11-05] MEDS: SLF 3 ML SYR IV SCH ×3 (05:28→22:01)
[2019-11-05 06:00] VITALS: BP 124/88
[2019-11-05] MEDS: TIOTROPIUM INHALER/CAPSULE (SPIRIVA) INH SCH (07:19)
[2019-11-05] MEDS: TAMSULOSIN 0.4 MG CAP PO SCH (08:29)
[2019-11-05] MEDS: FERROUS SULFATE 325MG TAB PO SCH (08:29)
[2019-11-05] MEDS: SUCRALFATE 1 GM TAB PO SCH ×4 (08:29→22:00)
[2019-11-05] MEDS: MAGNESIUM OXIDE 400 MG TAB (MAG-OX) PO SCH (08:29)
[2019-11-05] MEDS: predniSONE 20 MG TAB PO SCH (08:29)
[2019-11-05] MEDS: SERTRALINE HCL 50 MG TAB PO SCH (08:29)
[2019-11-05] MEDS: MULTIVITAMINS/MINERALS THERAP 1 TAB PO SCH (08:29)
[2019-11-05] MEDS: FOLIC ACID 1 MG TAB PO SCH (08:30)
[2019-11-05] MEDS: PANTOPRAZOLE 40MG TAB (PROTONIX) PO SCH (08:30)
[2019-11-05 08:49] LABS: HEMATOCRIT 39.9 % (42.0-52.0); HEMOGLOBIN 11.3 g/dl (13.5-17.5); MEAN CORPUSCULAR HGB CONC 28.3 g/dl (32.0-36.5); MEAN CORPUSCULAR VOLUME 102.6 fl (80.0-96.0); PLATELET COUNT, AUTOMATED 163 10^3/uL (150-450); RED BLOOD COUNT 3.89 10^6/uL (4.30-6.10); WHITE BLOOD COUNT 10.4 10^3/uL (4.0-10.0)
[2019-11-05] MEDS ORDERED: metOLazone 2.5 MG TAB PO ONE (09:30)
[2019-11-05 09:43] LABS: BLOOD UREA NITROGEN 30 MG/DL (7-18); CALCIUM LEVEL 9.1 MG/DL (8.8-10.2); CARBON DIOXIDE LEVEL 56 MEQ/L (21-32); CHLORIDE LEVEL 87 MEQ/L (98-107); CREATININE FOR GFR 0.86 MG/DL (0.70-1.30); DIGOXIN LEVEL 0.8 NG/ML (0.5-2.0); GLOMERULAR FILTRATION RATE > 60.0 (>42); GLUCOSE, FASTING 86 MG/DL (70-100); POTASSIUM SERUM 3.6 MEQ/L (3.5-5.1); SODIUM LEVEL 139 MEQ/L (136-145)
[2019-11-05] MEDS: AMIODARONE 200 MG TAB (PACERONE) PO SCH ×3 (10:17→17:32)
[2019-11-05] MEDS: FUROSEMIDE 20MG/2ML VIAL (J1940) IV SCH ×4 (11:15→22:00)
[2019-11-05 14:00] VITALS: BP 129/90
[2019-11-05] MEDS ORDERED: LEVALBUTEROL 1.25 MG/0.5 ML CONCENTRATE NEB INH PRN (16:30)
[2019-11-05] MEDS ORDERED: METOPROLOL TART 50 MG TAB PO ONE (17:00)
[2019-11-05 19:38] VITALS: BP 121/67
[2019-11-05] MEDS ORDERED: AMIODARONE HCL 150 MG in IV 1 EA IV ONE (20:00)
[2019-11-05] MEDS: AMIODARONE HCL 360 MG in IV 1 EA IV SCH (20:54)
[2019-11-05] MEDS: ATORVASTATIN 20 MG TAB PO SCH (22:00)
[2019-11-05] MEDS: OLANZapine 5 MG TAB PO SCH (22:00)
[2019-11-06] VITALS (8 sets, daily range): BP systolic 102–126; BP diastolic 58–73
[2019-11-06] MEDS: FUROSEMIDE 20MG/2ML VIAL (J1940) IV SCH ×6 (01:51→22:42)
[2019-11-06] MEDS: AMIODARONE HCL 360 MG in IV 1 EA IV SCH ×3 (02:30→14:51)
[2019-11-06 04:41] LABS: HEMATOCRIT 40.1 % (42.0-52.0); HEMOGLOBIN 12.1 g/dl (13.5-17.5); MEAN CORPUSCULAR HEMOGLOBIN 29.9 pg (27.0-33.0); MEAN CORPUSCULAR HGB CONC 30.2 g/dl (32.0-36.5); PLATELET COUNT, AUTOMATED 136 10^3/uL (150-450); RED BLOOD COUNT 4.05 10^6/uL (4.30-6.10); WHITE BLOOD COUNT 10.3 10^3/uL (4.0-10.0)
[2019-11-06] MEDS: SLF 3 ML SYR IV SCH ×3 (06:00→22:42)
[2019-11-06] MEDS: METOPROLOL TART 50 MG TAB PO SCH ×4 (06:00→17:42)
[2019-11-06 06:27] LABS: BLOOD UREA NITROGEN 32 MG/DL (7-18); CREATININE FOR GFR 0.96 MG/DL (0.70-1.30); GLOMERULAR FILTRATION RATE > 60.0 (>42); GLUCOSE, FASTING 75 MG/DL (70-100)
[2019-11-06 06:28] LABS: CARBON DIOXIDE LEVEL 58 MEQ/L (21-32); CHLORIDE LEVEL 79 MEQ/L (98-107); POTASSIUM SERUM 3.3 MEQ/L (3.5-5.1); SODIUM LEVEL 138 MEQ/L (136-145)
[2019-11-06] MEDS ORDERED: POTASSIUM CHLORIDE 10 MEQ SR TABLET As Ordered ONE (06:50)
[2019-11-06] MEDS ORDERED: POTASSIUM CHLORIDE 10 MEQ SR TABLET PO ONE ×2 (07:00→09:30)
--- NOTE | 2019-11-06 07:13 | REPVR ---
PROCEDURE INFORMATION: Exam: XR Chest, 1 View Exam date and time: 11/06/2019 6:59 AM Age: 74 years old Clinical indication: Shortness of breath; Additional info: SOB TECHNIQUE: Imaging protocol: XR of the chest Views: 1 view. COMPARISON: CR PORTABLE CHEST X-RAY 11/04/2019 7:01 PM FINDINGS: Lungs: Nonspecific bilateral perihilar reticulonodular opacities.. No consolidation. Pleural space: Unremarkable. No pleural effusion. No pneumothorax. Heart/Mediastinum: Unremarkable. No cardiomegaly. Vasculature: Atherosclerotic disease of the thoracic aorta. Bones/joints: Osteopenia. Degenerative changes bilateral shoulders. IMPRESSION: No acute findings. Electronically signed by: Sheldon Romeo On 11/06/2019 07:12:43 AM
[2019-11-06] MEDS: LEVALBUTEROL 1.25 MG/0.5 ML CONCENTRATE NEB INH SCH ×4 (08:07→19:47)
[2019-11-06] MEDS: TIOTROPIUM INHALER/CAPSULE (SPIRIVA) INH SCH (08:08)
[2019-11-06] MEDS: FERROUS SULFATE 325MG TAB PO SCH (09:04)
[2019-11-06] MEDS: SERTRALINE HCL 50 MG TAB PO SCH (09:04)
[2019-11-06] MEDS: TAMSULOSIN 0.4 MG CAP PO SCH (09:04)
[2019-11-06] MEDS: predniSONE 20 MG TAB PO SCH (09:05)
[2019-11-06] MEDS: MULTIVITAMINS/MINERALS THERAP 1 TAB PO SCH (09:05)
[2019-11-06] MEDS: FOLIC ACID 1 MG TAB PO SCH (09:05)
[2019-11-06] MEDS: PANTOPRAZOLE 40MG TAB (PROTONIX) PO SCH (09:05)
[2019-11-06] MEDS: MAGNESIUM OXIDE 400 MG TAB (MAG-OX) PO SCH (09:05)
[2019-11-06] MEDS: SUCRALFATE 1 GM TAB PO SCH ×4 (09:05→20:18)
[2019-11-06] MEDS: OLANZapine 5 MG TAB PO SCH (20:17)
[2019-11-06] MEDS: ATORVASTATIN 20 MG TAB PO SCH (20:18)
[2019-11-07] VITALS (8 sets, daily range): BP systolic 103–160; BP diastolic 60–96
[2019-11-07] MEDS: METOPROLOL TART 50 MG TAB PO SCH ×3 (00:40→12:00)
[2019-11-07] MEDS: FUROSEMIDE 20MG/2ML VIAL (J1940) IV SCH ×2 (01:59→05:55)
[2019-11-07 05:10] LABS: BASO % 0.1 % (0.0-1.0); EOS % 0.3 % (0.0-3.0); HEMATOCRIT 40.1 % (42.0-52.0); HEMOGLOBIN 11.9 g/dl (13.5-17.5); LYMPH # 0.5 10^3/uL (1.5-5.0); LYMPH % 5.1 % (24.0-44.0); MEAN CORPUSCULAR HEMOGLOBIN 29.9 pg (27.0-33.0); MEAN CORPUSCULAR HGB CONC 29.7 g/dl (32.0-36.5); MEAN CORPUSCULAR VOLUME 100.8 fl (80.0-96.0); MONO # 0.7 10^3/uL (0.0-0.8); NEUTROPHILS % 86.5 % (36.0-66.0); PLATELET COUNT, AUTOMATED 147 10^3/uL (150-450); RED BLOOD COUNT 3.98 10^6/uL (4.30-6.10); WHITE BLOOD COUNT 9.2 10^3/uL (4.0-10.0)
[2019-11-07 05:48] LABS: BLOOD UREA NITROGEN 33 MG/DL (7-18); CALCIUM LEVEL 8.6 MG/DL (8.8-10.2); CHLORIDE LEVEL 72 MEQ/L (98-107); CREATININE FOR GFR 0.81 MG/DL (0.70-1.30); GLOMERULAR FILTRATION RATE > 60.0 (>42); GLUCOSE, FASTING 102 MG/DL (70-100); MAGNESIUM LEVEL 1.7 MG/DL (1.8-2.4); POTASSIUM SERUM 3.6 MEQ/L (3.5-5.1); SODIUM LEVEL 138 MEQ/L (136-145)
[2019-11-07] MEDS: SLF 3 ML SYR IV SCH ×3 (05:55→20:27)
[2019-11-07 06:50] LABS: CARBON DIOXIDE LEVEL 67 MEQ/L (21-32)
[2019-11-07] MEDS: LEVALBUTEROL 1.25 MG/0.5 ML CONCENTRATE NEB INH SCH ×4 (07:55→19:57)
[2019-11-07] MEDS: TIOTROPIUM INHALER/CAPSULE (SPIRIVA) INH SCH (07:55)
[2019-11-07] MEDS ORDERED: MAG SULF 1GM/100ML (MAG RUN) 1 GM in IV 1 EA IV ONE (08:00)
[2019-11-07] MEDS: SUCRALFATE 1 GM TAB PO SCH ×4 (08:13→20:27)
[2019-11-07] MEDS: SERTRALINE HCL 50 MG TAB PO SCH (08:13)
[2019-11-07] MEDS: AMIODARONE 200 MG TAB (PACERONE) PO SCH ×2 (08:13→20:26)
[2019-11-07] MEDS: FOLIC ACID 1 MG TAB PO SCH (08:13)
[2019-11-07] MEDS: FERROUS SULFATE 325MG TAB PO SCH (08:14)
[2019-11-07] MEDS: predniSONE 20 MG TAB PO SCH (08:14)
[2019-11-07] MEDS: MAGNESIUM OXIDE 400 MG TAB (MAG-OX) PO SCH (08:14)
[2019-11-07] MEDS: POTASSIUM CHLORIDE 10 MEQ SR TABLET PO SCH (08:14)
[2019-11-07] MEDS: MULTIVITAMINS/MINERALS THERAP 1 TAB PO SCH (08:14)
[2019-11-07] MEDS: PANTOPRAZOLE 40MG TAB (PROTONIX) PO SCH (08:14)
[2019-11-07] MEDS: TAMSULOSIN 0.4 MG CAP PO SCH (08:15)
[2019-11-07] MEDS ORDERED: DIGOXIN INJ 0.5 MG/2 ML AMP (J1160) IV ONE ×3 (10:30→17:30)
--- NOTE | 2019-11-07 13:32 | IPNPDOC ---
Subjective Date Seen The patient was seen on 11/07/19. Subjective Chief Complaint/HPI No new complaints this morning. Wants to go home. Breathing at baseline. Feels weak. Had a good bowel movement this am. No palpitation or dizziness. Objective Physical Examination General Exam: Positive: Alert, Cooperative, No Acute Distress Eye Exam: Positive: PERRLA, Conjunctiva & lids normal, EOMI; Negative: Sclera icteric ENT Exam: Positive: Atraumatic, Mucous membr. moist/pink, Pharynx Normal Neck Exam: Positive: Supple; Negative: JVD, thyromegaly Chest Exam: Positive: Diminished Heart Exam: Positive: Tachycardic, Irregular Rhythm Telemetry: Positive: Atrial fibrillation Abdomen Exam: Positive: Normal bowel sounds, Soft, Other (distended.) Extremity Exam: Positive: Edema (bipedal 2+) Assessment /Plan Assessment Patient is a 74 year old male presenting with chief complaint of chest pain. He states he was at home and stood up to get out of bed when he became dizzy, de veloped sudden onset left sided chest pain, then fell to the floor, losing consciousness (he is unaware for how long or if it was witnessed), he was found by his granddaughter who called EMS. He denies this ever happening previously and states the chest pain is still present but is less than it was prior. In the ED he was hypotensive with EKG demonstrating sinus tachycardia at a rate of 121 with unremarkable work-up but CT angiogram demonstrating left lower lobe segmental and subsegmental pulmonary emboli. He was admitted for Acute PE, Syncope. Acute on chronic respiratory failure,Hypotension. He also developed CHF exacerbation after fluid resuscitation, Afib with RVR, and COPD exacerbation . Paroxysmal Atrial fibrillation with rapid ventricular rate. rate remains uncontrolled. received Amiodarone IV, started on on amiodarone po could not get all doses of metoprolol due to low bps loading with IV dig today. will reduce metoprolol to 50 bid. Acute DVT and Pulmonary embolism Cannot be anticoagulated due to untreatable rectal cancer which bleeds intermittently causing severe blood loss anemia requiring transfusions patient refused IVC filter placement. Acute on chronic resp failure with hypoxia and hypercarbia due to Pulmonary embolism , copd exacerbation continue home oxygen will stop Lasix as bicarb up to 67. Though still has significant edema from corpulmonale. I expect we will never be able to make be completely edema free as aggressive diuresis raises his bicarb/ pCo2 too much. His baseline bicarb is about 45 to 50 with Pco2 in Abg of 80 to 90 COPD exacerbation/Severe pulmonary hypertension resolved on oral steroids. continue nebs and inhalers Rectal cancer diagnosed in september 2019 Patient had been evaluated by Dr. Herminio Currie, general surgeon, who feels that the patient is not a surgical candidate due to comorbid conditions Cancer is unresectable and bleeds intermittently Patient does not want Hospice H/o Peptic ulcer disease/ duodenal ulcer perforation in Mar 2019 s/p ex laparotomy and abdominal washout though perforation was not seen. continue PPI. Acute on Chronic diastolic congestive heart failure (CHF)/ Severe tricuspid regurgitation/ Severe pulmonary hypertension received IV lasix. Schizophrenia/ Depression. home meds Hyperlipidemia. resolved with weight loss. H/o Hypertension with severe hypertensive heart disease or possibly hypertrophic cardiomyopathy now resolved with severe weight loss. Severe protein calorie malnutrition. due to progressive cancer Possible complex partial seizures. home meds BPH with recurrent urinary retentions will try trial of void. Hypothyroid synthroid. Plan/VTE VTE Prophylaxis Ordered?: Yes VS, I&O, 24H, Fishbone Vital Signs/I&O Vital Signs Date Time Temp Pulse Resp B/P (MAP) Pulse Ox O2 Delivery O2 Flow Rate FiO2 11/07/19 12:00 97.9 126 21 103/60 (74) 96 Nasal Cannula 4.0 I&O- Last 24 Hours up to 6 AM 11/07/19 06:00 Intake Total 2023 ml Output Total 6325 ml Balance -4302 ml Laboratory Data 24H LABS Laboratory Tests 2 11/07/19 04:46: Immature Granulocyte % (Auto) 1.0, Neutrophils (%) (Auto) 86.5H, Lymphocytes (%) (Auto) 5.1L, Monocytes (%) (Auto) 7.0H, Eosinophils (%) (Auto) 0.3, Basophils (%) (Auto) 0.1, Neutrophils # (Auto) 8.0, Lymphocytes # (Auto) 0.5L, Monocytes # (Auto) 0.7, Eosinophils # (Auto) 0.0, Basophils # (Auto) 0.0, Nucleated Red Blood Cells % (auto) 0.0, Anion Gap , Glomerular Filtration Rate > 60.0, Calcium Level 8.6L, Magnesium Level 1.7L CBC/BMP Laboratory Tests 11/07/19 04:46 ELIAS MORROW MD Nov 07, 2019 13:32
[2019-11-07] MEDS ORDERED: atenoloL 50 MG TAB PO ONE (17:30)
[2019-11-07] MEDS: OLANZapine 5 MG TAB PO SCH (20:27)
[2019-11-07] MEDS: ATORVASTATIN 20 MG TAB PO SCH (20:27)
--- NOTE | 2019-11-07 20:27 | ECGEPIP ---
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
[2019-11-07] MEDS ORDERED: METOPROLOL TART 50 MG TAB PO SCH (21:00)
[2019-11-08] VITALS (7 sets, daily range): BP systolic 92–114; BP diastolic 50–62
[2019-11-08] MEDS: SLF 3 ML SYR IV SCH ×3 (03:08→21:10)
[2019-11-08 05:40] LABS: EOS # 0.1 10^3/uL (0.0-0.5); EOS % 0.5 % (0.0-3.0); HEMATOCRIT 38.6 % (42.0-52.0); HEMOGLOBIN 11.6 g/dl (13.5-17.5); LYMPH # 0.7 10^3/uL (1.5-5.0); LYMPH % 7.2 % (24.0-44.0); MEAN CORPUSCULAR HEMOGLOBIN 30.1 pg (27.0-33.0); MEAN CORPUSCULAR HGB CONC 30.1 g/dl (32.0-36.5); MEAN CORPUSCULAR VOLUME 100.3 fl (80.0-96.0); MONO # 0.6 10^3/uL (0.0-0.8); MONO % 6.6 % (0.0-5.0); NEUTROPHILS # 7.8 10^3/uL (1.5-8.5); NEUTROPHILS % 85.2 % (36.0-66.0); PLATELET COUNT, AUTOMATED 151 10^3/uL (150-450); RED BLOOD COUNT 3.85 10^6/uL (4.30-6.10); WHITE BLOOD COUNT 9.2 10^3/uL (4.0-10.0)
[2019-11-08 06:08] LABS: BLOOD UREA NITROGEN 37 MG/DL (7-18); CALCIUM LEVEL 9.2 MG/DL (8.8-10.2); CHLORIDE LEVEL 79 MEQ/L (98-107); GLOMERULAR FILTRATION RATE > 60.0 (>42); GLUCOSE, FASTING 89 MG/DL (70-100); MAGNESIUM LEVEL 2.3 MG/DL (1.8-2.4); POTASSIUM SERUM 3.9 MEQ/L (3.5-5.1); SODIUM LEVEL 138 MEQ/L (136-145)
[2019-11-08 06:27] LABS: CARBON DIOXIDE LEVEL 61 MEQ/L (21-32)
[2019-11-08] MEDS: TIOTROPIUM INHALER/CAPSULE (SPIRIVA) INH SCH (07:22)
[2019-11-08] MEDS: LEVALBUTEROL 1.25 MG/0.5 ML CONCENTRATE NEB INH SCH ×4 (07:23→20:04)
[2019-11-08] MEDS: TAMSULOSIN 0.4 MG CAP PO SCH (09:17)
[2019-11-08] MEDS: SUCRALFATE 1 GM TAB PO SCH ×4 (09:18→20:50)
[2019-11-08] MEDS: POTASSIUM CHLORIDE 10 MEQ SR TABLET PO SCH (09:18)
[2019-11-08] MEDS: FERROUS SULFATE 325MG TAB PO SCH (09:19)
[2019-11-08] MEDS: FOLIC ACID 1 MG TAB PO SCH (09:19)
[2019-11-08] MEDS: AMIODARONE 200 MG TAB (PACERONE) PO SCH ×2 (09:19→20:56)
[2019-11-08] MEDS: SERTRALINE HCL 50 MG TAB PO SCH (09:19)
[2019-11-08] MEDS: atenoloL 50 MG TAB PO SCH ×2 (09:20→20:56)
[2019-11-08] MEDS: predniSONE 10 MG TAB PO SCH (09:20)
[2019-11-08] MEDS: PANTOPRAZOLE 40MG TAB (PROTONIX) PO SCH (09:21)
[2019-11-08] MEDS: MAGNESIUM OXIDE 400 MG TAB (MAG-OX) PO SCH (09:21)
[2019-11-08] MEDS: MULTIVITAMINS/MINERALS THERAP 1 TAB PO SCH (09:21)
[2019-11-08] MEDS: DIGOXIN 0.125 MG TAB PO SCH (09:21)
--- NOTE | 2019-11-08 11:24 | IPNPDOC ---
Subjective Date Seen The patient was seen on 11/08/19. Subjective Chief Complaint/HPI complains of abdominal swelling and umbilical hernia popping out when he sits up. No abdominal pain or nausea or vomiting. Says feels tight when he sits up. Objective Physical Examination General Exam: Positive: Alert, Cooperative, No Acute Distress Eye Exam: Positive: PERRLA, Conjunctiva & lids normal, EOMI; Negative: Sclera icteric ENT Exam: Positive: Atraumatic, Mucous membr. moist/pink, Pharynx Normal Neck Exam: Positive: Supple; Negative: JVD, thyromegaly Chest Exam: Positive: Diminished Heart Exam: Positive: Tachycardic, Irregular Rhythm Telemetry: Positive: Atrial fibrillation Abdomen Exam: Positive: Normal bowel sounds, Soft, Hernia (umbilical hernia), Other (distended, ascites present); Negative: Tenderness Extremity Exam: Positive: Edema (bipedal 2+) Assessment /Plan Assessment Patient is a 74 year old male presenting with chief complaint of chest pain. He states he was at home and stood up to get out of bed when he became dizzy, developed sudden onset left sided chest pain, then fell to the floor, losing consciousness (he is unaware for how long or if it was witnessed), he was found by his granddaughter who called EMS. He denies this ever happening previously and states the chest pain is still present but is less than it was prior. In the ED he was hypotensive with EKG demonstrating sinus tachycardia at a rate of 121 with unremarkable work-up but CT angiogram demonstrating left lower lobe segmental and subsegmental pulmonary emboli. He was admitted for Acute PE, Syncope. Acute on chronic respiratory failure,Hypotension. He also developed CHF exacerbation after fluid resuscitation, Afib with RVR, and COPD exacerbation. Umbilical hernia abdominal swelling has some ascites will get abd US and possible tap Paroxysmal Atrial fibrillation/ Aflutter with rapid ventricular rate. rate controlled today. received Amiodarone IV, started on on amiodarone po. also started on atenolol po. loaded with dig IV. Now will continue po dig Acute DVT and Pulmonary embolism Cannot be anticoagulated due to untreatable rectal cancer which bleeds int ermittently causing severe blood loss anemia requiring transfusions patient refused IVC filter placement. Acute on chronic resp failure with hypoxia and hypercarbia due to Pulmonary embolism , copd exacerbation continue home oxygen will stop Lasix as bicarb up to 67. Though still has significant edema from corpulmonale. I expect we will never be able to make be completely edema free as aggressive diuresis raises his bicarb/ pCo2 too much. His baseline bicarb is about 45 to 50 with Pco2 in Abg of 80 to 90 COPD exacerbation/Severe pulmonary hypertension resolved on oral steroids. continue nebs and inhalers Rectal cancer diagnosed in september 2019 Patient had been evaluated by Dr. Herminio Currie, general surgeon, who feels that the patient is not a surgical candidate due to comorbid conditions Cancer is unresectable and bleeds intermittently Patient does not want Hospice H/o Peptic ulcer disease/ duodenal ulcer perforation in Mar 2019 s/p ex laparotomy and abdominal washout though perforation was not seen. continue PPI. Acute on Chronic diastolic congestive heart failure (CHF)/ Severe tricuspid regurgitation/ Severe pulmonary hypertension received IV lasix. Schizophrenia/ Depression. home meds Hyperlipidemia. resolved with weight loss. H/o Hypertension with severe hypertensive heart disease or possibly hypertrophic cardiomyopathy now resolved with severe weight loss. Severe protein calorie malnutrition. due to progressive cancer Possible complex partial seizures. home meds BPH with recurrent urinary retentions will try trial of void. Hypothyroid synthroid. Plan/VTE VTE Prophylaxis Ordered?: Yes VS, I&O, 24H, Fishbone Vital Signs/I&O Vital Signs Date Time Temp Pulse Resp B/P (MAP) Pulse Ox O2 Delivery O2 Flow Rate FiO2 11/08/19 09:21 83 11/08/19 08:06 4.0 11/08/19 08:00 98.3 22 112/55 (74) 91 Nasal Cannula I&O- Last 24 Hours up to 6 AM 11/08/19 06:00 Intake Total 510 ml Output Total 700 ml Balance -190 ml Laboratory Data 24H LABS Laboratory Tests 2 11/08/19 04:58: Immature Granulocyte % (Auto) 0.5, Neutrophils (%) (Auto) 85.2H, Lymphocytes (%) (Auto) 7.2L, Monocytes (%) (Auto) 6.6H, Eosinophils (%) (Auto) 0.5, Basophils (%) (Auto) 0.0, Neutrophils # (Auto) 7.8, Lymphocytes # (Auto) 0.7L, Monocytes # (Auto) 0.6, Eosinophils # (Auto) 0.1, Basophils # (Auto) 0.0, Nucleated Red Blood Cells % (auto) 0.0, Anion Gap , Glomerular Filtration Rate > 60.0, Calcium Level 9.2, Magnesium Level 2.3 CBC/BMP Laboratory Tests 11/08/19 04:58 ELIAS MORROW MD Nov 08, 2019 11:24
--- NOTE | 2019-11-08 14:25 | REPVR ---
PROCEDURE INFORMATION: Exam: US Abdomen; Limited Exam date and time: 11/08/2019 2:10 PM Age: 74 years old Clinical indication: Screening exam; Other: Eval for ascites; Additional info: Evaluate for ascites and possible tap TECHNIQUE: Imaging protocol: US abdomen. Real time ultrasound with image documentation. Limited exam focused on the region of clinical interest. COMPARISON: CT ABD/PEL W/IV CONTRAST ONLY 04/08/2019 9:53 PM FINDINGS: Left kidney: Large left renal cysts, incompletely evaluated. Intraperitoneal space: No evidence of ascites. IMPRESSION: No appreciable ascites. Electronically signed by: Dorinda Coffey On 11/08/2019 14:25:33 PM
[2019-11-08] MEDS: OLANZapine 5 MG TAB PO SCH (20:50)
[2019-11-08] MEDS: ATORVASTATIN 20 MG TAB PO SCH (20:56)
[2019-11-09] VITALS: BP 137/65
[2019-11-09 04:00] VITALS: BP 119/60
[2019-11-09 05:56] LABS: BASO % 0.1 % (0.0-1.0); EOS % 0.2 % (0.0-3.0); HEMATOCRIT 35.8 % (42.0-52.0); HEMOGLOBIN 10.6 g/dl (13.5-17.5); LYMPH # 0.6 10^3/uL (1.5-5.0); LYMPH % 5.4 % (24.0-44.0); MEAN CORPUSCULAR HEMOGLOBIN 30.4 pg (27.0-33.0); MEAN CORPUSCULAR HGB CONC 29.6 g/dl (32.0-36.5); MEAN CORPUSCULAR VOLUME 102.6 fl (80.0-96.0); MONO # 0.7 10^3/uL (0.0-0.8); NEUTROPHILS # 9.6 10^3/uL (1.5-8.5); NEUTROPHILS % 87.9 % (36.0-66.0); PLATELET COUNT, AUTOMATED 140 10^3/uL (150-450); RED BLOOD COUNT 3.49 10^6/uL (4.30-6.10); WHITE BLOOD COUNT 10.9 10^3/uL (4.0-10.0)
[2019-11-09 06:39] LABS: BLOOD UREA NITROGEN 36 MG/DL (7-18); CALCIUM LEVEL 9.2 MG/DL (8.8-10.2); CARBON DIOXIDE LEVEL 58 MEQ/L (21-32); CHLORIDE LEVEL 84 MEQ/L (98-107); CREATININE FOR GFR 0.88 MG/DL (0.70-1.30); GLOMERULAR FILTRATION RATE > 60.0 (>42); GLUCOSE, FASTING 72 MG/DL (70-100); MAGNESIUM LEVEL 2.2 MG/DL (1.8-2.4); SODIUM LEVEL 139 MEQ/L (136-145)
[2019-11-09] MEDS: SLF 3 ML SYR IV SCH ×3 (06:51→21:22)
[2019-11-09] MEDS: TIOTROPIUM INHALER/CAPSULE (SPIRIVA) INH SCH (07:14)
[2019-11-09] MEDS: LEVALBUTEROL 1.25 MG/0.5 ML CONCENTRATE NEB INH SCH ×4 (07:14→19:36)
[2019-11-09 08:00] VITALS: BP 97/62
[2019-11-09] MEDS: MAGNESIUM OXIDE 400 MG TAB (MAG-OX) PO SCH (09:16)
[2019-11-09] MEDS: predniSONE 10 MG TAB PO SCH (09:16)
[2019-11-09] MEDS: PANTOPRAZOLE 40MG TAB (PROTONIX) PO SCH (09:16)
[2019-11-09] MEDS: SERTRALINE HCL 50 MG TAB PO SCH (09:16)
[2019-11-09] MEDS: FERROUS SULFATE 325MG TAB PO SCH (09:16)
[2019-11-09] MEDS: POTASSIUM CHLORIDE 10 MEQ SR TABLET PO SCH (09:16)
[2019-11-09] MEDS: atenoloL 50 MG TAB PO SCH ×2 (09:21→21:24)
[2019-11-09] MEDS: FOLIC ACID 1 MG TAB PO SCH (09:22)
[2019-11-09] MEDS: AMIODARONE 200 MG TAB (PACERONE) PO SCH ×2 (09:22→21:21)
[2019-11-09] MEDS: DIGOXIN 0.125 MG TAB PO SCH (09:22)
[2019-11-09] MEDS: SUCRALFATE 1 GM TAB PO SCH ×4 (09:22→21:21)
[2019-11-09] MEDS: MULTIVITAMINS/MINERALS THERAP 1 TAB PO SCH (09:22)
[2019-11-09] MEDS: TAMSULOSIN 0.4 MG CAP PO SCH (09:23)
[2019-11-09 12:00] VITALS: BP 109/58
--- NOTE | 2019-11-09 13:31 | IPNPDOC ---
Subjective Date Seen The patient was seen on 11/09/19. Subjective Chief Complaint/HPI No new complaints though says the abdomen is still distended and the hernia keeps popping out when he sits up. No pain. No fever or chills, no palpitation. Patient is alert and oriented. He wants to go home. He refused to go to shelter or hospice house. He does not want hospice. I said if i discharge him home it will be very unsafe. He may fall, pass out without anyone to help him at home. i explained again about the cancer and asked if it can be arrested . I explained it is terminal and no treatment is available and he probably has a few weeks to months. I urged him to get his affairs in order. He started getting upset " Why do you have to go on and on about it". I explained that i want ot make sure he understands everything and make the correct decision. He still wants to go home . Says his daughter and grand daughter will help as much as they can. I did say that he may go to sleep and not wake up he responded "That's the best way to go. Whatever happens will happen". Objective Physical Examination General Exam: Positive: Alert, Cooperative, No Acute Distress Eye Exam: Positive: PERRLA, Conjunctiva & lids normal, EOMI; Negative: Sclera icteric ENT Exam: Positive: Atraumatic, Mucous membr. moist/pink, Pharynx Normal Neck Exam: Positive: Supple; Negative: JVD, thyromegaly Chest Exam: Positive: Diminished Heart Exam: Positive: Tachycardic, Irregular Rhythm Telemetry: Positive: Atrial fibrillation Abdomen Exam: Positive: Normal bowel sounds, Soft, Hernia (umbilical hernia), Other (distended, ascites present); Negative: Tenderness Extremity Exam: Positive: Edema (bipedal 2+) Assessment /Plan Assessment Patient is a 74 year old male presenting with chief complaint of chest pain. He states he was at home and stood up to get out of bed when he became dizzy, developed sudden onset left sided chest pain, then fell to the floor, losing consciousness (he is unaware for how long or if it was witnessed), he was found by his granddaughter who called EMS. He denies this ever happening previously and states the chest pain is still present but is less than it was prior. In the ED he was hypotensive with EKG demonstrating sinus tachycardia at a rate of 121 with unremarkable work-up but CT angiogram demonstrating left lower lobe segmental and subsegmental pulmonary emboli. He was admitted for Acute PE, Syncope. Acute on chronic respiratory failure,Hypotension. He also developed CHF exacerbation after fluid resuscitation, Afib with RVR, and COPD ex acerbation. Umbilical hernia/ abdominal distension abdominal swelling has some ascites however not enough to tap May be gaseous distension with poor abdominal muscle tone rule out obs. will continue bowel regimen will get at abdominal xray for the distension. With the rectal cancer he may develop bowel obstruction at any point. Paroxysmal Atrial fibrillation/ Aflutter with rapid ventricular rate. rate controlled today. received Amiodarone IV, started on on amiodarone po. also started on atenolol po. loaded with dig IV. Now will continue po dig Acute DVT and Pulmonary embolism Cannot be anticoagulated due to untreatable rectal cancer which bleeds intermittently causing severe blood loss anemia requiring transfusions patient refused IVC filter placement. Acute on chronic resp failure with hypoxia and hypercarbia due to Pulmonary embolism , copd exacerbation continue home oxygen will stop Lasix as bicarb up to 67. Though still has significant edema from corpulmonale. I expect we will never be able to make be completely edema free as aggressive diuresis raises his bicarb/ pCo2 too much. His baseline bicarb is about 45 to 50 with Pco2 in Abg of 80 to 90 COPD exacerbation/Severe pulmonary hypertension resolved on oral steroids. continue nebs and inhalers Rectal cancer diagnosed in september 2019 Patient had been evaluated by Dr. Herminio Currie, general surgeon, who feels that the patient is not a surgical candidate due to comorbid conditions Cancer is unresectable and bleeds intermittently Patient does not want Hospice H/o Peptic ulcer disease/ duodenal ulcer perforation in Mar 2019 s/p ex laparotomy and abdominal washout though perforation was not seen. continue PPI. Acute on Chronic diastolic congestive heart failure (CHF)/ Severe tricuspid regurgitation/ Severe pulmonary hypertension received IV lasix. Schizophrenia/ Depression. home meds Hyperlipidemia. resolved with weight loss. H/o Hypertension with severe hypertensive heart disease or possibly hypertrophic cardiomyopathy now resolved with severe weight loss. Severe protein calorie malnutrition. due to progressive cancer Possible complex partial seizures. home meds BPH with recurrent urinary retentions will try trial of void. Hypothyroid synthroid. Plan/VTE VTE Prophylaxis Ordered?: Yes VS, I&O, 24H, Dania Vital Signs/I&O Vital Signs Date Time Temp Pulse Resp B/P (MAP) Pulse Ox O2 Delivery O2 Flow Rate FiO2 11/09/19 04:00 4.0 11/09/19 04:00 97.4 56 18 119/60 (79) 98 Nasal Cannula I&O- Last 24 Hours up to 6 AM 11/09/19 06:59 Intake Total 1170 ml Output Total 0 ml Balance 1170 ml Laboratory Data 24H LABS Laboratory Tests 2 11/09/19 05:39: Immature Granulocyte % (Auto) 0.4, Neutrophils (%) (Auto) 87.9H, Lymphocytes (%) (Auto) 5.4L, Monocytes (%) (Auto) 6.0H, Eosinophils (%) (Auto) 0.2, Basophils (%) (Auto) 0.1, Neutrophils # (Auto) 9.6H, Lymphocytes # (Auto) 0.6L, Monocytes # (Auto) 0.7, Eosinophils # (Auto) 0.0, Basophils # (Auto) 0.0, Nucleated Red Blood Cells % (auto) 0.0 CBC/BMP Laboratory Tests 11/09/19 05:39 ELIAS MORROW MD Nov 09, 2019 06:09
--- NOTE | 2019-11-09 14:18 | REPVR ---
PROCEDURE INFORMATION: Exam: XR Abdomen, 1 View Exam date and time: 11/09/2019 1:58 PM Age: 74 years old Clinical indication: Abdominal pain; Additional info: Abdominal distension TECHNIQUE: Imaging protocol: XR of the abdomen. Views: Frontal supine view of the abdomen. 1 View. COMPARISON: CT ABD/PEL W/IV CONTRAST ONLY 04/08/2019 9:53 PM FINDINGS: Tubes, catheters and devices: EKG leads present overlying the abdomen. Diaphragm: The left hemidiaphragm is moderately elevated. Gastrointestinal tract: There is mildly increased stool noted in the ascending and proximal transverse colon, splenic flexure, and proximal sigmoid colon. Vasculature: The iliac arteries show moderate bilateral atherosclerotic calcifications without evidence of aneurysm. Right pelvic phlebolith. Bones/joints: No acute abnormality identified. IMPRESSION: Mild colonic constipation. Electronically signed by: Rubén Haywood On 11/09/2019 14:18:01 PM
[2019-11-09 16:00] VITALS: BP 103/52
[2019-11-09 20:00] VITALS: BP 104/53
[2019-11-09] MEDS: ATORVASTATIN 20 MG TAB PO SCH (21:20)
[2019-11-09] MEDS: OLANZapine 5 MG TAB PO SCH (21:21)
[2019-11-10] VITALS: BP 102/56
[2019-11-10 04:00] VITALS: BP 100/55
[2019-11-10 06:13] LABS: EOS # 0.1 10^3/uL (0.0-0.5); EOS % 0.7 % (0.0-3.0); HEMATOCRIT 34.5 % (42.0-52.0); HEMOGLOBIN 10.1 g/dl (13.5-17.5); LYMPH # 0.8 10^3/uL (1.5-5.0); LYMPH % 9.3 % (24.0-44.0); MEAN CORPUSCULAR HEMOGLOBIN 30.2 pg (27.0-33.0); MEAN CORPUSCULAR HGB CONC 29.3 g/dl (32.0-36.5); MEAN CORPUSCULAR VOLUME 103.3 fl (80.0-96.0); MONO # 0.6 10^3/uL (0.0-0.8); MONO % 6.1 % (0.0-5.0); NEUTROPHILS # 7.5 10^3/uL (1.5-8.5); NEUTROPHILS % 83.1 % (36.0-66.0); PLATELET COUNT, AUTOMATED 142 10^3/uL (150-450); RED BLOOD COUNT 3.34 10^6/uL (4.30-6.10)
[2019-11-10] MEDS: SLF 3 ML SYR IV SCH ×3 (06:22→22:00)
[2019-11-10 07:04] LABS: BLOOD UREA NITROGEN 41 MG/DL (7-18); CALCIUM LEVEL 8.5 MG/DL (8.8-10.2); CARBON DIOXIDE LEVEL 53 MEQ/L (21-32); CHLORIDE LEVEL 88 MEQ/L (98-107); CREATININE FOR GFR 0.96 MG/DL (0.70-1.30); GLOMERULAR FILTRATION RATE > 60.0 (>42); GLUCOSE, FASTING 78 MG/DL (70-100); MAGNESIUM LEVEL 2.2 MG/DL (1.8-2.4); SODIUM LEVEL 138 MEQ/L (136-145)
[2019-11-10] MEDS: TIOTROPIUM INHALER/CAPSULE (SPIRIVA) INH SCH (07:32)
[2019-11-10] MEDS: LEVALBUTEROL 1.25 MG/0.5 ML CONCENTRATE NEB INH SCH ×4 (07:32→18:00)
[2019-11-10] MEDS: DIGOXIN 0.125 MG TAB PO SCH (08:19)
[2019-11-10] MEDS: AMIODARONE 200 MG TAB (PACERONE) PO SCH ×2 (08:19→21:26)
[2019-11-10] MEDS: predniSONE 10 MG TAB PO SCH (08:19)
[2019-11-10] MEDS: POTASSIUM CHLORIDE 10 MEQ SR TABLET PO SCH (08:20)
[2019-11-10] MEDS: FERROUS SULFATE 325MG TAB PO SCH (08:20)
[2019-11-10] MEDS: SUCRALFATE 1 GM TAB PO SCH ×4 (08:20→21:29)
[2019-11-10] MEDS: MAGNESIUM OXIDE 400 MG TAB (MAG-OX) PO SCH (08:20)
[2019-11-10] MEDS: FOLIC ACID 1 MG TAB PO SCH (08:20)
[2019-11-10] MEDS: MULTIVITAMINS/MINERALS THERAP 1 TAB PO SCH (08:21)
[2019-11-10] MEDS: SERTRALINE HCL 50 MG TAB PO SCH (08:21)
[2019-11-10] MEDS: atenoloL 50 MG TAB PO SCH ×2 (08:21→21:27)
[2019-11-10] MEDS: PANTOPRAZOLE 40MG TAB (PROTONIX) PO SCH (08:21)
[2019-11-10] MEDS: TAMSULOSIN 0.4 MG CAP PO SCH (08:21)
[2019-11-10 12:00] VITALS: BP 97/54
[2019-11-10 16:00] VITALS: BP 114/68
[2019-11-10 20:00] VITALS: BP 100/56
[2019-11-10] MEDS: OLANZapine 5 MG TAB PO SCH (21:26)
[2019-11-10] MEDS: ATORVASTATIN 20 MG TAB PO SCH (21:27)
[2019-11-10] MEDS: guaiFENesin ER 600 MG TAB PO SCH (21:27)
[2019-11-11 04:00] VITALS: BP 119/61
[2019-11-11 05:40] LABS: BASO % 0.1 % (0.0-1.0); EOS % 0.4 % (0.0-3.0); HEMATOCRIT 33.8 % (42.0-52.0); HEMOGLOBIN 9.4 g/dl (13.5-17.5); LYMPH # 0.8 10^3/uL (1.5-5.0); LYMPH % 10.8 % (24.0-44.0); MEAN CORPUSCULAR HEMOGLOBIN 29.3 pg (27.0-33.0); MEAN CORPUSCULAR HGB CONC 27.8 g/dl (32.0-36.5); MEAN CORPUSCULAR VOLUME 105.3 fl (80.0-96.0); MONO # 0.5 10^3/uL (0.0-0.8); MONO % 7.3 % (0.0-5.0); NEUTROPHILS # 5.8 10^3/uL (1.5-8.5); PLATELET COUNT, AUTOMATED 140 10^3/uL (150-450); RED BLOOD COUNT 3.21 10^6/uL (4.30-6.10); WHITE BLOOD COUNT 7.4 10^3/uL (4.0-10.0)
[2019-11-11] MEDS: SLF 3 ML SYR IV SCH ×3 (05:45→20:08)
[2019-11-11 06:49] LABS: BLOOD UREA NITROGEN 43 MG/DL (7-18); CALCIUM LEVEL 8.4 MG/DL (8.8-10.2); CARBON DIOXIDE LEVEL 49 MEQ/L (21-32); CHLORIDE LEVEL 94 MEQ/L (98-107); CREATININE FOR GFR 0.92 MG/DL (0.70-1.30); GLOMERULAR FILTRATION RATE > 60.0 (>42); GLUCOSE, FASTING 81 MG/DL (70-100); MAGNESIUM LEVEL 2.2 MG/DL (1.8-2.4); POTASSIUM SERUM 4.1 MEQ/L (3.5-5.1); SODIUM LEVEL 141 MEQ/L (136-145)
[2019-11-11] MEDS: TIOTROPIUM INHALER/CAPSULE (SPIRIVA) INH SCH (07:16)
[2019-11-11] MEDS: LEVALBUTEROL 1.25 MG/0.5 ML CONCENTRATE NEB INH SCH ×4 (07:16→19:42)
[2019-11-11] MEDS: SUCRALFATE 1 GM TAB PO SCH ×4 (07:30→20:06)
[2019-11-11 08:00] VITALS: BP 107/59
[2019-11-11] MEDS: atenoloL 50 MG TAB PO SCH ×2 (09:00→20:07)
[2019-11-11] MEDS: FERROUS SULFATE 325MG TAB PO SCH (10:30)
[2019-11-11] MEDS: TAMSULOSIN 0.4 MG CAP PO SCH (10:31)
[2019-11-11] MEDS: AMIODARONE 200 MG TAB (PACERONE) PO SCH ×2 (10:31→20:06)
[2019-11-11] MEDS: MAGNESIUM OXIDE 400 MG TAB (MAG-OX) PO SCH (10:31)
[2019-11-11] MEDS: SERTRALINE HCL 50 MG TAB PO SCH (10:31)
[2019-11-11] MEDS: predniSONE 20 MG TAB PO SCH (10:31)
[2019-11-11] MEDS: MULTIVITAMINS/MINERALS THERAP 1 TAB PO SCH (10:32)
[2019-11-11] MEDS: FUROSEMIDE 20 MG TAB PO SCH (10:32)
[2019-11-11] MEDS: FOLIC ACID 1 MG TAB PO SCH (10:32)
[2019-11-11] MEDS: guaiFENesin ER 600 MG TAB PO SCH ×2 (10:32→20:06)
[2019-11-11] MEDS: PANTOPRAZOLE 40MG TAB (PROTONIX) PO SCH (10:32)
[2019-11-11] MEDS: POTASSIUM CHLORIDE 10 MEQ SR TABLET PO SCH (10:35)
[2019-11-11] MEDS: DIGOXIN 0.125 MG TAB PO SCH (11:07)
[2019-11-11 12:00] VITALS: BP 107/57
[2019-11-11 16:00] VITALS: BP 109/66
[2019-11-11] MEDS: ATORVASTATIN 20 MG TAB PO SCH (20:06)
[2019-11-11] MEDS: OLANZapine 5 MG TAB PO SCH (20:07)
[2019-11-12] VITALS: BP 106/55
[2019-11-12 06:15] LABS: HEMATOCRIT 36.4 % (42.0-52.0); HEMOGLOBIN 10.6 g/dl (13.5-17.5); MEAN CORPUSCULAR HEMOGLOBIN 29.9 pg (27.0-33.0); MEAN CORPUSCULAR HGB CONC 29.1 g/dl (32.0-36.5); MEAN CORPUSCULAR VOLUME 102.8 fl (80.0-96.0); PLATELET COUNT, AUTOMATED 171 10^3/uL (150-450); RED BLOOD COUNT 3.54 10^6/uL (4.30-6.10); WHITE BLOOD COUNT 8.5 10^3/uL (4.0-10.0)
[2019-11-12] MEDS: SLF 3 ML SYR IV SCH ×3 (06:34→21:19)
[2019-11-12 06:45] LABS: BLOOD UREA NITROGEN 39 MG/DL (7-18); CALCIUM LEVEL 8.7 MG/DL (8.8-10.2); CARBON DIOXIDE LEVEL 50 MEQ/L (21-32); CHLORIDE LEVEL 94 MEQ/L (98-107); GLOMERULAR FILTRATION RATE > 60.0 (>42); GLUCOSE, FASTING 75 MG/DL (70-100); MAGNESIUM LEVEL 2.1 MG/DL (1.8-2.4); POTASSIUM SERUM 4.3 MEQ/L (3.5-5.1); SODIUM LEVEL 142 MEQ/L (136-145)
[2019-11-12] MEDS: SUCRALFATE 1 GM TAB PO SCH ×4 (07:36→21:17)
[2019-11-12] MEDS: TIOTROPIUM INHALER/CAPSULE (SPIRIVA) INH SCH (07:47)
[2019-11-12] MEDS: LEVALBUTEROL 1.25 MG/0.5 ML CONCENTRATE NEB INH SCH ×4 (07:47→19:32)
[2019-11-12 07:53] LABS: ANISOCYTOSIS 1+; EOSINOPHILS 1 % (0-3); LYMPHOCYTES 11 % (16-44); METAMYELOCYTES 3 % (0-0); MONOCYTES 7 % (0-5); NEUTROPHILS 78 % (28-66); PLATELET ESTIMATE NORMAL (NORMAL)
[2019-11-12 08:00] VITALS: BP 110/63
[2019-11-12 08:33] LABS: DIGOXIN LEVEL 1.9 NG/ML (0.5-2.0)
[2019-11-12] MEDS: SERTRALINE HCL 50 MG TAB PO SCH (10:16)
[2019-11-12] MEDS: TAMSULOSIN 0.4 MG CAP PO SCH (10:16)
[2019-11-12] MEDS: MULTIVITAMINS/MINERALS THERAP 1 TAB PO SCH (10:16)
[2019-11-12] MEDS: FERROUS SULFATE 325MG TAB PO SCH (10:16)
[2019-11-12] MEDS: guaiFENesin ER 600 MG TAB PO SCH ×2 (10:16→21:19)
[2019-11-12] MEDS: PANTOPRAZOLE 40MG TAB (PROTONIX) PO SCH (10:17)
[2019-11-12] MEDS: FOLIC ACID 1 MG TAB PO SCH (10:17)
[2019-11-12] MEDS: predniSONE 20 MG TAB PO SCH (10:17)
[2019-11-12] MEDS: POTASSIUM CHLORIDE 10 MEQ SR TABLET PO SCH (10:17)
[2019-11-12] MEDS: atenoloL 50 MG TAB PO SCH ×2 (10:18→21:19)
[2019-11-12] MEDS: MAGNESIUM OXIDE 400 MG TAB (MAG-OX) PO SCH (10:18)
[2019-11-12] MEDS: DIGOXIN 0.125 MG TAB PO SCH (10:19)
[2019-11-12] MEDS: AMIODARONE 200 MG TAB (PACERONE) PO SCH ×2 (10:19→21:19)
[2019-11-12] MEDS: FUROSEMIDE 20 MG TAB PO SCH (10:19)
--- NOTE | 2019-11-12 11:23 | IPNPDOC ---
Subjective Date Seen The patient was seen on 11/12/19. Subjective Chief Complaint/HPI Does not offer any complaint today. No SOB. He is ambulating to bathroom. Objective Physical Examination General Exam: Positive: Alert, Cooperative, No Acute Distress Eye Exam: Positive: PERRLA, Conjunctiva & lids normal, EOMI; Negative: Sclera icteric ENT Exam: Positive: Atraumatic, Mucous membr. moist/pink, Pharynx Normal Neck Exam: Positive: Supple; Negative: JVD, thyromegaly Chest Exam: Positive: Diminished Heart Exam: Positive: Tachycardic, Irregular Rhythm Telemetry: Positive: Atrial fibrillation Abdomen Exam: Positive: Normal bowel sounds, Soft, Hernia (umbilical hernia), Other (distended, ascites present); Negative: Tenderness Extremity Exam: Positive: Edema (bipedal 2+) Assessment /Plan Assessment Patient is a 74 year old male presenting with chief complaint of chest pain. He states he was at home and stood up to get out of bed when he became dizzy, developed sudden onset left sided chest pain, then fell to the floor, losing consciousness (he is unaware for how long or if it was witnessed), he was found by his granddaughter who called EMS. He denies this ever happening previously and states the chest pain is still present but is less than it was prior. In the ED he was hypotensive with EKG demonstrating sinus tachycardia at a rate of 121 with unremarkable work-up but CT angiogram demonstrating left lower lobe segmental and subsegmental pulmonary emboli. He was admitted for Acute PE, Syncope. Acute on chronic respiratory failure,Hypotension. He also developed CHF exacerbation after fluid resuscitation, Afib with RVR, and COPD exacerbation. Umbilical hernia/ abdominal distension abdominal swelling has some ascites however not enough to tap May be gaseous distension with poor abdominal muscle tone Abd Xray no obs , colonic constipation will continue bowel regimen Paroxysmal Atrial fibrillation/ Aflutter with rapid ventricular rate. rate controlled received Amiodarone IV, started on on amiodarone po. also started on atenolol po. loaded with dig IV. Now will continue po dig Dig level ok Acute DVT and Pulmonary embolism Cannot be anticoagulated due to untreatable rectal cancer which bleeds intermittently causing severe blood loss anemia requiring transfusions patient refused IVC filter placement. Acute on chronic resp failure with hypoxia and hypercarbia due to Pulmonary embolism , copd exacerbation continue home oxygen continue home lasix low dose. I expect we will never be able to make be completely edema free as aggressive diuresis raises his bicarb/ pCo2 too much. His baseline bicarb is about 45 to 50 with Pco2 in Abg of 80 to 90 COPD exacerbation/Severe pulmonary hypertension resolved on oral steroids. continue nebs and inhalers Rectal cancer diagnosed in september 2019 Patient had been evaluated by Dr. Herminio Currie, general surgeon, who feels that the patient is not a surgical candidate due to comorbid conditions Cancer is unresectable and bleeds intermittently Patient does not want Hospice H/o Peptic ulcer disease/ duodenal ulcer perforation in Mar 2019 s/p ex laparotomy and abdominal washout though perforation was not seen. continue PPI. Acute on Chronic diastolic congestive heart failure (CHF)/ Severe tricuspid regurgitation/ Severe pulmonary hypertension received IV lasix. Schizophrenia/ Depression. home meds Hyperlipidemia. resolved with weight loss. H/o Hypertension with severe hypertensive heart disease or possibly hypertrophic cardiomyopathy now resolved with severe weight loss. Severe protein calorie malnutrition. due to progressive cancer Possible complex partial seizures. home meds BPH with recurrent urinary retentions Diaz out. voiding Ok Hypothyroid synthroid. Plan/VTE VTE Prophylaxis Ordered?: Yes VS, I&O, 24H, Fishbone Vital Signs/I&O Vital Signs Date Time Temp Pulse Resp B/P (MAP) Pulse Ox O2 Delivery O2 Flow Rate FiO2 11/12/19 10:19 66 11/12/19 10:18 110/63 11/12/19 08:00 97.5 16 94 Nasal Cannula 4.0 I&O- Last 24 Hours up to 6 AM 11/12/19 06:00 Intake Total 840 ml Output Total 0 ml Balance 840 ml Laboratory Data 24H LABS Laboratory Tests 2 11/12/19 05:32: Immature Granulocyte % (Auto) , Neutrophils (%) (Auto) , Nucleated Red Blood C ells % (auto) 0.0, Neutrophils 78H, Lymphocytes (Manual) 11L, Monocytes (Manual) 7H, Eosinophils (Manual) 1, Metamyelocytes 3H, Anisocytosis 1+, Macrocytosis 1+, Platelet Estimate NORMAL, Anion Gap , Glomerular Filtration Rate > 60.0, Calcium Level 8.7L, Magnesium Level 2.1, Digoxin Level 1.9 CBC/BMP Laboratory Tests 11/12/19 05:32 ELIAS MORROW MD Nov 12, 2019 11:22
--- NOTE | 2019-11-12 14:32 | IPN ---
DATE: 11/02/2019 SUBJECTIVE: Patient has completed three days of I.V. Amiodarone drip with improvement, but remains tachycardic. Shortness of breath has improved slightly, but still requires diuresis. Blood pressure is well maintained at 134 systolic. No complaints of chest tightness this morning. No nausea or vomiting. No epigastric pain. PHYSICAL EXAMINATION: VITALS: Temp 97.9, pulse 113, respiratory rate 18, blood pressure 134/84, 93% on 4 liters nasal cannula. GENERAL: Awake, alert and oriented to person and place. Answering questions with slight conversational dyspnea about 5-6 word conversational dyspnea with use of respiratory accessory muscles without tracheal deviation. Mild JVD. No thyromegaly. No cervical lymphadenopathy. Dry mucous membranes. LUNGS: Diminished bilateral crackles at the bases. HEART: S1, S2, irregularly irregular and tachycardic. ABDOMEN: Soft, nontender, non-distended. EXTREMITIES: No pitting edema. LABORATORY DATA: White count 6, hemoglobin 10, hematocrit 34, platelet count 154,000. Sodium 139, potassium 4.3, chloride 99, bicarb 40, BUN 31, creatinine 0.92, glucose 131. IMAGING STUDIES: Chest x-ray from 11/01/2019 revealed cardiomegaly with pulmonary vascular congestion, interstitial edema, atelectasis and left pleural effusion. ASSESSMENT AND PLAN: This is a 74-year-old male with chronic atrial fibrillation, who presented to the Emergency Room with recent diagnosis of rectal cancer, not a surgical candidate, severe pulmonary hypertension, diastolic heart failure, severe tricuspid regurgitation with the following acute issues: 1. Acute CHF exacerbation, diastolic dysfunction, preserved systolic function. 2. Atrial fibrillation with RVR. 3. Status post Amiodarone drip. 4. Bilateral pulmonary embolism. 5. Recently diagnosed with rectal cancer. 6. Acute COPD exacerbation with chronic hypoxic and hypercarbic respiratory failure. PLAN: Patient has adequate blood pressure with systolic pressure of 122 to 134. Therefore, he will be given Atenolol 50 mg b.i.d. Solu-Medrol will be tapered down to 40 I.V. every 12 hours and continue with diuresis with Lasix 20 I.V. every 4 hours times three doses. Continue on Lipitor. Patient had declined IVC Filter placement. He is unable to be anticoagulated due to bleeding rectal CA. No acute need for RBC transfusion. Patient is currently DNR and did not want to have an IVC filter placed despite risk of respiratory failure due to more blood clot and hypercoagulable state from known history of rectal cancer. Patient has severe pulmonary hypertension due to tricuspid regurg, which is also nonsurgical. Patient is not ready for comfort measures in hospice. Will optimize patients atrial fibrillation for better rate control and physical condition with ARU screen, PT and OT. 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 KERON
--- NOTE | 2019-11-12 14:35 | IPN ---
DATE: 11/03/2019 Patient's breathing has improved. He remains with atrial fibrillation with rapid ventricular response (RVR). Atenolol given this morning, 100 mg. Blood pressure is 120/84. Despite digoxin, atenolol, and amiodarone, patient continues to have atrial fibrillation with RVR. Patient otherwise denies any chest pain or pressure. He does complain that the shortness of breath is still persistent but improved. He continues to refuse inferior vena cava (IVC) filter placement due to contraindication to anticoagulate in light of rectal bleed and rectal cancer. PHYSICAL EXAMINATION: Temperature 98.4, pulse 116-119, respiratory rate 18, blood pressure 116/83, 91% on 4 liters nasal cannula. GENERAL: Patient appears his stated age. Mild respiratory distress. Use of respiratory accessory muscles. Mild jugular venous distention (JVD). No thyromegaly. No cervical lymphadenopathy. LUNGS: Diminished. Bilateral crackles. HEART: S1, S2, irregularly irregular and tachycardic. ABDOMEN: Soft, nontender, nondistended. EXTREMITIES: No pitting edema. LABORATORY DATA: White count 9.1, hemoglobin 11, hematocrit 40, platelet count 157. Sodium 140, potassium 4.8, chloride 96, bicarbonate 39, BUN 33, creatinine 0.91, glucose 103. ASSESSMENT AND PLAN: This is a 74-year-old male with recent diagnosis of rectal cancer with bright red blood per rectum, melena, and black, tarry stools at home with normal hemoglobin on presentation, found to have atrial fibrillation with rapid ventricular response (RVR) and bilateral pulmonary emboli (PE) with complaint of shortness of breath and dyspnea on exertion. CURRENT ISSUES: 1. Atrial fibrillation with RVR. Patient had been put on amiodarone drip without any improvement and no chemical cardioversion back to sinus. He remains tachycardic. Now on atenolol 100 twice a day. Changed to metoprolol 50 every 6 hours for better control. Patient cannot be anticoagulated due to rectal bleed and rectal cancer that is unresectable, since the patient is not a surgical candidate due to comorbid conditions. 2, Bilateral PE, on supplemental oxygen. Patient has refused IVC filter placement despite risk of respiratory failure. He remains DO NOT RESUSCITATE, DO NOT INTUBATE. Did not want to proceed with any other intervention. Anticoagulation is contraindicated due to rectal bleeding at home found on diapers from rectal cancer that remains untreated. 3. Rectal cancer, currently not a surgical candidate according to the patient, who had consulted with Dr. Currie as outpatient. He is extremely high risk with severe pulmonary hypertension, severe tricuspid regurgitation, congestive heart failure, atrial fibrillation with RVR currently, and bilateral PE and acute hypoxic respiratory failure. 4. Acute hypoxic respiratory failure secondary to atrial fibrillation with RVR, bilateral PE, and chronic obstructive pulmonary disease (COPD) exacerbation. 4. COPD exacerbation. Improved air entry. Currently on tapering dose of steroids, on nebulizer treatment with Xopenex due to significant tachycardia. DISPOSITION Patient refused [place] transfer for IVC filter placement. He cannot be anticoagulated for atrial fibrillation and PE due to rectal cancer and rectal bleeding. Patient's hemoglobin and hematocrit remain stable. He remains with guarded prognosis and high risk for surgery. Option that the patient has wanted was to continue with rate control with the atrial fibrillation, optimize discharge home, and he will revisit a second opinion with colorectal surgery in [place] and potentially change his mind about IVC placement. At this time he refuses IVC filter placement a transfer to [place] despite risk of worsening bilateral PE, respiratory failure, respiratory arrest, and . [facility]
--- NOTE | 2019-11-12 14:38 | IPN ---
DATE: 11/04/2019 Patient seen and examined at the bedside. Chart has been reviewed. Patient's atrial fibrillation is slowly improving, 66-118. No complaints of palpitations, lightheadedness, or dizziness. Still with generalized weakness. Still requiring supplemental oxygen. Systolic pressure is now maintained in 120s. Temperature 97.8, pulse 66-118, respiratory rate 18, blood pressure 128/72, 100% on 4 liters nasal cannula. GENERAL: Patient is awake, alert, oriented, answering questions appropriately. Face is symmetric. Tongue midline. No jugular venous distention (JVD) or thyromegaly. LUNGS: Diminished. Crackles bilaterally. Faint wheezing. HEART: S1, S2, irregularly irregular, tachycardic. ABDOMEN: Soft, nontender, nondistended. EXTREMITIES: Trace edema bilaterally. LABORATORY DATA: White count 9.5, hemoglobin 10, hematocrit 38, platelet count 146. Admission platelet count of 220. Digoxin 0.5. Creatinine 0.8. Troponin less than 0.02. ASSESSMENT AND PLAN: This is a 74-year-old male with moderate pulmonary hypertension, moderate to severe tricuspid regurgitation, diastolic heart failure, PA pressure of 50-60 mm of mercury, descending thoracic aortic aneurysm, 3 x 3.9 cm. Recent diagnosis of rectal cancer (CA) and gastrointestinal (GI) bleed with duodenal ulcer perforation in March, requiring abdominal washout, chronic hypoxic hypercarbic respiratory failure, end-stage chronic obstructive pulmonary disease (COPD), requiring supplemental oxygen, schizophrenia, dyslipidemia, hypertensive heart disease, paroxysmal atrial fibrillation, not on anticoagulation due to recent duodenal perforation and rectal cancer with active GI bleed. Acute peritonitis. Escherichia (E) coli, Citrobacter in March. Right lower lobe irregular pulmonary nodule, which is new since previous PET scan. He then presented with shortness of breath, found to have atrial fibrillation with rapid ventricular response (RVR) and pulmonary embolism bilaterally. Due to high risk of bleeding with rectal CA, patient could not be anticoagulated. He is also not a surgical candidate due to severe comorbidities per his surgeon, Dr. Currie. IMPRESSION: 1. Atrial fibrillation with RVR. 2. Bilateral pulmonary embolism 3. Acute on chronic hypoxic respiratory failure. 4. Acute COPD exacerbation. 5. Recent diagnosis of rectal cancer with rectal bleed, not requiring red blood cell (RBC) transfusion. PLAN: Patient is continued on atenolol and digoxin for rate control. He could not be anticoagulated for his pulmonary embolism (PE) and atrial fibrillation to prevent CVA due to rectal bleed from rectal cancer that is not being treated at this time due to patient's comorbid conditions. According to Dr. Currie, his surgeon, patient is not a surgical candidate, but he does not want to be hospice or comfort measures at this time. He is refusing inferior vena cava (IVC) filter placement despite risk of increasing bilateral pulmonary embolism, respiratory arrest, and . Patient wants the heart rate to be controlled. He wants to go home and re-examine options for treatment. Once he is medically optimized, he wants to have a second opinion in [place] with colorectal surgeon and decide then if he wants surgery or hospice care. At this time he is requiring significant assistance with activities of daily living (ADLs) and cannot be released yet. Continue with present management. Taper down the steroids to oral prednisone. MTDD
--- NOTE | 2019-11-12 14:40 | IPN ---
DATE: 11/05/2019 Patient said his breathing is slightly improved from yesterday. No complaints of cough productive of white sputum. Without fever or chills. Still requiring four liters nasal cannula oxygen. No other issues per nursing overnight. Vital signs: Temperature 98.1, pulse 122-126, respiratory rate 20, blood pressure 124/80, 95% on four liters nasal cannula. Generally: Awake, alert, oriented times three, positive pursed lips and use of respiratory accessory muscles. Positive jugular venous distension (JVD). Moist mucous membranes. Lungs: Diminished, bilateral rales. Heart: S1, S2, irregularly irregular, tachycardic. Abdomen: Soft, nontender, nondistended. Extremities: No pitting edema. LABORATORY DATA: Pending. Digoxin level pending. Chest x-ray 11/04/2019: Congestive heart failure. ASSESSMENT AND PLAN: This is a 74-year-old male with recent diagnosis of rectal cancer with red blood at home, refused inferior vena cava (IVC) filter placement due to a new finding of atrial fibrillation with rapid ventricular response (RVR) and bilateral pulmonary embolism, could not be anticoagulated, he has opted for rate control and to see whether he would improve enough to reconsider IVC filter placement and chemotherapy and resection of the rectal cancer. CURRENT ISSUES: Are as follows: 1. Acute congestive heart failure (CHF), preserved ejection fraction. 2. Moderate to severe tricuspid regurgitation with moderate pulmonary hypertension. 3. Acute on chronic hypoxic respiratory failure secondary to congestive heart failure (CHF), pulmonary embolism, and atrial fibrillation with rapid ventricular response (RVR). 4. Atrial fibrillation with rapid ventricular response (RVR). 5. Descending thoracic aortic aneurysm. 6. Rectal cancer and gastrointestinal (GI) bleed. Not a surgical candidate. Not receiving active chemotherapy due to poor functional status. 7. Duodenal ulcer with perforation in March requiring abdominal washout. 8. Chronic hypercarbic respiratory failure. 9. End-stage chronic obstructive pulmonary disease (COPD). 10. Schizophrenia. 11. Dyslipidemia. PLAN: Patient has poor functional capacity and not a surgical candidate for his rectal cancer nor is he a candidate for chemotherapy at this time. He is being optimized with his atrial fibrillation with rapid ventricular response (RVR) which was complicated by low blood pressure, did not respond well to metoprolol with ongoing issues with ongoing rapid rate despite IV amiodarone. Patient is currently on by mouth amiodarone, Lasix every 4 hours for diuresis for new congestive heart failure, 1.5 liter fluid restriction, monitor intake and output, daily weights, and continue with full supportive care. Patient understands that he cannot be anticoagulated due to rectal cancer and history of rectal bleeding at home. He currently does not require red blood cell (RBC) transfusion. Despite risk of respiratory arrest and , patient does not want an inferior vena cava (IVC) filter placement. He cannot be anticoagulated for atrial fibrillation due to rectal cancer and gastrointestinal (GI) bleed with increased risk of bleeding if started on anticoagulant. He understands he is at risk of stroke. Family understands and daughter, who is the healthcare proxy, had requested comfort measures only and hospice. Patient, however, wants continued treatment for now and will reevaluate later if he changes his mind for inferior vena cava (IVC) filter placement. He is currently being optimized. [facility]
--- NOTE | 2019-11-12 14:42 | IPN ---
DATE: 11/06/2019 SUBJECTIVE: Patient was emergently transferred to PCU yesterday due to A-fib with RVR, rate of 120 to 130. Patient was started on an IV amiodarone drip with some improvement, down to about 67 to 120 and kept on metoprolol 50 mg q. 6 hourly with blood pressure ranging from 102 to 109. Patient remains on IV Lasix for diuresis. Breathing is much improved today. No complaints of chest pain, pressure, tightness or lightheadedness. No hemoptysis. No neurological dysfunction. No facial asymmetry. No expressive aphasia. No word finding difficulties. No upper or lower extremity paresthesias or weakness. PHYSICAL EXAMINATION: VITAL SIGNS: Atrial fibrillation on telemetry, ventricular rate of 67 to 117 at the bedside. Blood pressure 109/58, 18 respiratory rate, 95% on 4 liters nasal cannula. GENERAL: Awake, alert and oriented, answering questions appropriately. Patient has no conversational dyspnea. Able to speak in full sentences. NECK: No JVD. No thyromegaly. No cervical lymphadenopathy. LUNGS: Diminished, crackles at the bilateral bases. Faint wheezes. HEART: S1 and S2, irregularly irregular and tachycardic. ABDOMEN: Soft, nontender, nondistended. EXTREMITIES: No pitting edema. Input and output: Input of 1216, output 900, negative 1556 today, current weight is 55.7 kg. LABORATORY DATA: White count 10, hemoglobin 12, hematocrit 40, platelet count 136,000, yesterdays platelet count 163,000, sodium 138, potassium 3.3, chloride 79, bicarbonate 58, BUN 32, creatinine 0.96, glucose of 75. ASSESSMENT AND PLAN: This is a 74-year-old male with a recent diagnosis of rectal CA with bloody stools and black stools at home without any significant anemia, presented with shortness of breath, found to have A-fib with RVR and bilateral PE. Admitted for rate control. Hypotensive and required amiodarone IV drip, metoprolol as well as Digoxin. Patient required emergent transfer to PCU yesterday for rate control. IMPRESSION: 1. A-fib with RVR. 2. Bilateral PE. 3. Rectal CA. 4. CHF. Acute diastolic dysfunction, preserved systolic function. 5. Cancer and pulmonary cachexia. 6. Acute COPD exacerbation. PLAN: Patient is currently on an amiodarone drip. He has pulmonary hypertension, poor overall prognosis, declined IVC filter placement in [place] and despite the risk of CVA the patient does not want to be comfort measures at this time. He is continued on tapered dose of prednisone, amiodarone and metoprolol for rate control and possible chemical cardioversion. He is not anticoagulated due to rectal cancer and rectal bleeding with bright-red blood at home. He is continued on Lasix 20 IV q. 4 hourly diuresis with improvement. Poor overall prognosis, do not resuscitate, do not intubate. MTDD
[2019-11-12 16:00] VITALS: BP 118/59
[2019-11-12 21:00] VITALS: BP 124/59
[2019-11-12] MEDS: OLANZapine 5 MG TAB PO SCH (21:17)
[2019-11-12] MEDS: ATORVASTATIN 20 MG TAB PO SCH (21:19)
[2019-11-13 04:00] VITALS: BP 128/60
[2019-11-13 05:35] LABS: BASO % 0.2 % (0.0-1.0); EOS % 0.5 % (0.0-3.0); HEMATOCRIT 32.1 % (42.0-52.0); HEMOGLOBIN 9.5 g/dl (13.5-17.5); LYMPH # 0.8 10^3/uL (1.5-5.0); LYMPH % 11.6 % (24.0-44.0); MEAN CORPUSCULAR HEMOGLOBIN 29.8 pg (27.0-33.0); MEAN CORPUSCULAR HGB CONC 29.6 g/dl (32.0-36.5); MEAN CORPUSCULAR VOLUME 100.6 fl (80.0-96.0); MONO # 0.4 10^3/uL (0.0-0.8); MONO % 6.6 % (0.0-5.0); NEUTROPHILS # 5.3 10^3/uL (1.5-8.5); NEUTROPHILS % 80.3 % (36.0-66.0); PLATELET COUNT, AUTOMATED 166 10^3/uL (150-450); RED BLOOD COUNT 3.19 10^6/uL (4.30-6.10); WHITE BLOOD COUNT 6.5 10^3/uL (4.0-10.0)
[2019-11-13 06:07] LABS: BLOOD UREA NITROGEN 36 MG/DL (7-18); CALCIUM LEVEL 8.4 MG/DL (8.8-10.2); CARBON DIOXIDE LEVEL 44 MEQ/L (21-32); CHLORIDE LEVEL 98 MEQ/L (98-107); CREATININE FOR GFR 0.93 MG/DL (0.70-1.30); GLOMERULAR FILTRATION RATE > 60.0 (>42); GLUCOSE, FASTING 73 MG/DL (70-100); MAGNESIUM LEVEL 2.2 MG/DL (1.8-2.4); POTASSIUM SERUM 4.5 MEQ/L (3.5-5.1); SODIUM LEVEL 142 MEQ/L (136-145)
[2019-11-13] MEDS: SLF 3 ML SYR IV SCH (06:36)
[2019-11-13] MEDS: LEVALBUTEROL 1.25 MG/0.5 ML CONCENTRATE NEB INH SCH ×2 (07:06→11:13)
[2019-11-13] MEDS: TIOTROPIUM INHALER/CAPSULE (SPIRIVA) INH SCH (07:06)
[2019-11-13 08:00] VITALS: BP 116/58
[2019-11-13 09:00] VITALS: BP 116/58
[2019-11-13] MEDS: atenoloL 50 MG TAB PO SCH (09:00)
[2019-11-13] MEDS: predniSONE 20 MG TAB PO SCH (09:04)
[2019-11-13] MEDS: MULTIVITAMINS/MINERALS THERAP 1 TAB PO SCH (09:04)
[2019-11-13] MEDS: SERTRALINE HCL 50 MG TAB PO SCH (09:04)
[2019-11-13] MEDS: MAGNESIUM OXIDE 400 MG TAB (MAG-OX) PO SCH (09:04)
[2019-11-13] MEDS: SUCRALFATE 1 GM TAB PO SCH ×2 (09:04→11:50)
[2019-11-13] MEDS: PANTOPRAZOLE 40MG TAB (PROTONIX) PO SCH (09:04)
[2019-11-13] MEDS: guaiFENesin ER 600 MG TAB PO SCH (09:05)
[2019-11-13] MEDS: FERROUS SULFATE 325MG TAB PO SCH (09:05)
[2019-11-13] MEDS: FOLIC ACID 1 MG TAB PO SCH (09:05)
[2019-11-13] MEDS: TAMSULOSIN 0.4 MG CAP PO SCH (09:05)
[2019-11-13] MEDS: FUROSEMIDE 20 MG TAB PO SCH (09:09)
[2019-11-13] MEDS: POTASSIUM CHLORIDE 10 MEQ SR TABLET PO SCH (09:54)
[2019-11-13] MEDS: DIGOXIN 0.125 MG TAB PO SCH (09:54)
[2019-11-13] MEDS: AMIODARONE 200 MG TAB (PACERONE) PO SCH (09:54)
[2019-11-13] MEDS ORDERED: MUCI600T31 PO (10:12)
[2019-11-13] MEDS ORDERED: ATEN50TA2 PO (10:12)
[2019-11-13] MEDS ORDERED: ATOR1TAB21 PO (10:12)
[2019-11-13] MEDS ORDERED: KLOR10TA76 PO (10:12)
[2019-11-13] MEDS ORDERED: AMIO200T3 PO (10:12)
[2019-11-13] MEDS ORDERED: PRED10TA2 PO (10:12)
[2019-11-13] MEDS ORDERED: DIGO0.123 PO (10:12)
[2019-11-13] MEDS ORDERED: ALBU83IN INH (10:12)
--- NOTE | 2019-11-13 13:23 | DS.PDOC ---
Discharge Summary General Date of Admission Oct 31, 2019 at 03:38 Date of Discharge 11/13/19 Discharge Summary PROCEDURES PERFORMED DURING STAY: [None]. DISCHARGE DIAGNOSES: Acute DVT refused IVC filter Acute Pulmonary embolism Paroxysmal Afib/A flutter with RVR Acute on chronic respiratory failure with hypoxia and hypercarbia Acute on Chronic Diastolic Heart failure Severe pulmonary embolism with chronic right heart failure COPD exacerbation Umbilical Hernia Rectal Cancer diagnosed in September 2019 untreatable Intermittent GIB Severe protein Calorie malnutrition Peptic ulcer disease/ duodenal ulcer perforation in Mar 2019 s/p ex laparotomy and abdominal washout though perforation was not seen. Schizophrenia/ Depression. HLD Possible complex partial seizures. BPH with recurrent urinary retentions Hypothyroid H/o Hypertension with severe hypertensive heart disease or possibly hypertrophic cardiomyopathy COMPLICATIONS/CHIEF COMPLAINT: Afib With Rvr, Pulmonary Embolism. HOSPITAL COURSE: Patient is a 74 year old male presenting with chief complaint of chest pain. He states he was at home and stood up to get out of bed when he became dizzy, developed sudden onset left sided chest pain, then fell to the floor, losing consciousness (he is unaware for how long or if it was witnessed), he was found by his granddaughter who called EMS. He denies this ever happening previously and states the chest pain is still present but is less than it was prior. In the ED he was hypotensive with EKG demonstrating sinus tachycardia at a rate of 121 with unremarkable work-up but CT angiogram demonstrating left lower lobe segmental and subsegmental pulmonary emboli. He was admitted for Acute PE, Syncope. Acute on chronic respiratory failure,Hypotension. He also developed CHF exacerbation after fluid resuscitation, Afib with RVR, and COPD exacerbation. Umbilical hernia/ abdominal distension abdominal swelling has some ascites however not enough to tap May be gaseous distension with poor abdominal muscle tone Abd Xray no obs , colonic constipation will continue bowel regimen Paroxysmal Atrial fibrillation/ Aflutter with rapid ventricular rate. rate controlled received Amiodarone IV, followed by amiodarone po. on atenolol po. Started on digoxin Dig level ok Acute DVT and Pulmonary embolism Cannot be anticoagulated due to untreatable rectal cancer which bleeds intermittently causing severe blood loss anemia requiring transfusions patient refused IVC filter placement. Acute on chronic resp failure with hypoxia and hypercarbia due to Pulmonary embolism , copd exacerbation continue home oxygen continue home lasix low dose. I expect we will never be able to make be completely edema free as aggressive diuresis raises his bicarb/ pCo2 too much. His baseline bicarb is about 45 to 50 with Pco2 in [place] of 80 to 90 COPD exacerbation/Severe pulmonary hypertension resolved on oral steroid taper continue nebs and inhalers Rectal cancer diagnosed in september 2019 Patient had been evaluated by Dr. Herminio Currie, general surgeon, who feels that the patient is not a surgical candidate due to comorbid conditions Cancer is unresectable and bleeds intermittently Patient does not want Hospice H/o Peptic ulcer disease/ duodenal ulcer perforation in Mar 2019 s/p ex laparotomy and abdominal washout though perforation was not seen. continue PPI. Acute on Chronic diastolic congestive heart failure (CHF)/ Severe tricuspid regurgitation/ Severe pulmonary hypertension received IV lasix. will continue Po Lasix Schizophrenia/ Depression. home meds Hyperlipidemia. resolved with weight loss. H/o Hypertension with severe hypertensive heart disease or possibly hypertrophic cardiomyopathy now resolved with severe weight loss. Severe protein calorie malnutrition. due to progressive cancer Possible complex partial seizures. home meds BPH with recurrent urinary retentions Diaz out. voiding Ok Hypothyroid synthroid. DISCHARGE MEDICATIONS: Please see below. ALLERGIES: Please see below. PHYSICAL EXAMINATION ON DISCHARGE: VITAL SIGNS: Please see below. General Exam: Positive: Alert, Cooperative, No Acute Distress Eye Exam: Positive: PERRLA, Conjunctiva & lids normal, EOMI; Negative: Sclera icteric ENT Exam: Positive: Atraumatic, Mucous membr. moist/pink, Pharynx Normal Neck Exam: Positive: Supple; Negative: JVD, thyromegaly Chest Exam: Positive: Diminished Heart Exam: Positive: Tachycardic, Irregular Rhythm Telemetry: Positive: Atrial fibrillation Abdomen Exam: Positive: Normal bowel sounds, Soft, Hernia (umbilical hernia), Other protuberant Negative: Tenderness Extremity Exam: Positive: Edema 1+ LABORATORY DATA: Please see below. ACTIVITY: [As tolerated]. DIET: As tolerated DISCHARGE PLAN: Home with services DISCHARGE INSTRUCTIONS: PMD in 1 week DISCHARGE CONDITION: [Stable]. TIME SPENT ON DISCHARGE: 35 minutes. Vital Signs/I&Os Vital Signs Date Time Temp Pulse Resp B/P (MAP) Pulse Ox O2 Delivery O2 Flow Rate FiO2 11/13/19 09:54 57 11/13/19 09:00 116/58 11/13/19 08:00 97.7 16 92 Nasal Cannula 4.0 I&O- Last 24 Hours up to 6 AM 11/13/19 06:00 Intake Total 970 ml Output Total 0 ml Balance 970 ml Laboratory Data Labs 24H Laboratory Tests 2 11/13/19 05:23: Immature Granulocyte % (Auto) 0.8, Neutrophils (%) (Auto) 80.3H, Lymphocytes (%) (Auto) 11.6L, Monocytes (%) (Auto) 6.6H, Eosinophils (%) (Auto) 0.5, Basophils (%) (Auto) 0.2, Neutrophils # (Auto) 5.3, Lymphocytes # (Auto) 0.8L, Monocytes # (Auto) 0.4, Eosinophils # (Auto) 0.0, Basophils # (Auto) 0.0, Nucleated Red Blood Cells % (auto) 0.0, Anion Gap 0L, Glomerular Filtration Rate > 60.0, Calcium Level 8.4L, Magnesium Level 2.2 CBC/BMP Laboratory Tests 11/13/19 05:23 Discharge Medications Scheduled Albuterol Sulf (Albuterol Sulfate) 2.5 Mg/3 Ml Vial.neb, 2.5 MG INH Q6H Atenolol (Atenolol) 50 Mg Tablet, 25 MG PO BID Atorvastatin Calcium (Atorvastatin Calcium) 20 Mg Tablet, 10 MG PO QHS Digoxin (Digoxin) 125 Mcg Tablet, 0.125 MG PO DAILY Ferrous Sulfate (Ferrous Sulfate) 325 Mg Tablet.dr, 325 MG PO DAILY, (Reported) Folic Acid (Folic Acid) 1 Mg Tablet, 1 MG PO DAILY, (Reported) Furosemide (Furosemide) 20 Mg Tablet, 20 MG PO DAILY, (Reported) Guaifenesin (Mucinex) 600 Mg Tab.er.12h, 600 MG PO BID Magnesium Oxide (Magnesium Oxide) 400 Mg Tablet, 400 MG PO DAILY, (Reported) Multivitamins (Thera M Plus Tablet) 1 Each Tablet, 1 TAB PO DAILY, (Reported) Olanzapine (Olanzapine) 15 Mg Tablet, 15 MG PO QHS, (Reported) Pantoprazole Sodium (Pantoprazole Sodium) 40 Mg Tablet.dr, 40 MG PO DAILY, (Reported) Potassium Chloride (Klor-Con M10) 10 Meq Tab.er.prt, 10 MEQ PO DAILY Prednisone (Prednisone) 10 Mg Tablet, 10 MG PO DAILY Sertraline Hcl (Sertraline HCl) 50 Mg Tablet, 50 MG PO DAILY, (Reported) Sucralfate (Sucralfate) 1 Gm Tablet, 1 GM PO ACHS, (Reported) Tamsulosin HCl (Flomax) 0.4 Mg Capsule, 0.4 MG PO DAILY, (Reported) Tiotropium [place] (Spiriva) 18 Mcg Cap.w.dev, 1 INHALATION INH QHS, (Reported) Allergies Coded Allergies: No Known Allergies (Unverified , 10/31/18) ELIAS MORROW MD Nov 13, 2019 13:23
[2019-11-13] MEDS ORDERED: ATORVASTATIN 10 MG TAB PO SCH (21:00)
== END 2019-11-13 12:49 | disposition home health service (06) | DRG 175 ==
LOC: M ED 00:50 → M ED INP 03:38 → ENRESERV 04:33 → M ICU 05:17 → M PCU 15:08 → M MSPAV 11-02 14:50 → M PCU 11-05 19:51
PROVIDERS: ADMIT Internal Medicine; ATTEND Internal Medicine Nephrology
DX: I26.94 Multiple subsegmental thrombotic pulmonary emboli without acute cor pulmonale (principal); E43 Unspecified severe protein-calorie malnutrition; I50.33 Acute on chronic diastolic (congestive) heart failure; J96.21 Acute and chronic respiratory failure with hypoxia; J96.12 Chronic respiratory failure with hypercapnia; C20 Malignant neoplasm of rectum; J44.1 Chronic obstructive pulmonary disease with (acute) exacerbation; R18.8 Other ascites; G40.209 Localization-related (focal) (partial) symptomatic epilepsy and epileptic syndromes with complex partial seizures, not intractable, without status epilepticus; R55 Syncope and collapse; R07.89 Other chest pain; I27.20 Pulmonary hypertension, unspecified; Z66 Do not resuscitate; F20.9 Schizophrenia, unspecified; I48.0 Paroxysmal atrial fibrillation; Z99.81 Dependence on supplemental oxygen; N40.1 Benign prostatic hyperplasia with lower urinary tract symptoms; R33.9 Retention of urine, unspecified; R91.8 Other nonspecific abnormal finding of lung field; E78.5 Hyperlipidemia, unspecified; I36.1 Nonrheumatic tricuspid (valve) insufficiency; I95.9 Hypotension, unspecified; D53.9 Nutritional anemia, unspecified; Z79.899 Other long term (current) drug therapy; K42.9 Umbilical hernia without obstruction or gangrene

== ENCOUNTER 2019-12-11 10:33 | Inpatient (IN) | payer MEDICARE ==
[~2019-12-11] VITALS: Ht 167.6 cm; Wt 61.6 kg
[~2019-12-11 10:33] MED LIST changes: +AMIO200T3 PO; +DIGO0.123 PO; +KLOR10TA76 PO; +MUCI600T31 PO
[2019-12-11 11:07] LABS: BASO # 0.1 10^3/uL (0.0-0.2); BASO % 0.5 % (0.0-1.0); EOS % 0.3 % (0.0-3.0); HEMATOCRIT 31.5 % (42.0-52.0); HEMOGLOBIN 8.8 g/dl (13.5-17.5); LYMPH # 0.5 10^3/uL (1.5-5.0); LYMPH % 5.4 % (24.0-44.0); MEAN CORPUSCULAR HEMOGLOBIN 29.4 pg (27.0-33.0); MEAN CORPUSCULAR HGB CONC 27.9 g/dl (32.0-36.5); MEAN CORPUSCULAR VOLUME 105.4 fl (80.0-96.0); MONO # 0.6 10^3/uL (0.0-0.8); MONO % 5.8 % (0.0-5.0); NEUTROPHILS # 8.7 10^3/uL (1.5-8.5); NEUTROPHILS % 87.2 % (36.0-66.0); PLATELET COUNT, AUTOMATED 229 10^3/uL (150-450); RED BLOOD COUNT 2.99 10^6/uL (4.30-6.10)
--- NOTE | 2019-12-11 11:13 | REP ---
INDICATION: trauma. COMPARISON: Comparison CT study September 29, 2019.. TECHNIQUE: Helical scanning is acquired. 5 mm axial images were reformatted. Coronal MPR images were generated. FINDINGS: Bone window settings demonstrate an intact bony calvarium. No skull fracture or opaque foreign body seen. There is soft tissue scalp swelling at the vertex just to the left of midline. There is no evidence of skull fracture or incidental bony calvarial lesion. The visualized paranasal sinuses appear clear. No intraorbital abnormality is seen. On soft tissue window setting images; there is mild generalized volume loss. There is extensive vascular calcification in the distal internal carotid and distal vertebral arteries.. Robertson-white differentiation pattern is normal above and below the tentorium. There are is no evidence of intracranial hemorrhage. No mass, edema, infarction, or midline shift is seen. No extra-axial fluid collection is appreciated. IMPRESSION: Vascular calcification. Diffuse atrophy. No acute intracranial abnormality. Scalp swelling at the vertex with overlying dressing. No skull fracture or opaque foreign body. <Electronically signed by Justin Covignton > 12/11/19 [id number]
--- NOTE | 2019-12-11 11:17 | REP ---
INDICATION: trauma. COMPARISON: None. TECHNIQUE: Helical scanning is acquired and overlapping 2 mm high resolution axial images were generated and reviewed at bone and soft tissue window settings. Coronal and sagittal multiplanar re-formations images are generated. FINDINGS: There is no evidence of cervical spine element fracture. No skull base fracture is seen. Cervical vertebral body heights are preserved. Alignment is normal. Facet joints are normally aligned bilaterally at each cervical level on multiplanar re-formations images. There is no evidence of intraspinal or paraspinal hematoma. No extra vertebral abnormality is seen. There is straightening of the normal cervical lordosis. Degenerative disc changes are noted at C3-4, C5-6, C6-7, and to a lesser extent the other levels. There is osteoarthritic spurring and narrowing at the articulation between the dens and anterior arch of C1. Bilateral osteoarthritic facet disease is noted at multiple levels. Multifocal vascular calcification is observed. There are advanced pulmonary emphysematous changes in the upper lung bullock bilaterally. IMPRESSION: Straightening and degenerative spondylosis changes as noted above. No fracture or other traumatic abnormality. Advanced emphysematous changes are seen in the upper lung bullock. Vascular calcifications noted.. <Electronically signed by Justin Covington > 12/11/19 1650
[2019-12-11 11:55] LABS: BLOOD UREA NITROGEN 18 MG/DL (7-18); CALCIUM LEVEL 8.1 MG/DL (8.8-10.2); CARBON DIOXIDE LEVEL 43 MEQ/L (21-32); CHLORIDE LEVEL 101 MEQ/L (98-107); CREATININE FOR GFR 1.02 MG/DL (0.70-1.30); DIGOXIN LEVEL 0.4 NG/ML (0.5-2.0); GLOMERULAR FILTRATION RATE > 60.0 (>42); GLUCOSE, FASTING 86 MG/DL (70-100); POTASSIUM SERUM 4.5 MEQ/L (3.5-5.1); SODIUM LEVEL 143 MEQ/L (136-145)
--- NOTE | 2019-12-11 12:03 | REP ---
INDICATION: trauma. COMPARISON: Chest 11/06/2019 TECHNIQUE: Four views of the left ribs are performed. FINDINGS: No rib fracture or bone lesion is seen. A single view of the chest demonstrates no acute infiltrate, pneumothorax or pleural effusion. The heart appears to be at the upper limits normal in size. There is calcification of the thoracic aorta. IMPRESSION: No evidence of left rib fracture. <Electronically signed by Nader Robertson > 12/11/19 1155
[2019-12-11] MEDS ORDERED: LIDOCAINE W/EPINEPHRINE 1% 20ML VIAL As Ordered ONE (12:35)
[2019-12-11] MEDS ORDERED: LIDOCAINE W/EPINEPHRINE 1% 20ML VIAL SC ONE (12:45)
[2019-12-11] MEDS ORDERED: ATEN25TA PO (13:46)
[2019-12-11] MEDS ORDERED: ATOR1TAB19 PO (13:46)
[2019-12-11] MEDS ORDERED: DIGO0.123 PO (13:46)
[2019-12-11] MEDS ORDERED: AMIO200T3 PO (13:47)
--- NOTE | 2019-12-11 16:19 | HPEPDOC ---
General Date of Admission Dec 11, 2019 at 13:52 Date of Service: Dec 11, 2019 Attending Physician: AGUEDA GALLEGOS MD Chief Complaint The patient is a 74-year-old male admitted with a reason for visit of Adverse Effect Of Beta Baylee Fall Scalp Lac. Source: Patient History of Present Illness HPI: The patient is a 74yo male presenting to the ED after he fell getting out of bed this morning and hit his head. He awoke around 11am to go to the bathroom . Upon standing, he said his body felt like it was " weight" and he dropped, hitting his head on the metal headboard, creating a laceration 4cm in length in the L frontotemporal region. There was no witness to this fall. He states that he has experienced similar episodes over the last two months, but this was the first time he was injured during one. He ate the night before and slept well. He has had no recent or current nausea or vomiting. He denied experiencing dizziness, headaches, blackouts, numbness shaking or palpitations before, during or after the fall. He pulled a pull-chord located near his bed in his home and was brought by EMS to the ED. The ED technicians stitched his wound and the hospitalist team was called for admission. Home Medications Scheduled Amiodarone HCl (Amiodarone HCl) 200 Mg Tablet, 200 MG PO BID, (Reported) Atenolol (Atenolol) 25 Mg Tablet, 25 MG PO BID, (Reported) Atorvastatin Calcium (Atorvastatin Calcium) 10 Mg Tablet, 10 MG PO QHS, (Reported) Digoxin (Digoxin) 125 Mcg Tablet, 125 MCG PO DAILY, (Reported) Ferrous Sulfate (Ferrous Sulfate) 325 Mg Tablet.dr, 325 MG PO DAILY, (Reported) Folic Acid (Folic Acid) 1 Mg Tablet, 1 MG PO DAILY, (Reported) Magnesium Oxide (Magnesium Oxide) 400 Mg Tablet, 400 MG PO DAILY, (Reported) Olanzapine (Olanzapine) 15 Mg Tablet, 15 MG PO QHS, (Reported) Sertraline Hcl (Sertraline HCl) 50 Mg Tablet, 50 MG PO DAILY, (Reported) Tamsulosin HCl (Flomax) 0.4 Mg Capsule, 0.4 MG PO DAILY, (Reported) Allergies Coded Allergies: No Known Allergies (Unverified , 10/31/18) Past Medical History Medical History PMHx: The patient was diagnosed with lung cancer 6m ago. The patient has HTN and COPD. He was seen in the ED on Oct.17 for atrial fibrillation and atrial flutter. Meds: He is on 4L of O2 at home. Surgical History SurgHx: He has has a R knee replacement surgery, refracture healing of the L shoulder, L carotid artery stent placement, and a bellybutton hernia repair. He reports no hospitalizations for anything other than his surgeries. Family History FamHx: His mother passed of throat cancer in 1990. His father of vascular stroke at 56yo. Social History Recent Travel/Sick Contacts: Denies: Recent travel, Recent sick contacts SocHx: He is a former smoker, having smoked 3 packs a day for 60 years. He quit 6m ago due to his hospitalizations and being on O2. He will usually drink 12 oz of draft beer a night, and his last drink was 3d ago. He denies using illicit drugs. No recent travel. No pets in the home. He lives at home. Hs granddaughter is a nurse and will come to check up on him, help him with his medications and clean up. He retired at 66, and used to work for [employer] History Current/History of A-Fib/PAF?: Yes Current PO Anticoag Therapy: No Age/Risk Factor Scoring [facility]: [employer] Response (Comments) Value Age Risk Factor Age 65-74 years old 1 Gender Risk Factor Male 0 Hx of CHF No 0 Hx of HTN Yes 1 Hx of Stroke/TIA/or VTE No 0 Hx of Diabetes No 0 Hx of Vascular Disease No 0 Total 2 Treatment Treatment ordered: NONE Reason Anticoagulant not given: Current bleeding Review of Systems Other systems General: Positive for previous lung cancer diagnosis, and chills. Denied weight loss HEENT: Positive for sinus problems, runny nose, post-nasal drip and sore throat. Denies difficulty with hearing, nosebleeds, facial pain or numbness CV: Denies irregular heartbeat, racing heart, chest pains, swelling of feet or legs Respiratory: Positive for coughing, white sputum production, and oxygen at home. Denies shortness of breath and coughing up blood GI: Denies constipation, diarrhea, abdominal pain, vomiting, blood in stools, unexplained change in bowel habits, incontinence. : Denies painful urination, frequent urination, urgency. Reports dena Skin: Denies skin changes Neuro: Positive for blurry vision in the mornings. Denies frequent headaches, double vision, weakness, change in sensation, problems with walking or balance, dizziness, tremor, loss of consciousness Physical Examination Other physical findings General: Patient is awake and cooperative. He is answering questions readily. Patient is not in any acute distress. HEENT: There is a 4cm lesion on his L frontotemporal region of his head, which had been stitched closed at time of examination. CN II-XII are intact. Eyes are PERLRA. Conjunctiva is normal. Lips are acyanotic. CV: Heart rate is bradycardic with a normal rhythm. A murmur is heard at the 5th ICS at midaxillary line. LUNGS: Lung sounds are diminished in all lung bullock, and are absent at the lung bases b/l. Positive for faint wheezing. No rales or rhonchi were noted. ABDOMEN: There is a small, ~3cm ventral incisional hernia on his abdomen. There is a protuberant xiphoid process that the patient states has been there for many years. There are two nevi custodial between his xiphoid process and umbilicus. One is round, ~1cm in diameter and is pink/red, the other is ovular, ~2cm in greatest length and is dark brown. patient states they have been there most of hsi life and have not changed. EXTREMITIES: There is no edema in the legs. There is a small lesions on the R arm where the patient fell from presenting incident. There is a nonpurulent rash on his L arm. Vital Signs Vital Signs Date Time Temp Pulse Resp B/P (MAP) Pulse Ox O2 Delivery O2 Flow Rate FiO2 12/11/19 13:31 40 100 12/11/19 13:01 124/58 (80) 12/11/19 10:48 24 Nasal Cannula 2.0 12/11/19 10:44 96.8 Laboratory Data Labs 24H Laboratory Tests 2 12/11/19 10:56: Immature Granulocyte % (Auto) 0.8, Neutrophils (%) (Auto) 87.2H, Lymphocytes (%) (Auto) 5.4L, Monocytes (%) (Auto) 5.8H, Eosinophils (%) (Auto) 0.3, Basophils (%) (Auto) 0.5, Neutrophils # (Auto) 8.7H, Lymphocytes # (Auto) 0.5L, Monocytes # (Auto) 0.6, Eosinophils # (Auto) 0.0, Basophils # (Auto) 0.1, Nucleated Red Blood Cells % (auto) 0.0, Anion Gap , Glomerular Filtration Rate > 60.0, Calcium Level 8.1L, Digoxin Level 0.4L CBC/BMP Laboratory Tests 12/11/19 10:56 Assessment/Plan ASSESSMENT/PLAN The patient is a 74yo man, presenting to the ED after a fall, in which his body felt like " weight" and he lacerated his head against the metal headboard, concerning for hypoperfusion due to bradycardia. 1. Bradycardia secondary to medications -Hold his amiodarone, atenolol, and digoxin -Constant telemetry -Observe his BP -If BP falls to <90 systolic, transfer to ICU and consult cardiology for transcutaneous pacing. -Prior echocardiogram on October 09, [address] Hernandes reports "Aortic valve sclerosis with mild aortic regurgitation but no aortic stenosis. Moderate to severe tricuspid regurgitation." 2. Mechanical Fall -Check TSH for cause of a-fib exasperation. -Toxicology screen 3. Head Laceration -The lesion has been stitched in the ED 4. Lung Cancer -Consult oncology as outpatient 5. DVT Prophylaxis -Elbert's Thromboembolic deterrent stockings -Sequential Compression Devices Dispo: Pending clinical improvement. Expected discharge in 24-48hrs Code Status: DNR and DNI Plan / VTE VTE Prophylaxis Ordered?: No VTE Exclusion Pharmacological: Active Bleeding Plan Disposition Dispo: Pending improvement of bradycardia CHRISTIAN VANCE Dec 11, 2019 16:19
[2019-12-11 17:07] VITALS: BP 134/60
[2019-12-11 17:10] VITALS: PULSE 46
[2019-12-11 19:25] LABS: CK-MB VALUE MASS 2.8 NG/ML (<3.6); CPK CREATINE PHOSPHOKINASE 29 U/L (39-308); MB/CK RELATIVE INDEX 9.66 (< OR =4); TROPONIN I < 0.02 NG/ML (< 0.10)
[2019-12-11 20:00] VITALS: BP 142/60; PULSE 47
[2019-12-12] VITALS (14 sets, daily range): BP systolic 99–138; BP diastolic 53–65
[2019-12-12] MEDS: ACETAMINOPHEN TAB 650MG DOSE (2X325MG) PO PRN (01:40)
[2019-12-12 06:18] LABS: HEMATOCRIT 24.3 % (42.0-52.0); MEAN CORPUSCULAR HEMOGLOBIN 29.3 pg (27.0-33.0); MEAN CORPUSCULAR VOLUME 104.7 fl (80.0-96.0); PLATELET COUNT, AUTOMATED 198 10^3/uL (150-450); RED BLOOD COUNT 2.32 10^6/uL (4.30-6.10); WHITE BLOOD COUNT 11.2 10^3/uL (4.0-10.0)
[2019-12-12 06:28] LABS: HEMOGLOBIN 6.8 g/dl (13.5-17.5)
[2019-12-12 06:40] LABS: BLOOD UREA NITROGEN 21 MG/DL (7-18); CALCIUM LEVEL 7.8 MG/DL (8.8-10.2); CARBON DIOXIDE LEVEL 42 MEQ/L (21-32); CHLORIDE LEVEL 101 MEQ/L (98-107); CREATININE FOR GFR 1.03 MG/DL (0.70-1.30); GLOMERULAR FILTRATION RATE > 60.0 (>42); GLUCOSE, FASTING 98 MG/DL (70-100); POTASSIUM SERUM 4.6 MEQ/L (3.5-5.1); SODIUM LEVEL 143 MEQ/L (136-145)
[2019-12-12] MEDS: FERROUS SULFATE 325MG TAB PO SCH (08:27)
[2019-12-12] MEDS: SERTRALINE HCL 50 MG TAB PO SCH (08:27)
[2019-12-12] MEDS: TAMSULOSIN 0.4 MG CAP PO SCH (08:27)
[2019-12-12] MEDS: FOLIC ACID 1 MG TAB PO SCH (08:27)
[2019-12-12] MEDS: MAGNESIUM OXIDE 400 MG TAB (MAG-OX) PO SCH (08:27)
--- NOTE | 2019-12-12 09:16 | ECGEPIP ---
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
[2019-12-12] MEDS ORDERED: FUROSEMIDE 40MG/4ML VIAL (J1940) IV ONE (11:30)
--- NOTE | 2019-12-12 11:45 | IPNPDOC ---
Text Note Date of Service The patient was seen on 12/12/19. NOTE SUBJECTIVE: At 5:30 this morning the patient's Hbg had dropped to 6.8. He was ordered 2 units of blood for transfusion, which had not been infused at time of examination. The patient was seen at bedside. He was lying in bed and eating breakfast. He states that he is cold, despite being wrapped in 3 blankets. He slept well the previous night, but required Tylenol to treat the pain from his head laceration. He is not in any acute pain during exam, but states that it hurts if me moves. He denies any dizziness, headaches, blackouts, numbness shaking or palpitations. He states that his heartbeat still feels slow. OBJECTIVE: GENERAL: The patient is not in any acute distress, and is alert and oriented x3. HEENT: There is a stitched 4cm lesion in his frontotemporal skull. Eyes are PEERLA. Conjunctiva pale, and lips acyanotic. He has a nasal canula in the nares. CV: Regular rhythm, but is still bradycardic. A murmur is heard at the 5th ICS at the midaxillary line. Capillary refill is >3s. LUNGS: Lung sounds are diminished in all lung bullock, and are absent at the lung bases b/l. Positive for faint wheezing in the upper lobes. No rales, rubs or rhonchi were noted. ABDOMEN: Bowel sounds are heard in all four quadrants. There is a small, ~3cm ventral incisional hernia on his abdomen that is nonpainful. EXTREMITIES: There is some pitting edema in his legs. There are small lesions in his R arm where the patient fell. There is a nonpurulent rash on his L arm ASSESSMENT/PLAN: 1. Bradycardia -Continue to hold atenolol, amiodarone and digoxin -Continue to observe -Repeat EKG -Repeat Echocardiogram -Consult Cardiology for possible pacemaker placement if EKG worsens or bradycardia does not improve by Nov 2. Anemia -2 units of blood transfused. -Folic acid 1mg daily, PO -Ferrous Sulfate 325mg PO -Mag-Ox 400mg daily PO 3. Head Laceration -The wound has been stitched and bandaged -Continue Tylenol 650 mg q6h PRN PO for pain 4. Edema in the Legs -Lasix 40mg IV bolus 5. Depression -Zoloft 50mg daily PO 6. UG Symptoms -Continue Flomax 0.4mg daily PO Dispo: Pending improvement of anemia and bradycardia. VS,Fishbone, I+O VS, Fishbone, I+O Laboratory Tests 12/12/19 05:32 12/12/19 05:33 Vital Signs Date Time Temp Pulse Resp B/P (MAP) Pulse Ox O2 Delivery O2 Flow Rate FiO2 12/12/19 10:25 97.7 49 129/60 92 Nasal Cannula 2.0 12/12/19 10:11 20 I&O- Last 24 Hours up to 6 AM 12/12/19 06:00 Intake Total 780 ml Output Total 300 ml Balance 480 ml GME ATTESTATION GME ATTESTATION My faculty preceptor for this patient encounter was physically present during the encounter and was fully available. All aspects of the patient interview, examination, medical decision making process, and medical care plan development were reviewed and approved by the faculty preceptor. The faculty preceptor is aware and concurs with the plan as stated in the body of this note and will attest to such by his/her cosignature. CHRISTIAN VANCE Dec 12, 2019 11:44
[2019-12-12 16:24] LABS: HEMATOCRIT 30.2 % (42.0-52.0); MEAN CORPUSCULAR HEMOGLOBIN 29.7 pg (27.0-33.0); MEAN CORPUSCULAR HGB CONC 29.1 g/dl (32.0-36.5); PLATELET COUNT, AUTOMATED 166 10^3/uL (150-450); RED BLOOD COUNT 2.96 10^6/uL (4.30-6.10); WHITE BLOOD COUNT 10.9 10^3/uL (4.0-10.0)
[2019-12-12 16:29] LABS: HEMOGLOBIN 8.8 g/dl (13.5-17.5)
[2019-12-12] MEDS: ATORVASTATIN 10 MG TAB PO SCH (19:50)
[2019-12-12] MEDS ORDERED: OLANZapine 5 MG TAB PO SCH (21:00)
[2019-12-13] VITALS: BP 121/59
[2019-12-13 04:00] VITALS: BP 143/65
[2019-12-13 08:00] VITALS: BP 100/46
--- NOTE | 2019-12-13 09:15 | IPNPDOC ---
Text Note Date of Service The patient was seen on 12/13/19. NOTE SUBJECTIVE: The patient was seen at bedside. He was sleeping comfortably and was woken for interview. There were no incidents overnight, and he reports that he is feeling much better after the transfusion. He is not as cold as yesterday, but is still wrapped in several blankets. He has no head pain at the moment from his injury, but reports that his hear hurts when he moves. He denies any dizziness, headaches, blackouts, numbness, palpitations, nausea, vomiting, pyuria or fevers. OBJECTIVE: GENERAL: The patient is not in any acute distress, and is alert and oriented x3. HEENT: There is a stitched 4cm lesion in his L frontotemporal skull. Eyes are PEERLA, conjunctiva is pink, lips acyanotic. He has a nasal canula in the nares. CV: Regular rhythm, bradycardia has improved some in the last 24hr, but not resolved. A murmur is present at the 5th ICS at the midaxillary line. Capillary refill is <2s LUNGS: Lung sounds diminished in all lung bullock and are not heard at the lung bases. There is wheezing b/l in the upper lobes. No rales, rhonchi or rubs are noted. ABDOMEN: There is no abdominal tenderness. Bowel sounds are heard. There is a small, ~3cm ventral incisional hernia on his abdomen that is not painful. EXTREMITIES: There is decreased edema in the legs but it is still present. There are small, healing lesions in his R arm where the patient fell. ASSESSMENT/PLAN 1. Bradycardia -Continue to hold atenolol, amiodarone, and digoxin -Continue to monitor with continuous telemetry -Consult Cardiology for possible pacemaker placement if EKG worsens or bradycardia does not improve by , Dec 14, 2019 -Repeat EKG -Repeat Echocardiogram 2. Anemia -Hgb has improved after transfusion of 2units of blood. From 6.8 to 8.8 today. -Continue Ferrous Sulfate 325mg daily PO -Continue Folic Acid 1mg daily PO -Continue Mag Ox 400 mg daily PO 3. Head Laceration -The wound has been stiched and looks to be healing well. -Continue Tylenol 650mg q6h PRN PO for pain 4. Edema in the legs -1 dose of Lasix was given yesterday, and leg edema is decreasing -Continue to observe 5. Depression -Zoloft 50mg daily PO 6. UG Symptoms -Continue Flomax 0.4mg daily PO 7. Mechanical Falling -Have PT work with the patient to improve ambulation 8. DVT Prophylaxis -Elbert's Thromboembolic deterrent stockings -Sequential Compression Devices Dispo: Pending improvement of anemia and bradycardia. Anticipated discharge 24- 48hrs VS,Fishbone, I+O VS, Fishbone, I+O Laboratory Tests 12/12/19 16:06 Vital Signs Date Time Temp Pulse Resp B/P (MAP) Pulse Ox O2 Delivery O2 Flow Rate FiO2 12/13/19 08:00 98.1 53 18 100/46 (64) 94 Nasal Cannula 3.0 I&O- Last 24 Hours up to 6 AM 12/13/19 06:00 Intake Total 2600 ml Output Total 2060 ml Balance 540 ml GME ATTESTATION GME ATTESTATION My faculty preceptor for this patient encounter was physically present during the encounter and was fully available. All aspects of the patient interview, examination, medical decision making process, and medical care plan development were reviewed and approved by the faculty preceptor. The faculty preceptor is aware and concurs with the plan as stated in the body of this note and will attest to such by his/her cosignature. CHRISTIAN VANCE Dec 13, 2019 09:15
[2019-12-13] MEDS: FOLIC ACID 1 MG TAB PO SCH (10:00)
[2019-12-13] MEDS: TAMSULOSIN 0.4 MG CAP PO SCH (10:01)
[2019-12-13] MEDS: SERTRALINE HCL 50 MG TAB PO SCH (10:01)
[2019-12-13] MEDS: FERROUS SULFATE 325MG TAB PO SCH (10:01)
[2019-12-13] MEDS: MAGNESIUM OXIDE 400 MG TAB (MAG-OX) PO SCH (10:01)
[2019-12-13] MEDS ORDERED: SLF 3 ML SYR IV PRN (11:45)
[2019-12-13 11:46] VITALS: BP 161/69
[2019-12-13] MEDS: SLF 3 ML SYR IV SCH ×2 (14:00→21:20)
[2019-12-13 15:52] VITALS: BP 133/63
[2019-12-13 20:00] VITALS: BP 133/60
[2019-12-13] MEDS: ATORVASTATIN 10 MG TAB PO SCH (21:20)
[2019-12-14] VITALS: BP 125/60
[2019-12-14 04:00] VITALS: BP 147/67
[2019-12-14 05:38] LABS: BASO % 0.2 % (0.0-1.0); EOS % 0.3 % (0.0-3.0); HEMATOCRIT 30.9 % (42.0-52.0); LYMPH # 0.5 10^3/uL (1.5-5.0); LYMPH % 5.4 % (24.0-44.0); MEAN CORPUSCULAR HEMOGLOBIN 29.4 pg (27.0-33.0); MEAN CORPUSCULAR HGB CONC 29.1 g/dl (32.0-36.5); MONO # 0.9 10^3/uL (0.0-0.8); MONO % 8.7 % (0.0-5.0); NEUTROPHILS # 8.2 10^3/uL (1.5-8.5); NEUTROPHILS % 84.2 % (36.0-66.0); PLATELET COUNT, AUTOMATED 173 10^3/uL (150-450); RED BLOOD COUNT 3.06 10^6/uL (4.30-6.10); WHITE BLOOD COUNT 9.8 10^3/uL (4.0-10.0)
[2019-12-14 06:11] LABS: BLOOD UREA NITROGEN 17 MG/DL (7-18); CALCIUM LEVEL 7.7 MG/DL (8.8-10.2); CARBON DIOXIDE LEVEL 41 MEQ/L (21-32); CHLORIDE LEVEL 102 MEQ/L (98-107); CREATININE FOR GFR 0.74 MG/DL (0.70-1.30); GLOMERULAR FILTRATION RATE > 60.0 (>42); GLUCOSE, FASTING 76 MG/DL (70-100); POTASSIUM SERUM 4.5 MEQ/L (3.5-5.1); SODIUM LEVEL 143 MEQ/L (136-145)
[2019-12-14] MEDS: SLF 3 ML SYR IV SCH ×3 (06:39→20:41)
--- NOTE | 2019-12-14 07:15 | ECHO ---
DATE OF PROCEDURE: 12/12/2019 Age: 74 Gender: Male Height: 168 cm Weight: 58 kg REFERRING PHYSICIAN: Dr. Rocha INDICATION: Abnormal electrocardiogram (EKG). MEASUREMENTS: IVS 2.0 LV 4.9 LVPW 1.8 LA 4.9 Aorta 3.7 IVC 2.1 Mitral E wave velocity 92, A wave 105 E prime septal 6.7 A prime lateral 9.3 FINDINGS: The study is of acceptable technical quality. The patient is in sinus rhythm. Left ventricle is normal size and overall normal systolic function. Estimated left ventricular ejection fraction (LVEF) approximately 65%. Severe left ventricular hypertrophy is noted. Right ventricle is dilated, but normally contractile. Both atria are enlarged. Aortic valve is minimally sclerotic, but is tricuspid and has normal mobility. Mitral valve appears normal based on limited views. Tricuspid valve also appears normal based on limited views. Pulmonic valve was well seen and appears normal. No pericardial effusion is noted. Inferior vena cava is dilated and only partially collapses with inspiration indicative of at least mildly elevated central venous pressure. Aortic root is normal. Aortic arch and abdominal aorta were not well seen. There is an echodensity adjacent to left atrium, most likely representing persistent left superior vena cava. Doppler interrogation reveals no aortic stenosis and trace aortic insufficiency. There is competent mitral valve. There is moderate tricuspid insufficiency with very eccentric TR jet. Calculated pulmonary artery pressure is in high 80s or higher corresponding to severe pulmonary hypertension. Pulmonic valve is functionally competent but for trivial pulmonic insufficiency. Mitral inflow pattern and tissue Doppler imaging of mitral annulus reveal grade 1 diastolic dysfunction. CONCLUSIONS: 1. Study is of acceptable technical quality, underlying sinus rhythm. 2. Normal LV size with severe left ventricular hypertrophy (LVH) and preserved LV systolic function. Grade 1 diastolic dysfunction 3. Dilated right ventricle. 4. Biatrial enlargement. 5. No hemodynamically significant aortic and mitral valvular disease. 6. Moderate TR with very eccentric jet. Severe pulmonary hypertension (estimated pulmonary artery pressure at least 85 mmHg). 7. Elevated central venous pressure. 8. Suggestive of persistent left superior vena cava. COMMENTS: The study does not provide sufficient information to decipher etiology of pulmonary hypertension. Most obvious explanation though is hypertensive heart disease with secondary pulmonary hypertension related to congestive heart failure. [facility]
[2019-12-14 07:49] VITALS: BP 142/66
[2019-12-14] MEDS: FOLIC ACID 1 MG TAB PO SCH (09:43)
[2019-12-14] MEDS: SERTRALINE HCL 50 MG TAB PO SCH (09:43)
[2019-12-14] MEDS: MAGNESIUM OXIDE 400 MG TAB (MAG-OX) PO SCH (09:43)
[2019-12-14] MEDS: TAMSULOSIN 0.4 MG CAP PO SCH (09:44)
[2019-12-14] MEDS: FERROUS SULFATE 325MG TAB PO SCH (09:44)
[2019-12-14 11:31] VITALS: BP 136/56
--- NOTE | 2019-12-14 13:13 | IPNPDOC ---
Text Note Date of Service The patient was seen on 12/14/19. NOTE SUBJECTIVE: The patient was seen at bedside. He was awake and sitting up in bed. Breakfast had arrived but he had not yet eaten. There were no incidents overnight. He reports that he is feeling much better. The chest pain reported yesterday had resolved, his head wound is not causing him any discomfort, and he is no longer feeling lightheaded. He is not as cold in room aid as he was previously. He denies dizziness, headaches, blackouts, numbness, palpitations, nausea, vomiting, pyuria, fevers, constipation or diarrhea. OBJECTIVE: VITALS: See below GENERAL: The patient is not in any acute distress and is alert and oriented X3. HEENT: There is a stitched 4cm lesion on the frontotemporal area of the head. Eyes are PERRLA, conjunctiva is pink and lips are acyanotic. He has a nasal canula in the nares. CV: Regular rate and rhythm, which has improved to HR in the 60s today. A murmur is present at the 5th ICS at the midaxillary line. Capillary refill is <2s. LUNGS: Lung sounds are diminished in all lung bullock and are not heard at the lung bases b/l. There is wheezing b/l in the upper lobes. No rales, rubs or rhonchi are noted. ABDOMEN: There is no abdominal tenderness. There is small, ~3cm ventral incisional hernia on his abdomen that is not painful. EXTREMITIES: There is some mild edema in the legs, much improved but still present. There are small, healing lesions in the R arm. ASSESSMENT/PLAN Patient is a 74yo male with a hx of COPD, lung cancer, and a-fib presented after falling. He was kept in the hospital for improvement of his bradycardia and anemia of blood loss. 1. Bradycardia -Improved to rate between 62-68 -Continue to hold atenolol, amiodarone, and digoxin -Continue to monitor with continuous telemetry -Repeat EKG showed R bundle branch block -Repeat Echocardiogram showed the following --a Normal LV size with severe left ventricular hypertrophy (LVH) and preserved LV systolic function. Grade 1 diastolic dysfunction --b Dilated right ventricle. --c Biatrial enlargement. --d No hemodynamically significant aortic and mitral valvular disease. --e Moderate TR with very eccentric jet. Severe pulmonary hypertension (estimated pulmonary artery pressure at least 85 mmHg). --f Elevated central venous pressure. --g Suggestive of persistent left superior vena cava. 2. Anemia -Anemia much improved. Hgb increased from 8.8 to 9 in last 24hrs -Continue Ferrous Sulfate 325mg daily PO -Continue Folic Acid 1mg daily PO -Continue Mag Ox 400mg daily PO 3. Head Laceration -The wound has been stitched and looks to be healing well -Continue Tylenol 650mg q6h PO for pain 4. Edema in the Legs -1 Dose of Lasix was given on Dec 11 and leg edema is markedly decreased -Continue to observe 5. Depression -Continue Zoloft 50mg daily PO 6. UG Symptoms -Continue Flomax 0.4mg daily PO 7. Mechanical Falling -Have PT work with the patient to improve ambulation 8. DVT Prophylaxis -Elbert's Thromboembolic deterrent stockings -Sequential Compression Devices Dispo: Pending improvement of anemia and observation of bradycardia. Anticipated discharge 24hrs. VS,Fishbone, I+O VS, Fishbone, I+O Laboratory Tests 12/14/19 05:00 Vital Signs Date Time Temp Pulse Resp B/P (MAP) Pulse Ox O2 Delivery O2 Flow Rate FiO2 12/14/19 11:31 98.1 64 18 136/56 (82) 93 Nasal Cannula 3.0 I&O- Last 24 Hours up to 6 AM 12/14/19 06:00 Intake Total 600 ml Output Total 0 ml Balance 600 ml GME ATTESTATION GME ATTESTATION My faculty preceptor for this patient encounter was physically present during the encounter and was fully available. All aspects of the patient interview, examination, medical decision making process, and medical care plan development were reviewed and approved by the faculty preceptor. The faculty preceptor is aware and concurs with the plan as stated in the body of this note and will attest to such by his/her cosignature. CHRISTIAN VANCE Dec 14, 2019 13:13
[2019-12-14 15:41] VITALS: BP 119/60
[2019-12-14 20:00] VITALS: BP 109/54
[2019-12-14] MEDS: ATORVASTATIN 10 MG TAB PO SCH (20:41)
[2019-12-14] MEDS: ACETAMINOPHEN TAB 650MG DOSE (2X325MG) PO PRN (22:32)
--- NOTE | 2019-12-14 22:47 | ECGEPIP ---
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 No significant change compared with 12/11/2019. Electronically Signed on 12-14-2019 22:47:40 EDT by Jermaine Ochoa
[2019-12-15] VITALS: BP 100/50
[2019-12-15 04:00] VITALS: BP 101/54
[2019-12-15 05:25] LABS: BASO % 0.5 % (0.0-1.0); EOS # 0.1 10^3/uL (0.0-0.5); EOS % 0.6 % (0.0-3.0); HEMOGLOBIN 8.6 g/dl (13.5-17.5); LYMPH # 0.7 10^3/uL (1.5-5.0); MEAN CORPUSCULAR HEMOGLOBIN 29.5 pg (27.0-33.0); MEAN CORPUSCULAR HGB CONC 28.7 g/dl (32.0-36.5); MEAN CORPUSCULAR VOLUME 102.7 fl (80.0-96.0); MONO # 0.8 10^3/uL (0.0-0.8); MONO % 9.5 % (0.0-5.0); NEUTROPHILS # 6.2 10^3/uL (1.5-8.5); NEUTROPHILS % 78.7 % (36.0-66.0); PLATELET COUNT, AUTOMATED 178 10^3/uL (150-450); RED BLOOD COUNT 2.92 10^6/uL (4.30-6.10); WHITE BLOOD COUNT 7.9 10^3/uL (4.0-10.0)
[2019-12-15 05:47] LABS: BLOOD UREA NITROGEN 18 MG/DL (7-18); CALCIUM LEVEL 7.7 MG/DL (8.8-10.2); CARBON DIOXIDE LEVEL 41 MEQ/L (21-32); CHLORIDE LEVEL 101 MEQ/L (98-107); CREATININE FOR GFR 0.81 MG/DL (0.70-1.30); GLOMERULAR FILTRATION RATE > 60.0 (>42); GLUCOSE, FASTING 89 MG/DL (70-100); MAGNESIUM LEVEL 2.1 MG/DL (1.8-2.4); POTASSIUM SERUM 4.3 MEQ/L (3.5-5.1); SODIUM LEVEL 143 MEQ/L (136-145)
[2019-12-15] MEDS: SLF 3 ML SYR IV SCH (06:20)
[2019-12-15 08:00] VITALS: BP 140/63
--- NOTE | 2019-12-15 09:06 | ECGEPIP ---
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
[2019-12-15] MEDS: SERTRALINE HCL 50 MG TAB PO SCH (09:28)
[2019-12-15] MEDS: MAGNESIUM OXIDE 400 MG TAB (MAG-OX) PO SCH (09:28)
[2019-12-15] MEDS: FOLIC ACID 1 MG TAB PO SCH (09:28)
[2019-12-15] MEDS: FERROUS SULFATE 325MG TAB PO SCH (09:28)
[2019-12-15] MEDS: TAMSULOSIN 0.4 MG CAP PO SCH (09:28)
--- NOTE | 2019-12-15 11:37 | DS.PDOC ---
Discharge Summary General Date of Admission Dec 11, 2019 at 13:52 Date of Discharge Dec 15, 2019 Primary Care Physician: A Attending Physician: AGUEDA GALLEGOS MD Discharge Summary PROCEDURES PERFORMED DURING STAY: None ADMITTING DIAGNOSES: 1. Mechanical Fall. 2. Bradycardia secondary to medications 3. Posthemorrhagic anemia DISCHARGE DIAGNOSES: 1. Bradycardia secondary to medications 2. Posthemorrhagic anemia COMPLICATIONS/CHIEF COMPLAINT: Adverse Effect Of Beta Baylee Fall Scalp Lac. HISTORY OF PRESENT ILLNESS: The patient awoke around 11am on the morning of . When he stood to get out of bed, he felt that his body became weight, and he fell, hitting and lacerating his head on the metal headboard of his bed. He denies any dizziness, blackouts or tremors prior to fall. He immediately pulled a bull chord next to his bed. EMS brought the patient to the ED, where he was found to have bradycardia. Two months prior, the patient had been seen in the ED for atrial fibrillation, and at that time has been prescribed atenolol, amiodarone and digoxin, which was suspected to have led to the bradycardia causing his fall. His head wound was stitched closed in the ED, and the hospitalist team was called to manage his bradycardia and blood loss. HOSPITAL COURSE: The patient was admitted, and on the first day there were no acute events. The atenolol, amiodarone and digoxin prescribes at his previous ED visit was held to raise his heart rate. He was placed on ferrous sulfate, folic acid, and Mag-Ox to facilitate hematopoiesis. On Dec 11 he was found to be anemic, with a Hgb of 6.8. Two units of blood were transfused. On the same day, Dec 11, he developed edema in his legs. He was prescribed one dose of 40mg Lasix IV, and the edema in his legs resolved in the following days. His heart rate zahida steadily over the course of his stay, and finally reached sinus rate of 60 bpm on Dec 13. He was given Tylenol to treat pain in his head wound, and continued his home Zoloft and Flomax. Repeat echocardiogram was ordered afte r his medications had been held, and EKG was repeated to evaluate his bradycardia. He was found to have developed complete R bundle branch block, and was held overnight for observation. On day of discharge his heart rate had improved to the 60s-70s. The patient was seen by PT and cleared, and he was discharged feeling better with instructions to followup with his manager nuclear for heart symptoms as an outpatient. Patient is at high risk for readmission if he is not fully capable of taking care of himself. The patient has refused placement into a care facility, and the family is unable to provide 24/7 care. The family, including a granddaughter who is a nurse, checks in on him multiple times a day. The patient and family are aware that this is an unsafe discharge and are aware of the risks of this including further injury and . DISCHARGE MEDICATIONS: Please see below. ALLERGIES: Please see below. PHYSICAL EXAMINATION ON DISCHARGE: VITAL SIGNS: Please see below. GENERAL: The patient is comfortable, sitting upright in a chair. He has just eaten breakfast and is pleasant overall. He is alert and orientedx3. HEENT: Eyes were PERRLA. Lips are acyanotic NECK: The thyroid is not palpated. CARDIOVASCULAR EXAMINATION: S1 and S2 sounds are heard. There is a murmur at the R 5th ICS at the midaxillary line. Capillary refill is <2s in fingers. Radial, popliteal and pedal pulses are equal. RESPIRATORY EXAMINATION: Lungs sounds are decreased b/l. Wheezing is heard in upper lobes b/l. No rales, rubs or rhonchi are noted. ABDOMINAL EXAMINATION: Abdomen is soft, nondistended and nontender. There is a ~3cm ventral incisional hernia that is nonpainful. EXTREMITIES: There is no edema in the legs SKIN: There is a nonpurulent rash on the L forearm that was present on admissi on. There are two nevi on his abdomen, one ~1cm in diameter, round and pink, the other ~2cm in length, and brown. Patient states these nevi have been present his entire life. No new rashes or lesions. NEUROLOGICAL EXAMINATION: CN II-XII grossly intact. Strength 5/5 in upper and lower extremities. Dermatomes bilateral in upper limbs. LABORATORY DATA: Please see below. IMAGIN12/11/[address] Robertson IMPRESSION: No evidence of left rib fracture. 12/11/[address] Covington IMPRESSION: Vascular calcification. Diffuse atrophy. No acute intracranial abnormality. Scalp swelling at the vertex with overlying dressing. No skull fracture or opaque foreign body. 12/11/[address] IMPRESSION: Straightening and degenerative spondylosis changes as noted above. No fracture or other traumatic abnormality. Advanced emphysematous changes are seen in the upper lung bullock. Vascular calcifications noted. 12/11/[address] Tucker BORDERLINE RIGHT AXIS DEVIATION, INCOMPLETE RIGHT BUNDLE BRANCH BLOCK, PRIOR 11/07/19 ATRIAL FLUTTER 12/12/[address] Gillis 1. Study is of acceptable technical quality, underlying sinus rhythm. 2. Normal LV size with severe left ventricular hypertrophy (LVH) and preserved LV systolic function. Grade 1 diastolic dysfunction. 3. Dilated right ventricle. 4. Biatrial enlargement. 5. No hemodynamically significant aortic and mitral valvular disease. 6. Moderate TR with very eccentric jet. Severe pulmonary hypertension (estimated pulmonary artery pressure at least 85 mmHg). 7. Elevated central venous pressure. 8. Suggestive of persistent left superior vena cava. 12/12/[address] cOhoa Interpretive Statements SINUS BRADYCARDIA INCOMPLETE RIGHT BUNDLE BRANCH BLOCK Borderline right axis deviation. No significant change compared with 12/11/2019. 12/14/[address] Ochao Interpretive Statements SINUS BRADYCARDIA RIGHT BUNDLE BRANCH BLOCK Indeterminate QRS axis PROGNOSIS: See Hospital Course. ACTIVITY: As tolerated. DIET: 1.5 L fluid restriction, and 2g sodium restriction DISCHARGE INSTRUCTIONS: 1. Followup with PCP for post-hospital checkup in 3-5d 2. See PCP in 2 weeks for stitches removal, around Dec 28 3. In 1week he can move freely and shower. Must pat dry completely. 4. Zyprexa reduced from 15mg to 7.5mg. ITEMS TO FOLLOWUP ON ON OUTPATIENT: 1. Bradycardia, followup with primary cardiology 2. R Bundle branch block, followup with primary manager nuclear 3. Stitches. Followup with PCP in 2w. Around Dec 28 DISCHARGE CONDITION: Stable. TIME SPENT ON DISCHARGE: Greater than 30 minutes. Vital Signs/I&Os Vital Signs Date Time Temp Pulse Resp B/P (MAP) Pulse Ox O2 Delivery O2 Flow Rate FiO2 12/15/19 08:00 3.0 12/15/19 08:00 97.8 61 18 140/63 (88) 92 Nasal Cannula I&O- Last 24 Hours up to 6 AM 12/15/19 06:00 Intake Total 1140 ml Output Total 0 ml Balance 1140 ml Laboratory Data Labs 24H Laboratory Tests 2 12/15/19 04:41: Immature Granulocyte % (Auto) 1.7, Neutrophils (%) (Auto) 78.7H, Lymphocytes (%) (Auto) 9.0L, Monocytes (%) (Auto) 9.5H, Eosinophils (%) (Auto) 0.6, Basophils (%) (Auto) 0.5, Neutrophils # (Auto) 6.2, Lymphocytes # (Auto) 0.7L, Monocytes # (Auto) 0.8, Eosinophils # (Auto) 0.1, Basophils # (Auto) 0.0, Nucleated Red Blood Cells % (auto) 0.0, Anion Gap 1L, Glomerular Filtration Rate > 60.0, Calcium Level 7.7L, Magnesium Level 2.1 CBC/BMP Laboratory Tests 12/15/19 04:41 Discharge Medications Scheduled Atorvastatin Calcium (Atorvastatin Calcium) 10 Mg Tablet, 10 MG PO QHS, (Reported) Ferrous Sulfate (Ferrous Sulfate) 325 Mg Tablet.dr, 325 MG PO DAILY, (Reported) Folic Acid (Folic Acid) 1 Mg Tablet, 1 MG PO DAILY, (Reported) Magnesium Oxide (Magnesium Oxide) 400 Mg Tablet, 400 MG PO DAILY, (Reported) Olanzapine (Olanzapine) 7.5 Mg Tablet, 7.5 MG PO QHS Sertraline Hcl (Sertraline HCl) 50 Mg Tablet, 50 MG PO DAILY, (Reported) Tamsulosin HCl (Flomax) 0.4 Mg Capsule, 0.4 MG PO DAILY, (Reported) Allergies Coded Allergies: No Known Allergies (Unverified , 10/31/18) GME ATTESTATION GME ATTESTATION My faculty preceptor for this patient encounter was physically present during the encounter and was fully available. All aspects of the patient interview, examination, medical decision making process, and medical care plan development were reviewed and approved by the faculty preceptor. The faculty preceptor is aware and concurs with the plan as stated in the body of this note and will attest to such by his/her cosignature. CHRISTIAN VANCE Dec 15, 2019 11:37
[2019-12-15] MEDS ORDERED: OLAN7.5T PO ×2 (11:54→15:15)
[2019-12-15 12:00] VITALS: BP 156/71
[2019-12-15] MEDS ORDERED: OLANZapine 2.5MG TABLET PO SCH (21:00)
== END 2019-12-15 16:41 | disposition home or self-care (01) | DRG 310 ==
LOC: EDBD 10:33 → M ED 10:33 → M ED INP 13:52 → ENRESERV 14:08 → M PCU 17:05
PROVIDERS: ADMIT Internal Medicine; ATTEND Internal Medicine
PROC: 0HQ1XZZ Repair Face Skin, External Approach (ICD-10-PCS; 2019-12-11)
PROC: 30233N1 Transfusion of Nonautologous Red Blood Cells into Peripheral Vein, Percutaneous Approach (ICD-10-PCS; principal; 2019-12-12)
DX: R00.1 Bradycardia, unspecified (principal); T46.2X5A Adverse effect of other antidysrhythmic drugs, initial encounter; W18.09XA Striking against other object with subsequent fall, initial encounter; I10 Essential (primary) hypertension; S01.81XA Laceration without foreign body of other part of head, initial encounter; F32.9 Major depressive disorder, single episode, unspecified; J44.9 Chronic obstructive pulmonary disease, unspecified; R60.0 Localized edema; R07.9 Chest pain, unspecified; D50.0 Iron deficiency anemia secondary to blood loss (chronic); Y92.003 Bedroom of unspecified non-institutional (private) residence as the place of occurrence of the external cause; Z66 Do not resuscitate; Z96.651 Presence of right artificial knee joint; Z87.891 Personal history of nicotine dependence; Z79.899 Other long term (current) drug therapy; Z85.118 Personal history of other malignant neoplasm of bronchus and lung

== ENCOUNTER 2021-01-13 14:26 | Inpatient (IN) | payer MEDICARE ==
[~2021-01-13] VITALS: Ht 167.6 cm; Wt 55.5 kg
[~2021-01-13 14:26] MED LIST changes: +ATEN25TA PO; +ATOR1TAB19 PO; -KLOR10TA76 PO; -LISI-538 PO; +LISI20TA33 PO; -MAG400TA PO; +MAGN400T35 PO; -OLAN15TA PO; +OLAN15TA13 PO; +OLAN7.5T8 PO; +POTA-136 PO
--- OUTSIDE RECORDS SUMMARY | 2021-01-13 14:32 | CCD ---
Author Author [facility] Organization [facility] Address Unknown Phone Unavailable Care Team Providers [employer] Conduit Installer Name Role Phone Dahlia David MD Unavailable Unavailable Dahlia David MD Unavailable Unavailable Dahlia David MD Unavailable Unavailable Dahlia David MD Unavailable Unavailable Dahlia David MD Unavailable Unavailable Dahlia David MD Unavailable Unavailable Dahlia David MD Unavailable Unavailable Dahlia David MD Unavailable Unavailable Dahlia David MD Unavailable Unavailable Dahlia David MD Unavailable Unavailable Dahlia David MD Unavailable Unavailable Dahlia David MD Unavailable Unavailable Dahlia David MD Unavailable Unavailable Dahlia David MD Unavailable Unavailable Dahlia David MD Unavailable Unavailable Dahlia David MD Unavailable Unavailable Dahlia David MD Unavailable Unavailable Dahlia David MD Unavailable Unavailable Dahlia David MD Unavailable Unavailable Dahlia David MD Unavailable Unavailable Dahlia David MD Unavailable Unavailable Dahlia Davdi MD Unavailable Unavailable Dahlia David MD Unavailable Unavailable Dahlia David MD Unavailable Unavailable Dahlia David MD Unavailable Unavailable Dahlia David MD Unavailable Unavailable Dahlia David MD Unavailable Unavailable Dahlia David MD Unavailable Unavailable Dahlia David MD Unavailable Unavailable Dahlia David MD Unavailable Unavailable Dahlia David MD Unavailable Unavailable Dahlia David MD Unavailable Unavailable Dahlia David MD Unavailable Unavailable Dahlia David MD Unavailable Unavailable Dahlia David MD Unavailable Unavailable Dahlia David MD Unavailable Unavailable Dahlia David MD Unavailable Unavailable Dahlia David MD Unavailable Unavailable Dahlia David MD Unavailable Unavailable Dahlia David MD Unavailable Unavailable Dahlia David MD Unavailable Unavailable Dahlia David MD Unavailable Unavailable Dahlia David MD Unavailable Unavailable Dahlia David MD Unavailable Unavailable Dahlia David MD Unavailable Unavailable Dahlia David MD Unavailable Unavailable Dahlia David MD Unavailable Unavailable Dahlia David MD Unavailable Unavailable Dahlia David MD Unavailable Unavailable Dahlia David MD Unavailable Unavailable Dahlia David MD Unavailable Unavailable Dahlia David MD Unavailable Unavailable Dahlia David MD Unavailable Unavailable Dahlia David MD Unavailable Unavailable Dahlia David MD Unavailable Unavailable Dahlia David MD Unavailable Unavailable Dahlia David MD Unavailable Unavailable Dahlia David MD Unavailable Unavailable Dahlia David MD Unavailable Unavailable Dahlia David MD Unavailable Unavailable Dahlia David MD Unavailable Unavailable Dahlia David MD Unavailable Unavailable Dahlia David MD Unavailable Unavailable Dahlia David MD Unavailable Unavailable Dahlia David MD Unavailable Unavailable Dahlia David MD Unavailable Unavailable Dahlia David MD Unavailable Unavailable Dahlia David MD Unavailable Unavailable Dahlia David MD Unavailable Unavailable Dahlia David MD Unavailable Unavailable Dahlia David MD Unavailable Unavailable Dahlia David MD Unavailable Unavailable Dahlia David MD Unavailable Unavailable Dahlia David MD Unavailable Unavailable Dahlia David MD Unavailable Unavailable Dahlia David MD Unavailable Unavailable Dahlia David MD Unavailable Unavailable Dahlia David MD Unavailable Unavailable Dahlia David MD Unavailable Unavailable Dahlia David MD Unavailable Unavailable Dahlia David MD Unavailable Unavailable Dahlia David MD Unavailable Unavailable Dahlia David MD Unavailable Unavailable Dahlia David MD Unavailable Unavailable Dahlia David MD Unavailable Unavailable Dahlia David MD Unavailable Unavailable Dahlia David MD Unavailable Unavailable Dahlia David MD Unavailable Unavailable Dahlia David MD Unavailable Unavailable Dahlia David MD Unavailable Unavailable David, Dahlia Talley MD Unavailable Unavailable David, Dahlia Talley MD Unavailable Unavailable David, Dahlia Talley MD Unavailable Unavailable Cachorro, Yumiko MOLDED FRAMES ASSEMBLER MOLDED FRAMES ASSEMBLER Unavailable Unavailable Cachorro, A Yumiko MOLDED FRAMES ASSEMBLER Unavailable Unavailable Cachorro, A Yumiko MOLDED FRAMES ASSEMBLER Unavailable Unavailable Cachorro, A Yumiko MOLDED FRAMES ASSEMBLER Unavailable Unavailable Cachorro, A Yumiko MOLDED FRAMES ASSEMBLER Unavailable Unavailable Cachorro, A Yumiko MOLDED FRAMES ASSEMBLER Unavailable Unavailable Cachorro, A Yumiko MOLDED FRAMES ASSEMBLER Unavailable Unavailable Cachorro, A Yumiko MOLDED FRAMES ASSEMBLER Unavailable Unavailable Cachorro, A Yumiko MOLDED FRAMES ASSEMBLER Unavailable Unavailable Cachorro, A Yumiko MOLDED FRAMES ASSEMBLER Unavailable Unavailable Cachorro, A Yumiko MOLDED FRAMES ASSEMBLER Unavailable Unavailable Cachorro, A Yumiko MOLDED FRAMES ASSEMBLER Unavailable Unavailable Cachorro, A Yumiko MOLDED FRAMES ASSEMBLER Unavailable Unavailable Cachorro, A Yumiko MOLDED FRAMES ASSEMBLER Unavailable Unavailable Cachorro, A Yumiko MOLDED FRAMES ASSEMBLER Unavailable Unavailable Cachorro, A Yumiko MOLDED FRAMES ASSEMBLER Unavailable Unavailable Cachorro, A Yumiko MOLDED FRAMES ASSEMBLER Unavailable Unavailable Cachorro, A Yumiko MOLDED FRAMES ASSEMBLER Unavailable Unavailable Cachorro, A Yumiko MOLDED FRAMES ASSEMBLER Unavailable Unavailable Cachorro, A Yumiko MOLDED FRAMES ASSEMBLER Unavailable Unavailable Cachorro, A Yumiko MOLDED FRAMES ASSEMBLER Unavailable Unavailable Cachorro, A Yumiok MOLDED FRAMES ASSEMBLER Unavailable Unavailable Cachorro, A Yumiko MOLDED FRAMES ASSEMBLER Unavailable Unavailable Cachorro, A Yumiko MOLDED FRAMES ASSEMBLER Unavailable Unavailable Cachorro, A Yumiko MOLDED FRAMES ASSEMBLER Unavailable Unavailable Cachorro, A Yumiko MOLDED FRAMES ASSEMBLER Unavailable Unavailable Cachorro, A Yumiko MOLDED FRAMES ASSEMBLER Unavailable Unavailable Cachorro, A Yumiko MOLDED FRAMES ASSEMBLER Unavailable Unavailable Cachorro, A Yumiko MOLDED FRAMES ASSEMBLER Unavailable Unavailable Cachorro, A Yumiko MOLDED FRAMES ASSEMBLER Unavailable Unavailable Cachorro, A Yumiko MOLDED FRAMES ASSEMBLER Unavailable Unavailable Cachorro, A Yumiko MOLDED FRAMES ASSEMBLER Unavailable Unavailable Re-disclosure Warning The records that you are about to access may contain information from federally-assisted alcohol or drug abuse programs. If such information is present, then the following federally mandated warning applies: This information has been disclosed to you from records protected by federal confidentiality rules (42 CFR part 2). The federal rules prohibit you from making any further disclosure of this information unless further disclosure is expressly permitted by the written consent of the person to whom it pertains or as otherwise permitted by 42 CFR part 2. A general authorization for the release of medical or other information is NOT sufficient for this purpose. The Federal rules restrict any use of the information to criminally investigate or prosecute any alcohol or drug abuse patient.The records that you are about to access may contain highly sensitive health information, the redisclosure of which is protected by Article 27-F of the [facility] Public Health law. If you continue you may have access to information: Regarding HIV / AIDS; Provided by facilities licensed or operated by the [facility] Office of Mental Health; or Provided by the [facility] Office for People With Developmental Disabilities. If such information is present, then the following [facility] mandated warning applies: This information has been disclosed to you from confidential records which are protected by state law. State law prohibits you from making any further disclosure of this information without the specific written consent of the person to whom it pertains, or as otherwise permitted by law. Any unauthorized further disclosure in violation of state law may result in a fine or mcfp sentence or both. A general authorization for the release of medical or other information is NOT sufficient authorization for further disc losure. Family History Family Member Name Family Member Gender Family Member Status Date o f Status Description Data Source(s) Unknown Unknown Problem [facility] ([facility]) Unknown Female Encounters Encounter Providers Location Date Indications Data Source(s ) Mayank David MD: [address] [place] [id number], Ph. Attender: Mayank David MD [facility] Medical 07/09/2020 12:00:00 AM EDT [place] ([facility]) Outpatient Attender: DANNY DELGADO 12/02/2019 03:09:01 P M EDT [facility] Outpatient Attender: Yumiko DELGADO 12/02/2019 03:0 9:00 PM EDT [facility] Outpatient Attender: Yumiko DELGADO 11/18/2019 07:0 3:03 PM EDT [facility] Outpatient Attender: DANNY DEL ROSARIO 11/18/2019 07:03:02 P M EDT [facility] Outpatient Attender: DANNY DEL ROSARIO 11/17/2019 07:48:03 A M EDT [facility] Outpatient Attender: Yumiko DEL ROSARIO 11/17/2019 07:4 8:01 AM EDT [facility] Outpatient Attender: DANNY DEL ROSARIO 11/15/2019 02:28:00 P M EDT [facility] Outpatient Attender: DANNY Cachorro DANNY FP 11/14/2019 04:10:01 P M EDT [facility] Immunizations Vaccine Date Status Description Data Source(s) COVID-19 VACCINE Moderna 05/15/2020 12:00:00 AM EDT completed [facility] Vaccine Series Complete: YESThis Data wa s Submitted to [facility]. COVID-19 VACCINE Moderna 04/17/2020 12:00:00 AM EST completed [facility] Vaccine Series Complete: NOThis Data was Submitted to [facility]. Medications Medication Brand Name Start Date Product Form Dose Route Admi nistrative Instructions Pharmacy Instructions Status Indications Reaction Description Data Source(s) ferrous sulfate 325 MG Delayed Release O ral Tablet ferrous sulfate 325 mg (65 mg iron) tablet,delayed release Take 1 tablet every day by oral route. ferrous sulfate 325 mg (65 mg iron) tablet,delayed release Take 1 tablet every day by oral route. 1 completed fe rrous sulfate 325 MG Delayed Release Oral Tablet [place] ([facility]) Levetiracetam 500 MG Oral Tablet levetiracetam 500 mg tablet levetiracetam 500 mg tablet completed levetiraceta m 500 MG Oral Tablet [place] ([facility]) Atenolol 25 MG Oral Tablet atenolol 25 m g tablet TAKE ONE TABLET BY MOUTH TWICE A DAY atenolol 25 mg tablet TAKE ONE TABLET BY MOUTH TWICE A DAY completed atenolol 25 MG Oral Tablet [facility] ([facility]) olanzapine 15 MG Oral Tablet olanzapine 15 mg tablet olanzapine 15 mg tablet completed olanzapine 15 MG Oral Tablet [place] ([facility]) Atenolol 50 MG Oral Tablet atenolol 50 mg tablet atenolol 50 mg tablet completed atenolol 50 MG Oral Table t [place] ([facility]) torsemide 10 MG Oral Tablet torsemide 10 mg tablet torsemide 10 mg ta blet completed torsemide 10 MG Oral Tablet [place] ([facility]) Amiodarone hydrochloride 200 MG Oral Tablet amiodarone 200 mg tablet amiodarone 200 mg tablet completed amiodarone hydrochloride 200 MG Oral [facility]t [facility] Klor-Con M10 mEq tablet,extended release TAKE 1 TABLET BY MOUTH ONCE DAILY [id number] completed Microen capsulated potassium chloride 10 MEQ Extended Release Oral Tablet [Klor-Con] [place] ([facility]) Digoxin 0.125 MG Oral Tablet digoxin 125 mcg (0.125 mg ) tablet digoxin 125 mcg (0.125 mg) tablet completed digo yessy 0.125 MG Oral Tablet [place] ([facility]) Thera-M 9 mg iron-400 mcg tablet TAKE ON E TABLET BY MOUTH EVERY DAY FOR SUPPLEMENT [id number] completed Ther a-M 9 mg iron-400 mcg tablet [place] ([facility]) Lisinopril 20 MG Oral Tablet lisinopril 20 mg tablet lisinopril 20 mg tablet completed lisinopril 20 MG Oral Tablet [place] ([facility]) Fluticasone propionate 0.5 MG/ACTUAT / s almeterol 0.05 MG/ACTUAT Dry Powder Inhaler fluticasone 500 mcg-salmeterol 50 mcg/dose blistr powdr for inhalation fluticasone 500 mcg-salmeterol 50 mcg/dose blistr powdr for inhalation completed fluticasone pro pionate 0.5 MG/ACTUAT / salmeterol 0.05 MG/ACTUAT Dry Powder Inhaler [place] ([facility]) Tamsulosin hydrochloride 0.4 MG Oral Cap kimberly tamsulosin 0.4 mg capsule Take 1 capsule every day by oral route. tamsulosin 0.4 mg capsule Take 1 capsule every day by oral route. 1 capsule(s) completed tamsulosin hydrochloride 0.4 MG Oral Capsule [place] ([facility]) Folic Acid 1 MG Oral Tablet folic acid 1 mg tablet Take 1 tablet every day by oral route. folic acid 1 mg tablet Take 1 tablet every day by oral route. 1 completed folic acid 1 MG Oral Tablet [place] ([facility]) Levalbuterol 0.417 MG/ML Inhalant Soluti on levalbuterol 1.25 mg/3 mL solution for nebulization levalbuterol 1.25 mg/3 mL solution for nebulization completed levalbuterol 0.417 MG/ML Inh alation Solution [place] ([facility]) tiotropium 0.018 MG/ACTUAT Inhalant Powd er [Spiriva] Spiriva with HandiHaler 18 mcg and inhalation capsules INHALE 1 PUFF BY MOUTH ONCE DAILY Spiriva with HandiHaler 18 mcg and inhalation capsules INHALE 1 PUFF BY MOUTH ONCE DAILY completed tiotropium 0.018 MG In halation Powder [Spiriva] [place] ([facility]) Furosemide 20 MG Oral Tablet furosemide 20 mg tablet furosemide 20 mg tablet completed furosemide 20 MG Oral Tablet [place] ([facility]) 24 HR metoprolol succinate 25 MG Extende d Release Oral Tablet metoprolol succinate ER 25 mg tablet,extended release 24 hr metoprolol succinate ER 25 mg tablet,extended release 24 hr complete d 24 HR metoprolol succinate 25 MG Extended Release Oral Tablet [place] ([facility]) pantoprazole 40 MG Delayed Release Oral Tablet pantoprazole 40 mg tablet,delayed release pantoprazole 40 mg tablet,delayed release completed pantoprazole 40 MG Delayed Release Oral Tablet [place] ([facility]) benzonatate 100 MG Oral Capsule benzonat ate 100 mg capsule TAKE TWO CAPSULES BY MOUTH THREE TIMES A DAY NEEDED FOR COUGH benzonatate 100 mg capsule TAKE TWO CAPSULES BY MOUTH THREE TIMES A DAY NEEDED FOR COUGH completed benzonatate 100 MG Oral Capsule [place] ([facility]) cefprozil 500 MG Oral Tablet cefprozil 500 mg tablet cefprozil 5 00 mg tablet completed cefprozil 500 MG Oral Tablet [place] ([facility]) atorvastatin 20 MG Oral Tablet atorvastatin 20 mg tabl et atorvastatin 20 mg tablet completed atorvastatin 20 MG Oral Tablet [place] ([facility]) 200 ACTUAT Levalbuterol 0.045 MG/ACTUAT Metered Dose Inhaler levalbuterol HFA 45 mcg/actuation aerosol inhaler levalbuterol HFA 45 mcg/actuation aeroso l inhaler completed 200 ACT UAT levalbuterol 0.045 MG/ACTUAT Metered Dose Inhaler [facility] er) atorvastatin 10 MG Oral Tablet atorvasta tin 10 mg tablet Take 1 tablet every day by oral route at bedtime. atorvastatin 10 mg tablet Take 1 tablet every day by oral route at bedtime. 1 completed atorvastatin 10 MG Oral Tablet [place] ([facility]) Levetiracetam 250 MG Oral Tablet levetiracetam 250 mg tablet levetiracetam 250 mg tablet completed levetiraceta m 250 MG Oral Tablet [place] ([facility]) Magnesium Oxide 400 MG Oral Tablet magne sium oxide 400 mg (241.3 mg magnesium) tablet Take 1 tablet every day by oral route. magnesium oxide 400 mg (241.3 mg magnesium) tablet Take 1 tablet every day by oral route. 1 completed magnesium oxide 400 MG Oral Tablet [facility] [facility] ([facility]) Levofloxacin 750 MG Oral Tablet levofloxacin 750 mg ta blet levofloxacin 750 mg tablet completed levofloxacin 75 0 MG Oral Tablet [place] ([facility]) Levothyroxine Sodium 0.05 MG Oral Tablet levothyroxine 50 mcg tablet levothyroxine 50 mcg tablet completed levothyroxine sodium 0.05 MG Oral Tablet [place] ([facility]) Sucralfate 1000 MG Oral Tablet sucralfate 1 gram table t sucralfate 1 gram tablet completed sucralfate 1000 MG Oral Tablet [place] ([facility]) Prednisone 10 MG Oral Tablet prednisone 10 mg tablet prednisone 10 mg tablet completed prednisone 10 MG Oral Tablet [place] ([facility]) Insurance Providers Payer name Policy type / Coverage type Policy ID Covered republican ID Covered republican's relationship to voss Policy Voss Plan Information MEDICARE A [id number] Self [id number] A MEDICARE COMPLETE [id number] SP [id number] MEDICARE BLUE PPO [id number] SP [id number] MEDICARE [id number] SP [id number] A MEDICARE A [id number] Self [id number] A Medicare P [id number] S [id number] A Medicare P [id number] S [id number] A Medicare S [id number] S [id number] A [employer] MEDICARE BLUE PPO G [id number] Self [id number] MEDICARE BLUE PPO [id number] SP [id number] MEDICARE BLUE PPO 306 [id number] SP [id number] Medicare Medicare Primary [id number] Self Medicare P [id number] S [id number] MEDICARE -O/P [id number] 18 [id number] MEDICARE [id number] SP [id number] [employer] BCBS Medicare Advantage P [id number] S [id number] Medicare S [id number] S [id number] A BLUE CROSS BLUE SHIELD MCR -OP [id number] 18 [id number] [employer] BCBS B [id number] S [id number] [id number] BLUE CROSS BLUE SHIELD MCR -PROFEE [id number] 18 [id number] MEDICARE [id number] SP [id number] A [employer] BCBS B [id number] S VYM [id number] [employer] BCYO P [id number] S VYM [id number] BS Medicare Ppo Commercial [id number] Self MEDICARE C [id number] S [id number] A Problems, Conditions, and Diagnoses Code Display Name Description Problem Type Effective Dates Data Source(s) 475875265 SNOMED CT Concept SNOMED CT Concept Problem 11/29 04:44:04 PM EDT [place] ([facility]) [id number] Hypertensive disorder Hypertensive Disorder Problem 11/30/2019 04:44:04 PM EDT [place] ([facility]) [id number] Depressive disorder Depressive Disorder Problem 1 04:44:04 PM EDT [place] ([facility]) I26.09 Other pulmonary embolism with acute cor pulmonale Other pulmonary embolism with acute cor pulmonale 11/17/2019 07:47:28 AM EDT [facility] [id number] Acute embolism and thrombosis of unspeci fied calf muscular vein Acute embolism and thrombosis of unspecified calf muscular vein 11/17/2019 07:47:28 AM EDT [facility] C20 Malignant neoplasm of rectum Malignant tumor of rectum 11/17/2019 07:47:28 AM EDT [facility] [id number] Embolism from thrombosis of vein of dist al lower extremity Embolism from Thrombosis of Vein of Distal Lower Extremity Problem 02/2019 12:00:00 AM EDT [place] ([facility]) [id number] Acute deep vein thrombosis of lower limb Acute Deep Vein Thrombosis of Lower Limb Problem 11/16/2019 12:00:00 AM EDT [place] ([facility]) [id number] Acute cor pulmonale Acute Cor Pulmonale Problem 1 12:00:00 AM EDT [place] ([facility]) [id number] Malignant tumor of rectum Malignant Tumor of Rectum Pr oblem 11/16/2019 12:00:00 AM EDT [place] ([facility]) Surgeries/Procedures No Information Results ID Date Data Source [id number] 12/15/2019 04:41:00 AM EDT [place] ([facility]) Name Value Range Interpretation Code Description Data Faith rce(s) Supporting Document(s) magnesium level 2.1 mg/dL 1.8-2.4 Magnesium Level [facility] ([facility]) ID Date Data Source [id number] 12/15/2019 04:41:00 AM EDT [place] ([facility]) Name Value Range Interpretation Code Description Data Faith rce(s) Supporting Document(s) glucose, fasting 89 mg/dL 70-100 Glucose, Fasting AT [facility] ([facility]) creatinine for GFR 0.81 mg/dL 0.70-1.30 Creatinine for GF R [place] ([facility]) blood urea nitrogen 18 mg/dL 7-18 Blood Urea Nitro gen [place] ([facility]) glomerular filtration rate > 60.0 >42 Glomerula r Filtration Rate [place] ([facility]) sodium level 143 mEq/L 136-145 Sodium Level [place] ([facility]) potassium serum 4.3 mEq/L 3.5-5.1 Potassium Serum [facility] NA ([facility]) carbon dioxide level 41 mEq/L 21-32 Above high normal Carbon D ioxide Level [place] ([facility]) chloride level 101 mEq/L 98-107 Chloride Level [place] ([facility]) anion gap 1 mEq/L 8-16 Below low normal Anion Gap [place] ( [facility]) calcium level 7.7 mg/dL 8.8-10.2 Below low normal Calcium Level AT [facility]) ID Date Data Source [id number] 12/15/2019 04:41:00 AM EDT [place] ([facility]) Name Value Range Interpretation Code Description Data Faith rce(s) Supporting Document(s) white blood count 7.9 10 4.0-10.0 White Blood Count [place] ([facility]) red blood count 2.92 10 4.30-6.10 Below low normal Red Blood Coun t [place] ([facility]) hemoglobin 8.6 g/dL 13.5-17.5 Below low normal Hemoglobin [place] ( [facility]) hematocrit 30.0 % 42.0-52.0 Below low normal Hematocrit [place] ( [facility]) mean corpuscular volume 102.7 fL 80.0-96.0 Above high normal Mean Corpuscular Volume [place] ([facility]) mean corpuscular hemoglobin 29.5 pg 27.0-33.0 Mean Cor puscular Hemoglobin [place] ([facility]) mean corpuscular HGB conc 28.7 g/dL 32.0-36.5 Below low chinmay l Mean Corpuscular HGB Conc [place] ([facility]) red cell distribution width 16.4 % 11.5-14.5 Above high no rmal Red Cell Distribution Width [place] ([facility]) platelet count, automated 178 10 150-450 Platelet C ount, Automated [place] ([facility]) neutrophils % 78.7 % 36.0-66.0 Above high normal Neutrophils % [facility] [place] ([facility]) lymph % 9.0 % 24.0-44.0 Below low normal Lymph % [place] ( [facility]) eos % 0.6 % 0.0-3.0 Eos % [place] ([facility]) mono % 9.5 % 0.0-5.0 Above high normal Adams % [place] ([facility]) baso % 0.5 % 0.0-1.0 Baso % [place] ([facility]) nucleated red blood cell % 0.0 % 0-0 Nucleated Red Blood Cell % [place] ([facility]) immature granulocyte % 1.7 % 0-3.0 Immature Gran ulocyte % [place] ([facility]) neutrophils # 6.2 10 1.5-8.5 Neutrophils # [place] ( [facility]) lymph # 0.7 10 1.5-5.0 Below low normal Lymph # [place] ( [facility]) mono # 0.8 10 0.0-0.8 Adams # [place] ([facility]) eos # 0.1 10 0.0-0.5 Eos # [place] ([facility]) baso # 0.0 10 0.0-0.2 Baso # [place] ([facility]) ID Date Data Source [id number] 12/14/2019 05:00:00 AM EDT [facility]) Name Value Range Interpretation Code Description Data Faith rce(s) Supporting Document(s) magnesium level 2.0 mg/dL 1.8-2.4 [facility] ID Date Data Source [id number] 12/14/2019 05:00:00 AM EDT [facility]) Name Value Range Interpretation Code Description Data Faith rce(s) Supporting Document(s) glucose, fasting 76 mg/dL 70-100 Glucose, Fasting AT [facility]) blood urea nitrogen 17 mg/dL 7-18 Blood Urea Nitro gen [place] ([facility]) creatinine for GFR 0.74 mg/dL 0.70-1.30 Creatinine for GF R [place] ([facility]) glomerular filtration rate > 60.0 >42 Glomerula r Filtration Rate [place] ([facility]) sodium level 143 mEq/L 136-145 Sodium Level [place] ([facility]) potassium serum 4.5 mEq/L 3.5-5.1 Potassium Serum [place] ([facility]) chloride level 102 mEq/L 98-107 Chloride Level [place] ([facility]) anion gap 0 mEq/L 8-16 Below low normal Anion Gap [place] [facility]) carbon dioxide level 41 mEq/L 21-32 Above high normal Carbon D ioxide Level [place] ([facility]) calcium level 7.7 mg/dL 8.8-10.2 Below low normal Calcium Level AT [facility]) ID Date Data Source [id number] 12/14/2019 05:00:00 AM EDT [place] ([facility]) Name Value Range Interpretation Code Description Data Faith rce(s) Supporting Document(s) white blood count 9.8 10 4.0-10.0 White Blood Count [place] ([facility]) red blood count 3.06 10 4.30-6.10 Below low normal Red Blood Coun t [place] ([facility]) hemoglobin 9.0 g/dL 13.5-17.5 Below low normal Hemoglobin [place] ( [facility]) mean corpuscular volume 101.0 fL 80.0-96.0 Above high normal Mean Corpuscular Volume [place] ([facility]) hematocrit 30.9 % 42.0-52.0 Below low normal Hematocrit [place] ( [facility]) mean corpuscular hemoglobin 29.4 pg 27.0-33.0 Mean Cor puscular Hemoglobin [place] ([facility]) mean corpuscular HGB conc 29.1 g/dL 32.0-36.5 Below low chinmay l Mean Corpuscular HGB Conc [place] ([facility]) red cell distribution width 16.6 % 11.5-14.5 Above high no rmal Red Cell Distribution Width [place] ([facility]) neutrophils % 84.2 % 36.0-66.0 Above high normal Neutrophils % [place] ([facility]) platelet count, automated 173 10 150-450 Platelet C ount, Automated [place] ([facility]) lymph % 5.4 % 24.0-44.0 Below low normal Lymph % [place] ( [facility]) eos % 0.3 % 0.0-3.0 Eos % [place] ([facility]) mono % 8.7 % 0.0-5.0 Above high normal [place] % [place] ([facility]) immature granulocyte % 1.2 % 0-3.0 Immature Gran ulocyte % [place] ([facility]) baso % 0.2 % 0.0-1.0 Baso % [place] ([facility]) neutrophils # 8.2 10 1.5-8.5 Neutrophils # [place] ( [facility]) nucleated red blood cell % 0.0 % 0-0 Nucleated Red Blood Cell % [place] ([facility]) mono # 0.9 10 0.0-0.8 Above high normal Adams # [place] ([facility]) lymph # 0.5 10 1.5-5.0 Below low normal Lymph # [place] ( [facility]) eos # 0.0 10 0.0-0.5 Eos # [place] ([facility]) baso # 0.0 10 0.0-0.2 Baso # [place] ([facility]) ID Date Data Source [id number] 12/12/2019 04:06:00 PM EDT [place] ([facility]) Name Value Range Interpretation Code Description Data Faith rce(s) Supporting Document(s) white blood count 10.9 10 4.0-10.0 Above high normal White Blood Count [place] ([facility]) red blood count 2.96 10 4.30-6.10 Below low normal Red Blood Coun t [place] ([facility]) hemoglobin 8.8 g/dL 13.5-17.5 Below low normal Hemoglobin [place] ( [facility]) hematocrit 30.2 % 42.0-52.0 Below low normal Hematocrit [place] ( [facility]) mean corpuscular hemoglobin 29.7 pg 27.0-33.0 Mean Cor puscular Hemoglobin [place] ([facility]) mean corpuscular volume 102.0 fL 80.0-96.0 Above high normal Mean Corpuscular Volume [place] ([facility]) red cell distribution width 17.8 % 11.5-14.5 Above high no rmal Red Cell Distribution Width [place] ([facility]) mean corpuscular HGB conc 29.1 g/dL 32.0-36.5 Below low chinmay l Mean Corpuscular HGB Conc [place] ([facility]) nucleated red blood cell % 0.0 % 0-0 Nucleated Red Blood Cell % [place] ([facility]) platelet count, automated 166 10 150-450 Platelet C ount, Automated [place] ([facility]) ID Date Data Source [id number] 12/12/2019 05:33:00 AM EDT [place] ([facility]) Name Value Range Interpretation Code Description Data Faith rce(s) Supporting Document(s) white blood count 11.2 10 4.0-10.0 Above high normal White Blood Count [place] ([facility]) red blood count 2.32 10 4.30-6.10 Below low normal Red Blood Coun t [place] ([facility]) hematocrit 24.3 % 42.0-52.0 Below low normal Hematocrit [place] ( [facility]) hemoglobin 6.8 g/dL 13.5-17.5 Below low normal Hemoglobin [place] ( [facility]) mean corpuscular volume 104.7 fL 80.0-96.0 Above high normal Mean Corpuscular Volume [place] ([facility]) mean corpuscular hemoglobin 29.3 pg 27.0-33.0 Mean Cor puscular Hemoglobin [place] ([facility]) mean corpuscular HGB conc 28.0 g/dL 32.0-36.5 Below low chinmay l Mean Corpuscular HGB Conc [place] ([facility]) red cell distribution width 16.9 % 11.5-14.5 Above high no rmal Red Cell Distribution Width [place] ([facility]) platelet count, automated 198 10 150-450 Platelet C ount, Automated [place] ([facility]) nucleated red blood cell % 0.0 % 0-0 Nucleated Red Blood Cell % [place] ([facility]) ID Date Data Source [id number] 12/12/2019 05:32:00 AM EDT [place] ([facility]) Name Value Range Interpretation Code Description Data Faith rce(s) Supporting Document(s) magnesium level 2.0 mg/dL 1.8-2.4 Magnesium Level [facility] ID Date Data Source [id number] 12/12/2019 05:32:00 AM EDT [place] ([facility]) Name Value Range Interpretation Code Description Data Faith rce(s) Supporting Document(s) glucose, fasting 98 mg/dL 70-100 Glucose, Fasting AT [facility]) blood urea nitrogen 21 mg/dL 7-18 Above high normal Blood Ure a Nitrogen [place] ([facility]) creatinine for GFR 1.03 mg/dL 0.70-1.30 Creatinine for GF R [place] ([facility]) glomerular filtration rate > 60.0 >42 Glomerula r Filtration Rate [place] ([facility]) sodium level 143 mEq/L 136-145 Sodium Level [place] ([facility]) chloride level 101 mEq/L 98-107 Chloride Level [place] ([facility]) potassium serum 4.6 mEq/L 3.5-5.1 Potassium Serum [facility] carbon dioxide level 42 mEq/L 21-32 Above high normal Carbon D ioxide Level [place] ([facility]) anion gap 0 mEq/L 8-16 Below low normal Anion Gap [place] ( [facility]) calcium level 7.8 mg/dL 8.8-10.2 Below low normal Calcium Level AT [facility]) ID Date Data Source [id number] 12/11/2019 06:42:00 PM EDT [facility]) Name Value Range Interpretation Code Description Data Faith rce(s) Supporting Document(s) CPK creatine phosphokinase 29 U/L 39-308 Below low norm al CPK Creatine Phosphokinase [place] ([facility]) mb/CK relative index < or =4 Above high normal mb/CK Re lative Index [place] ([facility]) troponin I < 0.02 < 0.10 Troponin I [place] ([facility]) CK-mb value mass 2.8 NG/mL <3.6 CK-mb Value Mass AT [facility]) ID Date Data Source [id number] 12/11/2019 10:56:00 AM EDT [facility]) Name Value Range Interpretation Code Description Data Faith rce(s) Supporting Document(s) thyroid stimulating hormone 6.510 uIU/mL 0.358-3.740 Above high no rmal Thyroid Stimulating Hormone [facility]) ID Date Data Source [id number] 12/11/2019 10:56:00 AM EDT [facility]) Name Value Range Interpretation Code Description Data Faith rce(s) Supporting Document(s) digoxin level 0.4 NG/mL 0.5-2.0 Below low normal Digoxin Level AT [facility]) ID Date Data Source [id number] 12/11/2019 10:56:00 AM EDT [facility]) Name Value Range Interpretation Code Description Data Faith rce(s) Supporting Document(s) glucose, fasting 86 mg/dL 70-100 Glucose, Fasting AT [facility]) blood urea nitrogen 18 mg/dL 7-18 Blood Urea Nitro gen [place] ([facility]) glomerular filtration rate > 60.0 >42 Glomerula r Filtration Rate [place] ([facility]) creatinine for GFR 1.02 mg/dL 0.70-1.30 Creatinine for GF R [place] ([facility]) sodium level 143 mEq/L 136-145 Sodium Level [place] ([facility]) potassium serum 4.5 mEq/L 3.5-5.1 Potassium Serum [facility] NA [facility]) carbon dioxide level 43 mEq/L 21-32 Above high normal Carbon D ioxide Level [facility]) chloride level 101 mEq/L 98-107 Chloride Level [facility]) calcium level 8.1 mg/dL 8.8-10.2 Below low normal Calcium Level AT [facility] ([facility]) ID Date Data Source [id number] 12/11/2019 10:56:00 AM EDT [place] ([facility]) Name Value Range Interpretation Code Description Data Faith rce(s) Supporting Document(s) white blood count 10.0 10 4.0-10.0 White Blood Count [place] ([facility]) hemoglobin 8.8 g/dL 13.5-17.5 Below low normal Hemoglobin [place] ( [facility]) red blood count 2.99 10 4.30-6.10 Below low normal Red Blood Coun t [place] ([facility]) mean corpuscular volume 105.4 fL 80.0-96.0 Above high normal Mean Corpuscular Volume [place] ([facility]) hematocrit 31.5 % 42.0-52.0 Below low normal Hematocrit [place] ( [facility]) mean corpuscular HGB conc 27.9 g/dL 32.0-36.5 Below low chinmay l Mean Corpuscular HGB Conc [place] ([facility]) mean corpuscular hemoglobin 29.4 pg 27.0-33.0 Mean Cor puscular Hemoglobin [place] ([facility]) platelet count, automated 229 10 150-450 Platelet C ount, Automated [place] ([facility]) red cell distribution width 17.2 % 11.5-14.5 Above high no rmal Red Cell Distribution Width [place] ([facility]) lymph % 5.4 % 24.0-44.0 Below low normal Lymph % [place] ( [facility]) neutrophils % 87.2 % 36.0-66.0 Above high normal Neutrophils % [place] ([facility]) eos % 0.3 % 0.0-3.0 Eos % [place] ([facility]) mono % 5.8 % 0.0-5.0 Above high normal [place] % [place] ([facility]) baso % 0.5 % 0.0-1.0 Baso % [place] ([facility]) nucleated red blood cell % 0.0 % 0-0 Nucleated Red Blood Cell % [place] ([facility]) immature granulocyte % 0.8 % 0-3.0 Immature Gran ulocyte % [place] ([facility]) neutrophils # 8.7 10 1.5-8.5 Above high normal Neutrophils # [place] ([facility]) lymph # 0.5 10 1.5-5.0 Below low normal Lymph # [place] ( [facility]) mono # 0.6 10 0.0-0.8 [place] # [place] ([facility]) eos # 0.0 10 0.0-0.5 Eos # [place] ([facility]) baso # 0.1 10 0.0-0.2 Baso # [place] ([facility]) ID Date Data Source [id number] 12/11/2019 10:55:00 AM EDT [place] ([facility]) Name Value Range Interpretation Code Description Data Faith rce(s) Supporting Document(s) packed cells transfused product: packed cells count: 2 Packed Cells [place] ([facility]) ID Date Data Source [id number] 12/11/2019 10:55:00 AM EDT [facility]) Name Value Range Interpretation Code Description Data Faith rce(s) Supporting Document(s) Ab screen (indirect alfreda)vis negative Ab Sc reen (Indirect Alfreda)vis [place] ([facility]) blood type O positive Blood Type [place] ([facility]) ID Date Data Source [id number] 11/16/2019 11:29:46 AM EDT [facility] Intake Information From: patient Infectious Disease / Travel ScreeningRecent travel for you or any close contacts? NoHave you had any close contact with anyone diagnosed with or under investigation for COVID-19 (coronavirus)? NoFever? NoRespiratory symptoms: cough, cold, congestion, shortness of breath, difficulty breathing? NoLoss of smell? NoLoss of taste? NoSmoking, Tobacco, Vaping or Smoke Exposure StatusSmoke Status: current every day smokerTobacco Use: YesAdv to Quit: YesDo you vape? NoHealthcare HistorySince your last office visit...Have you been admitted to the hospital? Yes - [facility] Have you been to an emergency room (ER) or urgent care clinic? No - [facility] Emergency room (ER) or urgent care date reported today: 08/24/2019Have you seen another healthcare provider? Yes - ONCOLOGYHave you seen a dentist? No - dentures Intake performed by: Carley Arriaza MA, November 16, 2019 11:31 AMRate Your HealthIn general, would you say your health is? PoorPain AssessmentAre you currently having any pain which... You would like your provider to address? No Affects your activity level? NoDepression Screening - PHQ-2Over the last two weeks, have you... Had little interest or pleasure in doing things? Not at all Been feeling down, depressed, or hopeless? Not at all PHQ-2 Score: 0Anxiety Screening - CLIF-2Over the last two weeks, have you been... Feeling nervous, anxious, or on edge? Not at all Unable to stop or control worrying? Not at all CLIF-2 Score: 0Screening, Brief Intervention, & Referral to Treatment (SBIRT)Pre-Screening Questions How many times have you have 5 or more drinks in a day? 0How many times have you used an illegal drug or used a prescription medication for a non-medical reason? 0Performed by: Carley Arriaza MA, November 16, 2019 11:31 AMPatient History Medical History:Anxiety DisorderDepressionHypertensionCHFcolon cancerblood clots in his lungsSurgical History:left shoulder 1975rt. leg 1981Family History:FH HypertensionFH High CholesterolFamily History Coronary Heart Disease male < 55FH HeadachesFH Psychiatric CareSocial/Personal History:Smoking History:Patient currently smokes every day.Patient has been counseled to quit. Advised to Quit/Tobacco Education: YesChief ComplaintHD SMCHistory of Present Illness (HPI)This visit was conducted via telephone. Mayank David MD has received verbal consent from the patient/guardian to conduct this visit via telehealth. The patient has been made aware that they have the right to refuse telehealth; of my location and the security of the telehealth software; any other parties present in the session; and that they have a right to select another provider if chosen for a face to face visit.Recent hospital visit for fall and rib injury. Also issues with recently diagnosed DVT/PE. Anticoagulation not an option due to rectal bleeding. Declined IVC filter. Also with rectal cancer that has been deemed inoperable. Exploring possible chemo and radiation options. It sounds as if he is leaning away from aggresive treatment.Lives alone. Gets helps from his daughter who lives next door.Has Home Health coming in but they are insistent on calling the ambulance every time his O2 sat is low and it is usually low each time they check. The patient and his daughter are frustrated by this.He has declined Hospice. His daughter is concerned about his eligibility if he lives alone. I think that as long as he has some family support that he qualifies.HPI performed by: Mayank David MD, November 16, 2019 11:37 AMTransitions of Care InboundProblem ReviewProblem List was reviewed and/or updated during this visit.Medication Reconciliation & ReviewMedication List was reviewed and/or updated during this visit, including review of any [id number] medications, herbal therapies, and/or supplements.Allergy ReviewAllergy List was reviewed and/or updated during this visit.Adult Preventive CareProvider Calculated and Reviewed all Clinical Protocols for patient today. Screening Tobacco Screening: Smoking Status: current every day smoker (11/16/2019) Tobacco Use: Currently (11/16/2019) Advised to Quit: Yes (11/16/2019)Review of Systems General: Complains of dizziness. Denies headache. Cardiovascular: Complains of chest pain. Denies palpitations, feeling faint. Respiratory: Denies difficulty breathing, shortness of breath. Gastrointestinal: Complains of blood in stool. Genitourinary: Denies burning with urination, urinary frequency, urinary urgency. Care Management Plan Transitions of CareInboundRate Your HealthIn general, would you say your health is? PoorAssessment & Plan Problems:Added: Acute embolism and thrombosis of unspecified calf muscular vein (ICD10- I82.469)Other pulmonary embolism with acute cor pulmonale (ZMR37-B16.09) Assessment: Instructions: Tretament of this complicated by bleeding from rectal cancer and his reluctance to get an IVC filter.We will talk with Home Health and discuss that he is more of a comfort care patient at this point so we can discuss changing parameters for checking and responding to O2 sat.Recheck here as needed.Malignant tumor of rectum (ICD-154.8) ([id number]) Assessment: Instructions: Inopreable and epxloring other treatment options althoughh talk ing with him and his daughter today they are not sure how aggresive they want to be with this.I think that Hospice is a good option and we will explore this. I think that Hospice is able to work with a client as long as there is family support and his daughter who is a health group care worker herself is willing to take this role. She will bring in [facility] paperwork for me to fiill out.10 minutes spent on phone.Patient Instructions/Care Plan: Other pulmonary embolism with acute cor pulmonale: Tretament of this complicated by bleeding from rectal cancer and his reluctance to get an IVC filter.We will talk with Home Health and discuss that he is more of a comfort care patient at this point so we can discuss changing parameters for checking and responding to O2 sat.Recheck here as needed.Malignant tumor of rectum: Inopreable and epxloring other treatment options althoughh talking with him and his daughter today they are not sure how aggresive they want to be with this.I think that Hospice is a good option and we will explore this. I think that Hospice is able to work with a client as long as there is family support and his daughter who is a health group care worker herself is willing to take this role. She will bring in [employer] paperwork for me to fiill out.10 minutes spent on phone. Plan developed in collaboration with patient and/or familyMedications:ATORVASTATIN CALCIUM 20 MG ORAL TABLETLIP ITOR 20 MG ORAL TABLETSPIRIVA HANDIHALER 18 MCG INHALATION CAPSULEFLOMAX 0.4 MG ORAL CAPSULESUCRALFATE 1 GM ORAL TABLETIRON HIGH-POTENCY 325 MG ORAL TABLETPANTOPRAZOLE SODIUM 40 MG ORAL TABLET DELAYED RELEASEMAGNESIUM OXIDE 400 MG ORAL TABLETLEVETIRACETAM 250 MG ORAL TABLETXOPENEX HFA 45 MCG/ACT INHALATION AEROSOLFOLIC ACID 1 MG ORAL TABLETOLANZAPINE 15 MG ORAL TABLETALBUTEROL SULFATE (2.5 MG/3ML) 0.083% INHALATION NEBULIZATION SOLUTIONBENZONATATE 100 MG ORAL CAPSULEATENOLOL 50 MG ORAL TABLETPREDNISONE 10 MG ORAL TABLETNEBULIZERHOME OXYGENSERTRALINE HCL 50 MG ORAL TABLETMedication Changes:Added: ATORVASTATIN CALCIUM 20 MG ORAL TABLET-one tab at bedtimeRemoved:LEVAQUIN 750 MG ORAL TABLET- by mouth daily, COLACE 100 MG ORAL CAPSULE-ont cap by mouth twice a day for 10 days, THERANATAL CORE NUTRITION TABLET-1 tab PO dailyAllergies:* WOOL ( (Critical)Orders:Telephone E&M 5-10 min Medical Discussion [[id number]] Name Value Range Interpretation Code Description Data Faith rce(s) Supporting Document(s) Procedure Social History No Information Vital Signs ID Date Data Source UNK Name Value Range Interpretation Code Description Data Source(s) Diastolic blood pressure 70 mm[Hg] 70 mm[Hg] [facility] Body height 68 [in_i] 68 [in_i] [place] ([facility]) Body mass index (BMI) [Ratio] 18.4 kg/m2 18.4 k g/m2 [place] ([facility]) Systolic blood pressure 134 mm[Hg] 134 mm[Hg] [place] ([facility]) Body weight 1940 [oz_av] 1940 [oz_av] [place] ([facility]) Patient Treatment Plan of Care Planned Activity Planned Date Details Description Data Source (s) Levothyroxine Sodium 0.05 MG Oral Tablet [place] ([facility]) torsemide 10 MG Oral Tablet [place] ([facility]) Thera-M 9 mg iron-400 mcg tablet TAKE ON E TABLET BY MOUTH EVERY DAY FOR SUPPLEMENT [place] ([facility]) Tamsulosin hydrochloride 0.4 MG Oral Capsule [place] ([facility]) Sucralfate 1000 MG Oral Tablet [place] ([facility]) tiotropium 0.018 MG/ACTUAT Inhalant Powder [Spiriva] [place] ([facility]) Prednisone 10 MG Oral Tablet [place] ([facility]) pantoprazole 40 MG Delayed Release Oral Tablet [place] ([facility]) olanzapine 15 MG Oral Tablet [place] ([facility]) 24 HR metoprolol succinate 25 MG Extended Release Oral Tablet [place] ([facility]) Magnesium Oxide 400 MG Oral Tablet [place] ([facility]) Lisinopril 20 MG Oral Tablet [place] ([facility]) Levofloxacin 750 MG Oral Tablet [place] ([facility]) Levetiracetam 500 MG Oral Tablet [place] ([facility]) Levetiracetam 250 MG Oral Tablet [place] ([facility]) 200 ACTUAT Levalbuterol 0.045 MG/ACTUAT Metered Dose Inhaler [place] ([facility]) Levalbuterol 0.417 MG/ML Inhalant Solution [place] ([facility]) Klor-Con M10 mEq tablet,extended release TAKE 1 TABLET BY MOUTH ONCE DAILY [place] ([facility]) Furosemide 20 MG Oral Tablet [place] ([facility]) Folic Acid 1 MG Oral Tablet [place] ([facility]) Fluticasone propionate 0.5 MG/ACTUAT / s almeterol 0.05 MG/ACTUAT Dry Powder Inhaler [place] ([facility]) ferrous sulfate 325 MG Delayed Release Oral Tablet [place] ([facility]) Digoxin 0.125 MG Oral Tablet [place] ([facility]) cefprozil 500 MG Oral Tablet [place] ([facility]) benzonatate 100 MG Oral Capsule [place] ([facility]) atorvastatin 20 MG Oral Tablet [place] ([facility]) atorvastatin 10 MG Oral Tablet [place] ([facility]) Atenolol 50 MG Oral Tablet [place] ([facility]) Atenolol 25 MG Oral Tablet [place] ([facility]) Amiodarone hydrochloride 200 MG Oral Tablet [place] ([facility])
[2021-01-13] MEDS ORDERED: NS 1,000 ML IV SCH (16:00)
--- NOTE | 2021-01-13 16:24 | REP ---
INDICATION: Altered Mental Status. COMPARISON: 12/11/2019 obtained as part of a rib series TECHNIQUE: Portable and with apical lordotic technique further limiting the exam. FINDINGS: The technique utilized in obtaining the radiograph has magnified the cardiac silhouette and accentuated the interstitial markings. The cardiomediastinal silhouette lung bullock are unchanged. There is mild cardiomegaly accentuated by technique. There is evidence of interstitial fibrotic change. There are no acute patchy parenchymal opacities or pleural effusions. IMPRESSION: There is no acute cardiopulmonary disease. The exam is limited. Repeat exam is recommended without apical lordotic technique. <Electronically signed by Kade Velazquez > 01/13/21 [id number]
--- NOTE | 2021-01-13 16:27 | REP ---
INDICATION: Altered Mental Status. COMPARISON: None. TECHNIQUE: 5 mm contiguous transaxial sections were obtained from the skull base to the cerebral convexities. FINDINGS: The ventricles and sulci are unchanged. There are no acute extra-axial fluid collections. There is no shift of the midline structures. The deep white matter is unchanged. The posterior fossa is unchanged. The skull and paranasal sinuses are unchanged. IMPRESSION: There is no evidence of acute intracranial pathology or significant change compared to the prior exam. <Electronically signed by Kade Velazquez > 01/13/21 [id number]
--- OUTSIDE RECORDS SUMMARY | 2021-01-13 17:07 | CCD ---
Author Author [facility] Organization [facility] Address Unknown Phone Unavailable Care Team Providers Care Manager [employer] Name Role Phone Dahlia David MD Unavailable Unavailable Dahlia David MD Unavailable Unavailable Dahlia David MD Unavailable Unavailable aDhlia David MD Unavailable Unavailable Dahlia David MD [...] Unavailable Unavailable Dahlia David MD Unavailable Unavailable Dahila David MD Unavailable Unavailable Dahlia David MD Unavailable Unavailable Dahlia David MD Unavailable Unavailable Dahlia David MD Unavailable Unavailable Dahlia David MD Unavailable Unavailable Dahlia David MD Unavailable Unavailable David, Dahlia Talley MD Unavailable Unavailable David, Dahlia Talley MD Unavailable Unavailable David, Dahlia Talley MD Unavailable Unavailable Cachorro, [employer] Unavailable Unavailable Cachorro, A [employer] Unavailable Unavailable Cachorro, A [employer] Unavailable Unavailable Cachorro, A [employer] Unavailable Unavailable Cachorro, A [employer] Unavailable Unavailable Cachorro, A [employer] Unavailable Unavailable Cachorro, A [employer] Unavailable Unavailable Cachorro, A [employer] Unavailable Unavailable Cachorro, A [employer] Unavailable Unavailable Cachorro, A [employer] Unavailable Unavailable Cachorro, A [employer] Unavailable Unavailable Cachorro, A [employer] Unavailable Unavailable Cachorro, A [employer] Unavailable Unavailable Cachorro, A [employer] Unavailable Unavailable Cachorro, A [employer] Unavailable Unavailable Cachorro, A [employer] Unavailable Unavailable Cachorro, A [employer] Unavailable Unavailable Cachorro, A [employer] Unavailable Unavailable Cachorro, A [employer] Unavailable Unavailable Cachorro, A [employer] Unavailable Unavailable Cachorro, A [employer] Unavailable Unavailable Cachorro, A [employer] Unavailable Unavailable Cachorro, A [employer] Unavailable Unavailable Cachorro, A [employer] Unavailable Unavailable Cachorro, A [employer] Unavailable Unavailable Cachorro, A [employer] Unavailable Unavailable Cachorro, A [employer] Unavailable Unavailable Cachorro, A [employer] Unavailable Unavailable Cachorro, A [employer] Unavailable Unavailable Cachorro, A [employer] Unavailable Unavailable Cachorro, A [employer] Unavailable Unavailable Cachorro, A [employer] Unavailable Unavailable Re-disclosure Warning The records that [...] is protected by Article 27-F of the [facility] Public Health law. If you continue you may have access to information: Regarding HIV / AIDS; Provided by facilities licensed or operated by the [facility] Office of Mental Health; or Provided by the [facility] Office for People With Developmental Disabilities. If such information is present, then the following [facility] mandated warning applies: This information has [...] law may result in a fine or correction sentence or both. A general authorization for the release of medical or other information is NOT sufficient authorization for further disc losure. Family History Family Member Name Family Member Gender Family Member Status Date o f Status Description Data Source(s) Unknown Unknown Problem [facility] ([facility]) Unknown Female Encounters Encounter Providers Location Date Indications Data Source(s ) Mayank David MD: [address] [place] [phone], Ph. Attender: Mayank David MD [facility] Medical 07/09/2020 12:00:00 AM EDT [place] ([facility]) Outpatient Attender: DANNY DELGADO 12/02/2019 03:09:01 P M EDT [facility] Outpatient Attender: Yumiko DELGADO 12/02/2019 03:0 9:00 PM EDT [facility] Outpatient Attender: Yumiko DELGADO 11/18/2019 07:0 3:03 PM EDT [facility] Outpatient Attender: DANNY DEL ROSARIO 11/18/2019 07:03:02 P M EDT [facility] Outpatient Attender: DANNY DEL ROSARIO 11/17/2019 07:48:03 A M EDT [facility] Outpatient Attender: Yumiko DEL ROSARIO 11/17/2019 07:4 8:01 AM EDT [facility] Outpatient Attender: DANNY DEL ROSARIO 11/15/2019 02:28:00 P M EDT [facility] Immunizations Vaccine Date Status Description Data Source(s) COVID-19 VACCINE Moderna 05/15/2020 12:00:00 AM EDT completed [facility] Vaccine Series Complete: YESThis Data wa s Submitted to [facility] Via [employer]. COVID-19 VACCINE Moderna 04/17/2020 12:00:00 AM EST completed [facility] Vaccine Series Complete: NOThis Data was Submitted to [facility] Via [employer]. Medications Medication Brand Name Start Date Product [...] 325 MG Delayed Release Oral Tablet [place] ([facility]) Levetiracetam 500 MG Oral Tablet levetiracetam 500 mg tablet levetiracetam 500 mg tablet completed levetiraceta m 500 MG Oral Tablet [place] ([facility]) Atenolol 25 MG Oral Tablet atenolol 25 m g tablet TAKE ONE TABLET BY MOUTH TWICE A DAY atenolol 25 mg tablet TAKE ONE TABLET BY MOUTH TWICE A DAY completed atenolol 25 MG Oral Tablet ATHEN A ([facility]) olanzapine 15 MG Oral Tablet olanzapine 15 mg tablet olanzapine 15 mg tablet completed olanzapine 15 MG Oral Tablet [place] ([facility]) Atenolol 50 MG Oral Tablet atenolol 50 mg tablet atenolol 50 mg tablet completed atenolol 50 MG Oral Table t [place] ([facility]) torsemide 10 MG Oral Tablet torsemide 10 mg tablet torsemide 10 mg ta blet completed torsemide 10 MG Oral Tablet [place] ([facility]) Amiodarone hydrochloride 200 MG Oral Tablet amiodarone 200 mg tablet amiodarone 200 mg tablet completed amiodarone hydrochloride 200 MG Oral Tablet [place] ([facility]) Klor-Con M10 mEq tablet,extended release TAKE 1 TABLET BY MOUTH ONCE DAILY [id number] completed Microen capsulated potassium chloride 10 MEQ Extended Release Oral Tablet [Klor-Con] [place] ([facility]) Digoxin 0.125 MG Oral Tablet digoxin 125 mcg (0.125 mg ) tablet digoxin 125 mcg (0.125 mg) tablet completed digo yessy 0.125 MG Oral Tablet [facility] ([facility]) Thera-M 9 mg iron-400 mcg tablet TAKE ON E TABLET BY MOUTH EVERY DAY FOR SUPPLEMENT [id number] completed Ther a-M 9 mg iron-400 mcg tablet [place] ([facility]) Lisinopril 20 MG Oral Tablet lisinopril 20 mg tablet lisinopril 20 mg tablet completed lisinopril 20 MG Oral Tablet [place] ([facility]) Fluticasone propionate 0.5 MG/ACTUAT / s almeterol 0.05 MG/ACTUAT Dry Powder Inhaler fluticasone 500 mcg-salmeterol 50 mcg/dose blistr powdr for inhalation fluticasone 500 mcg-salmeterol 50 mcg/dose blistr powdr for inhalation completed fluticasone pro pionate 0.5 MG/ACTUAT / salmeterol 0.05 MG/ACTUAT Dry Powder Inhaler [facility] ([facility]) Tamsulosin hydrochloride 0.4 MG Oral Cap kimberly tamsulosin 0.4 mg capsule Take 1 capsule every day by oral route. tamsulosin 0.4 mg capsule Take 1 capsule every day by oral route. 1 capsule(s) completed tamsulosin hydrochloride 0.4 MG Oral Capsule [facility] ([facility]) Folic Acid 1 MG Oral Tablet folic acid 1 mg tablet Take 1 tablet every day by oral route. folic acid 1 mg tablet Take 1 tablet every day by oral route. 1 completed folic acid 1 MG Oral Tablet [place] ([facility]) Levalbuterol 0.417 MG/ML Inhalant Soluti on levalbuterol 1.25 mg/3 mL solution for nebulization levalbuterol 1.25 mg/3 mL solution for nebulization completed levalbuterol 0.417 MG/ML Inh alation Solution [facility] ([facility]) tiotropium 0.018 MG/ACTUAT Inhalant Powd er [Spiriva] Spiriva with HandiHaler 18 mcg and inhalation capsules INHALE 1 PUFF BY MOUTH ONCE DAILY Spiriva with HandiHaler 18 mcg and inhalation capsules INHALE 1 PUFF BY MOUTH ONCE DAILY completed tiotropium 0.018 MG In halation Powder [Spiriva] [facility] ([facility]) Furosemide 20 MG Oral Tablet furosemide 20 mg tablet furosemide 20 mg tablet completed furosemide 20 MG Oral Tablet [place] ([facility]) 24 HR metoprolol succinate 25 MG Extende d Release Oral Tablet metoprolol succinate ER 25 mg tablet,extended release 24 hr metoprolol succinate ER 25 mg tablet,extended release 24 hr complete d 24 HR metoprolol succinate 25 MG Extended Release Oral Tablet [place] ([facility]) pantoprazole 40 MG Delayed Release Oral Tablet pantoprazole 40 mg tablet,delayed release pantoprazole 40 mg tablet,delayed release completed pantoprazole 40 MG Delayed Release Oral Tablet [place] ([facility]) benzonatate 100 MG Oral Capsule benzonat ate 100 mg capsule TAKE TWO CAPSULES BY MOUTH THREE TIMES A DAY NEEDED FOR COUGH benzonatate 100 mg capsule TAKE TWO CAPSULES BY MOUTH THREE TIMES A DAY NEEDED FOR COUGH completed benzonatate 100 MG Oral Capsule [place] ([facility]) cefprozil 500 MG Oral Tablet cefprozil 500 mg tablet cefprozil 5 00 mg tablet completed cefprozil 500 MG Oral Tablet [facility]) atorvastatin 20 MG Oral Tablet atorvastatin 20 mg tabl et atorvastatin 20 mg tablet completed atorvastatin 20 MG Oral Tablet [facility]) 200 ACTUAT Levalbuterol 0.045 MG/ACTUAT Metered Dose Inhaler levalbuterol HFA 45 mcg/actuation aerosol inhaler levalbuterol HFA 45 mcg/actuation aeroso l inhaler completed 200 ACT UAT levalbuterol 0.045 MG/ACTUAT Metered Dose Inhaler [facility]) atorvastatin 10 MG Oral Tablet atorvasta tin 10 mg tablet Take 1 tablet every day by oral route at bedtime. atorvastatin 10 mg tablet Take 1 tablet every day by oral route at bedtime. 1 completed atorvastatin 10 MG Oral Tablet [place] ([facility]) Levetiracetam 250 MG Oral Tablet levetiracetam 250 mg tablet levetiracetam 250 mg tablet completed levetiraceta m 250 MG Oral Tablet [facility]) Magnesium Oxide 400 MG Oral Tablet magne sium oxide 400 mg (241.3 mg magnesium) tablet Take 1 tablet every day by oral route. magnesium oxide 400 mg (241.3 mg magnesium) tablet Take 1 tablet every day by oral route. 1 completed magnesium oxide 400 MG Oral Tablet [facility] ([facility]) Levofloxacin 750 MG Oral Tablet levofloxacin 750 mg ta blet levofloxacin 750 mg tablet completed levofloxacin 75 0 MG Oral Tablet [place] ([facility]) Levothyroxine Sodium 0.05 MG Oral Tablet levothyroxine 50 mcg tablet levothyroxine 50 mcg tablet completed levothyroxine sodium 0.05 MG Oral Tablet [place] ([facility]) Sucralfate 1000 MG Oral Tablet sucralfate 1 gram table t sucralfate 1 gram tablet completed sucralfate 1000 MG Oral Tablet [place] ([facility]) Prednisone 10 MG Oral Tablet prednisone 10 mg tablet prednisone 10 mg tablet completed prednisone 10 MG Oral Tablet [place] ([facility]) Insurance Providers Payer name Policy type / Coverage type Policy ID Covered green party ID Covered green party's relationship to voss Policy Voss Plan Information MEDICARE A [id number] Self [id number] A MEDICARE COMPLETE [id number] SP [id number] MEDICARE BLUE PPO [id number] SP [id number] MEDICARE [id number] SP [id number] A MEDICARE A [id number] Self [id number] A Medicare P [id number] S [id number] A Medicare P [id number] S [id number] A Medicare S [id number] S [id number] A EXCELLUS MEDICARE BLUE PPO G [id number] Self [id number] MEDICARE BLUE PPO [id number] SP [id number] MEDICARE BLUE PPO [id number] SP [id number] Medicare Medicare Primary [id number] Self Medicare P [id number] S [id number] MEDICARE -O/P [id number] 18 [id number] MEDICARE [id number] SP [id number] Excell[employer] BCBS Medicare Advantage P [id number] S [id number] Medicare S [id number] S [id number] A BLUE CROSS BLUE SHIELD MCR -OP [id number] [employer] BCBS B [id number] S VYM [id number] BLUE CROSS BLUE SHIELD MCR -PROFEE [id number] 18 [id number] MEDICARE [id number] SP [id number] A [employer] BCBS B [id number] S VYM [id number] [employer] BCYO P [id number] S VYM [id number] BS Medicare Ppo Commercial [id number] Self MEDICARE C [id number] S [id number] A Problems, Conditions, and Diagnoses Code Display Name Description Problem Type Effective Dates Data Source(s) 977387789 SNOMED CT Concept SNOMED CT Concept Problem 11/29 04:44:04 PM EDT [facility] ([facility]) [id number] Hypertensive disorder Hypertensive Disorder Problem 11/30/2019 04:44:04 PM EDT [facility] ([facility]) [id number] Depressive disorder Depressive Disorder Problem 1 04:44:04 PM EDT [facility] ([facility]) I26.09 Other pulmonary embolism with acute cor pulmonale Other pulmonary embolism with acute cor pulmonale 11/17/2019 07:47:28 AM EDT [facility] [id number] Acute embolism and thrombosis of unspeci fied calf muscular vein Acute embolism and thrombosis of unspecified calf muscular vein 11/17/2019 07:47:28 AM EDT [facility] C20 Malignant neoplasm of rectum Malignant tumor of rectum 11/17/2019 07:47:28 AM EDT [facility] [id number] Embolism from thrombosis of vein of dist al lower extremity Embolism from Thrombosis of Vein of Distal Lower Extremity Problem 02/2019 12:00:00 AM EDT [facility] ([facility]) [id number] Acute deep vein thrombosis of lower limb Acute Deep Vein Thrombosis of Lower Limb Problem 11/16/2019 12:00:00 AM EDT [place] ([facility]) [id number] Acute cor pulmonale Acute Cor Pulmonale Problem 1 12:00:00 AM EDT [place] ([facility]) [id number] Malignant tumor of rectum Malignant Tumor of Rectum Pr oblem 11/16/2019 12:00:00 AM EDT [place] ([facility]) Surgeries/Procedures No Information Results ID Date Data Source [id number] 12/15/2019 04:41:00 AM EDT [place] ([facility]) Name Value Range Interpretation Code Description Data Faith rce(s) Supporting Document(s) magnesium level 2.1 mg/dL 1.8-2.4 Magnesium Level ATHE NA ([facility]) ID Date Data Source [id number] 12/15/2019 04:41:00 AM EDT [facility] ([facility]) Name Value Range Interpretation Code Description Data Faith rce(s) Supporting Document(s) glucose, fasting 89 mg/dL 70-100 Glucose, Fasting AT [facility] ([facility]) creatinine for GFR 0.81 mg/dL 0.70-1.30 Creatinine for GF R [facility] ([facility]) blood urea nitrogen 18 mg/dL 7-18 Blood Urea Nitro gen [facility] ([facility]) glomerular filtration rate > 60.0 >42 Glomerula r Filtration Rate [facility] ([facility]) sodium level 143 mEq/L 136-145 Sodium Level [place] (No [facility]) potassium serum 4.3 mEq/L 3.5-5.1 Potassium Serum [facility] NA ([facility]) carbon dioxide level 41 mEq/L 21-32 Above high normal Carbon D ioxide Level [place] ([facility]) chloride level 101 mEq/L 98-107 Chloride Level [place] ([facility]) anion gap 1 mEq/L 8-16 Below low normal Anion Gap [facility] ( [facility]) calcium level 7.7 mg/dL 8.8-10.2 Below low normal Calcium Level AT [facility] ([facility]) ID Date Data Source [id number] 12/15/2019 04:41:00 AM EDT [place] ([facility]) Name Value Range Interpretation Code Description Data Faith rce(s) Supporting Document(s) white blood count 7.9 10 4.0-10.0 White Blood Count [place] ([facility]) red blood count 2.92 10 4.30-6.10 Below low normal Red Blood Coun t [place] ([facility]) hemoglobin 8.6 g/dL 13.5-17.5 Below low normal Hemoglobin [place] ( [facility]) hematocrit 30.0 % 42.0-52.0 Below low normal Hematocrit [facility] ( [facility]) mean corpuscular volume 102.7 fL 80.0-96.0 Above high normal Mean Corpuscular Volume [facility] ([facility]) mean corpuscular hemoglobin 29.5 pg 27.0-33.0 Mean Cor puscular Hemoglobin [facility] ([facility]) mean corpuscular HGB conc 28.7 g/dL 32.0-36.5 Below low chinmay l Mean Corpuscular HGB Conc [facility] ([facility]) red cell distribution width 16.4 % 11.5-14.5 Above high no rmal Red Cell Distribution Width [facility] ([facility]) platelet count, automated 178 10 150-450 Platelet C ount, Automated [place] ([facility]) neutrophils % 78.7 % 36.0-66.0 Above high normal Neutrophils % A [facility] ([facility]) lymph % 9.0 % 24.0-44.0 Below low normal Lymph % [facility] ( [facility]) eos % 0.6 % 0.0-3.0 Eos % [facility] ([facility]) mono % 9.5 % 0.0-5.0 Above high normal Maverick % [facility] ([facility]) baso % 0.5 % 0.0-1.0 Baso % [place] ([facility]) nucleated red blood cell % 0.0 % 0-0 Nucleated Red Blood Cell % [place] ([facility]) immature granulocyte % 1.7 % 0-3.0 Immature Gran ulocyte % [facility] ([facility]) neutrophils # 6.2 10 1.5-8.5 Neutrophils # [place] ( [facility]) lymph # 0.7 10 1.5-5.0 Below low normal Lymph # [place] ( [facility]) mono # 0.8 10 0.0-0.8 Maverick # [place] ([facility]) eos # 0.1 10 0.0-0.5 Eos # [place] ([facility]) baso # 0.0 10 0.0-0.2 Baso # [place] ([facility]) ID Date Data Source [id number] 12/14/2019 05:00:00 AM EDT [facility]) Name Value Range Interpretation Code Description Data Faith rce(s) Supporting Document(s) magnesium level 2.0 mg/dL 1.8-2.4 Magnesium Level [facility]) ID Date Data Source [id number] 12/14/2019 05:00:00 AM EDT [place] ([facility]) Name Value Range Interpretation Code Description Data Faith rce(s) Supporting Document(s) glucose, fasting 76 mg/dL 70-100 Glucose, Fasting AT [facility]) blood urea nitrogen 17 mg/dL 7-18 Blood Urea Nitro gen [place] ([facility]) creatinine for GFR 0.74 mg/dL 0.70-1.30 Creatinine for GF R [place] ([facility]) glomerular filtration rate > 60.0 >42 Glomerula r Filtration Rate [facility] ([facility]) sodium level 143 mEq/L 136-145 Sodium Level [place] (No [facility]) potassium serum 4.5 mEq/L 3.5-5.1 Potassium Serum ATHE NA ([facility]) chloride level 102 mEq/L 98-107 Chloride Level [facility] ([facility]) anion gap 0 mEq/L 8-16 Below low normal Anion Gap [facility] ( [facility]) carbon dioxide level 41 mEq/L 21-32 Above high normal Carbon D ioxide Level [facility]) calcium level 7.7 mg/dL 8.8-10.2 Below low normal Calcium Level AT [facility] ([facility]) ID Date Data Source [id number] 12/14/2019 05:00:00 AM EDT [place] ([facility]) Name Value Range Interpretation Code Description Data Faith rce(s) Supporting Document(s) white blood count 9.8 10 4.0-10.0 White Blood Count [facility] ([facility]) red blood count 3.06 10 4.30-6.10 Below low normal Red Blood Coun t [facility] ([facility]) hemoglobin 9.0 g/dL 13.5-17.5 Below low normal Hemoglobin [facility] ( [facility]) mean corpuscular volume 101.0 fL 80.0-96.0 Above high normal Mean Corpuscular Volume [facility] ([facility]) hematocrit 30.9 % 42.0-52.0 Below low normal Hematocrit [facility] ( [facility]) mean corpuscular hemoglobin 29.4 pg 27.0-33.0 Mean Cor puscular Hemoglobin [facility] ([facility]) mean corpuscular HGB conc 29.1 g/dL 32.0-36.5 Below low chinmay l Mean Corpuscular HGB Conc [facility] ([facility]) red cell distribution width 16.6 % 11.5-14.5 Above high no rmal Red Cell Distribution Width [facility] ([facility]) neutrophils % 84.2 % 36.0-66.0 Above high normal Neutrophils % A THEN ([facility]) platelet count, automated 173 10 150-450 Platelet C ount, Automated [place] ([facility]) lymph % 5.4 % 24.0-44.0 Below low normal Lymph % [facility] ( [facility]) eos % 0.3 % 0.0-3.0 Eos % [place] ([facility]) mono % 8.7 % 0.0-5.0 Above high normal Maverick % [facility] ([facility]) immature granulocyte % 1.2 % 0-3.0 Immature Gran ulocyte % [facility] ([facility]) baso % 0.2 % 0.0-1.0 Baso % [place] ([facility]) neutrophils # 8.2 10 1.5-8.5 Neutrophils # [place] ( [facility]) nucleated red blood cell % 0.0 % 0-0 Nucleated Red Blood Cell % [place] ([facility]) mono # 0.9 10 0.0-0.8 Above high normal Maverick # [place] ([facility]) lymph # 0.5 10 1.5-5.0 Below low normal Lymph # [place] ( [facility]) eos # 0.0 10 0.0-0.5 Eos # [place] ([facility]) baso # 0.0 10 0.0-0.2 Baso # [place] ([facility]) ID Date Data Source [id number] 12/12/2019 04:06:00 PM EDT [facility] ([facility]) Name Value Range Interpretation Code Description Data Faith rce(s) Supporting Document(s) white blood count 10.9 10 4.0-10.0 Above high normal White Blood Count [place] ([facility]) red blood count 2.96 10 4.30-6.10 Below low normal Red Blood Coun t [place] ([facility]) hemoglobin 8.8 g/dL 13.5-17.5 Below low normal Hemoglobin [place] ( [facility]) hematocrit 30.2 % 42.0-52.0 Below low normal Hematocrit [place] ( [facility]) mean corpuscular hemoglobin 29.7 pg 27.0-33.0 Mean Cor puscular Hemoglobin [place] ([facility]) mean corpuscular volume 102.0 fL 80.0-96.0 Above high normal Mean Corpuscular Volume [place] ([facility]) red cell distribution width 17.8 % 11.5-14.5 Above high no rmal Red Cell Distribution Width [place] ([facility]) mean corpuscular HGB conc 29.1 g/dL 32.0-36.5 Below low chinmay l Mean Corpuscular HGB Conc [place] ([facility]) nucleated red blood cell % 0.0 % 0-0 Nucleated Red Blood Cell % [place] ([facility]) platelet count, automated 166 10 150-450 Platelet C ount, Automated [place] ([facility]) ID Date Data Source [id number] 12/12/2019 05:33:00 AM EDT [facility] ([facility]) Name Value Range Interpretation Code Description Data Faith rce(s) Supporting Document(s) white blood count 11.2 10 4.0-10.0 Above high normal White Blood Count [facility] ([facility]) red blood count 2.32 10 4.30-6.10 Below low normal Red Blood Coun t [facility] ([facility]) hematocrit 24.3 % 42.0-52.0 Below low normal Hematocrit [facility] ( [facility]) hemoglobin 6.8 g/dL 13.5-17.5 Below low normal Hemoglobin [facility] ( [facility]) mean corpuscular volume 104.7 fL 80.0-96.0 Above high normal Mean Corpuscular Volume [place] ([facility]) mean corpuscular hemoglobin 29.3 pg 27.0-33.0 Mean Cor puscular Hemoglobin [facility] ([facility]) mean corpuscular HGB conc 28.0 g/dL 32.0-36.5 Below low chinmay l Mean Corpuscular HGB Conc [facility] ([facility]) red cell distribution width 16.9 % 11.5-14.5 Above high no rmal Red Cell Distribution Width [facility] ([facility]) platelet count, automated 198 10 150-450 Platelet C ount, Automated [facility] ([facility]) nucleated red blood cell % 0.0 % 0-0 Nucleated Red Blood Cell % [place] ([facility]) ID Date Data Source [id number] 12/12/2019 05:32:00 AM EDT BRAM[facility]LL ([facility]) Name Value Range Interpretation Code Description Data Faith rce(s) Supporting Document(s) magnesium level 2.0 mg/dL 1.8-2.4 Magnesium Level ATHE NA ([facility]) ID Date Data Source [id number] 12/12/2019 05:32:00 AM EDT [facility]) Name Value Range Interpretation Code Description Data Faith rce(s) Supporting Document(s) glucose, fasting 98 mg/dL 70-100 Glucose, Fasting AT [facility]) blood urea nitrogen 21 mg/dL 7-18 Above high normal Blood Ure a Nitrogen [place] ([facility]) creatinine for GFR 1.03 mg/dL 0.70-1.30 Creatinine for GF R BRAMWELL ([facility]) glomerular filtration rate > 60.0 >42 Glomerula r Filtration Rate [facility] ([facility]) sodium level 143 mEq/L 136-145 Sodium Level [place] (No [facility]) chloride level 101 mEq/L 98-107 Chloride Level [place] ([facility]) potassium serum 4.6 mEq/L 3.5-5.1 Potassium Serum [facility] ([facility]) carbon dioxide level 42 mEq/L 21-32 Above high normal Carbon D ioxide Level [facility] ([facility]) anion gap 0 mEq/L 8-16 Below low normal Anion Gap [facility] ( [facility]) calcium level 7.8 mg/dL 8.8-10.2 Below low normal Calcium Level AT [facility] ([facility]) ID Date Data Source [id number] 12/11/2019 06:42:00 PM EDT BR[facility] ([facility]) Name Value Range Interpretation Code Description Data Faith rce(s) Supporting Document(s) CPK creatine phosphokinase 29 U/L 39-308 Below low norm al CPK Creatine Phosphokinase [place] ([facility]) mb/CK relative index < or =4 Above high normal mb/CK Re lative Index [place] ([facility]) troponin I < 0.02 < 0.10 Troponin I [place] ([facility]) CK-mb value mass 2.8 NG/mL <3.6 CK-mb Value Mass AT [facility]) ID Date Data Source [id number] 12/11/2019 10:56:00 AM EDT [facility]) Name Value Range Interpretation Code Description Data Faith rce(s) Supporting Document(s) thyroid stimulating hormone 6.510 uIU/mL 0.358-3.740 Above high no rmal Thyroid Stimulating Hormone [facility]) ID Date Data Source [id number] 12/11/2019 10:56:00 AM EDT [facility]) Name Value Range Interpretation Code Description Data Faith rce(s) Supporting Document(s) digoxin level 0.4 NG/mL 0.5-2.0 Below low normal Digoxin Level AT [facility]) ID Date Data Source [id number] 12/11/2019 10:56:00 AM EDT [facility]) Name Value Range Interpretation Code Description Data Faith rce(s) Supporting Document(s) glucose, fasting 86 mg/dL 70-100 Glucose, Fasting AT [facility]) blood urea nitrogen 18 mg/dL 7-18 Blood Urea Nitro gen [facility] ([facility]) glomerular filtration rate > 60.0 >42 Glomerula r Filtration Rate [facility] ([facility]) creatinine for GFR 1.02 mg/dL 0.70-1.30 Creatinine for GF R [facility] ([facility]) sodium level 143 mEq/L 136-145 Sodium Level [facility] ([facility]) potassium serum 4.5 mEq/L 3.5-5.1 Potassium Serum ATH NA [facility]) carbon dioxide level 43 mEq/L 21-32 Above high normal Carbon D ioxide Level [facility] ([facility]) chloride level 101 mEq/L 98-107 Chloride Level [facility]) calcium level 8.1 mg/dL 8.8-10.2 Below low normal Calcium Level AT K[facility]ILAH ([facility]) ID Date Data Source [id number] 12/11/2019 10:56:00 AM EDT [facility] ([facility]) Name Value Range Interpretation Code Description Data Faith rce(s) Supporting Document(s) white blood count 10.0 10 4.0-10.0 White Blood Count [place] ([facility]) hemoglobin 8.8 g/dL 13.5-17.5 Below low normal Hemoglobin [place] ( [facility]) red blood count 2.99 10 4.30-6.10 Below low normal Red Blood Coun t [facility] ([facility]) mean corpuscular volume 105.4 fL 80.0-96.0 Above high normal Mean Corpuscular Volume [facility] ([facility]) hematocrit 31.5 % 42.0-52.0 Below low normal Hematocrit [facility] ( [facility]) mean corpuscular HGB conc 27.9 g/dL 32.0-36.5 Below low chinmay l Mean Corpuscular HGB Conc [facility] ([facility]) mean corpuscular hemoglobin 29.4 pg 27.0-33.0 Mean Cor puscular Hemoglobin [facility] ([facility]) platelet count, automated 229 10 150-450 Platelet C ount, Automated [facility] ([facility]) red cell distribution width 17.2 % 11.5-14.5 Above high no rmal Red Cell Distribution Width [place] ([facility]) lymph % 5.4 % 24.0-44.0 Below low normal Lymph % [facility] ( [facility]) neutrophils % 87.2 % 36.0-66.0 Above high normal Neutrophils % A THENA ([facility]) eos % 0.3 % 0.0-3.0 Eos % [facility] ([facility]) mono % 5.8 % 0.0-5.0 Above high normal Maverick % [place] ([facility]) baso % 0.5 % 0.0-1.0 Baso % [facility] ([facility]) nucleated red blood cell % 0.0 % 0-0 Nucleated Red Blood Cell % [place] ([facility]) immature granulocyte % 0.8 % 0-3.0 Immature Gran ulocyte % [place] ([facility]) neutrophils # 8.7 10 1.5-8.5 Above high normal Neutrophils # A THENA ([facility]) lymph # 0.5 10 1.5-5.0 Below low normal Lymph # [place] ( [facility]) mono # 0.6 10 0.0-0.8 Maverick # [place] ([facility]) eos # 0.0 10 0.0-0.5 Eos # [place] ([facility]) baso # 0.1 10 0.0-0.2 Baso # [facility] ([facility]) ID Date Data Source [id number] 12/11/2019 10:55:00 AM EDT [facility] ([facility]) Name Value Range Interpretation Code Description Data Faith rce(s) Supporting Document(s) packed cells transfused product: packed cells count: 2 Packed Cells [facility] ([facility]) ID Date Data Source [id number] 12/11/2019 10:55:00 AM EDT [facility]) Name Value Range Interpretation Code Description Data Faith rce(s) Supporting Document(s) Ab screen (indirect alfreda)vis negative Ab Sc reen (Indirect Alfreda)vis [facility] ([facility]) blood type O positive Blood Type [facility] ([facility]) ID Date Data Source [id number] 11/16/2019 11:29:46 AM EDT [facility] Initial Intake Information From: patient Infectious Disease / [...] been admitted to the hospital? Yes - [facility] HD Have you been to an emergency room (ER) or urgent care clinic? No - [facility] Emergency room (ER) or urgent care date [...] during this visit, including review of any gtly-ywa-hlwayte medications, herbal therapies, and/or supplements.Allergy ReviewAllergy List [...] I82.469)Other pulmonary embolism with acute cor pulmonale (NUN49-U61.09) Assessment: Instructions: Tretament of this complicated by bleeding from rectal cancer and his reluctance to get an IVC filter.We will talk with Home Health and discuss that he is more of a comfort care patient at this point so we can discuss changing parameters for checking and responding to O2 sat.Recheck here as needed.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 She will bring in [facility] paperwork for me to fiill out.10 [...] and his daughter who is a health senior care manager herself is willing to take this role. She will bring in [employer] paperwork for me to fiill out.10 minutes [...] ( (Critical)Orders:Telephone E&M 5-10 min Medical Discussion [[id number]] Name Value Range Interpretation Code Description Data Faith rce(s) Supporting Document(s) Procedure Social History No Information Vital Signs ID Date Data Source [id number] Name Value Range Interpretation Code Description Data Source(s) Diastolic blood pressure 70 mm[Hg] 70 [facility]Hg] [facility] Body height 68 [in_i] 68 [in_i] [facility] ([facility]) Body mass index (BMI) [Ratio] 18.4 kg/m2 18.4 k g/m2 [place] ([facility]) Systolic blood pressure 134 mm[Hg] 134 mm[Hg] A THENA ([facility]) Body weight 1940 [oz_av] 1940 [oz_av] [facility] ([facility]) Patient Treatment Plan of Care Planned Activity Planned Date Details Description Data Source (s) Levothyroxine Sodium 0.05 MG Oral Tablet [facility] ([facility]) torsemide 10 MG Oral Tablet [facility] ([facility]) Thera-M 9 mg iron-400 mcg tablet TAKE ON E TABLET BY MOUTH EVERY DAY FOR SUPPLEMENT [facility] ([facility]) Tamsulosin hydrochloride 0.4 MG Oral Capsule [facility] ([facility]) Sucralfate 1000 MG Oral Tablet [facility] ([facility]) tiotropium 0.018 MG/ACTUAT Inhalant Powder [Spiriva] [facility] ([facility]) Prednisone 10 MG Oral Tablet [facility] ([facility]) pantoprazole 40 MG Delayed Release Oral Tablet [facility] ([facility]) olanzapine 15 MG Oral Tablet [facility] ([facility]) 24 HR metoprolol succinate 25 MG Extended Release Oral Tablet [facility] ([facility]) Magnesium Oxide 400 MG Oral Tablet [facility] ([facility]) Lisinopril 20 MG Oral Tablet [facility] ([facility]) Levofloxacin 750 MG Oral Tablet [facility] ([facility]) Levetiracetam 500 MG Oral Tablet [facility] ([facility]) Levetiracetam 250 MG Oral Tablet [facility] ([facility]) 200 ACTUAT Levalbuterol 0.045 MG/ACTUAT Metered Dose Inhaler [facility] ([facility]) Levalbuterol 0.417 MG/ML Inhalant Solution [facility] ([facility]) Klor-Con M10 mEq tablet,extended release TAKE 1 TABLET BY MOUTH ONCE DAILY [facility] ([facility]) Furosemide 20 MG Oral Tablet [facility] ([facility]) Folic Acid 1 MG Oral Tablet [facility] ([facility]) Fluticasone propionate 0.5 MG/ACTUAT / s almeterol 0.05 MG/ACTUAT Dry Powder Inhaler [facility] ([facility]) ferrous sulfate 325 MG Delayed Release Oral Tablet [facility] ([facility]) Digoxin 0.125 MG Oral Tablet [facility] ([facility]) cefprozil 500 MG Oral Tablet [facility] ([facility]) benzonatate 100 MG Oral Capsule [facility] ([facility]) atorvastatin 20 MG Oral Tablet [facility] ([facility]) atorvastatin 10 MG Oral Tablet [facility] ([facility]) Atenolol 50 MG Oral Tablet A THENA ([facility]) Atenolol 25 MG Oral Tablet A THENA ([facility]) Amiodarone hydrochloride 200 MG Oral Tablet [facility] ([facility])
[2021-01-13 18:26] LABS: RSV AMPLIFICATION NEGATIVE (NEGATIVE)
[2021-01-13 18:32] LABS: BASO % 0.3 % (0.0-1.0); EOS % 0.5 % (0.0-3.0); HEMATOCRIT 23.6 % (42.0-52.0); LYMPH # 0.7 10^3/uL (1.5-5.0); LYMPH % 9.1 % (24.0-44.0); MEAN CORPUSCULAR HEMOGLOBIN 27.1 pg (27.0-33.0); MEAN CORPUSCULAR HGB CONC 27.5 g/dl (32.0-36.5); MEAN CORPUSCULAR VOLUME 98.3 fl (80.0-96.0); MONO # 0.5 10^3/uL (0.0-0.8); NEUTROPHILS # 6.6 10^3/uL (1.5-8.5); NEUTROPHILS % 83.2 % (36.0-66.0); PLATELET COUNT, AUTOMATED 309 10^3/uL (150-450); WHITE BLOOD COUNT 7.9 10^3/uL (4.0-10.0)
[2021-01-13 18:33] LABS: HEMOGLOBIN 6.5 g/dl (13.5-17.5)
[2021-01-13 18:50] LABS: MB/CK RELATIVE INDEX 8.51 (< OR =4)
[2021-01-13 18:55] LABS: ACETAMINOPHEN LEVEL < 2.0 UG/ML (10.0-30.0); ALBUMIN 2.2 GM/DL (3.2-5.2); ALT/SGPT 22 U/L (12-78); BILIRUBIN,DIRECT < 0.1 MG/DL (0.0-0.2); BILIRUBIN,TOTAL 0.2 MG/DL (0.2-1.0); BLOOD UREA NITROGEN 28 MG/DL (7-18); CALCIUM LEVEL 8.1 MG/DL (8.8-10.2); CARBON DIOXIDE LEVEL 40 MEQ/L (21-32); CHLORIDE LEVEL 101 MEQ/L (98-107); CREATININE FOR GFR 0.77 MG/DL (0.70-1.30); ETHYL ALCOHOL (ETHANOL) < 0.003 % (0.000-0.010); GLOMERULAR FILTRATION RATE > 60.0 (>42); GLUCOSE, FASTING 105 MG/DL (70-100); POTASSIUM SERUM 4.3 MEQ/L (3.5-5.1); SALICYLATE LEVEL < 1.7 MG/DL (5.0-30.0); SODIUM LEVEL 143 MEQ/L (136-145); TOTAL PROTEIN 6.9 GM/DL (6.4-8.2)
[2021-01-13] MEDS ORDERED: ISOVUE-370 76% 100ML VIAL As Ordered ONE (19:53)
[2021-01-13] MEDS ORDERED: OLAN7.5T8 PO (20:16)
[2021-01-13] MEDS ORDERED: VENTAER INH (20:16)
[2021-01-13] MEDS ORDERED: HOME MED LIST COMPLETE! XX SCH (20:20)
--- NOTE | 2021-01-13 21:07 | REPVR ---
PROCEDURE INFORMATION: Exam: CT Abdomen And Pelvis With Contrast Exam date and time: 01/13/2021 8:13 PM Age: 75 years old Clinical indication: Condition or disease; Other: HX duodenal ulcers, hgb 6.5 TECHNIQUE: Imaging protocol: Computed tomography of the abdomen and pelvis with contrast. Radiation optimization: All CT scans at this facility use at least one of these dose optimization techniques: automated exposure control; mA and/or kV adjustment per patient size (includes targeted exams where dose is matched to clinical indication); or iterative reconstruction. Contrast material: ISOVUE 370; Contrast volume: 100 ml; Contrast route: INTRAVENOUS (IV); COMPARISON: CT ABD/PEL W/IV CONTRAST ONLY 04/08/2019 9:53 PM FINDINGS: Diaphragm: A small sliding hiatal hernia is present. Liver: There are hypodense hepatic masses demonstrated, the largest located in segment 2 of the left lobe of the liver demonstrating multiple punctate calcifications. 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 Hepatomegaly. Gallbladder and bile ducts: Normal. No calcified stones. No ductal dilation. Pancreas: Visible nondilated pancreatic duct. Pancreas otherwise appears unremarkable. Spleen: Normal. No splenomegaly. Adrenal glands: Normal. No mass. Kidneys and ureters: Multiple bilateral simple renal cysts measure up to 10 cm in the inferior aspect of the left kidney. Also noted are several probable hyperdense cysts in both the right and left kidneys measuring up to 2.1 cm. Confirmation with nonemergent renal ultrasound could be obtained if clinically desired. Stomach and bowel: There is increased feces throughout the colon consistent with constipation. There is mild dilatation of the proximal colon. There is a large mass likely arising from the rectosigmoid colon filling much of the deep central pelvis measuring approximately 6.5 x 7.2 x 6.9 cm. Findings consistent with a locally invasive distal colonic neoplasm. Impression Appendix: No evidence of appendicitis. Intraperitoneal space: Unremarkable. No free air. No significant fluid collection. Vasculature: The aortoiliac vessels demonstrate moderate atherosclerotic calcification. There is an infrarenal focal abdominal aortic aneurysm measuring 3.3 cm maximum transverse dimensions extending craniocaudad for 4 cm. Lymph nodes: Unremarkable. No enlarged lymph nodes. Urinary bladder: Unremarkable as visualized. Reproductive: The prostate gland demonstrates moderate hyperplasia. Bones/joints: Fusy-fy-qczjmevr central spinal stenosis L2-L3, moderate central spinal stenosis L3-L4, moderate to severe central spinal stenosis L4-L5. Bulging annulus L5-S1. Osteoporosis. Soft tissues: 9.7 mm soft tissue nodule posterior aspect right lower lobe not demonstrated on the prior examination of 04/08/2019. Other findings: Cachexia. IMPRESSION: 1. 9.7 mm soft tissue nodule posterior aspect right lower lobe not demonstrated on the prior examination of 04/08/2019. Considering the other findings described in this report the lesion is worrisome for a metastasis. 2. There are hypodense hepatic masses demonstrated, the largest located in segment 2 of the left lobe of the liver demonstrating multiple punctate calcifications. 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 3. A small sliding hiatal hernia is present. 4. Multiple bilateral simple renal cysts measure up to 10 cm in the inferior aspect of the left kidney. Also noted are several probable hyperdense cysts in both the right and left kidneys measuring up to 2.1 cm. Confirmation with nonemergent renal ultrasound could be obtained if clinically desired. 5. There is increased feces throughout the colon consistent with constipation. There is mild dilatation of the proximal colon. 6. Moderate prostatic hyperplasia. 7. Cachexia. 8. Infrarenal abdominal aortic aneurysm. COMMENTS: Consistent with the [employer]'s Incidental Findings Committee white paper (J Am Steve Radiol 2018): Any incidental renal lesion less than 1 cm or classified as too small to characterize, or any incidental cystic renal lesion characterized as simple-appearing, is likely benign. No follow-up imaging is recommended for these lesions per consensus recommendations based on imaging criteria. Electronically signed by: Irwin Contreras On 01/13/2021 21:06:13 PM
[2021-01-13] MEDS ORDERED: ONDANSETRON 4MG/2ML VIAL IV PRN (22:35)
[2021-01-13] MEDS ORDERED: ACETAMINOPHEN TAB 650MG DOSE (2X325MG) PO PRN (22:35)
[2021-01-13] MEDS ORDERED: ALBUTEROL 90 MCG/ACT 8GM HFA INHALER INH PRN (22:35)
[2021-01-13] MEDS: LR 1,000 ML IV SCH (22:35)
[2021-01-13] MEDS ORDERED: FUROSEMIDE 20MG/2ML VIAL (J1940) IV ONE (22:35)
--- NOTE | 2021-01-13 22:39 | HPEPDOC ---
[facility] Medical History & Physical Date of Admission Jan 13, 2021 Date of Service: Jan 13, 2021 Attending Physician: CARL CARNEY MD History and Physical CHIEF COMPLAINT: [75 y/o male brought into ED by home health nurse for evaluation of weakness, diarrhea] HISTORY OF PRESENT ILLNESS: [Patient is a somewhat poor historian secondary to suspected mild cognitive impairment. This is a 75 y/o male with a pmh of copd 3L o2 dependent, hfpef, paroxysmal a-fib not on anticoagulation, inoperable colorectal ca, lung ca, duodenal ulcer with perforation, schizophrenia who was brought to ED by home health nurse after being found soiled and weak. Patient tells me that he has been experiencing diarrhea for some time, however is unable to give me an accurate time frame. Patient tells me he is having approx 3-4 loose stools/day and that the stools are intermittently bloody. Patient states that he has been having some associated nausea and abdominal discomfort around his navel. Patient also admits to some associated dysuria. Patient, at the time of my exam, denies any fevers, chills, chest pain, sob, cough, wheezing, vomiting, pedal edema. ] PAST MEDICAL HISTORY: 1. [See HPI PAST SURGICAL HISTORY: 1. [B/l cataract removal]. 2. [Abdominal washout]. 3. [Colonoscopy and polypectomy]. SOCIAL HISTORY: Tobacco use:[Former] ETOH: [Denies] Illicit drug use: [Denies] FAMILY HISTORY: Reviewed - none pertinent ALLERGIES: Please see below. REVIEW OF SYSTEMS: CONSTITUTIONAL: [Denies fevers, chills]. HEENT: [Denies uri sx]. CARDIOVASCULAR: [Admits to intermittent palpitations. Denies chest pain]. RESPIRATORY: [Denies sob, wheezing]. GASTROINTESTINAL: [See HPI]. GENITOURINARY: [See HPI]. SKIN: [Denies rash]. MUSCULOSKELETAL: [Denies acute joint/back pain]. NEUROLOGICAL: [Denies syncope, paresthesias]. PSYCHIATRIC: [Hx of schizophrenia]. ENDOCRINE: [Denies hx of dm]. HEMATOLOGIC/LYMPHATIC: [Hx of pe]. HOME MEDICATIONS: Please see below. PHYSICAL EXAMINATION: VITAL SIGNS: Please see below. GENERAL APPEARANCE: [This is a pleasant, cachetic 75 y/o male. He is resting comfortably on ED stretcher in no acute distress]. HEENT: [No mass or lesion. Nasal canula in place. EOMI. No scleral icterus. Nares patent. oral mucosa moist]. CARDIOVASCULAR: [Regular rate, rhythm. no murmurs, rubs, gallops]. LUNGS: [Decreased breath sounds b/l. no adventitious lung sounds]. ABDOMEN: [Soft, mild tenderness throughout]. MUSCULOSKELETAL: [No joint deformity noted]. EXTREMITIES: [No pedal edema appreciated. No overlying skin changes. Pulses intact]. NEUROLOGICAL: [Speech clear. A+Ox3. No focal deficit]. PSYCHIATRIC: [Mood and affect appropriate]. LABORATORY DATA: See below. IMAGING: [CXR: FINDINGS: The technique utilized in obtaining the radiograph has magnified the cardiac silhouette and accentuated the interstitial markings. The cardiomediastinal silhouette lung bullock are unchanged. There is mild cardiomegaly accentuated by technique. There is evidence of interstitial fibrotic change. There are no acute patchy parenchymal opacities or pleural effusions. IMPRESSION: There is no acute cardiopulmonary disease. The exam is limited. Repeat exam is recommended without apical lordotic technique. Head CT: FINDINGS: The ventricles and sulci are unchanged. There are no acute extra-axial fluid collections. There is no shift of the midline structures. The deep white matter is unchanged. The posterior fossa is unchanged. The skull and paranasal sinuses are unchanged. IMPRESSION: There is no evidence of acute intracranial pathology or significant change compared to the prior exam. CT Abd/pelvis: FINDINGS: Diaphragm: A small sliding hiatal hernia is present. Liver: There are hypodense hepatic masses demonstrated, the largest located in segment 2 of the left lobe of the liver demonstrating multiple punctate calcifications. 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 Hepatomegaly. Gallbladder and bile ducts: Normal. No calcified stones. No ductal dilation. Pancreas: Visible nondilated pancreatic duct. Pancreas otherwise appears unremarkable. Spleen: Normal. No splenomegaly. Adrenal glands: Normal. No mass. Kidneys and ureters: Multiple bilateral simple renal cysts measure up to 10 cm in the inferior aspect of the left kidney. Also noted are several probable hyperdense cysts in both the right and left kidneys measuring up to 2.1 cm. Confirmation with nonemergent renal ultrasound could be obtained if clinically desired. Stomach and bowel: There is increased feces throughout the colon consistent with constipation. There is mild dilatation of the proximal colon. There is a large mass likely arising from the rectosigmoid colon filling much of the deep central pelvis measuring approximately 6.5 x 7.2 x 6.9 cm. Findings consistent with a locally invasive distal colonic neoplasm. Impression Appendix: No evidence of appendicitis. Intraperitoneal space: Unremarkable. No free air. No significant fluid collection. Vasculature: The aortoiliac vessels demonstrate moderate atherosclerotic calcification. There is an infrarenal focal abdominal aortic aneurysm measuring 3.3 cm maximum transverse dimensions extending craniocaudad for 4 cm. Lymph nodes: Unremarkable. No enlarged lymph nodes. Urinary bladder: Unremarkable as visualized. Reproductive: The prostate gland demonstrates moderate hyperplasia. Bones/joints: [id number] central spinal stenosis L2-L3, moderate central spinal stenosis L3-L4, moderate to severe central spinal stenosis L4-L5. Bulging annulus L5-S1. Osteoporosis. Soft tissues: 9.7 mm soft tissue nodule posterior aspect right lower lobe not demonstrated on the prior examination of 04/08/2019. Other findings: Cachexia. IMPRESSION: 1. 9.7 mm soft tissue nodule posterior aspect right lower lobe not demonstrated on the prior examination of 04/08/2019. Considering the other findings described in this report the lesion is worrisome for a metastasis. 2. There are hypodense hepatic masses demonstrated, the largest located in segment 2 of the left lobe of the liver demonstrating multiple punctate calcifications. 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 3. A small sliding hiatal hernia is present. 4. Multiple bilateral simple renal cysts measure up to 10 cm in the inferior aspect of the left kidney. Also noted are several probable hyperdense cysts in both the right and left kidneys measuring up to 2.1 cm. Confirmation with nonemergent renal ultrasound could be obtained if clinically desired. 5. There is increased feces throughout the colon consistent with constipation. There is mild dilatation of the proximal colon. 6. Moderate prostatic hyperplasia. 7. Cachexia. 8. Infrarenal abdominal aortic aneurysm. ] MICROBIOLOGY: Please see below. ASSESSMENT: [Patient is a somewhat poor historian secondary to suspected mild c ognitive impairment. This is a 75 y/o male with a pmh of copd 3L o2 dependent, hfpef, paroxysmal a-fib not on anticoagulation, inoperable colorectal ca, lung ca, duodenal ulcer with perforation, schizophrenia who was brought to ED by home health nurse after being found soiled and weak. Per chart review, patient was diagnosed with his colorectal ca at some point last year and was deemed a surgical candidate by surgeon at that time and it does not seem as though he has performed any outpatient treatment. It seems as though hospice was pursued at some point but fell through d/t patient wishes. P atient himself was not aware of his cancer when I prompted him about it. Patient tells me he wishes to pursue full treatment of his colorectal cancer. Patient found to be acutely anemic in the ED with hbg of 6.5 CT abdomen performed showing large colorectal mass with most likely mets to liver. ]. . PLAN: 1. [Anemia most likely 2/2 bleeding colorectal mass - Patient is a somewhat poor historian, as he was not aware of his own cancer diagnosis that was diagnosed and worked up last year. Patient deemed inoperable at that time. New mets to liver found today on ct abd. Recommend reaching out to family in the am for full story. Patient himself requesting full treatment. Day team can consider oncology consult if deemed appropriate. - In the meantime, will treat patient acutely - Hgb 6.5 upon presentation - 2u prbc ordered - stool occult ordered - iv protonix, achs carafate - zofran for nausea - telemetry - admit to med surg for tx 2. Debility - Patient lives by himself with visiting family and home health nursing - Will place pfs consult as patient seems to have issues caring for himself without 24/7 support 3. Constipation - patient himself complains of diarrhea, however ct scan indicative of large stool burden - gi panel - bowel regimen ordered 4. Dysuria - ua ordered 5. COPD - not in acute exacerbation - continue chronic 3L nasal canula - continue albuterol rescue inhaler 6. Schizophrenia - continue zyprex, sertraline 7. Paroxysmal a-fib - pt in sinus rhythm in ed - tele DVT prophylaxis - mechanical d/t bleed]. Vital Signs Vital Signs Date Time Temp Pulse Resp B/P (MAP) Pulse Ox O2 Delivery O2 Flow Rate FiO2 01/13/21 20:30 83 16 148/69 (95) Nasal Cannula 3.0 01/13/21 19:30 100 Laboratory Data Labs 24H Laboratory Tests 2 01/13/21 14:45: Immature Granulocyte % (Auto) 0.9, Neutrophils (%) (Auto) 83.2H, Lymphocytes (%) (Auto) 9.1L, Monocytes (%) (Auto) 6.0, Eosinophils (%) (Auto) 0.5, Basophils (%) (Auto) 0.3, Neutrophils # (Auto) 6.6, Lymphocytes # (Auto) 0.7L, Monocytes # (Auto) 0.5, Eosinophils # (Auto) 0.0, Basophils # (Auto) 0.0, Nucleated Red Blood Cells % (auto) 0.0, Anion Gap 2L, Glomerular Filtration Rate > 60.0, Calcium Level 8.1L, Total Bilirubin 0.2, Direct Bilirubin < 0.1, Aspartate Amino Transf (AST/SGOT) 24, Alanine Aminotransferase (ALT/SGPT) 22, Alkaline Phosphatase 95, Total Creatine Kinase 47, Creatine Kinase MB 4.0H, Creatine Kinase MB Relative Index 8.51H, Troponin I High Sensitivity 20.0, Total Protein 6.9, Albumin 2.2L, Albumin/Globulin Ratio 0.5, Thyroid Stimulating Hormone (TSH) 1.760, Salicylates Level < 1.7L, Acetaminophen Level < 2.0L, Ethyl Alcohol Level < 0.003 01/13/21 17:04: Coronavirus (COVID-19)(PCR) NEGATIVE, Influenza Type A (RT-PCR) NEGATIVE, Influenza Type B (RT-PCR) NEGATIVE, Respiratory Syncytial Virus (PCR) NEGATIVE 01/13/21 22:07: CBC/BMP Laboratory Tests 01/13/21 14:45 Home Medications Scheduled Olanzapine (Olanzapine) 7.5 Mg Tablet, 7.5 MG PO QHS Sertraline Hcl (Sertraline HCl) 50 Mg Tablet, 50 MG PO DAILY Scheduled PRN Albuterol Sulfate (Ventolin Hfa) 18 Gm Hfa.aer.ad, 2 PUFFS INH QID PRN for SOB/WHEEZING Allergies Coded Allergies: No Known Allergies (Unverified , 10/31/18) A-FIB/CHADSVASC A-FIB History Current/History of A-Fib/PAF?: Yes Current PO Anticoag Therapy: No EDITH PALACIOS Jan 13, 2021 22:39
--- OUTSIDE RECORDS SUMMARY | 2021-01-13 22:48 | CCD ---
Author Author [facility] Organization [facility] Address Unknown Phone Unavailable Care Team Providers Care Novelty Maker Name Role Phone Dahlia David MD Unavailable [...] Dahlia Talley MD Unavailable Unavailable Cachorro, Yumiko HAND TUFTER HAND TUFTER Unavailable Unavailable Cachorro, A Yumiko HAND TUFTER Unavailable Unavailable Cachorro, A Yumiko HAND TUFTER Unavailable Unavailable Cachorro, A Yumiko HAND TUFTER Unavailable Unavailable Cachorro, A Yumiko HAND TUFTER Unavailable Unavailable Cachorro, A Yumiko HAND TUFTER Unavailable Unavailable Cachorro, A Yumiko HAND TUFTER Unavailable Unavailable Cachorro, A Yumiko HAND TUFTER Unavailable Unavailable Cachorro, A Yumiko HAND TUFTER Unavailable Unavailable Cachorro, A Yumiko HAND TUFTER Unavailable Unavailable Cachorro, A Yumiko HAND TUFTER Unavailable Unavailable Cachorro, A Yumiko HAND TUFTER Unavailable Unavailable Cachorro, A Yumkio HAND TUFTER Unavailable Unavailable Cachorro, A Yumiko HAND TUFTER Unavailable Unavailable Cachorro, A Yumiko HAND TUFTER Unavailable Unavailable Cachorro, A Yumiko HAND TUFTER Unavailable Unavailable Cachorro, A Yumiko HAND TUFTER Unavailable Unavailable Cachorro, A Yumiko HAND TUFTER Unavailable Unavailable Cachorro, A Yumiko HAND TUFTER Unavailable Unavailable Cachorro, A Yumiko HAND TUFTER Unavailable Unavailable Cachorro, A Yumiko HAND TUFTER Unavailable Unavailable Cachorro, A Yumiko HAND TUFTER Unavailable Unavailable Cachorro, A Yumiko HAND TUFTER Unavailable Unavailable Cachorro, A Yumiko HAND TUFTER Unavailable Unavailable Cachorro, A Yumiko HAND TUFTER Unavailable Unavailable Cachorro, A Yumiko HAND TUFTER Unavailable Unavailable Cachorro, A Yumiko HAND TUFTER Unavailable Unavailable Cachorro, A Yumiko HAND TUFTER Unavailable Unavailable Cachorro, A Yumiko HAND TUFTER Unavailable Unavailable Cachorro, A Yumiko HAND TUFTER Unavailable Unavailable Cachorro, A Yumiko HAND TUFTER Unavailable Unavailable Cachorro, A Yumiko HAND TUFTER Unavailable Unavailable Re-disclosure Warning The records that [...] is protected by Article 27-F of the [facility] Public Health law. If you continue you may have access to information: Regarding HIV / AIDS; Provided by facilities licensed or operated by the [facility] Office of Mental Health; or Provided by the [facility] Office for People With Developmental Disabilities. If such information is present, then the following [facility] mandated warning applies: This information has been [...] law may result in a fine or residential sentence or both. A general authorization for the release of medical or other information is NOT sufficient authorization for further disc losure. Family History Family Member Name Family Member Gender Family Member Status Date o f Status Description Data Source(s) Unknown Unknown Problem [facility] ([facility]) Unknown Female Encounters Encounter Providers Location Date Indications Data Source(s ) Mayank David MD: [address] [place] [phone], Ph. Attender: Maynak David MD [facility] Medical 07/09/2020 12:00:00 AM EDT [place] ([facility]) Outpatient Attender: DANNY DELGADO 12/02/2019 03:09:01 P M EDT [facility] Outpatient Attender: Yumiko DELGADO 12/02/2019 03:0 9:00 PM EDT [facility] Outpatient Attender: Yumiko DELGADO 11/18/2019 07:0 3:03 PM EDT [facility] Outpatient Attender: DANNY DEL ROSARIO 11/18/2019 07:03:02 P M EDT [facility] Outpatient Attender: DANNY DEL ROSARIO 11/17/2019 07:48:03 A M EDT [facility] Outpatient Attender: Yumiko DEL ROSARIO 11/17/2019 07:4 8:01 AM EDT [facility] Outpatient Attender: DANNY DEL ROSARIO 11/15/2019 02:28:00 P M EDT [facility] Immunizations Vaccine Date Status Description Data Source(s) COVID-19 VACCINE Moderna 05/15/2020 12:00:00 AM EDT completed [facility] Vaccine Series Complete: YESThis Data wa s Submitted to [facility] Via [employer]. COVID-19 VACCINE Moderna 04/17/2020 12:00:00 AM EST completed [facility] Vaccine Series Complete: NOThis Data was Submitted to [facility] Via [employer]. Medications Medication Brand Name Start Date Product [...] 325 MG Delayed Release Oral Tablet [place] ([facility]) Levetiracetam 500 MG Oral Tablet levetiracetam 500 mg tablet levetiracetam 500 mg tablet completed levetiraceta m 500 MG Oral Tablet [place] ([facility]) Atenolol 25 MG Oral Tablet atenolol 25 m g tablet TAKE ONE TABLET BY MOUTH TWICE A DAY atenolol 25 mg tablet TAKE ONE TABLET BY MOUTH TWICE A DAY completed atenolol 25 MG Oral Tablet [facility] ([facility]) olanzapine 15 MG Oral Tablet olanzapine 15 mg tablet olanzapine 15 mg tablet completed olanzapine 15 MG Oral Tablet [place] ([facility]) Atenolol 50 MG Oral Tablet atenolol 50 mg tablet atenolol 50 mg tablet completed atenolol 50 MG Oral Table t [place] ([facility]) torsemide 10 MG Oral Tablet torsemide 10 mg tablet torsemide 10 mg ta blet completed torsemide 10 MG Oral Tablet [place] ([facility]) Amiodarone hydrochloride 200 MG Oral Tablet amiodarone 200 mg tablet amiodarone 200 mg tablet completed amiodarone hydrochloride 200 MG Oral Tablet [place] ([facility]) Klor-Con M10 mEq tablet,extended release TAKE 1 TABLET BY MOUTH ONCE DAILY [id number] completed Microen capsulated potassium chloride 10 MEQ Extended Release Oral Tablet [Klor-Con] [place] ([facility]) Digoxin 0.125 MG Oral Tablet digoxin 125 mcg (0.125 mg ) tablet digoxin 125 mcg (0.125 mg) tablet completed digo yessy 0.125 MG Oral Tablet [place] ([facility]) Thera-M 9 mg iron-400 mcg tablet TAKE ON E TABLET BY MOUTH EVERY DAY FOR SUPPLEMENT [id number] completed Ther a-M 9 mg iron-400 mcg tablet [place] ([facility]) Lisinopril 20 MG Oral Tablet lisinopril 20 mg tablet lisinopril 20 mg tablet completed lisinopril 20 MG Oral Tablet [place] ([facility]) Fluticasone propionate 0.5 MG/ACTUAT / s almeterol 0.05 MG/ACTUAT Dry Powder Inhaler fluticasone 500 mcg-salmeterol 50 mcg/dose blistr powdr for inhalation fluticasone 500 mcg-salmeterol 50 mcg/dose blistr powdr for inhalation completed fluticasone pro pionate 0.5 MG/ACTUAT / salmeterol 0.05 MG/ACTUAT Dry Powder Inhaler [place] ([facility]) Tamsulosin hydrochloride 0.4 MG Oral Cap kimberly tamsulosin 0.4 mg capsule Take 1 capsule every day by oral route. tamsulosin 0.4 mg capsule Take 1 capsule every day by oral route. 1 capsule(s) completed tamsulosin hydrochloride 0.4 MG Oral Capsule [place] ([facility]) Folic Acid 1 MG Oral Tablet folic acid 1 mg tablet Take 1 tablet every day by oral route. folic acid 1 mg tablet Take 1 tablet every day by oral route. 1 completed folic acid 1 MG Oral Tablet [place] ([facility]) Levalbuterol 0.417 MG/ML Inhalant Soluti on levalbuterol 1.25 mg/3 mL solution for nebulization levalbuterol 1.25 mg/3 mL solution for nebulization completed levalbuterol 0.417 MG/ML Inh alation Solution [place] ([facility]) tiotropium 0.018 MG/ACTUAT Inhalant Powd er [Spiriva] Spiriva with HandiHaler 18 mcg and inhalation capsules INHALE 1 PUFF BY MOUTH ONCE DAILY Spiriva with HandiHaler 18 mcg and inhalation capsules INHALE 1 PUFF BY MOUTH ONCE DAILY completed tiotropium 0.018 MG In halation Powder [Spiriva] [place] ([facility]) Furosemide 20 MG Oral Tablet furosemide 20 mg tablet furosemide 20 mg tablet completed furosemide 20 MG Oral Tablet [place] ([facility]) 24 HR metoprolol succinate 25 MG Extende d Release Oral Tablet metoprolol succinate ER 25 mg tablet,extended release 24 hr metoprolol succinate ER 25 mg tablet,extended release 24 hr complete d 24 HR metoprolol succinate 25 MG Extended Release Oral Tablet [place] ([facility]) pantoprazole 40 MG Delayed Release Oral Tablet pantoprazole 40 mg tablet,delayed release pantoprazole 40 mg tablet,delayed release completed pantoprazole 40 MG Delayed Release Oral Tablet [place] ([facility]) benzonatate 100 MG Oral Capsule benzonat ate 100 mg capsule TAKE TWO CAPSULES BY MOUTH THREE TIMES A DAY NEEDED FOR COUGH benzonatate 100 mg capsule TAKE TWO CAPSULES BY MOUTH THREE TIMES A DAY NEEDED FOR COUGH completed benzonatate 100 MG Oral Capsule [facility] ([facility]) cefprozil 500 MG Oral Tablet cefprozil 500 mg tablet cefprozil 5 00 mg tablet completed cefprozil 500 MG Oral Tablet [facility]) atorvastatin 20 MG Oral Tablet atorvastatin 20 mg tabl et atorvastatin 20 mg tablet completed atorvastatin 20 MG Oral Tablet [facility]) 200 ACTUAT Levalbuterol 0.045 MG/ACTUAT Metered Dose Inhaler levalbuterol HFA 45 mcg/actuation aerosol inhaler levalbuterol HFA 45 mcg/actuation aeroso l inhaler completed 200 ACT UAT levalbuterol 0.045 MG/ACTUAT Metered Dose Inhaler [facility]) atorvastatin 10 MG Oral Tablet atorvasta tin 10 mg tablet Take 1 tablet every day by oral route at bedtime. atorvastatin 10 mg tablet Take 1 tablet every day by oral route at bedtime. 1 completed atorvastatin 10 MG Oral Tablet [place] ([facility]) Levetiracetam 250 MG Oral Tablet levetiracetam 250 mg tablet levetiracetam 250 mg tablet completed levetiraceta m 250 MG Oral Tablet [facility]) Magnesium Oxide 400 MG Oral Tablet magne sium oxide 400 mg (241.3 mg magnesium) tablet Take 1 tablet every day by oral route. magnesium oxide 400 mg (241.3 mg magnesium) tablet Take 1 tablet every day by oral route. 1 completed magnesium oxide 400 MG Oral Tablet [facility] ([facility]) Levofloxacin 750 MG Oral Tablet levofloxacin 750 mg ta blet levofloxacin 750 mg tablet completed levofloxacin 75 0 MG Oral Tablet [place] ([facility]) Levothyroxine Sodium 0.05 MG Oral Tablet levothyroxine 50 mcg tablet levothyroxine 50 mcg tablet completed levothyroxine sodium 0.05 MG Oral Tablet [place] ([facility]) Sucralfate 1000 MG Oral Tablet sucralfate 1 gram table t sucralfate 1 gram tablet completed sucralfate 1000 MG Oral Tablet [place] ([facility]) Prednisone 10 MG Oral Tablet prednisone 10 mg tablet prednisone 10 mg tablet completed prednisone 10 MG Oral Tablet [place] ([facility]) Insurance Providers Payer name Policy type / Coverage type Policy ID Covered democrat ID Covered democrat's relationship to voss Policy Voss Plan Information MEDICARE A [id number] Self [id number] A MEDICARE COMPLETE [id number] SP [id number] MEDICARE BLUE PPO [id number] SP [id number] MEDICARE [id number] SP [id number] A MEDICARE A [id number] Self [id number] A Medicare P [id number] S [id number] A Medicare P [id number] S [id number] A Medicare S [id number] S [id number] A [employer]LL[employer] MEDICARE BLUE PPO G [id number] Self [id number] MEDICARE BLUE PPO 306 [id number] SP [id number] MEDICARE BLUE PPO 306 [id number] SP [id number] Medicare Medicare Primary [id number] Self Medicare P [id number] S [id number] MEDICARE -O/P [id number] 18 [id number] MEDICARE [id number] SP [id number] Excell[employer] BCBS Medicare Advantage P [id number] S [id number] Medicare S [id number] S [id number] A BLUE CROSS BLUE SHIELD MCR -OP [id number] 18 [id number] [employer] BCBS B [id number] S VYM [id number] BLUE CROSS BLUE SHIELD MCR -PROFEE [id number] 18 [id number] MEDICARE [id number] SP [id number] A [employer] BCBS B [id number] S VYM [id number] [employer] BCYO P [id number] S VYM [id number] BS Medicare Ppo Commercial [id number] Self MEDICARE C [id number] S [id number] A Problems, Conditions, and Diagnoses Code Display Name Description Problem Type Effective Dates Data Source(s) 979929125 SNOMED CT Concept SNOMED CT Concept Problem 11/29 04:44:04 PM EDT [place] ([facility]) [id number] Hypertensive disorder Hypertensive Disorder Problem 11/30/2019 04:44:04 PM EDT [place] ([facility]) [id number] Depressive disorder Depressive Disorder Problem 1 04:44:04 PM EDT [place] ([facility]) I26.09 Other pulmonary embolism with acute cor pulmonale Other pulmonary embolism with acute cor pulmonale 11/17/2019 07:47:28 AM EDT [facility] [id number] Acute embolism and thrombosis of unspeci fied calf muscular vein Acute embolism and thrombosis of unspecified calf muscular vein 11/17/2019 07:47:28 AM EDT [facility] C20 Malignant neoplasm of rectum Malignant tumor of rectum 11/17/2019 07:47:28 AM EDT [facility] [id number] Embolism from thrombosis of vein of dist al lower extremity Embolism from Thrombosis of Vein of Distal Lower Extremity Problem 02/2019 12:00:00 AM EDT [place] ([facility]) [id number] Acute deep vein thrombosis of lower limb Acute Deep Vein Thrombosis of Lower Limb Problem 11/16/2019 12:00:00 AM EDT [place] ([facility]) [id number] Acute cor pulmonale Acute Cor Pulmonale Problem 1 12:00:00 AM EDT [place] ([facility]) [id number] Malignant tumor of rectum Malignant Tumor of Rectum Pr oblem 11/16/2019 12:00:00 AM EDT [place] ([facility]) Surgeries/Procedures No Information Results ID Date Data Source [id number] 12/15/2019 04:41:00 AM EDT [place] ([facility]) Name Value Range Interpretation Code Description Data Faith rce(s) Supporting Document(s) magnesium level 2.1 mg/dL 1.8-2.4 Magnesium Level [facility] NA ([facility]) ID Date Data Source [id number] 12/15/2019 04:41:00 AM EDT [place] ([facility]) Name Value Range Interpretation Code Description Data Faith rce(s) Supporting Document(s) glucose, fasting 89 mg/dL 70-100 Glucose, Fasting AT [facility] ([facility]) creatinine for GFR 0.81 mg/dL 0.70-1.30 Creatinine for GF R [place] ([facility]) blood urea nitrogen 18 mg/dL 7-18 Blood Urea Nitro gen [place] ([facility]) glomerular filtration rate > 60.0 >42 Glomerula r Filtration Rate [place] ([facility]) sodium level 143 mEq/L 136-145 Sodium Level [place] ([facility]) potassium serum 4.3 mEq/L 3.5-5.1 Potassium Serum [facility] ([facility]) carbon dioxide level 41 mEq/L 21-32 Above high normal Carbon D ioxide Level [place] ([facility]) chloride level 101 mEq/L 98-107 Chloride Level [place] ([facility]) anion gap 1 mEq/L 8-16 Below low normal Anion Gap [place] ( [facility]) calcium level 7.7 mg/dL 8.8-10.2 Below low normal Calcium Level AT [facility] ([facility]) ID Date Data Source [id number] 12/15/2019 04:41:00 AM EDT [place] ([facility]) Name Value Range Interpretation Code Description Data Faith rce(s) Supporting Document(s) white blood count 7.9 10 4.0-10.0 White Blood Count [place] ([facility]) red blood count 2.92 10 4.30-6.10 Below low normal Red Blood Coun t [place] ([facility]) hemoglobin 8.6 g/dL 13.5-17.5 Below low normal Hemoglobin [place] ( [facility]) hematocrit 30.0 % 42.0-52.0 Below low normal Hematocrit [place] ( [facility]) mean corpuscular volume 102.7 fL 80.0-96.0 Above high normal Mean Corpuscular Volume [facility] ([facility]) mean corpuscular hemoglobin 29.5 pg 27.0-33.0 Mean Cor puscular Hemoglobin [facility] ([facility]) mean corpuscular HGB conc 28.7 g/dL 32.0-36.5 Below low chinmay l Mean Corpuscular HGB Conc [place] ([facility]) red cell distribution width 16.4 % 11.5-14.5 Above high no rmal Red Cell Distribution Width [place] ([facility]) platelet count, automated 178 10 150-450 Platelet C ount, Automated [place] ([facility]) neutrophils % 78.7 % 36.0-66.0 Above high normal Neutrophils % [facility] [place] ([facility]) lymph % 9.0 % 24.0-44.0 Below low normal Lymph % [place] ( [facility]) eos % 0.6 % 0.0-3.0 Eos % [place] ([facility]) mono % 9.5 % 0.0-5.0 Above high normal [place] % [place] ([facility]) baso % 0.5 % 0.0-1.0 Baso % [place] ([facility]) nucleated red blood cell % 0.0 % 0-0 Nucleated Red Blood Cell % [place] ([facility]) immature granulocyte % 1.7 % 0-3.0 Immature Gran ulocyte % [place] ([facility]) neutrophils # 6.2 10 1.5-8.5 Neutrophils # [place] ( [facility]) lymph # 0.7 10 1.5-5.0 Below low normal Lymph # [place] ( [facility]) mono # 0.8 10 0.0-0.8 [place] # [place] ([facility]) eos # 0.1 10 0.0-0.5 Eos # [place] ([facility]) baso # 0.0 10 0.0-0.2 Baso # [place] ([facility]) ID Date Data Source [id number] 12/14/2019 05:00:00 AM EDT [facility]) Name Value Range Interpretation Code Description Data Faith rce(s) Supporting Document(s) magnesium level 2.0 mg/dL 1.8-2.4 [facility] ID Date Data Source [id number] 12/14/2019 05:00:00 AM EDT [place] ([facility]) Name Value Range Interpretation Code Description Data Faith rce(s) Supporting Document(s) glucose, fasting 76 mg/dL 70-100 Glucose, Fasting AT [facility]) blood urea nitrogen 17 mg/dL 7-18 Blood Urea Nitro gen [place] ([facility]) creatinine for GFR 0.74 mg/dL 0.70-1.30 Creatinine for GF R [place] ([facility]) glomerular filtration rate > 60.0 >42 Glomerula r Filtration Rate [place] ([facility]) sodium level 143 mEq/L 136-145 Sodium Level [place] ([facility]) potassium serum 4.5 mEq/L 3.5-5.1 Potassium Serum [facility] ([facility]) chloride level 102 mEq/L 98-107 Chloride Level [place] ([facility]) anion gap 0 mEq/L 8-16 Below low normal Anion Gap [place] ( [facility]) carbon dioxide level 41 mEq/L 21-32 Above high normal Carbon D ioxide Level [facility]) calcium level 7.7 mg/dL 8.8-10.2 Below low normal Calcium Level AT [facility] ([facility]) ID Date Data Source [id number] 12/14/2019 05:00:00 AM EDT [place] ([facility]) Name Value Range Interpretation Code Description Data Faith rce(s) Supporting Document(s) white blood count 9.8 10 4.0-10.0 White Blood Count [place] ([facility]) red blood count 3.06 10 4.30-6.10 Below low normal Red Blood Coun t [facility] ([facility]) hemoglobin 9.0 g/dL 13.5-17.5 Below low normal Hemoglobin [facility] ( [facility]) mean corpuscular volume 101.0 fL 80.0-96.0 Above high normal Mean Corpuscular Volume [facility] ([facility]) hematocrit 30.9 % 42.0-52.0 Below low normal Hematocrit [facility] ( [facility]) mean corpuscular hemoglobin 29.4 pg 27.0-33.0 Mean Cor puscular Hemoglobin [facility] ([facility]) mean corpuscular HGB conc 29.1 g/dL 32.0-36.5 Below low chinmay l Mean Corpuscular HGB Conc [facility] ([facility]) red cell distribution width 16.6 % 11.5-14.5 Above high no rmal Red Cell Distribution Width [facility] ([facility]) neutrophils % 84.2 % 36.0-66.0 Above high normal Neutrophils % A [facility] ([facility]) platelet count, automated 173 10 150-450 Platelet C ount, Automated [place] ([facility]) lymph % 5.4 % 24.0-44.0 Below low normal Lymph % [facility] ( [facility]) eos % 0.3 % 0.0-3.0 Eos % [place] ([facility]) mono % 8.7 % 0.0-5.0 Above high normal [place] % [place] ([facility]) immature granulocyte % 1.2 % 0-3.0 Immature Gran ulocyte % [facility] ([facility]) baso % 0.2 % 0.0-1.0 Baso % [place] ([facility]) neutrophils # 8.2 10 1.5-8.5 Neutrophils # [place] ( [facility]) nucleated red blood cell % 0.0 % 0-0 Nucleated Red Blood Cell % [place] ([facility]) mono # 0.9 10 0.0-0.8 Above high normal [place] # [place] ([facility]) lymph # 0.5 10 1.5-5.0 Below low normal Lymph # [place] ( [facility]) eos # 0.0 10 0.0-0.5 Eos # [place] ([facility]) baso # 0.0 10 0.0-0.2 Baso # [place] ([facility]) ID Date Data Source [id number] 12/12/2019 04:06:00 PM EDT [place] ([facility]) Name Value Range Interpretation Code Description Data Faith rce(s) Supporting Document(s) white blood count 10.9 10 4.0-10.0 Above high normal White Blood Count [place] ([facility]) red blood count 2.96 10 4.30-6.10 Below low normal Red Blood Coun t [place] ([facility]) hemoglobin 8.8 g/dL 13.5-17.5 Below low normal Hemoglobin [place] ( [facility]) hematocrit 30.2 % 42.0-52.0 Below low normal Hematocrit [place] ( [facility]) mean corpuscular hemoglobin 29.7 pg 27.0-33.0 Mean Cor puscular Hemoglobin [place] ([facility]) mean corpuscular volume 102.0 fL 80.0-96.0 Above high normal Mean Corpuscular Volume [place] ([facility]) red cell distribution width 17.8 % 11.5-14.5 Above high no rmal Red Cell Distribution Width [place] ([facility]) mean corpuscular HGB conc 29.1 g/dL 32.0-36.5 Below low chinmay l Mean Corpuscular HGB Conc [place] ([facility]) nucleated red blood cell % 0.0 % 0-0 Nucleated Red Blood Cell % [place] ([facility]) platelet count, automated 166 10 150-450 Platelet C ount, Automated [place] ([facility]) ID Date Data Source [id number] 12/12/2019 05:33:00 AM EDT [place] ([facility]) Name Value Range Interpretation Code Description Data Faith rce(s) Supporting Document(s) white blood count 11.2 10 4.0-10.0 Above high normal White Blood Count [facility] ([facility]) red blood count 2.32 10 4.30-6.10 Below low normal Red Blood Coun t [place] ([facility]) hematocrit 24.3 % 42.0-52.0 Below low normal Hematocrit [facility] ( [facility]) hemoglobin 6.8 g/dL 13.5-17.5 Below low normal Hemoglobin [facility] ( [facility]) mean corpuscular volume 104.7 fL 80.0-96.0 Above high normal Mean Corpuscular Volume [place] ([facility]) mean corpuscular hemoglobin 29.3 pg 27.0-33.0 Mean Cor puscular Hemoglobin [facility] ([facility]) mean corpuscular HGB conc 28.0 g/dL 32.0-36.5 Below low chinmay l Mean Corpuscular HGB Conc [facility] ([facility]) red cell distribution width 16.9 % 11.5-14.5 Above high no rmal Red Cell Distribution Width [facility] ([facility]) platelet count, automated 198 10 150-450 Platelet C ount, Automated [place] ([facility] [facility]) nucleated red blood cell % 0.0 % 0-0 Nucleated Red Blood Cell % [place] ([facility]) ID Date Data Source [id number] 12/12/2019 05:32:00 AM EDT [place] ([facility]) Name Value Range Interpretation Code Description Data Faith rce(s) Supporting Document(s) magnesium level 2.0 mg/dL 1.8-2.4 Magnesium Level ATHE NA ([facility]) ID Date Data Source [id number] 12/12/2019 05:32:00 AM EDT [facility]) Name Value Range Interpretation Code Description Data Faith rce(s) Supporting Document(s) glucose, fasting 98 mg/dL 70-100 Glucose, Fasting AT [facility]) blood urea nitrogen 21 mg/dL 7-18 Above high normal Blood Ure a Nitrogen [place] ([facility]) creatinine for GFR 1.03 mg/dL 0.70-1.30 Creatinine for GF R [place] ([facility]) glomerular filtration rate > 60.0 >42 Glomerula r Filtration Rate [place] ([facility]) sodium level 143 mEq/L 136-145 Sodium Level [place] (No [facility]) chloride level 101 mEq/L 98-107 Chloride Level [place] ([facility]) potassium serum 4.6 mEq/L 3.5-5.1 Potassium [facility] carbon dioxide level 42 mEq/L 21-32 Above high normal Carbon D ioxide Level [place] ([facility]) anion gap 0 mEq/L 8-16 Below low normal Anion Gap [place] ( [facility]) calcium level 7.8 mg/dL 8.8-10.2 Below low normal Calcium Level AT [facility] ([facility]) ID Date Data Source [id number] 12/11/2019 06:42:00 PM EDT [place] ([facility]) Name Value Range Interpretation Code Description Data Faith rce(s) Supporting Document(s) CPK creatine phosphokinase 29 U/L 39-308 Below low norm al CPK Creatine Phosphokinase [place] ([facility]) mb/CK relative index < or =4 Above high normal mb/CK Re lative Index [place] ([facility]) troponin I < 0.02 < 0.10 Troponin I [place] ([facility]) CK-mb value mass 2.8 NG/mL <3.6 CK-mb Value Mass AT [facility]) ID Date Data Source [id number] 12/11/2019 10:56:00 AM EDT [facility]) Name Value Range Interpretation Code Description Data Faith rce(s) Supporting Document(s) thyroid stimulating hormone 6.510 uIU/mL 0.358-3.740 Above high no rmal Thyroid Stimulating Hormone [facility]) ID Date Data Source [id number] 12/11/2019 10:56:00 AM EDT [facility]) Name Value Range Interpretation Code Description Data Faith rce(s) Supporting Document(s) digoxin level 0.4 NG/mL 0.5-2.0 Below low normal Digoxin Level AT [facility]) ID Date Data Source [id number] 12/11/2019 10:56:00 AM EDT [facility]) Name Value Range Interpretation Code Description Data Faith rce(s) Supporting Document(s) glucose, fasting 86 mg/dL 70-100 Glucose, Fasting AT [facility]) blood urea nitrogen 18 mg/dL 7-18 Blood Urea Nitro gen [place] ([facility]) glomerular filtration rate > 60.0 >42 Glomerula r Filtration Rate [place] ([facility]) creatinine for GFR 1.02 mg/dL 0.70-1.30 Creatinine for GF R [place] ([facility]) sodium level 143 mEq/L 136-145 Sodium Level [place] ([facility]) potassium serum 4.5 mEq/L 3.5-5.1 Potassium Serum ATH NA [facility]) carbon dioxide level 43 mEq/L 21-32 Above high normal Carbon D ioxide Level [place] ([facility]) chloride level 101 mEq/L 98-107 Chloride Level [facility]) calcium level 8.1 mg/dL 8.8-10.2 Below low normal Calcium Level AT [place] ([facility]) ID Date Data Source [id number] 12/11/2019 10:56:00 AM EDT [place] ([facility]) Name Value Range Interpretation Code Description Data Faith rce(s) Supporting Document(s) white blood count 10.0 10 4.0-10.0 White Blood Count [place] ([facility]) hemoglobin 8.8 g/dL 13.5-17.5 Below low normal Hemoglobin [place] ( [facility]) red blood count 2.99 10 4.30-6.10 Below low normal Red Blood Coun t [place] ([facility]) mean corpuscular volume 105.4 fL 80.0-96.0 Above high normal Mean Corpuscular Volume [place] ([facility]) hematocrit 31.5 % 42.0-52.0 Below low normal Hematocrit [place] ( [facility]) mean corpuscular HGB conc 27.9 g/dL 32.0-36.5 Below low chinmay l Mean Corpuscular HGB Conc [place] ([facility]) mean corpuscular hemoglobin 29.4 pg 27.0-33.0 Mean Cor puscular Hemoglobin [place] ([facility]) platelet count, automated 229 10 150-450 Platelet C ount, Automated [place] ([facility]) red cell distribution width 17.2 % 11.5-14.5 Above high no rmal Red Cell Distribution Width [place] ([facility]) lymph % 5.4 % 24.0-44.0 Below low normal Lymph % [place] ( [facility]) neutrophils % 87.2 % 36.0-66.0 Above high normal Neutrophils % A [place] ([facility]) eos % 0.3 % 0.0-3.0 Eos % [place] ([facility]) mono % 5.8 % 0.0-5.0 Above high normal [place] % [place] ([facility]) baso % 0.5 % 0.0-1.0 Baso % [place] ([facility]) nucleated red blood cell % 0.0 % 0-0 Nucleated Red Blood Cell % [place] ([facility]) immature granulocyte % 0.8 % 0-3.0 Immature Gran ulocyte % [place] ([facility]) neutrophils # 8.7 10 1.5-8.5 Above high normal Neutrophils # A [place] ([facility]) lymph # 0.5 10 1.5-5.0 Below low normal Lymph # [place] ( [facility]) mono # 0.6 10 0.0-0.8 [place] # [place] ([facility]) eos # 0.0 10 0.0-0.5 Eos # [place] ([facility]) baso # 0.1 10 0.0-0.2 Baso # [place] ([facility]) ID Date Data Source [id number] 12/11/2019 10:55:00 AM EDT [place] ([facility]) Name Value Range Interpretation Code Description Data Faith rce(s) Supporting Document(s) packed cells transfused product: packed cells count: 2 Packed Cells [place] ([facility]) ID Date Data Source [id number] 12/11/2019 10:55:00 AM EDT [facility]) Name Value Range Interpretation Code Description Data Faith rce(s) Supporting Document(s) Ab screen (indirect alfreda)vis negative Ab Sc reen (Indirect Alfreda)vis [place] ([facility]) blood type O positive Blood Type [place] ([facility]) ID Date Data Source [id number] 11/16/2019 11:29:46 AM EDT [facility] Initial Intake Information From: patient Infectious Disease [...] been admitted to the hospital? Yes - [facility] HD Have you been to an emergency room (ER) or urgent care clinic? No - [facility] Emergency room (ER) or urgent [...] during this visit, including review of any [id number] medications, herbal therapies, and/or supplements.Allergy ReviewAllergy List [...] I82.469)Other pulmonary embolism with acute cor pulmonale (QFL21-H22.09) Assessment: Instructions: Tretament of this complicated by bleeding from rectal cancer and his reluctance to get an IVC filter.We will talk with Home Health and discuss that he is more of a comfort care patient at this point so we can discuss changing parameters for checking and responding to O2 sat.Recheck here as needed.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 She will bring in [facility] paperwork for me to fiill out.10 [...] and his daughter who is a health caregiver assisted living herself is willing to take this role. She will bring in [employer] paperwork for me to fiill out.10 minutes [...] ( (Critical)Orders:Telephone E&M 5-10 min Medical Discussion [[id number]] Name Value Range Interpretation Code Description Data Faith rce(s) Supporting Document(s) Procedure Social History No Information Vital Signs ID Date Data Source [id number] Name Value Range Interpretation Code Description Data Source(s) Diastolic blood pressure 70 mm[Hg] 70 [facility]Hg] [facility] Body height 68 [in_i] 68 [in_i] [place] ([facility]) Body mass index (BMI) [Ratio] 18.4 kg/m2 18.4 k g/m2 [place] ([facility]) Systolic blood pressure 134 mm[Hg] 134 mm[Hg] [place] ([facility]) Body weight 1940 [oz_av] 1940 [oz_av] [place] ([facility]) Patient Treatment Plan of Care Planned Activity Planned Date Details Description Data Source (s) Levothyroxine Sodium 0.05 MG Oral Tablet [place] ([facility]) torsemide 10 MG Oral Tablet [place] ([facility]) Thera-M 9 mg iron-400 mcg tablet TAKE ON E TABLET BY MOUTH EVERY DAY FOR SUPPLEMENT [place] ([facility]) Tamsulosin hydrochloride 0.4 MG Oral Capsule [place] ([facility]) Sucralfate 1000 MG Oral Tablet [place] ([facility]) tiotropium 0.018 MG/ACTUAT Inhalant Powder [Spiriva] [place] ([facility]) Prednisone 10 MG Oral Tablet [place] ([facility]) pantoprazole 40 MG Delayed Release Oral Tablet [place] ([facility]) olanzapine 15 MG Oral Tablet [place] ([facility]) 24 HR metoprolol succinate 25 MG Extended Release Oral Tablet [place] ([facility]) Magnesium Oxide 400 MG Oral Tablet [place] ([facility]) Lisinopril 20 MG Oral Tablet [place] ([facility]) Levofloxacin 750 MG Oral Tablet [place] ([facility]) Levetiracetam 500 MG Oral Tablet [place] ([facility]) Levetiracetam 250 MG Oral Tablet [place] ([facility]) 200 ACTUAT Levalbuterol 0.045 MG/ACTUAT Metered Dose Inhaler [place] ([facility]) Levalbuterol 0.417 MG/ML Inhalant Solution [place] ([facility]) Klor-Con M10 mEq tablet,extended release TAKE 1 TABLET BY MOUTH ONCE DAILY [place] ([facility]) Furosemide 20 MG Oral Tablet [place] ([facility]) Folic Acid 1 MG Oral Tablet [place] ([facility]) Fluticasone propionate 0.5 MG/ACTUAT / s almeterol 0.05 MG/ACTUAT Dry Powder Inhaler [place] ([facility]) ferrous sulfate 325 MG Delayed Release Oral Tablet [place] ([facility]) Digoxin 0.125 MG Oral Tablet [place] ([facility]) cefprozil 500 MG Oral Tablet [place] ([facility]) benzonatate 100 MG Oral Capsule [place] ([facility]) atorvastatin 20 MG Oral Tablet [place] ([facility]) atorvastatin 10 MG Oral Tablet [place] ([facility]) Atenolol 50 MG Oral Tablet A [place] ([facility]) Atenolol 25 MG Oral Tablet A [place] ([facility]) Amiodarone hydrochloride 200 MG Oral Tablet [place] ([facility])
[2021-01-13 23:06] LABS: INR 0.86; PROTHROMBIN TIME 12.2 SECONDS (12.7-14.5)
[2021-01-13 23:07] LABS: PARTIAL THROMBOPLASTIN TIME 32.9 SECONDS (25.9-37.0)
[2021-01-13] MEDS ORDERED: FLEET ENEMA PR PRN (23:50)
[2021-01-13] MEDS ORDERED: MOM 30ML SUSPENSION UDC PO PRN (23:50)
[2021-01-13] MEDS ORDERED: GLYCERIN ADULT SUPP PR PRN (23:50)
[2021-01-13] MEDS ORDERED: MIRALAX *UNIT DOSE* 17GM PACKET PO PRN (23:50)
[2021-01-14] VITALS (14 sets, daily range): BP systolic 115–134; BP diastolic 60–72
[2021-01-14] MEDS: PANTOPRAZOLE 40MG VIAL (C9113 PER 1) IV SCH ×3 (00:39→21:14)
[2021-01-14] MEDS: SENOKOT S TAB PO SCH ×2 (00:39→08:43)
[2021-01-14] MEDS: SUCRALFATE SUSP 1GM/10ML UD PO SCH ×5 (00:39→21:14)
[2021-01-14] MEDS: OLANZapine 2.5MG TABLET PO SCH ×2 (00:40→21:14)
--- NOTE | 2021-01-14 05:51 | ECGEPIP ---
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
[2021-01-14 08:15] LABS: HEMATOCRIT 28.3 % (42.0-52.0); HEMOGLOBIN 8.2 g/dl (13.5-17.5); MEAN CORPUSCULAR HEMOGLOBIN 27.2 pg (27.0-33.0); PLATELET COUNT, AUTOMATED 273 10^3/uL (150-450); RED BLOOD COUNT 3.01 10^6/uL (4.30-6.10); WHITE BLOOD COUNT 6.3 10^3/uL (4.0-10.0)
[2021-01-14 08:41] LABS: BLOOD UREA NITROGEN 21 MG/DL (7-18); CALCIUM LEVEL 8.1 MG/DL (8.8-10.2); CARBON DIOXIDE LEVEL 38 MEQ/L (21-32); CHLORIDE LEVEL 103 MEQ/L (98-107); CREATININE FOR GFR 0.52 MG/DL (0.70-1.30); FERRITIN 15 NG/ML (26-388); GLOMERULAR FILTRATION RATE > 60.0 (>42); GLUCOSE, FASTING 75 MG/DL (70-100); IRON (FE) 37 UG/DL (65-175); PERCENT SATURATION 13.7 % (19.7-50.0); POTASSIUM SERUM 4.3 MEQ/L (3.5-5.1); SODIUM LEVEL 143 MEQ/L (136-145); TOTAL IRON BINDING CAPACITY 271 UG/DL (250-450)
[2021-01-14] MEDS: SERTRALINE HCL 50 MG TAB PO SCH (08:44)
[2021-01-14] MEDS: LR 1,000 ML IV SCH ×2 (08:45→18:43)
[2021-01-14 08:53] LABS: VITAMIN B12 LEVEL 546 PG/ML (247-911)
--- NOTE | 2021-01-14 20:13 | IPNPDOC ---
Text Note Date of Service Significant event NOTE Specimen returned + Cdiff. Pt placed on contact precautions. He has been experiencing diarrhea despite stool burden noted on ct a/p during admission. No leukocytosis, afebrile, normotensive and not tachycardic. Will place on empiric coverage po vanc q6h, will defer to attending regarding fu rther adjustments to careplan. VS,Fishbone, I+O VS, Fishbone, I+O Laboratory Tests 01/14/21 07:19 Vital Signs Date Time Temp Pulse Resp B/P (MAP) Pulse Ox O2 Delivery O2 Flow Rate FiO2 01/14/21 10:00 3.0 01/14/21 07:00 98.2 92 16 122/68 90 Nasal Cannula I&O- Last 24 Hours up to 6 AM 01/14/21 06:00 Intake Total 1700 ml Balance 1700 ml FROYLAN VALE NP Jan 14, 2021 20:13
[2021-01-14] MEDS: VANCOMYCIN ORAL SOL 250MG/5ML ORAL SYRINGE PO SCH (21:14)
--- NOTE | 2021-01-14 21:29 | IPNPDOC ---
Subjective Date Seen The patient was seen on 01/14/21. Subjective Chief Complaint/HPI Mr. Salas is a 75 year old male with inoperative colorectal CA and and mild cognitive impairment who is here for weakness and diarrhea. This morning, he denied any chest pain or dyspnea, but reported lower abdominal pain and tenderness. Patient mental status is questionable. He is A&Ox4, but denies knowing about colorectal CA. He later changed his answer and said yes he new about it. Otherwise, hemoglobin responded to the transfusion. Will recheck later in the day. Objective Physical Examination General Exam: Positive: Alert, Cooperative Eye Exam: Negative: Sclera icteric ENT Exam: Positive: Atraumatic Neck Exam: Positive: Supple Chest Exam: Positive: Diminished Heart Exam: Positive: Rate Normal, Regular Rhythm Abdomen Exam: Positive: Normal bowel sounds, Soft, Tenderness (lower abdomen) Extremity Exam: Negative: Edema Neuro Exam: Positive: Normal Speech Psych Exam: Positive: Oriented x 3; Negative: Memory Intact Assessment /Plan Assessment Mr. Salas is a 75 year old male with inoperative colorectal CA and and mild cognitive impairment who is here for weakness and diarrhea. Clinical picture is complicated. Patient's occult stool is negative, but patient does have iron deficiency anemia. Possibly a slow bleed due to inoperative colorectal cancer. Despite occult stool negative with CT abd/pelvis demonstrating constipation, patient is C.diff positive. Patient empirically started on Vancomycin. Plan/VTE VTE Prophylaxis Ordered?: Yes Plan 1. Acute iron deficiency anemia -Most likely a slow chronic bleed from CRC -Patient was transfused with 2u -Responded appropriately -Continue to follow H&H 2. C.diff positive -Patient does not demonstrate leukocytosis or fever -Patient has increased stool burden -For the time being, continue PO vancomycin 3. Constipation -Patient reports diarrhea, but CT demonstrates large stool burden -Most likely overflow diarrhea 4. Dysuria -UA ordered 5. COPD -Chronically on 3L -Continue PRN albuterol 6. Schizophrenia -Continue Zyprexa and Sertraline 7. Paroxysmal atrial fibrillation -Currently in sinus rhythm -Not on rate control, rhythm control, or anticoagulation 8. DVT ppx -SCD and TEDs Disposition: Pending clinical improvement and stability of H&H VS, I&O, 24H, Fishbone Vital Signs/I&O Vital Signs Date Time Temp Pulse Resp B/P (MAP) Pulse Ox O2 Delivery O2 Flow Rate FiO2 11/30/21 10:00 3.0 01/14/21 07:00 98.2 92 16 122/68 90 Nasal Cannula I&O- Last 24 Hours up to 6 AM 01/14/21 06:00 Intake Total 1700 ml Balance 1700 ml Laboratory Data 24H LABS Laboratory Tests 2 01/13/21 22:07: Lactic Acid Level < 0.1L, Ammonia 12 01/13/21 22:57: Prothrombin Time 12.2, Prothromb Time International Ratio 0.86, Activated Partial Thromboplast Time 32.9 01/14/21 07:19: Nucleated Red Blood Cells % (auto) 0.0, Anion Gap 2L, Glomerular Filtration Rate > 60.0, Calcium Level 8.1L, Magnesium Level 2.0, Iron Level 37L, Total Iron Binding Capacity 271, Transferrin % Saturation 13.7L, Ferritin 15L, Carcinoembryonic Antigen 2230.9H, Vitamin B12 Level 546, Folate 6.0 CBC/BMP Laboratory Tests 01/14/21 07:19 Microbiology Microbiology 01/14/21 Stool Occult Blood ([facility]) - Final, Complete 01/14/21 Gastrointestinal Tract Panel (PCR) - Final, Complete Clostridium Difficile A/B ELIAS VELASQUEZ DO Jan 14, 2021 21:29
[2021-01-14 22:31] LABS: HEMATOCRIT 26.7 % (42.0-52.0); HEMOGLOBIN 7.7 g/dl (13.5-17.5); MEAN CORPUSCULAR HEMOGLOBIN 27.4 pg (27.0-33.0); MEAN CORPUSCULAR HGB CONC 28.8 g/dl (32.0-36.5); PLATELET COUNT, AUTOMATED 238 10^3/uL (150-450); RED BLOOD COUNT 2.81 10^6/uL (4.30-6.10); WHITE BLOOD COUNT 9.8 10^3/uL (4.0-10.0)
[2021-01-15] MEDS: VANCOMYCIN ORAL SOL 250MG/5ML ORAL SYRINGE PO SCH ×4 (00:33→18:01)
[2021-01-15] MEDS: LR 1,000 ML IV SCH ×3 (04:23→21:02)
[2021-01-15 06:00] VITALS: BP 141/70
[2021-01-15 06:22] LABS: HEMATOCRIT 28.8 % (42.0-52.0); MEAN CORPUSCULAR HEMOGLOBIN 26.8 pg (27.0-33.0); MEAN CORPUSCULAR HGB CONC 27.8 g/dl (32.0-36.5); MEAN CORPUSCULAR VOLUME 96.6 fl (80.0-96.0); PLATELET COUNT, AUTOMATED 239 10^3/uL (150-450); RED BLOOD COUNT 2.98 10^6/uL (4.30-6.10); WHITE BLOOD COUNT 6.3 10^3/uL (4.0-10.0)
[2021-01-15 06:51] LABS: BLOOD UREA NITROGEN 14 MG/DL (7-18); CALCIUM LEVEL 8.5 MG/DL (8.8-10.2); CARBON DIOXIDE LEVEL 40 MEQ/L (21-32); CHLORIDE LEVEL 103 MEQ/L (98-107); CREATININE FOR GFR 0.64 MG/DL (0.70-1.30); GLOMERULAR FILTRATION RATE > 60.0 (>42); GLUCOSE, FASTING 132 MG/DL (70-100); MAGNESIUM LEVEL 1.9 MG/DL (1.8-2.4); SODIUM LEVEL 143 MEQ/L (136-145)
[2021-01-15 08:00] VITALS: BP 138/70
[2021-01-15] MEDS: SUCRALFATE SUSP 1GM/10ML UD PO SCH ×4 (09:17→21:01)
[2021-01-15] MEDS: PANTOPRAZOLE 40MG VIAL (C9113 PER 1) IV SCH ×2 (09:17→21:01)
[2021-01-15] MEDS: SERTRALINE HCL 50 MG TAB PO SCH (09:22)
[2021-01-15 14:00] VITALS: BP 135/72
--- NOTE | 2021-01-15 20:59 | IPNPDOC ---
Subjective Date Seen The patient was seen on 01/15/21. Subjective Chief Complaint/HPI Mr. Salas is a 75 year old male with inoperative colorectal CA and and mild cognitive impairment who is here for weakness and diarrhea. This morning, he denies any chest pain or dyspnea. He tells me that he remembers having the colon cancer. I had started conversations about palliative or hospice, but he was not interested in it. Will try again tomorrow. Otherwise, I spoke with patient's daughter. Patient lives home alone and they cannot provide 24/7 care for patient. They would feel more comfortable with placement, but patient does not want placement. Will order PT/OT Objective Physical Examination General Exam: Positive: Alert, Cooperative Eye Exam: Negative: Sclera icteric ENT Exam: Positive: Atraumatic Neck Exam: Positive: Supple Chest Exam: Positive: Diminished Heart Exam: Positive: Rate Normal, Regular Rhythm Abdomen Exam: Positive: Normal bowel sounds, Soft, Tenderness (lower abdomen) Extremity Exam: Negative: Edema Neuro Exam: Positive: Normal Speech Psych Exam: Positive: Oriented x 3 Assessment /Plan Assessment Mr. Salas is a 75 year old male with inoperative colorectal CA and and mild cognitive impairment who is here for weakness and diarrhea. Clinical picture is complicated. Patient's occult stool is negative, but patient does have iron deficiency anemia. Possibly a slow bleed due to inoperative colorectal cancer. Despite occult stool negative with CT abd/pelvis demonstrating constipation, patient is C.diff positive. Patient empirically started on Vancomycin. Plan/VTE VTE Prophylaxis Ordered?: Yes Plan 1. Acute iron deficiency anemia -Most likely a slow chronic bleed from CRC -Patient was transfused with 2u -Responded appropriately -Continue to follow H&H 2. C.diff positive -Patient does not demonstrate leukocytosis or fever -Patient has increased stool burden -For the time being, continue PO vancomycin day 1 3. Constipation -Patient reports diarrhea, but CT demonstrates large stool burden -Most likely overflow diarrhea 4. Dysuria -UA ordered 5. COPD -Chronically on 3L -Continue PRN albuterol 6. Schizophrenia -Continue Zyprexa and Sertraline 7. Paroxysmal atrial fibrillation -Currently in sinus rhythm -Not on rate control, rhythm control, or anticoagulation 8. DVT ppx -SCD and TEDs Disposition: Pending clinical improvement and stability of H&H. Ordered for PT/OT VS, I&O, 24H, Fishbone Vital Signs/I&O Vital Signs Date Time Temp Pulse Resp B/P (MAP) Pulse Ox O2 Delivery O2 Flow Rate FiO2 01/15/21 14:00 98.6 71 18 135/72 (93) 94 Nasal Cannula 3.0 I&O- Last 24 Hours up to 6 AM 01/15/21 06:00 Intake Total 1360 ml Output Total 0 ml Balance 1360 ml Laboratory Data 24H LABS Laboratory Tests 2 01/14/21 21:41: Urine Color YELLOW, Urine Appearance CLOUDYH, Urine pH 5.0, Urine Specific Gravi ty 1.011, Urine Protein NEGATIVE, Urine Glucose (UA) NEGATIVE, Urine Ketones NEGATIVE, Urine Blood NEGATIVE, Urine Nitrite POSITIVEH, Urine Bilirubin NEGATIVE, Urine Urobilinogen 0.2, Urine Leukocyte Esterase 3+H, Urine WBC (Auto) 153H, Urine RBC (Auto) 3, Urine Hyaline Casts (Auto) 0, Urine Bacteria (Auto) 1+H, Urine Squamous Epithelial Cells 0, Urine Sperm (Auto) 01/14/21 22:22: Nucleated Red Blood Cells % (auto) 0.0 01/15/21 05:49: Nucleated Red Blood Cells % (auto) 0.0, Anion Gap 0L, Glomerular Filtration Rate > 60.0, Calcium Level 8.5L, Magnesium Level 1.9 01/15/21 16:41: Bedside Glucose (Misc Panel) 71L CBC/BMP Laboratory Tests 01/14/21 22:22 01/15/21 05:49 Microbiology Microbiology 01/14/21 Urine Culture, Received Pending 01/14/21 Stool Occult Blood ([facility]) - Final, Complete 01/14/21 Gastrointestinal Tract Panel (PCR) - Final, Complete Clostridium Difficile A/B ELIAS VELASQUEZ DO Jan 15, 2021 20:59
[2021-01-15] MEDS: OLANZapine 2.5MG TABLET PO SCH (21:01)
[2021-01-15 22:00] VITALS: BP 159/66
[2021-01-16] MEDS: VANCOMYCIN ORAL SOL 250MG/5ML ORAL SYRINGE PO SCH ×4 (02:05→17:21)
[2021-01-16 05:55] LABS: HEMATOCRIT 28.4 % (42.0-52.0); HEMOGLOBIN 7.8 g/dl (13.5-17.5); MEAN CORPUSCULAR HEMOGLOBIN 26.5 pg (27.0-33.0); MEAN CORPUSCULAR HGB CONC 27.5 g/dl (32.0-36.5); MEAN CORPUSCULAR VOLUME 96.6 fl (80.0-96.0); PLATELET COUNT, AUTOMATED 234 10^3/uL (150-450); RED BLOOD COUNT 2.94 10^6/uL (4.30-6.10); WHITE BLOOD COUNT 5.4 10^3/uL (4.0-10.0)
[2021-01-16 06:00] VITALS: BP 127/56
[2021-01-16 06:15] LABS: BLOOD UREA NITROGEN 12 MG/DL (7-18); CALCIUM LEVEL 8.1 MG/DL (8.8-10.2); CARBON DIOXIDE LEVEL 41 MEQ/L (21-32); CHLORIDE LEVEL 98 MEQ/L (98-107); CREATININE FOR GFR 0.57 MG/DL (0.70-1.30); GLOMERULAR FILTRATION RATE > 60.0 (>42); GLUCOSE, FASTING 132 MG/DL (70-100); MAGNESIUM LEVEL 1.7 MG/DL (1.8-2.4); SODIUM LEVEL 140 MEQ/L (136-145)
[2021-01-16] MEDS: LR 1,000 ML IV SCH (06:15)
[2021-01-16] MEDS: SUCRALFATE SUSP 1GM/10ML UD PO SCH ×4 (07:30→21:11)
[2021-01-16 09:00] VITALS: BP 127/58
[2021-01-16] MEDS: SERTRALINE HCL 50 MG TAB PO SCH (09:21)
[2021-01-16] MEDS: PANTOPRAZOLE 40MG VIAL (C9113 PER 1) IV SCH ×2 (09:21→21:11)
[2021-01-16 14:00] VITALS: BP 147/67
--- NOTE | 2021-01-16 19:01 | IPNPDOC ---
Subjective Date Seen The patient was seen on 01/16/21. Subjective Chief Complaint/HPI Mr. Salas is a 75 year old male with inoperative colorectal CA and and mild cognitive impairment who is here for weakness and diarrhea. This morning, he denies any chest pain or dyspnea. I tried to discuss CODE STATUS with patient again. He still wanted chest compressions or intubation if needed despite his inoperable cancer. Otherwise, physical therapy is recommending a few more sessions. Objective Physical Examination General Exam: Positive: Alert, Cooperative Eye Exam: Negative: Sclera icteric ENT Exam: Positive: Atraumatic Neck Exam: Positive: Supple Chest Exam: Positive: Diminished Heart Exam: Positive: Rate Normal, Regular Rhythm Abdomen Exam: Positive: Normal bowel sounds, Soft, Tenderness (lower abdomen) Extremity Exam: Negative: Edema Neuro Exam: Positive: Normal Speech Psych Exam: Positive: Oriented x 3 Assessment /Plan Assessment Mr. Salas is a 75 year old male with inoperative colorectal CA and and mild cognitive impairment who is here for weakness and diarrhea. Clinical picture is complicated. Patient's occult stool is negative, but patient does have iron deficiency anemia. Possibly a slow bleed due to inoperative colorectal cancer. Despite occult stool negative with CT abd/pelvis demonstrating constipation, patient is C.diff positive. Patient empirically started on Vancomycin. Plan/VTE VTE Prophylaxis Ordered?: Yes Plan 1. Acute iron deficiency anemia -Most likely a slow chronic bleed from CRC -Patient was transfused with 2u -Responded appropriately -Continue to follow H&H 2. C.diff positive -Patient does not demonstrate leukocytosis or fever -Patient has increased stool burden -For the time being, continue PO vancomycin day 2 3. Constipation -Patient reports diarrhea, but CT demonstrates large stool burden -Most likely overflow diarrhea 4. Dysuria -UA ordered and urine culture pending Given his C. difficile, will wait for urine culture results Patient continues to be afebrile 5. COPD -Chronically on 3L -Continue PRN albuterol 6. Schizophrenia -Continue Zyprexa and Sertraline 7. Paroxysmal atrial fibrillation -Currently in sinus rhythm -Not on rate control, rhythm control, or anticoagulation 8. DVT ppx -SCD and TEDs Disposition: Pending clinical improvement and stability of H&H. PT recommended a few more sessions. OT working with PFS for safe discharge VS, I&O, 24H, Fishbone Vital Signs/I&O Vital Signs Date Time Temp Pulse Resp B/P (MAP) Pulse Ox O2 Delivery O2 Flow Rate FiO2 01/16/21 14:00 98.3 68 18 147/67 (93) 99 Nasal Cannula 3.0 I&O- Last 24 Hours up to 6 AM 01/16/21 06:00 Intake Total 3600 ml Output Total 300 ml Balance 3300 ml Laboratory Data 24H LABS Laboratory Tests 2 01/16/21 05:26: Nucleated Red Blood Cells % (auto) 0.0, Anion Gap 1L, Glomerular Filtration Rate > 60.0, Calcium Level 8.1L, Magnesium Level 1.7L CBC/BMP Laboratory Tests 01/16/21 05:26 Microbiology Microbiology 01/14/21 Urine Culture, Received Pending 01/14/21 Stool Occult Blood ([facility]) - Final, Complete 01/14/21 Gastrointestinal Tract Panel (PCR) - Final, Complete Clostridium Difficile A/B ELIAS VELASQUEZ DO Jan 16, 2021 19:01
[2021-01-16 19:30] VITALS: BP_SYST 128; BP_SYST 143; BP_DIAS 61; BP_DIAS 63
[2021-01-16] MEDS: DOCUSATE SODIUM 100MG CAPSULE PO SCH (21:11)
[2021-01-16] MEDS: OLANZapine 2.5MG TABLET PO SCH (21:12)
[2021-01-16 22:00] VITALS: BP 143/63
[2021-01-17] MEDS: VANCOMYCIN ORAL SOL 250MG/5ML ORAL SYRINGE PO SCH ×4 (00:22→17:51)
[2021-01-17] MEDS: LR 1,000 ML IV SCH ×3 (02:04→13:57)
[2021-01-17 06:00] VITALS: BP 141/68
[2021-01-17 06:11] LABS: HEMATOCRIT 29.4 % (42.0-52.0); HEMOGLOBIN 8.1 g/dl (13.5-17.5); MEAN CORPUSCULAR HEMOGLOBIN 26.6 pg (27.0-33.0); MEAN CORPUSCULAR HGB CONC 27.6 g/dl (32.0-36.5); MEAN CORPUSCULAR VOLUME 96.7 fl (80.0-96.0); PLATELET COUNT, AUTOMATED 237 10^3/uL (150-450); RED BLOOD COUNT 3.04 10^6/uL (4.30-6.10); WHITE BLOOD COUNT 6.6 10^3/uL (4.0-10.0)
[2021-01-17 06:36] LABS: BLOOD UREA NITROGEN 11 MG/DL (7-18); CALCIUM LEVEL 8.4 MG/DL (8.8-10.2); CARBON DIOXIDE LEVEL 43 MEQ/L (21-32); CHLORIDE LEVEL 100 MEQ/L (98-107); CREATININE FOR GFR 0.49 MG/DL (0.70-1.30); GLOMERULAR FILTRATION RATE > 60.0 (>42); GLUCOSE, FASTING 77 MG/DL (70-100); MAGNESIUM LEVEL 1.6 MG/DL (1.8-2.4); POTASSIUM SERUM 4.1 MEQ/L (3.5-5.1); SODIUM LEVEL 142 MEQ/L (136-145)
[2021-01-17] MEDS: LevoFLOXacin IV 750 MG in IV 1 EA IV SCH (09:12)
[2021-01-17] MEDS: SERTRALINE HCL 50 MG TAB PO SCH (09:15)
[2021-01-17] MEDS: GASTROGRAFIN SOLUTION 30ML PO SCH ×2 (09:15→09:38)
[2021-01-17] MEDS: DOCUSATE SODIUM 100MG CAPSULE PO SCH ×2 (09:15→20:34)
[2021-01-17] MEDS: SUCRALFATE SUSP 1GM/10ML UD PO SCH ×4 (09:15→20:34)
[2021-01-17] MEDS: LACTOBACILLUS ACIDOPHILUS CAP (BACID) PO SCH ×2 (09:15→17:52)
[2021-01-17] MEDS: PANTOPRAZOLE 40MG VIAL (C9113 PER 1) IV SCH ×2 (09:23→20:34)
[2021-01-17] MEDS ORDERED: ISOVUE-370 76% 100ML VIAL As Ordered ONE (10:39)
--- NOTE | 2021-01-17 12:52 | IPNPDOC ---
Subjective Date Seen The patient was seen on 01/17/21. Subjective Chief Complaint/HPI Mr. Salas is a 75 year old male with inoperative colorectal CA and and mild cognitive impairment who is here for weakness and diarrhea. This morning, he denies chest pain or dyspnea. He had 7 BMs yesterday, but patient's previous CT of the abdomen pelvis demonstrated signs of constipation. We will repeat a CT of the abdomen pelvis with IV and oral contrast to evaluate for megacolon. Objective Physical Examination General Exam: Positive: Alert, Cooperative Eye Exam: Negative: Sclera icteric ENT Exam: Positive: Atraumatic Neck Exam: Positive: Supple Chest Exam: Positive: Diminished Heart Exam: Positive: Rate Normal, Regular Rhythm Abdomen Exam: Positive: Normal bowel sounds, Soft, Tenderness (lower abdomen) Extremity Exam: Negative: Edema Neuro Exam: Positive: Normal Speech Psych Exam: Positive: Oriented x 3 Assessment /Plan Assessment Mr. Salas is a 75 year old male with inoperative colorectal CA and and mild cognitive impairment who is here for weakness and diarrhea. Clinical picture is complicated. Patient's occult stool is negative, but patient does have iron deficiency anemia. Possibly a slow bleed due to inoperative colorectal cancer. Despite occult stool negative with CT abd/pelvis demonstrating constipation, patient is C.diff positive. Patient empirically started on Vancomycin. Plan/VTE VTE Prophylaxis Ordered?: Yes Plan 1. Acute iron deficiency anemia -Most likely a slow chronic bleed from CRC -Patient was transfused with 2u -Responded appropriately -H&H stable 2. C.diff positive -Patient does not demonstrate leukocytosis or fever -Patient has increased stool burden -For the time being, continue PO vancomycin day 3 Start probiotics 3. Constipation -Patient reports diarrhea, but CT demonstrates large stool burden -Most likely overflow diarrhea 4. Dysuria with E. coli UTI -Urine culture grew greater than 100,000 E. coli that are resistant to Unasyn and cefazolin Levofloxacin day 1 5. COPD -Chronically on 3L -Continue PRN albuterol 6. Schizophrenia -Continue Zyprexa and Sertraline 7. Paroxysmal atrial fibrillation -Currently in sinus rhythm -Not on rate control, rhythm control, or anticoagulation 8. DVT ppx -SCD and TEDs Disposition: Pending clinical improvement. PT recommended a few more sessions. OT working with PFS for safe discharge VS, I&O, 24H, Fishbone Vital Signs/I&O Vital Signs Date Time Temp Pulse Resp B/P (MAP) Pulse Ox O2 Delivery O2 Flow Rate FiO2 01/17/21 06:00 98.4 74 18 141/68 (92) 95 Nasal Cannula 3.0 I&O- Last 24 Hours up to 6 AM 01/17/21 05:59 Intake Total 3960 ml Output Total 0 ml Balance 3960 ml Laboratory Data 24H LABS Laboratory Tests 2 01/17/21 05:47: Nucleated Red Blood Cells % (auto) 0.0, Anion Gap , Glomerular Filtration Rate > 60.0, Calcium Level 8.4L, Magnesium Level 1.6L CBC/BMP Laboratory Tests 01/17/21 05:47 Microbiology Microbiology 01/14/21 Urine Culture - Final, Complete Escherichia Coli 01/14/21 Stool Occult Blood ([facility]) - Final, Complete 01/14/21 Gastrointestinal Tract Panel (PCR) - Final, Complete Clostridium Difficile A/B ELIAS VELASQUEZ DO Jan 17, 2021 12:52
--- NOTE | 2021-01-17 13:25 | REP ---
INDICATION: C.diff, question megalocolon/colitis? Increased stool burden. COMPARISON: Multiple the latest 01/13/2021 TECHNIQUE: Standard helical technique after the intravenous administration of 100 cc Isovue 370. Oral bowel preparatory contrast was administered prior to the exam. FINDINGS: The lung bases show small bilateral pleural effusions have developed since the last exam. The right lower lobe nodule seen on the prior exam is unchanged. The liver is unchanged. There is hepatic metastasis status quo. The spleen, pancreas, adrenal glands, and kidneys are unchanged. Once again, there are numerous bilateral renal cysts of various sizes and shapes all stable. There is no change in the abdominal aorta. There is an unchanged 3.2 cm sized infrarenal abdominal aortic aneurysm. Heavy calcific atherosclerotic changes seen throughout the abdominal aorta and iliac arteries. There is no significant change in appearance of the bowel loops. There is a large amount of colonic content status quo. The sigmoid colon is noncontrast opacified. Sigmoid colon mass cannot be ruled out. A moderate amount of there is no significant change in appearance of the osseous structures. Ascites has developed since the last exam. IMPRESSION: No significant change other than newly developed moderate ascites and small bilateral pleural effusions. <Electronically signed by Kade Velazquez > 01/17/21 [id number]
[2021-01-17 14:00] VITALS: BP 156/70
[2021-01-17] MEDS: OLANZapine 2.5MG TABLET PO SCH (20:34)
[2021-01-17 22:00] VITALS: BP 141/65
[2021-01-18] MEDS: LR 1,000 ML IV SCH ×3 (00:02→22:35)
[2021-01-18] MEDS: VANCOMYCIN ORAL SOL 250MG/5ML ORAL SYRINGE PO SCH ×4 (00:40→18:00)
[2021-01-18 06:00] VITALS: BP 143/65
[2021-01-18 06:46] LABS: HEMATOCRIT 27.8 % (42.0-52.0); HEMOGLOBIN 7.9 g/dl (13.5-17.5); MEAN CORPUSCULAR HEMOGLOBIN 27.3 pg (27.0-33.0); MEAN CORPUSCULAR HGB CONC 28.4 g/dl (32.0-36.5); MEAN CORPUSCULAR VOLUME 96.2 fl (80.0-96.0); PLATELET COUNT, AUTOMATED 232 10^3/uL (150-450); RED BLOOD COUNT 2.89 10^6/uL (4.30-6.10); WHITE BLOOD COUNT 5.9 10^3/uL (4.0-10.0)
[2021-01-18 07:07] LABS: BLOOD UREA NITROGEN 10 MG/DL (7-18); CALCIUM LEVEL 8.5 MG/DL (8.8-10.2); CARBON DIOXIDE LEVEL 44 MEQ/L (21-32); CHLORIDE LEVEL 99 MEQ/L (98-107); CREATININE FOR GFR 0.44 MG/DL (0.70-1.30); GLOMERULAR FILTRATION RATE > 60.0 (>42); GLUCOSE, FASTING 76 MG/DL (70-100); MAGNESIUM LEVEL 1.5 MG/DL (1.8-2.4); SODIUM LEVEL 143 MEQ/L (136-145)
[2021-01-18] MEDS: LevoFLOXacin IV 750 MG in IV 1 EA IV SCH (09:10)
[2021-01-18] MEDS: DOCUSATE SODIUM 100MG CAPSULE PO SCH ×2 (09:10→20:03)
[2021-01-18] MEDS: PANTOPRAZOLE 40MG VIAL (C9113 PER 1) IV SCH ×2 (09:10→20:03)
[2021-01-18] MEDS: SUCRALFATE SUSP 1GM/10ML UD PO SCH ×4 (09:11→20:03)
[2021-01-18] MEDS: SERTRALINE HCL 50 MG TAB PO SCH (09:11)
[2021-01-18] MEDS: LACTOBACILLUS ACIDOPHILUS CAP (BACID) PO SCH ×2 (09:11→18:00)
--- NOTE | 2021-01-18 13:49 | IPNPDOC ---
Subjective Date Seen The patient was seen on 01/18/21. Subjective Chief Complaint/HPI Mr. Salas is a 75 year old male with inoperative colorectal CA and and mild cognitive impairment who is here for weakness and diarrhea. Today, he denies any chest pain or dyspnea. Hemoglobin has remained stable. Pending PT and OT re- evaluation. Objective Physical Examination General Exam: Positive: Alert, Cooperative Eye Exam: Negative: Sclera icteric ENT Exam: Positive: Atraumatic Neck Exam: Positive: Supple Chest Exam: Positive: Diminished Heart Exam: Positive: Rate Normal, Regular Rhythm Abdomen Exam: Positive: Normal bowel sounds, Soft, Tenderness (lower abdomen) Extremity Exam: Negative: Edema Neuro Exam: Positive: Normal Speech Psych Exam: Positive: Oriented x 3 Assessment /Plan Assessment Mr. Salas is a 75 year old male with inoperative colorectal CA and and mild cognitive impairment who is here for weakness and diarrhea. Clinical picture is complicated. Patient's occult stool is negative, but patient does have iron deficiency anemia. Possibly a slow bleed due to inoperative colorectal cancer. Despite occult stool negative with CT abd/pelvis demonstrating constipation, patient is C.diff positive. Patient empirically started on Vancomycin. PT and OT recommending a few more sessions of therapy. Plan/VTE VTE Prophylaxis Ordered?: Yes Plan 1. Acute iron deficiency anemia -Most likely a slow chronic bleed from CRC -Patient was transfused with 2u -Responded appropriately -H&H stable 2. C.diff positive -Patient does not demonstrate leukocytosis or fever -Patient has increased stool burden -For the time being, continue PO vancomycin day 4 Start probiotics 3. Constipation -Patient reports diarrhea, but CT demonstrates large stool burden -Most likely overflow diarrhea 4. Dysuria with E. coli UTI -Urine culture grew greater than 100,000 E. coli that are resistant to Unasyn and cefazolin Levofloxacin day 2 5. COPD -Chronically on 3L -Continue PRN albuterol 6. Schizophrenia -Continue Zyprexa and Sertraline 7. Paroxysmal atrial fibrillation -Currently in sinus rhythm -Not on rate control, rhythm control, or anticoagulation 8. DVT ppx -SCD and TEDs Disposition: PT recommended a few more sessions. OT working with PFS for safe discharge VS, I&O, 24H, Fishbone Vital Signs/I&O Vital Signs Date Time Temp Pulse Resp B/P (MAP) Pulse Ox O2 Delivery O2 Flow Rate FiO2 12/4/21 08:36 3.0 01/18/21 06:00 98.7 74 18 143/65 (91) 96 Nasal Cannula I&O- Last 24 Hours up to 6 AM 01/18/21 05:59 Intake Total 3210 ml Output Total 0 ml Balance 3210 ml Laboratory Data 24H LABS Laboratory Tests 2 01/18/21 05:59: Nucleated Red Blood Cells % (auto) 0.0, Anion Gap 0L, Glomerular Filtration Rate > 60.0, Calcium Level 8.5L, Magnesium Level 1.5L CBC/BMP Laboratory Tests 01/18/21 05:59 Microbiology Microbiology 01/14/21 Urine Culture - Final, Complete Escherichia Coli 01/14/21 Stool Occult Blood ([facility]) - Final, Complete 01/14/21 Gastrointestinal Tract Panel (PCR) - Final, Complete Clostridium Difficile A/B ELIAS VELASQUEZ DO Jan 18, 2021 13:49
[2021-01-18 14:00] VITALS: BP 143/68
[2021-01-18] MEDS: OLANZapine 2.5MG TABLET PO SCH (20:04)
[2021-01-18 22:00] VITALS: BP 145/70
[2021-01-19] MEDS: VANCOMYCIN ORAL SOL 250MG/5ML ORAL SYRINGE PO SCH ×4 (00:11→17:11)
[2021-01-19 06:00] VITALS: BP 144/66
[2021-01-19 06:52] LABS: HEMATOCRIT 29.8 % (42.0-52.0); HEMOGLOBIN 8.3 g/dl (13.5-17.5); MEAN CORPUSCULAR HEMOGLOBIN 27.2 pg (27.0-33.0); MEAN CORPUSCULAR HGB CONC 27.9 g/dl (32.0-36.5); MEAN CORPUSCULAR VOLUME 97.7 fl (80.0-96.0); PLATELET COUNT, AUTOMATED 228 10^3/uL (150-450); RED BLOOD COUNT 3.05 10^6/uL (4.30-6.10); WHITE BLOOD COUNT 5.1 10^3/uL (4.0-10.0)
[2021-01-19 07:49] LABS: BLOOD UREA NITROGEN 10 MG/DL (7-18); CALCIUM LEVEL 8.7 MG/DL (8.8-10.2); CARBON DIOXIDE LEVEL 47 MEQ/L (21-32); CHLORIDE LEVEL 97 MEQ/L (98-107); CREATININE FOR GFR 0.55 MG/DL (0.70-1.30); GLOMERULAR FILTRATION RATE > 60.0 (>42); GLUCOSE, FASTING 82 MG/DL (70-100); MAGNESIUM LEVEL 1.7 MG/DL (1.8-2.4); POTASSIUM SERUM 4.1 MEQ/L (3.5-5.1); SODIUM LEVEL 142 MEQ/L (136-145)
[2021-01-19] MEDS: LACTOBACILLUS ACIDOPHILUS CAP (BACID) PO SCH ×2 (08:03→17:10)
[2021-01-19] MEDS: MAG SULF 1GM/100ML (MAG RUN) 1 GM in IV 1 EA IV SCH ×4 (08:03→12:24)
[2021-01-19] MEDS: SUCRALFATE SUSP 1GM/10ML UD PO SCH ×4 (08:03→20:33)
[2021-01-19] MEDS: SERTRALINE HCL 50 MG TAB PO SCH (08:03)
[2021-01-19] MEDS: DOCUSATE SODIUM 100MG CAPSULE PO SCH ×2 (08:03→20:33)
[2021-01-19] MEDS: PANTOPRAZOLE 40MG VIAL (C9113 PER 1) IV SCH ×2 (08:03→20:33)
[2021-01-19] MEDS: LevoFLOXacin IV 750 MG in IV 1 EA IV SCH (08:04)
[2021-01-19] MEDS ORDERED: FUROSEMIDE 40MG/4ML VIAL (J1940) IV ONE (10:00)
--- NOTE | 2021-01-19 14:00 | IPNPDOC ---
Subjective Date Seen The patient was seen on 01/19/21. Subjective Chief Complaint/HPI Mr. Salas is a 75 year old male with inoperative colorectal CA and and mild cognitive impairment who is here for weakness and diarrhea. This morning he is feeling well. Denies any chest pain or dyspnea. Hemoglobin has remained stable Objective Physical Examination General Exam: Positive: Alert, Cooperative Eye Exam: Negative: Sclera icteric ENT Exam: Positive: Atraumatic Neck Exam: Positive: Supple Chest Exam: Positive: Diminished Heart Exam: Positive: Rate Normal, Regular Rhythm Abdomen Exam: Positive: Normal bowel sounds, Soft, Tenderness (lower abdomen) Extremity Exam: Negative: Edema Neuro Exam: Positive: Normal Speech Psych Exam: Positive: Oriented x 3 Assessment /Plan Assessment Mr. Salas is a 75 year old male with inoperative colorectal CA and and mild cognitive impairment who is here for weakness and diarrhea. Clinical picture is complicated. Patient's occult stool is negative, but patient does have iron deficiency anemia. Possibly a slow bleed due to inoperative colorectal cancer. Despite occult stool negative with CT abd/pelvis demonstrating constipation, patient is C.diff positive. Patient empirically started on Vancomycin. PT and OT recommending a few more sessions of therapy. Plan/VTE VTE Prophylaxis Ordered?: Yes Plan 1. Acute iron deficiency anemia -Most likely a slow chronic bleed from CRC -Patient was transfused with 2u -Responded appropriately -H&H stable 2. C.diff positive -Patient does not demonstrate leukocytosis or fever -Patient has increased stool burden -For the time being, continue PO vancomycin day 5 Start probiotics 3. Constipation -Patient reports diarrhea, but CT demonstrates large stool burden -Most likely overflow diarrhea 4. Dysuria with E. coli UTI -Urine culture grew greater than 100,000 E. coli that are resistant to Unasyn and cefazolin Levofloxacin day 3 5. COPD -Chronically on 3L -Continue PRN albuterol 6. Schizophrenia -Continue Zyprexa and Sertraline 7. Paroxysmal atrial fibrillation -Currently in sinus rhythm -Not on rate control, rhythm control, or anticoagulation 8. DVT ppx -SCD and TEDs Disposition: PT recommended a few more sessions. OT working with PFS for safe discharge VS, I&O, 24H, Fishbone Vital Signs/I&O Vital Signs Date Time Temp Pulse Resp B/P (MAP) Pulse Ox O2 Delivery O2 Flow Rate FiO2 01/19/21 09:47 4.0 01/19/21 06:00 98.6 72 18 144/66 (92) 96 Nasal Cannula I&O- Last 24 Hours up to 6 AM 01/19/21 05:59 Intake Total 3950 ml Balance 3950 ml Laboratory Data 24H LABS Laboratory Tests 2 01/19/21 06:33: Nucleated Red Blood Cells % (auto) 0.0, Anion Gap , Glomerular Filtration Rate > 60.0, Calcium Level 8.7L, Magnesium Level 1.7L CBC/BMP Laboratory Tests 01/19/21 06:33 Microbiology Microbiology 01/14/21 Urine Culture - Final, Complete Escherichia Coli 01/14/21 Stool Occult Blood ([facility]) - Final, Complete 01/14/21 Gastrointestinal Tract Panel (PCR) - Final, Complete Clostridium Difficile A/B ELIAS VELASQUEZ DO Jan 19, 2021 14:00
[2021-01-19 14:58] VITALS: BP 144/65
[2021-01-19] MEDS: OLANZapine 2.5MG TABLET PO SCH (20:33)
[2021-01-19 22:00] VITALS: BP 140/70
[2021-01-20] MEDS: VANCOMYCIN ORAL SOL 250MG/5ML ORAL SYRINGE PO SCH ×5 (00:25→23:52)
[2021-01-20 05:58] VITALS: BP 162/71
[2021-01-20 08:10] LABS: HEMATOCRIT 28.7 % (42.0-52.0); HEMOGLOBIN 7.9 g/dl (13.5-17.5); MEAN CORPUSCULAR HGB CONC 27.5 g/dl (32.0-36.5); PLATELET COUNT, AUTOMATED 233 10^3/uL (150-450); RED BLOOD COUNT 2.93 10^6/uL (4.30-6.10); WHITE BLOOD COUNT 5.6 10^3/uL (4.0-10.0)
[2021-01-20] MEDS: LevoFLOXacin IV 750 MG in IV 1 EA IV SCH (08:23)
[2021-01-20] MEDS: DOCUSATE SODIUM 100MG CAPSULE PO SCH ×2 (08:23→20:59)
[2021-01-20] MEDS: SUCRALFATE SUSP 1GM/10ML UD PO SCH ×4 (08:23→20:59)
[2021-01-20] MEDS: PANTOPRAZOLE 40MG VIAL (C9113 PER 1) IV SCH ×2 (08:23→20:59)
[2021-01-20] MEDS: LACTOBACILLUS ACIDOPHILUS CAP (BACID) PO SCH ×2 (08:23→17:43)
[2021-01-20] MEDS: SERTRALINE HCL 50 MG TAB PO SCH (08:24)
[2021-01-20 09:10] LABS: BLOOD UREA NITROGEN 10 MG/DL (7-18); CALCIUM LEVEL 8.8 MG/DL (8.8-10.2); CARBON DIOXIDE LEVEL 52 MEQ/L (21-32); CHLORIDE LEVEL 91 MEQ/L (98-107); CREATININE FOR GFR 0.52 MG/DL (0.70-1.30); GLOMERULAR FILTRATION RATE > 60.0 (>42); GLUCOSE, FASTING 81 MG/DL (70-100); MAGNESIUM LEVEL 2.1 MG/DL (1.8-2.4); POTASSIUM SERUM 4.1 MEQ/L (3.5-5.1); SODIUM LEVEL 141 MEQ/L (136-145)
--- NOTE | 2021-01-20 09:27 | REP ---
INDICATION: Hypoxia. COMPARISON: 01/13/2021. TECHNIQUE: Single portable AP view of the chest was performed. FINDINGS: New mild scattered diffuse bilateral infiltrates are present. There small bilateral pleural effusions. The heart is not significantly enlarged. There is calcification of the thoracic aorta. The mediastinal silhouette is unchanged. IMPRESSION: Mild diffuse bilateral infiltrates and small effusions. <Electronically signed by Nader Robertson > 01/20/21 0924
[2021-01-20] MEDS ORDERED: FUROSEMIDE 40MG/4ML VIAL (J1940) IV ONE (10:00)
[2021-01-20 11:04] LABS: NT-PRO BNP 3125 PG/ML (<125)
[2021-01-20] MEDS: IPRATROPIUM 0.5MG/ALBUTEROL 2.5MG INH SOL UD 3ML (DUONEB) NEB SCH ×3 (11:39→20:22)
[2021-01-20 14:00] VITALS: BP 149/69
--- NOTE | 2021-01-20 16:04 | IPNPDOC ---
Subjective Date Seen The patient was seen on 01/20/21. Subjective Chief Complaint/HPI Mr. Salas is a 75 year old male with inoperative colorectal CA and and mild cognitive impairment who is here for weakness and diarrhea. This morning, he felt well and denied any chest pain or dyspnea. About 30 mins later, I was contacted by nurse, patient had become acutely hypoxic on 5L nasal cannula. He was but on a non-rebreather. Lung sound diminished. I ordered for CXR, BNP, and scheduled duonebs. I went back to see patient. He said that all of a sudden he felt that his lungs closed in on him and he couldn't breath. He felt better with the non-rebreather. He was using his respiratory muscles to breath. Lungs were diminished, but no wheezing or crackles. CXR suggested bilateral infiltrates and small effusions. Patient did receive fluids during the week. Ordered for another dose of IV lasix. Other differential include PE given his history of cancer. CT angio chest and ABG ordered. Objective Physical Examination General Exam: Positive: Alert, Cooperative Eye Exam: Negative: Sclera icteric ENT Exam: Positive: Atraumatic Neck Exam: Positive: Supple Chest Exam: Positive: Diminished Heart Exam: Positive: Rate Normal, Regular Rhythm Abdomen Exam: Positive: Normal bowel sounds, Soft, Tenderness (lower abdomen) Extremity Exam: Negative: Edema Neuro Exam: Positive: Normal Speech Psych Exam: Positive: Oriented x 3 Assessment /Plan Assessment Mr. Salas is a 75 year old male with inoperative colorectal CA and and mild cognitive impairment who is here for weakness and diarrhea. Clinical picture is complicated. Patient's occult stool is negative, but patient does have iron deficiency anemia. Possibly a slow bleed due to inoperative colorectal cancer. Despite occult stool negative with CT abd/pelvis demonstrating constipation, patient is C.diff positive. Patient empirically started on Vancomycin. PT and OT recommending a few more sessions of therapy. Plan/VTE VTE Prophylaxis Ordered?: Yes Plan 1. Acute iron deficiency anemia -Most likely a slow chronic bleed from CRC -Patient was transfused with 2u -Responded appropriately -H&H stable 2. C.diff positive -Patient does not demonstrate leukocytosis or fever -Patient has increased stool burden -For the time being, continue PO vancomycin day 6 Continue probiotics 3. Constipation -Patient reports diarrhea, but CT abd/pelvis demonstrates large stool burden -Most likely overflow diarrhea 4. Dysuria with E. coli UTI -Urine culture grew greater than 100,000 E. coli that are resistant to Unasyn and cefazolin Levofloxacin day 4 5. COPD -Chronically on 3L -Continue PRN albuterol -Patient had trouble breathing on 01/20/2021,he felt that his airways were closing. No wheezes heard, but diminished. Will order for duonebs [id number] 6. Schizophrenia -Continue Zyprexa and Sertraline 7. Paroxysmal atrial fibrillation -Currently in sinus rhythm -Not on rate control, rhythm control, or anticoagulation 8. DVT ppx -SCD and TEDs Disposition: PT recommended a few more sessions. OT working with PFS for safe discharge planning. Otherwise, today, patient's respiratory status worsened. Possibly fluid overload since we gave him IVF and blood. PE is on the differential. Will order CT angio chest and ABG. VS, I&O, 24H, Fishbone Vital Signs/I&O Vital Signs Date Time Temp Pulse Resp B/P (MAP) Pulse Ox O2 Delivery O2 Flow Rate FiO2 01/20/21 05:58 97.4 70 18 162/71 (101) 94 Nasal Cannula 4.0 I&O- Last 24 Hours up to 6 AM 01/20/21 06:00 Intake Total 2920 ml Output Total 0 ml Balance 2920 ml Laboratory Data 24H LABS Laboratory Tests 2 01/20/21 07:31: Nucleated Red Blood Cells % (auto) 0.0, Anion Gap , Glomerular Filtration Rate > 60.0, Calcium Level 8.8, Magnesium Level 2.1, XI-Sui-O-Type Natriuretic Peptide 3125H, Procalcitonin 0.10 CBC/BMP Laboratory Tests 01/20/21 07:31 Microbiology Microbiology 01/14/21 Urine Culture - Final, Complete Escherichia Coli 01/14/21 Stool Occult Blood ([facility]) - Final, Complete 01/14/21 Gastrointestinal Tract Panel (PCR) - Final, Complete Clostridium Difficile A/B ELIAS VELASQUEZ DO Jan 20, 2021 16:04
[2021-01-20] MEDS ORDERED: ISOVUE-370 76% 100ML VIAL As Ordered ONE (17:43)
--- NOTE | 2021-01-20 19:24 | REPVR ---
PROCEDURE INFORMATION: Exam: CTA Chest With Contrast Exam date and time: 01/20/2021 6:10 PM Age: 75 years old Clinical indication: Shortness of breath; Additional info: Increased oxygen requirements, pe? TECHNIQUE: Imaging protocol: Computed tomographic angiography of the chest with contrast. 3D rendering (Not supervised by radiologist): MIP and/or 3D reconstructed images were created by the technologist. Radiation optimization: All CT scans at this facility use at least one of these dose optimization techniques: automated exposure control; mA and/or kV adjustment per patient size (includes targeted exams where dose is matched to clinical indication); or iterative reconstruction. Contrast material: ISOVUE 370; Contrast volume: 75 ml; Contrast route: INTRAVENOUS (IV); COMPARISON: CT ANGIO CHEST 10/31/2019 2:00 AM FINDINGS: Pulmonary arteries: There are no pulmonary emboli. Aorta: There is fusiform dilatation of the supravalvular ascending thoracic aorta which measures 3.9 cm. maximally. There is no dissection or saccular component. Other arteries: There is moderate atherosclerosis in the thoracic aorta. Lungs: 9.6 mm noncalcified pulmonary parenchymal nodule in the lingular lobe, and 4.5 mm and 12 mm nodules in the right lower lobe not demonstrated on the prior study of 10/31/2019. Severe centrilobular and paraseptal emphysematous changes most pronounced in the upper mid lung zones. COPD. Pleural spaces: Small bilateral pleural effusions. Heart: There is moderate atherosclerotic calcification of the coronary arteries. Lymph nodes: Unremarkable. No enlarged lymph nodes. Diaphragm: Small sliding hiatal hernia. Bones/joints: The spine demonstrates moderate degenerative changes. Soft tissues: Cavitating process in the superior segment of the left lower lobe measuring 3.5 x 2.6 x 5.3 cm containing a lobular soft tissue component on its lateral margin measuring 2.8 x 1.3 x 2.7 cm. Finding not demonstrated on the prior study of 10/31/2019. IMPRESSION: 1. 9.6 mm noncalcified pulmonary parenchymal nodule in the lingular lobe, and 4.5 mm and 12 mm nodules in the right lower lobe not demonstrated on the prior study of 10/31/2019. Findings worrisome for neoplasm. Correlation with PET imaging suggested as per Fleischner guidelines. 2. Cavitating process in the superior segment of the left lower lobe measuring 3.5 x 2.6 x 5.3 cm containing a lobular soft tissue component on its lateral margin measuring 2.8 x 1.3 x 2.7 cm. Finding not demonstrated on the prior study of 10/31/2019. Finding worrisome for neoplasm. Correlation with PET imaging suggested. 3. There is fusiform dilatation of the supravalvular ascending thoracic aorta which measures 3.9 cm. maximally. There is no dissection or saccular component. 4. Small bilateral pleural effusions. 5. There are no pulmonary emboli. 6. Severe centrilobular and paraseptal emphysematous changes most pronounced in the upper mid lung zones. COPD. Electronically signed by: Irwin Contreras On 01/20/2021 19:23:29 PM
[2021-01-20] MEDS: OLANZapine 2.5MG TABLET PO SCH (20:59)
[2021-01-20 21:00] VITALS: BP 157/67
[2021-01-21] MEDS: IPRATROPIUM 0.5MG/ALBUTEROL 2.5MG INH SOL UD 3ML (DUONEB) NEB SCH ×4 (01:17→20:01)
[2021-01-21 05:43] VITALS: BP 120/77
[2021-01-21 06:10] LABS: HEMATOCRIT 27.1 % (42.0-52.0); HEMOGLOBIN 7.6 g/dl (13.5-17.5); MEAN CORPUSCULAR HEMOGLOBIN 26.7 pg (27.0-33.0); MEAN CORPUSCULAR VOLUME 95.1 fl (80.0-96.0); PLATELET COUNT, AUTOMATED 221 10^3/uL (150-450); RED BLOOD COUNT 2.85 10^6/uL (4.30-6.10); WHITE BLOOD COUNT 5.3 10^3/uL (4.0-10.0)
[2021-01-21] MEDS: VANCOMYCIN ORAL SOL 250MG/5ML ORAL SYRINGE PO SCH ×3 (06:16→18:17)
[2021-01-21 06:58] LABS: BLOOD UREA NITROGEN 12 MG/DL (7-18); CALCIUM LEVEL 8.3 MG/DL (8.8-10.2); CARBON DIOXIDE LEVEL 54 MEQ/L (21-32); CHLORIDE LEVEL 88 MEQ/L (98-107); CREATININE FOR GFR 0.54 MG/DL (0.70-1.30); GLOMERULAR FILTRATION RATE > 60.0 (>42); GLUCOSE, FASTING 89 MG/DL (70-100); POTASSIUM SERUM 3.9 MEQ/L (3.5-5.1); SODIUM LEVEL 141 MEQ/L (136-145)
[2021-01-21] MEDS: SUCRALFATE SUSP 1GM/10ML UD PO SCH ×4 (07:30→20:15)
[2021-01-21] MEDS: PANTOPRAZOLE 40MG VIAL (C9113 PER 1) IV SCH ×2 (07:30→20:16)
[2021-01-21] MEDS: LACTOBACILLUS ACIDOPHILUS CAP (BACID) PO SCH ×2 (07:31→18:17)
[2021-01-21] MEDS: DOCUSATE SODIUM 100MG CAPSULE PO SCH ×2 (07:31→20:15)
[2021-01-21] MEDS: LevoFLOXacin IV 750 MG in IV 1 EA IV SCH (07:31)
[2021-01-21] MEDS: SERTRALINE HCL 50 MG TAB PO SCH (07:32)
[2021-01-21 14:00] VITALS: BP 135/54
--- NOTE | 2021-01-21 15:37 | IPNPDOC ---
Text Note Date of Service The patient was seen on 01/21/21. NOTE SUBJECTIVE: I went in to see the patient with [facility] (BERNY) and we discussed potential placement given his recent illness, ongoing cancer, anemia and generalized weakness while he lives alone at home. He agreed that he is unlikely to be safe to go home in his current state and is agreeable to SNF placement but is not yet ready for hospice consideration at this time. PHYSICAL EXAMINATION: VITAL SIGNS: Please see below. GENERAL APPEARANCE: Resting comfortably in bed. Appears older than stated age. In no acute distress HEENT: No mass or lesion. Nasal canula in place. EOMI. No scleral icterus. Nares patent. oral mucosa moist CARDIOVASCULAR: Regular rate, rhythm. no murmurs, rubs, gallops LUNGS: Decreased breath sounds b/l. no adventitious lung sounds ABDOMEN: Hypoactive bowel sounds, Soft, mild tenderness throughout EXTREMITIES: No pedal edema appreciated. No overlying skin changes. Pulses intact NEUROLOGICAL: Speech clear. A+Ox3. No focal deficit. PSYCHIATRIC: AOx3 LABORATORY DATA: Reviewed. See below. WBC 5.3 hgb 7.6 Platelets 221 na 141 K 3.9 Cr 0.54 IMAGING: [CXR: FINDINGS: The technique utilized in obtaining the radiograph has magnified the cardiac silhouette and accentuated the interstitial markings. The cardiomediastinal silhouette lung bullock are unchanged. There is mild cardiomegaly accentuated by technique. There is evidence of interstitial fibrotic change. There are no acute patchy parenchymal opacities or pleural effusions. IMPRESSION: There is no acute cardiopulmonary disease. The exam is limited. Repeat exam is recommended without apical lordotic technique. Head CT: FINDINGS: The ventricles and sulci are unchanged. There are no acute extra-axial fluid collections. There is no shift of the midline structures. The deep white matter is unchanged. The posterior fossa is unchanged. The skull and paranasal sinuses are unchanged. IMPRESSION: There is no evidence of acute intracranial pathology or significant change comp ared to the prior exam. CT Abd/pelvis: FINDINGS: Diaphragm: A small sliding hiatal hernia is present. Liver: There are hypodense hepatic masses demonstrated, the largest located in segment 2 of the left lobe of the liver demonstrating multiple punctate calcifications. 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 Hepatomegaly. Gallbladder and bile ducts: Normal. No calcified stones. No ductal dilation. Pancreas: Visible nondilated pancreatic duct. Pancreas otherwise appears unremarkable. Spleen: Normal. No splenomegaly. Adrenal glands: Normal. No mass. Kidneys and ureters: Multiple bilateral simple renal cysts measure up to 10 cm in the inferior aspect of the left kidney. Also noted are several probable hyperdense cysts in both the right and left kidneys measuring up to 2.1 cm. Confirmation with nonemergent renal ultrasound could be obtained if clinically desired. Stomach and bowel: There is increased feces throughout the colon consistent with constipation. There is mild dilatation of the proximal colon. There is a large mass likely arising from the rectosigmoid colon filling much of the deep central pelvis measuring approximately 6.5 x 7.2 x 6.9 cm. Findings consistent with a locally invasive distal colonic neoplasm. Impression Appendix: No evidence of appendicitis. Intraperitoneal space: Unremarkable. No free air. No significant fluid collection. Vasculature: The aortoiliac vessels demonstrate moderate atherosclerotic calcification. There is an infrarenal focal abdominal aortic aneurysm measuring 3.3 cm maximum transverse dimensions extending craniocaudad for 4 cm. Lymph nodes: Unremarkable. No enlarged lymph nodes. Urinary bladder: Unremarkable as visualized. Reproductive: The prostate gland demonstrates moderate hyperplasia. Bones/joints: [id number] central spinal stenosis L2-L3, moderate central spinal stenosis L3-L4, moderate to severe central spinal stenosis L4-L5. Bulging annulus L5-S1. Osteoporosis. Soft tissues: 9.7 mm soft tissue nodule posterior aspect right lower lobe not demonstrated on the prior examination of 04/08/2019. Other findings: Cachexia. IMPRESSION: 1. 9.7 mm soft tissue nodule posterior aspect right lower lobe not demonstrated on the prior examination of 04/08/2019. Considering the other findings described in this report the lesion is worrisome for a metastasis. 2. There are hypodense hepatic masses demonstrated, the largest located in segment 2 of the left lobe of the liver demonstrating multiple punctate calcifications. 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 3. A small sliding hiatal hernia is present. 4. Multiple bilateral simple renal cysts measure up to 10 cm in the inferior aspect of the left kidney. Also noted are several probable hyperdense cysts in both the right and left kidneys measuring up to 2.1 cm. Confirmation with nonemergent renal ultrasound could be obtained if clinically desired. 5. There is increased feces throughout the colon consistent with constipation. There is mild dilatation of the proximal colon. 6. Moderate prostatic hyperplasia. 7. Cachexia. 8. Infrarenal abdominal aortic aneurysm. CTA chest: Pulmonary arteries: There are no pulmonary emboli. Aorta: There is fusiform dilatation of the supravalvular ascending thoracic aorta which measures 3.9 cm. maximally. There is no dissection or saccular component. Other arteries: There is moderate atherosclerosis in the thoracic aorta. Lungs: 9.6 mm noncalcified pulmonary parenchymal nodule in the lingular lobe, and 4.5 mm and 12 mm nodules in the right lower lobe not demonstrated on the prior study of 10/31/2019. Severe centrilobular and paraseptal emphysematous changes most pronounced in the upper mid lung zones. COPD. Pleural spaces: Small bilateral pleural effusions. Heart: There is moderate atherosclerotic calcification of the coronary arteries. Lymph nodes: Unremarkable. No enlarged lymph nodes. Diaphragm: Small sliding hiatal hernia. Bones/joints: The spine demonstrates moderate degenerative changes. Soft tissues: Cavitating process in the superior segment of the left lower lobe measuring 3.5 x 2.6 x 5.3 cm containing a lobular soft tissue component on its lateral margin measuring 2.8 x 1.3 x 2.7 cm. Finding not demonstrated on the prior study of 10/31/2019. IMPRESSION: 1. 9.6 mm noncalcified pulmonary parenchymal nodule in the lingular lobe, and 4.5 mm and 12 mm nodules in the right lower lobe not demonstrated on the prior study of 10/31/2019. Findings worrisome for neoplasm. Correlation with PET imaging suggested as per Fleischner guidelines. 2. Cavitating process in the superior segment of the left lower lobe measuring 3.5 x 2.6 x 5.3 cm containing a lobular soft tissue component on its lateral margin measuring 2.8 x 1.3 x 2.7 cm. Finding not demonstrated on the prior study of 10/31/2019. Finding worrisome for neoplasm. Correlation with PET imaging suggested. 3. There is fusiform dilatation of the supravalvular ascending thoracic aorta which measures 3.9 cm. maximally. There is no dissection or saccular component. 4. Small bilateral pleural effusions. 5. There are no pulmonary emboli. 6. Severe centrilobular and paraseptal emphysematous changes most pronounced in the upper mid lung zones. COPD. Assessment: 75 year old M with inoperative colorectal CA and and mild cognitive impairment who presented for weakness and diarrhea and ultimately shown to have likely slow bleed due to inoperative colorectal cancer, despite negative occult stool and was found to have C.diff now on PO vanc with course c/b E.coli UTI. Plan 1. Iron deficiency anemia -Most likely 2/2 slow chronic bleed from CRC -Patient was transfused with 2u -Responded appropriately -H&H stable 2. C.diff positive -No leukocytosis or fever, but with diarrhea -Continue PO vancomycin day 7, but will need 5 more days given recent 5d of levaquin Continue probiotics 3. Constipation -Patient reports diarrhea, but CT abd/pelvis demonstrates large stool burden -Most likely overflow diarrhea -monitoring examination and stooling 4. Dysuria with E. coli UTI -Urine culture grew greater than 100,000 E. coli that are resistant to Unasyn and cefazolin Levofloxacin day 5, completing today. 5. COPD -Chronically on 3L -Continue PRN albuterol - duonebs rq6h 6. History of Schizophrenia -Continue Zyprexa and Sertraline 7. Paroxysmal atrial fibrillation -Currently in sinus rhythm -Not on rate control, rhythm control, or anticoagulation 8. DVT ppx -SCD and TEDs Disposition: PT/OT working with PFS for safe discharge planning. VS,Dania, I+O VS, Dania, I+O Laboratory Tests 01/21/21 05:52 Vital Signs Date Time Temp Pulse Resp B/P (MAP) Pulse Ox O2 Delivery O2 Flow Rate FiO2 01/21/21 14:00 97.0 75 16 135/54 (81) 97 High Flow Cannula 6.0 I&O- Last 24 Hours up to 6 AM 01/21/21 06:00 Intake Total 1390 ml Balance 1390 ml BERT MCGOWAN MD Jan 21, 2021 15:37
[2021-01-21] MEDS: OLANZapine 2.5MG TABLET PO SCH (20:15)
[2021-01-21 22:00] VITALS: BP 132/55
[2021-01-22] MEDS: VANCOMYCIN ORAL SOL 250MG/5ML ORAL SYRINGE PO SCH ×4 (00:19→17:10)
[2021-01-22] MEDS: IPRATROPIUM 0.5MG/ALBUTEROL 2.5MG INH SOL UD 3ML (DUONEB) NEB SCH ×4 (01:08→19:52)
[2021-01-22 06:00] VITALS: BP 150/73
[2021-01-22 06:48] LABS: HEMATOCRIT 28.5 % (42.0-52.0); HEMOGLOBIN 8.1 g/dl (13.5-17.5); MEAN CORPUSCULAR HEMOGLOBIN 27.3 pg (27.0-33.0); MEAN CORPUSCULAR HGB CONC 28.4 g/dl (32.0-36.5); PLATELET COUNT, AUTOMATED 236 10^3/uL (150-450); RED BLOOD COUNT 2.97 10^6/uL (4.30-6.10); WHITE BLOOD COUNT 7.3 10^3/uL (4.0-10.0)
[2021-01-22 07:30] VITALS: BP 156/81
[2021-01-22 07:33] LABS: BLOOD UREA NITROGEN 12 MG/DL (7-18); CALCIUM LEVEL 8.7 MG/DL (8.8-10.2); CARBON DIOXIDE LEVEL 51 MEQ/L (21-32); CHLORIDE LEVEL 90 MEQ/L (98-107); CREATININE FOR GFR 0.66 MG/DL (0.70-1.30); GLOMERULAR FILTRATION RATE > 60.0 (>42); GLUCOSE, FASTING 93 MG/DL (70-100); POTASSIUM SERUM 4.1 MEQ/L (3.5-5.1); SODIUM LEVEL 142 MEQ/L (136-145)
[2021-01-22] MEDS: PANTOPRAZOLE 40MG VIAL (C9113 PER 1) IV SCH (08:52)
[2021-01-22] MEDS: LACTOBACILLUS ACIDOPHILUS CAP (BACID) PO SCH ×2 (09:00→17:10)
[2021-01-22] MEDS: SUCRALFATE SUSP 1GM/10ML UD PO SCH ×4 (09:00→20:50)
[2021-01-22] MEDS: DOCUSATE SODIUM 100MG CAPSULE PO SCH ×2 (09:01→20:50)
[2021-01-22] MEDS: SERTRALINE HCL 50 MG TAB PO SCH (09:01)
[2021-01-22 14:00] VITALS: BP 154/74
--- NOTE | 2021-01-22 14:00 | IPNPDOC ---
Text Note Date of Service The patient was seen on 01/22/21. NOTE SUBJECTIVE: -No acute complaints PHYSICAL EXAMINATION: VITAL SIGNS: Please see below. GENERAL APPEARANCE: Resting comfortably in bed. Appears older than stated age. In no acute distress HEENT: No mass or lesion. Nasal canula in place. EOMI. No scleral icterus. Nares patent. oral mucosa moist CARDIOVASCULAR: Regular rate, rhythm. no murmurs, rubs, gallops LUNGS: Decreased breath sounds b/l. no adventitious lung sounds ABDOMEN: Hypoactive bowel sounds, Soft, mild tenderness throughout EXTREMITIES: No pedal edema appreciated. No overlying skin changes. Pulses intact NEUROLOGICAL: Speech clear. A+Ox3. No focal deficit. PSYCHIATRIC: AOx3 LABORATORY DATA: Reviewed. See below. WBC 7.3 hgb 8.1 Platelets 236 na 142 K 4.1 Cr 0.66 IMAGING: [CXR: FINDINGS: The technique utilized in obtaining the radiograph has magnified the cardiac silhouette and accentuated the interstitial markings. The cardiomediastinal silhouette lung bullock are unchanged. There is mild cardiomegaly accentuated by technique. There is evidence of interstitial fibrotic change. There are no acute patchy parenchymal opacities or pleural effusions. IMPRESSION: There is no acute cardiopulmonary disease. The exam is limited. Repeat exam is recommended without apical lordotic technique. Head CT: FINDINGS: The ventricles and sulci are unchanged. There are no acute extra-axial fluid collections. There is no shift of the midline structures. The deep white matter is unchanged. The posterior fossa is unchanged. The skull and paranasal sinuses are unchanged. IMPRESSION: There is no evidence of acute intracranial pathology or significant change compared to the prior exam. CT Abd/pelvis: FINDINGS: Diaphragm: A small sliding hiatal hernia is present. Liver: There are hypodense hepatic masses demonstrated, the largest located in segment 2 of the left lobe of the liver demonstrating multiple punctate calcifications. 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 Hepatomegaly. Gallbladder and bile ducts: Normal. No calcified stones. No ductal dilation. Pancreas: Visible nondilated pancreatic duct. Pancreas otherwise appears unremarkable. Spleen: Normal. No splenomegaly. Adrenal glands: Normal. No mass. Kidneys and ureters: Multiple bilateral simple renal cysts measure up to 10 cm in the inferior aspect of the left kidney. Also noted are several probable hyperdense cysts in both the right and left kidneys measuring up to 2.1 cm. Confirmation with nonemergent renal ultrasound could be obtained if clinically desired. Stomach and bowel: There is increased feces throughout the colon consistent with constipation. There is mild dilatation of the proximal colon. There is a large mass likely arising from the rectosigmoid colon filling much of the deep central pelvis measuring approximately 6.5 x 7.2 x 6.9 cm. Findings consistent with a locally invasive distal colonic neoplasm. Impression Appendix: No evidence of appendicitis. Intraperitoneal space: Unremarkable. No free air. No significant fluid collection. Vasculature: The aortoiliac vessels demonstrate moderate atherosclerotic calcification. There is an infrarenal focal abdominal aortic aneurysm measuring 3.3 cm maximum transverse dimensions extending craniocaudad for 4 cm. Lymph nodes: Unremarkable. No enlarged lymph nodes. Urinary bladder: Unremarkable as visualized. Reproductive: The prostate gland demonstrates moderate hyperplasia. Bones/joints: [id number] central spinal stenosis L2-L3, moderate central spinal stenosis L3-L4, moderate to severe central spinal stenosis L4-L5. Bulging annulus L5-S1. Osteoporosis. Soft tissues: 9.7 mm soft tissue nodule posterior aspect right lower lobe not demonstrated on the prior examination of 04/08/2019. Other findings: Cachexia. IMPRESSION: 1. 9.7 mm soft tissue nodule posterior aspect right lower lobe not demonstrated on the prior examination of 04/08/2019. Considering the other findings described in this report the lesion is worrisome for a metastasis. 2. There are hypodense hepatic masses demonstrated, the largest located in segment 2 of the left lobe of the liver demonstrating multiple punctate calcifications. 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 3. A small sliding hiatal hernia is present. 4. Multiple bilateral simple renal cysts measure up to 10 cm in the inferior aspect of the left kidney. Also noted are several probable hyperdense cysts in both the right and left kidneys measuring up to 2.1 cm. Confirmation with nonemergent renal ultrasound could be obtained if clinically desired. 5. There is increased feces throughout the colon consistent with constipation. There is mild dilatation of the proximal colon. 6. Moderate prostatic hyperplasia. 7. Cachexia. 8. Infrarenal abdominal aortic aneurysm. CTA chest: Pulmonary arteries: There are no pulmonary emboli. Aorta: There is fusiform dilatation of the supravalvular ascending thoracic aorta which measures 3.9 cm. maximally. There is no dissection or saccular component. Other arteries: There is moderate atherosclerosis in the thoracic aorta. Lungs: 9.6 mm noncalcified pulmonary parenchymal nodule in the lingular lobe, and 4.5 mm and 12 mm nodules in the right lower lobe not demonstrated on the prior study of 10/31/2019. Severe centrilobular and paraseptal emphysematous changes most pronounced in the upper mid lung zones. COPD. Pleural spaces: Small bilateral pleural effusions. Heart: There is moderate atherosclerotic calcification of the coronary arteries. Lymph nodes: Unremarkable. No enlarged lymph nodes. Diaphragm: Small sliding hiatal hernia. Bones/joints: The spine demonstrates moderate degenerative changes. Soft tissues: Cavitating process in the superior segment of the left lower lobe measuring 3.5 x 2.6 x 5.3 cm containing a lobular soft tissue component on its lateral margin measuring 2.8 x 1.3 x 2.7 cm. Finding not demonstrated on the prior study of 10/31/2019. IMPRESSION: 1. 9.6 mm noncalcified pulmonary parenchymal nodule in the lingular lobe, and 4.5 mm and 12 mm nodules in the right lower lobe not demonstrated on the prior study of 10/31/2019. Findings worrisome for neoplasm. Correlation with PET imaging suggested as per Fleischner guidelines. 2. Cavitating process in the superior segment of the left lower lobe measuring 3.5 x 2.6 x 5.3 cm containing a lobular soft tissue component on its lateral margin measuring 2.8 x 1.3 x 2.7 cm. Finding not demonstrated on the prior study of 10/31/2019. Finding worrisome for neoplasm. Correlation with PET imaging suggested. 3. There is fusiform dilatation of the supravalvular ascending thoracic aorta which measures 3.9 cm. maximally. There is no dissection or saccular component. 4. Small bilateral pleural effusions. 5. There are no pulmonary emboli. 6. Severe centrilobular and paraseptal emphysematous changes most pronounced in the upper mid lung zones. COPD. Assessment: 75 year old M with inoperative colorectal CA and and mild cognitive impairment who presented for weakness and diarrhea and ultimately shown to have likely slow bleed due to inoperative colorectal cancer, despite negative occult stool and was found to have C.diff now on PO vanc with course c/b E.coli UTI. Plan 1. Iron deficiency anemia -Most likely 2/2 slow chronic bleed from CRC -Patient was transfused with 2u -Responded appropriately -H&H stable 2. C.diff positive -No leukocytosis or fever, but with diarrhea -Continue PO vancomycin day 8, but will need 5 more days given recent 5d of levaquin. So total will be 15d. Continue probiotics 3. Constipation -Patient reports diarrhea, but CT abd/pelvis demonstrates large stool burden -Most likely overflow diarrhea -monitoring examination and stooling 4. E. coli UTI -Urine culture grew greater than 100,000 E. coli that are resistant to Unasyn and cefazolin s/p 5d of Levofloxacin, completed 01/21 5. COPD -Chronically on 3L -Continue PRN albuterol - duonebs rq6h 6. History of Schizophrenia -Continue Zyprexa and Sertraline 7. Paroxysmal atrial fibrillation -Currently in sinus rhythm -Not on rate control, rhythm control, or anticoagulation 8. DVT ppx -SCD and TEDs Disposition: PT/OT working with PFS for safe discharge planning. Now making ALC pending SNF placement and ongoing PT/OT. VS,Fishbone, I+O VS, Fishbone, I+O Laboratory Tests 01/22/21 06:05 Vital Signs Date Time Temp Pulse Resp B/P (MAP) Pulse Ox O2 Delivery O2 Flow Rate FiO2 01/22/21 07:30 98.8 85 20 156/81 (106) 93 High Flow Cannula 5.0 I&O- Last 24 Hours up to 6 AM 01/22/21 06:00 Intake Total 920 ml Balance 920 ml BERT MCGOWAN MD Jan 22, 2021 10:02
[2021-01-22] MEDS ORDERED: FUROSEMIDE 40 MG TAB PO ONE (15:30)
[2021-01-22] MEDS ORDERED: ONDANSETRON 4 MG ORAL DISINTEGRATING TAB PO PRN (15:30)
[2021-01-22] MEDS: PANTOPRAZOLE 40MG TAB (PROTONIX) PO SCH (20:50)
[2021-01-22] MEDS: OLANZapine 2.5MG TABLET PO SCH (20:50)
[2021-01-22 22:00] VITALS: BP 146/68
[2021-01-23] MEDS: VANCOMYCIN ORAL SOL 250MG/5ML ORAL SYRINGE PO SCH ×5 (00:14→23:18)
[2021-01-23] MEDS: IPRATROPIUM 0.5MG/ALBUTEROL 2.5MG INH SOL UD 3ML (DUONEB) NEB SCH ×4 (01:28→19:26)
[2021-01-23] MEDS: SUCRALFATE SUSP 1GM/10ML UD PO SCH ×4 (05:51→20:13)
[2021-01-23 05:59] LABS: HEMATOCRIT 26.5 % (42.0-52.0); HEMOGLOBIN 7.5 g/dl (13.5-17.5); MEAN CORPUSCULAR HEMOGLOBIN 26.8 pg (27.0-33.0); MEAN CORPUSCULAR HGB CONC 28.3 g/dl (32.0-36.5); MEAN CORPUSCULAR VOLUME 94.6 fl (80.0-96.0); PLATELET COUNT, AUTOMATED 214 10^3/uL (150-450); WHITE BLOOD COUNT 8.6 10^3/uL (4.0-10.0)
[2021-01-23 06:00] VITALS: BP 136/56
[2021-01-23 06:59] LABS: BLOOD UREA NITROGEN 17 MG/DL (7-18); CALCIUM LEVEL 8.3 MG/DL (8.8-10.2); CHLORIDE LEVEL 89 MEQ/L (98-107); CREATININE FOR GFR 0.73 MG/DL (0.70-1.30); GLOMERULAR FILTRATION RATE > 60.0 (>42); GLUCOSE, FASTING 85 MG/DL (70-100); SODIUM LEVEL 141 MEQ/L (136-145)
[2021-01-23 07:00] LABS: CARBON DIOXIDE LEVEL 53 MEQ/L (21-32)
[2021-01-23] MEDS: LACTOBACILLUS ACIDOPHILUS CAP (BACID) PO SCH ×2 (09:24→17:13)
[2021-01-23] MEDS: SERTRALINE HCL 50 MG TAB PO SCH (09:24)
[2021-01-23] MEDS: PANTOPRAZOLE 40MG TAB (PROTONIX) PO SCH ×2 (09:24→20:13)
[2021-01-23] MEDS: DOCUSATE SODIUM 100MG CAPSULE PO SCH ×2 (09:24→20:13)
[2021-01-23 14:00] VITALS: BP 134/62
[2021-01-23] MEDS: OLANZapine 2.5MG TABLET PO SCH (20:13)
[2021-01-23 22:00] VITALS: BP 138/64
[2021-01-24] MEDS: IPRATROPIUM 0.5MG/ALBUTEROL 2.5MG INH SOL UD 3ML (DUONEB) NEB SCH ×4 (01:23→19:26)
[2021-01-24] MEDS: VANCOMYCIN ORAL SOL 250MG/5ML ORAL SYRINGE PO SCH ×3 (05:57→17:01)
[2021-01-24 06:47] VITALS: BP 140/64
[2021-01-24 06:53] LABS: HEMATOCRIT 28.5 % (42.0-52.0); MEAN CORPUSCULAR HEMOGLOBIN 26.8 pg (27.0-33.0); MEAN CORPUSCULAR HGB CONC 28.1 g/dl (32.0-36.5); MEAN CORPUSCULAR VOLUME 95.3 fl (80.0-96.0); PLATELET COUNT, AUTOMATED 231 10^3/uL (150-450); RED BLOOD COUNT 2.99 10^6/uL (4.30-6.10); WHITE BLOOD COUNT 8.6 10^3/uL (4.0-10.0)
[2021-01-24 07:32] LABS: BLOOD UREA NITROGEN 21 MG/DL (7-18); CARBON DIOXIDE LEVEL 46 MEQ/L (21-32); CHLORIDE LEVEL 94 MEQ/L (98-107); CREATININE FOR GFR 0.65 MG/DL (0.70-1.30); GLOMERULAR FILTRATION RATE > 60.0 (>42); GLUCOSE, FASTING 108 MG/DL (70-100); POTASSIUM SERUM 4.2 MEQ/L (3.5-5.1); SODIUM LEVEL 142 MEQ/L (136-145)
[2021-01-24] MEDS: LACTOBACILLUS ACIDOPHILUS CAP (BACID) PO SCH ×2 (08:30→17:01)
[2021-01-24] MEDS: SUCRALFATE SUSP 1GM/10ML UD PO SCH ×4 (08:30→21:08)
[2021-01-24] MEDS: PANTOPRAZOLE 40MG TAB (PROTONIX) PO SCH ×2 (08:30→21:08)
[2021-01-24] MEDS: DOCUSATE SODIUM 100MG CAPSULE PO SCH ×2 (08:30→21:08)
[2021-01-24] MEDS: SERTRALINE HCL 50 MG TAB PO SCH (08:30)
[2021-01-24] MEDS: OLANZapine 2.5MG TABLET PO SCH (21:08)
[2021-01-25] VITALS (7 sets, daily range): BP systolic 123–137; BP diastolic 59–71
[2021-01-25] MEDS: VANCOMYCIN ORAL SOL 250MG/5ML ORAL SYRINGE PO SCH ×4 (00:45→17:43)
[2021-01-25] MEDS: IPRATROPIUM 0.5MG/ALBUTEROL 2.5MG INH SOL UD 3ML (DUONEB) NEB SCH ×4 (01:12→19:14)
[2021-01-25 06:28] LABS: HEMOGLOBIN 7.2 g/dl (13.5-17.5); MEAN CORPUSCULAR HEMOGLOBIN 26.6 pg (27.0-33.0); MEAN CORPUSCULAR HGB CONC 27.7 g/dl (32.0-36.5); MEAN CORPUSCULAR VOLUME 95.9 fl (80.0-96.0); PLATELET COUNT, AUTOMATED 220 10^3/uL (150-450); RED BLOOD COUNT 2.71 10^6/uL (4.30-6.10); WHITE BLOOD COUNT 10.1 10^3/uL (4.0-10.0)
[2021-01-25 06:46] LABS: BLOOD UREA NITROGEN 19 MG/DL (7-18); CALCIUM LEVEL 8.1 MG/DL (8.8-10.2); CARBON DIOXIDE LEVEL 44 MEQ/L (21-32); CHLORIDE LEVEL 96 MEQ/L (98-107); CREATININE FOR GFR 0.64 MG/DL (0.70-1.30); GLOMERULAR FILTRATION RATE > 60.0 (>42); GLUCOSE, FASTING 90 MG/DL (70-100); POTASSIUM SERUM 4.6 MEQ/L (3.5-5.1); SODIUM LEVEL 142 MEQ/L (136-145)
[2021-01-25] MEDS: DOCUSATE SODIUM 100MG CAPSULE PO SCH ×2 (07:52→19:46)
[2021-01-25] MEDS: SERTRALINE HCL 50 MG TAB PO SCH (07:52)
[2021-01-25] MEDS: SUCRALFATE SUSP 1GM/10ML UD PO SCH ×4 (07:52→19:45)
[2021-01-25] MEDS: LACTOBACILLUS ACIDOPHILUS CAP (BACID) PO SCH ×2 (07:52→17:43)
[2021-01-25] MEDS: PANTOPRAZOLE 40MG TAB (PROTONIX) PO SCH ×2 (07:52→19:46)
[2021-01-25] MEDS: OLANZapine 2.5MG TABLET PO SCH (19:46)
[2021-01-26] MEDS: VANCOMYCIN ORAL SOL 250MG/5ML ORAL SYRINGE PO SCH ×4 (00:36→18:38)
[2021-01-26] MEDS: IPRATROPIUM 0.5MG/ALBUTEROL 2.5MG INH SOL UD 3ML (DUONEB) NEB SCH ×3 (01:18→18:03)
[2021-01-26 06:00] VITALS: BP 148/68
[2021-01-26 06:25] LABS: HEMATOCRIT 29.1 % (42.0-52.0); HEMOGLOBIN 8.2 g/dl (13.5-17.5); MEAN CORPUSCULAR HEMOGLOBIN 26.6 pg (27.0-33.0); MEAN CORPUSCULAR HGB CONC 28.2 g/dl (32.0-36.5); MEAN CORPUSCULAR VOLUME 94.5 fl (80.0-96.0); PLATELET COUNT, AUTOMATED 229 10^3/uL (150-450); RED BLOOD COUNT 3.08 10^6/uL (4.30-6.10); WHITE BLOOD COUNT 8.1 10^3/uL (4.0-10.0)
[2021-01-26 06:51] LABS: BLOOD UREA NITROGEN 19 MG/DL (7-18); CALCIUM LEVEL 8.8 MG/DL (8.8-10.2); CARBON DIOXIDE LEVEL 44 MEQ/L (21-32); CHLORIDE LEVEL 97 MEQ/L (98-107); CREATININE FOR GFR 0.57 MG/DL (0.70-1.30); GLOMERULAR FILTRATION RATE > 60.0 (>42); GLUCOSE, FASTING 102 MG/DL (70-100); POTASSIUM SERUM 4.5 MEQ/L (3.5-5.1); SODIUM LEVEL 142 MEQ/L (136-145)
[2021-01-26] MEDS: LACTOBACILLUS ACIDOPHILUS CAP (BACID) PO SCH ×2 (08:25→18:38)
[2021-01-26] MEDS: SERTRALINE HCL 50 MG TAB PO SCH (08:25)
[2021-01-26] MEDS: DOCUSATE SODIUM 100MG CAPSULE PO SCH ×2 (08:25→20:04)
[2021-01-26] MEDS: SUCRALFATE SUSP 1GM/10ML UD PO SCH ×4 (08:25→20:04)
[2021-01-26] MEDS: PANTOPRAZOLE 40MG TAB (PROTONIX) PO SCH ×2 (08:25→20:04)
[2021-01-26] MEDS: OLANZapine 2.5MG TABLET PO SCH (20:04)
[2021-01-27] MEDS: IPRATROPIUM 0.5MG/ALBUTEROL 2.5MG INH SOL UD 3ML (DUONEB) NEB SCH ×4 (01:13→19:26)
[2021-01-27 06:00] VITALS: BP 131/57
[2021-01-27 06:28] LABS: HEMATOCRIT 30.6 % (42.0-52.0); HEMOGLOBIN 8.9 g/dl (13.5-17.5); MEAN CORPUSCULAR HEMOGLOBIN 27.5 pg (27.0-33.0); MEAN CORPUSCULAR HGB CONC 29.1 g/dl (32.0-36.5); MEAN CORPUSCULAR VOLUME 94.4 fl (80.0-96.0); PLATELET COUNT, AUTOMATED 256 10^3/uL (150-450); RED BLOOD COUNT 3.24 10^6/uL (4.30-6.10); WHITE BLOOD COUNT 6.5 10^3/uL (4.0-10.0)
[2021-01-27 06:49] LABS: BLOOD UREA NITROGEN 23 MG/DL (7-18); CALCIUM LEVEL 9.1 MG/DL (8.8-10.2); CARBON DIOXIDE LEVEL 44 MEQ/L (21-32); CHLORIDE LEVEL 96 MEQ/L (98-107); GLOMERULAR FILTRATION RATE > 60.0 (>42); GLUCOSE, FASTING 100 MG/DL (70-100); POTASSIUM SERUM 4.4 MEQ/L (3.5-5.1); SODIUM LEVEL 139 MEQ/L (136-145)
[2021-01-27] MEDS: DOCUSATE SODIUM 100MG CAPSULE PO SCH ×2 (08:26→20:09)
[2021-01-27] MEDS: LACTOBACILLUS ACIDOPHILUS CAP (BACID) PO SCH ×2 (08:26→17:05)
[2021-01-27] MEDS: SERTRALINE HCL 50 MG TAB PO SCH (08:26)
[2021-01-27] MEDS: PANTOPRAZOLE 40MG TAB (PROTONIX) PO SCH ×2 (08:26→20:08)
[2021-01-27] MEDS: SUCRALFATE SUSP 1GM/10ML UD PO SCH ×4 (08:26→20:08)
[2021-01-27] MEDS: OLANZapine 2.5MG TABLET PO SCH (20:08)
[2021-01-28] MEDS: IPRATROPIUM 0.5MG/ALBUTEROL 2.5MG INH SOL UD 3ML (DUONEB) NEB SCH ×2 (02:09→08:26)
[2021-01-28 06:00] VITALS: BP 144/63
[2021-01-28 06:28] LABS: HEMATOCRIT 29.8 % (42.0-52.0); HEMOGLOBIN 8.6 g/dl (13.5-17.5); MEAN CORPUSCULAR HEMOGLOBIN 26.9 pg (27.0-33.0); MEAN CORPUSCULAR HGB CONC 28.9 g/dl (32.0-36.5); MEAN CORPUSCULAR VOLUME 93.1 fl (80.0-96.0); PLATELET COUNT, AUTOMATED 270 10^3/uL (150-450); WHITE BLOOD COUNT 7.1 10^3/uL (4.0-10.0)
[2021-01-28 06:47] LABS: BLOOD UREA NITROGEN 25 MG/DL (7-18); CALCIUM LEVEL 8.9 MG/DL (8.8-10.2); CARBON DIOXIDE LEVEL 41 MEQ/L (21-32); CHLORIDE LEVEL 97 MEQ/L (98-107); CREATININE FOR GFR 0.65 MG/DL (0.70-1.30); GLOMERULAR FILTRATION RATE > 60.0 (>42); GLUCOSE, FASTING 94 MG/DL (70-100); POTASSIUM SERUM 4.5 MEQ/L (3.5-5.1); SODIUM LEVEL 141 MEQ/L (136-145)
[2021-01-28] MEDS: SERTRALINE HCL 50 MG TAB PO SCH (08:00)
[2021-01-28] MEDS: LACTOBACILLUS ACIDOPHILUS CAP (BACID) PO SCH (08:00)
[2021-01-28] MEDS: SUCRALFATE SUSP 1GM/10ML UD PO SCH (08:00)
[2021-01-28] MEDS: PANTOPRAZOLE 40MG TAB (PROTONIX) PO SCH (08:00)
[2021-01-28] MEDS: DOCUSATE SODIUM 100MG CAPSULE PO SCH (08:00)
[2021-01-28] MEDS ORDERED: IPRA0.00 NEB (08:32)
[2021-01-28] MEDS ORDERED: COLA100C5 PO (08:32)
[2021-01-28] MEDS ORDERED: GLYCADSU PR (08:32)
[2021-01-28] MEDS ORDERED: MIRA1POW3 PO (08:32)
[2021-01-28] MEDS ORDERED: ONDA4TAB6 PO (08:32)
[2021-01-28] MEDS ORDERED: PANT40TA29 PO (08:32)
[2021-01-28] MEDS ORDERED: SUCR1ORA PO (08:32)
[2021-01-28] MEDS ORDERED: RISATAB3 PO (08:32)
--- NOTE | 2021-01-28 08:42 | DS.PDOC ---
Discharge Summary General Date of Admission Jan 13, 2021 at 22:34 Date of Discharge 01/28/21 Discharge Summary PROCEDURES PERFORMED DURING STAY: [None]. DISCHARGE DIAGNOSES: Posthemorrhagic anemia from GI bleed Iron deficiency Generalized weakness and debility next point for C. difficile infection Constipation with overflow diarrhea Rectal cancer diagnosed in 2019 with hepatic metastasis has a large rectosigmoid mass with proximal colonic dilatation Secondary diagnosis next point mild cognitive impairment recurrent GI bleed and posthemorrhagic anemia from rectal cancer History of DVT and pulmonary embolism refused IVC filter placement in the past cannot be anticoagulated next point paroxysmal A. fib/a flutter COPD Chronic respiratory failure with hypoxia and hypercarbia Chronic diastolic heart failure Severe pulmonary hypertension with chronic right heart failure next point umbilical hernia Severe protein calorie malnutrition Peptic ulcer disease with duodenal ulcer perforation in March 2019 Schizophrenia Depression next point possible complex partial seizures BPH with recurrent urinary retentions History of hyperlipidemia next point history of hypothyroid History of hypertension with severe hypertensive heart disease next point hiatal hernia Infrarenal abdominal aortic aneurysm 3.3 to 4 cm COMPLICATIONS/CHIEF COMPLAINT: Anemia; Gi Bleed. HOSPITAL COURSE: 75-year-old male with inoperative colorectal cancer located at the rectosigmoid junction, mild cognitive impairment who presented to [facility] ED on 01/13/2021 for weakness and diarrhea. He was found to have severe anemia with hemoglobin of 6.5. And his GI panel was positive for C. difficile. He was admitted for posthemorrhagic and anemia and C. difficile infection. He received 3 units of PRBC with appropriate response in his hemoglobin level and at present remains stable. He was treated with p.o. vancomycin for C. difficile for 12 days. Hospital course was complicated by E. coli UTI for which he received 5-day course of levofloxacin. Posthemorrhagic anemia with iron deficiency Secondary to slow GI bleed from colorectal cancer Patient received 3 units of PRBC C. difficile infection Finished vancomycin for 12 days Constipation with overflow diarrhea Patient reports diarrhea but CT abdomen pelvis demonstrates large colonic stool burden so this most likely is overflow diarrhea E. coli UTI Urine culture grew greater than 100,000 unit E. coli that was resistant to Unasyn and cefazolin Status post 5 days of levofloxacin completed on 01/21/2021 COPD with chronic hypoxic and hypercarbic respiratory failure On 3 L of oxygen Continue DuoNebs and albuterol as needed History of schizophrenia Continue Zyprexa and sertraline Paroxysmal atrial fibrillation Currently in sinus rhythm Has not needed any rate control agents or rhythm control agents cannot be anticoagulated DISCHARGE MEDICATIONS: Please see below. ALLERGIES: Please see below. PHYSICAL EXAMINATION ON DISCHARGE: VITAL SIGNS: Please see below. GENERAL APPEARANCE: Resting comfortably in bed. Appears older than stated age. In no acute distress HEENT: No mass or lesion. Nasal canula in place. EOMI. No scleral icterus. Nares patent. oral mucosa moist CARDIOVASCULAR: Regular rate, rhythm. no murmurs, rubs, gallops LUNGS: Decreased breath sounds b/l. no adventitious lung sounds ABDOMEN: Hypoactive bowel sounds, Soft, mild tenderness throughout EXTREMITIES: No pedal edema appreciated. No overlying skin changes. Pulses intact NEUROLOGICAL: Speech clear. A+Ox3. No focal deficit. PSYCHIATRIC: AOx3 LABORATORY DATA: Please see below. IMAGING: [CXR: FINDINGS: The technique utilized in obtaining the radiograph has magnified the cardiac silhouette and accentuated the interstitial markings. The cardiomediastinal silhouette lung bullock are unchanged. There is mild cardiomegaly accentuated by technique. There is evidence of interstitial fibrotic change. There are no acute patchy parenchymal opacities or pleural effusions. IMPRESSION: There is no acute cardiopulmonary disease. The exam is limited. Repeat exam is recommended without apical lordotic technique. Head CT: FINDINGS: The ventricles and sulci are unchanged. There are no acute extra-axial fluid collections. There is no shift of the midline structures. The deep white matter is unchanged. The posterior fossa is unchanged. The skull and paranasal sinuses are unchanged. IMPRESSION: There is no evidence of acute intracranial pathology or significant change compared to the prior exam. CT Abd/pelvis: FINDINGS: Diaphragm: A small sliding hiatal hernia is present. Liver: There are hypodense hepatic masses demonstrated, the largest located in segment 2 of the left lobe of the liver demonstrating multiple punctate calcifications. 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 Hepatomegaly. Gallbladder and bile ducts: Normal. No calcified stones. No ductal dilation. Pancreas: Visible nondilated pancreatic duct. Pancreas otherwise appears unremarkable. Spleen: Normal. No splenomegaly. Adrenal glands: Normal. No mass. Kidneys and ureters: Multiple bilateral simple renal cysts measure up to 10 cm in the inferior aspect of the left kidney. Also noted are several probable hyperdense cysts in both the right and left kidneys measuring up to 2.1 cm. Confirmation with nonemergent renal ultrasound could be obtained if clinically desired. Stomach and bowel: There is increased feces throughout the colon consistent with constipation. There is mild dilatation of the proximal colon. There is a large mass likely arising from the rectosigmoid colon filling much of the deep central pelvis measuring approximately 6.5 x 7.2 x 6.9 cm. Findings consistent with a locally invasive distal colonic neoplasm. Impression Appendix: No evidence of appendicitis. Intraperitoneal space: Unremarkable. No free air. No significant fluid collection. Vasculature: The aortoiliac vessels demonstrate moderate atherosclerotic calcification. There is an infrarenal focal abdominal aortic aneurysm measuring 3.3 cm maximum transverse dimensions extending craniocaudad for 4 cm. Lymph nodes: Unremarkable. No enlarged lymph nodes. Urinary bladder: Unremarkable as visualized. Reproductive: The prostate gland demonstrates moderate hyperplasia. Bones/joints: [id number] central spinal stenosis L2-L3, moderate central spinal stenosis L3-L4, moderate to severe central spinal stenosis L4-L5. Bulging annulus L5-S1. Osteoporosis. Soft tissues: 9.7 mm soft tissue nodule posterior aspect right lower lobe not demonstrated on the prior examination of 04/08/2019. Other findings: Cachexia. IMPRESSION: 1. 9.7 mm soft tissue nodule posterior aspect right lower lobe not demonstrated on the prior examination of 04/08/2019. Considering the other findings described in this report the lesion is worrisome for a metastasis. 2. There are hypodense hepatic masses demonstrated, the largest located in segment 2 of the left lobe of the liver demonstrating multiple punctate calcifications. 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 3. A small sliding hiatal hernia is present. 4. Multiple bilateral simple renal cysts measure up to 10 cm in the inferior aspect of the left kidney. Also noted are several probable hyperdense cysts in both the right and left kidneys measuring up to 2.1 cm. Confirmation with nonemergent renal ultrasound could be obtained if clinically desired. 5. There is increased feces throughout the colon consistent with constipation. There is mild dilatation of the proximal colon. 6. Moderate prostatic hyperplasia. 7. Cachexia. 8. Infrarenal abdominal aortic aneurysm. CTA chest: Pulmonary arteries: There are no pulmonary emboli. Aorta: There is fusiform dilatation of the supravalvular ascending thoracic aorta which measures 3.9 cm. maximally. There is no dissection or saccular component. Other arteries: There is moderate atherosclerosis in the thoracic aorta. Lungs: 9.6 mm noncalcified pulmonary parenchymal nodule in the lingular lobe, and 4.5 mm and 12 mm nodules in the right lower lobe not demonstrated on the prior study of 10/31/2019. Severe centrilobular and paraseptal emphysematous changes most pronounced in the upper mid lung zones. COPD. Pleural spaces: Small bilateral pleural effusions. Heart: There is moderate atherosclerotic calcification of the coronary arteries. Lymph nodes: Unremarkable. No enlarged lymph nodes. Diaphragm: Small sliding hiatal hernia. Bones/joints: The spine demonstrates moderate degenerative changes. Soft tissues: Cavitating process in the superior segment of the left lower lobe measuring 3.5 x 2.6 x 5.3 cm containing a lobular soft tissue component on its lateral margin measuring 2.8 x 1.3 x 2.7 cm. Finding not demonstrated on the prior study of 10/31/2019. IMPRESSION: 1. 9.6 mm noncalcified pulmonary parenchymal nodule in the lingular lobe, and 4.5 mm and 12 mm nodules in the right lower lobe not demonstrated on the prior study of 10/31/2019. Findings worrisome for neoplasm. Correlation with PET imaging suggested as per Fleischner guidelines. 2. Cavitating process in the superior segment of the left lower lobe measuring 3.5 x 2.6 x 5.3 cm containing a lobular soft tissue component on its lateral margin measuring 2.8 x 1.3 x 2.7 cm. Finding not demonstrated on the prior study of 10/31/2019. Finding worrisome for neoplasm. Correlation with PET imaging suggested. 3. There is fusiform dilatation of the supravalvular ascending thoracic aorta which measures 3.9 cm. maximally. There is no dissection or saccular component. 4. Small bilateral pleural effusions. 5. There are no pulmonary emboli. 6. Severe centrilobular and paraseptal emphysematous changes most pronounced in the upper mid lung zones. COPD. ACTIVITY: [As tolerated]. DIET: Mechanical soft DISCHARGE PLAN: retirement DISCHARGE INSTRUCTIONS: Follow-up CBC as needed and transfuse as needed. DISCHARGE CONDITION: [Stable]. TIME SPENT ON DISCHARGE: 35 minutes. Vital Signs/I&Os Vital Signs Date Time Temp Pulse Resp B/P (MAP) Pulse Ox O2 Delivery O2 Flow Rate FiO2 01/28/21 06:00 99.5 68 18 144/63 (90) 99 01/27/21 20:00 5.0 01/27/21 06:00 Nasal Cannula I&O- Last 24 Hours up to 6 AM 01/28/21 06:00 Intake Total 500 ml Output Total 2050 ml Balance -1550 ml Laboratory Data Labs 24H Laboratory Tests 2 01/27/21 15:57: Coronavirus (COVID-19)(PCR) NEGATIVE 01/28/21 06:07: Nucleated Red Blood Cells % (auto) 0.0, Anion Gap 3L, Glomerular Filtration Rate > 60.0, Calcium Level 8.9 CBC/BMP Laboratory Tests 01/28/21 06:07 Microbiology Microbiology 01/20/21 Respiratory Virus Panel (PCR) ([facility]) - Final, Complete Discharge Medications Scheduled Docusate Sodium (Colace) 100 Mg Capsule, 100 MG PO BID Ipratropium/Albuterol Sulfate (Iprat-Albut 0.5-3(2.5) mg/3 ml) 3 Ml Ampul.neb, 3 ML NEB RQ6H L.acidoph/L.bulg/B.bif/S.therm (Leidy-Bid Caplet) 1 Each Tablet, 1 EA PO BIDWM Olanzapine (Olanzapine) 7.5 Mg Tablet, 7.5 MG PO QHS, (Reported) Pantoprazole Sodium (Pantoprazole Sodium) 40 Mg Tablet.dr, 40 MG PO BID Sertraline Hcl (Sertraline HCl) 50 Mg Tablet, 50 MG PO DAILY, (Reported) Sucralfate (Sucralfate) 1 Gm/10 Ml Oral.susp, 1 GM PO ACHS Scheduled PRN Albuterol Sulfate (Ventolin Hfa) 18 Gm Hfa.aer.ad, 2 PUFFS INH QID PRN for SOB/WHEEZING, (Reported) Glycerin (Adult Glycerin) 1 Each Supp.rect, 1 EA DE DAILYPRN PRN for CONSTIPATION Ondansetron (Ondansetron Odt) 4 Mg Tab.rapdis, 4 MG PO Q8HP PRN for NAUSEA OR VOMITING Polyethylene Glycol 3350 (Miralax) 17 Gm Powd.pack, 1 PKT PO DAILYPRN PRN for CONSTIPATION Allergies Coded Allergies: No Known Allergies (Unverified , 10/31/18) Britney Hansen MD Jan 28, 2021 08:42
== END 2021-01-28 11:15 | DRG 375 ==
LOC: M ED 14:26 → M ED INP 22:34 → ENRESERV 23:17 → M MSPAV 01-14 00:04
PROVIDERS: ADMIT Internal Medicine; ATTEND Internal Medicine Nephrology
DX: C19 Malignant neoplasm of rectosigmoid junction (principal); I50.32 Chronic diastolic (congestive) heart failure; C34.90 Malignant neoplasm of unspecified part of unspecified bronchus or lung; K92.2 Gastrointestinal hemorrhage, unspecified; N39.0 Urinary tract infection, site not specified; A04.72 Enterocolitis due to Clostridium difficile, not specified as recurrent; J96.12 Chronic respiratory failure with hypercapnia; J96.11 Chronic respiratory failure with hypoxia; D63.0 Anemia in neoplastic disease; J44.9 Chronic obstructive pulmonary disease, unspecified; Z99.81 Dependence on supplemental oxygen; I48.0 Paroxysmal atrial fibrillation; F20.9 Schizophrenia, unspecified; R19.7 Diarrhea, unspecified; Z98.41 Cataract extraction status, right eye; Z98.42 Cataract extraction status, left eye; Z87.891 Personal history of nicotine dependence; Z20.822 Contact with and (suspected) exposure to COVID-19; D50.0 Iron deficiency anemia secondary to blood loss (chronic); K59.00 Constipation, unspecified; Z79.899 Other long term (current) drug therapy; B96.20 Unspecified Escherichia coli [E. coli] as the cause of diseases classified elsewhere